=== PATIENT | female | born 1950 | race Caucasian/White ===

== ENCOUNTER 2019-02-09 14:37 | Outpatient (CLI) | payer OTHER, SELFPAY ==
--- NOTE | 2019-02-09 14:35 | DI.RAD_ITS ---
SYMPTOMS/DIAGNOSIS: RIGHT KNEE PAIN, M25.561 RIGHT KNEE: Three views of the right knee were obtained. Moderately severe narrowing of the lateral femorotibial joint space is seen. There is mild narrowing of the patellofemoral joint. Periarticular spurring is seen involving all three joint compartments. The bones are intact and normally mineralized. There is a small suprapatellar joint effusion. No radiopaque foreign bodies are seen in the soft tissues. IMPRESSION: Moderately severe osteoarthritis of the right knee.
== END 2019-02-09 14:57 ==
PROVIDERS: PCP Nurse Practitioner Family; Visit Provider Nurse Practitioner Adult Health
DX: M25.561 Pain in right knee (principal); M17.11 Unilateral primary osteoarthritis, right knee
CPT/HCPCS: 73562

== ENCOUNTER 2019-02-15 00:41 | Outpatient (CLI) | payer OTHER, SELFPAY ==
--- NOTE | 2019-02-15 08:30 | DI.MAMMO_ITS ---
SYMPTOM/DIAGNOSIS: SCREENING, Z12.31 MAMMOGRAMS: Mammograms were interpreted according to the usual protocol including computer analysis with CAD system, tomosynthesis and C view imaging. The breast tissue is of moderate radiodensity. When compared with the previous examination, interval development of a spiculated area of nodularity in the central portion of the right breast is demonstrated. There may be some small calcifications in the central portion of this lesion. The findings are highly suspicious for malignancy and further evaluation with mediolateral and craniocaudad compression spot films and ultrasound is recommended. IMPRESSION: Category 0. Breast density, category B. MQSA ASSESSMENT OF FINDINGS: Incomplete: Needs additional imaging evaluation. Category 0. Patient will receive a letter notifying them of these results. BI-RADS category B. There are scattered areas of fibroglandular density.
== END 2019-02-15 01:01 ==
PROVIDERS: PCP Nurse Practitioner Family; Visit Provider Nurse Practitioner Adult Health
DX: Z12.31 Encounter for screening mammogram for malignant neoplasm of breast (principal); R92.8 Other abnormal and inconclusive findings on diagnostic imaging of breast
CPT/HCPCS: 77063; 77067

== ENCOUNTER 2019-02-15 01:18 | Outpatient (CLI) | payer OTHER, SELFPAY ==
[2019-02-15 09:38] LABS: Anion Gap 11.3 mmol/L (3-11); BUN 23 mg/dL (7-18); CO2 27.7 mmol/L (21.0-32.0); CREATININE 0.78 mg/dL (0.55-1.02); Calcium 9.1 mg/dL (8.5-10.1); Chloride 104 mmol/L (98-107); Cholesterol 229 mg/dL (50-200); Glucose 92 mg/dL (70-100); HDL Cholesterol 59 mg/dL (40-60); LDL CHOLESTEROL 141 mg/dL (<100); Sodium 143 mmol/L (136-145); Triglyceride 115 mg/dL (30-150)
[2019-02-15 09:49] LABS: TSH (W/Ref FT4) 4.48 uIU/mL (0.358-3.74)
[2019-02-15 10:14] LABS: FREE T4 1.08 ng/dL (0.76-1.46)
== END 2019-02-15 01:38 ==
PROVIDERS: PCP Nurse Practitioner Family; Visit Provider Nurse Practitioner Adult Health
DX: I10 Essential (primary) hypertension (principal); R78.5 Finding of other psychotropic drug in blood; E03.9 Hypothyroidism, unspecified; Z13.1 Encounter for screening for diabetes mellitus
CPT/HCPCS: 36415; 80048; 80061; 83721; 84439; 84443

== ENCOUNTER 2019-02-21 00:28 | Outpatient (CLI) | payer OTHER, SELFPAY ==
--- NOTE | 2019-02-21 11:15 | DI.COMBO_ITS ---
SYMPTOM/DIAGNOSIS: F/U MAMMO, SPICULATED AREA OF NODULARITY CENTRAL PORTION RIGHT BREAST ADDITIONAL VIEWS AND RIGHT BREAST ULTRASOUND: Additional images are interpreted according to the usual protocol including tomosynthesis and 2D imaging. Additional views of the right breast again show a spiculated mass in the upper outer quadrant of the right breast posteriorly. There are also three new smaller asymmetric densities in the upper outer quadrant of the right breast in the retroareolar region. No suspicious microcalcifications are seen. A right breast ultrasound was performed. In the upper outer quadrant of the right breast, there is a 2.2 by 1.6 by 1.7 cm. hypoechoic, spiculated mass at the 9 o'clock position 5 cm. from the nipple. This appears to correspond to the larger deeper spiculated mass seen on the mammogram. In addition, there are three hypoechoic spiculated masses in the right breast, the largest is at the 10 o'clock position 5 cm. from the nipple and measures 0.8 by 0.6 by 0.7 cm. The two smaller lesions are at 9 o'clock 4 cm. from the nipple and measure 0.6 by 0.5 cm. IMPRESSION: Findings highly suspicious for malignancy. 2.2 cm. spiculated mass at the 9 o'clock position 5 cm. from the nipple which corresponds to the larger lesion seen on the mammogram. Three smaller new similar lesions in the upper outer quadrant which may reflect malignancy. MQSA ASSESSMENT OF FINDINGS: Highly suspicious of malignancy. Biopsy should be obtained. Category 5. Patient will receive a letter notifying them of these results. BI-RADS category B. There are scattered areas of fibroglandular density. The findings were discussed with the patient and the primary care team on the date of the examination.
== END 2019-02-21 00:48 ==
PROVIDERS: PCP Nurse Practitioner Family; Visit Provider Nurse Practitioner Adult Health
DX: Z12.31 Encounter for screening mammogram for malignant neoplasm of breast (principal); R92.8 Other abnormal and inconclusive findings on diagnostic imaging of breast; N63.11 Unspecified lump in the right breast, upper outer quadrant
CPT/HCPCS: 76642; 77063; 77067

== ENCOUNTER 2019-02-28 00:39 | Outpatient (CLI) | payer OTHER, SELFPAY ==
--- NOTE | 2019-02-28 13:27 | DI.US_ITS ---
SYMPTOMS/DIAGNOSIS: F/U ABNORMAL MAMMO, SPICULATED AREA OF NODULARITY IN CENTRAL PORTION ULTRASOUND-GUIDED NEEDLE BIOPSY OF THE RIGHT BREAST: A right breast mass was successfully biopsied by Dr. Hull under ultrasound guidance. Also, two of the three smaller nodules were biopsied. The tissue sent to pathology for histologic review.
--- NOTE | 2019-02-28 14:00 | BREAST_PTH ---
PATIENT: Nery Rueda LOC: [facility] U#:[id number] AGE/SX: 68/F ROOM: RE02/28/[address]: Dot Hull MD : 1950 BED: DIS: 02/28/2019 SPEC #: [id number] RECD: 03/01/19 12:04 STATUS: ROBBY MENDOZA #: [id number] BRE: 02/28/19 14:[address]: Dot Hull DEPT: Surgical Specimen RECD BY: Neena Donnelly ENTERED: 03/01/19 12:05 SP TYPE: Breast OTHR DR: La Levy APRN Tissues: 1 - BREAST BX NEEDLE 2 - BREAST BX NEEDLE Procedures: GROSS AND MICRO LEVEL 4 HERCEPTEST ESTROGEN/PROGESTERONE RECEPTOR IPEX STAIN Comments: [id number]
--- NOTE | 2019-02-28 14:34 | W.PROCNOTE ---
Date of service: 02/28/19 Time of Service: 14:35 Procedure Note Date of procedure: 02/28/19 Procedure: US guided Core needle biopsy of Right breast lesion Surgeon/Proceduralist/Physician: Dot Hull Procedure Diagnosis: Right Breast mass x2 Procedure Indications: Patient had a routine mammogram which showed lesions in the right breast. A larger one at 10 o\clock and 2 small once at 9 o'clock. Core needle biopsy was recommended and discussed with patient and she wished to proceed. No guarantees were given or implied. Procedure Description: Consent was obtained patient was placed in a supine position on the ultrasound table the lesions were identified an area was marked and the skin. The skin was cleaned with chlorhexidine and infiltrated with half percent Marcaine. A small incision was then made in the skin with an 11 blade. A 14-gauge core needle biopsy needle was placed through this opening and under ultrasound guidance 2 core biopsies were done of the larger lesion. The biopsies were placed on a piece of Telfa and placed in formalin. Through the same incision the smaller lesions at 9:00 were biopsied with a 14-gauge needle. 2 core biopsies were done. These were placed on Telfa and placed in a different bottle in formalin. The skin was cleaned and dried some pressure was applied to stop the bleeding. And a Band-Aid was applied. The patient tolerated the procedure well and there were no complications.
== END 2019-02-28 00:59 ==
PROVIDERS: PCP Nurse Practitioner Family; Visit Provider Surgery
DX: C50.411 Malignant neoplasm of upper-outer quadrant of right female breast (principal); C50.511 Malignant neoplasm of lower-outer quadrant of right female breast; Z17.0 Estrogen receptor positive status [ER+]
CPT/HCPCS: 19083; 19084; 76942; 88305; 88360

== ENCOUNTER 2019-04-04 14:13 | Observation (INO) | payer OTHER, SELFPAY ==
[2019-04-04] VITALS (14 sets, daily range): BP systolic 114–158; BP diastolic 31–97; PULSE 64–85; RESP 11–18; TEMP 35.9–37.3; O2SAT 94–100
--- NOTE | 2019-04-04 07:06 | W.PM.HP.N ---
Date of service: 04/04/19 Time of Service: 07:30 Assessment and Plan (1) Invasive ductal carcinoma of breast: Current visit: No Status: Acute P\\ Right Mastectomy with [place] Lymph node biopsy Risks, benefits and complications were reviewed. Complications include but are not limited to bleeding, seroma, flap necrosis, wound dehiscence, infection, injury to nerves and adverse reaction to the medications. Questions were entertained and answered to her satisfaction and she wished to proceed. No guarantees were given or implied. Qualifiers: Laterality: right Qualified Code(s): C50.911 - Malignant neoplasm of unspecified site of right female breast History of Present Illness Narrative: Nery is back to see me today to discuss her pathology results. She underwent a mammogram on 02/15/19 . They found 2 areas that were suspicious for Cancer. US was done and showed 4 lesions all within the same quadrant of the Breast. RIGHT BREAST ADDITIONAL VIEWS AND RIGHT BREAST ULTRASOUND: Additional images are interpreted according to the usual protocol including tomosynthesis and 2D imaging. Additional views of the right breast again show a spiculated mass in the upper outer quadrant of the right breast posteriorly. There are also three new smaller asymmetric densities in the upper outer quadrant of the right breast in the retroareolar region. No suspicious microcalcifications are seen. A right breast ultrasound was performed. In the upper outer quadrant of the right breast, there is a 2.2 by 1.6 by 1.7 cm. hypoechoic, spiculated mass at the 9 o'clock position 5 cm. from the nipple. This appears to correspond to the larger deeper spiculated mass seen on the mammogram. In addition, there are three hypoechoic spiculated masses in the right breast, the largest is at the 10 o'clock position 5 cm. from the nipple and measures 0.8 by 0.6 by 0.7 cm. The two smaller lesions are at 9 o'clock 4 cm. from the nipple and measure 0.6 by 0.5 cm. IMPRESSION: Findings highly suspicious for malignancy. 2.2 cm. spiculated mass at the 9 o'clock position 5 cm. from the nipple which corresponds to the larger lesion seen on the mammogram. Three smaller new similar lesions in the upper outer quadrant which may reflect malignancy. Nery underwent Core needle biopsy of the lesion at 10 o'clock and the larger one of the 3 lesions at 9 o'clock. 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 They are both ER/AK + and Her-2 negative. Nery has not noted any masses in her axilla and no changes in the skin. There has been no nipple discharge. There is no family history of Breast cancer that she is aware of. She is otherwise healthy. No history of heart disease. No SOB on exertion. MRI was done which showed the involved area to be >8 cm in size I discussed this with Nery and I don't think that I can get a good cosmetic result with such a large area to remove. I recommend a Mastectomy. Nery has agreed [facility] Medical History Osteoarthritis of right knee (Chronic) Breast mass, right (Acute) Glaucoma (Chronic) Essential hypertension (Chronic 02/13/16) Family history of coronary artery disease (Chronic 10/07/14) Hyperlipidemia (Chronic 09/14/12) Subclinical hypothyroidism (Chronic 09/25/13) Surgical History History of tubal ligation (Resolved ~1974) History of appendectomy (Resolved) Family History Mother Ovarian cancer Father Heart disease Alcohol abuse Coronary artery disease Brother Alcohol abuse Coronary artery disease Maternal Grandfather Alcohol abuse Coronary artery disease Son Alcohol abuse Coronary artery disease Myocardial infarction Sister Hypertension Paternal Grandmother Stroke Paternal Grandfather Stroke Social History Smoking/Tobacco Use Status: Never Alcohol Intake: current Alcohol Intake frequency: holidays/special occasions only Drug use: Never Substance use type: does not use Adopted: No Foster care: No Household members: spouse Housing: house Number of Children: 3 Communication Needs: None 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, [employer] What is your relationship status?: Panel score (0-1 are the most socially isolated patients): 1 Seatbelt use: always Drive intox or ride w/intox backhaul driver: No Do you feel safe at home: Yes Do you feel safe in your relationship?: Yes Meds Home Medications Medication Instructions Recorded Confirmed Type bimatoprost 0.01 % eye drops 1 drp OP QPM ml 02/09/19 04/04/19 History brimonidine-timolol 0.2 %-0.5 % 1 drp OP QAM ml 02/09/19 04/04/19 History eye drops hydrochlorothiazide 12.5 mg tablet 12.5 mg PO DAILY #90 tab-cap 02/09/19 04/04/19 Rx Allergies Allergy/AdvReac Type Severity Reaction Status Date / Time No Known Allergies Allergy Verified 04/04/19 07:21 Exam Const General: cooperative, comfortable and no acute distress [facility] Head: normocephalic and atraumatic Eyes Pupils: PERRL Resp Effort & Inspection: normal respiratory effort Auscultation: clear to auscultation bilaterally Cardio Rate: regular rate Rhythm: regular rhythm Heart Sounds: no gallops, no murmurs and no rubs
--- NOTE | 2019-04-04 07:12 | HPE_ITS ---
Date of service: 04/04/19 Time of Service: 07:30 Assessment and Plan (1) Invasive ductal carcinoma of breast: Current visit: No Status: Acute P\\ Right Mastectomy with [place] Lymph node biopsy Risks, benefits and complications were reviewed. Complications include but are not limited to bleeding, seroma, flap necrosis, wound dehiscence, infection, injury to nerves and adverse reaction to the medications. Questions were entertained and answered to her satisfaction and she wished to proceed. No guarantees were given or implied. Qualifiers: Laterality: right Qualified Code(s): C50.911 - Malignant neoplasm of unspecified site of right female breast History of Present Illness Narrative: Nery is back to see me today to discuss her pathology results. She underwent a mammogram on 02/15/19 . They found 2 areas that were suspicious for Cancer. US was done and showed 4 lesions all within the same quadrant of the Breast. RIGHT BREAST ADDITIONAL VIEWS AND RIGHT BREAST ULTRASOUND: Additional images are interpreted according to the usual protocol including tomosynthesis and 2D imaging. Additional views of the right breast again show a spiculated mass in the upper outer quadrant of the right breast posteriorly. There are also three new smaller asymmetric densities in the upper outer quadrant of the right breast in the retroareolar region. No suspicious microcalcifications are seen. A right breast ultrasound was performed. In the upper outer quadrant of the right breast, there is a 2.2 by 1.6 by 1.7 cm. hypoechoic, spiculated mass at the 9 o'clock position 5 cm. from the nipple. This appears to correspond to the larger deeper spiculated mass seen on the mammogram. In addition, there are three hypoechoic spiculated masses in the right breast, the largest is at the 10 o'clock position 5 cm. from the nipple and measures 0.8 by 0.6 by 0.7 cm. The two smaller lesions are at 9 o'clock 4 cm. from the nipple and measure 0.6 by 0.5 cm. IMPRESSION: Findings highly suspicious for malignancy. 2.2 cm. spiculated mass at the 9 o'clock position 5 cm. from the nipple which corresponds to the larger lesion seen on the mammogram. Three smaller new similar lesions in the upper outer quadrant which may reflect malignancy. Nery underwent Core needle biopsy of the lesion at 10 o'clock and the larger one of the 3 lesions at 9 o'clock. 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 They are both ER/[place] + and Her- 2 negative. Nery has not noted any masses in her axilla and no changes in the skin. There has been no nipple discharge. There is no family history of Breast cancer that she is aware of. She is otherwise healthy. No history of heart disease. No SOB on exertion. MRI was done which showed the involved area to be >8 cm in size I discussed this with Nery and I don't think that I can get a good cosmetic result with such a large area to remove. I recommend a Mastectomy. Nery has agreed [facility] Medical History Osteoarthritis of right knee (Chronic) Breast mass, right (Acute) Glaucoma (Chronic) Essential hypertension (Chronic 02/13/16) Family history of coronary artery disease (Chronic 10/07/14) Hyperlipidemia (Chronic 09/14/12) Subclinical hypothyroidism (Chronic 09/25/13) Surgical History History of tubal ligation (Resolved ~1974) History of appendectomy (Resolved) Family History Mother Ovarian cancer Father Heart disease Alcohol abuse Coronary artery disease Brother Alcohol abuse Coronary artery disease Maternal Grandfather Alcohol abuse Coronary artery disease Son Alcohol abuse Coronary artery disease Myocardial infarction Sister Hypertension Paternal Grandmother Stroke Paternal Grandfather Stroke Social History Smoking/Tobacco Use Status: Never Alcohol Intake: current Alcohol Intake frequency: holidays/special occasions only Drug use: Never Substance use type: does not use Adopted: No Foster care: No Household members: spouse Housing: house Number of Children: 3 Communication Needs: None 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, [employer] What is your relationship status?: Panel score (0-1 are the most socially isolated patients): 1 Seatbelt use: always Drive intox or ride w/intox limousine driver: No Do you feel safe at home: Yes Do you feel safe in your relationship?: Yes Meds Home Medications Medication Instructions Recorded Confirmed Type bimatoprost 0.01 % eye drops 1 drp OP QPM ml 02/09/19 04/04/19 History brimonidine-timolol 0.2 %-0.5 % 1 drp OP QAM ml 02/09/19 04/04/19 History eye drops hydrochlorothiazide 12.5 mg tablet 12.5 mg PO DAILY #90 tab-cap 02/09/19 04/04/19 Rx Allergies Allergy/AdvReac Type Severity Reaction Status Date / Time No Known Allergies Allergy Verified 04/04/19 07:21 Exam Const General: cooperative, comfortable and no acute distress [facility] Head: normocephalic and atraumatic Eyes Pupils: PERRL Resp Effort & Inspection: normal respiratory effort Auscultation: clear to auscultation bilaterally Cardio Rate: regular rate Rhythm: regular rhythm Heart Sounds: no gallops, no murmurs and no rubs
--- NOTE | 2019-04-04 07:12 | W.PM.OP ---
Date of service: 04/04/19 Time of Service: Operative Note DATE OF PROCEDURE: 04/04/19 PRE-OP DIAGNOSIS: Right Invasive Breast Cancer POST-OP DIAGNOSIS: same PROCEDURE: Right Breast Mastectomy with sentinel lymph node biopsy SURGEON: Dot Hull PROPERTY CLAIMS MANAGER: Hannah Chavez ANESTHESIA: GETA, regional (Erector block) and local ESTIMATED BLOOD LOSS: 100 PATHOLOGY: other (Right Breast and lymph node biopsy) COMPLICATIONS: None Patient was transported to: PACU Patient's condition: stable Indications: Mrs Rueda is a pleasant 68 year old female diagnosed with Right invasive ductal carcinoma. It is multifocal. Risks, benefits and complications of a mastectomy were reviewed. Patient wished to proceed and no guarantees were given or implied. Findings: One hot and enlarged right axillary lymph node Procedure Description: After informed consent was obtained the patient was taken to the PACU for anesthesia to do a erector spinae block on the right side. Once the block was done the patient was taken into the operating room and placed in a supine position. She was placed under general anesthesia and an LMA was placed. SCDs were applied. Next 2 cc of methylene blue was injected into the dermis around the nipple and the area was massaged. Using the [employer] counter the axilla was scanned and a salome was placed on the skin at the hottest area. The right chest and right axilla were prepped and draped in a sterile surgical fashion. At this point a timeout was done. The patient's name, date of , antibiotic prophylaxis, DVT prophylaxis were reviewed. Fire risk with assessed. An elliptical incision was marked around the nipple. Next .5% Marcaine with epinephrine was injected into the dermis along the previously marked area. Using a 10 blade the skin was incised along the marked area. The medial aspect of the incision was grasped with Jose's and pulled up and then using cautery a flap was created medially towards the sternum. The dissection was taken down to the fascia. The superior skin was then grasped with the Jose's and using cautery another skin flap was created superiorly all the way to the clavicle. Next the flap was created inferiorly in the same fashion. Bleeding was stopped either with cautery or suture ligation as blood vessels were encountered. The subcutaneous tissue was grasped at the medial corner and the tissue was removed including the fascia off of the pectoralis muscle. Laterally the dissection was taken to the edge of the pectoralis muscle. Once the entire breast tissue was removed it was marked with a suture superiorly and placed in formalin. Next the skin was grasped laterally and using hemostat I dissected down into the axilla. The [place] counter was used to identify the sentinel lymph node. Once the lymph node was removed ache 10-second count was done. The count was over 38,000. The sentinel lymph node was placed into a separate container into formalin. The radha counter was then placed back into the axilla and no other hot lymph nodes were identified. Post lymph node 10-second count was less than 10% of the initial count. Some bleeding was noted within the axilla and this was stopped with cautery as well as suture ligation. It was still oozy at this point but I did not want to cauterize close to the chest wall so as to not injure any of the nerves. FloSeal was injected into the axilla. The pectoralis muscle was then inspected and again small bleeders were stopped with either cautery or suture ligation. Next a small stab wound was done on the medial aspect of the wound and a 10 Italian drain was placed. The superior skin flap was then brought down and it overlapped the inferior border of the wound by about a centimeter and a half. A 1/2 cm strip of skin and subcutaneous tissue was then cut away from the lower flap. This was marked with a single suture superiorly which would be abutting the inferior border of the mastectomy specimen. A double suture was placed inferiorly. This piece of tissue was then placed into formalin as well. FloSeal was then placed over the pectoralis muscle. The skin edges were then approximated with 2-0 Vicryl interrupted sutures in the subcutaneous tissue. The dermis was re-approximated with two, 4-0 Vicryl running sutures. The CESAR drain was secured with 2-0 nylon. The skin was cleaned and dried. Mastisol and Steri-Strips were applied. 4 x 4's and ABDs were applied to the incision and secured with tape. At this point the patient was woken up extubated and moved over to the [facility]. Patient was taken back to recovery room in stable condition. Sponge instrument needle counts were correct x2 at the end of the case. There were no immediate complications.
[2019-04-04] MEDS: Lactated Ringers 1,000 ML 80 ML IV ×2 (07:57→15:01)
[2019-04-04] MEDS: ceFAZolin 2 GM/50 ML BAG IVPB (10:11)
--- NOTE | 2019-04-04 10:15 | DI.NM_ITS ---
SYMPTOM/DIAGNOSIS: RT BREAST CA, C50.919 LYMPHOCINTIGRAPHY, INJECTION ONLY: 1.0 millicuries of Sulfur Colloid was administered intradermally by Dr. Hull . Patient was followed in the operating room by shielded Gamma probe.
--- NOTE | 2019-04-04 11:05 | BREAST_PTH ---
PATIENT: Nery Rueda LOC: U#:[id number] AGE/SX: 68/F ROOM: 216 RE04/04/[address]: Dot Hull MD : 1950 BED: A DIS: 04/05/2019 SPEC #: [id number] RECD: 04/05/19 11:17 STATUS: ROBBY REQ #: [id number] BRE: 04/04/19 11:[address]: Dot Hull DEPT: Surgical Specimen RECD BY: Neena Donnelly ENTERED: 04/05/19 11:23 SP TYPE: Breast OTHR DR: La Levy APRN Tissues: 1 - BREAST MASTECTOMY PARTIAL/SIMPLE 2 - LYMPH NODE BIOPSY Procedures: GROSS AND MICRO LEVEL 5 Comments: [id number] (BOTH SAMPLES RADIOACTIVE)
[2019-04-04] MEDS: fentaNYL 100 MCG/2 ML VIAL IVP (12:59)
[2019-04-04] MEDS: DEXTROSE 5%-0.45% SALINE 1,000 ML 30 ML IV (15:10)
[2019-04-04] MEDS: traMADol 50 MG TAB PO (22:18)
[2019-04-04] MEDS: Acetaminophen 325 MG TAB 650 MG PO (22:18)
[2019-04-04] MEDS: Bimatoprost 0.01% 2.5 ML BTL OU (22:19)
[2019-04-05 04:47] VITALS: BP 117/61; PULSE 71; RESP 18; TEMP 36.8; O2SAT 94
[2019-04-05 07:02] LABS: HCT 35.8 % (36.0-46.0); HGB 11.7 g/dL (12.0-15.5)
--- NOTE | 2019-04-05 08:08 | PDOC.CMIN ---
- If Service Date Differs Date of service: 04/05/19 Time of Service: 08:08 Care Management Initial Assess REASON FOR HOSPITALIZATION:: Invasive ductal carcinoma of breast PAST MEDICAL HISTORY/PAST SURGICAL HISTORY:: Medical History: Osteoarthritis of right knee (Chronic). Breast mass, right (Acute). Glaucoma (Chronic). Essential hypertension (Chronic 02/13/16). Family history of coronary artery disease (Chronic 10/07/14). Hyperlipidemia (Chronic 09/14/12). Subclinical hypothyroidism (Chronic 09/25/13). Surgical History: History of tubal ligation (Resolved ~1974). History of appendectomy (Resolved) PREVIOUS FUNCTIONAL STATUS/SOCIAL/FAMILY SUPPORTS:: Nery was dressed and on her way home when CM came to visit. She is returning to her home with her with whom she lives. 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 CURRENT FUNCTIONAL STATUS:: Nery was in the process of being discharged when visited. She is in no pain since she received an analgesic block that she was told would last up to 2 days. She stated that she is just relieved that this is behind her. ADVANCE DIRECTIVES:: None on file at [facility] CODE STATUS:: Full Code INSURANCE COVERAGE / FINANCIAL ISSUES:: [facility] CURRENT HOME/COMMUNITY SERVICES/EQUIPMENT:: none PRIMARY CARE PHYSICIAN:: La Levy POTENTIAL DISCHARGE NEEDS:: none PATIENT/FAMILY EDUCATION NEEDS:: Discharge plan, limitations, follow up plan of care, Ask me Three. TRANSPORTATION:: via automobile with PLAN:: Nery is being discharged home today with no home services. She has a follow up appointment with her surgeon on Tuesday and will follow up with her discharge plan of care. Her will transport her home via private automobile.
[2019-04-05] MEDS: hydroCHLOROthiazide 12.5 MG TAB PO (08:21)
[2019-04-05] MEDS: traMADol 50 MG TAB PO (08:21)
[2019-04-05 08:25] VITALS: BP 116/60; PULSE 80; RESP 16; TEMP 37.1; O2SAT 97
--- NOTE | 2019-04-05 09:23 | W.PM.PROGNOT ---
Date of Service Date of service: 04/05/19 Time of Service: : Assessment and Plan (1) Invasive ductal carcinoma of breast: Current visit: No Status: Acute POD #1 no further bleeding pain controlled. no signs of pneumnia/infection/DVT pt will be d/c'ed to home w/ CESAR- she was giving instructions in care and will bring output #'s to F/u appt. pt given instructions in wound care/acitivty/warning signs's and F/u appt. see d/c summary Qualifiers: Laterality: right Qualified Code(s): C50.911 - Malignant neoplasm of unspecified site of right female breast Subjective Interval history since last seen: Pt is doing well. no headaches. No CP or SOB. no productive cough. no dysuria. no leg pain or swelling. pain is controlled. no fevers. no sore throat. no eye pain or swelling. tolerating po's. no n/v. urinating blue still- but no dysuria. no BM. outpt from is 50cc overnight. sanguinous. Exam Const General: cooperative, healthy appearing, comfortable, no acute distress, well developed and well groomed Nutritional Appearance: average body habitus and well nourished Orientation: alert, awake and oriented x3 HENMT Head: normal to inspection, normocephalic and atraumatic Ears: hearing grossly normal bilaterally and external ears normal General nose exam: external nose normal Face and sinus: normal facial exam and sinuses nontender Mouth: oral mucosae normal, lip normal, tongue normal and moist mucous membranes Teeth and gingiva: dentition normal Eyes General: appearance normal, both eyes and all related structures Conjunctivae: conjunctivae normal Sclera: sclerae normal Pupils: PERRL Neck Neck: normal visual inspection and full ROM Chest Chest: normal inspection of the chest Resp Effort & Inspection: normal respiratory effort, able to speak in complete sentences, no cough, no nasal flaring, not tachypneic and no use of accessory muscles Auscultation: clear to auscultation bilaterally, no rales, no rhonchi and no wheezes Cardio Jugular venous pressure: no JVD Rate: regular rate Rhythm: regular rhythm GI Inspection: normal to inspection, no edema and non-distended Palpation: soft, no masses, nontender and No ascites Auscultation: normal bowel sounds Skin General skin exam: no rashes or lesions noted Trauma: no lacerations or abrasions Other: incision shows no redness/swelling. signs of old bleeding. decreased drainage over night. no hematomas. no bruising. Neuro General: alert, oriented x3, oriented, gait normal, moves all extremities, no focal motor deficits and CN's II-XI intact bilaterally Cognition: normal cognition Speech: speech normal Gait: normal gait Motor: muscle tone normal throughout Extrem General: normal to inspection, full ROM and no clubbing, cyanosis or edema Psych Appearance: grossly normal and well kempt Mental Status: mental status grossly normal Speech and Movement: speech and movement normal Affect: normal affect Objective Objective Clinical Data: Abnormal lab results 04/05/19 Range/Units 06:25 Hgb 11.7 L (12.0-15.5) g/dL Hct 35.8 L (36.0-46.0) % Vital Signs Temperature 37.1 C 04/05/19 08:25 Temperature Source Tympanic 04/05/19 08:25 Pulse 80 04/05/19 08:25 Pulse Rhythm Regular 04/04/19 22:07 Respiratory Rate 16 04/05/19 08:25 Respiratory Effort Non-Labored 04/04/19 22:07 Respiratory Depth Normal 04/04/19 22:07 Respiratory Pattern Normal 04/04/19 22:07 Blood Pressure 116/60 04/05/19 08:25 Pulse Oximetry 97 04/05/19 08:25 Respiratory End-tidal CO2 39 04/04/19 13:15 Oxygen Delivery Method Room Air 04/05/19 08:25 Oxygen Flow Rate 0 04/05/19 08:25 Pain Level 0 04/05/19 08:25 Comment 04/05/19 08:25 Intake & Output 04/04/19 04/04/19 04/05/19 11:59 23:59 11:59 Intake Total 50 / 4938.849 0715.167 / 1685.167 Output Total 100 / 1225 1125 / 1225 325 / 325 Balance -50 / 460.167 510.167 / 460.167 -325 / -325 Weight 87.2 kg Intake: IV 50 / 8713.860 3102.167 / 1445.167 Oral 240 / 240 Output: Drainage 225 / 225 25 / 25 Right Chest 225 / 225 25 / 25 Urine 900 / 900 300 / 300 Estimated Blood Loss 100 / 100 Other: Urine Color Pale Green Green Urine Appearance Clear Clear Urine Odor None None Comment Voids x2 in toilet. Emesis Description None Voiding Methods Toilet Laboratory Results Hgb 11.7 g/dL (12.0-15.5) L 04/05/19 06:25 Hct 35.8 % (36.0-46.0) L 04/05/19 06:25
--- NOTE | 2019-04-05 11:03 | INITIAL_ITS ---
- If Service Date Differs Date of service: 04/05/19 Time of Service: 08:08 Care Management Initial Assess REASON FOR HOSPITALIZATION:: Invasive ductal carcinoma of breast PAST MEDICAL HISTORY/PAST SURGICAL HISTORY:: Medical History: Osteoarthritis of right knee (Chronic). Breast mass, right (Acute). Glaucoma (Chronic). Essential hypertension (Chronic 02/13/16). Family history of coronary artery disease (Chronic 10/07/14). Hyperlipidemia (Chronic 09/14/12). Subclinical hypothyroidism (Chronic 09/25/13). Surgical History: History of tubal ligation (Resolved ~1974). History of appendectomy (Resolved) PREVIOUS FUNCTIONAL STATUS/SOCIAL/FAMILY SUPPORTS:: Nery was dressed and on her way home when CM came to visit. She is returning to her home with her with whom she lives. 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 CURRENT FUNCTIONAL STATUS:: Nery was in the process of being discharged when visited. She is in no pain since she received an analgesic block that she was told would last up to 2 days. She stated that she is just relieved that this is behind her. ADVANCE DIRECTIVES:: None on file at [facility] CODE STATUS:: Full Code INSURANCE COVERAGE / FINANCIAL ISSUES:: [facility] CURRENT HOME/COMMUNITY SERVICES/EQUIPMENT:: none PRIMARY CARE PHYSICIAN:: La Levy POTENTIAL DISCHARGE NEEDS:: none PATIENT/FAMILY EDUCATION NEEDS:: Discharge plan, limitations, follow up plan of care, Ask me Three. TRANSPORTATION:: via automobile with PLAN:: Nery is being discharged home today with no home services. She has a follow up appointment with her surgeon on Tuesday and will follow up with her discharge plan of care. Her will transport her home via private automobile.
--- NOTE | 2019-04-05 11:24 | W.PM.DS.N ---
Date of service: 04/05/19 Time of Service: 11:25 DS: Diagnosis Discharge Diagnosis (1) Invasive ductal carcinoma of breast: Status: Acute Discharge Plan Disposition Patient Disposition: HOME Condition: Improving Discharge Details Reason For Visit: POST MASTECTOMY PAIN Admit Date/Time: 04/04/19 14:13 Admit Provider: Dot Hull Attending Provider: Dot Hull Primary Care Provider: La Levy Home Meds and New Rx's Prescriptions: New tramadol [Ultram] 50 mg tablet 50 mg PO Q4H PRN PRN (Reason: pain) Qty: 14 RF: 0 ibuprofen 600 mg tablet 600 mg PO TID-QID PRN (Reason: pain (s) Qty: 60 RF: 4 Continued hydrochlorothiazide 12.5 mg tablet 12.5 mg PO DAILY Qty: 90 RF: 3 Lumigan 0.01 % drops 1 drp OP QPM RF: 0 Combigan 0.2-0.5 % drops 1 drp OP QAM RF: 0 Discharge Instructions Additional Instructions: Keep an ice bag on the incision. 20 minutes on and 20 minutes off. Ice keeps the swelling down and swelling causes pain. Make sure you wrap the ice pack in a towel and don't apply directly to the skin. -Alternate every 4 hours with Tylenol 650mg and Ibuprofen 600mg. Use the tramadol for breakthrough pain. Always take pain medications with food and not on an empty stomach. -No driving x5days or if you are taking narcotic pain medications. -Do Not remove any steri tapes (white tapes) that cover the incision. If you have steri-tapes on your incision, do not use antibacterial ointment. -Follow-up with Dr. Hull on Tuesday -regular diet -no straining to move bowels -pain meds are very constipating: if you do not move your bowels daily take a dose of OTC milk of magnesia -It is ok to shower. No bathe, soaking, swimming or hot tubs -Keep wound clean and dry. Wash incision with soap and water daily. Pat dry, don't rub. -Empty CESAR drain 3-4x a day. Record outputs and bring the numbers with to clinic follow up appt. You may find that your appetite is smaller. Eat 3-6 small meals throughout the day. It is important to drink lots of water after surgery, 6-10 glasses a day. -If you were given an incentive spirometry (\breathing multiple effect evaporator operator\[id number]), continue to do this 10x/hour while awake. -We do want you up walking, at least 5-6 times per day. This is very important to prevent pneumonia and blood clots. You can climb stairs, take them slowly. -No lifting over 5 pounds. This is very important to avoid developing a hernia in your incision. -You may find that you are very tired after surgery- this is normal. -please do not smoke for a minimum of 72 hours after surgery. Stand Alone Forms: DSU Post op Instructions, Scopolamine Skin Patch, Jose Lama (DSU), Nursing Discharge Form Referrals: Dot Hull MD [ [facility] STAFF PHYSICIAN] - 04/10/19 2:30 pm Activity:: no lifting over 5#'s. henrry w/ right arm. gentle range of motion Equipment/Supplies:: post mstectomy garment Diet:: As Tolerated Discharge Orders Discharge Orders: Discharge Order (Routine); Ordered 04/05/19 Ordered By: Hannah Ny Discharge Data Discharge Date/Time-TO BE ENTERED AT DEPARTURE: 04/05/19 12:14 DS: Summary Status at Discharge Functional status at discharge: independent ambulation Overall status at discharge: patient is back to baseline Time Spent with Patient Less than 30 minutes Quality: AMI Clinical Trial Participant: No Exam Narrative Exam Narrative: see progress notes from this date DS: Data Vitals/I&O Vitals and I&O: Vital Signs Temperature 37.1 C 04/05/19 08:25 Temperature Source Tympanic 04/05/19 08:25 Pulse 80 04/05/19 08:25 Pulse Rhythm Regular 04/05/19 07:30 Respiratory Rate 16 04/05/19 08:25 Respiratory Effort Non-Labored 04/05/19 07:30 Respiratory Depth Normal 04/05/19 07:30 Respiratory Pattern Normal 04/05/19 07:30 Blood Pressure 116/60 04/05/19 08:25 Pulse Oximetry 97 04/05/19 08:25 Respiratory End-tidal CO2 39 04/04/19 13:15 Oxygen Delivery Method Room Air 04/05/19 08:25 Oxygen Flow Rate 0 04/05/19 08:25 Pain Level 0 04/05/19 08:25 Comment 04/05/19 08:25 Intake & Output 04/04/19 04/04/19 04/05/19 11:59 23:59 11:59 Intake Total 50 / 5648.637 8498.167 / 1685.167 Output Total 100 / 1225 1125 / 1225 775 / 775 Balance -50 / 460.167 510.167 / 460.167 -775 / -775 Weight 87.2 kg Intake: IV 50 / 7113.423 8232.167 / 1445.167 Oral 240 / 240 Output: Drainage 225 / 225 75 / 75 Right Chest 225 / 225 75 / 75 Urine 900 / 900 700 / 700 Estimated Blood Loss 100 / 100 Other: Urine Color Pale Green Green Urine Appearance Clear Clear Urine Odor None None Comment Voids x2 in toilet. urine has blueish tingue from dye used for breast surgery Emesis Description None Voiding Methods Toilet Toilet Labs on day of discharge: Labs from last 24 hours 04/05/19 06:25 Hgb 11.7 L Hct 35.8 L PFSH Medical History Invasive ductal carcinoma of breast (Acute ~04/04/19) Osteoarthritis of right knee (Chronic) Breast mass, right (Acute) Glaucoma (Chronic) Essential hypertension (Chronic 02/13/16) Family history of coronary artery disease (Chronic 10/07/14) Hyperlipidemia (Chronic 09/14/12) Subclinical hypothyroidism (Chronic 09/25/13) Surgical History History of tubal ligation (Resolved ~1974) History of appendectomy (Resolved) Family History Mother Ovarian cancer Father Heart disease Alcohol abuse Coronary artery disease Brother Alcohol abuse Coronary artery disease Maternal Grandfather Alcohol abuse Coronary artery disease Son Alcohol abuse Coronary artery disease Myocardial infarction Sister Hypertension Paternal Grandmother Stroke Paternal Grandfather Stroke Social History Smoking/Tobacco Use Status: Never Alcohol Intake: current Alcohol Intake frequency: holidays/special occasions only Drug use: Never Substance use type: does not use Adopted: No Foster care: No Household members: spouse Housing: house Number of Children: 3 Communication Needs: None 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 What is your relationship status?: Panel score (0-1 are the most socially isolated patients): 1 Seatbelt use: always Drive intox or ride w/intox shag truck driver: No Do you feel safe at home: Yes Do you feel safe in your relationship?: Yes
--- NOTE | 2019-04-05 15:05 | CHAPLAIN ---
Nery was dressed and ready to be discharged when I stopped in. Her was with her. 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. She told me about her diagnosis and surgery. She will be meeting with the surgeon next week, and hasn't yet met with an oncologist. Her daughter, who is an ER nurse, has offered to stay with her for a couple of days. Another daughter is staying in touch and offering support as well. 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 She said Jaimee Daniels RN, was very helpful to her yesterday and that the traveling nurse last night was also very kind and supportive as well.
== END 2019-04-05 12:14 | disposition home or self-care (01) ==
LOC: MS 15:07
PROVIDERS: Admitting Provider Surgery; PCP Nurse Practitioner Family; Visit Provider Surgery
PROC: 0HTT0ZZ Resection of Right Breast, Open Approach (ICD-10-PCS; CPT 19307; principal; 2019-04-04 10:15)
PROC: 0HTT0ZZ Resection of Right Breast, Open Approach (ICD-10-PCS; CPT 19307; 2019-04-04 10:15)
DX: C50.411 Malignant neoplasm of upper-outer quadrant of right female breast (principal); C77.3 Secondary and unspecified malignant neoplasm of axilla and upper limb lymph nodes; Z17.0 Estrogen receptor positive status [ER+]; I10 Essential (primary) hypertension; E78.5 Hyperlipidemia, unspecified; G89.18 Other acute postprocedural pain
CPT/HCPCS: 19307; 38792; 36415; 76942; 88305; 99238; A9541; NC; 85014; 85018; 88307; 88309; G0378; J0131; J0690; J1100; J1200; J1885; J2250; J2405; J3010

== ENCOUNTER 2019-05-08 07:17 | Outpatient (CLI) | payer OTHER, SELFPAY ==
[2019-05-08 08:08] LABS: Abs Immature Grans 0.01 k/cumm (0.0-0.09); Absolute Basophil Count 0.02 k/cumm (0.0-0.2); Absolute Eosinophil Count 0.06 k/cumm (0.0-0.7); Absolute Monocyte Count 0.29 k/cumm (0.11-0.7); Absolute Neutrophil Count 1.97 k/cumm (1.2-6.7); Basophils % 0.6; Eosinophils % 1.7; HCT 41.5 % (36.0-46.0); HGB 13.7 g/dL (12.0-15.5); Immature Grans % 0.3; Lymphocytes % 31.9; Mean Corpuscular Hemoglobin 31.1 pg (27.0-33.0); Mean Corpuscular Volume 94.3 fL (80-95); Mean Platelet Volume 11.4 fL (8.0-11.0); Monocytes % 8.4; Neutrophils % 57.1; Platelet Count 220 x1000/uL (130-400); RBC Distribution Width 13.6 % (11.7-14.6); White Blood Cell Count 3.45 k/cumm (4.4-10.8)
[2019-05-08 08:26] LABS: ALT 27 U/L (12-78); AST 14 U/L (15-37); Albumin 3.6 g/dL (3.4-5.0); Alkaline Phosphatase 67 U/L (46-116); Anion Gap 10.8 mmol/L (3-11); BUN 20 mg/dL (7-18); Bilirubin, Total 0.6 mg/dL (0.2-1.0); CO2 26.2 mmol/L (21.0-32.0); CREATININE 0.76 mg/dL (0.55-1.02); Calcium 8.7 mg/dL (8.5-10.1); Chloride 107 mmol/L (98-107); Glucose 95 mg/dL (70-100); Potassium 3.4 mmol/L (3.5-5.1); Sodium 144 mmol/L (136-145); Total Protein 7.3 g/dL (6.4-8.2)
== END 2019-05-08 07:37 ==
PROVIDERS: PCP Nurse Practitioner Adult Health; Visit Provider Internal Medicine
DX: C50.911 Malignant neoplasm of unspecified site of right female breast (principal)
CPT/HCPCS: 36415; 80053; 85025

== ENCOUNTER 2019-05-11 01:32 | Outpatient (CLI) | payer OTHER, SELFPAY ==
--- NOTE | 2019-05-11 08:31 | MERGE_ITS ---
*[facility]* *[facility]* [address] [place] [address] Date of study: 05/11/2019 Transthoracic Echocardiography M-mode, complete 2D, complete spectral Doppler, and color Doppler *STUDY CONCLUSIONS* Summary: 1. Left ventricle: The cavity size was normal. Wall thickness was normal. Systolic function was normal. The estimated ejection fraction was 60-65%. Wall motion was normal; there were no regional wall motion abnormalities. Diastolic parameters were normal. Global longitudinal strain was normal, -17%. 2. Mitral valve: There was mild regurgitation. 3. Right ventricle: The cavity size was normal. Wall thickness was normal. Systolic function was normal. *PATIENT PRESENTATION* Height: 154.9cm (61in ) S/D Pressure: 177 / 90 Weight: 87.1kg (191.6lb ) BSA: 1.98m^2 Test start time: 08:30 AM. Test stop time: 09:45 AM. PERFORMING Unknown ORDERING Minor Gorman REFERRING Minor Gorman PERFORMING Nv CONSULTING [place] BUSINESS ENTERPRISE OFFICER Aleena Murcia *PROCEDURE DATA* Procedure information: This study was interpreted by [facility]. Pertinent images and digital data are archived for permanent storage and are available for subsequent review. No prior study was available for comparison. Study status: Routine. Transthoracic echocardiography. M-mode, complete 2D, complete spectral Doppler, and color Doppler. A Transthoracic Echocardiogram was performed. Scanning was performed from the parasternal, apical, subcostal, and suprasternal notch acoustic windows. Images were obtained using an [employer] SC 2000 cardiac ultrasound machine. Image quality was adequate. Study completion: The patient tolerated the procedure well. History: PMH: Breast Cancer. *CARDIAC ANATOMY* Left ventricle: The cavity size was normal. Wall thickness was normal. Systolic function was normal. The estimated ejection fraction was 60-65%. Wall motion was normal; there were no regional wall motion abnormalities. Global longitudinal strain was normal, -17%. Diastolic parameters were normal. Aortic valve: Probably trileaflet; normal thickness leaflets. Mobility was not restricted. Doppler: Transvalvular velocity was within the normal range. There was no stenosis. There was no significant regurgitation. VTI ratio of LVOT to aortic valve: 0.96. Valve area (VTI): 2.9cm^2. Indexed valve area (VTI): 1.4cm^2/m^2. Peak velocity ratio of LVOT to aortic valve: 0.88. Valve area (Vmax): 2.6cm^2. Indexed valve area (Vmax): 1.3cm^2/m^2. Mean velocity ratio of LVOT to aortic valve: 0.8. Valve area (Vmean): 2.4cm^2. Indexed valve area (Vmean): 1.2cm^2/m^2. Mean gradient (S): 3.2mm Hg. Peak gradient (S): 6mm Hg. Aorta: Aortic root: The aortic root was normal in size. Ascending aorta: The ascending aorta was normal in size. Mitral valve: Structurally normal valve. Mobility was not restricted. Doppler: Transvalvular velocity was within the normal range. There was no evidence for stenosis. There was mild regurgitation. Valve area by pressure half-time: 4.4cm^2. Indexed valve area by pressure half-time: 2.2cm^2/m^2. Left atrium: The atrium was normal in size. Right ventricle: The cavity size was normal. Wall thickness was normal. Systolic function was normal. Pulmonic valve: Doppler: Transvalvular velocity was within the normal range. There was no evidence for stenosis. There was no significant regurgitation. Peak gradient (S): 2.3mm Hg. Tricuspid valve: Structurally normal valve. Doppler: Transvalvular velocity was within the normal range. There was no evidence for stenosis. There was trivial regurgitation. Pulmonary artery: Pulmonary systolic pressure was within the normal range, in the range of 25mm Hg to 30mm Hg. Right atrium: The atrium was normal in size. Pericardium: There was no pericardial effusion. Systemic veins: Inferior vena cava: The vessel was normal in size. Measurements Left ventricle Value Reference LV ID, ED, PLAX 5.0 cm 3.5 - 6.0 LV ID, ES, PLAX 3.1 cm 2.1 - 4.0 LV PW thickness, ED, PLAX 1.0 cm --------- LV end-diastolic volume, 1-p A2C 82 ml --------- LV ejection fraction, 1-p A2C 58 % --------- LV end-diastolic volume, 1-p A4C 59 ml --------- LV ejection fraction, 1-p A4C 50 % --------- LV e', lateral 0.065 m/sec --------- LV E/e', lateral 10 --------- LV e', medial 0.057 m/sec --------- LV E/e', medial 11 --------- LV e', average 0.061 m/sec --------- LV E/e', average 10 --------- Ventricular septum Value Reference IVS thickness, ED, PLAX 1.0 cm --------- LVOT Value Reference LVOT ID, A-P 1.9 cm --------- LVOT area 3 cm^2 --------- LVOT peak velocity, S 1.08 m/sec --------- LVOT mean velocity, S 0.67 m/sec --------- LVOT VTI, S 26.0 cm --------- LVOT peak gradient, S 4.7 mm Hg --------- LVOT mean gradient, S 2.2 mm Hg --------- Stroke volume (SV), LVOT DP 77 ml --------- Stroke index (SV/bsa), LVOT DP 39 ml/m^2 --------- Aortic valve Value Reference Aortic valve peak velocity, S 1.2 m/sec --------- Aortic valve mean velocity, S 0.8 m/sec --------- Aortic valve VTI, S 27.0 cm --------- Aortic mean gradient, S 3.2 mm Hg --------- Aortic peak gradient, S 6 mm Hg --------- VTI ratio, LVOT/AV 0.96 --------- Aortic valve area, VTI 2.9 cm^2 --------- Velocity ratio, peak, LVOT/AV 0.88 --------- Aortic valve area, peak velocity 2.6 cm^2 --------- Velocity ratio, mean, LVOT/AV 0.8 --------- Aortic valve area, mean velocity 2.4 cm^2 --------- Aortic valve area/bsa, mean velocity 1.2 cm^2/m^2 --------- Aorta Value Reference Aortic root ID, ED 2.9 cm --------- Ascending aorta ID, A-P, S 3.3 cm --------- Left atrium Value Reference LA ID, A-P, ES 4.2 cm --------- LA ID/bsa, A-P 2.1 cm/m^2 <=2.2 LA volume, ES, 2-p 54 ml --------- LA volume/bsa, ES, 2-p 27 ml/m^2 --------- LA/aortic root ratio 1.44 --------- Mitral valve Value Reference Mitral E-wave peak velocity 0.62 m/sec --------- Mitral A-wave peak velocity 0.69 m/sec --------- Mitral deceleration time 173 ms 150 - 230 Mitral pressure half-time 50 ms --------- Mitral E/A ratio, peak 0.89 --------- Mitral valve area, PHT, DP 4.4 cm^2 --------- Tricuspid valve Value Reference Tricuspid regurg peak velocity 2.2 m/sec --------- Tricuspid peak RV-RA gradient 19.5 mm Hg --------- Pulmonic valve Value Reference Pulmonic peak gradient, S 2.3 mm Hg --------- Legend: (L) and (H) salome values outside specified reference range. I have personally reviewed the images and have reviewed and edited the reported findings. Electronically signed by Brian Scott 05/11/2019 10:37
== END 2019-05-11 01:52 ==
PROVIDERS: PCP Nurse Practitioner Adult Health; Visit Provider Internal Medicine
DX: C50.411 Malignant neoplasm of upper-outer quadrant of right female breast (principal); Z17.0 Estrogen receptor positive status [ER+]; Z13.6 Encounter for screening for cardiovascular disorders; I34.0 Nonrheumatic mitral (valve) insufficiency
CPT/HCPCS: 93306

== ENCOUNTER 2019-05-15 08:13 | Day surgery (SDC) | payer OTHER, SELFPAY ==
--- NOTE | 2019-05-15 06:54 | W.PM.HP.N ---
Date of service: 05/15/19 Time of Service: 09:18 Assessment and Plan (1) Invasive ductal carcinoma of breast: Current visit: No Status: Acute A\\ Breast Cancer P\\ Left or Right Subclavian vein Mediport placement Risks, benefits, complications were reviewed. Complications include but are not limited to bleeding, pain, infection, wound dehiscence, skin necrosis, port malfunction, pneumothorax, injury to the vessel and adverse reaction to the medications. Questions were entertained and answered to her satisfaction and she wished to proceed. No guarantees were given or implied. Qualifiers: Laterality: right Qualified Code(s): C50.911 - Malignant neoplasm of unspecified site of right female breast History of Present Illness Chief Complaint: Breast Cancer Narrative: Mrs. Rueda is here today to have a port-a-cath placed for chemotherapy. She was diagnosed with multifocal Breast Cancer and has undergone a Mastectomy and SLN Bx. Review of Systems Constitutional Denies fever(s) Cardiovascular Denies chest pain, Denies chest pain at rest, Denies pedal edema, Denies irregular heart rhythm, Denies claudication, Denies palpitations, Denies dyspnea and Denies dyspnea on exertion Respiratory Denies chest congestion, Denies cough, Denies dyspnea and Denies dyspnea on exertion Gastrointestinal Reports system reviewed and no additional complaints, except as docu Endocrine Denies palpitations [facility] Medical History Invasive ductal carcinoma of breast (Acute ~04/04/19) Osteoarthritis of right knee (Chronic) Breast mass, right (Acute) Glaucoma (Chronic) Essential hypertension (Chronic 02/13/16) Hyperlipidemia (Chronic 09/14/12) Subclinical hypothyroidism (Chronic 09/25/13) Surgical History History of colonoscopy (Chronic) History of mastectomy (Chronic) History of appendectomy (Resolved) History of tubal ligation (Resolved ~1974) Family History Mother Ovarian cancer Father Heart disease Alcohol abuse Coronary artery disease Brother Alcohol abuse Coronary artery disease Maternal Grandfather Alcohol abuse Coronary artery disease Son Alcohol abuse Coronary artery disease Myocardial infarction Sister Hypertension Paternal Grandmother Stroke Paternal Grandfather Stroke Other Family history of coronary artery disease Social History Smoking/Tobacco Use Status: Never Alcohol Intake: current Alcohol Intake frequency: holidays/special occasions only Drug use: Never Substance use type: does not use Adopted: No Foster care: No Household members: spouse Housing: house Number of Children: 3 Communication Needs: None 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 What is your relationship status?: Panel score (0-1 are the most socially isolated patients): 1 Seatbelt use: always Drive intox or ride w/intox river driver: No Do you feel safe at home: Yes Do you feel safe in your relationship?: Yes Meds Home Medications Medication Instructions Recorded Confirmed Type bimatoprost 0.01 % eye drops 1 drp OP QPM ml 02/09/19 05/15/19 History brimonidine-timolol 0.2 %-0.5 % 1 drp OP QAM ml 02/09/19 05/15/19 History eye drops hydrochlorothiazide 12.5 mg tablet 12.5 mg PO DAILY #90 tab-cap 02/09/19 05/15/19 Rx ibuprofen 600 mg PO TID-QID PRN #60 tab 04/05/19 05/15/19 Rx tramadol [Ultram] 50 mg PO Q4H PRN PRN #14 tab 04/05/19 05/15/19 Rx multivitamin 1 cap PO DAILY 05/10/19 05/15/19 History bisacodyl 5 mg tablet,delayed 5 mg PO ONCE #4 tab 05/14/19 05/14/19 Rx release polyethylene glycol 3350 17 238 g PO ONCE #238 gm 05/14/19 05/14/19 Rx gram/dose oral powder Allergies Allergy/AdvReac Type Severity Reaction Status Date / Time No Known Allergies Allergy Verified 05/15/19 08:31 Exam Const General: cooperative and comfortable Orientation: alert and oriented x3 HENMT Head: normocephalic and atraumatic Resp Effort & Inspection: normal respiratory effort Auscultation: clear to auscultation bilaterally Cardio Rate: regular rate Rhythm: regular rhythm Heart Sounds: no gallops, no murmurs and no rubs GI Inspection: normal to inspection Palpation: soft, no hepatosplenomegaly and nontender Auscultation: normal bowel sounds
--- NOTE | 2019-05-15 06:59 | HPE_ITS ---
Date of service: 05/15/19 Time of Service: 09:18 Assessment and Plan (1) Invasive ductal carcinoma of breast: Current visit: No Status: Acute A\\ Breast Cancer P\\ Left or Right Subclavian vein Mediport placement Risks, benefits, complications were reviewed. Complications include but are not limited to bleeding, pain, infection, wound dehiscence, skin necrosis, port malfunction, pneumothorax, injury to the vessel and adverse reaction to the medications. Questions were entertained and answered to her satisfaction and she wished to proceed. No guarantees were given or implied. Qualifiers: Laterality: right Qualified Code(s): C50.911 - Malignant neoplasm of unspecified site of right female breast History of Present Illness Chief Complaint: Breast Cancer Narrative: Mrs. Rueda is here today to have a port-a-cath placed for chemotherapy. She was diagnosed with multifocal Breast Cancer and has undergone a Mastectomy and SLN Bx. Review of Systems Constitutional Denies fever(s) Cardiovascular Denies chest pain, Denies chest pain at rest, Denies pedal edema, Denies irregular heart rhythm, Denies claudication, Denies palpitations, Denies dyspnea and Denies dyspnea on exertion Respiratory Denies chest congestion, Denies cough, Denies dyspnea and Denies dyspnea on exertion Gastrointestinal Reports system reviewed and no additional complaints, except as docu Endocrine Denies palpitations [facility] Medical History Invasive ductal carcinoma of breast (Acute ~04/04/19) Osteoarthritis of right knee (Chronic) Breast mass, right (Acute) Glaucoma (Chronic) Essential hypertension (Chronic 02/13/16) Hyperlipidemia (Chronic 09/14/12) Subclinical hypothyroidism (Chronic 09/25/13) Surgical History History of colonoscopy (Chronic) History of mastectomy (Chronic) History of appendectomy (Resolved) History of tubal ligation (Resolved ~1974) Family History Mother Ovarian cancer Father Heart disease Alcohol abuse Coronary artery disease Brother Alcohol abuse Coronary artery disease Maternal Grandfather Alcohol abuse Coronary artery disease Son Alcohol abuse Coronary artery disease Myocardial infarction Sister Hypertension Paternal Grandmother Stroke Paternal Grandfather Stroke Other Family history of coronary artery disease Social History Smoking/Tobacco Use Status: Never Alcohol Intake: current Alcohol Intake frequency: holidays/special occasions only Drug use: Never Substance use type: does not use Adopted: No Foster care: No Household members: spouse Housing: house Number of Children: 3 Communication Needs: None 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, [employer] What is your relationship status?: Panel score (0-1 are the most socially isolated patients): 1 Seatbelt use: always Drive intox or ride w/intox route relief driver: No Do you feel safe at home: Yes Do you feel safe in your relationship?: Yes Meds Home Medications Medication Instructions Recorded Confirmed Type bimatoprost 0.01 % eye drops 1 drp OP QPM ml 02/09/19 05/15/19 History brimonidine-timolol 0.2 %-0.5 % 1 drp OP QAM ml 02/09/19 05/15/19 History eye drops hydrochlorothiazide 12.5 mg tablet 12.5 mg PO DAILY #90 tab-cap 02/09/19 05/15/19 Rx ibuprofen 600 mg PO TID-QID PRN #60 tab 04/05/19 05/15/19 Rx tramadol [Ultram] 50 mg PO Q4H PRN PRN #14 tab 04/05/19 05/15/19 Rx multivitamin 1 cap PO DAILY 05/10/19 05/15/19 History bisacodyl 5 mg tablet,delayed 5 mg PO ONCE #4 tab 05/14/19 05/14/19 Rx release polyethylene glycol 3350 17 238 g PO ONCE #238 gm 05/14/19 05/14/19 Rx gram/dose oral powder Allergies Allergy/AdvReac Type Severity Reaction Status Date / Time No Known Allergies Allergy Verified 05/15/19 08:31 Exam Const General: cooperative and comfortable Orientation: alert and oriented x3 HENMT Head: normocephalic and atraumatic Resp Effort & Inspection: normal respiratory effort Auscultation: clear to auscultation bilaterally Cardio Rate: regular rate Rhythm: regular rhythm Heart Sounds: no gallops, no murmurs and no rubs GI Inspection: normal to inspection Palpation: soft, no hepatosplenomegaly and nontender Auscultation: normal bowel sounds
--- NOTE | 2019-05-15 06:59 | W.PM.OP ---
Date of service: 05/15/19 Time of Service: 10:27 Operative Note DATE OF PROCEDURE: 05/15/19 PRE-OP DIAGNOSIS: Right Invasive Breast Cancer POST-OP DIAGNOSIS: same PROCEDURE: Mediport Placement left subclavian vein SURGEON: Dot Hull TRAILHEAD CONSTRUCTION WORKER: Izabela Cardona ANESTHESIA: MAC and local ESTIMATED BLOOD LOSS: 10 PATHOLOGY: none sent COMPLICATIONS: None Patient was transported to: same day Patient's condition: stable Implants: Power Port REF- [id number] LOT- [id number] Indications: Mrs. Rueda is here today for a Mediport placement so she can start chemotherapy treatments for her invasive breast cancer. Risks, benefits, complications of the procedure were reviewed with her and she wished to proceed. No guarantees were given or implied. Procedure Description: The patient was taken back to the Operating room and placed in a supine position with her left arm tucked. Monitors were applied and she was sedated. Once sedated and comfortable her left chest wall was prepped and draped in a standard fashion. At this point a time out was done. The patients name, , surgery to be done and site, IV antibiotic given, DVT prophilaxis, and allergies were reviewed. Fire risk was assessed. Next 2% lidocaine mixed with half percent Marcaine with epi was injected around the clavicle on the left side as well as into the subcutaneous tissue about 1 inch below the clavicle. A power port kit was opened and using the large 18-gauge needle the subclavian vein was found and venous blood was easily aspirated. The syringe was removed and the guidewire was placed without any difficulty into the subclavian vein. The needle was removed. Fluoroscopy was then done which confirmed the placement of the guidewire. A small incision was made in the skin were the guidewire entered. An incision was made about 1 inch below the clavicle with a 15 blade. Using cautery a pocket was created for the port. Using the tunneler the catheter was tunneled from the newly created pocket to the guidewire. The dilator and sheath were then placed over the guidewire into the subclavian vein. The dilator and guidewire were removed. The catheter was then advanced through the sheath into the subclavian vein. While holding the catheter in place at the skin the sheath was removed. Fluoroscopy was then used again and the catheter was noted to be within the atrium and so it was pulled up until it was just above the atrium. The catheter was then cut to the right length and attached to the port. The port was placed into the pocket and fit snugly. The port was flushed with heparin. The skin was closed using 4-0 Vicryl. The skin was cleaned and dried and skin affix was applied to the port site as well as to the small stab incision underneath the clavicle. The patient was woken up and taken back to same day surgery in stable condition. There were no immediate complications. Sponge, instrument, and needle counts were correct at the end of the case. A stat chest x-ray was ordered and done in same-day surgery. Results are pending at this time.
--- NOTE | 2019-05-15 07:02 | ROE_ITS ---
Date of service: 05/15/19 Time of Service: 10:27 Operative Note DATE OF PROCEDURE: 05/15/19 PRE-OP DIAGNOSIS: Right Invasive Breast Cancer POST-OP DIAGNOSIS: same PROCEDURE: Mediport Placement left subclavian vein SURGEON: Dot Hull HEEL TOP LIFT SPLITTER: Izabela Cardona ANESTHESIA: MAC and local ESTIMATED BLOOD LOSS: 10 PATHOLOGY: none sent COMPLICATIONS: None Patient was transported to: same day Patient's condition: stable Implants: Power Port REF- [id number] LOT- [id number] Indications: Mrs. Rueda is here today for a Mediport placement so she can start chemotherapy treatments for her invasive breast cancer. Risks, benefits, complications of the procedure were reviewed with her and she wished to proceed. No guarantees were given or implied. Procedure Description: The patient was taken back to the Operating room and placed in a supine position with her left arm tucked. Monitors were applied and she was sedated. Once sedated and comfortable her left chest wall was prepped and draped in a standard fashion. At this point a time out was done. The patients name, , surgery to be done and site, IV antibiotic given, DVT prophilaxis, and allergies were reviewed. Fire risk was assessed. Next 2% lidocaine mixed with half percent Marcaine with epi was injected around the clavicle on the left side as well as into the subcutaneous tissue about 1 inch below the clavicle. A power port kit was opened and using the large 18-gauge needle the subclavian vein was found and venous blood was easily aspirated. The syringe was removed and the guidewire was placed without any difficulty into the subclavian vein. The needle was removed. Fluoroscopy was then done which confirmed the placement of the guidewire. A small incision was made in the skin were the guidewire entered. An incision was made about 1 inch below the clavicle with a 15 blade. Using cautery a pocket was created for the port. Using the tunneler the catheter was tunneled from the newly created pocket to the guidewire. The dilator and sheath were then placed over the guidewire into the subclavian vein. The dilator and guidewire were removed. The catheter was then advanced through the sheath into the subclavian vein. While holding the catheter in place at the skin the sheath was removed. Fluor oscopy was then used again and the catheter was noted to be within the atrium and so it was pulled up until it was just above the atrium. The catheter was then cut to the right length and attached to the port. The port was placed into the pocket and fit snugly. The port was flushed with heparin. The skin was closed using 4-0 Vicryl. The skin was cleaned and dried and skin affix was applied to the port site as well as to the small stab incision underneath the clavicle. The patient was woken up and taken back to same day surgery in stable condition. There were no immediate complications. Sponge, instrument, and needle counts were correct at the end of the case. A stat chest x-ray was ordered and done in same-day surgery. Results are pending at this time.
--- NOTE | 2019-05-15 07:02 | W.PM.DSUDISC ---
Discharge Plan Disposition Patient Disposition: HOME Condition: Good Discharge Details Reason For Visit: Mediport Placement Attending Provider: Dot Hull Primary Care Provider: Mary Chinchilla Home Meds and New Rx's Prescriptions: Continued hydrochlorothiazide 12.5 mg tablet 12.5 mg PO DAILY Qty: 90 RF: 3 Lumigan 0.01 % drops 1 drp OP QPM RF: 0 Combigan 0.2-0.5 % drops 1 drp OP QAM RF: 0 polyethylene glycol 3350 17 gram/dose powder 238 g PO ONCE Qty: 238 RF: 0 bisacodyl [Dulcolax (bisacodyl)] 5 mg tablet,delayed release (DR/EC) 5 mg PO ONCE Qty: 4 RF: 0 tramadol [Ultram] 50 mg tablet 50 mg PO Q4H PRN PRN (Reason: pain) Qty: 14 RF: 0 ibuprofen 600 mg tablet 600 mg PO TID-QID PRN (Reason: pain (s) Qty: 60 RF: 4 multivitamin Capsule 1 cap PO DAILY RF: 0 Discharge Instructions Instructions: Tunneled Central Lines in Adult (DC) Additional Instructions: Activity at Home after surgery: 1. Make sure you walk outside at least 4 times per day 2. You should be able to climb a flight of stairs 3. No driving while in pain or taking pain medications 4. No strenuous activity or heavy lifting for 2 weeks. Dont leave your left arm above your head for more then a few minutes at a time. Diet, Nutrition, & wound healin. Avoid alcohol until after you are recovered from your surgery 2. Make sure to eat plenty of lean protein (meat, fish, eggs, cottage cheese, beans) 3. Eat a variety of fruits and vegetables. Eat plenty of high fiber foods to avoid constipation. 4. Drink plenty of liquids to stay hydrated and avoid constipation Pain Medications: 1. Alternate Tylenol 1000 mg and Ibuprofen 600 mg every 3 hours For Constipation: 1. Take Milk of Magnesia or MiraLax as needed for constipation Other: 1. You may shower daily. Do not scrub the incisions 2. Do not soak the incisions for 1 week 3. You may alternate ice and heat as needed for pain and swelling Wound Care: 1. Keep the incisions clean and dry Please call our office if you develop: 1. Fevers >101.5 2. Nausea or Vomiting 3. Worsening pain 4. Redness and thick discharge from the wounds If after hours please call the Hospital at and ask to speak to the on-call surgeon Stand Alone Forms: DSU Post op Instructions, Jose Lama (DSU) Activity:: Activity as Tolerated Diet:: As Tolerated Discharge Orders Discharge Orders: Discharge Order (Routine); Ordered 05/15/19 Ordered By: Dot Hull DS: Diagnosis Discharge Diagnosis (1) Invasive ductal carcinoma of breast: Status: Acute (2) Encounter for central line placement: Status: Acute
[2019-05-15 08:22] VITALS: BP 151/86; PULSE 75; RESP 16; TEMP 36.4; O2SAT 97
[2019-05-15] MEDS: Lactated Ringers 1,000 ML 80 ML IV (08:55)
--- NOTE | 2019-05-15 08:58 | DI.RAD_ITS ---
SYMPTOM/DIAGNOSIS: BREAST CANCER. C-ARM FLUOROSCOPY Fluoroscopy Time: 41.1sec, 5.04mgy Fluoroscopy was provided for Dr. Hull for guidance of placing a port. Please see procedure note for details.
--- NOTE | 2019-05-15 10:00 | DI.RAD_ITS ---
SYMPTOM/DIAGNOSIS: CENTRAL LINE PORTABLE CHEST: The patient is status post placement of a port via the left subclavian. The tip lies at the junction with the SVC. No pneumothorax is seen. The heart size is normal. IMPRESSION: Satisfactory port placement. No evidence of pneumothorax.
[2019-05-15] MEDS: ceFAZolin 2 GM/50 ML BAG IVPB (10:11)
[2019-05-15] MEDS: Lidocaine 2% Pres-Free 5 ML VIAL (10:33)
[2019-05-15] MEDS: Normal Saline 50 ML 15 ML (10:47)
[2019-05-15] MEDS: Heparin 500 UNITS/5 ML SYRINGE (10:47)
[2019-05-15 11:40] VITALS: BP 161/99; PULSE 82; RESP 16; TEMP 36.2; O2SAT 96
== END 2019-05-15 11:51 | disposition home or self-care (01) ==
LOC: SUR 08:14
PROVIDERS: PCP Nurse Practitioner Adult Health; Visit Provider Surgery
PROC: (CPT 36561; principal; 2019-05-15 10:45)
DX: C50.411 Malignant neoplasm of upper-outer quadrant of right female breast (principal); C77.3 Secondary and unspecified malignant neoplasm of axilla and upper limb lymph nodes; Z17.0 Estrogen receptor positive status [ER+]; Z45.2 Encounter for adjustment and management of vascular access device
CPT/HCPCS: 36561; 77001; 71045; NC; C1788; J0690

== ENCOUNTER 2019-05-28 09:59 | Day surgery (SDC) | payer OTHER, SELFPAY ==
--- NOTE | 2019-05-28 06:56 | W.COLOREPORT ---
Date of service: 05/28/19 Time of Service: 10:36 Colonoscopy Report Date of procedure: 05/28/19 Pre-op diagnosis general: Colon Cancer Screening Post-op diagnosis procedure note: same Procedure: Colonoscopy Surgeon: Dot Hull Anesthesia proc note operative: other (General/ ASA 3/ Maryanne Bailon, FREDERICK) Estimated blood loss (mL): 0 Pathology: none sent Complications: None Disposition: same day Indications: Mrs. Rueda was seen in the office for a screening colonoscopy. Risks, benefits and complications have been reviewed. Complications include but are not limited to bleeding, pain, perforation, missed small lesion/polyp, sore throat, aspiration and adverse reaction to the medications. Questions were entertained and answered to their satisfaction and they wished to proceed. No guarantees were given or implied. Prep: Miralax/Dulcolax Procedure Start Time: 10:36 Procedure End Time: 10:59 Retraction Time: 17 minutes Findings: Normal colon Procedure Description: After informed consent was obtained the patient was taken to the procedure room and placed in a left decubitous position. Monitors were applied and a time out was done. The patients name, date of , procedure, allergies to medications and metal in their body was reviewed. The patient was then sedated. Once sedated and comfortable a rectal exam was done. External exam was normal. Internal exam revealed a normal sphincter tone and no palpable masses. The scope was then introduced and retro-flexed. No internal hemorrhoids were identified. There were no polyps or masses identified on retro-flexion The scope was then advanced to the cecum with no difficulty. The TI and appendiceal orifice were identified. The prep was good. The scope was then slowly retracted over 17 minutes back into the rectum. There were no polyps and no diverticula. The scope was removed and the patient was woken up and taken back to Same day surgery in stable condition. The patient tolerated the procedure well and there were no immediate complications. Follow up: The patient should follow up in 10 years unless they develop changes in bowel habits or other new gastrointestinal complaints.
--- NOTE | 2019-05-28 06:58 | W.PM.DSUDISC ---
Discharge Plan Disposition Patient Disposition: HOME Condition: Good Discharge Details Reason For Visit: Colon Cancer Screening Attending Provider: Dot Hull Primary Care Provider: Mary Chinchilla Home Meds and New Rx's Prescriptions: Continued hydrochlorothiazide 12.5 mg tablet 12.5 mg PO DAILY Qty: 90 RF: 3 Lumigan 0.01 % drops 1 drp OP QPM RF: 0 Combigan 0.2-0.5 % drops 1 drp OP QAM RF: 0 tramadol [Ultram] 50 mg tablet 50 mg PO Q4H PRN PRN (Reason: pain) Qty: 14 RF: 0 ibuprofen 600 mg tablet 600 mg PO TID-QID PRN (Reason: pain (s) Qty: 60 RF: 4 multivitamin Capsule 1 cap PO DAILY RF: 0 Discontinued polyethylene glycol 3350 17 gram/dose powder 238 g PO ONCE Qty: 238 RF: 0 bisacodyl [Dulcolax (bisacodyl)] 5 mg tablet,delayed release (DR/EC) 5 mg PO ONCE Qty: 4 RF: 0 Discharge Instructions Instructions: Colonoscopy (GEN) Additional Instructions: Findings: Normal colon Follow up: 10 years Please call if you develop: fevers >101.5 Nausea or Vomiting Abdominal pain that is not transient DAY SURGERY UNIT POST COLONOSCOPY INSTRUCTIONS 1. Because there will be medication in your system for the next 24 hours, you may feel a little sleepy. Your coordination will be affected. Therefore: a. Do not drive or operate dangerous equipment for 24 hours. b. Do not drink alcohol beverages for 24 hours (not even beer). c. Plan to go home and rest for the day. 2. Generally there are no restrictions on your activity after a day or so has gone by, but you may feel a bit fatigued for a few days. 3 After you arrive home you may have a light meal and return to a normal diet as you can tolerate it without feeling sick to your stomach. 4. After surgery, you may feel pain or discomfort. This should be only transient, but if it persists please contact your doctor. 5. If there are any questions regarding the findings of your procedure, please feel free to contact your doctor. 6. If you are unable to contact your doctor with a problem, contact the hospital at [phone]. 7. Continue all your regular medications unless directed otherwise. I understand the above instructions and have no questions. Signature of Patient or Responsible Adult Escort Date/Time Name of Responsible Adult Escort Signature of Nurse Date/Time Activity:: Activity as Tolerated Diet:: As Tolerated Discharge Orders Discharge Orders: Discharge Order (Routine); Ordered 05/28/19 Ordered By: Dot Hull DS: Diagnosis Discharge Diagnosis (1) S/P colonoscopy: Status: Acute
[2019-05-28 10:06] VITALS: BP 143/85; PULSE 77; RESP 16; TEMP 36.5; O2SAT 99
[2019-05-28] MEDS: Normal Saline Flush 10 ML SYR IV (10:39)
[2019-05-28] MEDS: Heparin 500 UNITS/5 ML SYRINGE IVP (11:29)
[2019-05-28] MEDS: Lactated Ringers 1,000 ML 80 ML IV (11:30)
== END 2019-05-28 13:15 | disposition home or self-care (01) ==
LOC: SUR 10:00
PROVIDERS: PCP Nurse Practitioner Adult Health; Visit Provider Surgery
PROC: 0DJD8ZZ Inspection of Lower Intestinal Tract, Via Natural or Artificial Opening Endoscopic (ICD-10-PCS; CPT 45378; principal; 2019-05-28 11:30)
DX: Z12.11 Encounter for screening for malignant neoplasm of colon (principal); C50.911 Malignant neoplasm of unspecified site of right female breast; I10 Essential (primary) hypertension
CPT/HCPCS: 45378

== ENCOUNTER 2019-06-12 01:22 | Outpatient (RCR) | payer OTHER, SELFPAY ==
[2019-05-16 09:01] LABS: Abs Immature Grans 0.01 k/cumm (0.0-0.09); Absolute Basophil Count 0.03 k/cumm (0.0-0.2); Absolute Eosinophil Count 0.06 k/cumm (0.0-0.7); Absolute Lymphocyte Count 1.36 k/cumm (1.2-3.4); Absolute Monocyte Count 0.61 k/cumm (0.11-0.7); Absolute Neutrophil Count 4.38 k/cumm (1.2-6.7); Basophils % 0.5; Eosinophils % 0.9; HCT 42.4 % (36.0-46.0); HGB 13.9 g/dL (12.0-15.5); Immature Grans % 0.2; Lymphocytes % 21.1; Mean Corp. HGB Concentration 32.8 g/dL (32.0-36.0); Mean Corpuscular Hemoglobin 31.2 pg (27.0-33.0); Mean Corpuscular Volume 95.1 fL (80-95); Mean Platelet Volume 11.5 fL (8.0-11.0); Monocytes % 9.5; Neutrophils % 67.8; Platelet Count 215 x1000/uL (130-400); RBC 4.46 m/cumm (4.00-5.20); RBC Distribution Width 13.4 % (11.7-14.6); White Blood Cell Count 6.45 k/cumm (4.4-10.8)
[2019-05-16 09:18] LABS: ALT 19 U/L (12-78); AST 9 U/L (15-37); Albumin 3.5 g/dL (3.4-5.0); Alkaline Phosphatase 70 U/L (46-116); BUN 19 mg/dL (7-18); Bilirubin, Total 0.5 mg/dL (0.2-1.0); CREATININE 0.81 mg/dL (0.55-1.02); Calcium 8.6 mg/dL (8.5-10.1); Chloride 107 mmol/L (98-107); Glucose 94 mg/dL (70-100); Potassium 3.8 mmol/L (3.5-5.1); Sodium 144 mmol/L (136-145); Total Protein 7.1 g/dL (6.4-8.2)
[2019-05-16] MEDS: Normal Saline Flush 10 ML SYR IVP (11:00)
[2019-05-29] MEDS: Normal Saline Flush 10 ML SYR IVP (10:00)
[2019-05-29 10:11] LABS: HCT 38.5 % (36.0-46.0); HGB 12.8 g/dL (12.0-15.5); Mean Corp. HGB Concentration 33.2 g/dL (32.0-36.0); Mean Corpuscular Hemoglobin 31.2 pg (27.0-33.0); Mean Corpuscular Volume 93.9 fL (80-95); Mean Platelet Volume 10.8 fL (8.0-11.0); Platelet Count 191 x1000/uL (130-400); RBC Distribution Width 12.9 % (11.7-14.6); White Blood Cell Count 7.65 k/cumm (4.4-10.8)
[2019-05-29 10:32] LABS: ALT 24 U/L (12-78); AST 11 U/L (15-37); Albumin 3.6 g/dL (3.4-5.0); Alkaline Phosphatase 96 U/L (46-116); Anion Gap 11.8 mmol/L (3-11); BUN 18 mg/dL (7-18); Bilirubin, Total 0.2 mg/dL (0.2-1.0); CO2 26.2 mmol/L (21.0-32.0); CREATININE 0.72 mg/dL (0.55-1.02); Chloride 105 mmol/L (98-107); Glucose 107 mg/dL (70-100); Sodium 143 mmol/L (136-145); Total Protein 7.3 g/dL (6.4-8.2)
[2019-05-29 10:37] LABS: Absolute Basophil Count 0.08 k/cumm (0.0-0.2); Absolute Lymphocyte Count 1.53 k/cumm (1.2-3.4); Absolute Monocyte Count 0.69 k/cumm (0.11-0.7); Absolute Neutrophil Count 5.05 k/cumm (1.2-6.7); Diff Comment Manual Differential; RBC Morphology Normal
[2019-05-29 10:42] LABS: Potassium 2.9 mmol/L (3.5-5.1)
[2019-06-12 10:08] LABS: HCT 33.8 % (36.0-46.0); HGB 11.3 g/dL (12.0-15.5); Mean Corp. HGB Concentration 33.4 g/dL (32.0-36.0); Mean Corpuscular Hemoglobin 31.3 pg (27.0-33.0); Mean Corpuscular Volume 93.6 fL (80-95); Mean Platelet Volume 10.2 fL (8.0-11.0); Platelet Count 242 x1000/uL (130-400); RBC 3.61 m/cumm (4.00-5.20); RBC Distribution Width 13.1 % (11.7-14.6); White Blood Cell Count 10.52 k/cumm (4.4-10.8)
[2019-06-12] MEDS: Normal Saline Flush 10 ML SYR IVP (10:16)
[2019-06-12 10:33] LABS: ALT 18 U/L (12-78); AST 13 U/L (15-37); Absolute Lymphocyte Count 0.84 k/cumm (1.2-3.4); Absolute Monocyte Count 0.84 k/cumm (0.11-0.7); Absolute Neutrophil Count 8.42 k/cumm (1.2-6.7); Albumin 3.1 g/dL (3.4-5.0); Alkaline Phosphatase 86 U/L (46-116); Anion Gap 11.4 mmol/L (3-11); BUN 17 mg/dL (7-18); Bilirubin, Total 0.2 mg/dL (0.2-1.0); CO2 23.6 mmol/L (21.0-32.0); CREATININE 0.69 mg/dL (0.55-1.02); Calcium 8.5 mg/dL (8.5-10.1); Chloride 106 mmol/L (98-107); Diff Comment Manual Differential; Glucose 95 mg/dL (70-100); Polychromasia Present; Potassium 3.4 mmol/L (3.5-5.1); Sodium 141 mmol/L (136-145); Total Protein 6.9 g/dL (6.4-8.2)
== END 2019-06-13 23:59 | disposition home or self-care (01) ==
LOC: INF 01:22
PROVIDERS: PCP Nurse Practitioner Adult Health; Visit Provider Internal Medicine
DX: C50.911 Malignant neoplasm of unspecified site of right female breast (principal); Z45.2 Encounter for adjustment and management of vascular access device
CPT/HCPCS: 36415; 36591; 80053; 96523; 85025

== ENCOUNTER 2019-07-03 01:54 | Outpatient (RCR) | payer OTHER, SELFPAY ==
[2019-06-26] MEDS: Normal Saline Flush 10 ML SYR IVP (10:00)
[2019-06-26 10:11] LABS: HCT 32.6 % (36.0-46.0); HGB 10.8 g/dL (12.0-15.5); Mean Corp. HGB Concentration 33.1 g/dL (32.0-36.0); Mean Corpuscular Hemoglobin 30.8 pg (27.0-33.0); Mean Corpuscular Volume 92.9 fL (80-95); Platelet Count 209 x1000/uL (130-400); RBC 3.51 m/cumm (4.00-5.20); RBC Distribution Width 14.1 % (11.7-14.6)
[2019-06-26 10:33] LABS: ALT 17 U/L (12-78); AST 5 U/L (15-37); Albumin 3.2 g/dL (3.4-5.0); Alkaline Phosphatase 62 U/L (46-116); Anion Gap 11.2 mmol/L (3-11); BUN 21 mg/dL (7-18); Bilirubin, Total 0.2 mg/dL (0.2-1.0); CO2 23.8 mmol/L (21.0-32.0); CREATININE 0.73 mg/dL (0.55-1.02); Calcium 8.5 mg/dL (8.5-10.1); Chloride 108 mmol/L (98-107); Glucose 99 mg/dL (70-100); Potassium 3.7 mmol/L (3.5-5.1); Sodium 143 mmol/L (136-145); Total Protein 6.6 g/dL (6.4-8.2)
[2019-06-26 10:42] LABS: White Blood Cell Count 0.94 k/cumm (4.4-10.8)
[2019-06-26 10:43] LABS: Absolute Basophil Count 0.04 k/cumm (0.0-0.2); Absolute Eosinophil Count 0.02 k/cumm (0.0-0.7); Absolute Lymphocyte Count 0.36 k/cumm (1.2-3.4); Absolute Monocyte Count 0.28 k/cumm (0.11-0.7); Absolute Neutrophil Count 0.24 k/cumm (1.2-6.7)
[2019-06-26 10:45] LABS: Diff Comment Manual Differential; Polychromasia Present
[2019-07-03] MEDS: Normal Saline Flush 10 ML SYR IVP (08:21)
[2019-07-03 08:30] LABS: Abs Immature Grans 0.08 k/cumm (0.0-0.09); Absolute Eosinophil Count 0.04 k/cumm (0.0-0.7); Absolute Lymphocyte Count 1.09 k/cumm (1.2-3.4); Absolute Monocyte Count 1.06 k/cumm (0.11-0.7); Absolute Neutrophil Count 2.76 k/cumm (1.2-6.7); Basophils % 1.9; Eosinophils % 0.8; HCT 36.4 % (36.0-46.0); HGB 11.8 g/dL (12.0-15.5); Immature Grans % 1.6; Lymphocytes % 21.2; Mean Corp. HGB Concentration 32.4 g/dL (32.0-36.0); Mean Corpuscular Hemoglobin 30.6 pg (27.0-33.0); Mean Corpuscular Volume 94.5 fL (80-95); Mean Platelet Volume 9.8 fL (8.0-11.0); Monocytes % 20.7; Neutrophils % 53.8; Platelet Count 393 x1000/uL (130-400); RBC 3.85 m/cumm (4.00-5.20); RBC Distribution Width 15.3 % (11.7-14.6); White Blood Cell Count 5.13 k/cumm (4.4-10.8)
[2019-07-03 08:50] LABS: ALT 27 U/L (12-78); AST 19 U/L (15-37); Albumin 3.3 g/dL (3.4-5.0); Alkaline Phosphatase 59 U/L (46-116); Anion Gap 11.6 mmol/L (3-11); BUN 20 mg/dL (7-18); Bilirubin, Total 0.2 mg/dL (0.2-1.0); CO2 25.4 mmol/L (21.0-32.0); CREATININE 0.87 mg/dL (0.55-1.02); Calcium 8.6 mg/dL (8.5-10.1); Chloride 107 mmol/L (98-107); Glucose 94 mg/dL (70-100); Potassium 3.6 mmol/L (3.5-5.1); Sodium 144 mmol/L (136-145); Total Protein 6.9 g/dL (6.4-8.2)
== END 2019-07-14 23:59 | disposition home or self-care (01) ==
LOC: INF 01:54
PROVIDERS: PCP Nurse Practitioner Adult Health; Visit Provider Internal Medicine
DX: C50.911 Malignant neoplasm of unspecified site of right female breast (principal); Z45.2 Encounter for adjustment and management of vascular access device
CPT/HCPCS: 36415; 36591; 80053; 96523; 85025

== ENCOUNTER 2019-08-07 01:51 | Outpatient (RCR) | payer OTHER, SELFPAY ==
[2019-07-17] MEDS: Normal Saline Flush 10 ML SYR IVP (08:16)
[2019-07-17 08:22] LABS: Absolute Eosinophil Count 0.05 k/cumm (0.0-0.7); Absolute Neutrophil Count 3.28 k/cumm (1.2-6.7); HCT 33.5 % (36.0-46.0); HGB 10.8 g/dL (12.0-15.5); Mean Corp. HGB Concentration 32.2 g/dL (32.0-36.0); Mean Corpuscular Hemoglobin 30.4 pg (27.0-33.0); Mean Corpuscular Volume 94.4 fL (80-95); Mean Platelet Volume 10.3 fL (8.0-11.0); Platelet Count 221 x1000/uL (130-400); RBC 3.55 m/cumm (4.00-5.20); RBC Distribution Width 15.8 % (11.7-14.6); White Blood Cell Count 4.89 k/cumm (4.4-10.8)
[2019-07-17 08:31] LABS: ALT 19 U/L (14-59); AST 13 U/L (15-37); Albumin 3.3 g/dL (3.4-5.0); Alkaline Phosphatase 82 U/L (46-116); Anion Gap 8.9 mmol/L (3-11); BUN 22 mg/dL (7-18); Bilirubin, Total 0.3 mg/dL (0.2-1.0); CO2 25.1 mmol/L (21.0-32.0); CREATININE 0.72 mg/dL (0.55-1.02); Calcium 8.5 mg/dL (8.5-10.1); Chloride 106 mmol/L (98-107); Glucose 98 mg/dL (70-100); Potassium 3.6 mmol/L (3.5-5.1); Sodium 140 mmol/L (136-145); Total Protein 6.7 g/dL (6.4-8.2)
[2019-07-17 08:44] LABS: Absolute Basophil Count 0.05 k/cumm (0.0-0.2); Absolute Lymphocyte Count 0.73 k/cumm (1.2-3.4); Absolute Monocyte Count 0.78 k/cumm (0.11-0.7); Atypical Lymphocytes % 2; Diff Comment Manual Differential; RBC Morphology Normal
[2019-07-24] MEDS: Normal Saline Flush 10 ML SYR IVP (08:40)
[2019-07-24 08:52] LABS: Abs Immature Grans 0.03 k/cumm (0.0-0.09); Absolute Basophil Count 0.05 k/cumm (0.0-0.2); Absolute Eosinophil Count 0.01 k/cumm (0.0-0.7); Absolute Lymphocyte Count 0.49 k/cumm (1.2-3.4); Absolute Monocyte Count 0.28 k/cumm (0.11-0.7); Absolute Neutrophil Count 2.69 k/cumm (1.2-6.7); Basophils % 1.4; Eosinophils % 0.3; HCT 34.1 % (36.0-46.0); HGB 11.1 g/dL (12.0-15.5); Immature Grans % 0.8; Lymphocytes % 13.8; Mean Corp. HGB Concentration 32.6 g/dL (32.0-36.0); Mean Corpuscular Hemoglobin 30.7 pg (27.0-33.0); Mean Corpuscular Volume 94.5 fL (80-95); Mean Platelet Volume 10.1 fL (8.0-11.0); Monocytes % 7.9; Neutrophils % 75.8; Platelet Count 361 x1000/uL (130-400); RBC 3.61 m/cumm (4.00-5.20); RBC Distribution Width 15.8 % (11.7-14.6); White Blood Cell Count 3.55 k/cumm (4.4-10.8)
[2019-07-24 09:13] LABS: ALT 29 U/L (14-59); AST 18 U/L (15-37); Albumin 3.5 g/dL (3.4-5.0); Alkaline Phosphatase 66 U/L (46-116); Anion Gap 9.9 mmol/L (3-11); BUN 23 mg/dL (7-18); Bilirubin, Total 0.4 mg/dL (0.2-1.0); CO2 25.1 mmol/L (21.0-32.0); CREATININE 0.81 mg/dL (0.55-1.02); Calcium 8.2 mg/dL (8.5-10.1); Chloride 107 mmol/L (98-107); Glucose 93 mg/dL (70-100); Potassium 3.5 mmol/L (3.5-5.1); Sodium 142 mmol/L (136-145)
[2019-07-31 09:34] LABS: Abs Immature Grans 0.01 k/cumm (0.0-0.09); Absolute Basophil Count 0.06 k/cumm (0.0-0.2); Absolute Eosinophil Count 0.01 k/cumm (0.0-0.7); Absolute Lymphocyte Count 0.49 k/cumm (1.2-3.4); Absolute Monocyte Count 0.26 k/cumm (0.11-0.7); Absolute Neutrophil Count 1.47 k/cumm (1.2-6.7); Basophils % 2.6; Eosinophils % 0.4; HGB 10.1 g/dL (12.0-15.5); Immature Grans % 0.4; Lymphocytes % 21.3; Mean Corp. HGB Concentration 32.6 g/dL (32.0-36.0); Mean Corpuscular Hemoglobin 31.2 pg (27.0-33.0); Mean Corpuscular Volume 95.7 fL (80-95); Mean Platelet Volume 10.7 fL (8.0-11.0); Monocytes % 11.3; RBC 3.24 m/cumm (4.00-5.20); RBC Distribution Width 16.7 % (11.7-14.6)
[2019-07-31 09:46] LABS: ALT 71 U/L (14-59); AST 34 U/L (15-37); Albumin 3.3 g/dL (3.4-5.0); Alkaline Phosphatase 58 U/L (46-116); Anion Gap 10.2 mmol/L (3-11); BUN 16 mg/dL (7-18); Bilirubin, Total 0.4 mg/dL (0.2-1.0); CO2 23.8 mmol/L (21.0-32.0); Calcium 8.3 mg/dL (8.5-10.1); Chloride 108 mmol/L (98-107); Glucose 93 mg/dL (70-100); Potassium 3.9 mmol/L (3.5-5.1); Sodium 142 mmol/L (136-145); Total Protein 6.5 g/dL (6.4-8.2)
[2019-07-31 09:49] LABS: Anisocytosis 2+; Diff Comment Diff Reviewed; Macrocytosis 1+; Microcytosis 1+; Platelet Count 274 x1000/uL (130-400); Polychromasia Present
[2019-07-31] MEDS: Normal Saline Flush 10 ML SYR IVP (12:40)
[2019-08-07 09:12] LABS: Abs Immature Grans 0.03 k/cumm (0.0-0.09); Absolute Basophil Count 0.05 k/cumm (0.0-0.2); Absolute Eosinophil Count 0.03 k/cumm (0.0-0.7); Absolute Lymphocyte Count 0.73 k/cumm (1.2-3.4); Absolute Monocyte Count 0.32 k/cumm (0.11-0.7); Basophils % 1.6; Lymphocytes % 23.2; Mean Corp. HGB Concentration 33.3 g/dL (32.0-36.0); Mean Corpuscular Hemoglobin 32.2 pg (27.0-33.0); Mean Corpuscular Volume 96.5 fL (80-95); Mean Platelet Volume 10.2 fL (8.0-11.0); Monocytes % 10.2; Platelet Count 276 x1000/uL (130-400); RBC 3.11 m/cumm (4.00-5.20); RBC Distribution Width 17.3 % (11.7-14.6); White Blood Cell Count 3.15 k/cumm (4.4-10.8)
[2019-08-07 09:14] LABS: Absolute Neutrophil Count 1.98 k/cumm (1.2-6.7)
[2019-08-07] MEDS: Normal Saline Flush 10 ML SYR IVP (09:19)
[2019-08-07 09:28] LABS: ALT 72 U/L (14-59); AST 31 U/L (15-37); Albumin 3.3 g/dL (3.4-5.0); Alkaline Phosphatase 60 U/L (46-116); BUN 19 mg/dL (7-18); Bilirubin, Total 0.4 mg/dL (0.2-1.0); CREATININE 0.81 mg/dL (0.55-1.02); Calcium 8.4 mg/dL (8.5-10.1); Glucose 91 mg/dL (70-100); Total Protein 6.6 g/dL (6.4-8.2)
[2019-08-07 09:41] LABS: Chloride 107 mmol/L (98-107); Potassium 3.8 mmol/L (3.5-5.1); Sodium 141 mmol/L (136-145)
== END 2019-08-13 23:59 | disposition home or self-care (01) ==
LOC: INF 01:51
PROVIDERS: PCP Nurse Practitioner Adult Health; Visit Provider Internal Medicine
DX: C50.911 Malignant neoplasm of unspecified site of right female breast (principal); Z45.2 Encounter for adjustment and management of vascular access device
CPT/HCPCS: 36415; 36591; 80053; 96523; 85025

== ENCOUNTER 2019-09-11 02:12 | Outpatient (RCR) | payer OTHER, SELFPAY ==
[2019-08-14] MEDS: Normal Saline Flush 10 ML SYR IVP (09:27)
[2019-08-14 09:32] LABS: Abs Immature Grans 0.03 k/cumm (0.0-0.09); Absolute Basophil Count 0.04 k/cumm (0.0-0.2); Absolute Eosinophil Count 0.03 k/cumm (0.0-0.7); Absolute Lymphocyte Count 0.73 k/cumm (1.2-3.4); Absolute Monocyte Count 0.34 k/cumm (0.11-0.7); Basophils % 1.1; Eosinophils % 0.8; HGB 9.6 g/dL (12.0-15.5); Immature Grans % 0.8; Lymphocytes % 20.6; Mean Corp. HGB Concentration 33.1 g/dL (32.0-36.0); Mean Corpuscular Hemoglobin 32.4 pg (27.0-33.0); Mean Platelet Volume 10.3 fL (8.0-11.0); Monocytes % 9.6; Neutrophils % 67.1; Platelet Count 257 x1000/uL (130-400); RBC 2.96 m/cumm (4.00-5.20); RBC Distribution Width 17.3 % (11.7-14.6); White Blood Cell Count 3.54 k/cumm (4.4-10.8)
[2019-08-14 09:33] LABS: Absolute Neutrophil Count 2.38 k/cumm (1.2-6.7)
[2019-08-14 09:53] LABS: ALT 77 U/L (14-59); AST 31 U/L (15-37); Albumin 3.3 g/dL (3.4-5.0); Alkaline Phosphatase 61 U/L (46-116); BUN 20 mg/dL (7-18); Bilirubin, Total 0.4 mg/dL (0.2-1.0); CREATININE 0.88 mg/dL (0.55-1.02); Calcium 8.5 mg/dL (8.5-10.1); Chloride 108 mmol/L (98-107); Glucose 101 mg/dL (70-100); Sodium 141 mmol/L (136-145); Total Protein 6.6 g/dL (6.4-8.2)
[2019-08-21] MEDS: Normal Saline Flush 10 ML SYR IVP (09:20)
[2019-08-21 09:30] LABS: Abs Immature Grans 0.04 k/cumm (0.0-0.09); Absolute Basophil Count 0.05 k/cumm (0.0-0.2); Absolute Eosinophil Count 0.02 k/cumm (0.0-0.7); Absolute Lymphocyte Count 0.48 k/cumm (1.2-3.4); Absolute Monocyte Count 0.29 k/cumm (0.11-0.7); Absolute Neutrophil Count 2.18 k/cumm (1.2-6.7); Basophils % 1.6; Eosinophils % 0.7; HCT 29.6 % (36.0-46.0); HGB 9.6 g/dL (12.0-15.5); Immature Grans % 1.3; Lymphocytes % 15.7; Mean Corp. HGB Concentration 32.4 g/dL (32.0-36.0); Mean Corpuscular Volume 98.7 fL (80-95); Mean Platelet Volume 10.7 fL (8.0-11.0); Monocytes % 9.5; Neutrophils % 71.2; Platelet Count 276 x1000/uL (130-400); RBC Distribution Width 16.9 % (11.7-14.6); White Blood Cell Count 3.06 k/cumm (4.4-10.8)
[2019-08-21 09:44] LABS: ALT 83 U/L (14-59); AST 40 U/L (15-37); Albumin 3.4 g/dL (3.4-5.0); Alkaline Phosphatase 64 U/L (46-116); Anion Gap 9.8 mmol/L (3-11); BUN 17 mg/dL (7-18); Bilirubin, Total 0.5 mg/dL (0.2-1.0); CO2 24.2 mmol/L (21.0-32.0); CREATININE 0.91 mg/dL (0.55-1.02); Calcium 8.2 mg/dL (8.5-10.1); Chloride 108 mmol/L (98-107); Glucose 90 mg/dL (70-100); Potassium 3.8 mmol/L (3.5-5.1); Sodium 142 mmol/L (136-145); Total Protein 6.7 g/dL (6.4-8.2)
[2019-08-28] MEDS: Normal Saline Flush 10 ML SYR IVP (09:00)
[2019-08-28 09:25] LABS: Abs Immature Grans 0.01 k/cumm (0.0-0.09); Absolute Basophil Count 0.03 k/cumm (0.0-0.2); Absolute Eosinophil Count 0.01 k/cumm (0.0-0.7); Absolute Lymphocyte Count 0.52 k/cumm (1.2-3.4); Absolute Monocyte Count 0.21 k/cumm (0.11-0.7); Absolute Neutrophil Count 1.59 k/cumm (1.2-6.7); Basophils % 1.3; Eosinophils % 0.4; HCT 29.3 % (36.0-46.0); HGB 9.4 g/dL (12.0-15.5); Immature Grans % 0.4; Lymphocytes % 21.9; Mean Corp. HGB Concentration 32.1 g/dL (32.0-36.0); Mean Corpuscular Volume 99.7 fL (80-95); Mean Platelet Volume 10.2 fL (8.0-11.0); Monocytes % 8.9; Neutrophils % 67.1; Platelet Count 270 x1000/uL (130-400); RBC 2.94 m/cumm (4.00-5.20); RBC Distribution Width 16.5 % (11.7-14.6); White Blood Cell Count 2.37 k/cumm (4.4-10.8)
[2019-08-28 09:32] LABS: ALT 84 U/L (14-59); AST 36 U/L (15-37); Albumin 3.4 g/dL (3.4-5.0); Alkaline Phosphatase 61 U/L (46-116); BUN 14 mg/dL (7-18); Bilirubin, Total 0.4 mg/dL (0.2-1.0); CREATININE 0.83 mg/dL (0.55-1.02); Calcium 8.5 mg/dL (8.5-10.1); Chloride 108 mmol/L (98-107); Glucose 89 mg/dL (70-100); Potassium 3.7 mmol/L (3.5-5.1); Sodium 143 mmol/L (136-145); Total Protein 6.8 g/dL (6.4-8.2)
[2019-09-04 09:11] LABS: Abs Immature Grans 0.05 k/cumm (0.0-0.09); Absolute Basophil Count 0.04 k/cumm (0.0-0.2); Absolute Eosinophil Count 0.01 k/cumm (0.0-0.7); Absolute Lymphocyte Count 0.72 k/cumm (1.2-3.4); Absolute Monocyte Count 0.31 k/cumm (0.11-0.7); Absolute Neutrophil Count 1.65 k/cumm (1.2-6.7); Basophils % 1.4; Eosinophils % 0.4; HCT 28.8 % (36.0-46.0); HGB 9.1 g/dL (12.0-15.5); Immature Grans % 1.8; Lymphocytes % 25.9; Mean Corp. HGB Concentration 31.6 g/dL (32.0-36.0); Mean Corpuscular Hemoglobin 32.3 pg (27.0-33.0); Mean Corpuscular Volume 102.1 fL (80-95); Monocytes % 11.2; Neutrophils % 59.3; Platelet Count 259 x1000/uL (130-400); RBC 2.82 m/cumm (4.00-5.20); RBC Distribution Width 16.5 % (11.7-14.6); White Blood Cell Count 2.78 k/cumm (4.4-10.8)
[2019-09-04] MEDS: Normal Saline Flush 10 ML SYR IVP (09:20)
[2019-09-04 09:28] LABS: Anisocytosis 1+; Basophilic Stippling Present; Diff Comment RBC Morph Reviewed; Hypochromasia 1+; Macrocytosis 1+; Ovalocytes 2+
[2019-09-04 09:29] LABS: Polychromasia Present
[2019-09-04 09:34] LABS: ALT 66 U/L (14-59); AST 35 U/L (15-37); Albumin 3.3 g/dL (3.4-5.0); Alkaline Phosphatase 61 U/L (46-116); BUN 11 mg/dL (7-18); Bilirubin, Total 0.4 mg/dL (0.2-1.0); CREATININE 0.86 mg/dL (0.55-1.02); Calcium 8.3 mg/dL (8.5-10.1); Chloride 108 mmol/L (98-107); Glucose 105 mg/dL (70-100); Potassium 3.7 mmol/L (3.5-5.1); Sodium 143 mmol/L (136-145); Total Protein 6.4 g/dL (6.4-8.2)
[2019-09-11] MEDS: Normal Saline Flush 10 ML SYR IVP (09:02)
[2019-09-11 09:09] LABS: Abs Immature Grans 0.01 k/cumm (0.0-0.09); Absolute Basophil Count 0.04 k/cumm (0.0-0.2); Absolute Eosinophil Count 0.02 k/cumm (0.0-0.7); Absolute Lymphocyte Count 0.57 k/cumm (1.2-3.4); Absolute Monocyte Count 0.25 k/cumm (0.11-0.7); Absolute Neutrophil Count 1.94 k/cumm (1.2-6.7); Basophils % 1.4; Eosinophils % 0.7; HCT 29.7 % (36.0-46.0); HGB 9.6 g/dL (12.0-15.5); Immature Grans % 0.4; Lymphocytes % 20.1; Mean Corp. HGB Concentration 32.3 g/dL (32.0-36.0); Mean Corpuscular Hemoglobin 32.8 pg (27.0-33.0); Mean Corpuscular Volume 101.4 fL (80-95); Monocytes % 8.8; Neutrophils % 68.6; Platelet Count 286 x1000/uL (130-400); RBC 2.93 m/cumm (4.00-5.20); RBC Distribution Width 15.6 % (11.7-14.6); White Blood Cell Count 2.83 k/cumm (4.4-10.8)
[2019-09-11 09:25] LABS: ALT 73 U/L (14-59); AST 34 U/L (15-37); Albumin 3.4 g/dL (3.4-5.0); Alkaline Phosphatase 59 U/L (46-116); BUN 13 mg/dL (7-18); Bilirubin, Total 0.4 mg/dL (0.2-1.0); CREATININE 0.89 mg/dL (0.55-1.02); Calcium 8.8 mg/dL (8.5-10.1); Chloride 109 mmol/L (98-107); Glucose 104 mg/dL (70-100); Sodium 144 mmol/L (136-145); Total Protein 6.6 g/dL (6.4-8.2)
== END 2019-09-13 23:59 | disposition home or self-care (01) ==
LOC: INF 02:12
PROVIDERS: PCP Nurse Practitioner Adult Health; Visit Provider Internal Medicine
DX: C50.911 Malignant neoplasm of unspecified site of right female breast (principal); Z45.2 Encounter for adjustment and management of vascular access device
CPT/HCPCS: 36415; 36591; 80053; 96523; 85025

== ENCOUNTER 2019-10-02 01:28 | Outpatient (RCR) | payer OTHER, SELFPAY ==
[2019-09-18] MEDS: Normal Saline Flush 10 ML SYR IVP (09:33)
[2019-09-18 09:43] LABS: Abs Immature Grans 0.01 k/cumm (0.0-0.09); Absolute Basophil Count 0.03 k/cumm (0.0-0.2); Absolute Eosinophil Count 0.02 k/cumm (0.0-0.7); Absolute Lymphocyte Count 0.62 k/cumm (1.2-3.4); Absolute Neutrophil Count 1.57 k/cumm (1.2-6.7); Basophils % 1.2; Eosinophils % 0.8; HCT 29.9 % (36.0-46.0); HGB 9.6 g/dL (12.0-15.5); Immature Grans % 0.4; Lymphocytes % 25.3; Mean Corp. HGB Concentration 32.1 g/dL (32.0-36.0); Mean Corpuscular Hemoglobin 32.7 pg (27.0-33.0); Mean Corpuscular Volume 101.7 fL (80-95); Mean Platelet Volume 10.5 fL (8.0-11.0); Monocytes % 8.2; Neutrophils % 64.1; Platelet Count 281 x1000/uL (130-400); RBC 2.94 m/cumm (4.00-5.20); RBC Distribution Width 15.6 % (11.7-14.6); White Blood Cell Count 2.45 k/cumm (4.4-10.8)
[2019-09-18 10:03] LABS: ALT 65 U/L (14-59); AST 30 U/L (15-37); Albumin 3.4 g/dL (3.4-5.0); Alkaline Phosphatase 61 U/L (46-116); Anion Gap 9.8 mmol/L (3-11); BUN 15 mg/dL (7-18); Bilirubin, Total 0.4 mg/dL (0.2-1.0); CO2 25.2 mmol/L (21.0-32.0); CREATININE 0.81 mg/dL (0.55-1.02); Calcium 8.4 mg/dL (8.5-10.1); Chloride 108 mmol/L (98-107); Glucose 112 mg/dL (70-100); Potassium 3.8 mmol/L (3.5-5.1); Sodium 143 mmol/L (136-145); Total Protein 6.6 g/dL (6.4-8.2)
[2019-09-18 10:07] LABS: Anisocytosis 1+; Diff Comment RBC Morph Reviewed; Poikilocytes 1+; Polychromasia Present
[2019-09-25] MEDS: Normal Saline Flush 10 ML SYR IVP (08:55)
[2019-09-25 09:09] LABS: Abs Immature Grans 0.02 k/cumm (0.0-0.09); Absolute Basophil Count 0.05 k/cumm (0.0-0.2); Absolute Eosinophil Count 0.01 k/cumm (0.0-0.7); Absolute Lymphocyte Count 0.62 k/cumm (1.2-3.4); Absolute Monocyte Count 0.28 k/cumm (0.11-0.7); Absolute Neutrophil Count 1.55 k/cumm (1.2-6.7); Eosinophils % 0.4; HCT 31.5 % (36.0-46.0); HGB 10.1 g/dL (12.0-15.5); Immature Grans % 0.8; Lymphocytes % 24.5; Mean Corp. HGB Concentration 32.1 g/dL (32.0-36.0); Mean Corpuscular Hemoglobin 32.5 pg (27.0-33.0); Mean Corpuscular Volume 101.3 fL (80-95); Mean Platelet Volume 10.3 fL (8.0-11.0); Monocytes % 11.1; Neutrophils % 61.2; Platelet Count 265 x1000/uL (130-400); RBC 3.11 m/cumm (4.00-5.20); RBC Distribution Width 15.5 % (11.7-14.6); White Blood Cell Count 2.53 k/cumm (4.4-10.8)
[2019-09-25 09:27] LABS: ALT 58 U/L (14-59); AST 29 U/L (15-37); Albumin 3.5 g/dL (3.4-5.0); Alkaline Phosphatase 58 U/L (46-116); Anion Gap 9.6 mmol/L (3-11); BUN 10 mg/dL (7-18); Bilirubin, Total 0.4 mg/dL (0.2-1.0); CO2 25.4 mmol/L (21.0-32.0); Calcium 8.7 mg/dL (8.5-10.1); Chloride 108 mmol/L (98-107); Glucose 101 mg/dL (70-100); Potassium 3.9 mmol/L (3.5-5.1); Sodium 143 mmol/L (136-145); Total Protein 6.8 g/dL (6.4-8.2)
[2019-10-02] MEDS: Normal Saline Flush 10 ML SYR IVP (07:41)
[2019-10-02 07:46] LABS: Abs Immature Grans 0.02 k/cumm (0.0-0.09); Absolute Basophil Count 0.03 k/cumm (0.0-0.2); Absolute Eosinophil Count 0.01 k/cumm (0.0-0.7); Absolute Lymphocyte Count 0.75 k/cumm (1.2-3.4); Absolute Monocyte Count 0.33 k/cumm (0.11-0.7); Absolute Neutrophil Count 1.49 k/cumm (1.2-6.7); Basophils % 1.1; Eosinophils % 0.4; HCT 31.1 % (36.0-46.0); HGB 9.9 g/dL (12.0-15.5); Immature Grans % 0.8; Lymphocytes % 28.5; Mean Corp. HGB Concentration 31.8 g/dL (32.0-36.0); Mean Corpuscular Hemoglobin 31.9 pg (27.0-33.0); Mean Corpuscular Volume 100.3 fL (80-95); Mean Platelet Volume 10.6 fL (8.0-11.0); Monocytes % 12.5; Neutrophils % 56.7; Platelet Count 257 x1000/uL (130-400); RBC Distribution Width 15.6 % (11.7-14.6); White Blood Cell Count 2.63 k/cumm (4.4-10.8)
[2019-10-02 07:58] LABS: Anisocytosis 1+; Diff Comment RBC Morph Reviewed; Macrocytosis 1+; Polychromasia Present
[2019-10-02 08:02] LABS: ALT 55 U/L (14-59); AST 27 U/L (15-37); Albumin 3.9 g/dL (3.4-5.0); Alkaline Phosphatase 57 U/L (46-116); Anion Gap 11.9 mmol/L (3-11); BUN 15 mg/dL (7-18); Bilirubin, Total 0.4 mg/dL (0.2-1.0); CO2 23.1 mmol/L (21.0-32.0); CREATININE 0.85 mg/dL (0.55-1.02); Calcium 9.2 mg/dL (8.5-10.1); Chloride 104 mmol/L (98-107); Glucose 98 mg/dL (70-100); Potassium 3.5 mmol/L (3.5-5.1); Sodium 139 mmol/L (136-145); Total Protein 7.1 g/dL (6.4-8.2)
== END 2019-10-13 23:59 | disposition home or self-care (01) ==
LOC: INF 01:28
PROVIDERS: PCP Nurse Practitioner Adult Health; Visit Provider Internal Medicine
DX: C50.911 Malignant neoplasm of unspecified site of right female breast (principal); Z45.2 Encounter for adjustment and management of vascular access device
CPT/HCPCS: 36415; 36591; 80053; 85025

== ENCOUNTER 2019-11-01 12:50 | Outpatient (RCR) | payer OTHER, SELFPAY | END 2019-11-13 23:59 | disposition home or self-care (01) | LOC: INF 12:50 | PROVIDERS: PCP Nurse Practitioner Adult Health; Visit Provider Internal Medicine | DX: C50.911 Malignant neoplasm of unspecified site of right female breast (principal); Z45.2 Encounter for adjustment and management of vascular access device | CPT/HCPCS: 36591; 96523 ==

== ENCOUNTER 2019-11-09 03:15 | Outpatient (CLI) | payer OTHER, SELFPAY ==
--- NOTE | 2019-11-09 11:24 | DI.MRI_ITS ---
EXAM: MR LUMBAR SPINE WO/W CLINICAL HISTORY: MALIGNANT NEOPLASM RT BREAST C50.911, R/O METS. TECHNIQUE: Multiplanar multisequence MRI was performed. COMPARISON: DEXA BONE DENSITY WITH GARY from 07/08/2010 FINDINGS: MR examination of the lumbar spine was performed according to the usual protocol with additional pre and post contrast T1 fat sat imaging. Patient reportedly has a history of breast carcinoma. There are vertebral signal changes which appear to be associated with the endplates in a pattern cons istent with disc degeneration. There is a mild retrolisthesis of L1 on L2. On the T2 weighted and T1 weighted non contrast examinations there is a rounded area of abnormal sign al in the L 2 vertebral body which shows heterogeneous intermediate signal. On T1 fat sat imaging th is shows decreased signal indicating a low fat content. Post contrast images show slight enhancement of this lesion. The lesion measures up to about 17 x 14 millimeters in diameter on sagittal views. Findings as described are indeterminate and the possibility of metastatic disease would have to be r aised in a patient with a history of breast carcinoma. Other etiologies including atypical vertebral hemangioma are diagnostic possibility. Additional evaluation with radionuclide bone scan recommende d to evaluate this lesion and also to evaluate the possibility of additional lesions elsewhere. Demetrius tionally CT could be considered to evaluate the bony architecture of this lesion. The conus medullaris appears intact. No evidence of a bony central canal spinal stenosis or neural f oraminal stenosis. There is a mild right paracentral/right lateral disc herniation at L3-4. No additional disc herniati on identified in the lumbar region. No evidence of neural impingement. IMPRESSION: Indeterminate L2 vertebral body lesion, metastasis should be considered in the differential diagnosis . Additional evaluation with radionuclide bone scan recommended.
[2019-11-09] MEDS: Normal Saline Flush 10 ML SYR IVP (11:40)
[2019-11-09] MEDS: Gadoterate meglumine 20 ML VIAL 16 ML IVP (11:41)
== END 2019-11-09 03:35 ==
PROVIDERS: PCP Nurse Practitioner Adult Health; Visit Provider Radiology Radiation Oncology
DX: C50.911 Malignant neoplasm of unspecified site of right female breast (principal); M89.8X8 Other specified disorders of bone, other site; M51.27 Other intervertebral disc displacement, lumbosacral region
CPT/HCPCS: 72158

== ENCOUNTER 2019-11-23 03:32 | Outpatient (CLI) | payer OTHER, SELFPAY ==
--- NOTE | 2019-11-23 14:14 | DI.NM_ITS ---
EXAM: NM BONE SCAN WHOLE BODY GRP CLINICAL HISTORY: MALIGNANT NEOPLASM UPPER OUTER QUAD RT BREAST C50.411, INDETERMINATE LESION, AT L2 ON MRI, EVALUATE FOR METASTATIC DISEASE TECHNIQUE: Whole body bone scan with SPECT imaging of the lumbar region was obtained following intra venous infusion of 24.7 millicuries of technetium 99 labeled methylene diphosphonate. COMPARISON: MR LUMBAR SPINE WO/W from 11/09/2019 FINDINGS: Whole-body imaging shows areas of increased uptake in shoulders, knees, ankles, and mid feet as well as elbows consistent with degenerative change. There is a focal area of increased uptake in L2 verte bral body corresponding to the abnormality seen on recent MR scan. On SPECT, this area is of somewha t heterogeneously increased signal intensity with predominantly moderately increased uptake. Conside ring that this lesion did not appear to represent a Schmorl's node on MRI, metastasis is a significan t diagnostic possibility. CT may also prove helpful in characterizing this lesion. IMPRESSION: L2 lesion shows increased uptake suspicious for metastatic lesion but the findings are consistent wit h a range of differential possibilities including benign processes. CT may prove helpful in characte rization.
== END 2019-11-23 03:52 ==
PROVIDERS: PCP Nurse Practitioner Adult Health; Visit Provider Radiology Radiation Oncology
DX: C50.411 Malignant neoplasm of upper-outer quadrant of right female breast (principal); R93.7 Abnormal findings on diagnostic imaging of other parts of musculoskeletal system
CPT/HCPCS: 78306

== ENCOUNTER 2019-12-18 02:10 | Outpatient (RCR) | payer OTHER, SELFPAY ==
[2019-12-18] MEDS: Normal Saline Flush 10 ML SYR IVP (12:31)
[2019-12-18] MEDS: Heparin 500 UNITS/5 ML SYRINGE IV (12:32)
[2019-12-18 12:46] LABS: Absolute Basophil Count 0.01 k/cumm (0.0-0.2); Absolute Eosinophil Count 0.07 k/cumm (0.0-0.7); Absolute Lymphocyte Count 0.63 k/cumm (1.2-3.4); Absolute Neutrophil Count 2.38 k/cumm (1.2-6.7); Basophils % 0.3; HCT 39.1 % (36.0-46.0); HGB 12.7 g/dL (12.0-15.5); Lymphocytes % 18.1; Mean Corp. HGB Concentration 32.5 g/dL (32.0-36.0); Mean Corpuscular Hemoglobin 31.1 pg (27.0-33.0); Mean Corpuscular Volume 95.6 fL (80-95); Mean Platelet Volume 10.9 fL (8.0-11.0); Monocytes % 11.5; Neutrophils % 68.1; Platelet Count 216 x1000/uL (130-400); RBC 4.09 m/cumm (4.00-5.20); RBC Distribution Width 13.2 % (11.7-14.6); White Blood Cell Count 3.49 k/cumm (4.4-10.8)
[2019-12-18 13:07] LABS: ALT 28 U/L (14-59); AST 22 U/L (15-37); Albumin 3.5 g/dL (3.4-5.0); Alkaline Phosphatase 49 U/L (46-116); Anion Gap 10.5 mmol/L (3-11); BUN 16 mg/dL (7-18); Bilirubin, Total 0.3 mg/dL (0.2-1.0); CO2 25.5 mmol/L (21.0-32.0); CREATININE 0.76 mg/dL (0.55-1.02); Calcium 8.8 mg/dL (8.5-10.1); Chloride 106 mmol/L (98-107); Glucose 82 mg/dL (74-106); Potassium 3.4 mmol/L (3.5-5.1); Sodium 142 mmol/L (136-145); Total Protein 6.7 g/dL (6.4-8.2)
== END 2020-01-12 23:59 | disposition home or self-care (01) ==
LOC: INF 02:10
PROVIDERS: Internal Medicine; PCP Nurse Practitioner Adult Health; Visit Provider Internal Medicine Hematology & Oncology
DX: C50.919 Malignant neoplasm of unspecified site of unspecified female breast (principal); C77.3 Secondary and unspecified malignant neoplasm of axilla and upper limb lymph nodes; Z45.2 Encounter for adjustment and management of vascular access device
CPT/HCPCS: 36415; 80053; 96523; 85025

== ENCOUNTER 2020-01-21 09:02 | Outpatient (RCR) | payer OTHER, SELFPAY ==
[2020-01-21] MEDS: Heparin 500 UNITS/5 ML SYRINGE IVP (09:12)
[2020-01-21] MEDS: Normal Saline Flush 10 ML SYR IVP (09:12)
== END 2020-02-12 23:59 | disposition home or self-care (01) ==
LOC: INF 09:02
PROVIDERS: PCP Nurse Practitioner Adult Health; Visit Provider Internal Medicine
DX: Z45.2 Encounter for adjustment and management of vascular access device (principal)
CPT/HCPCS: 96523

== ENCOUNTER 2020-03-04 00:55 | Outpatient (RCR) | payer OTHER, SELFPAY ==
[2020-03-04 09:13] LABS: Absolute Basophil Count 0.01 k/cumm (0.0-0.2); Absolute Eosinophil Count 0.05 k/cumm (0.0-0.7); Absolute Lymphocyte Count 0.78 k/cumm (1.2-3.4); Absolute Monocyte Count 0.26 k/cumm (0.11-0.7); Basophils % 0.3; Eosinophils % 1.4; HCT 37.7 % (36.0-46.0); HGB 12.7 g/dL (12.0-15.5); Lymphocytes % 21.1; Mean Corp. HGB Concentration 33.7 g/dL (32.0-36.0); Mean Corpuscular Hemoglobin 31.7 pg (27.0-33.0); Mean Platelet Volume 10.4 fL (8.0-11.0); Neutrophils % 70.2; Platelet Count 214 x1000/uL (130-400); RBC 4.01 m/cumm (4.00-5.20); RBC Distribution Width 13.6 % (11.7-14.6)
[2020-03-04 09:28] LABS: ALT 34 U/L (14-59); AST 23 U/L (15-37); Albumin 3.4 g/dL (3.4-5.0); Alkaline Phosphatase 52 U/L (46-116); Anion Gap 8.4 mmol/L (3-11); BUN 21 mg/dL (7-18); Bilirubin, Total 0.4 mg/dL (0.2-1.0); CO2 27.6 mmol/L (21.0-32.0); CREATININE 0.74 mg/dL (0.55-1.02); Calcium 9.1 mg/dL (8.5-10.1); Chloride 106 mmol/L (98-107); Glucose 93 mg/dL (74-106); Potassium 3.3 mmol/L (3.5-5.1); Sodium 142 mmol/L (136-145); Total Protein 6.9 g/dL (6.4-8.2)
[2020-03-04] MEDS: Normal Saline Flush 10 ML SYR IVP (09:31)
[2020-03-04] MEDS: Heparin 500 UNITS/5 ML SYRINGE IV (09:32)
== END 2020-03-13 23:59 | disposition home or self-care (01) ==
LOC: INF 00:55
PROVIDERS: PCP Nurse Practitioner Adult Health; Visit Provider Internal Medicine
DX: C50.919 Malignant neoplasm of unspecified site of unspecified female breast (principal); C77.3 Secondary and unspecified malignant neoplasm of axilla and upper limb lymph nodes; Z45.2 Encounter for adjustment and management of vascular access device
CPT/HCPCS: 36415; 80053; 96523; 85025

== ENCOUNTER 2020-05-28 00:54 | Outpatient (RCR) | payer OTHER, SELFPAY ==
[2020-04-17] MEDS: Normal Saline Flush 10 ML SYR IVP (08:06)
[2020-04-17] MEDS: Heparin 500 UNITS/5 ML SYRINGE IV (08:07)
[2020-05-28] MEDS: Normal Saline Flush 10 ML SYR IVP (07:40)
[2020-05-28] MEDS: Heparin 500 UNITS/5 ML SYRINGE IV (07:40)
== END 2020-05-28 23:59 | disposition home or self-care (01) ==
LOC: INF 00:54
PROVIDERS: PCP Nurse Practitioner Adult Health; Visit Provider Internal Medicine
DX: Z45.2 Encounter for adjustment and management of vascular access device (principal)
CPT/HCPCS: 96523

== ENCOUNTER 2020-05-29 14:14 | Outpatient (RCR) | payer OTHER, SELFPAY ==
[2020-05-29] MEDS: Heparin 500 UNITS/5 ML SYRINGE IVP (14:12)
[2020-06-13] MEDS: Normal Saline Flush 10 ML SYR 30 ML IVP (09:43)
== END 2020-06-13 23:59 | disposition home or self-care (01) ==
LOC: INF 14:14
PROVIDERS: PCP Nurse Practitioner Adult Health; Visit Provider Nurse Practitioner Adult Health
DX: Z45.2 Encounter for adjustment and management of vascular access device (principal)
CPT/HCPCS: 96523

== ENCOUNTER 2020-06-11 01:40 | Outpatient (CLI) | payer OTHER, SELFPAY ==
--- NOTE | 2020-06-11 06:45 | DI.MAMMO_ITS ---
EXAM: MG MAMMO SCREENING 60 MIN DUR CLINICAL HISTORY: breast cancer screening,S/P RT BREAST CA AND MASTECTOMY TECHNIQUE: Mammograms were interpreted according to the usual protocol including computer analysis w ith CAD system, tomosynthesis and 2D or C-view imaging. COMPARISON: 2010 through 2018. FINDINGS: The patient is status post right mastectomy. The left breast is composed fatty density tissue, breast density category A. A port is seen in the upper inner quadrant the left breast. Compression was somewhat limited due to presence of the port. No suspicious masses or suspicious microcalcifications are seen. IMPRESSION: BI-RADS Category 1 - Negative, negative mammogram. Yearly screening mammography is recommended. Breast Density - Category A - Almost entirely fatty The patient will receive a letter notifying them of these results.
== END 2020-06-11 02:00 ==
PROVIDERS: PCP Nurse Practitioner Adult Health; Visit Provider Nurse Practitioner Adult Health
DX: Z12.31 Encounter for screening mammogram for malignant neoplasm of breast (principal); R92.2 Inconclusive mammogram; Z90.11 Acquired absence of right breast and nipple; Z85.3 Personal history of malignant neoplasm of breast
CPT/HCPCS: 77063; 77067

== ENCOUNTER 2020-07-25 05:21 | Outpatient (RCR) | payer OTHER, SELFPAY ==
[2020-07-25] MEDS: Normal Saline Flush 10 ML SYR IVP (07:40)
[2020-07-25] MEDS: Heparin 500 UNITS/5 ML SYRINGE IV (07:40)
== END 2020-08-13 23:59 | disposition home or self-care (01) ==
LOC: INF 05:21
PROVIDERS: PCP Nurse Practitioner Adult Health; Visit Provider Internal Medicine
DX: Z45.2 Encounter for adjustment and management of vascular access device (principal)
CPT/HCPCS: 96523

== ENCOUNTER 2020-09-23 07:17 | Outpatient (RCR) | payer OTHER, SELFPAY ==
[2020-09-23] MEDS: Normal Saline Flush 10 ML SYR 30 ML IVP (07:30)
[2020-09-23] MEDS: Heparin 500 UNITS/5 ML SYRINGE IVP (07:30)
[2020-09-23 07:46] LABS: Abs Immature Grans 0.01 10^3/uL (0.0-0.06); Absolute Basophil Count 0.04 10^3/uL (0.0-0.2); Absolute Eosinophil Count 0.11 10^3/uL (0.0-0.7); Absolute Lymphocyte Count 0.71 10^3/uL (1.2-3.4); Absolute Monocyte Count 0.31 10^3/uL (0.1-0.8); Absolute Neutrophil Count 1.89 10^3/uL (1.2-6.7); Basophils % 1.3; Eosinophils % 3.6; HGB 13.1 g/dL (11.2-15.7); Immature Grans % 0.3; Lymphocytes % 23.1; MCH 31.8 pg (27.0-33.0); MCHC 32.8 % (32.0-36.0); MCV 97.1 fL (80-95); MPV 10.3 fL (8.0-11.0); Monocytes % 10.1; Neutrophils % 61.6; Nucleated RBC 0 %; Platelet Count 198 10^3/uL (130-400); RBC 4.12 10^6/uL (3.93-5.22); RDW 12.6 % (11.7-14.6); RDW-SD 45.1 fL; WBC 3.07 10^3/uL (4.4-10.8)
[2020-09-23 08:03] LABS: ALT 22 U/L (14-59); AST 17 U/L (15-37); Albumin 3.5 g/dL (3.4-5.0); Alkaline Phosphatase 64 U/L (46-116); Anion Gap 6.7 mmol/L (3-11); BUN 20 mg/dL (7-18); Bilirubin, Total 0.5 mg/dL (0.2-1.0); CO2 30.3 mmol/L (21.0-32.0); CREATININE 0.79 mg/dL (0.55-1.02); Calcium 8.8 mg/dL (8.5-10.1); Chloride 107 mmol/L (98-107); Glucose 71 mg/dL (74-106); Potassium 3.4 mmol/L (3.5-5.1); Sodium 144 mmol/L (136-145); Total Protein 6.9 g/dL (6.4-8.2)
== END 2020-10-13 23:59 | disposition home or self-care (01) ==
LOC: INF 07:17
PROVIDERS: PCP Nurse Practitioner Adult Health; Visit Provider Internal Medicine
DX: C77.3 Secondary and unspecified malignant neoplasm of axilla and upper limb lymph nodes (principal); C50.911 Malignant neoplasm of unspecified site of right female breast; Z90.11 Acquired absence of right breast and nipple; Z45.2 Encounter for adjustment and management of vascular access device
CPT/HCPCS: 36415; 80053; 96523; 85025

== ENCOUNTER 2021-04-07 03:41 | Outpatient (CLI) | payer OTHER, SELFPAY ==
[2021-04-07 17:15] LABS: Abs Immature Grans 0.01 10^3/uL (0.0-0.06); Absolute Basophil Count 0.03 10^3/uL (0.0-0.2); Absolute Eosinophil Count 0.11 10^3/uL (0.0-0.7); Absolute Lymphocyte Count 1.54 10^3/uL (1.2-3.4); Absolute Monocyte Count 0.55 10^3/uL (0.1-0.8); Basophils % 0.6; Eosinophils % 2.2; HGB 13.5 g/dL (11.2-15.7); Immature Grans % 0.2; Lymphocytes % 30.6; MCH 32.1 pg (27.0-33.0); MCHC 33.8 % (32.0-36.0); MPV 10.7 fL (8.0-11.0); Monocytes % 10.9; Neutrophils % 55.5; Nucleated RBC 0 %; Platelet Count 212 10^3/uL (130-400); RBC 4.21 10^6/uL (3.93-5.22); RDW 12.4 % (11.7-14.6); WBC 5.04 10^3/uL (4.4-10.8)
[2021-04-07 17:58] LABS: ALT 24 U/L (14-59); AST 14 U/L (15-37); Albumin 3.8 g/dL (3.4-5.0); Alkaline Phosphatase 72 U/L (46-116); Anion Gap 10.8 mmol/L (3-11); BUN 25 mg/dL (7-18); Bilirubin, Total 0.4 mg/dL (0.2-1.0); CO2 28.2 mmol/L (21.0-32.0); CREATININE 0.9 mg/dL (0.55-1.02); Calcium 9.2 mg/dL (8.5-10.1); Chloride 104 mmol/L (98-107); Glucose 84 mg/dL (74-106); Potassium 3.2 mmol/L (3.5-5.1); Sodium 143 mmol/L (136-145); Total Protein 7.1 g/dL (6.4-8.2)
== END 2021-04-07 03:42 | disposition home or self-care (01) ==
LOC: LBO 03:41
PROVIDERS: PCP Nurse Practitioner Adult Health; Visit Provider Internal Medicine
DX: C50.411 Malignant neoplasm of upper-outer quadrant of right female breast (principal); C77.3 Secondary and unspecified malignant neoplasm of axilla and upper limb lymph nodes
CPT/HCPCS: 36415; 80053; 85025

== ENCOUNTER 2021-06-29 02:03 | Outpatient (CLI) | payer OTHER, SELFPAY ==
--- NOTE | 2021-06-29 06:55 | DI.MAMMO_ITS ---
Exam(s) MG MAMMO SCREENING 60 MIN DUR EXAM: MG MAMMO SCREENING 60 MIN DUR CLINICAL HISTORY: breast cancer screening,PERSONAL H/O BREAST CA,. TECHNIQUE: Full field digital CC and MLO mammographic images were obtained of the left breast (previ ous right mastectomy) with 3D tomosynthesis and utilizing computer aided detection (CAD). COMPARISON: Prior mammograms dating back to 2010, the most recent being May 2020 . This patient underwent right breast lumpectomy in 2019 followed by chemo and radiation therapy. FINDINGS: There has been no significant change in the appearance and distribution of the fibroglandular tissue of the left breast. There are no new spiculated masses nor malignant appearing microcalcification groups. There is no significant architectural distortion nor skin thickening-retraction. IMPRESSION: No radiographic evidence of malignancy in left breast. Previous right mastectomy. BI-RADS Category 1 - Negative Breast Density - Category B - Scattered areas of fibroglandular density Breast density Category C or D implies that the patient has dense breast tissue. Dense breast tissue can make it harder to find cancer on a mammogram. Dense breast tissue is also associated with an incr eased risk of breast cancer. This information about the result of the mammogram report was provided to the patient to raise their awareness. Use this report when you speak with the patient about their risks for breast cancer, which includes their family history. At that time, you may recommend additional screening tests (Ultrasoun d or MRI) as these tests may add significant information. A negative radiographic report should not delay biopsy if a dominant or clinically suspicious mass is present. Up to ten percent of cancers are not identified on mammography. A negative report may reinforce clinical impression. Adenosis and dense breasts may obscure an underlying neoplasm. False positive reports average 6 to 10%. Patient will receive a letter notifying them of these results.
== END 2021-06-29 02:23 ==
PROVIDERS: PCP Nurse Practitioner Adult Health; Visit Provider Nurse Practitioner Adult Health
DX: Z12.31 Encounter for screening mammogram for malignant neoplasm of breast (principal); Z85.3 Personal history of malignant neoplasm of breast; Z90.11 Acquired absence of right breast and nipple
CPT/HCPCS: 77063; 77067

== ENCOUNTER 2021-09-22 04:26 | Outpatient (CLI) | payer OTHER, SELFPAY ==
[2021-09-22 13:38] LABS: Calculated LDL 150 mg/dL (<100); Cholesterol 246 mg/dL (<200); HDL Cholesterol 77 mg/dL (40-60); TSH (W/Ref FT4) 5.24 uIU/mL (0.36-3.74); Triglyceride 99 mg/dL (<150)
[2021-09-22 14:26] LABS: FREE T4 1.05 ng/dL (0.76-1.46)
== END 2021-09-22 04:27 | disposition home or self-care (01) ==
PROVIDERS: PCP Nurse Practitioner Adult Health; Visit Provider Nurse Practitioner Adult Health
DX: E03.9 Hypothyroidism, unspecified (principal); E78.5 Hyperlipidemia, unspecified
CPT/HCPCS: 36415; 80061; 84439; 84443

== ENCOUNTER 2021-09-29 09:35 | Outpatient (CLI) | payer OTHER, SELFPAY ==
[2021-09-29 09:41] LABS: Abs Immature Grans 0.02 10^3/uL (0.0-0.06); Absolute Basophil Count 0.04 10^3/uL (0.0-0.2); Absolute Eosinophil Count 0.08 10^3/uL (0.0-0.7); Absolute Lymphocyte Count 1.48 10^3/uL (1.2-3.4); Absolute Neutrophil Count 2.69 10^3/uL (1.2-6.7); Basophils % 0.8; Eosinophils % 1.7; HCT 39.6 % (36.0-46.0); HGB 13.3 g/dL (11.2-15.7); Immature Grans % 0.4; Lymphocytes % 30.8; MCH 32.2 pg (27.0-33.0); MCHC 33.6 % (32.0-36.0); MCV 95.9 fL (80-95); MPV 10.5 fL (8.0-11.0); Monocytes % 10.4; Neutrophils % 55.9; Nucleated RBC 0 %; Platelet Count 211 10^3/uL (130-400); RBC 4.13 10^6/uL (3.93-5.22); RDW 12.5 % (11.7-14.6); RDW-SD 44.7 fL; WBC 4.81 10^3/uL (4.4-10.8)
[2021-09-29 09:57] LABS: ALT 24 U/L (14-59); AST 15 U/L (15-37); Albumin 3.7 g/dL (3.4-5.0); Alkaline Phosphatase 67 U/L (46-116); BUN 22 mg/dL (7-18); Bilirubin, Total 0.4 mg/dL (0.2-1.0); CREATININE 0.8 mg/dL (0.55-1.02); Calcium 9.2 mg/dL (8.5-10.1); Chloride 106 mmol/L (98-107); Glucose 85 mg/dL (74-106); Sodium 144 mmol/L (136-145); Total Protein 7.5 g/dL (6.4-8.2)
== END 2021-09-29 09:36 | disposition home or self-care (01) ==
LOC: LBO 09:36
PROVIDERS: PCP Nurse Practitioner Adult Health; Visit Provider Internal Medicine
DX: C77.3 Secondary and unspecified malignant neoplasm of axilla and upper limb lymph nodes (principal); C50.919 Malignant neoplasm of unspecified site of unspecified female breast
CPT/HCPCS: 36415; 80053; 85025

== ENCOUNTER 2022-03-29 03:32 | Outpatient (CLI) | payer OTHER, SELFPAY ==
[2022-03-29 12:44] LABS: Abs Immature Grans 0.01 10^3/uL (0.0-0.06); Absolute Basophil Count 0.03 10^3/uL (0.0-0.2); Absolute Eosinophil Count 0.05 10^3/uL (0.0-0.7); Absolute Lymphocyte Count 1.19 10^3/uL (1.2-3.4); Absolute Monocyte Count 0.51 10^3/uL (0.1-0.8); Absolute Neutrophil Count 3.05 10^3/uL (1.2-6.7); Basophils % 0.6; HCT 40.3 % (36.0-46.0); HGB 13.3 g/dL (11.2-15.7); Immature Grans % 0.2; Lymphocytes % 24.6; MCH 31.6 pg (27.0-33.0); MCV 96 fL (80-95); MPV 11.2 fL (8.0-11.0); Monocytes % 10.5; Neutrophils % 63.1; Platelet Count 245 10^3/uL (130-400); RBC 4.21 10^6/uL (3.93-5.22); RDW 12.9 % (11.7-14.6); RDW-SD 45.3 fL; WBC 4.84 10^3/uL (4.4-10.8)
[2022-03-29 13:01] LABS: ALT 26 U/L (14-59); AST 16 U/L (15-37); Albumin 3.7 g/dL (3.4-5.0); Alkaline Phosphatase 70 U/L (46-116); Anion Gap 9.5 mmol/L (3-11); BUN 28 mg/dL (7-18); Bilirubin, Total 0.5 mg/dL (0.2-1.0); CO2 28.5 mmol/L (21.0-32.0); CREATININE 0.9 mg/dL (0.55-1.02); Calcium 9.1 mg/dL (8.5-10.1); Chloride 105 mmol/L (98-107); Glucose 91 mg/dL (74-106); Potassium 4.5 mmol/L (3.5-5.1); Sodium 143 mmol/L (136-145)
== END 2022-03-29 03:33 | disposition home or self-care (01) ==
LOC: LOS 03:32
PROVIDERS: PCP Nurse Practitioner Adult Health; Visit Provider Internal Medicine
DX: C50.411 Malignant neoplasm of upper-outer quadrant of right female breast (principal); Z17.0 Estrogen receptor positive status [ER+]
CPT/HCPCS: 36415; 80053; 85025

== ENCOUNTER → 2022-06-18 00:26 | Outpatient (CLI) | payer OTHER, SELFPAY ==
--- OUTSIDE RECORDS SUMMARY | 2022-06-18 00:28 | XMS_ITS | Encounter Summary ---
:1950 Author Organization [facility] [place] [address] Care Team Providers Name Role Phone Mary Chinchilla NIC Primary Care Provider Reason for Visit Reason Comments Radiation Follow-up Encounter Details Date Type Department Care Team Description 07/14/2020 Office Visit Radiation Oncology at Jo Rae MD Hormone receptor [facility] positive malignant [address] neoplasm of right [place], [place] RADIATION ONCOL OGY breast [address] [place] [address] [phone] Social History Tobacco Use Types Packs/Day Years Used Date Never Smoker Smokeless Tobacco: Never Used Alcohol Use Standard Drinks/Week Comments Not Currently 0 (1 standard drink = 0.6 oz pure alcoho l) Sex Assigned at Date Recorded Not on file documented as of this encounter Last Filed Vital Signs Vital Sign Reading Time Taken Comments Blood Pressure - - Pulse - - Temperature 36.4 ??C (97.5 ??F) 07/14/2020 2:45 PM EDT Respiratory Rate - - Oxygen Saturation - - Inhaled Oxygen Concentration - - Weight 77.3 kg (170 lb 6.4 oz) 07/14/2020 2:45 PM EDT Height - - Body Mass Index 32.21 03/04/2020 10:02 AM EDT documented in this encounter Patient Instructions Patient InstructionsChantelle Rae MD - 07/14/2020 2:30 PM EDT Your exam is without worrisome finding. I would like to see you for followup in 6 months. Someone will contact you to schedule the appointment. documented in this encounter Progress Notes Chantelle Rae MD - 07/14/2020 2:30 PM EDT Images from the original note were not included. CC: Sched'd fu s/p xrt completion. HPI: Nery is a 69 y/o f who completed xrt to R supraclav, R axilla, R IMC & R chest wall 7 mosago (12/04/19) for breast ca, R, IDC, 2 foci, 24 mm & 10 mm, gr 2, both ER+ME+ & Her2 neg, s/p mastectomy & SNB, mpT2 pN1, s/p adjuvant chemo. She is taking letrozole, started after xrt completion. Subjective: No breast problem. No hand/arm swelling. ROM arms around shoulders ok. Energy level ok. She reports L mmg in February. Past Medical History: Diagnosis Date ??? Glaucoma ??? HTN (hypertension) ??? Hyperlipidemia ??? Osteoarthritis ??? Subclinical hypothyroidism No scleroderma/lupus. Past Surgical History: Procedure Laterality Date ??? APPENDECTOMY ??? MASTECTOMY Right ??? TUBAL LIGATION Your Medications Accurate as of July 14, 2020 3:20 PM. If you have any questions, ask your nurse or doctor. Continued medications, unchanged Dose Details bimatoprost 0.01 % Drop Commonly known as: LUMIGAN Apply 1 drop to eye nightly. Both eyes 1 drop Refills: 0 Combigan 0.2-0.5 % Drop Apply 1 drop to eye daily. Generic drug: Brimonidine-Timolol 1 drop Refills: 0 hydroCHLOROthiazide 12.5 mg Tab Commonly known as: Hydrodiuril Take 12.5 mg by mouth daily. 12.5 mg Refills: 0 ibuprofen 600 mg Tab Commonly known as: Advil;Motrin Take 600 mg by mouth daily as needed. 600 mg Refills: 4 letrozole 2.5 mg Tab Commonly known as: Femara Take 1 tablet by mouth daily. 2.5 mg Quantity: 90 tablet Refills: 3 LORazepam 0.5 mg Tab Commonly known as: Ativan Take 1 tablet by mouth every 6 hours as needed for Anxiety (nausea). 0.5 mg Quantity: 15 tablet Refills: 0 prochlorperazine 10 mg Tab Commonly known as: Compazine Take 1 tablet by mouth every 6 hours as needed for Nausea. 10 mg Quantity: 30 tablet Refills: 3 Physical Exam Constitutional: Appearance: Normal appearance. She is not diaphoretic. Comments: Temp 36.4 ??C (97.5 ??F) (Temporal) Wt 77.3 kg (170 lb 6.4 oz) BMI 32.21 kg/m?? HENT: Head: Normocephalic and atraumatic. Eyes: General: No scleral icterus. Right eye: No discharge. Left eye: No discharge. Extraocular Movements: Extraocular movements intact. Conjunctiva/sclera: Conjunctivae normal. Pupils: Pupils are equal, round, and reactive to light. Neck: Musculoskeletal: Normal range of motion and neck supple. Pulmonary: Effort: Pulmonary effort is normal. No respiratory distress. Breath sounds: No stridor. Chest: Breasts: Left: No inverted nipple, mass, nipple discharge, skin change or tenderness. Abdominal: General: There is no distension. Palpations: Abdomen is soft. There is no mass. Tenderness: There is no abdominal tenderness. There is no guarding or rebound. Musculoskeletal: Normal range of motion. General: No swelling or deformity. Lymphadenopathy: Head: Right side of head: No submental, submandibular, preauricular, posterior auricular or occipital adenopathy. Left side of head: No submental, submandibular, preauricular, posterior auricular or occipital adenopathy. Cervical: No cervical adenopathy. Upper Body: Right upper body: No supraclavicular or axillary adenopathy. Left upper body: No supraclavicular or axillary adenopathy. Skin: General: Skin is warm and dry. Neurological: General: No focal deficit present. Mental Status: She is alert and oriented to person, place, and time. Coordination: Coordination normal. Gait: Gait normal. Psychiatric: Mood and Affect: Mood normal. Behavior: Behavior normal. Thought Content: Thought content normal. Judgment: Judgment normal. Imagin10/02/19 Dx'ic Rad Interp CTsim: Indeterminate, ill-defined sclerotic focus w/in inferior L2 vertebral body, concerning for met osseous lesion. Rec correlation & further eval w/nuc med bone scan. ?? 11/09/19 MRI of L[facility]spine at [facility]. This demonstrates indeterminate L2 VB lesion, with metastasis in DDx. Recommended bone scan as follow-up. ?? 11/23/19 bone scan: Increased uptake @ L2 suspicious for met dz but differential diagnosis has a range of possibilities including benign processes. CT may be helpful. ?? A: CHASTITY. P: Rtc 6 mos. 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
--- OUTSIDE RECORDS SUMMARY | 2022-06-18 00:28 | XMS_ITS | Encounter Summary ---
:1950 Author Organization [facility] [place] [address] Care Team Providers Name Role Phone Mary Chinchilla APRN Primary Care Provider Encounter Details Date Type Department Care Team Description 11/09/2019 Ancillary Procedure Radiology Library at Adry Chinchilla [facility] [address] [place] [phone] (Wo rk) Social History Tobacco Use Types Packs/Day Years Used Date Never Smoker Smokeless Tobacco: Never Used Alcohol Use Standard Drinks/Week Comments Not Currently 0 (1 standard drink = 0.6 oz pure alcoho l) Sex Assigned at Date Recorded Not on file documented as of this encounter Plan of Treatment Not on filedocumented as of this encounter Procedures Procedure Name Priority Date/Time Associated Diagnosis Comme nts FILM LIBRARY Routine 11/09/2019 3:49 PM Results f or this STORAGE ONLY MR EST procedure ar e in SPINE the results section. documented in this encounter Results Film Library- Storage Only MR Spine (11/09/2019 3:49 PM EST) Specimen (Source) Anatomical Location Collection Method / Collectio n Time Received Time / Laterality Volume Narrative RAD - 11/09/2019 3:49 PM EST This exam is auto-finalizing. It's purpo se is for storage only. Mary Chinchilla APRN IMG FILM LIBRARY ORDERABLES Performing Organization Address City/State/ZIP Code Phon e Number [facility] [place] documented in this encounter Visit Diagnoses Not on filedocumented in this encounter Care Teams [address] Justice Relationship Specialty Start Date End Date Mary Chinchilla APRN PCP - General Geriatric Medicine 04/24/[address] [place] [address] documented as of this encounter
--- OUTSIDE RECORDS SUMMARY | 2022-06-18 00:28 | XMS_ITS | Encounter Summary ---
:1950 Author Organization [facility] [place] [address] Care Team Providers Name Role Phone GaryMary Palomares NIC Primary Care Provider Reason for Visit Reason Comments On Treatment Visit Encounter Details Date Type Department Care Team Description 12/04/2019 Office Visit Radiation Oncology at Jo Rae MD [place] [facility] [place] [address] of right female [place], [place] RADIATION ONCOL OGY breast, unspecified [id number] [place] [address] estrogen receptor [phone] status (Work) Social History Tobacco Use Types Packs/Day Years Used Date Never Smoker Smokeless Tobacco: Never Used Alcohol Use Standard Drinks/Week Comments Not Currently 0 (1 standard drink = 0.6 oz pure alcoho l) Sex Assigned at Date Recorded Not on file documented as of this encounter Last Filed Vital Signs Vital Sign Reading Time Taken Comments Blood Pressure 115/71 12/04/2019 9:16 AM EST Pulse 69 12/04/2019 9:16 AM EST Temperature 36.6 ??C (97.9 ??F) 12/04/2019 9:16 AM EST Respiratory Rate 18 12/04/2019 9:16 AM EST Oxygen Saturation 100% 12/04/2019 9:16 AM EST Inhaled Oxygen Concentration - - Weight 76.2 kg (167 lb 15.9 oz) 12/04/2019 9:16 AM EST Height - - Body Mass Index 31.76 10/02/2019 9:23 AM EST documented in this encounter Patient Instructions Patient InstructionsChantelle Rae MD - 12/04/2019 9:15 AM EST Congratulations on completing radiotherapy. Please continue the bradley's cream. Please do not use a straight/regular razor on your right underarm. An electric razor is ok. Please do not expose the irradiated area to sun. Please do not expose irradiated area to chlorinated water. Saltwater or freshwater is ok. Please do not expose irradiated area to hot tub water. Hot bath/shower ok. Followup with me [place], 12/18/19 @ 1. Someone will call you to schedule a CT of spine to be done @ [facility]. documented in this encounter Progress Notes Chantelle Rae MD - 12/04/2019 9:15 AM EST Images from the original note were not included. DIAGNOSIS: Breast ca, R, IDC, 2 foci, 24 mm & 10 mm, gr 2, both ER+[place]+ & Her2 neg, s/p mastectomy & SNB, mpT2 pN1, s/p adjuvant chemo. CURRENT TREATMENT DOSE: 50 Gy R supraclav, R axilla, R IMC, R chest wall; 60 Gy mastectomy scar ANTICIPATED TOTAL DOSE: 50 Gy R supraclav, R axilla, R IMC, R chest wall; 60 Gy mastectomy scar Current # of xrt received: 25 R supraclav, R axilla, R IMC, R chest wall; 30 mastectomy scar Anticipated total # of xrt txs: 25 R supraclav, R axilla, R IMC, R chest wall; 30 mastectomy scar Evaluation of port verification films: Approved. For details, see electronic film record in [employer] [facility]. Changes in Medical Condition: Irritation & itchiness of skin w/in irrad'd area adequately relieved by bradley's cream & mepilex-lite. Mild sense of lump in throat which does not give significant dysphagia, no odynophagia. Pain?: No Your Medications Accurate as of December 04, 2019 9:41 AM. If you have any questions, ask your nurse or doctor. Continued medications, unchanged Dose Details bimatoprost 0.01 % Drop Commonly known as: LUMIGAN Apply 1 drop to eye nightly. Both eyes 1 drop Refills: 0 Combigan 0.2-0.5 % Drop Apply 1 drop to eye daily. Generic drug: Brimonidine-Timolol 1 drop Refills: 0 CREAM BASE TOP Apply topically. Jeans Cream. Apply to area of radiation twice a day but no less than 2 hours beforea treatment. Refills: 0 Glucosamine 500 mg Tab Take by mouth. Generic drug: glucosamine sulfate Refills: 0 hydroCHLOROthiazide 12.5 mg Tab Commonly known as: HYDRODIURIL Take 12.5 mg by mouth daily. 12.5 mg Refills: 0 ibuprofen 600 mg Tab Commonly known as: Advil;Motrin Take 600 mg by mouth daily as needed. 600 mg Refills: 4 LORazepam 0.5 mg Tab Commonly known as: Ativan Take 1 tablet by mouth every 6 hours as needed for Anxiety (nausea). 0.5 mg Quantity: 15 tablet Refills: 0 prochlorperazine 10 mg Tab Commonly known as: Compazine Take 1 tablet by mouth every 6 hours as needed for Nausea. 10 mg Quantity: 30 tablet Refills: 3 Physical Exam: BP 115/71 (Patient Position: Sitting) Pulse 69 Temp 36.6 ??C (97.9 ??F) (Oral) Resp 18 Wt 76.2 kg (167 lb 15.9 oz) SpO2 100% BMI 31.76 kg/m?? A&Ox3, NAD. Mild to moderateerythema of irrad'd skin w/moderate folliculitis, mainly in R medial infraclav & supraclav, skinintact. Imagin10/02/19 Dx'ic Rad Interp CTsim: Indeterminate, ill-defined sclerotic focus w/in inferior L2 vertebral body, concerning for met osseous lesion. Rec correlation & further eval w/nuc med bone scan. 11/09/19 MRI of L-spine at [facility]. This demonstrates indeterminate L2 VB lesion, with metastasis in DDx. Recommended bone scan as follow-up. 11/23/19 bone scan: Increased uptake @ L2 suspicious for met dz but differential diagnosis has a range of possibilities including benign processes. CT may be helpful. Performance Status: KPS 100% Response to xrt: As expected. Irradiation Related Symptoms: Skin rxn. Pharyngitis/esophagitis. Treatment for Symptom Control: Mepilex-lite. Bradley's cream. Pain Management: Not needed. Recommendation on Continuing Course of xrt: Completes xrt today. Care of irrad'd skin discussed. CTsim for xrt planning initially showed L2 lesion, leading to MRI & then bone scan for further eval; now CT suggested for further eval indeterminate L2 lesion. Discussion w/Nery about difference btwn dx'ic CT w/IV dye & CTsim which was w/o IV dye; also, about use of followup imaging for comparison. I rec'd reimaging L spine w/dx'ic CT w/IV dye w/in 1-2 mos. Rtc for skin check 12/18/19. Dr. Gorman 12/18/19. The completed course of xrt is summarized as follows: 10/22/19 - 12/04/19, 50 Gy/25 fxs R supraclavicular fossa & R axilla with 10 MV Xray external beam & to R IMC & R chest wall with 6 & 10 MV Xray external beam, followed by volume reduction & 10 Gy/5 fxs to mastectomy scar with 6 & 10 MV Xray external beam, boosting mastectomy scar to 60 Gy/30 fxs. 3D xrt used throughout treatment. 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
--- OUTSIDE RECORDS SUMMARY | 2022-06-18 00:28 | XMS_ITS | Encounter Summary ---
:1950 Author Organization [facility] [place] [address] Care Team Providers Name Role Phone Mary Chinchilla APRN Primary Care Provider Reason for Referral Consultation (Routine) - Specialty Diagnoses / Procedures Referred By Contact Refer red To Contact General Surgery Diagnoses Breast 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, unspecified laterality Minor Gorman MD [facility] Iwona Martins MD HEMATOLOGY/ONCOLOGY [address] [place] [id number] [place] [address] Phone: Fax: Referral ID Status Reason Start Date Expiration Date Visits V isits Requested Authorized [id number] Consult, 09/23/2020 03/22/2021 1 1 Test & Treat Encounter Details Date Type Department Care Team Description 09/23/2020 Office Visit Hematology/Oncology Chidi Gorman MD [facility] DR HEMATOLOGY/[place] [address] Breast cancer metastasized to axillary l ymph node, unspecified laterality; at [facility] Pam Sharma APRN [address] [place] [address] [place] [address] 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; [address] 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, [place] [id number] Social History Tobacco Use Types Packs/Day Years Used Date Never Smoker Smokeless Tobacco: Never Used Alcohol Use Standard Drinks/Week Comments Not Currently 0 (1 standard drink = 0.6 oz pure alcoho l) Sex Assigned at Date Recorded Not on file documented as of this encounter Last Filed Vital Signs Vital Sign Reading Time Taken Comments Blood Pressure 140/65 09/23/2020 12:55 PM EST Pulse 83 09/23/2020 12:55 PM EST Temperature 36.9 ??C (98.4 ??F) 09/23/2020 12:55 PM EST Respiratory Rate 18 09/23/2020 12:55 PM EST Oxygen Saturation 98% 09/23/2020 12:55 PM EST Inhaled Oxygen Concentration - - Weight 78.8 kg (173 lb 12.8 oz) 09/23/2020 12:55 PM EST Height 154.9 cm (5' 0.98) 09/23/2020 12:55 PM EST Body Mass Index 32.86 09/23/2020 12:55 PM EST documented in this encounter Progress Notes Minor Gorman MD - 09/23/2020 1:00 PM EST Diagnosis: R IDC 2 foci 24 mm and 10 mm, ER+/RI+ HER2 neg, Gr2, mrg neg, [id number] Subjective: I've been feeling well HPI: Oncology history -02/15/19 screening mammogram highly suspicious for malignancy - 02/21/19 right mammo and US hypoechoic 2.2 cm spiculated mass 9:00 5 cm from the nipple +3 hypoechoic spiculated masses in the right breast - 02/28/19 Dr. Dot Hull performed biopsy Pathology IDC, ER+ 90% RI 25-50%, HER2 IHC 0 -04/04/19 right breast mastectomy with sentinel lymph node biopsy Dr. Hull -05/16/19 satrted [facility]. Interval history: Ms. Rueda is in clinic for follow-up of hormone positive breast cancer diagnose She is s/p surgery/chemotherapy and RT and is now on daily letrozole. Overall she has been feeling well. Complains of intermittent achiness in her body but with does not bother her too much. No new illnesses or hospitalizations. PMH: No interval changes since last visit Osteoarthritis of right knee, glaucoma, hypertension, hyperlipidemia, subclinical hypothyroidism Appendectomy, tubal ligation Social History: Continues to work full-time. Non-smoker, drinks socially. 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 Lives at home with her . Has 3 children. Social History Socioeconomic History ??? Marital status: Unknown Spouse name: Not on file ??? Number of children: Not on file ??? Years of education: Not on file ??? Highest education level: Not on file Occupational History ??? Occupation: nurse Social Needs ??? Financial resource strain: Not on file ??? Food insecurity Worry: Not on file Inability: Not on file ??? Transportation needs Medical: Not on file Non-medical: Not on file Tobacco Use ??? Smoking status: Never Smoker ??? Smokeless tobacco: Never Used Substance and Sexual Activity ??? Alcohol use: Not Currently ??? Drug use: Not on file ??? Sexual activity: Not on file Lifestyle ??? Physical activity Days per week: Not on file Minutes per session: Not on file ??? Stress: Not on file Relationships ??? Social connections Talks on phone: Not on file Gets together: Not on file Attends episcopalian service: Not on file Active member of club or organization: Not on file Attends meetings of clubs or organizations: Not on file Relationship status: Not on file ??? Intimate partner violence Fear of current or ex partner: Not on file Emotionally abused: Not on file Physically abused: Not on file Forced sexual activity: Not on file Other Topics Concern ??? Not on file Social History Narrative ??? Not on file Family History: No interval changes since last visit Mother had cervical cancer (? Ovarian cancer) OBGYN History: No interval changes since last visit Allergies: No Known Allergies NKDA Medications: Review of Systems: Constitutional: Negative for fever, chills, activity change, fatigue and unexpected weight change. HEENT: Negative for sore throat, mouth sores and trouble swallowing. Eyes: Negative. Respiratory: Negative for cough, shortness of breath and wheezing. Cardiovascular: Negative for chest pain, palpitations and leg swelling. Gastrointestinal: Negative for nausea, vomiting, abdominal pain, diarrhea, constipation and abdominal distention. Genitourinary: Negative for dysuria and difficulty urinating. Musculoskeletal: Negative. Skin: Negative. Neurological: Numbness in fingertips and toes. Hematological: Negative for adenopathy. PE: General: AAAx3, in NAD Head: Normocephalic, without obvious abnormality, atraumatic Eyes: PERRL, conjunctiva/corneas clear both eyes Ears: Normal TM's and external ear canals, both ears Nose: Nares normal, septum midline, mucosa normal, no drainage or sinus tenderness Throat: Lips, mucosa, and tongue normal; teeth and gums normal Neck: Supple, symmetrical, trachea midline, no adenopathy, thyroid: not enlarged, symmetric, no tenderness/mass/nodules Back: Symmetric, no curvature, ROM normal, no CVA tenderness Lungs: Clear to auscultation bilaterally, respirations unlabored Chest Wall: Breast exam: Right breast is absent. Well healed scar. Hyperpigmentation changes to skin. No masses or tenderness of palpation. No right axillary adenopathy. Left breast normal in appearance. No masses on palpation. No left axillary adenopathy. No nipple inversion, skin dimpling or nipple drainage. No masses or lumps in the left breast. Examination in presence of EDE Donis Heart: Regular rate and rhythm, S1, S2 normal, no murmur, rub or gallop Abdomen: Soft, non-tender, bowel sounds active all four quadrants, no masses, no organomegaly. Thereis no appreciable ascites Extremities: Extremities normal, atraumatic, no cyanosis or edema Pulses: 2+ and symmetric Skin: Skin discoloration on face and hands, dry skin Lymph nodes: Cervical, supraclavicular, and axillary nodes normal Neurologic: Normal Vitals BP 140/65 (Patient Position: Sitting) Pulse 83 Temp 36.9 ??C (98.4 ??F) (Temporal) Resp 18 Ht 154.9 cm (5' 0.98) Wt 78.8 kg (173 lb 12.8 oz) SpO2 98% BMI 32.86 kg/m?? Pathology: 02/28/19 I - Outside slide(s) labeled [id number], collection date 02/28/2019. A - Needle biopsies: ??Right breast, 10 o'clock Diagnosis: ?Invasive ductal carcinoma Microcalcifications: ??N/A ER, RI, and HER2 studies (by report): ER: Positive (>90%, strong) RI: Positive (25%, moderate to strong) HER2 IHC: Negative (score 0) B - Needle biopsies: ??Right breast, 9 o'clock Diagnosis: ?Invasive ductal carcinoma Microcalcifications: ??N/A ER, RI, and HER2 studies (by report): ER: Positive (>90%, strong) RI: Positive (50%, moderate to strong) HER2 IHC: Negative (score 0) 04/04/19 A - Right breast, total mastectomy: - Invasive ductal carcinoma, two foci (see Synoptic Report and Discussion) - Ductal carcinoma in-situ - Fibrocystic changes B - Adel lymph node #1, excision: Two lymph nodes positive for metastatic carcinoma (12/16) Synoptic Report Specimen ?Procedure: ??Total mastectomy ?Specimen Laterality: ?? Right Tumor ?Histologic Type: ?? Invasive carcinoma of no special type (ductal, not ? otherwise specified) ?Histologic Grade (Faucett Histologic Score) ? Glandular (Acinar) / Tubular Differentiation: ?Score 3 ? Nuclear Pleomorphism: ?? Score 2 ? Number of Mitoses per 10 High-Power Hart: ?10 mitotic figures ? Diameter of Microscope Field in Millimeters (mm): ?0.55 mm ? Mitotic Rate: ?? Score 2 (4-7 mitoses per mm2) ? Overall Grade: ?? Grade 2 (scores of 6 or 7) ?Tumor Size: ?? 24 Millimeters (mm) ?Tumor Focality: ?? Multiple foci of invasive carcinoma ? Number of Foci: ?? 2 ? Sizes of Individual Foci: ?? 24 mm, 10 mm ?Ductal Carcinoma In Situ (DCIS): ?Present ? Ductal Carcinoma In Situ (DCIS): ?? Negative for extensive intraductal ?component (EIC) [id number] ? Location: [facility] The signing pathologist has (i) examined the relevant preparation(s) for the specimen(s) and (ii) rendered or confirmed the diagnosis(es). . ? Surgical Pathology DIAGNOSIS CONSULTATION CASE I - Outside slide(s) labeled [id number], collection date 02/28/2019. A - Needle biopsies: ??Right breast, 10 o'clock Diagnosis: ?Invasive ductal carcinoma Microcalcifications: ??N/A ER, RI, and HER2 studies (by report): ER: Positive (>90%, strong) RI: Positive (25%, moderate to strong) HER2 IHC: Negative (score 0) B - Needle biopsies: ??Right breast, 9 o'clock Diagnosis: ?Invasive ductal carcinoma Microcalcifications: ??N/A ER, RI, and HER2 studies (by report): ER: Positive (>90%, strong) RI: Positive (50%, moderate to strong) HER2 IHC: Negative (score 0) II - Outside slide(s) labeled [id number], collection date 04/04/2019. A - Right breast, total mastectomy: - Invasive ductal carcinoma, two foci (see Synoptic Report and Discussion) - Ductal carcinoma in-situ - Fibrocystic changes B - Adel lymph node #1, excision: Two lymph nodes positive for metastatic carcinoma (2/2) Synoptic Report Specimen ?Procedure: ??Total mastectomy ?Specimen Laterality: ?? Right Tumor ?Histologic Type: ?? Invasive carcinoma of no special type (ductal, not ? otherwise specified) ?Histologic Grade (Cally Histologic Score) ? Glandular (Acinar) / Tubular Differentiation: ?Score 3 ? Nuclear Pleomorphism: ?? Score 2 ? Number of Mitoses per 10 High-Power Hart: ?10 mitotic figures ? Diameter of Microscope Field in Millimeters (mm): ?0.55 mm ? Mitotic Rate: ?? Score 2 (4-7 mitoses per mm2) ? Overall Grade: ?? Grade 2 (scores of 6 or 7) ?Tumor Size: ?? 24 Millimeters (mm) ?Tumor Focality: ?? Multiple foci of invasive carcinoma ? Number of Foci: ?? 2 ? Sizes of Individual Foci: ?? 24 mm, 10 mm ?Ductal Carcinoma In Situ (DCIS): ?Present ? Ductal Carcinoma In Situ (DCIS): ?? Negative for extensive intraductal ?component (EIC) . DIAGNOSIS ? Architectural Patterns: ?? Solid ? Nuclear Grade: ?? Grade II (intermediate) ? Necrosis: ??Present, central (expansive comedo necrosis) ?Tumor Extent ? Skin: ??Invasive carcinoma does not invade into the dermis or epidermis ? Skeletal Muscle: ?? No skeletal muscle is present ?Accessory Findings ? Lymphovascular Invasion: ?? Cannot be determined - Extensive fixation/ ? retraction artifact present ? Treatment Effect: ?? No known presurgical therapy Margins ?Invasive Carcinoma Margins: ?? Uninvolved by invasive carcinoma ? Distance from Other Specified Margin: ?All margins >2??Millimeters (mm) ?DCIS Margins: ?? Uninvolved by DCIS ? Distance of DCIS to Anterior Margin: ?2 Millimeters (mm) Lymph Nodes ?Regional Lymph Nodes: ?? Involved by tumor cells ? Number of Lymph Nodes with Macrometastases: ?2 ? Number of Lymph Nodes with Micrometastases: ?0 ? Number of Lymph Nodes with Isolated Tumor Cells: ?0 ? Size of Largest Metastatic Deposit: ?17 Millimeters (mm) ? Extranodal Extension: ?? Cannot be determined ? Number of Adel Nodes Examined: ?2 Pathologic Stage Classification (pTNM, AJCC 8th Edition) ?TNM Descriptors: ?? m (multiple foci of invasive carcinoma) ?Primary Tumor (Invasive Carcinoma) (pT): ?pT2 ?Regional Lymph Nodes (pN) ? Modifier: ??(sn): Only sentinel node(s) evaluated. Category (pN): ?? pN1a Tumor Block(s): ?? A7 9 o'clock tumor; ??A10 10 o'clock tumor DISCUSSION The two foci of invasive carcinoma have similar morphology. Labs: 09/23/2020 WBC 3.07, hemoglobin 13.1, platelet count 188, ANC 1.89, sodium 144, potassium 3.4,BUN 20, creatinine 0.79, glucose 71, calcium 8.8, TB 0.5, AST 17, ALT 22, alkaline phosphatase 64, total protein 6.9, albumin 3.5, Imagin06/11/2020 mammogram: Negative mammogram. 02/25/2020 DEXA scan: Total hip T score 1.1, normal Assessment and Plan: Diagnosis: R IDC 2 foci 24 mm and 10 mm, ER+/RI+ HER2 neg, Gr2, mrg neg, SN 2/2, [id number] Treatment: - 04/04/19 right breast mastectomy with sentinel lymph node biopsy Dr. Hull -05/16/19 - 07/03/19 4 cycles of AC -07/16/19 - 10/02/2019 weekly Taxol. -10/22/19 - 12/04/19 adjuvant XRT -01/01/20 8 letrozole 2.5 mg a day Mammogram is negative. CHASTITY Gabriel is currently on aromatase inhibitor letrozole 2.5mg daily. Mild body achiness intermittently.Over lucero, she tolerates treatment well. She will stay on therapy for 5-10 years. #Peripheral neuropathy: Grade 1. No affecting her day to day activities. #Bone Health: Baseline DEXA scan done on 02/25/20- normal. No fracture risk. Discussed calcium and vitamin D supplements. Encouraged weight bearing exercise to maintain bone health. #Hypokalemia- K+-3.4 Secondary to HCTZ #Leukopenia: Mild, will monitor #Mediport removal: We will refer to surgeon Plan: 1. Continue letrozole 2.5 mg a day. 2. Referral to surgeon Dr. Hull for Mediport removal 3. Next visit with CBC and CMP in 6 months The plan was discussed with the patient in details. All questions were answered to patient's satisfaction. I would like to thank Dr. 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
--- OUTSIDE RECORDS SUMMARY | 2022-06-18 00:28 | XMS_ITS | Encounter Summary ---
:1950 Author Organization [facility] [place] [address] Care Team Providers Name Role Phone Mary Chinchilla APRN Primary Care Provider Reason for Visit Reason Comments Follow-up Encounter Details Date Type Department Care Team Description 09/29/2021 Office Visit Hematology/Oncology Chidi Gorman MD [facility] DR HEMATOLOGY/[place] [address] Hormone receptor positive malignant neop lasm of breast, unspecified laterality (Primary Dx); [facility] [address] [place] [address] [place] [address] Breast cancer metastasized to axillary l ymph node, unspecified laterality; [facility] [address]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; [place], [place] Peripheral polyneuropathy [id number] Social History Tobacco Use Types Packs/Day Years Used Date Never Smoker Smokeless Tobacco: Never Used Alcohol Use Standard Drinks/Week Comments Not Currently 0 (1 standard drink = 0.6 oz pure alcoho l) Sex Assigned at Date Recorded Not on file documented as of this encounter Last Filed Vital Signs Vital Sign Reading Time Taken Comments Blood Pressure 143/69 09/29/2021 8:57 AM EST Pulse 78 09/29/2021 8:57 AM EST Temperature 36 ??C (96.8 ??F) 09/29/2021 8:57 AM EST Respiratory Rate 16 09/29/2021 8:57 AM EST Oxygen Saturation 100% 09/29/2021 8:57 AM EST Inhaled Oxygen Concentration - - Weight 84.4 kg (186 lb) 09/29/2021 8:57 AM EST Height 152.4 cm (5') 09/29/2021 8:57 AM EST Body Mass Index 36.33 09/29/2021 8:57 AM EST documented in this encounter Progress Notes Minor Gorman MD - 09/29/2021 9:00 AM EST Diagnosis: R IDC 2 foci 24 mm and 10 mm, ER+/AR+ HER2 neg, Gr2, mrg neg, [id number] Subjective: I feel fine HPI: Oncology history -02/15/19 screening mammogram highly suspicious for malignancy - 02/21/19 right mammo and US hypoechoic 2.2 cm spiculated mass 9:00 5 cm from the nipple +3 hypoechoic spiculated masses in the right breast - 02/28/19 Dr. Dot Hull performed biopsy Pathology IDC, ER+ 90% AR 25-50%, HER2 IHC 0 -04/04/19 right breast mastectomy with sentinel lymph node biopsy Dr. Hull -05/16/19 satrted dd AC. Interval history(09/29/21): Ms. Rueda is in clinic for follow-up of breast cancer. Currently she frankie daily letrozole. Tolerates it well. She is tolerating the therapy well. Overall she has been feeling well. . No pain. She gets some twinges of pain/discomfort at her surgical site and in the right axilla but they are infrequent. No changes in pattern of discomfort. 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 No new illnesses or hospitalizations since we saw her last. No other focal complaints. 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 Has 3 children. Family History: No interval changes since last [...] Musculoskeletal: Negative. Skin: Negative. Neurological: Numbness in fingertips. Feet get cold. Hematological: Negative for adenopathy. PE: General: AAAx3, [...] Chest Wall: Breast exam: Right breast is surgically absent. Well healed scar. Hyperpigmentation changes to skin. No masses or tenderness of palpation. No right axillary adenopathy. Left breast normal in appearance. No masses on palpation. No left axillary adenopathy. No nipple inversion, skin dimplingor nipple drainage. No masses or lumps in the left breast. Examination in the presence of EDE Donis. Heart: Regular rate and rhythm, S1, S2 normal, no murmur, rub or gallop Abdomen: Soft, non-tender, bowel sounds active all four quadrants, no masses, no organomegaly. Thereis no appreciable ascites Extremities: Extremities normal, atraumatic, no cyanosis or edema Pulses: 2+ and symmetric Skin: Skin discoloration on face and hands, dry skin Lymph nodes: Cervical, supraclavicular, and axillary nodes normal Neurologic: Normal Vitals BP 143/69 (Patient Position: Sitting) Pulse 78 Temp 36 ??C (96.8 ??F) (Temporal) Resp 16 Ht 152.4 cm (5') Wt 84.4 kg (186 lb) SpO2 100% BMI 36.33 kg/m?? Pathology: 02/28/19 I - Outside slide(s) labeled [id number], collection date 02/28/2019. A - Needle biopsies: ??Right breast, 10 o'clock Diagnosis: ?Invasive ductal carcinoma Microcalcifications: ??N/A ER, AR, and HER2 studies (by report): ER: Positive (>90%, strong) AR: Positive (25%, moderate to strong) HER2 IHC: Negative (score 0) B - Needle biopsies: ??Right breast, 9 o'clock Diagnosis: ?Invasive ductal carcinoma Microcalcifications: ??N/A ER, AR, and HER2 studies (by report): ER: Positive (>90%, strong) AR: Positive (50%, moderate to strong) HER2 IHC: Negative (score 0) 04/04/19 A - Right breast, total mastectomy: - Invasive ductal carcinoma, two foci (see Synoptic Report and Discussion) - Ductal carcinoma in-situ - Fibrocystic changes B - [place] lymph node #1, excision: Two lymph nodes positive for metastatic carcinoma (2/) Synoptic Report Specimen ?Procedure: ??Total mastectomy ?Specimen [...] ?? Negative for extensive intraductal ?component (EIC) [id number] ? Location: [facility] ? Surgical Pathology DIAGNOSIS CONSULTATION CASE I - Outside slide(s) labeled [id number], collection date 02/28/2019. A - Needle biopsies: ??Right breast, 10 o'clock Diagnosis: ?Invasive ductal carcinoma Microcalcifications: ??N/A ER, AR, and HER2 studies (by report): ER: Positive (>90%, strong) AR: Positive (25%, moderate to strong) HER2 IHC: Negative (score 0) B - Needle biopsies: ??Right breast, 9 o'clock Diagnosis: ?Invasive ductal carcinoma Microcalcifications: ??N/A ER, AR, and HER2 studies (by report): ER: Positive (>90%, strong) AR: Positive (50%, moderate to strong) HER2 IHC: Negative (score 0) II - Outside slide(s) labeled [id number], collection date 04/04/2019. A - Right breast, total mastectomy: - Invasive ductal carcinoma, two foci (see Synoptic Report and Discussion) - Ductal carcinoma in-situ - Fibrocystic changes B - [place] lymph node #1, excision: Two lymph nodes [...] ?? Cannot be determined ? Number of [place] Nodes Examined: ?2 Pathologic Stage Classification (pTNM, AJCC 8th Edition) ?TNM Descriptors: ?? m (multiple foci of invasive carcinoma) ?Primary Tumor (Invasive Carcinoma) (pT): ?pT2 ?Regional Lymph Nodes (pN) ? Modifier: ??(sn): Only sentinel node(s) evaluated. Category (pN): ?? pN1a Tumor Block(s): ?? A7 9 o'clock tumor; ??A10 10 o'clock tumor DISCUSSION The two foci of invasive carcinoma have similar morphology. Labs: CBC and CMP are pending 04/07/21- WBC-5.04 Hgb/Hct-13.5/40.0 Plt-212 ANC-2.80 Na-143 K+-3.2 BUN/cr-25/0.9 Glucose-84 Ca-9.2 T. Bili-0.4 Ast-14 ALT-24 Alk phos-72 Albumin-3.8 09/23/2020 WBC 3.07, hemoglobin 13.1, platelet count 188, ANC 1.89, sodium 144, potassium 3.4, BUN 20, creatinine 0.79, glucose 71, calcium 8.8, TB 0.5, AST 17, ALT 22, alkaline phosphatase 64, total protein 6.9, albumin 3.5, Imagin06/29/2021 screening mammogram of left breast: Impression: No radiographic evidence of malignancy in the left breast. 06/11/2020 mammogram: Negative mammogram. 02/25/2020 DEXA scan: Total hip T score 1.1, normal Assessment and Plan: Diagnosis: R IDC 2 foci 24 mm and 10 mm, ER+/AR+ HER2 neg, Gr2, mrg neg, SN 2/2, [id number] Treatment: - 04/04/19 right breast mastectomy with sentinel lymph node biopsy Dr. Hull -05/16/19 - 07/03/19 4 cycles of AC -07/16/19 - 10/02/2019 weekly Taxol. -10/22/19 - 12/04/19 adjuvant XRT -01/01/20 letrozole 2.5 mg a day Nery is currently on aromatase inhibitor letrozole 2.5mg daily. She tolerates treatment well. . She will stay on therapy for 5-10 years. No clinical evidence of disease on exam today. Last mammogram in June 2021 was negative. #Peripheral neuropathy: Grade 1. No affecting her day to day activities. #Bone Health: Baseline DEXA scan done on 4/13/20- normal. No fracture risk. Discussed calcium and vitamin D supplements. Encouraged weight bearing exercise to maintain bone health. #Hypokalemia- K+-3.2 Secondary to HCTZ. Start Kdur 10meq daily. Follow up with PCP. #Leukopenia: Resolved. Plan: 1. Continue letrozole 2.5 mg a day. 2. Next visit with CBC and CMP in 6 months. Nery voiced understanding of the plan and was given an opportunity to ask questions which I answered to the best of my ability. Nery understands he can call the clinic between visits with any questions/concerns or new symptoms. \ documented in this encounter Plan of Treatment Scheduled Orders Name Type Priority Associated Diagnoses Order S chedule CBC (with Diff) Lab Routine Hormone receptor Expected : 03/29/2022 positive malignant (Approxim ate), neoplasm of breast, Expires: 09/28/2022 unspecified laterality Comprehensive metabolic Lab Routine Hormone receptor Expected: 03/29/2022 panel (non-fasting) positive malignant (A pproximate), neoplasm of breast, Expires: 09/28/2022 unspecified laterality documented as of this encounter Visit Diagnoses Diagnosis Hormone receptor positive malignant neop lasm of breast, unspecified laterality - Primary Breast cancer metastasized to axillary l ymph node, unspecified laterality 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
--- OUTSIDE RECORDS SUMMARY | 2022-06-18 00:28 | XMS_ITS | Encounter Summary ---
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, unspecified laterality; [facility] [address] [place] [address] [place] [address] Breast cancer metastasized to axillary l ymph node, unspecified laterality; [address] [place] [address] Asymptomatic menopausal stat e; [place], [place] halfway c urrent use of aromatase inhibitor [id number] Social History Tobacco Use Types Packs/Day Years Used Date Never Smoker Smokeless Tobacco: Never Used Alcohol Use Standard Drinks/Week Comments Not Currently 0 (1 standard drink = 0.6 oz pure alcoho l) Sex Assigned at Date Recorded Not on file documented as of this encounter Progress Notes Minor Gorman MD - 12/18/2019 2:00 PM EST Diagnosis: 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 Dot Hull performed biopsy Pathology IDC, ER+ 90% WA 25-50%, HER2 IHC 0 -04/04/19 right breast mastectomy with sentinel lymph node biopsy Dr. Hull -05/16/19 satrted [facility]. Interval history: Ms. Rueda is in clinic for follow-up appointment on breast cancer. Nery completed adjuvant radiation therapy on December 04. Her skin is still healing. She still does have mild numbness and tingling can his fingertips and feet, which do not interfere with her daily activities.. Denies any nausea, vomiting, fever, chills or pain. Denies shortness of breath. PMH: No interval changes since last visit [...] file Gets together: Not on file Attends tenriism service: Not on file Active member of [...] Negative. Skin: Negative. Neurological: Numbness in fingertips Hematological: Negative for adenopathy. PE: General: AAAx3, in NAD Head: Normocephalic, without obvious abnormality, atraumatic Eyes: PERRL, conjunctiva/corneas clear, EOM's intact, fundi benign, both eyes Ears: Normal TM's and external ear canals, both ears Nose: Nares normal, septum midline, mucosa normal, no drainage or sinus tenderness Throat: Lips, mucosa, and tongue normal; teeth and gums normal Neck: Supple, symmetrical, trachea midline, no adenopathy, thyroid: not enlarged, symmetric, no tenderness/mass/nodules, no carotid bruit or JVD Back: Symmetric, no curvature, ROM normal, no CVA tenderness Lungs: Clear to auscultation bilaterally, respirations unlabored Chest Wall: Healing surgical incision on the right. Tender to palpation. No masses or lumps in the left breast. Examination was done in presence of EDE Donis. no tenderness or deformity Heart: Regular rate and rhythm, S1, S2 normal, no murmur, rub or gallop Abdomen: Soft, non-tender, bowel sounds active all four quadrants, no masses, no organomegaly. Thereis no appreciable ascites Extremities: Extremities normal, atraumatic, no cyanosis or edema Pulses: 2+ and symmetric Skin: Skin discoloration on face and hands, dry skin Lymph nodes: Cervical, supraclavicular, and axillary nodes normal Neurologic: Normal Vitals Oncology Vitals 12/18/2019 Weight (kg) 74.662 kg Weight (lb) 164 lb 9.6 oz Height BSA (Calculated - sq m) BMI (Calculated) Temp 97.9 Temp src 1 Pulse 78 Heart Rate Source Resp 18 BP 149/68 BP Location Left arm Patient Position Sitting SpO2 100 Pain Level 0 Pathology: 02/28/19 I - Outside slide(s) labeled [id number], collection date 02/28/2019. A - Needle biopsies: ??Right breast, 10 o'clock Diagnosis: ?Invasive ductal carcinoma Microcalcifications: ??N/A ER, WA, and HER2 studies (by report): ER: Positive (>90%, strong) WA: Positive (25%, moderate to strong) HER2 IHC: Negative (score 0) B - Needle biopsies: ??Right breast, 9 o'clock Diagnosis: ?Invasive ductal carcinoma Microcalcifications: ??N/A ER, WA, and HER2 studies (by report): ER: Positive (>90%, strong) WA: Positive (50%, moderate to strong) HER2 IHC: Negative (score 0) 04/04/19 A - Right breast, total mastectomy: - Invasive ductal carcinoma, two foci (see Synoptic Report and Discussion) - Ductal carcinoma in-situ - Fibrocystic changes B - [place] lymph node #1, excision: Two lymph nodes [...] ?? Negative for extensive intraductal ?component (EIC) [id number] ? Location: [facility] The signing pathologist has (i) examined the relevant preparation(s) for the specimen(s) and (ii) rendered or confirmed the diagnosis(es). . ? Surgical Pathology DIAGNOSIS CONSULTATION CASE I - Outside slide(s) labeled [id number], collection date 02/28/2019. A - Needle biopsies: ??Right breast, 10 o'clock Diagnosis: ?Invasive ductal carcinoma Microcalcifications: ??N/A ER, WA, and HER2 studies (by report): ER: Positive (>90%, strong) WA: Positive (25%, moderate to strong) HER2 IHC: Negative (score 0) B - Needle biopsies: ??Right breast, 9 o'clock Diagnosis: ?Invasive ductal carcinoma Microcalcifications: ??N/A ER, WA, and HER2 studies (by report): ER: Positive (>90%, strong) WA: Positive (50%, moderate to strong) HER2 IHC: Negative (score 0) II - Outside slide(s) labeled [id number], collection date 04/04/2019. A - Right breast, total mastectomy: - Invasive ductal carcinoma, two foci (see Synoptic Report and Discussion) - Ductal carcinoma in-situ - Fibrocystic changes B - [place] lymph node #1, excision: Two lymph nodes [...] ?? Cannot be determined ? Number of [place] Nodes Examined: ?2 Pathologic Stage Classification (pTNM, AJCC 8th Edition) ?TNM Descriptors: ?? m (multiple foci of invasive carcinoma) ?Primary Tumor (Invasive Carcinoma) (pT): ?pT2 ?Regional Lymph Nodes (pN) ? Modifier: ??(sn): Only sentinel node(s) evaluated. Category (pN): ?? pN1a Tumor Block(s): ?? A7 9 o'clock tumor; ??A10 10 o'clock tumor DISCUSSION The two foci of invasive carcinoma have similar morphology. Labs: 12/18/2019 WBC 3.49, hemoglobin 12.7, platelet count 216, ANC 2.38 sodium 142, potassium 3.4, BUN 16, creatinine 1.76, calcium 8.58, total bilirubin 0.3, AST 22, ALT 28, alkaline phosphatase 49, total protein 6.7, albumin 3.5, 10/02/2019 sodium 139, potassium 3.5, BUN 15, creatinine 0.85, calcium 9.2, TB 0.4, AST 27, ALT 55, alkaline phosphatase 57, total protein 7.1, albumin 3.9 WBC 2.63, hemoglobin 9.9, platelet count 257,ANC 1.49 09/25/2019 sodium 143, potassium 3.9, ALT 70.7, TB 0.4, 58, 0.5, WBC 2.53, hemoglobin 10.1, plateletcount 265, ANC 1.55. 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 Hull -05/16/19 - 07/03/19 4 cycles of AC -07/16/19 - 10/02/2019 weekly Taxol. -10/22/19 - 12/04/19 adjuvant XRT We discussed prognosis of breast cancer. According to [employer] tool chemotherapy with dose dense AC-T and hormonal therapy with aromatase inhibitor will decrease chances today from breast cancer within the next 15 years from 27 down to 13.4%. Cancer Mortality: 13.4% expected 15-year Cancer Rate. 15.3% 15-year Correia-Melody cancer rate Life Expectancy: Without therapy, this cancer shortens the life expectancy of a 67-year-old woman by 4.5 years. (from18.4 years to 13.9 years Therapy benefit: The therapy selected would improve average life expectancy by 2.6 years, or 962 days over expectancy without therapy. 59.2% fewer cancer deaths after 15 years Nery completed adjuvant radiation therapy 2 weeks ago. Her skin is still healing. We discussed benefits and risks of aromatase inhibitor letrozole 2.5 mg a day for total of 5-10 years. Aromatase inhibitor will decrease chances of cancer recurrence by about a third. We discussed side effects which include but not limited to hot flashes, vaginal dryness, musculoskeletal pain, osteoporosis, all questions were answered to patient satisfaction. She is interested to proceed with letrozole. Informed verbal consent was obtained. #Peripheral neuropathy: Grade 1 #DEXA scan: We will obtain new baseline DEXA scan Plan: 1. Start letrozole 2.5 mg a day in 2 weeks 2. 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
--- OUTSIDE RECORDS SUMMARY | 2022-06-18 00:28 | XMS_ITS | Encounter Summary ---
:1950 Author Organization [facility] [place] [address] Care Team Providers Name Role Phone Mary Chinchilla APRN Primary Care Provider Encounter Details Date Type Department Care Team Description 06/11/2020 Ancillary Procedure Radiology Library at Adry Chinchilla [facility] [address] [place] [id number] [phone] (Wo rk) Social History Tobacco Use Types [...] Associated Diagnosis Comme nts FILM LIBRARY Routine 06/11/2020 12:00 AM Results for this STORAGE ONLY MAMMO EDT procedure are in the results section. documented in this encounter Results Film Library- Storage Only Mammo (06/11/2020 12:00 AM EDT) Specimen (Source) Anatomical Location Collection Method / Collectio n Time Received Time / Laterality Volume Narrative RAD - 09/24/2021 12:48 PM EST This exam is auto-finalizing. It's purpo se is for storage only. Mary Chinchilla APRN G FILM LIBRARY ORDERABLES Performing Organization Address City/State/ZIP Code Phon e Number RAD [place], [place] documented in this encounter Visit Diagnoses Not on filedocumented in this encounter Care Teams Devulcanizer Charger Relationship Specialty Start Date End Date Mary Chinchilla APRN PCP - General Geriatric Medicine 04/24/[address] [place] [address] documented as of this encounter
--- OUTSIDE RECORDS SUMMARY | 2022-06-18 00:28 | XMS_ITS | Encounter Summary ---
:1950 [place] [address] Care Team Providers Name Role Phone Mary Chinchilla APRN Primary Care Provider Encounter Details Date Type Department Care Team Description 03/30/2022 Office Visit Hematology/Oncology [facility] east 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, unspecified laterality; at 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 [address] [place] [phone] HEMATOLOGY/ONCOLOG [phone] [place], [place] [address] Social History Tobacco Use Types Packs/Day Years Used Date Never Smoker Smokeless Tobacco: Never Used Alcohol Use Standard Drinks/Week Comments Not Currently 0 (1 standard drink = 0.6 oz pure alcoho l) Sex Assigned at Date Recorded Not on file documented as of this encounter Last Filed Vital Signs Vital Sign Reading Time Taken Comments Blood Pressure 144/76 03/30/2022 12:52 PM EDT Pulse 86 03/30/2022 12:52 PM EDT Temperature 36.2 ??C (97.2 ??F) 03/30/2022 12:52 PM EDT Respiratory Rate 18 03/30/2022 12:52 PM EDT Oxygen Saturation 100% 03/30/2022 12:52 PM EDT Inhaled Oxygen Concentration - - Weight 83.4 kg (183 lb 12.8 oz) 03/30/2022 12:52 PM EDT Height 152.4 cm (5') 03/30/2022 12:52 PM EDT Body Mass Index 35.9 03/30/2022 12:52 PM EDT documented in this encounter Patient Instructions Patient InstructionsAmita Hinds APRN - 03/30/2022 1:43 PM EDT She will return for followup in 6 months with labs and bone density prior. documented in this encounter Progress Notes Amita Hinds APRN - 03/30/2022 1:00 PM EDT Diagnosis: R IDC 2 foci 24 mm and 10 mm, ER+/OH+ HER2 neg, Gr2, mrg neg, [id number] Subjective: I feel fine HPI: Oncology history -02/15/19 screening mammogram highly suspicious for malignancy - 02/21/19 right mammo and US hypoechoic 2.2 cm spiculated mass 9:00 5 cm from the nipple +3 hypoechoic spiculated masses in the right breast - 02/28/19 Dr. Dot Hull performed biopsy Pathology IDC, ER+ 90% OH 25-50%, HER2 IHC 0 -04/04/19 right breast mastectomy with sentinel lymph node biopsy Dr. Hull -05/16/19 satrted [facility]. Interval history//): Nery is here today for a routine 6 month followup. She continues to take her letrozole on a daily basis. She is not having any side effects from it. She states that she had a cold this winter but otherwise was well. 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 She has occasional pain in her right thigh on the front. It comes and goes and walking seems to make it better. Her neuropathy is unchanged. No new illnesses or hospitalizations since her last visit. She denies any pain other than the above mentioned. ROS is otherwise negative. Interval history(09/29/21): Ms. Rueda is in clinic [...] for dysuria and difficulty urinating. Musculoskeletal: Negative. Except for pain in right thigh ( see above) Skin: Negative. Neurological: Numbness in fingertips. Feet get cold. Unchanged. Hematological: Negative for adenopathy. PE: General: AAAx3, [...] breast is surgically absent. Well healed scar. Changes to skin consistent with radiation treatment. No masses or tenderness of palpation. No [...] axillary nodes normal Neurologic: Normal Vitals BP 144/76 (Patient Position: Sitting) Pulse 86 Temp 36.2 ??C (97.2 ??F) (Temporal) Resp18 Ht 152.4 cm (5') Wt 83.4 kg (183 lb 12.8 oz) SpO2 100% BMI 35.90 kg/m?? Clinically she is quite stable Pathology: 02/28/19 I - Outside slide(s) labeled [id number], collection date 02/28/2019. A - Needle biopsies: ??Right breast, 10 o'clock Diagnosis: ?Invasive ductal carcinoma Microcalcifications: ??N/A ER, OH, and HER2 studies (by report): ER: Positive (>90%, strong) OH: Positive (25%, moderate to strong) HER2 IHC: Negative (score 0) B - Needle biopsies: ??Right breast, 9 o'clock Diagnosis: ?Invasive ductal carcinoma Microcalcifications: ??N/A ER, OH, and HER2 studies (by report): ER: Positive (>90%, strong) OH: Positive (50%, moderate to strong) HER2 IHC: Negative (score 0) 04/04/19 A - Right breast, total mastectomy: - Invasive ductal carcinoma, two foci (see Synoptic Report and Discussion) - Ductal carcinoma in-situ - Fibrocystic changes B - [place] lymph node #1, excision: Two lymph nodes positive for metastatic carcinoma (/) Synoptic Report Specimen ?Procedure: ??Total mastectomy ?Specimen [...] ?? Negative for extensive intraductal ?component (EIC) [id number] ? Location: [facility] ? Surgical Pathology DIAGNOSIS CONSULTATION CASE I - Outside slide(s) labeled [id number], collection date 02/28/2019. A - Needle biopsies: ??Right breast, 10 o'clock Diagnosis: ?Invasive ductal carcinoma Microcalcifications: ??N/A ER, OH, and HER2 studies (by report): ER: Positive (>90%, strong) OH: Positive (25%, moderate to strong) HER2 IHC: Negative (score 0) B - Needle biopsies: ??Right breast, 9 o'clock Diagnosis: ?Invasive ductal carcinoma Microcalcifications: ??N/A ER, OH, and HER2 studies (by report): ER: Positive (>90%, strong) OH: Positive (50%, moderate to strong) HER2 IHC: Negative (score 0) II - Outside slide(s) labeled [id number], collection date 04/04/2019. A - Right breast, total mastectomy: - Invasive ductal carcinoma, two foci (see Synoptic Report and Discussion) - Ductal carcinoma in-situ - Fibrocystic changes B - [place]es lymph node #1, excision: Two lymph nodes positive for metastatic carcinoma (2/2) Synoptic Report Specimen ?Procedure: ??Total mastectomy ?Specimen Laterality: ?? Right Tumor ?Histologic Type: ?? Invasive carcinoma of no special type (ductal, not ? otherwise specified) ?Histologic Grade ([place] Histologic Score) ? Glandular (Acinar) / Tubular [...] ?? Cannot be determined ? Number of [place]es Nodes Examined: ?2 Pathologic Stage Classification (pTNM, [...] have similar morphology. Labs: CBC and CMP 03/29/22 WBC 4.84 H/H 13.3/40.3 Plts 245 ANC 3.05 BUN/Cr 28/0.9 lfts normal as well as Na and K+ 04/07/21- WBC-5.04 Hgb/Hct-13.5/40.0 Plt-212 ANC-2.80 Na-143 K+-3.2 [...] the left breast. 06/11/2020 mammogram: Negative mammogram. 06/29/21 Mammogram No radiographic evidence of malignancy in left breast. Right mastectomy Due again in June 2022 02/25/2020 DEXA scan: Total hip T score 1.1, normal Due for DEXA scan again this year. Assessment and Plan: Diagnosis: R IDC 2 foci 24 mm and 10 mm, ER+/OH+ HER2 neg, Gr2, mrg neg, SN 2/2, [id number] Treatment: - 04/04/19 right breast mastectomy with sentinel lymph node biopsy Dr. Hull -05/16/19 - 07/03/19 4 cycles of AC -07/16/19 - 10/02/2019 weekly Taxol. -10/22/19 - 12/04/19 adjuvant XRT -01/01/20 letrozole 2.5 mg a day Nery is currently on aromatase inhibitor letrozole 2.5mg daily. She tolerates treatment well. She will stay on therapy for 5-10 years. This will be discussed again at the 5 yr time point as to whether or not to continue with this treatment. No clinical evidence of disease on exam today. Last mammogram in June 2021 was negative. Will haveanother mammogram in June. #Peripheral neuropathy: Grade 1. No affecting her day to day activities. #Bone Health: Baseline DEXA scan done on 02/25/20- normal. No fracture risk. Discussed calcium and vitamin D supplements. Encouraged weight bearing exercise to maintain bone health. She will repeat DEXAagain this year. #Hypokalemia- resolved on new diuretic. #Leukopenia: Resolved. Plan: 1. Continue letrozole 2.5 mg a day. 2. Next visit with CBC and CMP in 6 months. 3. She will also have a mammogram again in June and DEXA scan prior to her next visit. All questions were asked and answered. She is comfortable with this plan. She knows to call should she have any issues or concerns prior to her next appointment. 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 Comprehensive metabolic Lab Routine Breast cancer Exp ected: panel (non-fasting) metastasized to axill renetta 09/30/2022 lymph node, unspecified (Jose Luis roximate), laterality Expires: 03/30/2023 Hormone receptor positive malignant neoplasm of right breast DXA Central Spine, Hip, Imaging Routine Breast cancer Exp ected: and/or Whole Body metastasized to axillar y 09/30/2022, (Generic) lymph node, unspecified Expi res: 03/30/2023 laterality Hormone receptor positive malignant neoplasm of right breast documented as of this encounter Visit Diagnoses Diagnosis Breast cancer metastasized to axillary l ymph node, unspecified laterality 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
--- OUTSIDE RECORDS SUMMARY | 2022-06-18 00:28 | XMS_ITS | Encounter Summary ---
:1950 [place] [address] Care Team Providers Name Role Phone Mary Chinchilla APRN Primary Care Provider Encounter Details Date Type Department Care Team Description 06/14/2022 Refill [facility] at [facility]tna receptor positive malignant neoplasm of breast, unspecified laterality; [facility] NIC Breast cancer metastasized to axillary l ymph node, unspecified laterality; [address] [place] [address] [place] [phone] RADIATION ONCOLOGY [phone] [place], [place] [address] (Wo rk) Social History Tobacco Use Types [...] to axillary l ymph node, unspecified laterality Hypokalemia Hypopotassemia documented in this encounter Care Teams Ui Lead Developer Relationship Specialty Start Date End Date Mary Chinchilla APRN PCP - General Geriatric Medicine 04/24/[address] [place], [place] [address] documented as of this encounter
--- OUTSIDE RECORDS SUMMARY | 2022-06-18 00:28 | XMS_ITS | Encounter Summary ---
:1950 [place] [address] Care Team Providers Name Role Phone Mary Chinchilla APRN Primary Care Provider Encounter Details Date Type Department Care Team Description 02/01/2020 Orders Only Hematology and Oncol ogy at [facility] [place] [phone] Social History Tobacco Use Types Packs/Day Years Used Date Never Smoker Smokeless Tobacco: Never Used Alcohol Use Standard Drinks/Week Comments Not Currently 0 (1 standard drink = 0.6 oz pure alcoho l) Sex Assigned at Date Recorded Not on file documented as of this encounter Plan of Treatment Not on filedocumented as of this encounter Visit Diagnoses Not on filedocumented in this encounter Care Teams Dining Room Maid Relationship Specialty Start Date End Date Mary Chinchilla APRN PCP - General Geriatric Medicine 04/24/[address] [place] [place] [address] documented as of this encounter
--- OUTSIDE RECORDS SUMMARY | 2022-06-18 00:28 | XMS_ITS | Encounter Summary ---
:1950 [place] [address] Care Team Providers Name Role Phone Mary Chinchilla APRN Primary Care Provider Encounter Details Date Type Department Care Team Description 12/04/2019 Orders Only Radiation Oncology at [facility], honorio Valente MD Malignant neoplasm of [facility] upper-outer quadrant [facility] [address] of right female Drive RADIATION ONCOLOGY [place], [place] [address] [place] [address] estrogen receptor [phone] status (Work) Social History Tobacco Use Types [...] status documented in this encounter Care Teams Electronic Component Processor Relationship Specialty Start Date End Date Mary Chinchilla APRN PCP - General Geriatric Medicine 04/24/[address] [place] [address] documented as of this encounter
--- OUTSIDE RECORDS SUMMARY | 2022-06-18 00:28 | XMS_ITS | Encounter Summary ---
:1950 Author Organization [facility] [place] [address] Care Team Providers Name Role Phone Mary Chinchilla APRN Primary Care Provider Reason for Visit Reason Onset Date Comments Follow-up 09/29/2021 Encounter Details Date Type Department Care Team Description 09/29/2021 Telephone Hematology/Oncology at Jewels Jones RN Follow-up [address] [phone] Social History Tobacco Use Types Packs/Day Years Used Date Never Smoker Smokeless Tobacco: Never Used Alcohol Use Standard Drinks/Week Comments Not Currently 0 (1 standard drink = 0.6 oz pure alcoho l) Sex Assigned at Date Recorded Not on file documented as of this encounter Miscellaneous Notes Telephone Encounter - Jewels Izaguirre RN - 09/29/2021 12:44 PM EST Called and left message for pt per Dr. Gorman that patients' labs were normal today. She will call with questions or concerns. documented in this encounter Plan of Treatment Not on filedocumented as of this encounter Visit Diagnoses Not on filedocumented in this encounter Care Teams Panel Machine Operator Relationship Specialty Start Date End Date Mary Chinchilla APRN PCP - General Geriatric Medicine 04/24/19 [address] [place], [place] [address] documented as of this encounter
--- OUTSIDE RECORDS SUMMARY | 2022-06-18 00:28 | XMS_ITS | Encounter Summary ---
:1950 Author Organization [place] [address] Care Team Providers Name Role Phone Mary Chinchilla APRN Primary Care Provider Encounter Details Date Type Department Care Team Description 11/20/2019 Office Visit Radiation Oncology at Nirav Valdes, Malignant neoplasm of [facility] upper-outer quadrant [address] [place] [address] Drive [facility] of right female [place], [place] breast, unspecified [phone] RADIATION ONCOLOGY estrogen receptor [phone] [place] [phone] status Social History Tobacco Use Types Packs/Day Years Used Date Never Smoker Smokeless Tobacco: Never Used Alcohol Use Standard Drinks/Week Comments Not Currently 0 (1 standard drink = 0.6 oz pure alcoho l) Sex Assigned at Date Recorded Not on file documented as of this encounter Last Filed Vital Signs Vital Sign Reading Time Taken Comments Blood Pressure 137/71 11/20/2019 9:39 AM EST Pulse 74 11/20/2019 9:39 AM EST Temperature 36.7 ??C (98.1 ??F) 11/20/2019 9:39 AM EST Respiratory Rate 16 11/20/2019 9:39 AM EST Oxygen Saturation 99% 11/20/2019 9:39 AM EST Inhaled Oxygen Concentration - - Weight 77.3 kg (170 lb 6.4 oz) 11/20/2019 9:39 AM EST Height - - Body Mass Index 32.21 10/02/2019 9:23 AM EST documented in this encounter Progress Notes Nirav Valdes MD - 11/20/2019 9:30 AM EST Images from the original note were not included. DIAGNOSIS: Breast ca, R, IDC, 2 foci, 24 mm & 10 mm, gr 2, both ER+PA+ & Her2 neg, s/p mastectomy & SNB, mpT2 pN1, s/p adjuvant chemo. CURRENT TREATMENT DOSE: 40 Gy R supraclav, R axilla, R IMC, R chest wall ANTICIPATED TOTAL DOSE: 50 Gy R supraclav, R axilla, R IMC, R chest wall; 60 Gy mastectomy scar Current # of xrt received: 20 Anticipated total # of xrt txs: 25 R supraclav, R axilla, R IMC, R chest wall; 30 mastectomy scar Evaluation of port verification films: Approved. For details, see electronic film record in [employer]. Changes in Medical Condition: Mild itching of skin. Mild tenderness of right upper arm, associated with raising arm over her head. Underwent MRI of L-spine on 11/09/19 at [facility]. This demonstrates indeterminate L2 VB lesion, with metastasis in DDx. Recommended bone scan as follow-up. Pain?: No Your Medications Accurate as of November 20, 2019 9:52 AM. If you have any questions, ask [...] than 2 hours beforea treatment. Refills: 0 hydroCHLOROthiazide 12.5 mg Tab Commonly [...] Quantity: 30 tablet Refills: 3 Physical Exam: There were no vitals taken for this visit. A&Ox3, NAD. Skin: Slight pinkening of skin of right back in field. Slightly more erythema in mid-sternal anterior right chest wall area, in field. Lungs CTA CV RRR No tenderness or masses. No adenopathy in right axilla or SC region. Well-healed incision site. Imagin10/02/19 Dx'ic Rad Interp CTsim: Indeterminate, ill-defined sclerotic focus w/in inferior L2 vertebral body, concerning for met osseous lesion. Rec correlation & further eval w/nuc med bone scan. Performance Status: KPS 100% Response to xrt: As expected. Irradiation Related Symptoms: Skin rxn. Treatment for Symptom Control: Continue with Bradley's cream. Pain Management: Not needed. Recommendation on Continuing Course of xrt: Cont. documented in this encounter Plan of Treatment Not on filedocumented as of this encounter Visit Diagnoses Diagnosis Malignant neoplasm of upper-outer quadra nt of right female breast, unspecified estrogen receptor status documented in this encounter Care Teams [place] Redevelopment Site Manager Relationship Specialty Start Date End Date Mary Chinchilla APRN PCP - General Geriatric Medicine 04/24/[address] [place] [place] [address] documented as of this encounter
--- OUTSIDE RECORDS SUMMARY | 2022-06-18 00:28 | XMS_ITS | Encounter Summary ---
:1950 Author Organization [facility] [address] Care Team Providers Name Role Phone Mary Chinchilla NIC Primary Care Provider Reason for Visit Reason Comments On Treatment Visit Encounter Details Date Type Department Care Team Description 11/27/2019 Office Visit Radiation Oncology at Jo Rae MD Malignant neoplasm of [facility] upper-outer quadrant [address] of right female [place], [place] RADIATION ONCOL OGY breast, unspecified [phone] [place] [address] estrogen receptor [phone] status (Work) Social History Tobacco Use Types Packs/Day Years Used Date Never Smoker Smokeless Tobacco: Never Used Alcohol Use Standard Drinks/Week Comments Not Currently 0 (1 standard drink = 0.6 oz pure alcoho l) Sex Assigned at Date Recorded Not on file documented as of this encounter Last Filed Vital Signs Vital Sign Reading Time Taken Comments Blood Pressure 131/71 11/27/2019 9:00 AM EST Pulse - - Temperature 36.4 ??C (97.5 ??F) 11/27/2019 9:00 AM EST Respiratory Rate 16 11/27/2019 9:00 AM EST Oxygen Saturation 98% 11/27/2019 9:00 AM EST Inhaled Oxygen Concentration - - Weight 76.6 kg (168 lb 12.8 oz) 11/27/2019 9:00 AM with shoes EST Height - - Body Mass Index 31.91 10/02/2019 9:23 AM EST documented in this encounter Progress Notes Chantelle Rae MD - 11/27/2019 9:30 AM EST Images from the original [...] R axilla, R IMC, R chest wall Anticipated total # of xrt txs: 25 R supraclav, R axilla, R IMC, R chest wall; 30 mastectomy scar Evaluation of port verification films: Approved. For details, see electronic film record in [employer]. Changes in Medical Condition: Mild itchiness of skin w/in irrad'd area, relieved by bradley's cream. Pain?: No Your Medications Accurate as of November 27, 2019 10:10 AM. If you have any questions, ask [...] 30 tablet Refills: 3 Physical Exam: BP 131/71 (Patient Position: Sitting) Temp 36.4 ??C (97.5 ??F) (Oral) Resp 16 Wt 76.6 kg (168 lb 12.8 oz) Comment: with shoes SpO2 98% BMI 31.91 kg/m?? A&Ox3, NAD. Mild to moderate erythema of irrad'd skin w/moderate folliculitis, mainly in R medial infraclav & supraclav, skin intact. Imagin10/02/19 Dx'ic Rad Interp CTsim: Indeterminate, ill-defined sclerotic focus w/in inferior L2 vertebral body, concerning for met osseous lesion. Rec correlation & further eval w/nuc med bone scan. Imagin11/09/19 MRI [facility] L[facility]spine at [facility]. This demonstrates indeterminate L2 VB lesion, with metastasis in DDx. Recommended bone scan as follow-up. 11/23/19 bone scan: Report unavailable. Performance Status: KPS 100% Response to xrt: As expected. Irradiation Related Symptoms: Skin rxn. Treatment for Symptom Control: Given mepilex-lite. Bradley's cream. Pain Management: Not needed. Recommendation on Continuing Course of xrt: Cont. Request bone scan report. documented in this encounter Plan of Treatment Not on filedocumented as of this encounter Visit Diagnoses Diagnosis Malignant neoplasm of upper-outer quadra nt of right female breast, unspecified estrogen receptor status documented in this encounter Care Teams Judo Teacher Relationship Specialty Start Date End Date Mary Chinchilla APRN PCP - General Geriatric Medicine 04/24/[address] [place] [address] documented as of this encounter
--- OUTSIDE RECORDS SUMMARY | 2022-06-18 00:28 | XMS_ITS | Encounter Summary ---
:1950 Author Organization [facility] [place] [address] Care Team Providers Name Role Phone Mary Chinchilla APRN Primary Care Provider Encounter Details Date Type Department Care Team Description 06/22/2021 [place] [address] Social History Tobacco Use Types Packs/Day Years Used Date Never Smoker Smokeless Tobacco: Never Used Alcohol Use Standard Drinks/Week Comments Not Currently 0 (1 standard drink = 0.6 oz pure alcoho l) Sex Assigned at Date Recorded Not on file documented as of this encounter Medications at Time of Discharge Medication Sig Dispensed Refills Start Date End Date irbesartan-hydrochlorothi Take 1 tablet by 0 /2 11/2020 azide (AVALIDE) 150-12.5 mouth daily. mg Tablet potassium chloride ER Take 1 tablet by 90 tablet 3 04/08/20 21 (K-DUR;KLOR-CON) 10 mEq mouth daily. Tab Sust.Rel. Particle/CrystalIndicatio ns: Hormone receptor positive malignant neoplasm of breast, unspecified laterality, Breast 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, unspecified laterality, Hypokalemia b complex vitamins Take 1 capsule by 0 Capsule mouth daily. ibuprofen (ADVIL;MOTRIN) Take 600 mg by mouth 4 0 04/05/2019 600 mg Tablet daily as needed. LORazepam (ATIVAN) 0.5 mg Take 1 tablet by 15 tablet 0 07/0 01/2019 TabletIndications: mouth every 6 hours Malignant neoplasm of as needed for upper-outer quadrant of Anxiety (nausea). right breast in female, estrogen receptor positive letrozole (Femara) 2.5 mg Take 1 tablet by 90 tablet 03/1506/14/2022 TabletIndications: mouth daily. 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 Both eyes Brimonidine-Timolol Apply 1 drop to eye 0 09/29/2021 (COMBIGAN) 0.2-0.5 % daily. Drops documented as of this encounter Plan of Treatment Not on filedocumented as of this encounter Procedures Procedure Name Priority Date/Time Associated Diagnosis Comme nts SURGICAL PATHOLOGY Routine 06/22/2021 4:20 PM Res ults for this REPORT EDT procedure are i n the results section. documented in this encounter Results Surgical Pathology Report (06/22/2021 4:20 PM EDT) Component Value Ref Test Analysis Performed At [facility] Range Method Time Signature Surgical [id number] ? Location: [facility] Pathology [place] Report The signing pathologist has (i) examined the relevant preparation(s) for the [facility] specimen(s) and (ii) rendered or confirmed the diagnosis(es) . HOSPITAL LABORATORY . ?Surgic al Pathology DIAGNOSIS Right great toe, nail other: - PAS/F is negative for fungal hyphae Electronically signed by: ?Bala Powell MD Verified: ??06/25/2021 10:31 ??Dermatopathologist, Bone & Soft Tissue Pathologist Performed at: ??-[facility] Dept. of Pathology, [place], [place] SPECIMEN(S) SUBMITTED A - Right great toe nail, excision (1) Referring Identifier: ??[id number] Report to: (not provided) CLINICAL INFORMATION Onychodystrophy SPECIMEN PROCESSING A - Labeled/Fixative: Right great toenail, fresh. Quantity/Size: Multiple, 1.8 x 1.0 x 0.5 cm aggregate. Tissue Description: Nonorien chris, irregular mcmahon to yellow brown thickened unguis fragments. Sections/Processing: Submitted en toto ??in 1 cassette labeled A1. ??shb Specimen (Source) Anatomical Collection Method Collection Time Re ceived Time Location / / Volume Laterality 06/22/2021 4:20 PM EDT Resulting Agency Comment Spec In Lab / WKS Floridalma Nagy FIRER BOILER PATHOLOGY/CYTOLOGY ORDERABLE S Performing Organization Address City/State/[facility] [place] [address] documented in this encounter Visit Diagnoses Not on filedocumented in this encounter Care Teams Recreational Resort Manager Relationship Specialty Start Date End Date Mary Chinchilla APRN PCP - General Geriatric Medicine 04/24/19 [address] [place] [address] documented as of this encounter
--- OUTSIDE RECORDS SUMMARY | 2022-06-18 00:28 | XMS_ITS | Encounter Summary ---
:1950 Author Organization [facility] [address] Care Team Providers Name Role Phone Mary Chinchilla APRN Primary Care Provider Reason for Visit Reason Comments On Treatment Visit Encounter Details Date Type Department Care Team Description 11/06/2019 Office Visit Radiation Oncology at Jo Rae MD Malignant neoplasm of [facility] upper-outer quadrant [address] of right female [place], [place] RADIATION ONCOL OGY breast, unspecified [id number] [place] [address] estrogen receptor [phone] status (Work) Social History Tobacco Use Types Packs/Day Years Used Date Never Smoker Smokeless Tobacco: Never Used Alcohol Use Standard Drinks/Week Comments Not Currently 0 (1 standard drink = 0.6 oz pure alcoho l) Sex Assigned at Date Recorded Not on file documented as of this encounter Last Filed Vital Signs Vital Sign Reading Time Taken Comments Blood Pressure 136/65 11/06/2019 9:00 AM EST Pulse 83 11/06/2019 9:00 AM EST Temperature 36.7 ??C (98.1 ??F) 11/06/2019 9:00 AM EST Respiratory Rate 16 11/06/2019 9:00 AM EST Oxygen Saturation 99% 11/06/2019 9:00 AM EST Inhaled Oxygen Concentration - - Weight 78.3 kg (172 lb 9.6 oz) 11/06/2019 9:00 AM with shoes EST Height - - Body Mass Index 32.63 10/02/2019 9:23 AM EST documented in this encounter Patient Instructions Patient InstructionsKenyetta Rosales RN - 11/06/2019 9:30 AM EST documented in this encounter Progress Notes Chantelle Rae MD - 11/06/2019 9:30 AM EST Images from the original note were not included. DIAGNOSIS: Breast ca, R, IDC, 2 foci, 24 mm & 10 mm, gr 2, both ER+TX+ & Her2 neg, s/p mastectomy & SNB, mpT2 pN1, s/p adjuvant chemo. CURRENT TREATMENT DOSE: 24 Gy R supraclav, R axilla, R IMC, R chest wall ANTICIPATED TOTAL DOSE: 50 Gy R supraclav, R axilla, R IMC, R chest wall; 60 Gy mastectomy scar Current # of xrt received: 12 Anticipated total # of xrt txs: 25 R supraclav, R axilla, R IMC, R chest wall; 30 mastectomy scar Evaluation of port verification films: Approved. For details, see electronic film record in [employer]. Changes in Medical Condition: None. Pain?: No Your Medications Accurate as of November 06, 2019 9:49 AM. If you have any questions, ask [...] 30 tablet Refills: 3 Physical Exam: BP 136/65 (Patient Position: Sitting) Pulse 83 Temp 36.7 ??C (98.1 ??F) (Oral) Resp 16 Wt 78.3 kg (172 lb 9.6 oz) Comment: with shoes SpO2 99% BMI 32.63 kg/m?? A&Ox3, NAD. Minimal to mild erythema tx'd area. Amb stable. Imagin10/02/19 Dx'ic Rad Interp CTsim: Indeterminate, ill-defined sclerotic focus w/in inferior L2 vertebral body, concerning for met osseous lesion. Rec correlation & further eval w/nuc med bone scan. Performance Status: KPS 100% Response to xrt: As expected. Irradiation Related Symptoms: Skin rxn. Treatment for Symptom Control: Bradley's cream. Pain Management: Not needed. Recommendation on Continuing Course of xrt: Cont. Discussed CTsim finding, rec'd bone scan & sheagrees, however, after visit when ordering bone scan, appropriateness banner rec'd MRI L spine instead. We have since discussed MRI L spine rather than bone scan & she will be undergoing MRI L spine 11/09/19. documented in this encounter Plan of Treatment Not on filedocumented as of this encounter Visit Diagnoses Diagnosis Malignant neoplasm of upper-outer quadra nt of right female breast, unspecified estrogen receptor status documented in this encounter Care Teams Youth Counselor Relationship Specialty Start Date End Date Mary Chinchilla APRN PCP - General Geriatric Medicine 04/24/[address] [place] [address] documented as of this encounter
--- OUTSIDE RECORDS SUMMARY | 2022-06-18 00:28 | XMS_ITS | Encounter Summary ---
:1950 Author Organization [facility] [place] [address] Care Team Providers Name Role Phone Mary Chinchilla APRN Primary Care Provider Encounter Details Date Type Department Care Team Description 10/04/2019 Telephone Hematology/Oncology at [facility] Magaly Grant [address] [phone] Social History Tobacco Use [...] on filedocumented in this encounter Care Teams Vehicle Body Maker Relationship Specialty Start Date End Date Mary Chinchilla APRN PCP - General Geriatric Medicine 04/24/[address] [place] [address] documented as of this encounter
--- OUTSIDE RECORDS SUMMARY | 2022-06-18 00:28 | XMS_ITS | Encounter Summary ---
:1950 Author Organization [facility] [place] [address] Care Team Providers Name Role Phone Mary Chinchilla APRN Primary Care Provider Encounter Details Date Type Department Care Team Description 04/08/2021 Office Visit Hematology/Oncology Pam Sharma, Horm one receptor positive malignant neoplasm of breast, unspecified laterality; at [facility] SCRAPER MEAT Breast cancer metastasized to axillary l ymph node, unspecified laterality; [address] [place], [place] MEDICAL ONCOLOG [place] [address] [place], [place] [phone] [id number] Social History Tobacco Use Types Packs/Day Years Used Date Never Smoker Smokeless Tobacco: Never Used Alcohol Use Standard Drinks/Week Comments Not Currently 0 (1 standard drink = 0.6 oz pure alcoho l) Sex Assigned at Date Recorded Not on file documented as of this encounter Last Filed Vital Signs Vital Sign Reading Time Taken Comments Blood Pressure 151/78 04/08/2021 10:51 AM EDT Pulse 79 04/08/2021 10:51 AM EDT Temperature 36.2 ??C (97.1 ??F) 04/08/2021 10:51 AM EDT Respiratory Rate 18 04/08/2021 10:51 AM EDT Oxygen Saturation 97% 04/08/2021 10:51 AM EDT Inhaled Oxygen Concentration - - Weight 82.8 kg (182 lb 9.6 oz) 04/08/2021 10:51 AM EDT Height 152.4 cm (5') 04/08/2021 10:51 AM EDT Body Mass Index 35.66 04/08/2021 10:51 AM EDT documented in this encounter Progress Notes Zachary Pam NIC Conteh - 04/08/2021 11:00 AM EDT Diagnosis: R IDC 2 foci 24 mm and 10 mm, ER+/ID+ HER2 neg, Gr2, mrg neg, [id number] Subjective: I've been feeling well HPI: Oncology history -02/15/19 screening mammogram highly suspicious for malignancy - 02/21/19 right mammo and US hypoechoic 2.2 cm spiculated mass 9:00 5 cm from the nipple +3 hypoechoic spiculated masses in the right breast - 02/28/19 Dr. Dot Hull performed biopsy Pathology IDC, ER+ 90% ID 25-50%, HER2 IHC 0 -04/04/19 right breast mastectomy with sentinel lymph node biopsy Dr. Hull -05/16/19 satrted [facility] [employer]. Interval history(04/08/21): Ms. Rueda is in clinic for follow-up of hormone positive breast cancer. She is s/p surgery/chemotherapy and RT and is now on daily letrozole. She has been on letrozole for over a year now. She is tolerating the therapy well. Overall she has been feeling well. Energy level is good. She has occasional mild arthralgias. No pain. She gets some twinges of pain at her surgical site and in the right axilla but they are infrequent. 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 No new illnesses or hospitalizations since we saw her last. PMH: No interval changes since last visit [...] masses or lumps in the left breast. Heart: Regular rate and rhythm, S1, S2 normal, no murmur, rub or gallop Abdomen: Soft, non-tender, bowel sounds active all four quadrants, no masses, no organomegaly. Thereis no appreciable ascites Extremities: Extremities normal, atraumatic, no cyanosis or edema Pulses: 2+ and symmetric Skin: Skin discoloration on face and hands, dry skin Lymph nodes: Cervical, supraclavicular, and axillary nodes normal Neurologic: Normal Vitals BP 151/78 (Patient Position: Sitting) Pulse 79 Temp 36.2 ??C (97.1 ??F) (Temporal) Resp 18 Ht 152.4 cm (5') Wt 82.8 kg (182 lb 9.6 oz) SpO2 97% BMI 35.66 kg/m?? Pathology: 02/28/19 I - Outside slide(s) labeled [id number], collection date 02/28/2019. A - Needle biopsies: ??Right breast, 10 o'clock Diagnosis: ?Invasive ductal carcinoma Microcalcifications: ??N/A ER, ID, and HER2 studies (by report): ER: Positive (>90%, strong) ID: Positive (25%, moderate to strong) HER2 IHC: Negative (score 0) B - Needle biopsies: ??Right breast, 9 o'clock Diagnosis: ?Invasive ductal carcinoma Microcalcifications: ??N/A ER, ID, and HER2 studies (by report): ER: Positive (>90%, strong) ID: Positive (50%, moderate to strong) HER2 IHC: Negative (score 0) 04/04/19 A - Right breast, total mastectomy: - Invasive ductal carcinoma, two foci (see Synoptic Report and Discussion) - Ductal carcinoma in-situ - Fibrocystic changes B - [place] lymph node #1, excision: Two lymph nodes positive for metastatic carcinoma (2/2) Synoptic Report Specimen ?Procedure: ??Total mastectomy ?Specimen Laterality: ?? Right Tumor ?Histologic Type: ?? Invasive carcinoma of no special type (ductal, not ? otherwise specified) ?Histologic Grade ([place] Histologic Score) ? Glandular (Acinar) / Tubular [...] ?? Negative for extensive intraductal ?component (EIC) [id number] ? Location: [facility] The signing pathologist has (i) examined the relevant preparation(s) for the specimen(s) and (ii) rendered or confirmed the diagnosis(es). . ? Surgical Pathology DIAGNOSIS CONSULTATION CASE I - Outside slide(s) labeled [id number], collection date 02/28/2019. A - Needle biopsies: ??Right breast, 10 o'clock Diagnosis: ?Invasive ductal carcinoma Microcalcifications: ??N/A ER, ID, and HER2 studies (by report): ER: Positive (>90%, strong) ID: Positive (25%, moderate to strong) HER2 IHC: Negative (score 0) B - Needle biopsies: ??Right breast, 9 o'clock Diagnosis: ?Invasive ductal carcinoma Microcalcifications: ??N/A ER, ID, and HER2 studies (by report): ER: Positive (>90%, strong) ID: Positive (50%, moderate to strong) HER2 IHC: Negative (score 0) II - Outside slide(s) labeled [id number], collection date 04/04/2019. A - Right breast, total mastectomy: - Invasive ductal carcinoma, two foci (see Synoptic Report and Discussion) - Ductal carcinoma in-situ - Fibrocystic changes B - [place] lymph node #1, excision: Two lymph nodes [...] ?? Cannot be determined ? Number of [place] Nodes Examined: ?2 Pathologic Stage Classification (pTNM, AJCC 8th Edition) ?TNM Descriptors: ?? m (multiple foci of invasive carcinoma) ?Primary Tumor (Invasive Carcinoma) (pT): ?pT2 ?Regional Lymph Nodes (pN) ? Modifier: ??(sn): Only sentinel node(s) evaluated. Category (pN): ?? pN1a Tumor Block(s): ?? A7 9 o'clock tumor; ??A10 10 o'clock tumor DISCUSSION The two foci of invasive carcinoma have similar morphology. Labs: 04/07/21- WBC-5.04 Hgb/Hct-13.5/40.0 Plt-212 ANC-2.80 Na-143 K+-3.2 [...] 2 foci 24 mm and 10 mm, ER+/ID+ HER2 neg, Gr2, mrg neg, SN 2/2, G2R3sBw Treatment: - 04/04/19 right breast mastectomy with sentinel lymph node biopsy Dr. Hull -05/16/19 - 07/03/19 4 cycles of AC -07/16/19 - 10/02/2019 weekly Taxol. -10/22/19 - 12/04/19 adjuvant XRT -01/01/20 8 letrozole 2.5 mg a day Nery is currently on aromatase inhibitor letrozole 2.5mg daily. Mild body achiness intermittently.Over lucero, she tolerates treatment well. She will stay on therapy for 5-10 years. No clinical evidence of disease on exam today. Last mammogram in 2019 was negative. Letrozole prescription refilled today. #Peripheral neuropathy: Grade 1. No affecting her day to day activities. #Bone Health: Baseline DEXA scan done on 02/25/20- normal. No fracture risk. Discussed calcium and vitamin D supplements. Encouraged weight bearing exercise to maintain bone health. #Hypokalemia- K+-3.2 Secondary to HCTZ. Start Kdur 10meq daily. Follow up with PCP. #Leukopenia: Resolved. #Mediport removal: Completed. Plan: 1. Continue letrozole 2.5 mg a day. Continue breast cancer surveillance visits with [facility] and yearly mammograms as scheduled. 2. Prescription for Kdur 10meq daily. Follow up with PCP. 3. Next visit with CBC and CMP in 6 months. Mammogram will be ordered by PCP. Nery voiced understanding of the plan and was given an opportunity to ask questions which I answered to the best of my ability. Nery understands he can call the clinic between visits with any questions/concerns or new symptoms. Pam Sharma MSN, S[employer]ER [employer], AOCNP Medical Oncology documented in this encounter Plan of Treatment Not on filedocumented as of this encounter Visit Diagnoses Diagnosis Hormone receptor positive malignant neop lasm of breast, unspecified laterality Breast cancer metastasized to axillary l ymph node, unspecified laterality Hypokalemia Hypopotassemia documented in this encounter Care Teams Consultant Teacher Relationship Specialty Start Date End Date Mary Chinchilla APRN PCP - General Geriatric Medicine 04/24/[address] [place] [address] documented as of this encounter
--- OUTSIDE RECORDS SUMMARY | 2022-06-18 00:28 | XMS_ITS | Encounter Summary ---
:1950 Author Organization [facility] [place] [address] Care Team Providers Name Role Phone Mary Chinchilla APRN Primary Care Provider Encounter Details Date Type Department Care Team Description 03/03/2020 Telephone Hematology/Oncology at [facility] Deb Quinteros [address] [place] [phone] Social History Tobacco Use Types Packs/Day Years Used Date Never Smoker Smokeless Tobacco: Never Used Alcohol Use Standard Drinks/Week Comments Not Currently 0 (1 standard drink = 0.6 oz pure alcoho l) Sex Assigned at Date Recorded Not on file documented as of this encounter Miscellaneous Notes Telephone Encounter - Deb Quinteros - 03/03/2020 1:29 PM EDT Called Nery to inform her of the following: As a new precaution with COVID-19 we are calling all patients before they come in for their appointment to screen for any potential symptoms. 1. EXPOSURE: ???Have you been in contact with anyone suspected or confirmed to have COVID-19 in the past 14 days??? No 2. Do you have a fever, cough, or shortness of breath? No [if they say yes to symptoms but no to exposure OR yes to symptoms and yes to exposure include the following and route to triage] I am going to forward this information on to our triage nurse. Someone should be calling you about next steps in regards to your appointment. Another precaution we are taking is that we are not allowing visitors at this time. If needed, someone may bring you to your appointment but they will be asked to wait outside. If you develop symptoms of shortness of breath, cough, or fever prior to your appointment do not come in for your appointment. Please call the Cancer Center before coming in. documented in this encounter Plan of Treatment Not on filedocumented as of this encounter Visit Diagnoses Not on filedocumented in this encounter Care Teams Ceramic Engineering Professor Relationship Specialty Start Date End Date Mary Chinchilla APRN PCP - General Geriatric Medicine 04/24/[address] [place] [address] documented as of this encounter
--- OUTSIDE RECORDS SUMMARY | 2022-06-18 00:28 | XMS_ITS | Encounter Summary ---
:1950 [place] [address] Care Team Providers Name Role Phone Mary Chinchilla NIC Primary Care Provider Reason for Visit Reason Comments On Treatment Visit Encounter Details Date Type Department Care Team Description 10/30/2019 Office Visit Radiation Oncology at Jo Rae MD Hormone receptor [facility] positive malignant [address] neoplasm of right [place], [place] RADIATION ONCOL OGY breast [id number] [place] [address] [phone] Social History Tobacco Use Types Packs/Day Years Used Date Never Smoker Smokeless Tobacco: Never Used Alcohol Use Standard Drinks/Week Comments Not Currently 0 (1 standard drink = 0.6 oz pure alcoho l) Sex Assigned at Date Recorded Not on file documented as of this encounter Last Filed Vital Signs Vital Sign Reading Time Taken Comments Blood Pressure 146/68 10/30/2019 1:00 PM EST Pulse 83 10/30/2019 1:00 PM EST Temperature 36.6 ??C (97.9 ??F) 10/30/2019 1:00 PM EST Respiratory Rate 16 10/30/2019 1:00 PM EST Oxygen Saturation 99% 10/30/2019 1:00 PM EST Inhaled Oxygen Concentration - - Weight 80.2 kg (176 lb 12.8 oz) 10/30/2019 1:00 PM with shoes EST Height - - Body Mass Index 33.42 10/02/2019 9:23 AM EST documented in this encounter Progress Notes Chantelle Rae MD - 10/30/2019 12:45 PM EST Images from the original note were not included. DIAGNOSIS: Breast ca, R, IDC, 2 foci, 24 mm & 10 mm, gr 2, both ER+AZ+ & Her2 neg, s/p mastectomy & SNB, mpT2 pN1, s/p adjuvant chemo. CURRENT TREATMENT DOSE: 14 Gy R supraclav, R axilla, R IMC, R chest wall ANTICIPATED TOTAL DOSE: 50 Gy R supraclav, R axilla, R IMC, R chest wall; 60 Gy mastectomy scar Current # of xrt received: 7 Anticipated total # of xrt txs: 25 R supraclav, R axilla, R IMC, R chest wall; 30 mastectomy scar Evaluation of port verification films: Approved. For details, see electronic film record in [employer] System. Changes in Medical Condition: None. Pain?: No Your Medications Accurate as of October 30, 2019 1:10 PM. If you have any questions, ask [...] 30 tablet Refills: 3 Physical Exam: BP 146/68 (Patient Position: Sitting) Pulse 83 Temp 36.6 ??C (97.9 ??F) (Oral) Resp 16 Wt 80.2 kg (176 lb 12.8 oz) Comment: with shoes SpO2 99% BMI 33.42 kg/m?? A&Ox3, NAD. Minimal erythema tx'd area. Amb stable. Imagin10/02/19 Dx'ic [...] appropriateness banner rec'd MRI L spine instead. Today discussed MRI L spine rather than bone scan & she is amenable to proceeding w/MRI L spine rather than bone scan. 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
--- OUTSIDE RECORDS SUMMARY | 2022-06-18 00:28 | XMS_ITS | Encounter Summary ---
:1950 Author Organization [facility] [place] [address] Care Team Providers Name Role Phone Mary Chinchilla APRN Primary Care Provider Encounter Details Date Type Department Care Team Description 06/29/2021 Ancillary Procedure Radiology Library at Adry Chinchilla [facility] [address] [place] [id number] [phone] (Wo rk) Social History Tobacco Use Types [...] Associated Diagnosis Comme nts FILM LIBRARY Routine 06/29/2021 12:00 AM Results for this STORAGE ONLY MAMMO EDT procedure are in the results section. documented in this encounter Results Film Library- Storage Only Mammo (06/29/2021 12:00 AM EDT) Specimen (Source) Anatomical Location Collection Method / Collectio n Time Received Time / Laterality Volume Narrative [facility] - 09/24/2021 12:46 PM EST This exam is auto-finalizing. It's purpo se is for storage only. Mary Chinchilla APRN G FILM LIBRARY ORDERABLES Performing Organization Address City/State/ZIP Code Phon e Number [place], [place] documented in this encounter Visit Diagnoses Not on filedocumented in this encounter Care Teams Equal Opportunity Counselor Relationship Specialty Start Date End Date Mary Chinchilla APRN PCP - General Geriatric Medicine 04/24/[address] [place] [place] [address] documented as of this encounter
--- OUTSIDE RECORDS SUMMARY | 2022-06-18 00:28 | XMS_ITS | Encounter Summary ---
:1950 Author Organization [facility] [address] Care Team Providers Name Role Phone Mary Chinchilla APRN Primary Care Provider Encounter Details Date Type Department Care Team Description 10/02/2019 Notes Only Hematology/Oncology at Martine Negron MSW [facility] OFFICE OF CARE [address] [place] [address] [phone] Social History Tobacco Use Types Packs/Day Years Used Date Never Smoker Smokeless Tobacco: Never Used Alcohol Use Standard Drinks/Week Comments Not Currently 0 (1 standard drink = 0.6 oz pure alcoho l) Sex Assigned at Date Recorded Not on file documented as of this encounter Progress Notes Martine Negron MSW - 10/02/2019 10:04 AM EST Follow up with pt after sim and prior to infusion. Pt weepy, feeling exhausted as she worked last night and is her for her appointments. Hopeful she will sleep through her infusion. Pt indicated it is her last chemo today and she is glad it is over. Pt expecting to start RT treatments in a couple of weeks. Encouraged her to take some time for herself before that starts. Otherwise pt reports she is doing fairly well over all. Offered support. Reminded pt of [employer] availability and will continue to follow for support and resources. documented in this encounter Plan of Treatment Not on filedocumented as of this encounter Visit Diagnoses Not on filedocumented in this encounter Care Teams Sand Filler Relationship Specialty Start Date End Date Mary Chinchilla APRN PCP - General Geriatric Medicine 04/24/[address] [place] [address] documented as of this encounter
--- OUTSIDE RECORDS SUMMARY | 2022-06-18 00:28 | XMS_ITS | Encounter Summary ---
:1950 Author Organization [facility] [place] [address] Care Team Providers Name Role Phone Mary Chinchilla APRN Primary Care Provider Encounter Details Date Type Department Care Team Description 03/04/2020 Office Visit Hematology/Oncology Chidi Gorman MD [facility] DR HEMATOLOGY/[place] [address] H[facility] [address] MEDICAL ONCOLOGY [place], [place] [id number] positive malignant [address] [place] [address] neoplasm of breast, [place] unspecified [address] laterality [phone] Social History Tobacco Use Types Packs/Day Years Used Date Never Smoker Smokeless Tobacco: Never Used Alcohol Use Standard Drinks/Week Comments Not Currently 0 (1 standard drink = 0.6 oz pure alcoho l) Sex Assigned at Date Recorded Not on file documented as of this encounter Last Filed Vital Signs Vital Sign Reading Time Taken Comments Blood Pressure 150/74 03/04/2020 10:02 AM EDT Pulse 73 03/04/2020 10:02 AM EDT Temperature 36.6 ??C (97.9 ??F) 03/04/2020 10:02 AM EDT Respiratory Rate 18 03/04/2020 10:02 AM EDT Oxygen Saturation 99% 03/04/2020 10:02 AM EDT Inhaled Oxygen Concentration - - Weight 73.8 kg (162 lb 9.6 oz) 03/04/2020 10:02 AM EDT Height 154.9 cm (5' 0.98) 03/04/2020 10:02 AM EDT Body Mass Index 30.74 03/04/2020 10:02 AM EDT documented in this encounter Progress Notes Zachary Pamjorge Conteh APRN - 03/04/2020 10:00 AM EDT Diagnosis: R IDC 2 foci 24 mm and 10 mm, ER+/SD+ HER2 neg, Gr2, mrg neg, [id number] Subjective: I've been feeling well HPI: Oncology history -02/15/19 screening mammogram highly suspicious for malignancy - 02/21/19 right mammo and US hypoechoic 2.2 cm spiculated mass 9:00 5 cm from the nipple +3 hypoechoic spiculated masses in the right breast - 02/28/19 Dr. Dot [place] performed biopsy Pathology IDC, ER+ 90% SD 25-50%, HER2 IHC 0 -04/04/19 right breast mastectomy with sentinel lymph node biopsy Dr. [place] -05/16/19 sat[facility]ed [facility]. Interval history: Ms. Rueda is in clinic for follow-up of hormone positive breast cancer diagnosed in 02/2019. She is s/p surgery/chemotherapy and RT and is now on daily letrozole. Overall she has beenfeeling well. No new illnesses or hospitalizations. Last mammogram was a year ago. She is not going to have anything done until April because of COVID. Her PCP orders her mammogram. She still has her port in her left chest and it isnt flushing well but she does not want it taken out until April. Denies any hot flashes, SOB, chest pain or edema. She still does have mild numbness and tingling can his fingertips and feet, which do not interfere with her daily activities. Denies any nausea, vomiting, fever, chills or pain. No swelling in right arm. She does have some tightness in the right arm when doing activities. No new lumps or bumps. Appetite is good- maintaining weight. She has lost about 10# since last October. PMH: No interval changes since last visit [...] file Gets together: Not on file Attends rastafari service: Not on file Active member of [...] nipple inversion, skin dimpling or nipple drainage. Tender to palpation. No masses or lumps [...] axillary nodes normal Neurologic: Normal Vitals BP 150/74 (Patient Position: Sitting) Pulse 73 Temp 36.6 ??C (97.9 ??F) (Temporal) Resp 18 Ht 154.9 cm (5' 0.98) Wt 73.8 kg (162 lb 9.6 oz) SpO2 99% BMI 30.74 kg/m?? Pathology: 02/28/19 I - Outside slide(s) labeled [id number], collection date 02/28/2019. A - Needle biopsies: ??Right breast, 10 o'clock Diagnosis: ?Invasive ductal carcinoma Microcalcifications: ??N/A ER, SD, and HER2 studies (by report): ER: Positive (>90%, strong) SD: Positive (25%, moderate to strong) HER2 IHC: Negative (score 0) B - Needle biopsies: ??Right breast, 9 o'clock Diagnosis: ?Invasive ductal carcinoma Microcalcifications: ??N/A ER, SD, and HER2 studies (by report): ER: Positive (>90%, strong) SD: Positive (50%, moderate to strong) HER2 IHC: Negative (score 0) 04/04/19 A - Right breast, total mastectomy: - Invasive ductal carcinoma, two foci (see Synoptic Report and Discussion) - Ductal carcinoma in-situ - Fibrocystic changes B - Fayette lymph node #1, excision: Two lymph nodes positive for metastatic carcinoma (2/2) Synoptic Report Specimen ?Procedure: ??Total mastectomy ?Specimen Laterality: ?? Right Tumor ?Histologic Type: ?? Invasive carcinoma of no special type (ductal, not ? otherwise specified) ?Histologic Grade ([place] Histologic Score) ? Glandular (Acinar) / Tubular [...] ?? Negative for extensive intraductal ?component (EIC) [id number] ? Location: W The signing pathologist has (i) examined the relevant preparation(s) for the specimen(s) and (ii) rendered or confirmed the diagnosis(es). . ? Surgical Pathology DIAGNOSIS CONSULTATION CASE I - Outside slide(s) labeled [id number], collection date 02/28/2019. A - Needle biopsies: ??Right breast, 10 o'clock Diagnosis: ?Invasive ductal carcinoma Microcalcifications: ??N/A ER, SD, and HER2 studies (by report): ER: Positive (>90%, strong) SD: Positive (25%, moderate to strong) HER2 IHC: Negative (score 0) B - Needle biopsies: ??Right breast, 9 o'clock Diagnosis: ?Invasive ductal carcinoma Microcalcifications: ??N/A ER, SD, and HER2 studies (by report): ER: Positive (>90%, strong) SD: Positive (50%, moderate to strong) HER2 IHC: Negative (score 0) II - Outside slide(s) labeled [id number], collection date 04/04/2019. A - Right breast, total mastectomy: - Invasive ductal carcinoma, two foci (see Synoptic Report and Discussion) - Ductal carcinoma in-situ - Fibrocystic changes B - Fayette lymph node #1, excision: Two lymph nodes positive for metastatic carcinoma (2/2) Synoptic Report Specimen ?Procedure: ??Total mastectomy ?Specimen Laterality: ?? Right Tumor ?Histologic Type: ?? Invasive carcinoma of no special type (ductal, not ? otherwise specified) ?Histologic Grade ([place] Histologic Score) ? Glandular (Acinar) / Tubular [...] ?? Cannot be determined ? Number of Fayette Nodes Examined: ?2 Pathologic Stage Classification (pTNM, AJCC 8th Edition) ?TNM Descriptors: ?? m (multiple foci of invasive carcinoma) ?Primary Tumor (Invasive Carcinoma) (pT): ?pT2 ?Regional Lymph Nodes (pN) ? Modifier: ??(sn): Only sentinel node(s) evaluated. Category (pN): ?? pN1a Tumor Block(s): ?? A7 9 o'clock tumor; ??A10 10 o'clock tumor DISCUSSION The two foci of invasive carcinoma have similar morphology. Labs: 03/04/20- WBC-3.70 Hgb/Hct-12.7/37.7 Plt-214 ANC-2.60 K+-3.3 BUN/Cr-21/0.74 Lytes and LFTS unremarkable 12/18/2019 WBC 3.49, hemoglobin 12.7, platelet count 216, ANC 2.38 sodium 142, potassium 3.4, BUN 16, creatinine 1.76, calcium 8.58, total bilirubin 0.3, AST 22, ALT 28, alkaline phosphatase 49, totalprotein 6.7, albumin 3.5, 10/02/2019 sodium 139, potassium [...] 2 foci 24 mm and 10 mm, ER+/SD+ HER2 neg, Gr2, mrg neg, SN 2/2, [id number] Treatment: - 04/04/19 right breast mastectomy with sentinel lymph node biopsy Dr. [place] -05/16/19 - 07/03/19 4 cycles of AC -07/16/19 - 10/02/2019 weekly Taxol. -10/22/19 - 12/04/19 adjuvant XRT We discussed prognosis of breast cancer. According to CancerMath.com tool chemotherapy with dose dense AC-T and [...] fewer cancer deaths after 15 years Nery is currently on aromatase inhibitor letrozole 2.5mg daily. She will stay on therapy for 5-10 years. Aromatase inhibitor will decrease chances of cancer recurrence by about a third. We reviewed side effects which include but not limited to hot flashes, vaginal dryness, musculoskeletal pain, osteoporosis, all questions were answered to patient satisfaction. No clinical evidence of cancer recurrence. #Peripheral neuropathy: Grade 1. No affecting her day to day activities. #Bone Health: Baseline DEXA scan done on 02/25/20- normal. No fracture risk. Discussed calcium and vitamin D supplements. Encouraged weight bearing exercise to maintain bone health. #Hypokalemia- K+-3.3. She has potassium that she is supposed to take with her HCTZ- she has not beentaking them. Plan: 1. Continue breast cancer surveillance visits with [facility] every 3 months for 2 years- alternate visits with Dr. Rae. Yearly mammograms(she will have in April). 1. Continue letrozole 2.5 mg a day. 3. Patient has port in left chest- does not want any procedures until April then will have it removed. The plan was discussed with the patient [...] laterality documented in this encounter Care Teams Engineering Design Manager Relationship Specialty Start Date End Date Mary Chinchilla APRN PCP - General Geriatric Medicine 04/24/[address] [place] [address] documented as of this encounter
--- OUTSIDE RECORDS SUMMARY | 2022-06-18 00:28 | XMS_ITS | Encounter Summary ---
:1950 [place] [address] Care Team Providers Name Role Phone Mary Chinchilla NIC Primary Care Provider Reason for Visit Reason Comments Radiation Follow-up Encounter Details Date Type Department Care Team Description 12/18/2019 Office Visit Radiation Oncology at Jo Rae MD Hormone receptor [facility] positive malignant [address] neoplasm of right [place], [place] RADIATION ONCOL OGY breast [address] [place] [address] [phone] Social History Tobacco Use Types Packs/Day Years Used Date Never Smoker Smokeless Tobacco: Never Used Alcohol Use Standard Drinks/Week Comments Not Currently 0 (1 standard drink = 0.6 oz pure alcoho l) Sex Assigned at Date Recorded Not on file documented as of this encounter Last Filed Vital Signs Vital Sign Reading Time Taken Comments Blood Pressure 149/68 12/18/2019 1:16 PM EST Pulse 78 12/18/2019 1:16 PM EST Temperature 36.6 ??C (97.9 ??F) 12/18/2019 1:16 PM EST Respiratory Rate 18 12/18/2019 1:16 PM EST Oxygen Saturation 100% 12/18/2019 1:16 PM EST Inhaled Oxygen Concentration - - Weight 74.7 kg (164 lb 9.6 oz) 12/18/2019 1:16 PM EST Height - - Body Mass Index 31.12 10/02/2019 9:23 AM EST documented in this encounter Patient Instructions Patient InstructionsChantelle Rae MD - 12/18/2019 1:00 PM EST Your exam shows that you are healing nicely from radiotherapy & there is no evidence of cancer. Please continue the abbey's cream until skin no longer peeling (will likely be in 1-2 months). You may use a straight/regular razor on your right underarm. You may expose the irradiated area to sun, but it is recommended that you apply sunscreen with an SPF of @ least #45 on the irradiated area prior to exposing it to sun. You may swim in chlorinated water. You may expose irradiated area to hot tub water. We will mail you a letter with an appointment for followup with me in 6 months. Please stop by front office clerk to ask about appointment for CT of spine. documented in this encounter Progress Notes Chantelle Rae MD - 12/18/2019 1:00 PM EST Images from the original note were not included. CC: Sched'd fu s/p xrt completion. HPI: 69 y/o f who completed xrt to R supraclav, R axilla, R IMC & R chest wall 2 wks ago (12/04/19) for breast ca, R, IDC, 2 foci, 24 mm & 10 mm, gr 2, both ER+DE+ & Her2 neg, s/p mastectomy& SNB, mpT2 pN1, s/p adjuvant chemo. Dr. Caceres today for eval for hormonal tx. ROS: Decreased burning sensation w/in irrad'd area. Irrad'd skin healing. Energy level ok. Past Medical History: Diagnosis Date ??? Glaucoma ??? HTN (hypertension) ??? Hyperlipidemia ??? Osteoarthritis ??? Subclinical hypothyroidism No scleroderma/lupus. Past Surgical History: Procedure Laterality Date ??? APPENDECTOMY ??? MASTECTOMY Right ??? TUBAL LIGATION Your Medications Accurate as of December 18, 2019 3:36 PM. If you have any questions, ask your nurse or doctor. New Medications Dose Details letrozole 2.5 mg Tab Commonly known as: Femara Take 1 tablet by mouth daily. Started by: SETH CACERES MD 2.5 mg Quantity: 90 tablet Refills: 3 Continued medications, unchanged Dose Details bimatoprost 0.01 [...] Normal appearance. She is not diaphoretic. Comments: BP 149/68 (Patient Position: Sitting) Pulse 78 Temp 36.6 ??C (97.9 ??F) (Oral) Resp18 Wt 74.7 kg (164 lb 9.6 oz) SpO2 100% BMI 31.12 kg/m?? HENT: Head: Normocephalic and atraumatic. Eyes: General: No scleral icterus. Right eye: No discharge. Left eye: No discharge. Extraocular Movements: Extraocular movements intact. Conjunctiva/sclera: Conjunctivae normal. Pupils: Pupils are equal, round, and reactive to light. Neck: Musculoskeletal: Normal range of motion and neck supple. Pulmonary: Effort: Pulmonary effort is normal. No respiratory distress. Breath sounds: Normal breath sounds. No stridor. No wheezing, rhonchi or rales. Chest: Chest wall: No tenderness. Breasts: Left: No inverted nipple, mass, nipple [...] scan. ?? 11/09/19 MRI [facility] L[facility]sp[facility] at [facility]. This demonstrates indeterminate L2 VB lesion, with metastasis in DDx. Recommended bone scan as follow-up. ?? 11/23/19 bone scan: Increased uptake @ L2 suspicious for met dz but differential diagnosis has a range of possibilities including benign processes. CT may be helpful. ?? A: Healing well s/p xrt. P: Care of irradiated skin discussed. CT L spine for eval indeterminate L2 lesion. Rtc 6 mos. Due for yearly L mmg in February & she reports PCP sees her in January & will order L mmg. 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
--- OUTSIDE RECORDS SUMMARY | 2022-06-18 00:28 | XMS_ITS | Encounter Summary ---
:1950 [place] [address] Care Team Providers Name Role Phone JaredMary greenfield NIC Primary Care Provider Reason for Visit Reason Comments Radiation Follow-up Encounter Details Date Type Department Care Team Description 08/10/2021 [facility] S[facility] radiotherapy [address] RADIATION ONCOL OGY [address] [place] [address] [phone] (Wo rk) Social History Tobacco Use Types [...] Pressure - - Pulse - - Temperature - - Respiratory Rate - - Oxygen Saturation - - Inhaled Oxygen Concentration - - Weight 84.4 kg (186 lb) 08/10/2021 1:37 PM EDT with manuela es Height - - Body Mass Index 36.33 04/08/2021 10:51 AM EDT documented in this encounter Patient Instructions Patient InstructionsChantelle Rae MD - 08/10/2021 1:30 PM EDT Your exam is without worrisome finding. Someone will contact you to schedule followup with me in 6 months. documented in this encounter Progress Notes Chantelle Rae MD - 08/10/2021 1:30 PM EDT Images from the original note were not included. CC: Sched'd fu s/p xrt completion. HPI: Nery is a 71 y/o f who completed xrt to R supraclav, R axilla, R IMC & R chest wall 1 yr., 8 mos ago (12/04/19) for breast ca, R, IDC, 2 foci, 24 mm & 10 mm, gr 2, both ER+AK+ & Her2 neg, s/p mastectomy & SNB, mpT2 pN1, s/p adjuvant chemo. She is taking letrozole, started after xrt completion. L mmg in May 2021 neg. Subjective: Mild tightness in R infraclav area, says Pam Sharma APRN, rec'd MLD. ROM arms around shoulders ok. No hand/arm swelling. Energy level ok. Past Medical History: Diagnosis Date ??? Glaucoma ??? HTN (hypertension) ??? Hyperlipidemia ??? Osteoarthritis ??? Subclinical hypothyroidism No scleroderma/lupus. Past Surgical History: Procedure Laterality Date ??? APPENDECTOMY ??? MASTECTOMY Right ??? TUBAL LIGATION Your Medications Accurate as of August 10, 2021 11:59 PM. If you have any questions, ask your nurse or doctor. Continued medications, unchanged Dose Details b complex vitamins Cap Take 1 capsule by mouth daily. 1 capsule Refills: 0 bimatoprost 0.01 % Drop Commonly known as: LUMIGAN Apply 1 drop to eye nightly. Both eyes 1 drop Refills: 0 Combigan 0.2-0.5 % Drop Apply 1 drop to eye daily. Generic drug: Brimonidine-Timolol 1 drop Refills: 0 ibuprofen 600 mg Tab Commonly known as: Advil Take 600 mg by mouth daily as needed. 600 mg Refills: 4 irbesartan-hydrochlorothiazide 150-12.5 mg Tab Commonly known as: AVALIDE Refills: 0 letrozole 2.5 mg Tab Commonly known as: Femara Take 1 tablet by mouth daily. 2.5 mg Quantity: 90 tablet Refills: 11 LORazepam 0.5 mg Tab Commonly known as: Ativan Take 1 tablet by mouth every 6 hours as needed for Anxiety (nausea). 0.5 mg Quantity: 15 tablet Refills: 0 potassium chloride SA 10 mEq Tbtq Commonly known as: Susanne-pb Take 1 tablet by mouth daily. 10 mEq Quantity: 90 tablet Refills: 3 Physical Exam Constitutional: Appearance: Normal appearance. She is not diaphoretic. Comments: Wt 84.4 kg (186 lb) Comment: with shoes BMI 36.33 kg/m?? HENT: Head: Normocephalic and atraumatic. Eyes: General: No scleral icterus. Right eye: No discharge. Left eye: No discharge. Extraocular Movements: Extraocular movements intact. Conjunctiva/sclera: Conjunctivae normal. Pupils: Pupils are equal, round, and reactive to light. Pulmonary: Effort: Pulmonary effort is normal. No respiratory distress. Breath sounds: No stridor. Chest: Breasts: Left: No inverted nipple, mass, nipple discharge, skin change or tenderness. Abdominal: General: There is no distension. Palpations: Abdomen is soft. There is no mass. Tenderness: There is no abdominal tenderness. There is no guarding or rebound. Musculoskeletal: General: No swelling or deformity. Normal range of motion. Cervical back: Normal range of motion and neck supple. Lymphadenopathy: Head: Right side of head: No [...] Content: Thought content normal. Judgment: Judgment normal. A: CHASTITY. P: Advised stretching for R infraclav tightness. Request May 2021 L mmg report. Rtc 6 mos. 20 mins in encounter. documented in this encounter Plan of Treatment Not on filedocumented as of this encounter Visit Diagnoses Diagnosis S/P radiotherapy Convalescence following radiotherapy documented in this encounter Care Teams Net Developer Relationship Specialty Start Date End Date Mary Chinchilla APRN PCP - General Geriatric Medicine 04/24/[address] [place] [address] documented as of this encounter
--- OUTSIDE RECORDS SUMMARY | 2022-06-18 00:28 | XMS_ITS | Encounter Summary ---
:1950 Author Organization [facility] [place] [address] Care Team Providers Name Role Phone Mary Chinchilla APRN Primary Care Provider Encounter Details Date Type Department Care Team Description 11/29/2019 Notes Only Radiation Oncology at Martine Negron MSW [facility] OFFICE OF CARE [address] [place] [address] [phone] Social History Tobacco Use Types Packs/Day Years Used Date Never Smoker Smokeless Tobacco: Never Used Alcohol Use Standard Drinks/Week Comments Not Currently 0 (1 standard drink = 0.6 oz pure alcoho l) Sex Assigned at Date Recorded Not on file documented as of this encounter Progress Notes Martine Negron MSW - 11/29/2019 9:17 AM EST Follow up with pt prior to Rt this morning. Pt reports she only has 4 more treatments to go. She indicated she is feeling better overall as compared to when she was going through chemo. She continues to work and expects to retire early summer. She is looking [facility].Offered support. Reminded pt of AUTOMATION CONTROLS ENGINEER availability and will follow for support and resources. documented in this encounter Plan of Treatment Not on filedocumented as of this encounter Visit Diagnoses Not on filedocumented in this encounter Care Teams Performance Architect Relationship Specialty Start Date End Date Mary Chinchilla APRN PCP - General Geriatric Medicine 04/24/[address] [place] [place] [address] documented as of this encounter
--- OUTSIDE RECORDS SUMMARY | 2022-06-18 00:28 | XMS_ITS | Encounter Summary ---
:1950 [place] [address] Care Team Providers Name Role Phone Mary Chinchilla NIC Primary Care Provider Reason for Visit Reason Comments Radiation Follow-up Encounter Details Date Type Department Care Team Description 01/12/2021 Office Visit Radiation Oncology at Jo Rae MD Hormone receptor [facility] [place] [address] neoplasm of right [place], [place] RADIATION ONCOL OGY breast [id number] [place] [address] [phone] Social History Tobacco Use Types Packs/Day Years Used Date Never Smoker Smokeless Tobacco: Never Used Alcohol Use Standard Drinks/Week Comments Not Currently 0 (1 standard drink = 0.6 oz pure alcoho l) Sex Assigned at Date Recorded Not on file documented as of this encounter Last Filed Vital Signs Vital Sign Reading Time Taken Comments Blood Pressure 140/81 01/12/2021 1:40 PM EST Pulse 76 01/12/2021 1:40 PM EST Temperature 36.5 ??C (97.7 ??F) 01/12/2021 1:40 PM EST Respiratory Rate 16 01/12/2021 1:40 PM EST Oxygen Saturation 100% 01/12/2021 1:40 PM EST Inhaled Oxygen Concentration - - Weight 81.7 kg (180 lb 3.2 oz) 01/12/2021 1:40 PM with shoes EST Height - - Body Mass Index 34.07 09/23/2020 12:55 PM EST documented in this encounter Patient Instructions Patient InstructionsChantelle Rae MD - 01/12/2021 1:30 PM EST Your exam is without worrisome finding. I would like to see you for followup in 6 months. Someone will contact you to schedule appointment. documented in this encounter Progress Notes Chantelle Rae MD - 01/12/2021 1:30 PM EST Images from the original note were not included. CC: Sched'd fu s/p xrt completion. HPI: Nery is a 70 y/o f who completed xrt to R supraclav, R axilla, R IMC & R chest wall 1 yr., 1.5 mos ago (12/04/19) for breast ca, R, IDC, 2 foci, 24 mm & 10 mm, gr 2, both ER+SC+ & Her2 neg, s/p mastectomy & SNB, mpT2 pN1, s/p adjuvant chemo. She is taking letrozole, started afterxrt completion. L mmg in February 2020 neg. Subjective: No breast problem. No hand/arm swelling. ROM arms around shoulders ok. Energy level ok. Past Medical History: Diagnosis Date ??? Glaucoma ??? HTN (hypertension) ??? Hyperlipidemia ??? Osteoarthritis ??? Subclinical hypothyroidism No scleroderma/lupus. Past Surgical History: Procedure Laterality Date ??? APPENDECTOMY ??? MASTECTOMY Right ??? TUBAL LIGATION Your Medications Accurate as of January 12, 2021 1:53 PM. If you have any questions, ask [...] 0.5 mg Quantity: 15 tablet Refills: 0 Physical Exam Constitutional: Appearance: Normal appearance. She is not diaphoretic. Comments: BP 140/81 (Patient Position: Sitting) Pulse 76 Temp 36.5 ??C (97.7 ??F) (Temporal) Resp 16 Wt 81.7 kg (180 lb 3.2 oz) Comment: with shoes SpO2 100% BMI 34.07 kg/m?? HENT: Head: Normocephalic and atraumatic. Eyes: [...] Content: Thought content normal. Judgment: Judgment normal. ?? A: CHASTITY. P: Rtc 6 mos. She reports that Tavo Chinchilla APRN, her PCP, will be ordering L mmg to be done in February. 20 mins in encounter. 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
--- OUTSIDE RECORDS SUMMARY | 2022-06-18 00:28 | XMS_ITS | Encounter Summary ---
:1950 Author Organization [facility] [place] [address] Care Team Providers Name Role Phone GaryMary Palomares NIC Primary Care Provider Encounter Details Date Type Department Care Team Description 11/13/2019 Office Visit Radiation Oncology at Danish Reynolds M alignant neoplasm of [facility] upper-outer quadrant [address] [place] [address] Drive [facility] of right female [place], [place] breast, unspecified [phone] RADIATION ONCOLOGY estrogen receptor [phone] [place] [id number] status Social History Tobacco Use Types Packs/Day Years Used Date Never Smoker Smokeless Tobacco: Never Used Alcohol Use Standard Drinks/Week Comments Not Currently 0 (1 standard drink = 0.6 oz pure alcoho l) Sex Assigned at Date Recorded Not on file documented as of this encounter Last Filed Vital Signs Vital Sign Reading Time Taken Comments Blood Pressure 146/71 11/13/2019 9:00 AM EST Pulse 75 11/13/2019 9:00 AM EST Temperature 36.5 ??C (97.7 ??F) 11/13/2019 9:00 AM EST Respiratory Rate 16 11/13/2019 9:00 AM EST Oxygen Saturation 99% 11/13/2019 9:00 AM EST Inhaled Oxygen Concentration - - Weight 79.3 kg (174 lb 12.8 oz) 11/13/2019 9:00 AM with shoes EST Height - - Body Mass Index 33.05 10/02/2019 9:23 AM EST documented in this encounter Progress Notes Danish Reynolds MD - 11/13/2019 10:00 AM EST DIAGNOSIS: Breast ca, R, IDC, 2 foci, 24 mm & 10 mm, gr 2, both ER+UT+ & Her2 neg, s/p mastectomy & SNB, mpT2 pN1, s/p adjuvant chemo. CURRENT TREATMENT DOSE: 32 Gy R supraclav, R axilla, R IMC, R chest wall ANTICIPATED TOTAL DOSE: 50 Gy R supraclav, R axilla, R IMC, R chest wall; 60 Gy mastectomy scar Current # of xrt received: 16 Anticipated total # of xrt txs: 25 R supraclav, R axilla, R IMC, R chest wall; 30 mastectomy scar Evaluation of port verification films: Approved. For details, see electronic film record in [employer]. Changes in Medical Condition: None. Doing well. No complaints. Underwent MRI of L-spine on 11/09/19 at [facility]. This demonstrates indeterminate L2 VB lesion, with metastasis in DDx. Recommended bone scan as follow-up. Pain?: No Your Medications Accurate as of November 13, 2019 9:52 AM. If you have any [...] 30 tablet Refills: 3 Physical Exam: BP 146/71 (Patient Position: Sitting) Pulse 75 Temp 36.5 ??C (97.7 ??F) (Oral) Resp 16 Wt 79.3 kg (174 lb 12.8 oz) Comment: with shoes SpO2 99% BMI 33.05 kg/m?? A&Ox3, NAD. Skin: Slight pinkening of skin [...] Recommendation on Continuing Course of xrt: Cont. I reviewed the MRI result after the patient had already left the clinic. I called and left for her to call back. I will schedule follow-up bone scan as per the MRI interpretation from [facility]. documented in this encounter Plan of Treatment Not on filedocumented as of this encounter Visit Diagnoses Diagnosis Malignant neoplasm of upper-outer quadra nt of right female breast, unspecified estrogen receptor status documented in this encounter Care Teams Assistant Professor Of Chemistry Relationship Specialty Start Date End Date Mary Chinchilla APRN PCP - General Geriatric Medicine 04/24/19 [address] [place] [address] documented as of this encounter
--- OUTSIDE RECORDS SUMMARY | 2022-06-18 00:28 | XMS_ITS | Clinical Summary ---
:1950 Author Organization [facility] [place] [address] Care Team Providers Name Role Phone Mary Chinchilla APRN Primary Care Provider Allergies No known active allergies Medications Medication Sig Dispensed Refills Start Date End Date Status ibuprofen Take 600 mg by 4 04/05/2019 Acti ve (ADVIL;MOTRIN) 600 mg mouth daily as Tablet needed. LORazepam (ATIVAN) 0.5 Take 1 tablet by 15 tablet 0 05/16/2019 Active mg TabletIndications: mouth every 6 Malignant neoplasm of hours as needed upper-outer quadrant of for Anxiety right breast in female, (nausea). estrogen receptor positive b complex vitamins Take 1 capsule by 0 Active Capsule mouth daily. potassium chloride ER Take 1 tablet by 90 tablet 3 04/08/2021 Active (K-DUR;KLOR-CON) 10 mEq mouth daily. Tab Sust.Rel. Particle/CrystalIndicat ions: Hormone receptor positive malignant neoplasm of breast, unspecified laterality, Breast 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, unspecified laterality, Hypokalemia irbesartan-hydrochlorot Take 1 tablet by 0 1 Active hiazide (AVALIDE) mouth daily. 150-12.5 mg Tablet letrozole (Femara) 2.5 Take 1 tablet by 90 tablet 11 06/14/2022 Active mg TabletIndications: mouth daily. Hormone receptor positive malignant neoplasm of breast, unspecified laterality, Breast 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, unspecified laterality, Hypokalemia Active Problems Problem Noted Date Breast 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, uns pecified laterality 05/10/2019 Hormone receptor positive malignant neoplasm of breast 05/10/2019 Encounters Date Type Specialty Care Team Description 06/14/2022 Refill Hematology and Hinds, Amita P, Hormone r eceptor positive malignant neoplasm of breast, unspecified laterality; Oncology SCIENCE PROFESSOR Breast cancer m etastasized to axillary lymph node, unspecified laterality; Hypokalemia 03/30/2022 Office Visit Hematology and Sherif, Breast 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, unspecified laterality; Oncology MD Minor Hormone recepto r positive malignant neoplasm of right breast from Last 3 Months Social History Tobacco Use Types Packs/Day Years Used Date Never Smoker Smokeless Tobacco: Never Used Alcohol Use Standard Drinks/Week Comments Not Currently 0 (1 standard drink = 0.6 oz pure alcoho l) Sex Assigned at Date Recorded Not on file Last Filed Vital Signs Vital Sign Reading [...] Mass Index 35.9 03/30/2022 12:52 PM EDT Plan of Treatment Health Maintenance Due Date Last Done Comments Covid-19 Vaccine (#1) 1954 Hepatitis C Screening 1967 Lipid Screening 1967 Tdap adult 1968 Tetanus vaccine 1968 Breast Cancer Share Decision Needed 1989 Colonoscopy 1994 Breast Cancer screening 1999 Zoster vaccine (1 of 2) 1999 Advance Directive 2004 Bone Density Scan 2014 Pneumoccocal Vaccine: 65+ (1 - PCV) 2014 Influenza (Flu) vaccine (1 of 1 - Influenza standard 07/15/2022 series) Procedures Procedure Name Priority Date/Time Associated Diagnosis Comme nts LAB SCAN 03/29/2022 12:00 AM Results for this EDT procedure are i n the results section . from Last 3 Months Results SCAN DOC: LAB (03/29/2022 12:00 AM EDT) Narrative This result has an attachment that is no t available. Unknown MEDIA MGR SCAN EXT ORDR/RSLT from Last 3 Months Insurance Payer Benefit Plan / Subscriber ID Effective Phone Address T ype Group Dates ILYA MARTINEZ [id number] 2018-Pres [phone] [employer] ent [phone] [place] [address] Care Teams Snagger Relationship Specialty Start Date End Date Mary Chinchilla APRN PCP - General Geriatric Medicine 04/24/[address] [place], [place] [id number]
--- OUTSIDE RECORDS SUMMARY | 2022-06-18 00:29 | XMS_ITS | Encounter Summary ---
:1950 Author Organization [facility] [place] [address] Care Team Providers Name Role Phone Mary Chinchilla APRN Primary Care Provider Reason for Visit Reason Comments Chemotherapy Cycle 3 Day 8 Taxol High Dollar Medication (Routine) - Specialty Diagnoses / Procedures Referred By Contact Refer red To Contact Hematology and Diagnoses Malignant neoplasm of unspecified site of unspecified female breast Secondary and unspecified malignant neoplasm of axilla and upper limb lymph nodes SD @ 930 Taxol (Paclitaxel) - Weekly Minor [facility] Hem Onc Infus ion Oncology Procedures TC PACLITAXEL, 1MG, INJ INFUSION ROOM [address] [place] [phone] HEMATOLOGY/[place] [address] Referral ID Status Reason Start Date Expiration Date Visits V isits Requested Authorized [id number] 07/17/2019 07/16/2020 99 99 Encounter Details Date Type Department Care Team Description 09/04/2019 Infusion Hematology Oncology at [facility] 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, unspecified laterality; [facility] 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, unspecified laterality [address] [place] [phone] Social History Tobacco Use Types Packs/Day Years Used Date Never Smoker Smokeless Tobacco: Never Used Alcohol Use Standard Drinks/Week Comments Not Currently 0 (1 standard drink = 0.6 oz pure alcoho l) Sex Assigned at Date Recorded Not on file documented as of this encounter Progress Notes Michelle Valverde RN - 09/04/2019 11:00 AM EDT INFUSION THERAPY ADMINISTRATION NOTES DIAGNOSIS: Breast cancer CYCLE #3: Day 8 REASON FOR VISIT: Paclitaxel SUBJECTIVE: Nery offers no complaints. OBJECTIVE: Seen by Chris Amaro APRN. Ready to treat. LAB DATA: Done today at [facility]. Reviewed with Elin Amaro APRN in clinic and WNL for treatment. IV ACCESS: Port already accessed by OSH for lab draw; dressing CDI. Port flushed with 20cc NS and 500 units Heparin then de-accessed after completion of treatment. Pre administration: Chemotherapy orders independently verified for drug name, route, and dosage per patient's height, weight and BSA by Michelle Valverde, EDE and Luis Grullon [facility]. REACTIONS (DESCRIPTION, TIME, INTERVENTION AND EFFECTIVENESS) none ASSESSMENT: Nery was awake, alert and tolerated treatment well. PLAN: Return to clinic per routine. documented in this encounter Plan of Treatment Not on filedocumented as of this encounter Visit Diagnoses Diagnosis Breast cancer metastasized to axillary l ymph node, unspecified laterality Hormone receptor positive malignant neop lasm of breast, unspecified laterality documented in this encounter Administered Medications Inactive Administered Medications - up to 3 most recent administrations Medication Order MAR Action Action Date Dose Rate Site dexamethasone (DECADRON) injection Given 09/04/2019 10:39 AM EDT 10 mg 10 mg 10 mg, Intravenous, ONCE, 1 dose, On Tue09/04/19 at 1045, Administer 30 minutes prior to PACLitaxel diphenhydrAMINE (BENADRYL) capsule 50 mg Given 09/04/2019 10:38 AM EDT 25 mg 50 mg, Oral, ONCE, 1 dose, On Tue09/04/19 at 1045, Administer 30 minutes prior to PACLitaxel, Routine famotidine (PEPCID) injection 20 mg Given 09/04/2019 10:45 AM EDT 20 mg 20 mg, Intravenous, ONCE, 1 dose, On Tue09/04/19 at 1045, Administer 30 minutes prior to PACLitaxel heparin, porcine 100 unit/mL flush 500 Given 09/04/2019 12:29 PM EDT 500 Units Units 500 Units, Intravenous, ONCE PRN, Starting on Tue09/04/19 at 1021, Until Tue09/04/19 at 1546, Line Care, Refer to Intravenous (IV) Procedure: Accessing Implanted Vascular Access Devices (654) procedure and/or Intravenous (IV) Job Aid: Adult Flushing & Catheter Care (0006) job aid for additional information regarding guidelines and administration., Routine ondansetron (ZOFRAN) tablet 8 mg Given 09/04/2019 10:38 AM EDT 8 mg 8 mg, Oral, ONCE, 1 dose, On Tue09/04/19 at 1045, Administer prior to chemotherapy, Routine PACLitaxel (TAXOL) 155 mg in New Bag 09/04/2019 11:26 AM EDT 155 m g 276 mL/hr sodium chloride 0.9% Non-PVC 275.8333 mL chemo infusion 155 mg (rounded from 155.2 mg = 80 mg/m2/dose ? 1.94 m2 Treatment Plan BSA from Recorded weight), Intravenous, ONCE, 1 dose, On Tue09/04/19 at 1145, Administer over 60 Minutes, Warning Vesicant/Irritant Medication sodium chloride 0.9 % (flush) flush 5-20 mL Given 09/04/2019 12:29 PM EDT 20 mLs 5-20 mL, Intravenous, EVERY 1 MIN PRN, Starting on Tue09/04/19 at 1021, Until Tue09/04/19 at 1546, Line Care, Flush pertains to all indwelling lines. Flush per protocol found in the job aid using the link provided on this medication record. Refer to Intravenous (IV) Job Aid: Adult Flushing & Catheter Care (6265) job aid for additional information regarding guidelines and administration., Routine documented in this encounter Care Teams Screen Operator Relationship Specialty Start Date End Date Mary Chinchilla APRN PCP - General Geriatric Medicine 04/24/[address] [place] [address] documented as of this encounter
--- OUTSIDE RECORDS SUMMARY | 2022-06-18 00:29 | XMS_ITS | Encounter Summary ---
:1950 Author Organization [facility] [place] [address] Care Team Providers Name Role Phone Mary Chinchilla APRN Primary Care Provider Encounter Details Date Type Department Care Team Description 08/28/2019 Office Visit Hematology/Oncology Soni Amaro east cancer at [facility] NIC Cooper metastasized to [facility] [address] [place] [address] axillary lymph node, [place], [place] unspeci fied laterality [phone] Social History Tobacco Use Types Packs/Day Years Used Date Never Smoker Smokeless Tobacco: Never Used Alcohol Use Standard Drinks/Week Comments Not Currently 0 (1 standard drink = 0.6 oz pure alcoho l) Sex Assigned at Date Recorded Not on file documented as of this encounter Last Filed Vital Signs Vital Sign Reading Time Taken Comments Blood Pressure 144/64 08/28/2019 9:50 AM EDT Pulse 78 08/28/2019 9:50 AM EDT Temperature 36.6 ??C (97.9 ??F) 08/28/2019 9:50 AM EDT Respiratory Rate 18 08/28/2019 9:50 AM EDT Oxygen Saturation 100% 08/28/2019 9:50 AM EDT Inhaled Oxygen Concentration - - Weight 85.6 kg (188 lb 12.8 oz) 08/28/2019 9:50 AM EDT Height 154.9 cm (5' 0.98) 08/28/2019 9:50 AM EDT Body Mass Index 35.69 08/28/2019 9:50 AM EDT documented in this encounter Progress Notes Soni Amaro, PASTE WORKER - 08/28/2019 10:00 AM EDT Subjective: Patient ID: Nery Rueda is a 69 y.o. female. 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 Dot Hull performed biopsy Pathology IDC, ER+ 90% NH 25-50%, HER2 IHC 0 04/04/19 right breast mastectomy with sentinel lymph node biopsy Dr. Hull 05/16/19 satrted dd AC. Interval History: Ms. Rueda is in clinic for follow-up appointment on breast cancer. She received 4 cycles of AC. Sheis now being treated with weekly Taxol x 12 weeks. Overall, she is tolerating treatment well, exceptfor some taste changes. She reports mild numbness and tingling in her fingertips and her feet. She can still button and hold a coffee cup. She denies fever, chills, night sweats, chills or unusual bleeding. PMH, PSH, FH, and SH: Except as mentioned in the interim history, unchanged since last office visit. Review of Systems Constitutional: Negative. HENT: Negative. Eyes: Negative. Respiratory: Negative. Cardiovascular: Negative. Gastrointestinal: Negative. Endocrine: Negative. Genitourinary: Negative. Musculoskeletal: Negative. Skin: Negative. Allergic/Immunologic: Negative. Neurological: Negative. Hematological: Negative. Psychiatric/Behavioral: Negative. Objective: Physical Exam Constitutional: She is oriented to person, place, and time. She appears well- developed and well-nourished. HENT: Head: Normocephalic and atraumatic. Nose: Nose normal. Mouth/Throat: Oropharynx is clear and moist. Eyes: Conjunctivae and EOM are normal. Neck: Normal range of motion. Neck supple. Cardiovascular: Normal rate and regular rhythm. Pulmonary/Chest: Effort normal and breath sounds normal. Abdominal: Soft. Bowel sounds are normal. Musculoskeletal: Normal range of motion. Neurological: She is alert and oriented to person, place, and time. Skin: Skin is warm and dry. Psychiatric: She has a normal mood and affect. Her behavior is normal. Vitals reviewed. Vitals: BP 144/64 (Patient Position: Sitting) Pulse 78 Temp 36.6 ??C (97.9 ??F) (Oral) Resp 18 Ht 154.9 cm (5' 0.98) Wt 85.6 kg (188 lb 12.8 oz) SpO2 100% BMI 35.69 kg/m?? 08/28/19 LABs: CBC: WBC 2.37, Hgb./Hct. 9.4/29.3, Plts. 270, ANC 1.59. Chem: Na+/K+ 143/3.7, BUN/Creat. 14/0.8, AST 36, ALT 84, Alk. Phos. 61. Assessment and Plan: 1. Breast cancer. Currently being treated with weekly Taxol. 2. Reviewed lab results with patient. Proceed with weekly Taxol infusion today. 3. RTC in 1 week for labs and toxicity assessment prior to infusion. Soni Amaro, MSN, PASTE WORKER, AOCNP documented in this encounter Plan of Treatment Not on filedocumented as of this encounter Visit Diagnoses Diagnosis Breast cancer metastasized to axillary l ymph node, unspecified laterality documented in this encounter Care Teams Director Of Patient Financial Services Relationship Specialty Start Date End Date Mary Chinchilla APRN PCP - General Geriatric Medicine 04/24/[address] [place] [address] documented as of this encounter
--- OUTSIDE RECORDS SUMMARY | 2022-06-18 00:29 | XMS_ITS | Encounter Summary ---
:1950 Author Organization [facility] [place] [address] Care Team Providers Name Role Phone Mary Chinchilla APRN Primary Care Provider Encounter Details Date Type Department Care Team Description 08/14/2019 Office Visit Hematology/Oncology Soni Amaro east cancer at [facility] metastasized to [facility] [address] [place] [address] axillary lymph node, [place], [place] unspeci fied laterality [phone] Social History Tobacco Use Types Packs/Day Years Used Date Never Smoker Smokeless Tobacco: Never Used Alcohol Use Standard Drinks/Week Comments Not Currently 0 (1 standard drink = 0.6 oz pure alcoho l) Sex Assigned at Date Recorded Not on file documented as of this encounter Last Filed Vital Signs Vital Sign Reading Time Taken Comments Blood Pressure 159/77 08/14/2019 10:13 AM EDT Pulse 83 08/14/2019 10:13 AM EDT Temperature 36.9 ??C (98.4 ??F) 08/14/2019 10:13 AM EDT Respiratory Rate 18 08/14/2019 10:13 AM EDT Oxygen Saturation 100% 08/14/2019 10:13 AM EDT Inhaled Oxygen Concentration - - Weight 86.4 kg (190 lb 6.4 oz) 08/14/2019 10:13 AM EDT Height 154.9 cm (5' 0.98) 08/14/2019 10:13 AM EDT Body Mass Index 35.99 08/14/2019 10:13 AM EDT documented in this encounter Progress Notes Soni Amaro, TUBE SIZER OPERATOR - 08/14/2019 10:30 AM EDT Subjective: Patient ID: Nery Rueda is a 69 y.o. female. 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 Dot Hull performed biopsy Pathology IDC, ER+ 90% NH 25-50%, HER2 IHC 0 -04/04/19 right breast mastectomy with sentinel lymph node biopsy Dr. Hull -05/16/19 satrted dd AC. Interval History: Ms. Rueda is in clinic for follow-up appointment on breast cancer. She received 4 cycles of AC. Sheis now being treated with weekly Taxol x 12 weeks. Overall, she tolerated the 1st treatment well, except for some taste changes. She reports mild numbness and tingling in her feet. She denies pain, fever, chills, night sweats, chills or unusual bleeding. PMH, PSH, FH, and SH: Except as mentioned in the interim history, unchanged since last office visit. Review of Systems Constitutional: Negative. HENT: Negative. Eyes: Negative. Respiratory: Negative. Cardiovascular: Negative. Gastrointestinal: Negative. Endocrine: Negative. Genitourinary: Negative. Musculoskeletal: Negative. Skin: Negative. Allergic/Immunologic: Negative. Neurological: Positive for numbness. Hematological: Negative. Psychiatric/Behavioral: Negative. Objective: Physical Exam [...] behavior is normal. Vitals reviewed. Vitals: BP 159/77 (Patient Position: Sitting) Pulse 83 Temp 36.9 ??C (98.4 ??F) (Oral) Resp 18 Ht 154.9 cm (5' 0.98) Wt 86.4 kg (190 lb 6.4 oz) SpO2 100% BMI 35.99 kg/m?? 08/14/19 LABs: WBC 3.54, Hgb./Hct. 9.6/29.0, Plts. 257, ANC 2.3 Chem: Na+/K+141/4.0, BUN/Creat. 20H/0.8, AST 31, ALT 77, Alk. Phos. 61, Alb 3.3L. Assessment and Plan: 1. Breast cancer. Currently being treated with weekly Paclitaxel. 2. Reviewed lab results with patient. Proceed with day 8, cycle#2 infusion today. 3. RTC in 1 week for labs and toxicity assessment prior to infusion. Soni Amaro, MSN, TUBE SIZER OPERATOR, AOCNP documented in this encounter Plan of Treatment Not on filedocumented as of this encounter Visit Diagnoses Diagnosis Breast cancer metastasized to axillary l ymph node, unspecified laterality documented in this encounter Care Teams Manager Student Services Relationship Specialty Start Date End Date Mary Chinchilla APRN PCP - General Geriatric Medicine 04/24/[address] [place] [address] [place] [address] documented as of this encounter
--- OUTSIDE RECORDS SUMMARY | 2022-06-18 00:29 | XMS_ITS | Encounter Summary ---
:1950 [place] [address] Care Team Providers Name Role Phone Mary Chinchilla APRN Primary Care Provider Reason for Visit Reason Comments Chemotherapy Cycle 3, Day 1; paclitaxel High Dollar Medication (Routine) - Specialty Diagnoses / Procedures Referred By Contact Refer red To Contact Hematology and Diagnoses Malignant neoplasm of unspecified site of unspecified female breast Secondary and unspecified malignant neoplasm of axilla and upper limb lymph nodes SD @ 930 Taxol (Paclitaxel) - Weekly Minor Gorman Stj Hem Onc Infus ion Oncology Procedures TC PACLITAXEL, 1MG, INJ INFUSION ROOM [address] [place] [phone] HEMATOLOGY/[place] [address] Referral ID Status Reason Start Date Expiration Date Visits V isits Requested Authorized [id number] 07/17/2019 07/16/2020 99 99 Encounter Details Date Type Department Care Team Description 08/28/2019 Infusion Hematology Oncology at [facility] 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, unspecified laterality; 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 OBJECTIVE: Seen by Chris Amaro APRN. Ready to treat. LAB DATA: Done today at [facility]. Reviewed with Elin Amaro APRN in clinic and WNL for treatment. IV ACCESS: Port already accessed by OSH for lab draw; dressing CDI, No blood return; cathflo instilled; blood erturn after ~40 min, removed cathflo. Port flushed with 20cc NS and 500 units Heparin thende-accessed after completion of treatment. Pre administration: Chemotherapy orders independently verified for drug name, route, and dosage per patient's height, weight and BSA by GERONIMO SPRAGUE, EDE and Luis Grullon [facility]. REACTIONS (DESCRIPTION, TIME, INTERVENTION AND EFFECTIVENESS) none [...] MAR Action Action Date Dose Rate Site alteplase (CATHFLO) injection 2 mg Given 08/28/2019 10:16 AM EDT 2 mg 2 mg, Intravenous, ONCE PRN, Starting on Tue08/28/19 at 0942, Until Tue08/28/19 at 1748, Line Occlusion, Refer to Cathflo Activase (Alteplase) Administration policy for additional information regarding guidelines and administration., Routine dexamethasone (DECADRON) injection 10 mg Given 08/28/2019 11:13 AM EDT 10 mg 10 mg, Intravenous, ONCE, 1 dose, On Tue08/28/19 at 1115, Administer 30 minutes prior to PACLitaxel diphenhydrAMINE (BENADRYL) capsule 50 mg Given 08/28/2019 11:11 AM EDT 25 mg 50 mg, Oral, ONCE, 1 dose, On Tue08/28/19 at 1115, Administer 30 minutes prior to PACLitaxel, Routine famotidine (PEPCID) injection 20 mg Given 08/28/2019 11:13 AM EDT 20 mg 20 mg, Intravenous, ONCE, 1 dose, On Tue08/28/19 at 1115, Administer 30 minutes prior to PACLitaxel heparin, porcine 100 unit/mL flush 500 Given 08/28/2019 1:10 PM EDT 500 Units Units 500 Units, Intravenous, ONCE PRN, Starting on Tue08/28/19 at 1045, Until Tue08/28/19 at 1748, Line Care, Refer to Intravenous (IV) Procedure: Accessing Implanted Vascular Access Devices (654) procedure and/or Intravenous (IV) Job Aid: Adult Flushing & Catheter Care (8897) job aid for additional information regarding guidelines and administration., Routine ondansetron (ZOFRAN) tablet 8 mg Given 08/28/2019 11:11 AM EDT 8 mg 8 mg, Oral, ONCE, 1 dose, On Tue08/28/19 at 1115, Administer prior to chemotherapy, Routine PACLitaxel (TAXOL) 155 mg in New Bag 08/28/2019 12:02 PM EDT 155 m g 276 mL/hr sodium chloride 0.9% Non-PVC 275.8333 mL chemo infusion 155 mg (rounded from 155.2 mg = 80 mg/m2/dose ? 1.94 m2 Treatment Plan BSA from Recorded weight), Intravenous, ONCE, 1 dose, On Tue08/28/19 at 1200, Administer over 60 Minutes, Warning Vesicant/Irritant Medication sodium chloride 0.9 % (flush) flush 5-20 mL Given 08/28/2019 1:09 PM EDT 20 mLs 5-20 mL, Intravenous, EVERY 1 MIN PRN, Starting on Tue08/28/19 at 1045, Until Tue08/28/19 at 1748, Line Care, Flush pertains to all indwelling lines. Flush per protocol found in the job aid using the link provided on this medication record. Refer to Intravenous (IV) Job Aid: Adult Flushing & Catheter Care (4745) job aid for additional information regarding guidelines and administration., Routine documented in this encounter Care Teams Beam Machine Operator Relationship Specialty Start Date End Date Mary Chinchilla APRN PCP - General Geriatric Medicine 04/24/[address] [place] [address] documented as of this encounter
--- OUTSIDE RECORDS SUMMARY | 2022-06-18 00:29 | XMS_ITS | Encounter Summary ---
:1950 Author Organization [facility] [place] [address] Care Team Providers Name Role Phone Mary Chinchilla APRN Primary Care Provider Reason for Visit Reason Comments Chemotherapy Cycle 4 Day 1 Paclitaxel High Dollar Medication (Routine) - Specialty Diagnoses / Procedures Referred By Contact Refer red To Contact Hematology and Diagnoses Malignant neoplasm of unspecified site of unspecified female breast Secondary and unspecified malignant neoplasm of axilla and upper limb lymph nodes SD @ 930 Taxol (Paclitaxel) - Weekly Minor Gorman Stj Hem Onc Infus ion Oncology Procedures TC PACLITAXEL, 1MG, INJ INFUSION ROOM [address] [place] [phone] HEMATOLOGY/[place] [address] Referral ID Status Reason Start Date Expiration Date Visits V isits Requested Authorized [id number] 07/17/2019 07/16/2020 99 99 Encounter Details Date Type Department Care Team Description 09/18/2019 Infusion Hematology Oncology at [facility] 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, unspecified laterality; [facility] 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, unspecified laterality [address] [place] [address] [phone] Social History Tobacco Use Types Packs/Day Years Used Date Never Smoker Smokeless Tobacco: Never Used Alcohol Use Standard Drinks/Week Comments Not Currently 0 (1 standard drink = 0.6 oz pure alcoho l) Sex Assigned at Date Recorded Not on file documented as of this encounter Last Filed Vital Signs Vital Sign Reading Time Taken Comments Blood Pressure 142/64 09/18/2019 10:22 AM EST Pulse 85 09/18/2019 10:22 AM EST Temperature 36.5 ??C (97.7 ??F) 09/18/2019 10:22 AM EST Respiratory Rate 18 09/18/2019 10:22 AM EST Oxygen Saturation 98% 09/18/2019 10:22 AM EST Inhaled Oxygen Concentration - - Weight 85.6 kg (188 lb 12.8 oz) 09/18/2019 10:22 AM EST Height 154.9 cm (5' 0.98) 09/18/2019 10:22 AM EST Body Mass Index 35.69 09/18/2019 10:22 AM EST documented in this encounter Progress Notes Michelle Valverde RN - 09/18/2019 10:00 AM EST INFUSION THERAPY ADMINISTRATION NOTES DIAGNOSIS: Breast cancer CYCLE #4: Day 1 REASON FOR VISIT: Paclitaxel SUBJECTIVE: Nery offers no complaints. OBJECTIVE: VSS, weight stable LAB DATA: WBC 2.45, HGB/HCT 9.6/29.9, PLT 281, ANC 1.57, BUN/Cr 15/0.81 IV ACCESS: Port already accessed by OSH for lab draw; dressing CDI. [facility] able to get blood return for lab draw but none when she got here. Her port is very positional. Port flushed with 20cc NS and 500units Heparin then de-accessed after completion of treatment. Pre administration: Chemotherapy orders independently verified for drug name, route, and dosage per patient's height, weight and BSA by Michelle Valverde, EDE and Luis Grullon [facility]. REACTIONS (DESCRIPTION, TIME, INTERVENTION AND EFFECTIVENESS) none ASSESSMENT: Nery was awake, alert and tolerated treatment well. PLAN: Return to clinic per routine. documented in this encounter Plan of Treatment Not on filedocumented as of this encounter Procedures Procedure Name Priority Date/Time Associated Comments Diagnosis ULTRASOUND SCAN 09/18/2019 12:00 AM Resul ts for this (SCAN) EST procedure are i n the results section. documented in this encounter Results SCAN DOC: ULTRASOUND (09/18/2019 12:00 AM EST) Narrative 09/18/2019 12:00 AM EST This result has an attachment that is no t available. Ordered by an unspecified provider. 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, unspecified laterality documented in this encounter Administered Medications Inactive Administered Medications - up to 3 most recent administrations Medication Order MAR Action Action Date Dose Rate Site dexamethasone (DECADRON) injection Given 09/18/2019 11:05 AM EST 10 mg 10 mg 10 mg, Intravenous, ONCE, 1 dose, On Tue09/18/19 at 1045, Administer 30 minutes prior to PACLitaxel diphenhydrAMINE (BENADRYL) capsule 50 mg Given 09/18/2019 10:55 AM EST 25 mg 50 mg, Oral, ONCE, 1 dose, On Tue09/18/19 at 1045, Administer 30 minutes prior to PACLitaxel, Routine famotidine (PEPCID) injection 20 mg Given 09/18/2019 11:01 AM EST 20 mg 20 mg, Intravenous, ONCE, 1 dose, On Tue09/18/19 at 1045, Administer 30 minutes prior to PACLitaxel heparin, porcine 100 unit/mL flush 500 Given 09/18/2019 1:13 PM EST 500 Units Units 500 Units, Intravenous, ONCE PRN, Starting on Tue09/18/19 at 1024, Until Tue09/18/19 at 1531, Line Care, Refer to Intravenous (IV) Procedure: Accessing Implanted Vascular Access Devices (904) procedure and/or Intravenous (IV) Job Aid: Adult Flushing & Catheter Care (6274) job aid for additional information regarding guidelines and administration., Routine ondansetron (ZOFRAN) tablet 8 mg Given 09/18/2019 10:55 AM EST 8 mg 8 mg, Oral, ONCE, 1 dose, On Tue09/18/19 at 1045, Administer prior to chemotherapy, Routine PACLitaxel (TAXOL) 155 mg in New Bag 09/18/2019 12:00 PM EST 155 m g 276 mL/hr sodium chloride 0.9% Non-PVC 275.8333 mL chemo infusion 155 mg (rounded from 155.2 mg = 80 mg/m2/dose ? 1.94 m2 Treatment Plan BSA from Recorded weight), Intravenous, ONCE, 1 dose, On Tue09/18/19 at 1145, Administer over 60 Minutes, Warning Vesicant/Irritant Medication sodium chloride 0.9 % (flush) flush 5-20 mL Given 09/18/2019 1:13 PM EST 20 mLs 5-20 mL, Intravenous, EVERY 1 MIN PRN, Starting on Tue09/18/19 at 1024, Until Tue09/18/19 at 1531, Line Care, Flush pertains to all indwelling lines. Flush per protocol found in the job aid using the link provided on this medication record. Refer to Intravenous (IV) Job Aid: Adult Flushing & Catheter Care (5170) job aid for additional information regarding guidelines and administration., Routine documented in this encounter Care Teams Parlor Chaperone Relationship Specialty Start Date End Date Mary Chinchilla APRN PCP - General Geriatric Medicine 04/24/[address] [place] [address] documented as of this encounter
--- OUTSIDE RECORDS SUMMARY | 2022-06-18 00:29 | XMS_ITS | Encounter Summary ---
:1950 Author Organization [facility] [place] [address] Care Team Providers Name Role Phone Mary Chinchilla APRN Primary Care Provider Encounter Details Date Type Department Care Team Description 09/04/2019 Notes Only Hematology/Oncology at Martine Negron MSW [facility] OFFICE OF CARE [address] [place] [address] [phone] Social History Tobacco Use Types Packs/Day Years Used Date Never Smoker Smokeless Tobacco: Never Used Alcohol Use Standard Drinks/Week Comments Not Currently 0 (1 standard drink = 0.6 oz pure alcoho l) Sex Assigned at Date Recorded Not on file documented as of this encounter Progress Notes Martine Negron MSW - 09/04/2019 11:18 AM EDT Follow up with pt during infusion today. She reports she is doing fairly well day today. Not much ofan appetite and she stated she needs to try to get in more protein. Still working about 2 shifts a week. Offered support. Reminded pt of [employer] availability and will continue to follow for support and resources. documented in this encounter Plan of Treatment Not on filedocumented as of this encounter Visit Diagnoses Not on filedocumented in this encounter Care Teams Rn Private Duty Relationship Specialty Start Date End Date Mary Chinchilla APRN PCP - General Geriatric Medicine 04/24/19 [address] [place] [address] documented as of this encounter
--- OUTSIDE RECORDS SUMMARY | 2022-06-18 00:29 | XMS_ITS | Encounter Summary ---
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, unspecified laterality; [address] [facility] Encounter for antineoplastic chemotherapy; [place], [place] CENTER High risk medication use; [phone] HEMATOLOGY/ONCOLO Peripheral polyneuropathy [phone] [place], [place] [address] Social History Tobacco Use Types Packs/Day Years Used Date Never Smoker Smokeless Tobacco: Never Used Alcohol Use Standard Drinks/Week Comments Not Currently 0 (1 standard drink = 0.6 oz pure alcoho l) Sex Assigned at Date Recorded Not on file documented as of this encounter Last Filed Vital Signs Vital Sign Reading Time Taken Comments Blood Pressure 143/68 09/25/2019 10:35 AM EST Pulse 84 09/25/2019 10:35 AM EST Temperature 36.7 ??C (98.1 ??F) 09/25/2019 10:35 AM EST Respiratory Rate 16 09/25/2019 10:35 AM EST Oxygen Saturation 99% 09/25/2019 10:35 AM EST Inhaled Oxygen Concentration - - Weight 83 kg (183 lb) 09/25/2019 10:35 AM EST Height 154.9 cm (5' 0.98) 09/25/2019 10:35 AM EST Body Mass Index 34.6 09/25/2019 10:35 AM EST documented in this encounter Progress Notes Minor Gorman MD - 09/25/2019 10:00 AM EST Diagnosis: R 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 Dot Hull performed biopsy Pathology IDC, ER+ 90% MS 25-50%, HER2 IHC 0 -04/04/19 right breast mastectomy with sentinel lymph node biopsy Dr. Hull -05/16/19 satrted dd AC. Interval history: Ms. Rueda is in clinic for follow-up appointment on breast cancer. She received 10 doses of weekly Taxol. Tolerates treatment reasonably well with mild numbness and tingling can his fingertips and feet and some skin discoloration. Denies any nausea, vomiting, fever, chills or pain. PMH: No interval changes since last visit [...] resource strain: Not on file ??? Food insecurity: Worry: Not on file Inability: Not on file ??? Transportation needs: Medical: Not on file Non-medical: Not on file Tobacco Use ??? Smoking status: Never Smoker ??? Smokeless tobacco: Never Used Substance and Sexual Activity ??? Alcohol use: Not Currently ??? Drug use: Not on file ??? Sexual activity: Not on file Lifestyle ??? Physical activity: Days per week: Not on file Minutes per session: Not on file ??? Stress: Not on file Relationships ??? Social connections: Talks on phone: Not on file Gets together: Not on file Attends evangelical service: Not on file Active member of club or organization: Not on file Attends meetings of clubs or organizations: Not on file Relationship status: Not on file ??? Intimate partner violence: Fear of current or ex partner: Not [...] breast. Examination was done in presence of RN Jewels. no tenderness or deformity Heart: Regular rate [...] axillary nodes normal Neurologic: Normal Vitals BP 143/68 (Patient Position: Sitting) Pulse 84 Temp 36.7 ??C (98.1 ??F) (Oral) Resp 16 Ht 154.9 cm (5' 0.98) Wt 83 kg (183 lb) SpO2 99% BMI 34.60 kg/m?? Pathology: 02/28/19 I - Outside slide(s) labeled [id number], collection date 02/28/2019. A - Needle biopsies: ??Right breast, 10 o'clock Diagnosis: ?Invasive ductal carcinoma Microcalcifications: ??N/A ER, MS, and HER2 studies (by report): ER: Positive (>90%, strong) MS: Positive (25%, moderate to strong) HER2 IHC: Negative (score 0) B - Needle biopsies: ??Right breast, 9 o'clock Diagnosis: ?Invasive ductal carcinoma Microcalcifications: ??N/A ER, MS, and HER2 studies (by report): ER: Positive (>90%, strong) MS: Positive (50%, moderate to strong) HER2 IHC: Negative (score 0) 04/04/19 A - Right breast, total mastectomy: - Invasive ductal carcinoma, two foci (see Synoptic Report and Discussion) - Ductal carcinoma in-situ - Fibrocystic changes B - Rosie lymph node #1, excision: Two lymph nodes [...] ?? Negative for extensive intraductal ?component (EIC) [id number] ? Location: [facility] The signing pathologist has (i) examined the relevant preparation(s) for the specimen(s) and (ii) rendered or confirmed the diagnosis(es). . ? Surgical Pathology DIAGNOSIS CONSULTATION CASE I - Outside slide(s) labeled [id number], collection date 02/28/2019. A - Needle biopsies: ??Right breast, 10 o'clock Diagnosis: ?Invasive ductal carcinoma Microcalcifications: ??N/A ER, MS, and HER2 studies (by report): ER: Positive (>90%, strong) MS: Positive (25%, moderate to strong) HER2 IHC: Negative (score 0) B - Needle biopsies: ??Right breast, 9 o'clock Diagnosis: ?Invasive ductal carcinoma Microcalcifications: ??N/A ER, MS, and HER2 studies (by report): ER: Positive (>90%, strong) MS: Positive (50%, moderate to strong) HER2 IHC: Negative (score 0) II - Outside slide(s) labeled [id number], collection date 04/04/2019. A - Right breast, total mastectomy: - Invasive ductal carcinoma, two foci (see Synoptic Report and Discussion) - Ductal carcinoma in-situ - Fibrocystic changes B - Rosie lymph node #1, excision: Two lymph nodes positive for metastatic carcinoma (2/2) Synoptic Report Specimen ?Procedure: ??Total mastectomy ?Specimen Laterality: ?? Right Tumor ?Histologic Type: ?? Invasive carcinoma of no special type (ductal, not ? otherwise specified) ?Histologic Grade (Poca Histologic Score) ? Glandular (Acinar) / Tubular [...] ?? Cannot be determined ? Number of Rosie Nodes Examined: ?2 Pathologic Stage Classification (pTNM, AJCC 8th Edition) ?TNM Descriptors: ?? m (multiple foci of invasive carcinoma) ?Primary Tumor (Invasive Carcinoma) (pT): ?pT2 ?Regional Lymph Nodes (pN) ? Modifier: ??(sn): Only sentinel node(s) evaluated. Category (pN): ?? pN1a Tumor Block(s): ?? A7 9 o'clock tumor; ??A10 10 o'clock tumor DISCUSSION The two foci of invasive carcinoma have similar morphology. Labs: 09/25/2019 sodium 143, potassium 3.9, ALT 70.7, TB 0.4, 58, 0.5, WBC 2.53, hemoglobin 10.1, platelet count 265, ANC 1.55. 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 Hull -05/16/19 - 07/03/19 4 cycles of AC -07/16/19 started weekly Taxol. We discussed prognosis of breast cancer. According [...] cancer deaths after 15 years Nery completed fourth cycle of AC. She is currently on weekly paclitaxel. Tolerates treatment wellwith grade 1 peripheral neuropathy, skin discoloration. Proceed with 11th dose of weekly Taxol. She will follow with radiation oncologist Dr. Rae next week We will start paclitaxel weekly today #Peripheral neuropathy: Grade 1 Plan: 1. Weekly Taxol today 2. Next visit in 1 weeks with blood work and weekly Taxol The plan was discussed with the patient in details. All questions were answered to patient's satisfaction. I would like to thank Dr. Hull and Mary Chinchilla for allowing me to participate in the care of this wonderful lady documented in this encounter Plan of Treatment Not on filedocumented as of this encounter Procedures Procedure Name Priority Date/Time Associated Diagnosis Comme nts LAB SCAN 09/25/2019 12:00 AM Results for this EST procedure are i n the results section . documented in this encounter Results SCAN DOC: LAB (09/25/2019 12:00 AM EST) Narrative 09/25/2019 12:00 AM EST This result has an attachment that is no t available. Ordered by an unspecified provider. 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
--- OUTSIDE RECORDS SUMMARY | 2022-06-18 00:29 | XMS_ITS | Encounter Summary ---
:1950 Author Organization [facility] [place] [address] Care Team Providers Name Role Phone Mary Chinchilla APRN Primary Care Provider Reason for Visit Reason Comments Chemotherapy Cycle 2, Day 1 - Paclitaxel High Dollar Medication (Routine) - Specialty Diagnoses / Procedures Referred By Contact Refer red To Contact Hematology and Diagnoses Malignant neoplasm of unspecified site of unspecified female breast Secondary and unspecified malignant neoplasm of axilla and upper limb lymph nodes SD @ 930 Taxol (Paclitaxel) - Weekly Minor Gorman Stj Hem Onc Infus ion Oncology Procedures TC PACLITAXEL, 1MG, INJ INFUSION ROOM [address] [place] [phone] HEMATOLOGY/[place] [address] Referral ID Status Reason Start Date Expiration Date Visits V isits Requested Authorized [id number] 07/17/2019 07/16/2020 99 99 Encounter Details Date Type Department Care Team Description 08/07/2019 Infusion Hematology Oncology at [facility] 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, unspecified laterality; [facility] 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, unspecified laterality [address] [place] [phone] Social History Tobacco Use Types Packs/Day Years Used Date Never Smoker Smokeless Tobacco: Never Used Alcohol Use Standard Drinks/Week Comments Not Currently 0 (1 standard drink = 0.6 oz pure alcoho l) Sex Assigned at Date Recorded Not on file documented as of this encounter Progress Notes Nery Abrams RN - 08/07/2019 10:30 AM EDT INFUSION THERAPY ADMINISTRATION NOTES DIAGNOSIS: Breast cancer CYCLE #: Cycle 2, Day 1 - Paclitaxel REASON FOR VISIT: To receive chemotherapy SUBJECTIVE: Nery offers no complaints. OBJECTIVE: Seen by provider. Ready to treat. LAB DATA: WBC - 3.15, H/H - 10.0/30.0, Plt Ct - 276, ANC - 1.98, Lytes wnl, BUN/CR - 19/0.81 IV ACCESS: Port accessed off site. Flushes readily with brisk blood return. Pre administration: Chemotherapy orders independently verified for drug name, route, and dosage per patient's height, weight and BSA by Leny Abrams RN and Luis Grullon [facility]. REACTIONS (DESCRIPTION, TIME, INTERVENTION AND EFFECTIVENESS) none ASSESSMENT: Nery was awake, alert and tolerated treatment well. Port flushed with 20 cc's of NS and 500 units of heparin and de-accessed. PLAN: Return to clinic per routine. documented [...] Dose Rate Site dexamethasone (DECADRON) injection Given 08/07/2019 10:43 AM EDT 20 mg 10 mg 10 mg, Intravenous, ONCE, 1 dose, On Tue08/07/19 at 1045, Administer 30 minutes prior to PACLitaxel diphenhydrAMINE (BENADRYL) injection 25 mg Given 08/07/2019 10:43 AM EDT 50 mg 25 mg, Intravenous, ONCE, 1 dose, On Tue08/07/19 at 1045, Administer 30 minutes prior to PACLitaxel, Routine famotidine (PEPCID) injection 20 mg Given 08/07/2019 10:44 AM EDT 20 mg 20 mg, Intravenous, ONCE, 1 dose, On Tue08/07/19 at 1045, Administer 30 minutes prior to PACLitaxel heparin, porcine 100 unit/mL flush 500 Given 08/07/2019 1:00 PM EDT 500 Units Units 500 Units, Intravenous, ONCE PRN, Starting on Tue08/07/19 at 1026, Until Tue08/07/19 at 1739, Line Care, Refer to Intravenous (IV) Procedure: Accessing Implanted Vascular Access Devices (654) procedure and/or Intravenous (IV) Job Aid: Adult Flushing & Catheter Care (1274) job aid for additional information regarding guidelines and administration., Routine ondansetron (ZOFRAN) tablet 8 mg Given 08/07/2019 10:44 AM EDT 8 mg 8 mg, Oral, ONCE, 1 dose, On Tue08/07/19 at 1045, Administer prior to chemotherapy, Routine PACLitaxel (TAXOL) 155 mg in New Bag 08/07/2019 11:55 AM EDT 155 m g 276 mL/hr sodium chloride 0.9% Non-PVC 275.8333 mL chemo infusion 155 mg (rounded from 155.2 mg = 80 mg/m2/dose ? 1.94 m2 Treatment Plan BSA from Recorded weight), Intravenous, ONCE, 1 dose, On Tue08/07/19 at 1130, Administer over 60 Minutes, Warning Vesicant/Irritant Medication sodium chloride 0.9 % (flush) flush 5-20 mL Given 08/07/2019 1:00 PM EDT 20 mLs 5-20 mL, Intravenous, EVERY 1 MIN PRN, Starting on Tue08/07/19 at 1026, Until Tue08/07/19 at 1739, Line Care, Flush pertains to all indwelling lines. Flush per protocol found in the job aid using the link provided on this medication record. Refer to Intravenous (IV) Job Aid: Adult Flushing & Catheter Care (9685) job aid for additional information regarding guidelines and administration., Routine documented in this encounter Care Teams Capacitor Pack Press Operator Relationship Specialty Start Date End Date Mary Chinchilla APRN PCP - General Geriatric Medicine 04/24/19 [address] [place] [address] documented as of this encounter
--- OUTSIDE RECORDS SUMMARY | 2022-06-18 00:29 | XMS_ITS | Encounter Summary ---
:1950 [place] [address] Care Team Providers Name Role Phone Mary Chinchilla APRN Primary Care Provider Encounter Details Date Type Department Care Team Description 09/17/2019 Orders Only Hematology and Oncology at Minor Blanco MD [facility] Iwona holland HEMATOLOGY/[place] [address] [place] [address] [phone] (Wo rk) Social History Tobacco Use Types [...] on filedocumented in this encounter Care Teams Skip Hoist Engineer Relationship Specialty Start Date End Date Mary Chinchilla APRN PCP - General Geriatric Medicine 04/24/[address] [place] [address] documented as of this encounter
--- OUTSIDE RECORDS SUMMARY | 2022-06-18 00:29 | XMS_ITS | Encounter Summary ---
:1950 Author Organization [place] [address] Care Team Providers Name Role Phone Mary Chinchilla APRN Primary Care Provider Encounter Details Date Type Department Care Team Description 08/14/2019 Notes Only Radiation Oncology at Martine Negron MSW [facility] OFFICE OF CARE [address] [place] [phone] Social History Tobacco Use Types Packs/Day Years Used Date Never Smoker Smokeless Tobacco: Never Used Alcohol Use Standard Drinks/Week Comments Not Currently 0 (1 standard drink = 0.6 oz pure alcoho l) Sex Assigned at Date Recorded Not on file documented as of this encounter Progress Notes Martine Negron MSW - 08/14/2019 1:06 PM EDT Follow up with pt during infusion today. Pt reports she is managing fairly well day to day with the support and assistance of her . She did not identify any new needs at this time. Offered support. Reminded pt of APPLICATION INTEGRATOR availability and will continue to follow for support and resources. documented in this encounter Plan of Treatment Not on filedocumented as of this encounter Visit Diagnoses Not on filedocumented in this encounter Care Teams Stone Repairer Relationship Specialty Start Date End Date Mary Chinchilla APRN PCP - General Geriatric Medicine 04/24/19 [address] [place] [address] documented as of this encounter
--- OUTSIDE RECORDS SUMMARY | 2022-06-18 00:29 | XMS_ITS | Encounter Summary ---
:1950 Author Organization [facility] [place] [address] Care Team Providers Name Role Phone Mary Chinchilla APRN Primary Care Provider Encounter Details Date Type Department Care Team Description 09/11/2019 Office Visit Hematology/Oncology Soni Amaro east cancer at [facility] NIC Cooper metastasized to [facility] [address] [place] [address] axillary lymph node, [place], [place] unspeci fied laterality [phone] Social History Tobacco Use Types Packs/Day Years Used Date Never Smoker Smokeless Tobacco: Never Used Alcohol Use Standard Drinks/Week Comments Not Currently 0 (1 standard drink = 0.6 oz pure alcoho l) Sex Assigned at Date Recorded Not on file documented as of this encounter Last Filed Vital Signs Vital Sign Reading Time Taken Comments Blood Pressure 151/63 09/11/2019 9:46 AM EDT Pulse 96 09/11/2019 9:46 AM EDT Temperature 36.7 ??C (98.1 ??F) 09/11/2019 9:46 AM EDT Respiratory Rate 18 09/11/2019 9:46 AM EDT Oxygen Saturation 100% 09/11/2019 9:46 AM EDT Inhaled Oxygen Concentration - - Weight 84.4 kg (186 lb) 09/11/2019 9:46 AM EDT Height 154.9 cm (5' 0.98) 09/11/2019 9:46 AM EDT uday dykes Body Mass Index 35.16 09/11/2019 9:46 AM EDT documented in this encounter Progress Notes Soni Amaro, STRATEGY DIRECTOR - 09/11/2019 10:00 AM EDT Subjective: Patient ID: Nery Rueda is a 69 y.o. female. 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 Dot Hull performed biopsy Pathology IDC, ER+ 90% WY 25-50%, HER2 IHC 0 04/04/19 right breast mastectomy with sentinel lymph node biopsy Dr. Hull 05/16/19 satrted dd AC. Interval History: Ms. Rueda is in clinic for follow-up appointment on breast cancer. She received 4 cycles of AC. Sheis now being treated with weekly Taxol x 12 weeks. Overall, she is tolerating treatment well, exceptfor some taste changes. She also reports mild numbness and tingling in her fingertips and her feet. She can still button and hold a coffee cup. She denies fever, chills, night sweats, chills or unusual bleeding. PMH, PSH, FH, and SH: Except as mentioned in the interim history, unchanged since last office visit. Review of Systems Constitutional: Positive for appetite change. HENT: Negative. Eyes: Negative. Respiratory: Negative. Cardiovascular: Negative. Gastrointestinal: Negative. Endocrine: Negative. Genitourinary: Negative. Musculoskeletal: Negative. Skin: Negative. Allergic/Immunologic: Negative. Neurological: Positive for numbness. Psychiatric/Behavioral: Negative. Objective: Physical Exam Constitutional: She is oriented to person, place, and time. She appears well- developed and well-nourished. HENT: Head: Normocephalic and atraumatic. Nose: Nose normal. Eyes: Conjunctivae and EOM are normal. Neck: [...] behavior is normal. Vitals reviewed. Vitals: BP 151/63 (Patient Position: Sitting) Pulse 96 Temp 36.7 ??C (98.1 ??F) (Oral) Resp 18 Ht 154.9 cm (5' 0.98) Comment: copied Wt 84.4 kg (186 lb) SpO2 100% BMI 35.16 kg/m?? 09/11/19 LABs: CBC: WBC 2.8, Hgb./Hct. 9.6/29.7, Plts. 286, ANC 1.94. Chem: Na+/K+ 144/4.0, BUN/Creat. 13/0.8, AST 34, ALT 73, Alk. Phos. 59. Assessment and Plan: 1. Breast cancer. Currently being treated with weekly Paclitaxel. 2. Reviewed lab results with patient. Proceed with weekly Paclitaxel infusion today. 3. RTC in 1 week for OV with MD and labs prior to infusion. Soni Amaro, MSN, STRATEGY DIRECTOR, AOCNP documented in this encounter Plan of Treatment Not on filedocumented as of this encounter Procedures Procedure Name Priority Date/Time Associated Diagnosis Comme nts LAB SCAN 09/11/2019 12:00 AM Results for this EDT procedure are i n the results section . documented in this encounter Results SCAN DOC: LAB (09/11/2019 12:00 AM EDT) Narrative 09/11/2019 12:00 AM EDT This result has an attachment that is no t available. Ordered by an unspecified provider. Scanning Provider MEDIA MGR SCAN EXT ORDR/RSLT documented in this encounter Visit Diagnoses Diagnosis Breast cancer metastasized to axillary l ymph node, unspecified laterality documented in this encounter Care Teams Stoneworking Belt Sander Relationship Specialty Start Date End Date Mary Chinchilla APRN PCP - General Geriatric Medicine 04/24/[address] [place] [address] documented as of this encounter
--- OUTSIDE RECORDS SUMMARY | 2022-06-18 00:29 | XMS_ITS | Encounter Summary ---
:1950 Author Organization [facility] [place] [address] Care Team Providers Name Role Phone Mary Chinchilla APRN Primary Care Provider Encounter Details Date Type Department Care Team Description 09/04/2019 Office Visit Hematology/Oncology Soni Amaro east cancer at [facility] NIC Cooper metastasized to [facility] [address] [place] [address] axillary lymph node, [place], [place] unspeci fied laterality [phone] Social History Tobacco Use Types Packs/Day Years Used Date Never Smoker Smokeless Tobacco: Never Used Alcohol Use Standard Drinks/Week Comments Not Currently 0 (1 standard drink = 0.6 oz pure alcoho l) Sex Assigned at Date Recorded Not on file documented as of this encounter Last Filed Vital Signs Vital Sign Reading Time Taken Comments Blood Pressure 145/75 09/04/2019 9:47 AM EDT Pulse 85 09/04/2019 9:47 AM EDT Temperature 36.8 ??C (98.2 ??F) 09/04/2019 9:47 AM EDT Respiratory Rate 18 09/04/2019 9:47 AM EDT Oxygen Saturation 100% 09/04/2019 9:47 AM EDT Inhaled Oxygen Concentration - - Weight 87 kg (191 lb 12.8 oz) 09/04/2019 9:47 AM EDT Height 154.9 cm (5' 0.98) 09/04/2019 9:47 AM EDT Body Mass Index 36.26 09/04/2019 9:47 AM EDT documented in this encounter Progress Notes Soni Amaro, MATERIAL PROCESSOR - 09/04/2019 10:30 AM EDT Subjective: Patient ID: Nery Rueda is a 69 y.o. female. Diagnosis: R IDC 2 foci 24 mm and 10 mm, ER+/NV+ HER2 neg, Gr2, mrg neg, T2N1aM HPI: Oncology history 02/15/19 screening mammogram highly suspicious for malignancy 02/21/19 right mammo and US hypoechoic 2.2 cm spiculated mass 9:00 5 cm from the nipple +3 hypoechoicspiculated masses in the right breast 02/28/19 Dr. Dot Hull performed biopsy Pathology IDC, ER+ 90% NV 25-50%, HER2 IHC 0 04/04/19 right breast [...] visit. Review of Systems Constitutional: Positive for fatigue. HENT: Negative. Eyes: Negative. Respiratory: Negative. Cardiovascular: [...] behavior is normal. Vitals reviewed. Vitals: BP 145/75 (Patient Position: Sitting) Pulse 85 Temp 36.8 ??C (98.2 ??F) (Oral) Resp 18 Ht 154.9 cm (5' 0.98) Wt 87 kg (191 lb 12.8 oz) SpO2 100% BMI 36.26 kg/m?? 09/04/19 LABs: CBC: WBC 2,78, Hgb/Hct. 9.1/28.8, Plts. 259, ANC 1.65. Chem: Na+/K+ 143/3.7, BUN/Creat. 11/0.8, AST 35, ALT 66, Alk. Phos. 61, Alb. 3.3 Assessment and Plan: 1. Breast cancer. Currently being treated with weekly Paclitaxel. 2. Reviewed lab results with patient. Proceed with weekly Paclitaxel infusion today. 3. RTC in 1 week for labs and toxicity assessment prior to infusion. Soni Amaro, MSN, MATERIAL PROCESSOR, AOCNP documented in this encounter Plan of Treatment Not on filedocumented as of this encounter Procedures Procedure Name Priority Date/Time Associated Diagnosis Comme nts LAB SCAN 09/04/2019 12:00 AM Results for this EDT procedure are i n the results section . documented in this encounter Results SCAN DOC: LAB (09/04/2019 12:00 AM EDT) Narrative 09/04/2019 12:00 AM EDT This result has an attachment that is no t available. Ordered by an unspecified provider. Scanning Provider MEDIA MGR SCAN EXT ORDR/RSLT documented in this encounter Visit Diagnoses Diagnosis Breast cancer metastasized to axillary l ymph node, unspecified laterality documented in this encounter Care Teams Computer Programming Professor Relationship Specialty Start Date End Date Mary Chinchilla APRN PCP - General Geriatric Medicine 04/24/[address] [place] [address] [place] [address] documented as of this encounter
--- OUTSIDE RECORDS SUMMARY | 2022-06-18 00:29 | XMS_ITS | Encounter Summary ---
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, unspecified laterality [address] [place] [address] [phone] Social History Tobacco Use Types Packs/Day Years Used Date Never Smoker Smokeless Tobacco: Never Used Alcohol Use Standard Drinks/Week Comments Not Currently 0 (1 standard drink = 0.6 oz pure alcoho l) Sex Assigned at Date Recorded Not on file documented as of this encounter Progress Notes Geronimo Sprague RN - 07/31/2019 10:30 AM EDT INFUSION THERAPY ADMINISTRATION NOTES DIAGNOSIS: Breast cancer CYCLE #: Cycle 1, Day 15 - First of 12 planned Paclitaxels REASON FOR VISIT: To receive chemotherapy SUBJECTIVE: Nery offers no complaints. Only wanted to take 25mg oral benadryl- Dr. Gomran said this was OK. OBJECTIVE: Seen by provider. Ready to treat. LAB DATA: [facility]DL for today's infusion, reviewed by Chris Amaro APRN IV ACCESS: Port accessed off site. Only brief blood return, very positional,. Brisk blood return prior to de access. Pre administration: Chemotherapy orders independently verified for drug name, route, and dosage per patient's height, weight and BSA by GERONIMO SPRAGUE, RN and Luis Grullon [facility]. REACTIONS (DESCRIPTION, TIME, INTERVENTION AND EFFECTIVENESS) none [...] Dose Rate Site dexamethasone (DECADRON) injection Given 07/31/2019 10:46 AM EDT 10 mg 10 mg 10 mg, Intravenous, ONCE, 1 dose, On Tue07/31/19 at 1045, Administer 30 minutes prior to PACLitaxel diphenhydrAMINE (BENADRYL) capsule 50 mg Given 07/31/2019 10:45 AM EDT 25 mg 50 mg, Oral, ONCE, 1 dose, On Tue07/31/19 at 1045, Administer 30 minutes prior to PACLitaxel, Routine famotidine (PEPCID) injection 20 mg Given 07/31/2019 10:46 AM EDT 20 mg 20 mg, Intravenous, ONCE, 1 dose, On Tue07/31/19 at 1045, Administer 30 minutes prior to PACLitaxel heparin, porcine 100 unit/mL flush 500 Given 07/31/2019 12:39 PM EDT 500 Units Units 500 Units, Intravenous, ONCE PRN, Starting on Tue07/31/19 at 1019, Until Tue07/31/19 at 1537, Line Care, Refer to Intravenous (IV) Procedure: Accessing Implanted Vascular Access Devices (654) procedure and/or Intravenous (IV) Job Aid: Adult Flushing & Catheter Care (9827) job aid for additional information regarding guidelines and administration., Routine ondansetron (ZOFRAN) tablet 8 mg Given 07/31/2019 10:45 AM EDT 8 mg 8 mg, Oral, ONCE, 1 dose, On Tue07/31/19 at 1045, Administer prior to chemotherapy, Routine PACLitaxel (TAXOL) 155 mg in New Bag 07/31/2019 11:32 AM EDT 155 m g 275.8 mL/hr sodium chloride 0.9% Non-PVC 275.8333 mL chemo infusion 155 mg (rounded from 155.2 mg = 80 mg/m2/dose ? 1.94 m2 Treatment Plan BSA from Recorded weight), Intravenous, ONCE, 1 dose, On Tue07/31/19 at 1145, Administer over 60 Minutes, Warning Vesicant/Irritant Medication sodium chloride 0.9 % (flush) flush 5-20 mL Given 07/31/2019 12:39 PM EDT 20 mLs 5-20 mL, Intravenous, EVERY 1 MIN PRN, Starting on Tue07/31/19 at 1019, Until Tue07/31/19 at 1537, Line Care, Flush pertains to all indwelling lines. Flush per protocol found in the job aid using the link provided on this medication record. Refer to Intravenous (IV) Job Aid: Adult Flushing & Catheter Care (2171) job aid for additional information regarding guidelines and administration., Routine documented in this encounter Care Teams Milk Wagon Driver Relationship Specialty Start Date End Date Mary Chinchilla APRN PCP - General Geriatric Medicine 04/24/[address] [place] [place] [address] documented as of this encounter
--- OUTSIDE RECORDS SUMMARY | 2022-06-18 00:29 | XMS_ITS | Encounter Summary ---
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 Taxol (Paclitaxel) - Weekly Minor Gorman Stj Hem Onc Infus ion Oncology Procedures TC PACLITAXEL, 1MG, INJ INFUSION ROOM [address] [place] [phone] HEMATOLOGY/[place] [address] Referral ID Status Reason Start Date Expiration Date Visits V isits Requested Authorized [id number] 07/17/2019 07/16/2020 99 99 Encounter Details Date Type Department Care Team Description 09/11/2019 Infusion Hematology Oncology at [facility] 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, unspecified laterality; [facility] 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 OBJECTIVE: Seen by Chris Amaro APRN. Ready to treat. LAB DATA: Done today at [facility]. Reviewed with Elin Amaro APRN in clinic and WNL for treatment. IV ACCESS: Port already accessed by OSH for lab draw; dressing CDI. [facility] able to get blood return for lab draw but none when she got here. Her port is very positional. Port flushed with 20cc NS and 500units Heparin then de-accessed after completion of treatment and blood return noted. Pre administration: Chemotherapy orders independently verified for drug name, route, and dosage per patient's height, weight and BSA by Michelle Valverde, RN and Luis Grullon [facility]. [...] Dose Rate Site dexamethasone (DECADRON) injection Given 09/11/2019 11:27 AM EDT 10 mg 10 mg 10 mg, Intravenous, ONCE, 1 dose, On Tue09/11/19 at 1100, Administer 30 minutes prior to PACLitaxel diphenhydrAMINE (BENADRYL) capsule 50 mg Given 09/11/2019 11:21 AM EDT 25 mg 50 mg, Oral, ONCE, 1 dose, On Tue09/11/19 at 1100, Administer 30 minutes prior to PACLitaxel, Routine famotidine (PEPCID) injection 20 mg Given 09/11/2019 11:27 AM EDT 20 mg 20 mg, Intravenous, ONCE, 1 dose, On Tue09/11/19 at 1100, Administer 30 minutes prior to PACLitaxel heparin, porcine 100 unit/mL flush 500 Given 09/11/2019 1:15 PM EDT 500 Units Units 500 Units, Intravenous, ONCE PRN, Starting on Tue09/11/19 at 1034, Until Tue09/11/19 at 1533, Line Care, Refer to Intravenous (IV) Procedure: Accessing Implanted Vascular Access Devices (654) procedure and/or Intravenous (IV) Job Aid: Adult Flushing & Catheter Care (4441) job aid for additional information regarding guidelines and administration., Routine ondansetron (ZOFRAN) tablet 8 mg Given 09/11/2019 11:21 AM EDT 8 mg 8 mg, Oral, ONCE, 1 dose, On Tue09/11/19 at 1100, Administer prior to chemotherapy, Routine PACLitaxel (TAXOL) 155 mg in New Bag 09/11/2019 12:09 PM EDT 155 m g 276 mL/hr sodium chloride 0.9% Non-PVC 275.8333 mL chemo infusion 155 mg (rounded from 155.2 mg = 80 mg/m2/dose ? 1.94 m2 Treatment Plan BSA from Recorded weight), Intravenous, ONCE, 1 dose, On Tue09/11/19 at 1200, Administer over 60 Minutes, Warning Vesicant/Irritant Medication sodium chloride 0.9 % (flush) flush 5-20 mL Given 09/11/2019 1:15 PM EDT 20 mLs 5-20 mL, Intravenous, EVERY 1 MIN PRN, Starting on Tue09/11/19 at 1034, Until Tue09/11/19 at 1533, Line Care, Flush pertains to all indwelling lines. Flush per protocol found in the job aid using the link provided on this medication record. Refer to Intravenous (IV) Job Aid: Adult Flushing & Catheter Care (5294) job aid for additional information regarding guidelines and administration., Routine documented in this encounter Care Teams Corporate Webmaster Relationship Specialty Start Date End Date Mary Chinchilla APRN PCP - General Geriatric Medicine 04/24/[address] [place] [address] documented as of this encounter
--- OUTSIDE RECORDS SUMMARY | 2022-06-18 00:29 | XMS_ITS | Encounter Summary ---
:1950 Author Organization [facility] [place] [address] Care Team Providers Name Role Phone Mary Chinchilla APRN Primary Care Provider Reason for Visit Reason Comments Chemotherapy Cycle 2, Day 8 Taxol High Dollar Medication (Routine) [...] Procedures TC PACLITAXEL, 1MG, INJ INFUSION ROOM [address] [place] [phone] HEMATOLOGY/[place] [address] Referral ID Status Reason Start Date Expiration Date Visits V isits Requested Authorized [id number] 07/17/2019 07/16/2020 99 99 Encounter Details Date Type Department Care Team Description 08/14/2019 Infusion Hematology Oncology at [facility] 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, unspecified laterality; [facility] 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 Her port has brisk blood return today. OBJECTIVE: Seen by provider. Ready to treat. LAB DATA: Done today at [facility]. Reviewed with Elin Amaro APRN in clinic and WNL for treatment. IV ACCESS: Port already accessed by OSH for lab draw; dressing CDI, flushes easily with excellent blood return noted. Port flushed with 20cc NS and 500 units Heparin then de-accessed after completion of treatment. Pre administration: Chemotherapy orders independently verified for drug name, route, and dosage per patient's height, weight and BSA by Arti Barnes, EDE and Luis Grullon [facility]. REACTIONS (DESCRIPTION, TIME, INTERVENTION AND EFFECTIVENESS) [...] Dose Rate Site dexamethasone (DECADRON) injection Given 08/14/2019 11:18 AM EDT 10 mg 10 mg 10 mg, Intravenous, ONCE, 1 dose, On Tue08/14/19 at 1100, Administer 30 minutes prior to PACLitaxel diphenhydrAMINE (BENADRYL) injection 25 mg Given 08/14/2019 11:16 AM EDT 25 mg 25 mg, Intravenous, ONCE, 1 dose, On Tue08/14/19 at 1100, Administer 30 minutes prior to PACLitaxel, Routine famotidine (PEPCID) injection 20 mg Given 08/14/2019 11:15 AM EDT 20 mg 20 mg, Intravenous, ONCE, 1 dose, On Tue08/14/19 at 1100, Administer 30 minutes prior to PACLitaxel heparin, porcine 100 unit/mL flush 500 Given 08/14/2019 1:45 PM EDT 500 Units Units 500 Units, Intravenous, ONCE PRN, Starting on Tue08/14/19 at 1039, Until Tue08/14/19 at 1718, Line Care, Refer to Intravenous (IV) Procedure: Accessing Implanted Vascular Access Devices (654) procedure and/or Intravenous (IV) Job Aid: Adult Flushing & Catheter Care (1475) job aid for additional information regarding guidelines and administration., Routine ondansetron (ZOFRAN) tablet 8 mg Given 08/14/2019 11:13 AM EDT 8 mg 8 mg, Oral, ONCE, 1 dose, On Tue08/14/19 at 1100, Administer prior to chemotherapy, Routine PACLitaxel (TAXOL) 155 mg in New Bag 08/14/2019 12:34 PM EDT 155 m g 276 mL/hr sodium chloride 0.9% Non-PVC 275.8333 mL chemo infusion 155 mg (rounded from 155.2 mg = 80 mg/m2/dose ? 1.94 m2 Treatment Plan BSA from Recorded weight), Intravenous, ONCE, 1 dose, On Tue08/14/19 at 1200, Administer over 60 Minutes, Warning Vesicant/Irritant Medication sodium chloride 0.9 % (flush) flush 5-20 mL Given 08/14/2019 1:44 PM EDT 20 mLs 5-20 mL, Intravenous, EVERY 1 MIN PRN, Starting on Tue08/14/19 at 1039, Until Tue08/14/19 at 1718, Line Care, Flush pertains to all indwelling lines. Flush per protocol found in the job aid using the link provided on this medication record. Refer to Intravenous (IV) Job Aid: Adult Flushing & Catheter Care (5973) job aid for additional information regarding guidelines and administration., Routine documented in this encounter Care Teams Senior Education Specialist Relationship Specialty Start Date End Date Mary Chinchilla APRN PCP - General Geriatric Medicine 04/24/[address] [place] [address] documented as of this encounter
--- OUTSIDE RECORDS SUMMARY | 2022-06-18 00:29 | XMS_ITS | Encounter Summary ---
:1950 Author Organization [facility] [place] [address] Care Team Providers Name Role Phone Mary Chinchilla APRN Primary Care Provider Reason for Referral Consultation (Routine) - Closed Specialty Diagnoses / Procedures Referred By Contact Refer red To Contact Radiation Oncology Diagnoses Malignant neoplasm of upper-outer quadrant of right female breast, unspecified estrogen receptor status Chantelle Rae MD [facility] Procedures Simulation for Radiation Therapy Planning PRG RADIATION THERAPY PLAN COMPLEX PRG SET RADIATION THERAPY FIELD COMPLEX PRG RADIATION TREATMENT AID(S) INTERM PRG SET RADIATION THERAPY FIELD 3D RECON [facility] [address] [facility] [address] PRG RESPIRATORY MOTION MANAG EMENT PLANNING PRG BASIC RADIATION DOSIMETRY CALCULATION PRG RADIATION TREATMENT AID(S) COMPLX PRG SET RADIATION THERAPY FIELD SIMPLE PRG RADIATION TREATMENT AID(S) COMPLX PRG SET RADIATION THERAPY FIELD SIMPLE RADIATION ONCOLOGY [place], [place] CHG RADN RX DELIVERY COMPLX =<5 MEV RADIOLOGY PORT FILM(S) CHG RADN PHYSICS CONSULT CONTINUING PRG RADIATION MANAGEMENT, [address] [address] [place] [phone] Fax: Referral ID Status Reason Start Date Expiration Date Visits V isits Requested Authorized [id number] Closed Consult, 09/18/2019 09/17/2020 1 1 Test & Treat Encounter Details Date Type Department Care Team Description 09/18/2019 Orders Only Radiation Oncology at Jo Rae MD Malignant neoplasm of [facility] upper-outer quadrant [facility] DR of right female Drive RADIATION ONCOLOGY breast, [place] [phone] [place] [address] estrogen receptor [phone] status (Work) Social History Tobacco Use Types Packs/Day Years Used Date Never Smoker Smokeless Tobacco: Never Used Alcohol Use Standard Drinks/Week Comments Not Currently 0 (1 standard drink = 0.6 oz pure alcoho l) Sex Assigned at Date Recorded Not on file documented as of this encounter Plan of Treatment Scheduled Orders Name Type Priority Associated Diagnoses Order S chedule Simulation for Procedures Routine Malignant neoplasm of Orde red: 09/18/2019 Radiation Therapy upper-outer quadrant of Planning right female breast, unspecified estrogen receptor status documented as of this encounter Visit Diagnoses Diagnosis Malignant neoplasm of upper-outer quadra nt of right female breast, unspecified estrogen receptor status documented in this encounter Care Teams Talent Associate Relationship Specialty Start Date End Date Mary Chinchilla APRN PCP - General Geriatric Medicine 04/24/[address] [place] [address] documented as of this encounter
--- OUTSIDE RECORDS SUMMARY | 2022-06-18 00:29 | XMS_ITS | Encounter Summary ---
:1950 Author Organization [place] [address] Care Team Providers Name Role Phone Mary Chinchilla APRN Primary Care Provider Encounter Details Date Type Department Care Team Description 08/07/2019 Office Visit Hematology/Oncology Soni Amaro east cancer at [facility] NIC [facility] metastasized to [facility] [address] [place] [address] axillary lymph node, [place], [place] unspeci fied laterality [phone] Social History Tobacco Use Types Packs/Day Years Used Date Never Smoker Smokeless Tobacco: Never Used Alcohol Use Standard Drinks/Week Comments Not Currently 0 (1 standard drink = 0.6 oz pure alcoho l) Sex Assigned at Date Recorded Not on file documented as of this encounter Last Filed Vital Signs Vital Sign Reading Time Taken Comments Blood Pressure 137/65 08/07/2019 10:06 AM EDT Pulse 84 08/07/2019 10:06 AM EDT Temperature 36.4 ??C (97.5 ??F) 08/07/2019 10:06 AM EDT Respiratory Rate 16 08/07/2019 10:06 AM EDT Oxygen Saturation 99% 08/07/2019 10:06 AM EDT Inhaled Oxygen Concentration - - Weight 86.6 kg (191 lb) 08/07/2019 10:06 AM EDT Height 154.9 cm (5' 0.98) 08/07/2019 10:06 AM EDT Body Mass Index 36.11 08/07/2019 10:06 AM EDT documented in this encounter Progress Notes Soni Amaro APRN - 08/07/2019 10:00 AM EDT Subjective: Patient ID: Nery Rueda is a 69 y.o. female. 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 She reports occasional dry eye for which she uses drops. She denies pain, neuropathy fever, chills, night sweats, chills or unusual [...] range of motion. Neck supple. Cardiovascular: Normal rate. Pulmonary/Chest: Effort normal and breath sounds normal. Abdominal: Soft. Bowel sounds are normal. Musculoskeletal: Normal range of motion. Neurological: She is alert and oriented to person, place, and time. Skin: Skin is warm and dry. Psychiatric: She has a normal mood and affect. Her behavior is normal. Vitals reviewed. Vitals: BP 137/65 (Patient Position: Sitting) Pulse 84 Temp 36.4 ??C (97.5 ??F) (Oral) Resp 16 Ht 154.9 cm (5' 0.98) Wt 86.6 kg (191 lb) SpO2 99% BMI 36.11 kg/m?? 08/07/19 LABs: WBC 3.15 Hgb./Hct. 10.0/30.0, Plts. 276, ANC 1.98 Chem: Na+/K+ 141/3.8, BUN/Creat. 19/0.8, AST 31, ALT 72, Alk. Phos. 60, Alb. 3.3L Assessment and Plan: 1. Breast cancer. Currently being treated with weekly Paclitaxel x 12 weeks. 2. Reviewed lab results with patient. Proceed with week 4 of Paclitaxel infusion today. 3. Instructed to rinse 4x/day with a mixture of salt and baking soda. 4. RTC in 1 week for labs and repeat evaluation prior to infusion. Soni Amaro, MSN, GAS ROLLER OPERATOR, AOCNP documented in this encounter Plan of Treatment Not on filedocumented as of this encounter Procedures Procedure Name Priority Date/Time Associated Diagnosis Comme nts LAB SCAN 08/07/2019 12:00 AM Results for this EDT procedure are i n the results section . documented in this encounter Results SCAN DOC: LAB (08/07/2019 12:00 AM EDT) Narrative 08/07/2019 12:00 AM EDT This result has an attachment that is no t available. Ordered by an unspecified provider. Scanning Provider MEDIA MGR SCAN EXT ORDR/RSLT documented in this encounter Visit Diagnoses Diagnosis Breast cancer metastasized to axillary l ymph node, unspecified laterality documented in this encounter Care Teams Oil Well Engineer Relationship Specialty Start Date End Date Mary Chinchilla APRN PCP - General Geriatric Medicine 04/24/[address] [place] [address] documented as of this encounter
--- OUTSIDE RECORDS SUMMARY | 2022-06-18 00:29 | XMS_ITS | Encounter Summary ---
:1950 Author Organization [place] [address] Care Team Providers Name Role Phone Mary Chinchilla APRN Primary Care Provider Reason for Visit Reason Comments Chemotherapy Cycle 4 Day 15 Paclitaxel High Dollar Medication (Routine) - Specialty Diagnoses / Procedures Referred By Contact Refer red To Contact Hematology and Diagnoses Malignant neoplasm of unspecified site of unspecified female breast Secondary and unspecified malignant neoplasm of axilla and upper limb lymph nodes SD @ 930 Taxol (Paclitaxel) - Weekly [facility] Hem Onc Infus ion Oncology Procedures TC PACLITAXEL, 1MG, INJ INFUSION ROOM [address] [place] [phone] HEMATOLOGY/[place] [address] Referral ID Status Reason Start Date Expiration Date Visits V isits Requested Authorized [id number] 07/17/2019 07/16/2020 99 99 Encounter Details Date Type Department Care Team Description 10/02/2019 Infusion Hematology Oncology at [facility] 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, unspecified laterality; [facility] 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 OBJECTIVE: VSS, weight stable LAB DATA: WBC 2.63, HGB/HCT 9.9/31.1, PLT 257, ANC 1.49, BUN/Cr 15/0.85 IV ACCESS: Port already accessed by OSH for lab draw; dressing CDI. Blood return present and flusheseasily. Pre administration: Chemotherapy orders independently verified for drug name, route, and dosage per patient's height, weight and BSA by Michelle Valverde, EDE and Luis Grullon [facility]. REACTIONS (DESCRIPTION, TIME, INTERVENTION AND [...] Dose Rate Site dexamethasone (DECADRON) injection Given 10/02/2019 10:24 AM EST 10 mg 10 mg 10 mg, Intravenous, ONCE, 1 dose, On Tue10/02/19 at 1015, Administer 30 minutes prior to PACLitaxel diphenhydrAMINE (BENADRYL) capsule 50 mg Given 10/02/2019 10:16 AM EST 25 mg 50 mg, Oral, ONCE, 1 dose, On Tue10/02/19 at 1015, Administer 30 minutes prior to PACLitaxel, Routine famotidine (PEPCID) injection 20 mg Given 10/02/2019 10:22 AM EST 20 mg 20 mg, Intravenous, ONCE, 1 dose, On Tue10/02/19 at 1015, Administer 30 minutes prior to PACLitaxel heparin, porcine 100 unit/mL flush 500 Given 10/02/2019 12:11 PM EST 500 Units Units 500 Units, Intravenous, ONCE PRN, Starting on Tue10/02/19 at 0948, Until Tue10/02/19 at 1416, Line Care, Refer to Intravenous (IV) Procedure: Accessing Implanted Vascular Access Devices (654) procedure and/or Intravenous (IV) Job Aid: Adult Flushing & Catheter Care (8950) job aid for additional information regarding guidelines and administration., Routine ondansetron (ZOFRAN) tablet 8 mg Given 10/02/2019 10:16 AM EST 8 mg 8 mg, Oral, ONCE, 1 dose, On Tue10/02/19 at 1015, Administer prior to chemotherapy, Routine PACLitaxel (TAXOL) 155 mg in New Bag 10/02/2019 11:07 AM EST 155 m g 276 mL/hr sodium chloride 0.9% Non-PVC 275.8333 mL chemo infusion 155 mg (rounded from 155.2 mg = 80 mg/m2/dose ? 1.94 m2 Treatment Plan BSA from Recorded weight), Intravenous, ONCE, 1 dose, On Tue10/02/19 at 1115, Administer over 60 Minutes, Warning Vesicant/Irritant Medication sodium chloride 0.9 % (flush) flush 5-20 mL Given 10/02/2019 12:11 PM EST 20 mLs 5-20 mL, Intravenous, EVERY 1 MIN PRN, Starting on Tue10/02/19 at 0948, Until Tue10/02/19 at 1416, Line Care, Flush pertains to all indwelling lines. Flush per protocol found in the job aid using the link provided on this medication record. Refer to Intravenous (IV) Job Aid: Adult Flushing & Catheter Care (8638) job aid for additional information regarding guidelines and administration., Routine documented in this encounter Care Teams Audio/Video Engineer Relationship Specialty Start Date End Date Mary Chinchilla APRN PCP - General Geriatric Medicine 04/24/[address] [place] [address] documented as of this encounter
--- OUTSIDE RECORDS SUMMARY | 2022-06-18 00:29 | XMS_ITS | Encounter Summary ---
:1950 Author Organization [facility] [place] [address] Care Team Providers Name Role Phone Mary Chinchilla APRN Primary Care Provider Reason for Visit Reason Comments Chemotherapy Cycle 2 Day 15 Taxol High Dollar Medication (Routine) [...] Procedures TC PACLITAXEL, 1MG, INJ INFUSION ROOM [address] [place] [phone] HEMATOLOGY/[place] [address] Referral ID Status Reason Start Date Expiration Date Visits V isits Requested Authorized [id number] 07/17/2019 07/16/2020 99 99 Encounter Details Date Type Department Care Team Description 08/21/2019 Infusion Hematology Oncology at [facility] 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, unspecified laterality; [facility] 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 Her port did not have blood return upon arrival. After 30mins of cathflo there was brisk blood return. OBJECTIVE: Seen by Chris Amaro APRN. Ready to treat. LAB DATA: Done today at [facility]. Reviewed with Elin Amaro APRN in clinic and WNL for treatment. IV ACCESS: Port already accessed by OSH for lab draw; dressing CDI, flushes easily with excellent blood return noted (see above). Port flushed with 20cc NS and 500 units Heparin then de-accessed after completion of treatment. Pre administration: Chemotherapy orders independently verified for drug name, route, and dosage per patient's height, weight and BSA by Michelle Valverde RN and Luis Grullon [facility]. REACTIONS (DESCRIPTION, TIME, INTERVENTION AND EFFECTIVENESS) [...] Site alteplase (CATHFLO) injection 2 mg Given 08/21/2019 10:46 AM EDT 2 mg 2 mg, Intravenous, ONCE PRN, Starting on Tue08/21/19 at 1040, Until Tue08/21/19 at 1626, Line Occlusion, Refer to Cathflo Activase (Alteplase) Administration policy for additional information regarding guidelines and administration., Routine dexamethasone (DECADRON) injection 10 mg Given 08/21/2019 12:05 PM EDT 10 mg 10 mg, Intravenous, ONCE, 1 dose, On Tue08/21/19 at 1145, Administer 30 minutes prior to PACLitaxel diphenhydrAMINE (BENADRYL) capsule 50 mg Given 08/21/2019 11:58 AM EDT 25 mg 50 mg, Oral, ONCE, 1 dose, On Tue08/21/19 at 1145, Administer 30 minutes prior to PACLitaxel, Routine famotidine (PEPCID) injection 20 mg Given 08/21/2019 12:00 PM EDT 20 mg 20 mg, Intravenous, ONCE, 1 dose, On Tue08/21/19 at 1145, Administer 30 minutes prior to PACLitaxel heparin, porcine 100 unit/mL flush 500 Given 08/21/2019 2:03 PM EDT 500 Units Units 500 Units, Intravenous, ONCE PRN, Starting on Tue08/21/19 at 1122, Until Tue08/21/19 at 1626, Line Care, Refer to Intravenous (IV) Procedure: Accessing Implanted Vascular Access Devices (654) procedure and/or Intravenous (IV) Job Aid: Adult Flushing & Catheter Care (8546) job aid for additional information regarding guidelines and administration., Routine ondansetron (ZOFRAN) tablet 8 mg Given 08/21/2019 11:58 AM EDT 8 mg 8 mg, Oral, ONCE, 1 dose, On Tue08/21/19 at 1145, Administer prior to chemotherapy, Routine PACLitaxel (TAXOL) 155 mg in New Bag 08/21/2019 12:55 PM EDT 155 m g 275.8 mL/hr sodium chloride 0.9% Non-PVC 275.8333 mL chemo infusion 155 mg (rounded from 155.2 mg = 80 mg/m2/dose ? 1.94 m2 Treatment Plan BSA from Recorded weight), Intravenous, ONCE, 1 dose, On Tue08/21/19 at 1245, Administer over 60 Minutes, Warning Vesicant/Irritant Medication sodium chloride 0.9 % (flush) flush 5-20 mL Given 08/21/2019 2:03 PM EDT 20 mLs 5-20 mL, Intravenous, EVERY 1 MIN PRN, Starting on Tue08/21/19 at 1122, Until Tue08/21/19 at 1626, Line Care, Flush pertains to all indwelling lines. Flush per protocol found in the job aid using the link provided on this medication record. Refer to Intravenous (IV) Job Aid: Adult Flushing & Catheter Care (8340) job aid for additional information regarding guidelines and administration., Routine documented in this encounter Care Teams Podiatric Medicine Professor Relationship Specialty Start Date End Date Mary Chinchilla APRN PCP - General Geriatric Medicine 04/24/[address] [place] [address] documented as of this encounter
--- OUTSIDE RECORDS SUMMARY | 2022-06-18 00:29 | XMS_ITS | Encounter Summary ---
:1950 Author Organization [facility] [place] [address] Care Team Providers Name Role Phone Mary Chinchilla APRN Primary Care Provider Encounter Details Date Type Department Care Team Description 08/21/2019 Notes Only Hematology/Oncology at Martine Negron MSW [facility] OFFICE OF CARE [address] [place] [address] [phone] Social History Tobacco Use Types Packs/Day Years Used Date Never Smoker Smokeless Tobacco: Never Used Alcohol Use Standard Drinks/Week Comments Not Currently 0 (1 standard drink = 0.6 oz pure alcoho l) Sex Assigned at Date Recorded Not on file documented as of this encounter Progress Notes Martine Negron MSW - 08/21/2019 2:05 PM EDT Follow up with pt and her daughter during infusion today. Talked about her family - children and grandchildren. Her family are very supportive and involved. 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 She reports she is doing fairly well with her chemo therapy and sees a pattern on which days she may not feel as well on. Offered support and encouragement. 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 documented in this encounter Plan of Treatment Not on filedocumented as of this encounter Visit Diagnoses Not on filedocumented in this encounter Care Teams Appliance Tester Relationship Specialty Start Date End Date Mary Chinchilla APRN PCP - General Geriatric Medicine 04/24/[address] [place] [address] documented as of this encounter
--- OUTSIDE RECORDS SUMMARY | 2022-06-18 00:29 | XMS_ITS | Encounter Summary ---
:1950 Author Organization [facility] [address] Care Team Providers Name Role Phone AmorMary NIC Primary Care Provider Reason for Visit Consultation (Routine) - Closed Specialty Diagnoses / Procedures Referred By Contact Refer red To Contact Radiation Oncology Diagnoses Malignant neoplasm of upper-outer quadrant of right female breast, unspecified estrogen receptor status Chantelle Rae MD [facility] Rad Onc Office Procedures Simulation for Radiation Therapy Planning PRG RADIATION THERAPY PLAN COMPLEX PRG SET RADIATION THERAPY FIELD COMPLEX PRG RADIATION TREATMENT AID(S) INTERM PRG SET RADIATION THERAPY FIELD 3D RECON [facility] [address] PRG RESPIRATORY MOTION MANAG EMENT PLANNING PRG BASIC RADIATION DOSIMETRY CALCULATION PRG RADIATION TREATMENT AID(S) COMPLX PRG SET RADIATION THERAPY FIELD SIMPLE PRG RADIATION TREATMENT AID(S) COMPLX PRG SET RADIATION THERAPY FIELD SIMPLE RADIATION ONCOLOGY [place], [place] CHG RADN RX DELIVERY COMPLX =<5 MEV RADIOLOGY PORT FILM(S) CHG RADN PHYSICS CONSULT CONTINUING PRG RADIATION MANAGEMENT, [address] [address] [place] [phone] Fax: Referral ID Status Reason Start Date Expiration Date Visits V isits Requested Authorized [id number] Closed Consult, 09/18/2019 09/17/2020 1 1 Test & Treat Encounter Details Date Type Department Care Team Description 10/02/2019 Ancillary Radiation Oncology Chantelle Rae, Malign ant neoplasm Appointment at [facility] of upper-outer [address] [facility] right [place], [place] CENTER female breast, [phone] RADIATION unspecified [phone] ONCOLOGY estrogen receptor [place], [place] status [id number] Social History Tobacco Use Types Packs/Day Years Used Date Never Smoker Smokeless Tobacco: Never Used Alcohol Use Standard Drinks/Week Comments Not Currently 0 (1 standard drink = 0.6 oz pure alcoho l) Sex Assigned at Date Recorded Not on file documented as of this encounter Patient Instructions Patient InstructionsKenyetta Rosales RN - 10/02/2019 8:30 AM EST Information for Patients receiving radiation therapy to the Breast Approximately two weeks after your first treatment, you may begin to experience side effects caused by the radiation. These effects may continue throughout the treatment period and not start improving until 1-2 weeks after treatment is completed. Your doctor will tell you which side effects you are most likely to experience, when you will notice them and how long they might last. It is important to follow the appropriate instructions to minimize your discomfort. Skin Care ??? Wash skin in the treatment field with lukewarm water and mild or moisturizing, unscented soap daily. Blot skin dry with a soft towel. ??? Do not apply any ointment, salve, deodorant, perfume, cologne, cosmetic or self-remedy to the treatment area while you are undergoing radiation and for 1-2 weeks following treatment. An all naturaldeodorant with no aluminum can be used if necessary. ??? Moisturizing cream will be provided for you. This may be used in the treatment area once daily beginning on your first treatment day. Do not apply 2 hours before your radiation treatments. As dryness/redness develop you can use this more often. ??? Do not rub or scratch the skin in the treatment field. This includes shaving unless you use an electric razor. If your skin becomes dry or itchy, tell your nurse or doctor. If necessary, your doctor may order a medication specifically for this problem. ??? Do not use hot water bottles, heating lights, electric heating pads, or hot packs to the treatment area. ??? Keep treated areas out of the sun throughout the treatment period. Be careful of sun exposure tothe treatment field for one year following treatment. Please use SPF> 30 to all exposed areas of skin and limit sun exposure. ??? Avoid tight fitting clothes. We would prefer that you wear a cotton t-shirt instead of a bra. Ifyou are unable to go without a bra please wear a soft cotton bra without underwire. ??? Examine your skin in the treatment area daily and watch for changes. If you cannot reach the whole treatment field ask a family member to look at it and apply cream as needed. Be careful to keep the area under your breast clean and dry as this area can get irritated first. ??? You will meet with your nurse and doctor weekly. They will check your skin and help you with anyside effects you are having. Please ask to see the nurse if you have concerns in between these days. ??? During the last weeks of treatment you may notice some peeling of skin and/or a moist reaction. Be sure to let us know if this happens so we can provide you with further skin care instructions.. ??? Continue to stay active, walk daily, eat healthy foods and drink several glasses of water each day. Fatigue You may notice that you feel unusually tired towards the end of treatment. This is not unusual. We recommend that you pace your activities and plan for rest periods to avoid becoming over-tired. Feel free to direct any questions or concerns you may have related to your treatment to your nurse or doctor. [facility] Radiation Oncology Our normal business hours are: Tuesday - Tuesday 8 AM to 5 PM [place], [place], [place] For emergent situations after hours please call for either location and ask for the Radiation Oncologist construction supervisor. documented in this encounter Progress Notes Kenyetta Rosales RN - 10/02/2019 8:30 AM EST Radiation Oncology Simulation Note Nery Rueda is here for radiation planning , undergoing a simulation to the right breast, supraclavicular fossa and right axilla for breast cancer treatment . Usual radiation oncology routines and purpose of on treatment visits were explained. Jeans cream provided and instructions for use reviewed Anticipatory Guidance: Please see AVS. Barriers to Treatment/ Compliance issues identified: None identified. Patient confirms they can have no difficulties lying flat. pre- medication plan made: None needed. Patient denies pain. Referrals: [employer] per routine. Chantelle Rae MD - 10/02/2019 8:30 AM EST Here for sim. Completes chemo today. S: Neck pain resolved. Sim: Custom vac bag w/breast bd immobilization; flat bbs on mastectomy & drain site scar; CT through neck & chest; 3D xrt planned. She tolerated sim well, w/o problem. Tx Plan: 3D xrt. Start xrt 10/22/19. documented in this encounter Plan of Treatment Not on filedocumented as of this encounter Visit Diagnoses Diagnosis Malignant neoplasm of upper-outer quadra nt of right female breast, unspecified estrogen receptor status documented in this encounter Care Teams Outside Sales Executive Relationship Specialty Start Date End Date Mary Chinchilla APRN PCP - General Geriatric Medicine 04/24/[address] [place] [address] documented as of this encounter
--- OUTSIDE RECORDS SUMMARY | 2022-06-18 00:29 | XMS_ITS | Encounter Summary ---
:1950 Author Organization [place] [address] Care Team Providers Name Role Phone Mary Chinchilla APRN Primary Care Provider Reason for Visit Reason Comments Chemotherapy Cycle 4 Day 8 Taxol High Dollar Medication (Routine) [...] Procedures TC PACLITAXEL, 1MG, INJ INFUSION ROOM [address] [place] [phone] HEMATOLOGY/[place] [address] Referral ID Status Reason Start Date Expiration Date Visits V isits Requested Authorized [id number] 07/17/2019 07/16/2020 99 99 Encounter Details Date Type Department Care Team Description 09/25/2019 Infusion Hematology Oncology at [facility] 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, unspecified laterality; [facility] 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 OBJECTIVE: VSS, weight stable LAB DATA: WBC 2.53, HGB/HCT 10.1/31.5, PLT 265, ANC 1.55, BUN/Cr 10/0.90 IV ACCESS: Port already accessed by OSH for lab draw; dressing CDI. Blood return present and flusheseasily. Pre administration: Chemotherapy orders independently verified for drug name, route, and dosage per patient's height, weight and BSA by Michelle Valverde, EDE and Luis Grullon [facility] [...] Dose Rate Site dexamethasone (DECADRON) injection Given 09/25/2019 11:12 AM EST 10 mg 10 mg 10 mg, Intravenous, ONCE, 1 dose, On Tue09/25/19 at 1115, Administer 30 minutes prior to PACLitaxel diphenhydrAMINE (BENADRYL) capsule 50 mg Given 09/25/2019 11:08 AM EST 25 mg 50 mg, Oral, ONCE, 1 dose, On Tue09/25/19 at 1115, Administer 30 minutes prior to PACLitaxel, Routine famotidine (PEPCID) injection 20 mg Given 09/25/2019 11:15 AM EST 20 mg 20 mg, Intravenous, ONCE, 1 dose, On Tue09/25/19 at 1115, Administer 30 minutes prior to PACLitaxel heparin, porcine 100 unit/mL flush 500 Given 09/25/2019 1:02 PM EST 500 Units Units 500 Units, Intravenous, ONCE PRN, Starting on Tue09/25/19 at 1056, Until Tue09/25/19 at 1741, Line Care, Refer to Intravenous (IV) Procedure: Accessing Implanted Vascular Access Devices (654) procedure and/or Intravenous (IV) Job Aid: Adult Flushing & Catheter Care (4836) job aid for additional information regarding guidelines and administration., Routine ondansetron (ZOFRAN) tablet 8 mg Given 09/25/2019 11:08 AM EST 8 mg 8 mg, Oral, ONCE, 1 dose, On Tue09/25/19 at 1115, Administer prior to chemotherapy, Routine PACLitaxel (TAXOL) 155 mg in New Bag 09/25/2019 11:53 AM EST 155 m g 276 mL/hr sodium chloride 0.9% Non-PVC 275.8333 mL chemo infusion 155 mg (rounded from 155.2 mg = 80 mg/m2/dose ? 1.94 m2 Treatment Plan BSA from Recorded weight), Intravenous, ONCE, 1 dose, On Tue09/25/19 at 1215, Administer over 60 Minutes, Warning Vesicant/Irritant Medication sodium chloride 0.9 % (flush) flush 5-20 mL Given 09/25/2019 1:02 PM EST 20 mLs 5-20 mL, Intravenous, EVERY 1 MIN PRN, Starting on Tue09/25/19 at 1056, Until Tue09/25/19 at 1741, Line Care, Flush pertains to all indwelling lines. Flush per protocol found in the job aid using the link provided on this medication record. Refer to Intravenous (IV) Job Aid: Adult Flushing & Catheter Care (8008) job aid for additional information regarding guidelines and administration., Routine documented in this encounter Care Teams Seismic Engineer Relationship Specialty Start Date End Date Mary Chinchilla APRN PCP - General Geriatric Medicine 04/24/[address] [place] [address] documented as of this encounter
--- OUTSIDE RECORDS SUMMARY | 2022-06-18 00:29 | XMS_ITS | Encounter Summary ---
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, unspecified laterality; [address] [facility] Encounter for antineoplastic chemotherapy; [place], [place] [facility] High risk medication use; [phone] HEMATOLOGY/ONCOLO Peripheral polyneuropathy [phone] [place], [place] [address] Social History Tobacco Use Types Packs/Day Years Used Date Never Smoker Smokeless Tobacco: Never Used Alcohol Use Standard Drinks/Week Comments Not Currently 0 (1 standard drink = 0.6 oz pure alcoho l) Sex Assigned at Date Recorded Not on file documented as of this encounter Last Filed Vital Signs Vital Sign Reading Time Taken Comments Blood Pressure 134/72 10/02/2019 9:23 AM EST Pulse 94 10/02/2019 9:23 AM EST Temperature 36.6 ??C (97.9 ??F) 10/02/2019 9:23 AM EST Respiratory Rate 16 10/02/2019 9:23 AM EST Oxygen Saturation 100% 10/02/2019 9:23 AM EST Inhaled Oxygen Concentration - - Weight 82.6 kg (182 lb) 10/02/2019 9:23 AM EST Height 154.9 cm (5' 0.98) 10/02/2019 9:23 AM EST Body Mass Index 34.41 10/02/2019 9:23 AM EST documented in this encounter Progress Notes Minor Gorman MD - 10/02/2019 10:00 AM EST Diagnosis: R IDC 2 foci 24 mm and 10 mm, ER+/MA+ HER2 neg, Gr2, mrg neg, [id number] Subjective: My fingertips are tingly HPI: Oncology history -02/15/19 screening mammogram highly suspicious for malignancy - 02/21/19 right mammo and US hypoechoic 2.2 cm spiculated mass 9:00 5 cm from the nipple +3 hypoechoic spiculated masses in the right breast - 02/28/19 Dr. Dot Hull performed biopsy Pathology IDC, ER+ 90% MA 25-50%, HER2 IHC 0 -04/04/19 right breast mastectomy with sentinel lymph node biopsy Dr. Hull -05/16/19 satrted AC. Interval history: Ms. Rueda is in clinic for follow-up appointment on breast cancer. She received 11 doses of weekly Taxol.Tolerates treatment reasonably well with mild numbness and tingling can his fingertips and feet and some skin discoloration. Denies any nausea, vomiting, fever, chills or pain. Denies shortness of breath 2 PMH: No interval changes since last visit [...] file Gets together: Not on file Attends mandaeism service: Not on file Active member of [...] axillary nodes normal Neurologic: Normal Vitals BP 134/72 (Patient Position: Sitting) Pulse 94 Temp 36.6 ??C (97.9 ??F) (Oral) Resp 16 Ht 154.9 cm (5' 0.98) Wt 82.6 kg (182 lb) SpO2 100% BMI 34.41 kg/m?? Pathology: 02/28/19 I - Outside slide(s) labeled [id number], collection date 02/28/2019. A - Needle biopsies: ??Right breast, 10 o'clock Diagnosis: ?Invasive ductal carcinoma Microcalcifications: ??N/A ER, MA, and HER2 studies (by report): ER: Positive (>90%, strong) MA: Positive (25%, moderate to strong) HER2 IHC: Negative (score 0) B - Needle biopsies: ??Right breast, 9 o'clock Diagnosis: ?Invasive ductal carcinoma Microcalcifications: ??N/A ER, MA, and HER2 studies (by report): ER: Positive (>90%, strong) MA: Positive (50%, moderate to strong) HER2 IHC: Negative (score 0) 04/04/19 A - Right breast, total mastectomy: - Invasive ductal carcinoma, two foci (see Synoptic Report and Discussion) - Ductal carcinoma in-situ - Fibrocystic changes B - [place] lymph node #1, excision: Two lymph nodes positive for metastatic carcinoma (/) Synoptic Report Specimen ?Procedure: ??Total mastectomy ?Specimen Laterality: ?? Right Tumor ?Histologic Type: ?? Invasive carcinoma of no special type (ductal, not ? otherwise specified) ?Histologic Grade ([place] Histologic Score) ? Glandular (Acinar) / Tubular [...] ?? Negative for extensive intraductal ?component (EIC) [id number] ? Location: OPW The signing pathologist has (i) examined the relevant preparation(s) for the specimen(s) and (ii) rendered or confirmed the diagnosis(es). . ? Surgical Pathology DIAGNOSIS CONSULTATION CASE I - Outside slide(s) labeled [id number], collection date 02/28/2019. A - Needle biopsies: ??Right breast, 10 o'clock Diagnosis: ?Invasive ductal carcinoma Microcalcifications: ??N/A ER, MA, and HER2 studies (by report): ER: Positive (>90%, strong) MA: Positive (25%, moderate to strong) HER2 IHC: Negative (score 0) B - Needle biopsies: ??Right breast, 9 o'clock Diagnosis: ?Invasive ductal carcinoma Microcalcifications: ??N/A ER, MA, and HER2 studies (by report): ER: Positive (>90%, strong) MA: Positive (50%, moderate to strong) HER2 IHC: Negative (score 0) II - Outside slide(s) labeled [id number], collection date 04/04/2019. A - Right breast, total mastectomy: - Invasive ductal carcinoma, two foci (see Synoptic Report and Discussion) - Ductal carcinoma in-situ - Fibrocystic changes B - [place] lymph node #1, excision: Two lymph nodes positive for metastatic carcinoma (2/2) Synoptic Report Specimen ?Procedure: ??Total mastectomy ?Specimen Laterality: ?? Right Tumor ?Histologic Type: ?? Invasive carcinoma of no special type (ductal, not ? otherwise specified) ?Histologic Grade ([place] Histologic Score) ? Glandular (Acinar) / Tubular [...] ?? Cannot be determined ? Number of [place] Nodes Examined: ?2 Pathologic Stage Classification (pTNM, AJCC 8th Edition) ?TNM Descriptors: ?? m (multiple foci of invasive carcinoma) ?Primary Tumor (Invasive Carcinoma) (pT): ?pT2 ?Regional Lymph Nodes (pN) ? Modifier: ??(sn): Only sentinel node(s) evaluated. Category (pN): ?? pN1a Tumor Block(s): ?? A7 9 o'clock tumor; ??A10 10 o'clock tumor DISCUSSION The two foci of invasive carcinoma have similar morphology. Labs: 10/02/2019 sodium 139, potassium 3.5, BUN 15, creatinine 0.85, calcium 9.2, TB 0.4, AST 27, ALT 55, alkaline phosphatase 57, total protein 7.1, albumin 3.9 WBC 2.63, hemoglobin 9.9, platelet count 257, ANC 1.49 09/25/2019 sodium 143, potassium 3.9, ALT 70.7, TB 0.4, 58, 0.5, WBC 2.53, hemoglobin 10.1, plateletcount 265, ANC 1.55. Imagin02/21/19 right mammo and US hypoechoic 2.2 cm spiculated mass 9:00 5 cm from the nipple +3 hypoechoicspiculated masses in the right breast Assessment and Plan: Diagnosis: R IDC 2 foci 24 mm and 10 mm, ER+/MA+ HER2 neg, Gr2, mrg neg, SN 2/2, [id number] Treatment: - 04/04/19 right breast mastectomy with sentinel lymph node biopsy Dr. Hull -05/16/19 - 07/03/19 4 cycles of AC -07/16/19 started weekly Taxol. We discussed prognosis of breast cancer. According to [employer] tool chemotherapy with dose dense AC-T and [...] after 15 years Nery is currently on weekly paclitaxel. Tolerates treatment well with grade 1 peripheral neuropathy, skin discoloration. Proceed with 12th dose of weekly Taxol. She will follow with radiation oncologist Dr. Rae for adjuvant radiation therapy. I will see him back in 2-3 weeks after completion of ra diation for discussion of hormonal treatment. #Peripheral neuropathy: Grade 1 Plan: 1. Final weekly Taxol today 2. F/u with Dr. Rae. 3. Next visit in 2 weeks with blood work after completion of radiation The plan was discussed with the patient [...] neuropathy documented in this encounter Care Teams Freight Caller Relationship Specialty Start Date End Date Mary Chinchilla APRN PCP - General Geriatric Medicine 04/24/[address] [place] [address] documented as of this encounter
--- OUTSIDE RECORDS SUMMARY | 2022-06-18 00:30 | XMS_ITS | Encounter Summary ---
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, unspecified laterality Minor Gorman MD [facility] Hem Onc Office Procedures TC PALONOSETRON HCL, 25MCG, INJECTION (ALOXI) TC APREPITANT, 1 MG, INJECTION TC DOXORUBICIN HCL, 10MG, INJECTION (ADRIAMYCIN) TC CYCLOPHOSPHAMIDE, 100MG (CYTOXAN) TC PEGFILGRASTIM, 6MG, INJECTION [address] HEMATOLOGY/[place] [phone] Fax: Referral ID Status Reason Start Date Expiration Date Visits Requ ested Visits Authorized [id number] Closed 05/10/2019 12/13/2019 99 99 Encounter Details Date Type Department Care Team Description 05/29/2019 Infusion Hematology Oncology at [facility] 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, unspecified laterality; [facility] 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, unspecified laterality [address] [place] [phone] Social History Tobacco Use Types Packs/Day Years Used Date Never Smoker Smokeless Tobacco: Never Used Sex Assigned at Date Recorded Not on file documented as of this encounter Progress Notes Michelle Valverde RN - 05/29/2019 11:30 AM EDT INFUSION THERAPY ADMINISTRATION NOTES DIAGNOSIS: Breast Cancer CYCLE #:1 Day 1 REASON FOR VISIT: AC + IV Potassium + Onpro SUBJECTIVE Nery offers no complaints. She is weepy today. OBJECTIVE LAB DATA: WBC 7.65, Hgb/HCT 12.8/38.5, PLT 191, ANC 45.05, BUN/Cr 18/0.72, K 2.9 IV ACCESS: Mediport accessed at [facility] for lab draw, blood return not present, cathflo successful and flushes easily. Pre administration: Chemotherapy orders independently verified for drug name, route, and dosage per patient's height, weight and BSA by Tavo Valverde RN & [facility] onsite. REACTIONS (DESCRIPTION, TIME, INTERVENTION AND EFFECTIVENESS) none ASSESSMENT Nery was awake, alert and tolerated treatment well. Onpro in place. PLAN Return to clinic per routine. documented in [...] Site alteplase (CATHFLO) injection 2 mg Given 05/29/2019 11:15 AM EDT 2 mg 2 mg, Intravenous, ONCE PRN, Starting on Tue05/29/19 at 1107, Until Tue05/29/19 at 1829, Line Occlusion, Refer to Cathflo Activase (Alteplase) Administration policy for additional information regarding guidelines and administration., Routine aprepitant (CINVANTI) injection Emul 130 mg Given 05/29/2019 1:11 PM EDT 130 mg 130 mg, Intravenous, ONCE, 1 dose, On Tue05/29/19 at 1330, Alternative administration of IV push over 2 minutes is a recommendation from the conche operator. Administer prior to chemotherapy., Routine cyclophosphamide (CYTOXAN) 1,146 New Bag 05/29/2019 1:57 PM ED T 1,146 mg 615 mL/hr mg in sodium chloride 0.9% 307.3 mL chemo infusion 1,146 mg (600 mg/m2/dose ? 1.91 m2 Treatment Plan BSA from Recorded weight), Intravenous, ONCE, 1 dose, On Tue05/29/19 at 1415, Administer over 30 Minutes, Warning Vesicant/Irritant Medication dexamethasone (DECADRON) tablet 10 mg Given 05/29/2019 1:11 PM EDT 10 mg 10 mg, Oral, ONCE, 1 dose, On Tue05/29/19 at 1330, Administer prior to chemotherapy, Routine DOXOrubicin (ADRIAMYCIN) chemo injection Given 05/29/2019 1:50 P M EDT 114.6 mg 114.6 mg 114.6 mg (60 mg/m2/dose ? 1.91 m2 Treatment Plan BSA from Recorded weight), Intravenous, ONCE, 1 dose, On Tue05/29/19 at 1415, Administer each syringe over a minimum of 3 minutes per syringe. heparin, porcine 100 unit/mL flush 500 Given 05/29/2019 4:02 PM EDT 500 Units Units 500 Units, Intravenous, ONCE PRN, Starting on Tue05/29/19 at 1301, Until Tue05/29/19 at 1829, Line Care, Refer to Intravenous (IV) Procedure: Accessing Implanted Vascular Access Devices (334) procedure and/or Intravenous (IV) Job Aid: Adult Flushing & Catheter Care (8728) job aid for additional information regarding guidelines and administration., Routine LORazepam (ATIVAN) tablet 0.5 mg Given 05/29/2019 1:11 PM EDT 0.5 mg 0.5 mg, Oral, ONCE, 1 dose, On Tue05/29/19 at 1330, Administer prior to chemotherapy, Routine palonosetron (ALOXI) injection 0.25 mg Given 05/29/2019 1:11 PM EDT 0.25 mg 0.25 mg, Intravenous, ONCE, 1 dose, On Tue05/29/19 at 1330, Administer over 30 seconds. Administer prior to chemotherapy, Routine pegfilgrastim (NEULASTA ONPRO) Given 05/29/2019 1:58 PM EDT 6 mg Right Arm injection kit 6 mg, Subcutaneous, ONCE, 1 dose, On Tue05/29/19 at 1330, Allow the prefilled syringe co-packaged with the on-body injector to reach room temperature at least 30 minutes prior to administration., Routine potassium chloride 20 mEq in 100 mL New Bag 05/29/2019 2:53 PM EDT 20 mEq 100 mL/hr 20 mEq, Intravenous, EVERY HOUR, 2 doses, First dose on Tue05/29/19 at 1400, Last dose on Tue05/29/19 at 1500, Administer over 60 Minutes, Central line use only. New Bag 05/29/2019 1:57 PM EDT 20 mEq 100 mL/hr sodium chloride 0.9 % (flush) flush 5-20 mL Given 05/29/2019 4:02 PM EDT 20 mLs 5-20 mL, Intravenous, EVERY 1 MIN PRN, Starting on Tue05/29/19 at 1301, Until Tue05/29/19 at 1829, Line Care, Flush pertains to all indwelling lines. Flush per protocol found in the job aid using the link provided on this medication record. Refer to Intravenous (IV) Job Aid: Adult Flushing & Catheter Care (8235) job aid for additional information regarding guidelines and administration., Routine documented in this encounter Care Teams Orange Picker Relationship Specialty Start Date End Date Mary Chinchilla APRN PCP - General Geriatric Medicine 04/24/[address] [place] [place] [address] documented as of this encounter
--- OUTSIDE RECORDS SUMMARY | 2022-06-18 00:30 | XMS_ITS | Encounter Summary ---
:1950 [place] [address] Care Team Providers Name Role Phone Nery Macedo APRN Primary Care Provider [phone] Encounter Details Date Type Department Care Team Description 02/15/2019 Ancillary Procedure Radiology Library at Se lio Gorman [facility] [place] [address] HEMATOLOGY/ONCOLOGY [phone] [place], [place] [address] (Wo rk) Social History Tobacco Use Types Packs/Day Years Used Date Never Assessed Sex Assigned at Date Recorded Not on file documented as of this encounter Plan of Treatment Not on filedocumented as of this encounter Procedures Procedure Name Priority Date/Time Associated Diagnosis Comme nts FILM LIBRARY Routine 02/15/2019 12:00 AM Results for this STORAGE ONLY MAMMO EDT procedure are in the results section. documented in this encounter Results Film Library- Storage Only Mammo (02/15/2019 12:00 AM EDT) Specimen (Source) Anatomical Location Collection Method / Collectio n Time Received Time / Laterality Volume Narrative RAD - 04/19/2019 1:42 PM EDT This exam is auto-finalizing. It's purpo se is for storage only. Minor Gorman MD Noé FILM LIBRARY ORDERABLES Performing Organization Address City/State/ZIP Code Phon e Number RAD [place], [place] documented in this encounter Visit Diagnoses Not on filedocumented in this encounter Care Teams Cpc Coder Relationship Specialty Start Date End Date Nery Macedo APRN PCP - General 10/06/10 04/23/[address] [place] [address] documented as of this encounter
--- OUTSIDE RECORDS SUMMARY | 2022-06-18 00:30 | XMS_ITS | Encounter Summary ---
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, unspecified laterality; [address] [place] [address] Drive [facility] Encounter for antineoplastic chemotherapy; [place], [place] [facility] High risk medication use [phone] HEMATOLOGY/ONCOLO [phone] [place], [place] [address] Social History Tobacco Use Types Packs/Day Years Used Date Never Smoker Smokeless Tobacco: Never Used Alcohol Use Standard Drinks/Week Comments Not Currently 0 (1 standard drink = 0.6 oz pure alcoho l) Sex Assigned at Date Recorded Not on file documented as of this encounter Last Filed Vital Signs Vital Sign Reading Time Taken Comments Blood Pressure 170/73 07/17/2019 9:37 AM EDT Pulse 78 07/17/2019 9:37 AM EDT Temperature 36.8 ??C (98.2 ??F) 07/17/2019 9:37 AM EDT Respiratory Rate 16 07/17/2019 9:37 AM EDT Oxygen Saturation 97% 07/17/2019 9:37 AM EDT Inhaled Oxygen Concentration - - Weight 86.2 kg (190 lb) 07/17/2019 9:37 AM EDT Height 154.9 cm (5' 0.98) 07/17/2019 9:37 AM EDT Body Mass Index 35.92 07/17/2019 9:37 AM EDT documented in this encounter Progress Notes Minor Gorman MD - 07/17/2019 9:30 AM EDT Diagnosis: R IDC 2 foci 24 mm and 10 mm, ER+/VA+ HER2 neg, Gr2, mrg neg, [id number] Subjective:I feel fine HPI: Oncology history -02/15/19 screening mammogram highly suspicious for malignancy - 02/21/19 right mammo and US hypoechoic 2.2 cm spiculated mass 9:00 5 cm from the nipple +3 hypoechoic spiculated masses in the right breast - 02/28/19 Dr. Dot Hull performed biopsy Pathology IDC, ER+ 90% VA 25-50%, HER2 IHC 0 -04/04/19 right breast mastectomy with sentinel lymph node biopsy Dr. Hull -05/16/19 satrted dd AC. Interval history: Ms. Rueda is in clinic for follow-up appointment on breast cancer. She received 3cycles of AC. Last week chemotherapy with held due to neutropenia. Onpro applicator fell off. Overall, she tolerates treatment well. Denies any nausea, vomiting, pain, fatigue, fever or chills. PMH: No interval changes since last visit Osteoarthritis of right knee, glaucoma, hypertension, hyperlipidemia, subclinical hypothyroidism Appendectomy, tubal ligation Social History: Non-smoker, drinks socially. 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 [...] file Gets together: Not on file Attends confucianism service: Not on file Active member of [...] Narrative ??? Not on file Family History: Mother had cervical cancer (? Ovarian cancer) OBGYN History: Allergies: No Known Allergies NKDA Medications: Review [...] difficulty urinating. Musculoskeletal: Negative. Skin: Negative. Neurological: Negative. Hematological: Negative for adenopathy. PE: General: AAAx3, [...] edema Pulses: 2+ and symmetric Skin: Skin color, texture, turgor normal, no rashes or lesions Lymph nodes: Cervical, supraclavicular, and axillary nodes normal Neurologic: Normal Vitals BP 170/73 (Patient Position: Sitting) Pulse 78 Temp 36.8 ??C (98.2 ??F) (Oral) Resp 16 Ht 154.9 cm (5' 0.98) Wt 86.2 kg (190 lb) SpO2 97% BMI 35.92 kg/m?? Pathology: 02/28/19 I - Outside slide(s) labeled [id number], collection date 02/28/2019. A - Needle biopsies: ??Right breast, 10 o'clock Diagnosis: ?Invasive ductal carcinoma Microcalcifications: ??N/A ER, VA, and HER2 studies (by report): ER: Positive (>90%, strong) VA: Positive (25%, moderate to strong) HER2 IHC: Negative (score 0) B - Needle biopsies: ??Right breast, 9 o'clock Diagnosis: ?Invasive ductal carcinoma Microcalcifications: ??N/A ER, VA, and HER2 studies (by report): ER: Positive (>90%, strong) VA: Positive (50%, moderate to strong) HER2 IHC: Negative (score 0) 04/04/19 A - Right breast, total mastectomy: - Invasive ductal carcinoma, two foci (see Synoptic Report and Discussion) - Ductal carcinoma in-situ - Fibrocystic changes B - [place] lymph node #1, excision: Two lymph nodes [...] ?? Negative for extensive intraductal ?component (EIC) [id number] ? Location: OPW The signing pathologist has (i) examined the relevant preparation(s) for the specimen(s) and (ii) rendered or confirmed the diagnosis(es). . ? Surgical Pathology DIAGNOSIS CONSULTATION CASE I - Outside slide(s) labeled [id number], collection date 02/28/2019. A - Needle biopsies: ??Right breast, 10 o'clock Diagnosis: ?Invasive ductal carcinoma Microcalcifications: ??N/A ER, VA, and HER2 studies (by report): ER: Positive (>90%, strong) VA: Positive (25%, moderate to strong) HER2 IHC: Negative (score 0) B - Needle biopsies: ??Right breast, 9 o'clock Diagnosis: ?Invasive ductal carcinoma Microcalcifications: ??N/A ER, VA, and HER2 studies (by report): ER: Positive (>90%, strong) VA: Positive (50%, moderate to strong) HER2 IHC: Negative (score 0) II - Outside slide(s) labeled [id number], collection date 04/04/2019. A - Right breast, total mastectomy: - Invasive ductal carcinoma, two foci (see Synoptic Report and Discussion) - Ductal carcinoma in-situ - Fibrocystic changes B - [place] lymph node #1, excision: Two lymph nodes positive for metastatic carcinoma (2/) Synoptic Report Specimen ?Procedure: ??Total mastectomy ?Specimen Laterality: ?? Right Tumor ?Histologic Type: ?? Invasive carcinoma of no special type (ductal, not ? otherwise specified) ?Histologic Grade ([place] Histologic Score) ? Glandular (Acinar) / Tubular [...] ?? Cannot be determined ? Number of [place] Nodes Examined: ?2 Pathologic Stage Classification (pTNM, AJCC 8th Edition) ?TNM Descriptors: ?? m (multiple foci of invasive carcinoma) ?Primary Tumor (Invasive Carcinoma) (pT): ?pT2 ?Regional Lymph Nodes (pN) ? Modifier: ??(sn): Only sentinel node(s) evaluated. Category (pN): ?? pN1a Tumor Block(s): ?? A7 9 o'clock tumor; ??A10 10 o'clock tumor DISCUSSION The two foci of invasive carcinoma have similar morphology. Labs: 07/17/2019 WBC 4.89, hemoglobin 10.8, platelet count 221, ANC 3.28, BUN 22, creatinine 0.72, calcium 8.5, TB 0.3, AST 13, ALT 19, alkaline phosphatase 82, total protein 6.7, albumin 3.3 07/03/2019 WBC 5.13, hemoglobin 11.8, platelet count 393, ANC 2.76, sodium 144, potassium 3.6, BUN 20, creatinine 0.87, TB 0.2, AST 19, ALT 27, alkaline phosphatase 59, total protein 6.9, albumin 3.3. Imagin02/21/19 right mammo and US hypoechoic 2.2 cm spiculated mass 9:00 5 cm from the nipple +3 hypoechoicspiculated masses in the right breast Assessment and Plan: Diagnosis: R IDC 2 foci 24 mm and 10 mm, ER+/VA+ HER2 neg, Gr2, mrg neg, [id number] Treatment: - 04/04/19 right breast mastectomy with sentinel lymph node biopsy Dr. Hull We discussed prognosis of breast cancer. According [...] fewer cancer deaths after 15 years Nery will complete first cycle of adjuvant dose dense doxorubicin 60 mg/m?? and cyclophosphamide 600 mg/m?? with Neulasta support today We talked about adjuvant paclitaxel either dose dense every 2 weeks or weekly fashion. We discussed benefits and risks of paclitaxel 80 mg/m?? weekly for total of 12 weeks. Adjuvant paclitaxel in addition to AC improves overall survival in patients with breast cancer. We discussed side effects of paclitaxel which include but not limited to nausea, vomiting, fatigue, numbness/tingling/pain in extremities, allergic reaction, low blood counts, infection including life- threatening infections. All questions were answered to patient's satisfaction. She is interested to proceed with weekly paclitaxel. Informed verbal consent was obtained. We will start paclitaxel weekly today Plan: 1. Weekly Taxol today 2. Next [...] Date/Time Associated Diagnosis Comme nts LAB SCAN 07/17/2019 12:00 AM Results for this EDT procedure are i n the results section . documented in this encounter Results SCAN DOC: LAB (07/17/2019 12:00 AM EDT) Narrative 07/17/2019 12:00 AM EDT This result has an [...] for long-term (current) use of other medications documented in this encounter Care Teams Bench Worker Hollow Handle Relationship Specialty Start Date End Date Mary Chinchilla APRN PCP - General Geriatric Medicine 04/24/[address] [place] [address] documented as of this encounter
--- OUTSIDE RECORDS SUMMARY | 2022-06-18 00:30 | XMS_ITS | Encounter Summary ---
:1950 [place] [address] Care Team Providers Name Role Phone Mary Chinchilla APRN Primary Care Provider Reason for Visit Reason Comments Chemotherapy Cycle 1, Day 8; Paclitaxel High Dollar Medication (Routine) - Specialty Diagnoses / Procedures Referred By Contact Refer red To Contact Hematology and Diagnoses Malignant neoplasm of unspecified site of unspecified female breast Secondary and unspecified malignant neoplasm of axilla and upper limb lymph nodes SD @ 930 Taxol (Paclitaxel) - Weekly Minor Gorman Stj Hem Onc Infus ion Oncology Procedures TC PACLITAXEL, 1MG, INJ INFUSION ROOM [address] [place] [phone] HEMATOLOGY/[place] [address] Referral ID Status Reason Start Date Expiration Date Visits V isits Requested Authorized [id number] 07/17/2019 07/16/2020 99 99 Encounter Details Date Type Department Care Team Description 07/24/2019 Infusion Hematology Oncology at [facility] 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, unspecified laterality; [facility] 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, unspecified laterality [address] [place] [phone] Social History Tobacco Use Types Packs/Day Years Used Date Never Smoker Smokeless Tobacco: Never Used Alcohol Use Standard Drinks/Week Comments Not Currently 0 (1 standard drink = 0.6 oz pure alcoho l) Sex Assigned at Date Recorded Not on file documented as of this encounter Progress Notes Geronimo Sprague RN - 07/24/2019 10:30 AM EDT INFUSION THERAPY ADMINISTRATION NOTES DIAGNOSIS: Breast cancer CYCLE #: Cycle 1, Day 1 - First of 12 planned Paclitaxels REASON FOR VISIT: To receive chemotherapy SUBJECTIVE: Nery offers no complaints. OBJECTIVE: Seen by provider. Ready to treat. LAB DATA: WDL for today's infusion, reviewed by Chris Amaro APRN IV ACCESS: Port accessed off site. No blood return; cathflo instilled. Removed after 30 min with blood return noted. Pre administration: Chemotherapy orders independently verified for drug name, route, and dosage per patient's height, weight and BSA by GERONIMO SPRAGUE, EDE and Luis Grullon [facility]. [...] Site alteplase (CATHFLO) injection 2 mg Given 07/24/2019 11:08 AM EDT 2 mg 2 mg, Intravenous, ONCE PRN, Starting on Tue07/24/19 at 1058, Until Tue07/24/19 at 1847, Line Occlusion, Refer to Cathflo Activase (Alteplase) Administration policy for additional information regarding guidelines and administration., Routine dexamethasone (DECADRON) injection 10 mg Given 07/24/2019 11:45 AM EDT 10 mg 10 mg, Intravenous, ONCE, 1 dose, On Tue07/24/19 at 1100, Administer 30 minutes prior to PACLitaxel diphenhydrAMINE (BENADRYL) capsule 50 mg Given 07/24/2019 11:44 AM EDT 50 mg 50 mg, Oral, ONCE, 1 dose, On Tue07/24/19 at 1100, Administer 30 minutes prior to PACLitaxel, Routine famotidine (PEPCID) injection 20 mg Given 07/24/2019 11:45 AM EDT 20 mg 20 mg, Intravenous, ONCE, 1 dose, On Tue07/24/19 at 1100, Administer 30 minutes prior to PACLitaxel heparin, porcine 100 unit/mL flush 500 Given 07/24/2019 1:41 PM EDT 500 Units Units 500 Units, Intravenous, ONCE PRN, Starting on Tue07/24/19 at 1030, Until Tue07/24/19 at 1847, Line Care, Refer to Intravenous (IV) Procedure: Accessing Implanted Vascular Access Devices (654) procedure and/or Intravenous (IV) Job Aid: Adult Flushing & Catheter Care (6991) job aid for additional information regarding guidelines and administration., Routine ondansetron (ZOFRAN) tablet 8 mg Given 07/24/2019 11:44 AM EDT 8 mg 8 mg, Oral, ONCE, 1 dose, On Tue07/24/19 at 1100, Administer prior to chemotherapy, Routine PACLitaxel (TAXOL) 155 mg in New Bag 07/24/2019 12:31 PM EDT 155 m g 276 mL/hr sodium chloride 0.9% Non-PVC 275.8333 mL chemo infusion 155 mg (rounded from 155.2 mg = 80 mg/m2/dose ? 1.94 m2 Treatment Plan BSA from Recorded weight), Intravenous, ONCE, 1 dose, On Tue07/24/19 at 1145, Administer over 60 Minutes, Warning Vesicant/Irritant Medication sodium chloride 0.9 % (flush) flush 5-20 mL Given 07/24/2019 1:41 PM EDT 20 mLs 5-20 mL, Intravenous, EVERY 1 MIN PRN, Starting on Tue07/24/19 at 1030, Until Tue07/24/19 at 1847, Line Care, Flush pertains to all indwelling lines. Flush per protocol found in the job aid using the link provided on this medication record. Refer to Intravenous (IV) Job Aid: Adult Flushing & Catheter Care (9162) job aid for additional information regarding guidelines and administration., Routine documented in this encounter Care Teams Dehydrogenation Converter Helper Relationship Specialty Start Date End Date Mary Chinchilla APRN PCP - General Geriatric Medicine 04/24/[address] [place] [address] [place] [address] documented as of this encounter
--- OUTSIDE RECORDS SUMMARY | 2022-06-18 00:30 | XMS_ITS | Encounter Summary ---
:1950 [place] [address] Care Team Providers Name Role Phone Mary Chinchilla APRN Primary Care Provider Encounter Details Date Type Department Care Team Description 07/13/2019 Orders Only Hematology and Oncology at Minor Blanco MD [facility] Iwona holland HEMATOLOGY/[place] [address] [place] [address] [phone] (Wo rk) Social History Tobacco Use Types [...] on filedocumented in this encounter Care Teams Diet Consultant Relationship Specialty Start Date End Date Mary Chinchilla APRN PCP - General Geriatric Medicine 04/24/[address] [place] [address] documented as of this encounter
--- OUTSIDE RECORDS SUMMARY | 2022-06-18 00:30 | XMS_ITS | Encounter Summary ---
:1950 Author Organization [facility] [place] [address] Care Team Providers Name Role Phone Nery Macedo NIC Primary Care Provider [phone] Encounter Details Date Type Department Care Team Description 04/19/2019 Hospital Encounter Laboratory [facility] [place] [address] Social History Tobacco Use Types Packs/Day Years Used Date Never Assessed Sex Assigned at Date Recorded Not on file documented as of this encounter Medications at Time of Discharge Medication Sig Dispensed Refills Start Date End Date ibuprofen (ADVIL;MOTRIN) Take 600 mg by mouth 4 0 04/05/2019 600 mg Tablet daily as needed. documented as of this encounter Plan of Treatment Not on filedocumented as of this encounter Procedures Procedure Name Priority Date/Time Associated Diagnosis Comme [facility] SURGICAL PATHOLOGY Routine 04/19/2019 12:05 PM Re sults for this REPORT EDT procedure are i n the results section. documented in this encounter Results Surgical Pathology Report (04/19/2019 12:05 PM EDT) Component Value Ref Test Analysis Performed At [facility] Method Time Signature Surgical [id number] ? Location: [facility] Report The signing pathologist has (i) examined the relevant preparation(s) for the [facility]ORIAL specimen(s) and (ii) rendered or confirmed the diagnosis(es) . HOSPITAL LABORATORY . ?Surgic al Pathology DIAGNOSIS CONSULTATION CASE I - Outside slide(s) labeled [id number], collection date 02/28. A - Needle biopsies: ??Right breast, 10 o'clock Diagnosis: ?Invasive ductal carcinoma Microcalcifications: ??N/A ER, TN, and HER2 studies (by report): ER: Positive (>90%, strong) TN: Positive (25%, moderate to strong) HER2 IHC: Negative (score 0) B - Needle biopsies: ??Right breast, 9 o'clock Diagnosis: ?Invasive ductal carcinoma Microcalcifications: ??N/A ER, TN, and HER2 studies (by report): ER: Positive (>90%, strong) TN: Positive (50%, moderate to strong) HER2 IHC: Negative (score 0) II - Outside slide(s) labeled [id number], collection date 03/15. A - Right breast, total mastectomy: - Invasive ductal carcinoma, two foci (see Synoptic Report a nd Discussion) - Ductal carcinoma in-situ - Fibrocystic changes B - Rutherford lymph node #1, excision: Two lymph nodes positive for metastatic carcinoma (12/16) Synoptic Report Specimen ? Procedure: ??Total mastectomy ? Specimen Laterality: ?? Right Tumor ? Histologic Type : ?? Invasive carcinoma of no special type (ductal, not ?otherwise specified) ? Histologic Grade (Cally Histologic Score) ?Glandular (Acinar) / Tubular Differe ntiation: ?Score 3 ?Nuclear Pleomorphism: ?? Score 2 ?Number of Mitoses per 10 High-Power Hart: ?10 mitotic figures ?Diameter o f Microscope Field in Millimeters (mm): ?0.55 mm ?Mitotic Rate: ?? Score 2 (4-7 mitoses per mm2) ?Overall Grade: ?? Grade 2 (scores of 6 or 7) ? Tumor Size: ?? 24 Millimeters (mm) ? Tumor Focality: ?? Multiple foci of invasive ca rcinoma ?Number of Foci: ?? 2 ?Sizes of Individual Foci: ?? 24 mm, 10 mm ? Ductal Carcinoma In Situ (DCIS): ?Present ?Ductal Car cinoma In Situ (DCIS): ?? Negative for extensive intraductal ? component (EIC) . DIAGNOSIS ?Architectural Patterns: ?? Solid ?Nuclear Grade: ?? Grade II (intermediate) ?Necrosis: ??Present, central (expans sri comedo necrosis) ? Tumor Extent ?Skin: ??In vasive carcinoma does not invade into the dermis or epidermis ?Skeletal Muscle: ?? No skeletal muscle is present ? Accessory Findings ?Lymphovasc ular Invasion: ?? Cannot be determined - Extensive fixation/ ?retraction artifact present ?Treatment Effect: ?? No known presurgical therapy Margins ? Invasive Carcinoma Margins: ?? Uninvolved by invasive carcinoma ?Distance f rom Other Specified Margin: ?All margins >2 Millimeters (mm) ? DCIS Margins: ?? Uninvolved by DCIS ?Distance of DCIS to An terior Margin: ?2 Millimeters (mm) Lymph Nodes ? Regional Lymph Nodes: ?? Involved by tumor cell s ?Number of Lymph Nodes with Macrometastases : ?2 ?Number of Lymph Nodes with Micrometastases : ?0 ?Number of Lymph Nodes with Isolated Tumor Cells: ?0 ?Size of Largest Metast atic Deposit: ?17 Millimeters (mm) ?Extranodal Extension: ?? Cannot be determi ashish ?Number of Rutherford Nodes Examined: ?2 Pathologic Stage Classification (pTNM, AJCC 8th Edition) ? TNM Descriptors: ?? m (multiple foci of invasiv e carcinoma) ? Primary Tumor (Invasive Carcinoma) (pT): ?p T2 ? Regional Lymph Nodes (pN) ?Modifier: ??(sn): Only sentinel node(s) ev aluated. ?Category (pN): ?? pN1a Tumor Block(s): ?? A7 9 o'clock tumor; ??A10 10 o'clock tumo r CAP eCC December 2017 Agile Release Electronically signed by: ??Garett MORTENSEN, Rene Bustillo Verified: ??04/21/2019 ?Pathologist Performed at: ??-[facility] Dept. of Pathology, [place], [place] DISCUSSION The two foci of invasive carcinoma have similar morphology. CLINICAL INFORMATION Specimen Submitted: CONSULTATION CASE A - 9 slide(s) labeled [id number], collection date 02/28/2019. B - 21 slide(s) labeled [id number], collection date 04/04/2019 . [id number] Report to: [facility] Surgical Pathology Department [facility], [facility], 2nd Floor [address] [place], [place] ??[address] SPECIMEN PROCESSING [facility] ([facility]) pathology slide(s) are reviewed. ??Refer to Diagnosis and Specimen Submitted for specific case infor flip. For the full text of the [facility] ([facility]) report(s) please refer to Non-DH Documentati on Pathology in the electronic health record (eDH). Specimen (Source) Anatomical Collection Method Collection Time Re ceived Time Location / / Volume Laterality 04/19/2019 12:05 PM EDT Minor Gorman MD PATHOLOGY/CYTOLOGY ORDERABLE S Performing Organization Address City/State/ZIP [place] [address] documented in this encounter Visit Diagnoses Not on filedocumented in this encounter Care Teams Television Tube Inspector Relationship Specialty Start Date End Date Nery Macedo APRN PCP - General 10/06/10 04/23/[address] [place] [address] documented as of this encounter
--- OUTSIDE RECORDS SUMMARY | 2022-06-18 00:30 | XMS_ITS | Encounter Summary ---
:1950 Author Organization [facility] [place] [address] Care Team Providers Name Role Phone Mary Chinchilla APRN Primary Care Provider Encounter Details Date Type Department Care Team Description 06/04/2019 Notes [facility] OFFICE OF CARE [address] [place] [phone] Social History Tobacco Use Types Packs/Day Years Used Date Never Smoker Smokeless Tobacco: Never Used Alcohol Use Standard Drinks/Week Comments Not Currently 0 (1 standard drink = 0.6 oz pure alcoho l) Sex Assigned at Date Recorded Not on file documented as of this encounter Progress Notes Martine Negron MSW - 06/04/2019 11:14 AM EDT Reason for Referral: Brief assessment of social and emotional needs. Met with pt after new patient visit with Dr. Rae. Kenyetta Rosales RN indicated pt scored a 6 on her distress screen and was a bit weepy today. Social Supports: Pt reports her primary support is her Ed of 49 years. They have 2 daughtersand one son. They live local. They have 8 grandchildren. Living Situation/Daily Activities/Transportation: Pt reports she manages her daily chores and activities. She is very tired so she does not get done all that she wants. She does not expect any issues with transportation. 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 She is very tired and may seak to her HR people re her options to take some time. She has [facility] for insurance. Advance Directives: Pt is working on her advance directive. Offered to assist her if she is in need of some continued conversation or help completing her directive. Utilization of Community Resources: None at this time. Adjustment to Illness/Mental Health Issues: Pt indicated she did really well after her first chemo. The second on however was difficult for her and she is very tired. She is going to be taking to [facility] RN re getting a wig as her hair has started to fall out. She does have support from her familyand friends. Offered support. Identified Needs: Pt did not identify any needs at this time other than getting a wig. Referrals: D[facility] RN, [facility] [facility] Plan: Informed pt of DAIR[employer] SALES CONSULTANT availability and will follow for support and resources. documented in this encounter Plan of Treatment Not on filedocumented as of this encounter Visit Diagnoses Not on filedocumented in this encounter Care Teams Siebel Crm Developer Relationship Specialty Start Date End Date Mary Chinchilla APRN PCP - General Geriatric Medicine 04/24/[address] [place] [address] documented as of this encounter
--- OUTSIDE RECORDS SUMMARY | 2022-06-18 00:30 | XMS_ITS | Encounter Summary ---
:1950 Author Organization [facility] [address] Care Team Providers Name Role Phone Mary Chinchilla APRN Primary Care Provider Reason for Visit Reason Onset Date Comments Medication Problem 05/04/2019 Compazine backorder Encounter Details Date Type Department Care Team Description 05/04/2019 Telephone Hematology Oncology at Michelle Valverde, Medication Problem [facility] RN (Compazine backorder) [address] [place] [phone] Social History Tobacco Use Types Packs/Day Years Used Date Never Smoker Smokeless Tobacco: Never Used Sex Assigned at Date Recorded Not on file documented as of this encounter Miscellaneous Notes Telephone Encounter - Michelle Valverde RN - 05/04/2019 2:09 PM EDT [facility] called and stated the compazine is on backorder through them and is wondering if the pt would like it sent to their local pharmacy or substitute med script sent to [facility]. Pt is on vacation and did not answer the phone. Note has been made for 05/08 when pt comes in to see Dr. Gorman to ask about preference. documented in this encounter Plan of Treatment Not on filedocumented as of this encounter Visit Diagnoses Not on filedocumented in this encounter Care Teams Shoes Hand Sewer Relationship Specialty Start Date End Date Mary Chinchilla APRN PCP - General Geriatric Medicine 04/24/19 [facility] [address] [place], [place] [id number] documented as of this encounter
--- OUTSIDE RECORDS SUMMARY | 2022-06-18 00:30 | XMS_ITS | Encounter Summary ---
:1950 Author Organization [place] [address] Care Team Providers Name Role Phone Mary Chinchilla APRN Primary Care Provider Encounter Details Date Type Department Care Team Description 05/16/2019 Clinical Support Hematology/Oncology Marcella Amaro neoplasm at [facility] Soni Cooper APRN [place] [address] [facility] of right [place], [place] breast in female, [id number] estrogen receptor [phone] positive (Work) Social History Tobacco Use Types Packs/Day Years Used Date Never Smoker Smokeless Tobacco: Never Used Sex Assigned at Date Recorded Not on file documented as of this encounter Last Filed Vital Signs Vital Sign Reading Time Taken Comments Blood Pressure 147/82 05/16/2019 9:28 AM EDT Pulse 77 05/16/2019 9:28 AM EDT Temperature 36.6 ??C (97.9 ??F) 05/16/2019 9:28 AM EDT Respiratory Rate 18 05/16/2019 9:28 AM EDT Oxygen Saturation 98% 05/16/2019 9:28 AM EDT Inhaled Oxygen Concentration - - Weight 87.3 kg (192 lb 6.4 oz) 05/16/2019 9:28 AM EDT Height 154.9 cm (5' 1) 05/16/2019 9:28 AM EDT Body Mass Index 36.35 05/16/2019 9:28 AM EDT documented in this encounter Progress Notes Soni Amaro APRN - 05/16/2019 9:30 AM EDT Subjective: Patient ID: Nery Rueda is a 68 y.o. female. Diagnosis: R IDC 2 foci 24 mm and 10 mm, ER+/OR+ HER2 neg, Gr2, mrg neg, [id number] HPI: Oncology history -02/15/19 screening mammogram highly suspicious for malignancy - 02/21/19 right mammo and US hypoechoic 2.2 cm spiculated mass 9:00 5 cm from the nipple +3 hypoechoic spiculated masses in the right breast - 02/28/19 Dr. Dot Hull performed biopsy Pathology IDC, ER+ 90% OR 25-50%, HER2 IHC 0 -04/04/19 right breast mastectomy with sentinel lymph node biopsy Dr. Hull Interval History: Ms. Rueda is in clinic for follow-up appointment on breast cancer. She is scheduled for chemotherapy education prior to starting therapy with Adriamycin and Cytoxan. She reports anxiety, but denies pain, fever, chills, night sweats or unusual bleeding. PMH, PSH, FH, and SH: Unchanged from last office visit. Review of Systems Constitutional: Negative. HENT: Negative. Eyes: Negative. Respiratory: Negative. Cardiovascular: Negative. Gastrointestinal: Negative. Endocrine: Negative. Genitourinary: Negative. Musculoskeletal: Negative. Skin: Negative. Allergic/Immunologic: Negative. Neurological: Negative. Hematological: Negative. Psychiatric/Behavioral: Negative. Objective: Physical Exam Constitutional: She is oriented to person, place, and time. She appears well- developed and well-nourished. HENT: Head: Normocephalic and atraumatic. Mouth/Throat: Oropharynx is clear and moist. Eyes: EOM are normal. Neck: Normal range of motion. Neck supple. Cardiovascular: Normal rate and regular rhythm. Pulmonary/Chest: Effort normal and breath sounds normal. Abdominal: Soft. Bowel sounds are normal. Musculoskeletal: Normal range of motion. Neurological: She is alert and oriented to person, place, and time. Skin: Skin is warm and dry. Psychiatric: She has a normal mood and affect. Her behavior is normal. Vitals: BP 147/82 (Patient Position: Sitting) Pulse 77 Temp 36.6 ??C (97.9 ??F) (Oral) Resp 18 Ht 154.9 cm (5' 1) Wt 87.3 kg (192 lb 6.4 oz) SpO2 98% BMI 36.35 kg/m?? 05/16/19 LABs: WBC 6.45, Hgb./Hct. 13.9/42.4, Plts 215, ANC 4.38. Chem: Na+/K+ 144/3.8, BUN/Creat. 19/0.8, AST 9, ALT 19, Alk. Phos. 70. Assessment and Plan: Nery Rueda is a 68 year old female with Breast cancer who presents today for chemotherapy teaching. The plan is for dose dense Adriamycin and Cytoxan given every 2 weeks for 4 cycles. The following information was reviewed with the patient and family. Antitumor Therapy Schedule: Doxorubicin (adriamycin) and Cyclophosphamide (cytoxan) every 2 weeks for 4 cycles Followed by Paclitaxel (taxol) every 2 weeks for 4 cycles Laboratory Tests: Prior to every cycle, we will have a complete metabolic panel (CMP) and complete blood count (CBC) with differential drawn Provider Visits: Nery will see either her physician or nurse practitioner prior to every cycle. Possible Side Effects include, but are not limited to: ??? Doxorubicin (Adriamycin): The most common potential side effects include: Decrease in blood counts (decrease in white blood cells, red blood cells and platelets, resulting in increased risk of infection, anemia and bleeding), nausea/vomiting, hair loss, temporary red discoloration of urine. Less common side effects include mouth sores, damage to the heart, secondary malignancies ??? Cyclophosphamide (Cytoxan): The most common potential side effects include: Hair loss, nausea/vomiting, diarrhea, decrease in blood counts, infertility, changes in skin or nails, and fatigue. Less common side effects include a risk of developing a blood cancer such as leukemia, bladder irritation with high doses and mucositis. ??? Paclitaxel (Taxol): The most common potential side effects include: Decrease in blood counts (decrease in white blood cells, red blood cells and platelets, resulting in increased risk of infection,anemia and bleeding), numbness and tingling in the hands and feet, infusion reactions, nausea/vomiting, hair loss, diarrhea. Less common side effects include rash, muscle aches. Medications: the following prescriptions should be picked up before starting treatment Use compazine and ativan for Josse Hull Arrick. Use compazine and dex for Noe. ??? Prochlorperazine (compazine) 1 tablet (10 mg) every 6-8 hours as needed ??? Lorazepam (ativan) 1 tablet (0.5 mg) every 4-6 hours as needed ??? Dexamethasone (decadron) 4 mg o Starting the day after chemotherapy: Take 2 mg (1/2 tablet) twice a day for 2 days, then take 2 mg(1/2 tablet) once a day for 2 days Plan: .ernesto was given written information regarding chemotherapy regimen, side effects and management strategies. Nery was given an opportunity to ask questions and verbalized understanding of the information and treatment plan. No barriers to learning were identified. Nery was counseled on how tocall for any further questions or concerns. ??? Chemotherapy is scheduled to begin on 05/16/19. ??? Testing/Diagnostics o Baseline blood work will be done on day 1 of cycle 1 o An echocardiogram was scheduled for 05/11/19 and revealed a LVEF of 60-65%. ??? Supportive Care: Antiemetics were reviewed with Nery and she understands how and when to take the medications prescribed ??? Advance Directives: A copy of the Advanced Directive was given to the patient. Will refer to social work to assist with completion ??? Psychosocial: ??? Distress Screening: Baseline assessment performed today. .distress ??? Follow up: Return to clinic on 05/30/19. More than 50% of this 50 minute face to face encounter was spent in counseling, education and coordination of care. 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
--- OUTSIDE RECORDS SUMMARY | 2022-06-18 00:30 | XMS_ITS | Encounter Summary ---
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, unspecified laterality Minor Gorman MD [facility] Hem Onc Office Procedures TC PALONOSETRON HCL, 25MCG, INJECTION (ALOXI) TC APREPITANT, 1 MG, INJECTION TC DOXORUBICIN HCL, 10MG, INJECTION (ADRIAMYCIN) TC CYCLOPHOSPHAMIDE, 100MG (CYTOXAN) TC PEGFILGRASTIM, 6MG, INJECTION [address] HEMATOLOGY/[place] [phone] Fax: Referral ID Status Reason Start Date Expiration Date Visits Requ ested Visits Authorized [id number] Closed 05/10/2019 12/13/2019 99 99 Encounter Details Date Type Department Care Team Description 05/16/2019 Infusion Hematology Oncology at [facility] 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, unspecified laterality; [facility] 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, unspecified laterality [address] [place] [phone] Social History Tobacco Use Types Packs/Day Years Used Date Never Smoker Smokeless Tobacco: Never Used Sex Assigned at Date Recorded Not on file documented as of this encounter Progress Notes Michelle Valverde RN - 05/16/2019 10:30 AM EDT INFUSION THERAPY ADMINISTRATION NOTES DIAGNOSIS: Breast Cancer CYCLE #:1 Day 1 REASON FOR VISIT: AC SUBJECTIVE Nery offers no complaints. OBJECTIVE LAB DATA: WBC 6.45, Hgb/HCT 13.9/42.4, PLT 215, ANC 4.38, BUN/Cr 19/0.81 IV ACCESS: Mediport accessed at [facility] for lab draw, blood return present and flushes easily. Pre administration: Chemotherapy orders independently verified for drug name, route, and dosage per patient's height, weight and BSA by Tavo Valverde RN & [facility] onsite. REACTIONS (DESCRIPTION, TIME, INTERVENTION AND EFFECTIVENESS) none ASSESSMENT Nery was awake, alert and tolerated treatment well. Pt. chemo teaching instructions included: During clinic hours (8am-5pm Tuesday-Tuesday): pt. can call [phone] with questions or concerns. After clinic hours (5pm-8am Tuesday-Tuesday and weekends) pt can call [phone] and ask for the flow manager/oncologist irrigation worker. Nery Rueda verbalized understanding of potential chemotherapy side effects and home care including but not limited to- handwashing to prevent infection, signs and symptoms of low blood counts (fever, fatigue, bleeding), to call with a fever of 100.4 or greater, any significant constipation/diarrhea, importance of nutrition and fluid intake (drinking at least 32-64 ounces of non-caffeinated beverages/day), mouth care. Nery Rueda verbalized understanding of how to take prescription medications given for home use after chemotherapy. PLAN Return to clinic per routine. documented [...] MAR Action Action Date Dose Rate Site aprepitant (CINVANTI) injection Given 05/16/2019 10:29 AM EDT 13 0 mg Emul 130 mg 130 mg, Intravenous, ONCE, 1 dose, On Tue05/16/19 at 1045, Alternative administration of IV push over 2 minutes is a recommendation from the lineman a class. Administer prior to chemotherapy., Routine cyclophosphamide (CYTOXAN) New Bag 05/16/2019 11:21 AM EDT 1,146 m g 614.6 mL/hr 1,146 mg in sodium chloride 0.9% 307.3 mL chemo infusion 1,146 mg (600 mg/m2/dose ? 1.91 m2 Treatment Plan BSA from Recorded weight), Intravenous, ONCE, 1 dose, On Tue05/16/19 at 1130, Administer over 30 Minutes, Warning Vesicant/Irritant Medication dexamethasone (DECADRON) tablet 10 mg Given 05/16/2019 10:28 AM EDT 10 mg 10 mg, Oral, ONCE, 1 dose, On Tue05/16/19 at 1045, Administer prior to chemotherapy, Routine DOXOrubicin (ADRIAMYCIN) chemo injection Given 05/16/2019 11 :11 AM EDT 114.6 mg 114.6 mg 114.6 mg (60 mg/m2/dose ? 1.91 m2 Treatment Plan BSA from Recorded weight), Intravenous, ONCE, 1 dose, On Tue05/16/19 at 1130, Administer each syringe over a minimum of 3 minutes per syringe. heparin, porcine 100 unit/mL flush 500 Given 05/16/2019 11:55 AM EDT 500 Units Units 500 Units, Intravenous, ONCE PRN, Starting on Tue05/16/19 at 1015, Until Tue05/16/19 at 1519, Line Care, Refer to Intravenous (IV) Procedure: Accessing Implanted Vascular Access Devices (424) procedure and/or Intravenous (IV) Job Aid: Adult Flushing & Catheter Care (5297) job aid for additional information regarding guidelines and administration., Routine LORazepam (ATIVAN) tablet 0.5 mg Given 05/16/2019 10:28 AM EDT 0.5 mg 0.5 mg, Oral, ONCE, 1 dose, On Tue05/16/19 at 1045, Administer prior to chemotherapy, Routine palonosetron (ALOXI) injection 0.25 mg Given 05/16/2019 10:29 AM EDT 0.25 mg 0.25 mg, Intravenous, ONCE, 1 dose, On Tue05/16/19 at 1045, Administer over 30 seconds. Administer prior to chemotherapy, Routine pegfilgrastim (NEULASTA ONPRO) Given 05/16/2019 11:22 AM EDT 6 m g Left Arm injection kit 6 mg, Subcutaneous, ONCE, 1 dose, On Tue05/16/19 at 1045, Allow the prefilled syringe co-packaged with the on-body injector to reach room temperature at least 30 minutes prior to administration., Routine sodium chloride 0.9 % (flush) flush 5-20 mL Given 05/16/2019 11:55 AM EDT 20 mLs 5-20 mL, Intravenous, EVERY 1 MIN PRN, Starting on Tue05/16/19 at 1015, Until Tue05/16/19 at 1519, Line Care, Flush pertains to all indwelling lines. Flush per protocol found in the job aid using the link provided on this medication record. Refer to Intravenous (IV) Job Aid: Adult Flushing & Catheter Care (0682) job aid for additional information regarding guidelines and administration., Routine documented in this encounter Care Teams Pipefitter Relationship Specialty Start Date End Date Mary Chinchilla APRN PCP - General Geriatric Medicine 04/24/[address] [place] [address] documented as of this encounter
--- OUTSIDE RECORDS SUMMARY | 2022-06-18 00:30 | XMS_ITS | Encounter Summary ---
:1950 Author Organization [facility] [place] [address] Care Team Providers Name Role Phone Mary Chinchilla APRN Primary Care Provider Encounter Details Date Type Department Care Team Description 05/16/2019 Orders Only [facility] [address] [place] [phone] Social History Tobacco Use Types Packs/Day Years Used Date Never Smoker Smokeless Tobacco: Never Used Sex Assigned at Date Recorded Not on file documented as of this encounter Plan of Treatment Not on filedocumented as of this encounter Visit Diagnoses Not on filedocumented in this encounter Care Teams Wraparound Facilitator Relationship Specialty Start Date End Date Mary Chinchilla APRN PCP - General Geriatric Medicine 04/24/19 [address] [place], [place] [id number] documented as of this encounter
--- OUTSIDE RECORDS SUMMARY | 2022-06-18 00:30 | XMS_ITS | Encounter Summary ---
:1950 [place] [address] Care Team Providers Name Role Phone Mary Chinchilla APRN Primary Care Provider Encounter Details Date Type Department Care Team Description 05/10/2019 Orders Only Hematology and Oncology at Minor Blanco MD [facility] [place] HEMATOLOGY/[place] [address] [place] [id number] [phone] (Wo rk) Social History Tobacco Use Types Packs/Day Years Used Date Never Smoker Smokeless Tobacco: Never Used Sex Assigned at Date Recorded Not on file documented as of this encounter Plan of Treatment Not on filedocumented as of this encounter Visit Diagnoses Not on filedocumented in this encounter Care Teams Trimming Department Blocker Relationship Specialty Start Date End Date Mary Chinchilla APRN PCP - General Geriatric Medicine 04/24/19 [address] [place] [address] documented as of this encounter
--- OUTSIDE RECORDS SUMMARY | 2022-06-18 00:30 | XMS_ITS | Encounter Summary ---
:1950 [place] [address] Care Team Providers Name Role Phone GaryMary Palomares NIC Primary Care Provider Encounter Details Date Type Department Care Team Description 05/08/2019 Office Visit Hematology/Oncology Minor Gorman Ho rmone receptor at [facility] positive malignant [address] [place] [address] neoplasm of right [place], [place] [address] [place] [phone] HEMATOLOGY/ONCOLOG [phone] [place] [id number] Social History Tobacco Use Types Packs/Day Years Used Date Never Smoker Smokeless Tobacco: Never Used Sex Assigned at Date Recorded Not on file documented as of this encounter Last Filed Vital Signs Vital Sign Reading Time Taken Comments Blood Pressure 160/73 05/08/2019 9:35 AM EDT Pulse 75 05/08/2019 9:35 AM EDT Temperature 36.4 ??C (97.5 ??F) 05/08/2019 9:35 AM EDT Respiratory Rate 18 05/08/2019 9:35 AM EDT Oxygen Saturation 99% 05/08/2019 9:35 AM EDT Inhaled Oxygen Concentration - - Weight 87.5 kg (192 lb 14.4 oz) 05/08/2019 9:35 AM EDT Height 149.9 cm (4' 11.02) 05/08/2019 9:35 AM EDT copi ed Body Mass Index 38.94 05/08/2019 9:35 AM EDT documented in this encounter Progress Notes Minor Gorman MD - 05/08/2019 9:30 AM EDT Diagnosis: R IDC 2 foci 24 mm and 10 mm, ER+/ND+ HER2 neg, Gr2, mrg neg, [id number] Subjective:I feel fine HPI: Oncology history -02/15/19 screening mammogram highly suspicious for malignancy - 02/21/19 right mammo and US hypoechoic 2.2 cm spiculated mass 9:00 5 cm from the nipple +3 hypoechoic spiculated masses in the right breast - 02/28/19 Dr. Dot Hull performed biopsy Pathology IDC, ER+ 90% ND 25-50%, HER2 IHC 0 -04/04/19 right breast mastectomy with sentinel lymph node biopsy Dr. Hull Interval history: Ms. Rueda is in clinic for follow-up appointment on breast cancer. Overall, she feels well. PMH: Osteoarthritis of right knee, glaucoma, hypertension, hyperlipidemia, [...] level: Not on file Occupational History ??? Not on file Social Needs ??? Financial resource strain: Not on file ??? Food insecurity: Worry: Not on file Inability: Not on file ??? Transportation needs: Medical: Not on file Non-medical: Not on file Tobacco Use ??? Smoking status: Never Smoker ??? Smokeless tobacco: Never Used Substance and Sexual Activity ??? Alcohol use: Not on file ??? Drug use: Not on file ??? Sexual activity: Not on file Lifestyle ??? Physical activity: Days per week: Not on file Minutes per session: Not on file ??? Stress: Not on file Relationships ??? Social connections: Talks on phone: Not on file Gets together: Not on file Attends religion service: Not on file Active member of [...] axillary nodes normal Neurologic: Normal Vitals BP 160/73 (Patient Position: Sitting) Pulse 75 Temp 36.4 ??C (97.5 ??F) (Oral) Resp 18 Ht 149.9 cm (4' 11.02) Comment: copied Wt 87.5 kg (192 lb 14.4 oz) SpO2 99% BMI 38.94 kg/m?? Pathology: 02/28/19 I - Outside slide(s) labeled [id number], collection date 02/28/2019. A - Needle biopsies: ??Right breast, 10 o'clock Diagnosis: ?Invasive ductal carcinoma Microcalcifications: ??N/A ER, ND, and HER2 studies (by report): ER: Positive (>90%, strong) ND: Positive (25%, moderate to strong) HER2 IHC: Negative (score 0) B - Needle biopsies: ??Right breast, 9 o'clock Diagnosis: ?Invasive ductal carcinoma Microcalcifications: ??N/A ER, ND, and HER2 studies (by report): ER: Positive (>90%, strong) ND: Positive (50%, moderate to strong) HER2 IHC: Negative (score 0) 04/04/19 A - Right breast, total mastectomy: - Invasive ductal carcinoma, two foci (see Synoptic Report and Discussion) - Ductal carcinoma in-situ - Fibrocystic changes B - [place] lymph node #1, excision: Two lymph nodes positive for metastatic carcinoma (2/2) Synoptic Report Specimen ?Procedure: ??Total mastectomy ?Specimen Laterality: ?? Right Tumor ?Histologic Type: ?? Invasive carcinoma of no special type (ductal, not ? otherwise specified) ?Histologic Grade (Taylor Histologic Score) ? Glandular (Acinar) / Tubular [...] ?? Negative for extensive intraductal ?component (EIC) [id number] ? Location: [facility] The signing pathologist has (i) examined the relevant preparation(s) for the specimen(s) and (ii) rendered or confirmed the diagnosis(es). . ? Surgical Pathology DIAGNOSIS CONSULTATION CASE I - Outside slide(s) labeled [id number], collection date 02/28/2019. A - Needle biopsies: ??Right breast, 10 o'clock Diagnosis: ?Invasive ductal carcinoma Microcalcifications: ??N/A ER, ND, and HER2 studies (by report): ER: Positive (>90%, strong) ND: Positive (25%, moderate to strong) HER2 IHC: Negative (score 0) B - Needle biopsies: ??Right breast, 9 o'clock Diagnosis: ?Invasive ductal carcinoma Microcalcifications: ??N/A ER, ND, and HER2 studies (by report): ER: Positive (>90%, strong) ND: Positive (50%, moderate to strong) HER2 IHC: Negative (score 0) II - Outside slide(s) labeled [id number], collection date 04/04/2019. A - Right breast, total mastectomy: - Invasive ductal carcinoma, two foci (see Synoptic Report and Discussion) - Ductal carcinoma in-situ - Fibrocystic changes B - [place] lymph node #1, excision: Two lymph nodes [...] ?? Cannot be determined ? Number of [place] Nodes Examined: ?2 Pathologic Stage Classification (pTNM, AJCC 8th Edition) ?TNM Descriptors: ?? m (multiple foci of invasive carcinoma) ?Primary Tumor (Invasive Carcinoma) (pT): ?pT2 ?Regional Lymph Nodes (pN) ? Modifier: ??(sn): Only sentinel node(s) evaluated. Category (pN): ?? pN1a Tumor Block(s): ?? A7 9 o'clock tumor; ??A10 10 o'clock tumor DISCUSSION The two foci of invasive carcinoma have similar morphology. Labs: 02/15/2019 BUN 23, creatinine 0.78, calcium 9.1 TSH 4.48, free T4 1.08 Imagin02/21/19 right mammo and US hypoechoic 2.2 cm spiculated mass 9:00 5 cm from the nipple +3 hypoechoicspiculated masses in the right breast Assessment and Plan: Diagnosis: R IDC 2 foci 24 mm and 10 mm, ER+/ND+ HER2 neg, Gr2, mrg neg, [id number] Treatment: - 04/04/19 right breast mastectomy with sentinel lymph node biopsy Dr. Hull We discussed prognosis of breast cancer. According to [employer] tool chemotherapy with dose dense AC-T and [...] 59.2% fewer cancer deaths after 15 years We discussed benefits and risk of chemotherapy with doxorubicin 60 mg/m?? and cyclophosphamide 600 mg/m?? every 2 weeks for total of 4 cycles in dose dense fashion. Risks include but not limited to nausea, vomiting, fatigue, hair loss, cardiac failure, low blood counts, allergic reaction, secondary malignancy including leukemia and . All questions were answered to patient's satisfaction. She is interested to proceed with chemotherapy. Informed verbal consent was obtained. Plan: 1. Echocardiogram 2. MediPort placement 3. Start chemotherapy dd AC on May 15 4. Radiation oncology consult The plan was discussed with the patient in details. All questions were answered to patient's satisfaction. I would like to thank Dr. Hull and Mary Chinchilla for allowing me to participate in the care of this wonderful lady documented in this encounter Plan of Treatment Not on filedocumented as of this encounter Procedures Procedure Name Priority Date/Time Associated Comments Diagnosis IMPLANTABLE DEVICES 05/15/2019 12:00 Resu lts for this SCAN AM EDT procedure are i n the results section. ECHO SCAN (SCAN) 05/11/2019 12:00 Results for this AM EDT procedure are i n the results section. documented in this encounter Results SCAN DOC: IMPLANTABLE DEVICES (05/15/2019 12:00 AM EDT) Narrative 05/15/2019 12:00 AM EDT This result has an attachment that is no t available. Ordered by an unspecified provider. Scanning Provider MEDIA MGR SCAN EXT ORDR/RSLT SCAN DOC: ECHO (05/11/2019 12:00 AM EDT) Narrative 05/11/2019 12:00 AM EDT This result has an attachment that is no t available. Ordered by an unspecified provider. Scanning Provider MEDIA MGR SCAN EXT ORDR/RSLT documented in this encounter Visit Diagnoses Diagnosis Hormone receptor positive malignant neop lasm of right breast documented in this encounter Care Teams Reception Manager Relationship Specialty Start Date End Date Mary Chinchilla APRN PCP - General Geriatric Medicine 04/24/[address] [place] [address] documented as of this encounter
--- OUTSIDE RECORDS SUMMARY | 2022-06-18 00:30 | XMS_ITS | Encounter Summary ---
:1950 Author Organization [place] [address] Care Team Providers Name Role Phone Mary Chinchilla APRN Primary Care Provider Encounter Details Date Type Department Care Team Description 06/12/2019 Office Visit Hematology/Oncology Soni Amaro east cancer at [facility] NIC Cooper metastasized to [facility] [address] [place] [address] axillary lymph node, [place], [place] unspeci fied laterality [phone] Social History Tobacco Use Types Packs/Day Years Used Date Never Smoker Smokeless Tobacco: Never Used Alcohol Use Standard Drinks/Week Comments Not Currently 0 (1 standard drink = 0.6 oz pure alcoho l) Sex Assigned at Date Recorded Not on file documented as of this encounter Last Filed Vital Signs Vital Sign Reading Time Taken Comments Blood Pressure 155/73 06/12/2019 10:51 AM EDT Pulse 86 06/12/2019 10:51 AM EDT Temperature 36.5 ??C (97.7 ??F) 06/12/2019 10:51 AM EDT Respiratory Rate 18 06/12/2019 10:51 AM EDT Oxygen Saturation 99% 06/12/2019 10:51 AM EDT Inhaled Oxygen Concentration - - Weight 87.1 kg (192 lb) 06/12/2019 10:51 AM EDT Height 154.9 cm (5' 0.98) 06/12/2019 10:51 AM EDT Body Mass Index 36.3 06/12/2019 10:51 AM EDT documented in this encounter Progress Notes Soni Amaro APRN - 06/12/2019 11:00 AM EDT Subjective: Patient ID: Nery Rueda is a 69 y.o. female. Diagnosis: R IDC 2 foci 24 mm and 10 mm, ER+/MI+ HER2 neg, Gr2, mrg neg, [id number] HPI: Oncology history -02/15/19 screening mammogram highly suspicious for malignancy - 02/21/19 right mammo and US hypoechoic 2.2 cm spiculated mass 9:00 5 cm from the nipple +3 hypoechoic spiculated masses in the right breast - 02/28/19 Dr. Dot Hull performed biopsy Pathology IDC, ER+ 90% MI 25-50%, HER2 IHC 0 -04/04/19 right breast mastectomy with sentinel lymph node biopsy Dr. Hull Interval History: Ms. Rueda is in clinic for follow-up appointment on breast cancer. She is currently being treated with dose-dense Adriamycin and Cytoxan. Today she is due for day 1, cycle #3. She reports feeling fatigued but continues to work. She brought in some [facility] paperwork she needs us to complete. She may haveto take time off. Her appetite has decreased and she is losing some hair. She would like to look at some of our wigs today. Her port site is a little red, but not angry looking. I advise her to keep itopen to air for now and to let us know it if get worse. She denies pain, fever, chills, night sweatsor unusual bleeding. PMH, PSH, FH, and SH: Except as mentioned in the interim history, unchanged from last office visit. Review of Systems Constitutional: Positive for appetite change and fatigue. HENT: Negative. Eyes: Negative. Respiratory: Negative. Cardiovascular: Negative. Gastrointestinal: Negative. Endocrine: Negative. Genitourinary: Negative. Musculoskeletal: Negative. Skin: Negative. Allergic/Immunologic: Negative. Neurological: Negative. Hematological: Negative. Psychiatric/Behavioral: Negative. Objective: Physical Exam Constitutional: She appears well-developed and well-nourished. HENT: Head: Normocephalic and atraumatic. Nose: Nose normal. Mouth/Throat: Oropharynx is clear and moist. Eyes: Conjunctivae and EOM are normal. Neck: Normal range of motion. Neck supple. Cardiovascular: Normal rate. Pulmonary/Chest: Effort normal and breath sounds normal. Abdominal: Soft. Bowel sounds are normal. Musculoskeletal: Normal range of motion. Skin: Skin is warm and dry. Psychiatric: She has a normal mood and affect. Her behavior is normal. Thought content normal. Vitals reviewed. Vitals: BP 155/73 (Patient Position: Sitting) Pulse 86 Temp 36.5 ??C (97.7 ??F) (Oral) Resp 18 Ht 154.9 cm (5' 0.98) Wt 87.1 kg (192 lb) SpO2 99% BMI 36.30 kg/m?? 06/12/19 LABs: WBC 10.52, Hgb./Hct. 11.3/33.8, Plts. 242, ANC 8.42H. Chem: Na+/K+ 141/3.4, BUN 17/0.69, AST 13, ALT 18, Alk. Phos. 86, Alb 3.1. Assessment and Plan: 1. Breast cancer. Currently being treated with dose-dense Adriamycin and Cytoxan. 2. Reviewed lab results with patient. Proceed with day 1, cycle #3 today. 3. RTC in 2 weeks for labs and toxicity assessment prior to day 1, cycle#4. Soni Amaro, MSN, NDT INSPECTOR, AOCNP documented in this encounter Plan of Treatment Not on filedocumented as of this encounter Visit Diagnoses Diagnosis Breast cancer metastasized to axillary l ymph node, unspecified laterality documented in this encounter Care Teams Customer Care Specialist Relationship Specialty Start Date End Date Mary Chinchilla APRN PCP - General Geriatric Medicine 04/24/[address] [place] [address] documented as of this encounter
--- OUTSIDE RECORDS SUMMARY | 2022-06-18 00:30 | XMS_ITS | Encounter Summary ---
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 Iwona Martins MD HEMATOLOGY/ONCOLOGY [address] [place], [place] [id number] [place] [address] Phone: Fax: Referral ID Status Reason Start Date Expiration Date Visits V isits Requested Authorized [id number] Consult, 04/24/2019 10/21/2019 1 1 Test & Treat Non PCP Reason for Visit Consultation (Urgent) - Specialty Diagnoses / Procedures Referred By Contact Refer red To Contact Hematology and Oncology Diagnoses Metastatic breast cancer METASTATIC BREAST CANCER Della [facility] Hem Onc Office Procedures METASTATIC BREAST CANCER Nikos Martins MD [address] [place] [address] [address] [place] [id number] Referral ID Status Reason Start Date Expiration Date Visits V isits Requested Authorized [id number] Consult, Test 04/13/2019 10/13/2019 6 6 & Treat PCP Updated and/or Approved Encounter Details Date Type Department Care Team Description 04/24/2019 Office Visit Hematology/Oncology Minor Caceres Ho rmone receptor positive malignant neoplasm of right breast (Primary Dx); at [facility] High risk medication use [address] [place] [phone] HEMATOLOGY/ONCOLOG [phone] [place], [place] [address] Social History Tobacco Use Types Packs/Day Years Used Date Never Smoker Smokeless Tobacco: Never Used Sex Assigned at Date Recorded Not on file documented as of this encounter Last Filed Vital Signs Vital Sign Reading Time Taken Comments Blood Pressure 153/66 04/24/2019 4:20 PM EDT Pulse 74 04/24/2019 4:20 PM EDT Temperature 37 ??C (98.6 ??F) 04/24/2019 4:20 PM EDT Respiratory Rate 16 04/24/2019 4:20 PM EDT Oxygen Saturation 96% 04/24/2019 4:20 PM EDT Inhaled Oxygen Concentration - - Weight 87.1 kg (192 lb) 04/24/2019 4:20 PM EDT Height 149.9 cm (4' 11) 04/24/2019 4:20 PM EDT Body Mass Index 38.78 04/24/2019 4:20 PM EDT documented in this encounter Progress Notes Jewels Izaguirre RN - 04/24/2019 4:00 PM EDT MEDICAL ONCOLOGY INITIAL NURSING ASSESSMENT ADVANCE DIRECTIVES: In [facility] [ ] Has documents [x ] Will bring in [ x ] IF NO: Advance Directive pamphlet provided : Referral to Care Management : PRESENTING SYSTEMS and PATHOLOGY: had mammogram REVIEW OF SYSTEMS: see Sherif's note Prior Radiotherapy: no[ x ] Yes[ ]Site Date Facility Prior Chemotherapy: no[ x ] Yes[ ] Drug: Oncologist- LastTreatment: Balance difficulty: [ x ]no [ ]yes At risk for fall: [x ] no [ ] yes If yes, actions implemented to prevent fall. Patient/family instructed to avoid independent ambulation. Use wheelchair and ask for assistance of staff while in the clinic. ADL [x ] no limits [ ] needs dressing assistance [ ] needs meal assistance Assistive device:[ x ]none [ ]cane [ ]walker [ ]wheelchair [ ]other: explain PAIN ASSESSMENT: [0 ] out of 10 Location: Description: [ ] Dull [ ] Sharp [ ] Burning [ ] Throbbing [ ] Radiating [ ] Continuous [ ]Intermittent Aggravating Factors: [ ] Movement [ ] Position [ ]Immobility [ ]Other Alleviating Factors: [ ]Medication [ ] Positioning [ ] Other Current Pain Management Plan: [ ]Satisfied [ ] Not satisfied SOCIAL ASSESSMENT: See ED[facility] social assessment information entered. Support Systems: [place], two daughters and son in area transportation plan: [x ]private vehicle [ ] RCT needs Social Work referral [ ] Unknown at this time needs Social Work referral Barriers to treatment: none at this time Referrals/Interventions: LEARNING STYLE: Visual and verbal, wants written material and verbal discussion. TEACHING: __ [facility] ???Chemotherapy and You?? and folder given __ Specific chemotherapy literature provided and reviewed with patient Minor Caceres MD - 04/24/2019 4:00 PM EDT Diagnosis: Breast cancer Subjective:I feel fine HPI: Oncology history -02/15/19 screening mammogram highly suspicious for malignancy - 02/21/19 right mammo and US hypoechoic 2.2 cm spiculated mass 9:00 5 cm from the nipple +3 hypoechoic spiculated masses in the right breast - 02/28/19 Dr. Dot Hull performed biopsy Pathology IDC, ER+ 90% FL 25-50%, HER2 IHC 0 -04/04/19 right breast mastectomy with sentinel lymph node biopsy Dr. Hull PMH: Osteoarthritis of right knee, glaucoma, hypertension, [...] file Gets together: Not on file Attends buddhism service: Not on file Active member of [...] axillary nodes normal Neurologic: Normal Vitals BP 153/66 (Patient Position: Sitting) Pulse 74 Temp 37 ??C (98.6 ??F) (Oral) Resp 16 Ht 149.9 cm (4' 11) Wt 87.1 kg (192 lb) SpO2 96% BMI 38.78 kg/m?? Pathology: 02/28/19 I - Outside slide(s) labeled [id number], collection date 02/28/2019. A - Needle biopsies: ??Right breast, 10 o'clock Diagnosis: ?Invasive ductal carcinoma Microcalcifications: ??N/A ER, FL, and HER2 studies (by report): ER: Positive (>90%, strong) FL: Positive (25%, moderate to strong) HER2 IHC: Negative (score 0) B - Needle biopsies: ??Right breast, 9 o'clock Diagnosis: ?Invasive ductal carcinoma Microcalcifications: ??N/A ER, FL, and HER2 studies (by report): ER: Positive (>90%, strong) FL: Positive (50%, moderate to strong) HER2 IHC: Negative (score 0) 04/04/19 A - Right breast, total mastectomy: - Invasive ductal carcinoma, two foci (see Synoptic Report and Discussion) - Ductal carcinoma in-situ - Fibrocystic changes B - [place] lymph node #1, excision: Two lymph nodes positive for metastatic carcinoma (2/2) Synoptic Report Specimen ?Procedure: ??Total mastectomy ?Specimen Laterality: ?? Right Tumor ?Histologic Type: ?? Invasive carcinoma of no special type (ductal, not ? otherwise specified) ?Histologic Grade (Beaver Histologic Score) ? Glandular (Acinar) / Tubular [...] ?? Negative for extensive intraductal ?component (EIC) [id number] ? Location: [facility] The signing pathologist has (i) examined the relevant preparation(s) for the specimen(s) and (ii) rendered or confirmed the diagnosis(es). . ? Surgical Pathology DIAGNOSIS CONSULTATION CASE I - Outside slide(s) labeled [id number], collection date 02/28/2019. A - Needle biopsies: ??Right breast, 10 o'clock Diagnosis: ?Invasive ductal carcinoma Microcalcifications: ??N/A ER, FL, and HER2 studies (by report): ER: Positive (>90%, strong) FL: Positive (25%, moderate to strong) HER2 IHC: Negative (score 0) B - Needle biopsies: ??Right breast, 9 o'clock Diagnosis: ?Invasive ductal carcinoma Microcalcifications: ??N/A ER, FL, and HER2 studies (by report): ER: Positive (>90%, strong) FL: Positive (50%, moderate to strong) HER2 IHC: Negative (score 0) II - Outside slide(s) labeled [id number], collection date 04/04/2019. A - Right breast, total mastectomy: - Invasive ductal carcinoma, two foci (see Synoptic Report and Discussion) - Ductal carcinoma in-situ - Fibrocystic changes B - [place] lymph node #1, excision: Two lymph nodes [...] ?? Cannot be determined ? Number of [place] Nodes Examined: ?2 Pathologic Stage Classification (pTNM, [...] 2 foci 24 mm and 10 mm, ER+/FL+ HER2 neg, Gr2, mrg neg, [id number] Treatment: - 04/04/19 right breast mastectomy with sentinel lymph node biopsy Dr. Hull We discussed prognosis of breast cancer. According to [employer] tool chemotherapy with dose dense AC-T and [...] Informed verbal consent was obtained. Plan: 1. Echocardiom 2. MediPort placement 3. Start chemotherapy ddAC 4. Radiation oncology consult The plan was discussed with the patient in details. All questions were answered to patient's satisfaction. I would like to thank Dr. Hull and Mary Chinchilla for allowing me to participate in the care of this wonderful lady documented in this encounter Miscellaneous Notes Addendum Note - Minor Caceres MD - 04/24/2019 4:00 PM EDT Addended by: MINOR CACERES on: 05/08/2019 10:27 AM Modules accepted: Orders documented in this encounter Plan of Treatment Scheduled Referrals Name Type Priority Associated Diagnoses Order S chedule Referral to General Outpatient Referral Routine Hormone recept or Ordered: Surgery positive malignant 9 neoplasm of right breast Referral to Outpatient Referral Routine Hormone receptor Orde red: Radiation Oncology positive malignant neoplasm of right breast documented as of this encounter Visit Diagnoses Diagnosis Hormone receptor positive malignant neop lasm of right breast - Primary High risk medication use Encounter for long-term (current) use of other medications documented in this encounter Care Teams Java Xml Developer Relationship Specialty Start Date End Date Mary Chinchilla APRN PCP - General Geriatric Medicine 04/24/[address] [place] [address] documented as of this encounter
--- OUTSIDE RECORDS SUMMARY | 2022-06-18 00:30 | XMS_ITS | Encounter Summary ---
:1950 [place] [address] Care Team Providers Name Role Phone Nery Macedo APRN Primary Care Provider [phone] Encounter Details Date Type Department Care Team Description 03/04/2016 Ancillary Procedure Radiology Library at [facility] [place] [address] HEMATOLOGY/ONCOLOGY [phone] [place], [place] [address] (Wo rk) Social History Tobacco Use Types Packs/Day Years Used Date Never Assessed Sex Assigned at Date Recorded Not on file documented as of this encounter Plan of Treatment Not on filedocumented as of this encounter Procedures Procedure Name Priority Date/Time Associated Diagnosis Comme nts FILM Routine 03/04/2016 12:00 AM Results for this LIBRARY-STORAGE EDT procedure ar e in ONLY US BREAST the results section. documented in this encounter Results Film Library Storage Only US Breast (03/04/2016 12:00 AM EDT) Specimen (Source) Anatomical Location Collection Method / Collectio n Time Received Time / Laterality Volume Narrative RAD - 04/19/2019 1:51 PM EDT This exam is auto-finalizing. It's purpo se is for storage only. Minor Gorman MD G FILM LIBRARY ORDERABLES Performing Organization Address City/State/ZIP Code Phon e Number [place], [place] documented in this encounter Visit Diagnoses Not on filedocumented in this encounter Care Teams S Iron Worker Relationship Specialty Start Date End Date Nery Macedo APRN PCP - General 10/06/10 04/23/[address] [place] [address] documented as of this encounter
--- OUTSIDE RECORDS SUMMARY | 2022-06-18 00:30 | XMS_ITS | Encounter Summary ---
:1950 [place] [address] Care Team Providers Name Role Phone Nery Macedo APRN Primary Care Provider [phone] Encounter Details Date Type Department Care Team Description 02/21/2019 Ancillary Procedure Radiology Library at [facility] [place] [address] HEMATOLOGY/ONCOLOGY [phone] [place], [place] [address] (Wo rk) Social History Tobacco Use Types Packs/Day Years Used Date Never Assessed Sex Assigned at Date Recorded Not on file documented as of this encounter Plan of Treatment Not on filedocumented as of this encounter Procedures Procedure Name Priority Date/Time Associated Diagnosis Comme nts FILM Routine 02/21/2019 12:00 AM Results for this LIBRARY-STORAGE EDT procedure ar e in ONLY US BREAST the results section. documented in this encounter Results Film Library Storage Only US Breast (02/21/2019 12:00 AM EDT) Specimen (Source) Anatomical Location Collection Method / Collectio n Time Received Time / Laterality Volume Narrative RAD - 04/19/2019 1:40 PM EDT This exam is auto-finalizing. It's purpo se is for storage only. Minor Gorman MD G FILM LIBRARY ORDERABLES Performing Organization Address City/State/ZIP Code Phon e Number [place], [place] documented in this encounter Visit Diagnoses Not on filedocumented in this encounter Care Teams Emergency Room Physician Assistant Relationship Specialty Start Date End Date Nery Macedo APRN PCP - General 10/06/10 04/23/[address] [place] [address] documented as of this encounter
--- OUTSIDE RECORDS SUMMARY | 2022-06-18 00:30 | XMS_ITS | Encounter Summary ---
:1950 [place] [address] Care Team Providers Name Role Phone Nery Macedo APRN Primary Care Provider [phone] Encounter Details Date Type Department Care Team Description 02/11/2015 Ancillary Procedure Radiology Library at [facility] [place] [place] [address] HEMATOLOGY/ONCOLOGY [phone] [place], [place] [address] (Wo rk) Social History Tobacco Use Types Packs/Day Years Used Date Never Assessed Sex Assigned at Date Recorded Not on file documented as of this encounter Plan of Treatment Not on filedocumented as of this encounter Procedures Procedure Name Priority Date/Time Associated Diagnosis Comme nts FILM LIBRARY Routine 02/11/2015 12:00 AM Results for this STORAGE ONLY MAMMO EDT procedure are in the results section. documented in this encounter Results Film Library- Storage Only Mammo (02/11/2015 12:00 AM EDT) Specimen (Source) Anatomical Location Collection Method / Collectio n Time Received Time / Laterality Volume Narrative RAD - 04/19/2019 1:48 PM EDT This exam is auto-finalizing. It's purpo se is for storage only. Minor Gorman MD Noé FILM LIBRARY ORDERABLES Performing Organization Address City/State/ZIP Code Phon e Number RAD [place], [place] documented in this encounter Visit Diagnoses Not on filedocumented in this encounter Care Teams Flat Machine Cutter Relationship Specialty Start Date End Date Nery Macedo APRN PCP - General 10/06/10 04/23/[address] [place] [address] documented as of this encounter
--- OUTSIDE RECORDS SUMMARY | 2022-06-18 00:30 | XMS_ITS | Encounter Summary ---
:1950 [place] [address] Care Team Providers Name Role Phone Nery Macedo APRN Primary Care Provider [phone] Encounter Details Date Type Department Care Team Description 03/04/2016 Ancillary Procedure Radiology Library at [facility] [place] [address] HEMATOLOGY/ONCOLOGY [phone] [place], [place] [address] (Wo rk) Social History Tobacco Use Types Packs/Day Years Used Date Never Assessed Sex Assigned at Date Recorded Not on file documented as of this encounter Plan of Treatment Not on filedocumented as of this encounter Procedures Procedure Name Priority Date/Time Associated Diagnosis Comme nts FILM LIBRARY Routine 03/04/2016 12:05 AM Results for this STORAGE ONLY MAMMO EDT procedure are in the results section. documented in this encounter Results Film Library- Storage Only Mammo (03/04/2016 12:05 AM EDT) Specimen (Source) Anatomical Location Collection Method / Collectio n Time Received Time / Laterality Volume Narrative RAD - 04/19/2019 1:53 PM EDT This exam is auto-finalizing. It's purpo se is for storage only. Minor Gorman MD Noé FILM LIBRARY ORDERABLES Performing Organization Address City/State/ZIP Code Phon e Number RAD [place], [place] documented in this encounter Visit Diagnoses Not on filedocumented in this encounter Care Teams Road Monkey Relationship Specialty Start Date End Date Nery Macedo APRN PCP - General 10/06/10 04/23/[address] [place] [address] documented as of this encounter
--- OUTSIDE RECORDS SUMMARY | 2022-06-18 00:30 | XMS_ITS | Encounter Summary ---
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 Minor Gorman MD [facility] Rad Onc Treatment [facility] D R [address] [place] [address] HEMATOLOGY/[place] [phone] Fax: Referral ID Status Reason Start Date Expiration Date Visits V isits Requested Authorized [id number] Closed Consult, 05/08/2019 05/07/2020 1 1 Test & Treat Encounter Details Date Type Department Care Team Description 06/04/2019 [facility] upper-outer quadrant [address] [place] [address] DR of right female [place], [place] RADIATION ONCOL OGY breast, unspecified [phone] [place] [address] estrogen receptor [phone] status (Work) Social History Tobacco Use Types Packs/Day Years Used Date Never Smoker Smokeless Tobacco: Never Used Alcohol Use Standard Drinks/Week Comments Not Currently 0 (1 standard drink = 0.6 oz pure alcoho l) Sex Assigned at Date Recorded Not on file documented as of this encounter Last Filed Vital Signs Vital Sign Reading Time Taken Comments Blood Pressure 141/70 06/04/2019 10:05 AM EDT Pulse 80 06/04/2019 10:05 AM EDT Temperature 36.9 ??C (98.4 ??F) 06/04/2019 10:05 AM EDT Respiratory Rate 16 06/04/2019 10:05 AM EDT Oxygen Saturation 98% 06/04/2019 10:05 AM EDT Inhaled Oxygen Concentration - - Weight 87.2 kg (192 lb 3.2 oz) 06/04/2019 10:05 AM with shoes EDT Height - - Body Mass Index 36.32 05/29/2019 10:45 AM EDT documented in this encounter Progress Notes Kenyetta Rosales RN - 06/04/2019 10:00 AM EDT RADIATION ONCOLOGY NURSING INITIAL NURSING ASSESSMENT IDENTIFICATION: Nery Rueda is a 68 y.o. year-old female with newly diagnosed right breast cancer. PRESENTING SYMPTOMS/CHIEF COMPLAINT: Abnormal screening mammogram. REVIEW OF SYSTEMS: Review of Systems Skin: Positive for wound (right breast healing wound). Neurological: Positive for light-headedness. Negative for headaches. IN THE PAST 12 MONTHS HAVE YOU: Fallen more than one time? no Injured yourself as result of the fall? N/A Experienced difficulty with walking/problems with balance? no Do you use any assistive devices? No Any history of collagen vascular diseases:No Any Implanted Devices/Hardware: Implanated port left chestwall If yes please put alert in ARIA patient summary Prior Radiotherapy: No Prior Chemotherapy: Yes ddAC 05/29/19 Prior Hormone Therapy: No LEARNING ASSESSMENT REVIEWED: Yes ADVANCED DIRECTIVE: Not addressed this encounter. PAIN ASSESSMENT: 5 out of 10 Left neck *eD-H Adult PCS Flow Sheet if 4 or above SOCIAL ASSESSMENT: See EDH social assessment information entered. 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 Would like treatments prior to or after work. Referrals/Interventions: FIRE SPRINKLER APPARATUS INSPECTOR RADIATION SPECIFIC TEACHING: [facility] Radiation Therapy and You Site specific teaching : To be done by nursing on day of simulation. Other: PLAN: Per Dr. Rae Chantelle Rae MD - 06/04/2019 10:00 AM EDT Images from the original note were not included. CC: Referred by Dr. Gorman for eval for xrt for breast ca. HPI: 68 y/o f who presented w/R breast abnlty on screening mmg. 02/15/19 screening B mmg: Spiculated nodularity central R breast. 02/21/19 dx'ic R mmg & R breast US: Spiculated 2.2 cm mass @ 9:00, 5 cm from nipple with 3 smaller lesions in UOQ. 02/28/19 US guided needle core bx R breast @ 10:00 & 9:00. Path: A - R breast, 10:00: IDC, ER+IL+, Her2 neg. B - R breast, 9:00: IDC, ER+IL+, Her2 neg. 04/04/19 R mastectomy & SNB. Path: IDC, 2 foci, 10 mm & 24 mm, gr 2, RM neg, 2 sentinel lymph nodes, both involved by macromets, largest met 17 mm, pT2 pN1a. 05/16/19 started dd AC-T. ROS: L sided neck pain, which she localizes to the SCM & tail of parotid area, level 6 (1-10 pain scale), decreased to level 1-2 w/400 mg ibuprofen. No numbness/tingling/weakness. No hand/arm swelling. ROM arms around shoulders good. Appetite & energy level decreased. Energy level 60% nl. No past medical history on file. OA R knee, glaucoma, htn, hyperlipidemia, subclinical hypothyroidism. No scleroderma/lupus. No prior xrt. No past surgical history on file. Appy, tubal ligation. Your Medications Accurate as of 06/04/19 10:24 AM. If you have any questions, ask your nurse or doctor. Continued medications, unchanged Dose Details bimatoprost 0.01 % Drop Commonly known as: LUMIGAN Apply 1 drop to eye nightly. Both eyes 1 drop Refills: 0 COMBIGAN 0.2-0.5 % Drop Apply 1 drop to eye daily. Generic drug: Brimonidine-Timolol 1 drop Refills: 0 dexamethasone 4 mg Tab Commonly known as: DECADRON Starting day after chemo take half tab twice a day for two days then half tab once a day for two days. Quantity: 20 tablet Refills: 1 glucosamine sulfate 500 mg Tab Take 1 tablet by mouth daily. 1 tablet Refills: 0 hydroCHLOROthiazide 12.5 mg Tab Commonly known as: HYDRODIURIL Take 12.5 mg by mouth daily. 12.5 mg Refills: 0 ibuprofen 600 mg Tab Commonly known as: ADVIL;MOTRIN Take 600 mg by mouth daily as needed. 600 mg Refills: 4 LORazepam 0.5 mg Tab Commonly known as: ATIVAN Take 1 tablet by mouth every 6 hours as needed for Anxiety (nausea). 0.5 mg Quantity: 15 tablet Refills: 0 potassium chloride 10 mEq Tbsr Commonly known as: K-DUR/KLOR-CON Take 1 tablet by mouth 2 times daily for 14 days. 10 mEq Quantity: 14 tablet Refills: 0 prochlorperazine 10 mg Tab Commonly known as: COMPAZINE Take 1 tablet by mouth every 6 hours as needed for Nausea. 10 mg Quantity: 30 tablet Refills: 3 Physical Exam Constitutional: She is oriented to person, place, and time. She appears well- developed and well-nourished. No distress. BP 141/70 (Patient Position: Sitting) Pulse 80 Temp 36.9 ??C (98.4 ??F) (Oral) Resp 16 Wt 87.2 kg (192 lb 3.2 oz) Comment: with shoes SpO2 98% BMI 36.32 kg/m?? HENT: Head: Normocephalic and atraumatic. Eyes: Conjunctivae and EOM are normal. Right eye exhibits no discharge. Left eye exhibits no discharge. No scleral icterus. Neck: Normal range of motion. Neck supple. No tracheal deviation present. No thyromegaly present. Pulmonary/Chest: Effort normal. No stridor. No respiratory distress. Left breast exhibits no inverted nipple, no mass (L infraclav port.), no nipple discharge, no skin change and no tenderness. Abdominal: Soft. She exhibits no distension and no mass. There is no tenderness. There is no reboundand no guarding. Musculoskeletal: Normal range of motion. She exhibits no edema or tenderness. Lymphadenopathy: Head (right side): No submental, no submandibular, no preauricular, no posterior auricular and no occipital adenopathy present. Head (left side): No submental, no submandibular, no preauricular, no posterior auricular and no occipital adenopathy present. She has no cervical adenopathy. She has no axillary adenopathy. Right: No supraclavicular adenopathy present. Left: No supraclavicular adenopathy present. Neurological: She is alert and oriented to person, place, and time. No cranial nerve deficit. She exhibits normal muscle tone. Coordination normal. Skin: Skin is warm and dry. She is not diaphoretic. Psychiatric: She has a normal mood and affect. Her behavior is normal. Judgment and thought content normal. A: Breast ca, R, IDC, 2 foci, 24 mm & 10 mm, gr 2, ER+IL+, Her2 neg & ER+IL+, Her2 neg, s/p mastectomy & SNB, mpT2 pN1. P: Xrt to R chest wall & draining lymphatics rec'd to increase likelihood of ca control. Xrt would be given in 30 fxs & would start after chemo completion. Possible side effects of xrt discussed, w/acute/immediate side effects including: Pinkening, soreness & peeling of skin in treated area; swelling of treated area; soreness of treated area; cough; shortness of breath; sore throat; sense of fullness in throat; swelling of R hand/arm, which could be permanent; numbness, tingling, weakness & difficulty coordinating R hand/arm; tiredness. To decrease risk of lymphedema, she was instructed to avoid bp measurement on R upper extremity, avoid needle sticks on R upper extremity, avoid lifting too heavy of objects with R upper extremity & to contact her physician if upper extremity turns pink or starts to swell. Late/rn long term care side effects of xrt discussed include: Treated soft tissue in treated area may tighten, become firmer & sit higher; achiness/stiffness of chest wall on treated side; R sided rib fracture; CT after xrt may show scarring w/in small volume of lung on treated side; permanent swelling ofR hand/arm; small risk of irradiation associated 2nd malignancy. Need for CTsim prior to xrt discussed. She would like to proceed w/plan for xrt & as she nears chemo completion, CTsim will be sched'd. Plain xray of neck rec'd for eval of neck pain; given requisition. 25 mins of 40 min face to face visit w/Nery spent discussing rationale for xrt; hoped for benefit of xrt; possible side effects/complications of xrt; prevention/management of side effects/complications of xrt; logistics of daily xrt; timing of xrt vis a vis chemo; CTsimulation; arm position requiredfor xrt; followup after completion of xrt. Radiation damian:Post mastectomy Radiation boost:Yes Total dose of radiation: 60 Gy documented in this encounter Plan of Treatment Not on filedocumented as of this encounter Visit Diagnoses Diagnosis Malignant neoplasm of upper-outer quadra nt of right female breast, unspecified estrogen receptor status documented in this encounter Care Teams Fire Equipment Inspector Helper Relationship Specialty Start Date End Date Mary Chinchilla APRN PCP - General Geriatric Medicine 04/24/[address] [place] [address] documented as of this encounter
--- OUTSIDE RECORDS SUMMARY | 2022-06-18 00:30 | XMS_ITS | Encounter Summary ---
:1950 Author Organization [facility] Address [address] [place] [address] Care Team Providers Name Role Phone Mary Chinchilla APRN Primary Care Provider Reason for Visit Reason Comments Follow-up Encounter Details Date Type Department Care Team Description 07/03/2019 Office Visit Hematology/Oncology Devijaxy, Breast c ancer 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, unspecified laterality; at [facility] MD Minor Hormone receptor positive malignant neop lasm of breast, unspecified laterality; [address] [place] [address] [facility] Encounter for antineoplastic chemotherapy [place], [place] CENTER [address] HEMATOLOGY/ONCOLO [phone] [place], [place] [address] Social History Tobacco Use Types Packs/Day Years Used Date Never Smoker Smokeless Tobacco: Never Used Alcohol Use Standard Drinks/Week Comments Not Currently 0 (1 standard drink = 0.6 oz pure alcoho l) Sex Assigned at Date Recorded Not on file documented as of this encounter Last Filed Vital Signs Vital Sign Reading Time Taken Comments Blood Pressure 155/80 07/03/2019 1:35 PM EDT Pulse 102 07/03/2019 1:35 PM EDT Temperature 36.7 ??C (98.1 ??F) 07/03/2019 1:35 PM EDT Respiratory Rate 16 07/03/2019 1:35 PM EDT Oxygen Saturation 97% 07/03/2019 1:35 PM EDT Inhaled Oxygen Concentration - - Weight 87.1 kg (192 lb) 07/03/2019 1:35 PM EDT Height 154.9 cm (5' 0.98) 07/03/2019 1:35 PM EDT Body Mass Index 36.3 07/03/2019 1:35 PM EDT documented in this encounter Progress Notes Minor Gorman MD - 07/03/2019 1:30 PM EDT Diagnosis: R IDC 2 foci 24 mm and 10 mm, ER+/TN+ HER2 neg, Gr2, mrg neg, [id number] Subjective:I feel fine HPI: Oncology history -02/15/19 screening mammogram highly suspicious for malignancy - 02/21/19 right mammo and US hypoechoic 2.2 cm spiculated mass 9:00 5 cm from the nipple +3 hypoechoic spiculated masses in the right breast - 02/28/19 Dr. Dot Hull performed biopsy Pathology IDC, ER+ 90% TN 25-50%, HER2 IHC 0 -04/04/19 right breast [...] file Gets together: Not on file Attends jewish service: Not on file Active member of [...] axillary nodes normal Neurologic: Normal Vitals BP 155/80 (Patient Position: Sitting) Pulse (!) 102 Temp 36.7 ??C (98.1 ??F) (Oral) Resp 16 Ht 154.9 cm (5' 0.98) Wt 87.1 kg (192 lb) SpO2 97% BMI 36.30 kg/m?? Pathology: 02/28/19 I - Outside slide(s) labeled [id number], collection date 02/28/2019. A - Needle biopsies: [...] carcinoma in-situ - Fibrocystic changes B - Blackstone lymph node #1, excision: Two lymph nodes positive for metastatic carcinoma (2/2) Synoptic Report Specimen ?Procedure: ??Total mastectomy ?Specimen Laterality: ?? Right Tumor ?Histologic Type: ?? Invasive carcinoma of no special type (ductal, not ? otherwise specified) ?Histologic Grade (Afton Histologic Score) ? Glandular (Acinar) / Tubular [...] ?? Negative for extensive intraductal ?component (EIC) [id number] ? Location: [facility] The signing pathologist has (i) examined the relevant preparation(s) for the specimen(s) and (ii) rendered or confirmed the diagnosis(es). . ? Surgical Pathology DIAGNOSIS CONSULTATION CASE I - Outside slide(s) labeled [id number], collection date 02/28/2019. A - Needle biopsies: [...] (score 0) II - Outside slide(s) labeled [id number], collection date 04/04/2019. A - Right breast, total mastectomy: - Invasive ductal carcinoma, two foci (see Synoptic Report and Discussion) - Ductal carcinoma in-situ - Fibrocystic changes B - Blackstone lymph node #1, excision: Two lymph nodes positive for metastatic carcinoma (2/2) Synoptic Report Specimen ?Procedure: ??Total mastectomy ?Specimen Laterality: ?? Right Tumor ?Histologic Type: ?? Invasive carcinoma of no special type (ductal, not ? otherwise specified) ?Histologic Grade (Afton Histologic Score) ? Glandular (Acinar) / Tubular [...] ?? Cannot be determined ? Number of Blackstone Nodes Examined: ?2 Pathologic Stage Classification (pTNM, AJCC 8th Edition) ?TNM Descriptors: ?? m (multiple foci of invasive carcinoma) ?Primary Tumor (Invasive Carcinoma) (pT): ?pT2 ?Regional Lymph Nodes (pN) ? Modifier: ??(sn): Only sentinel node(s) evaluated. Category (pN): ?? pN1a Tumor Block(s): ?? A7 9 o'clock tumor; ??A10 10 o'clock tumor DISCUSSION The two foci of invasive carcinoma have similar morphology. Labs: 07/03/2019 WBC 5.13, hemoglobin 11.8, platelet count [...] 2 foci 24 mm and 10 mm, ER+/TN+ HER2 neg, Gr2, mrg neg, [id number] Treatment: - 04/04/19 right breast mastectomy with [...] was obtained. We will start paclitaxel weekly in 2 weeks. Plan: 1. AC today 2. Next visit in 2 weeks with blood work and for cycle of weekly Taxol The plan was discussed with [...] unspecified laterality Encounter for antineoplastic chemotherap y documented in this encounter Care Teams Edge Bander Hand Relationship Specialty Start Date End Date Mary Chinchilla APRN PCP - General Geriatric Medicine 04/24/[address] [place] [address] [place] [address] documented as of this encounter
--- OUTSIDE RECORDS SUMMARY | 2022-06-18 00:30 | XMS_ITS | Encounter Summary ---
:1950 [place] [address] Care Team Providers Name Role Phone Nery Maceod APRN Primary Care Provider [phone] Encounter Details Date Type Department Care Team Description 02/24/2016 Ancillary Procedure Radiology Library at Se li[facility] [address] HEMATOLOGY/ONCOLOGY [phone] [place], [place] [address] (Wo rk) Social History Tobacco Use Types Packs/Day Years Used Date Never Assessed Sex Assigned at Date Recorded Not on file documented as of this encounter Plan of Treatment Not on filedocumented as of this encounter Procedures Procedure Name Priority Date/Time Associated Diagnosis Comme nts FILM LIBRARY Routine 02/24/2016 12:00 AM Results for this STORAGE ONLY MAMMO EDT procedure are in the results section. documented in this encounter Results Film Library- Storage Only Mammo (02/24/2016 12:00 AM EDT) Specimen (Source) Anatomical Location Collection Method / Collectio n Time Received Time / Laterality Volume Narrative RAD - 04/19/2019 1:46 PM EDT This exam is auto-finalizing. It's purpo se is for storage only. Minor Gorman MD Noé FILM LIBRARY ORDERABLES Performing Organization Address City/State/ZIP Code Phon e Number RAD [place], [place] documented in this encounter Visit Diagnoses Not on filedocumented in this encounter Care Teams Affiliate Marketing Manager Relationship Specialty Start Date End Date Nery Macedo APRN PCP - General 10/06/10 04/23/[address] [place] [address] documented as of this encounter
--- OUTSIDE RECORDS SUMMARY | 2022-06-18 00:30 | XMS_ITS | Encounter Summary ---
:1950 [place] [address] Care Team Providers Name Role Phone Nery Macedo APRN Primary Care Provider [phone] Encounter Details Date Type Department Care Team Description 02/21/2019 Ancillary Procedure Radiology Library at Se lio Gorman [facility] [place] [address] HEMATOLOGY/ONCOLOGY [phone] [place], [place] [address] (Wo rk) Social History Tobacco Use Types Packs/Day Years Used Date Never Assessed Sex Assigned at Date Recorded Not on file documented as of this encounter Plan of Treatment Not on filedocumented as of this encounter Procedures Procedure Name Priority Date/Time Associated Diagnosis Comme nts FILM LIBRARY Routine 02/21/2019 12:05 AM Results for this STORAGE ONLY MAMMO EDT procedure are in the results section. documented in this encounter Results Film Library- Storage Only Mammo (02/21/2019 12:05 AM EDT) Specimen (Source) Anatomical Location Collection Method / Collectio n Time Received Time / Laterality Volume Narrative RAD - 04/19/2019 1:41 PM EDT This exam is auto-finalizing. It's purpo se is for storage only. Minor Gorman MD Noé FILM LIBRARY ORDERABLES Performing Organization Address City/State/ZIP Code Phon e Number RAD [place], [place] documented in this encounter Visit Diagnoses Not on filedocumented in this encounter Care Teams State Editor Relationship Specialty Start Date End Date Nery Macedo APRN PCP - General 10/06/10 04/23/[address] [place] [address] documented as of this encounter
--- OUTSIDE RECORDS SUMMARY | 2022-06-18 00:30 | XMS_ITS | Encounter Summary ---
:1950 Author Organization [facility] [address] Care Team Providers Name Role Phone Mary Chinchilla APRN Primary Care Provider Encounter Details Date Type Department Care Team Description 05/29/2019 [facility] [address] [place] [address] [facility] [place] [address] [phone] Social History Tobacco Use Types Packs/Day Years Used Date Never Smoker Smokeless Tobacco: Never Used Sex Assigned at Date Recorded Not on file documented as of this encounter Last Filed Vital Signs Vital Sign Reading Time Taken Comments Blood Pressure 153/75 05/29/2019 10:45 AM EDT Pulse 89 05/29/2019 10:45 AM EDT Temperature - - Respiratory Rate 18 05/29/2019 10:45 AM EDT Oxygen Saturation 99% 05/29/2019 10:45 AM EDT Inhaled Oxygen Concentration - - Weight 88.5 kg (195 lb) 05/29/2019 10:45 AM EDT Height 154.9 cm (5' 1) 05/29/2019 10:45 AM EDT Body Mass Index 36.84 05/29/2019 10:45 AM EDT documented in this encounter Progress Notes Soni Amaro APRN - 05/29/2019 11:00 AM EDT Subjective: Patient ID: Nery Rueda is a 68 y.o. female. Diagnosis: R IDC 2 foci 24 mm and 10 mm, ER+/OH+ HER2 neg, Gr2, mrg neg, D0Z1mCt HPI: Oncology history -02/15/19 screening mammogram highly [...] She is currently being treated with dose-dense AC and is s/p cycle 1. She reports feeling good and continues to work. She denies pain, fever, chills, night sweats or [...] behavior is normal. Vitals reviewed. Vitals: BP 153/75 (Patient Position: Sitting) Pulse 89 Resp 18 Ht 154.9 cm (5' 1) Wt 88.5 kg (195 lb) SpO2 99% BMI 36.84 kg/m?? 05/29/19 LABs: WBC 7.65, Hgb./Hct. 12.8/38.5, Plts. 191, ANC 5.05. Chem: Na+/K+ 143/2.9, BUN/Creat. 18/0.7, AST 11, ALT 24, Alk. Phos, 96. Assessment and Plan: 1. Breast Cancer. Currently being treated with dose-dense Adriamycin and Cytoxan. 2. Reviewed lab results with patient. Proceed with chemotherapy infusion today. 3. RTC in 2 weeks for labs and repeat toxicity assessment prior to infusion. Soni Amaro, MSN, ECHOCARDIOGRAPHY RADIOLOGY TECHNOLOGIST, AOCNP documented in this encounter Plan of Treatment Not on filedocumented as of this encounter Visit Diagnoses Diagnosis Hypokalemia Hypopotassemia documented in this encounter Care Teams Flight Engineer Performance Qualified Relationship Specialty Start Date End Date Mary Chinchilla APRN PCP - General Geriatric Medicine 04/24/[address] [place] [address] documented as of this encounter
--- OUTSIDE RECORDS SUMMARY | 2022-06-18 00:30 | XMS_ITS | Encounter Summary ---
:1950 [place] [address] Care Team Providers Name Role Phone Nery Macedo APRN Primary Care Provider [phone] Encounter Details Date Type Department Care Team Description 02/28/2019 Ancillary Procedure Radiology Library at Se lio Gorman [facility] [place] [address] HEMATOLOGY/ONCOLOGY [phone] [place], [place] [address] (Wo rk) Social History Tobacco Use Types Packs/Day Years Used Date Never Assessed Sex Assigned at Date Recorded Not on file documented as of this encounter Plan of Treatment Not on filedocumented as of this encounter Procedures Procedure Name Priority Date/Time Associated Diagnosis Comme nts FILM Routine 02/28/2019 12:00 AM Results for this LIBRARY-STORAGE EDT procedure ar e in ONLY US BREAST the results section. documented in this encounter Results Film Library Storage Only US Breast (02/28/2019 12:00 AM EDT) Specimen (Source) Anatomical Location Collection Method / Collectio n Time Received Time / Laterality Volume Narrative RAD - 04/19/2019 1:39 PM EDT This exam is auto-finalizing. It's purpo se is for storage only. Minor Gorman MD G FILM LIBRARY ORDERABLES Performing Organization Address City/State/ZIP Code Phon e Number [place], [place] documented in this encounter Visit Diagnoses Not on filedocumented in this encounter Care Teams Disability Services Coordinator Relationship Specialty Start Date End Date Nery Macedo APRN PCP - General 10/06/10 04/23/[address] [place] [address] documented as of this encounter
--- OUTSIDE RECORDS SUMMARY | 2022-06-18 00:30 | XMS_ITS | Encounter Summary ---
:1950 Author Organization [place] [address] Care Team Providers Name Role Phone Amor Mary LUCERO Primary Care Provider Reason for Visit Reason Comments IV Access Mediport flush Encounter Details Date Type Department Care Team Description 06/26/2019 Infusion Hematology Oncology at [facility] cancer metastasized [facility] to axillary lymph node, [address] unspecified laterality [place], [place] [phone] Social History Tobacco Use Types Packs/Day Years Used Date Never Smoker Smokeless Tobacco: Never Used Alcohol Use Standard Drinks/Week Comments Not Currently 0 (1 standard drink = 0.6 oz pure alcoho l) Sex Assigned at Date Recorded Not on file documented as of this encounter Progress Notes Nery Abrams RN - 06/26/2019 3:00 PM EDT INFUSION THERAPY ADMINISTRATION NOTES Cycle 4, Day 1 chemotherapy deferred due to low ANC. Will return next week for evaluation. TIME TREATMENT STARTED: 1500 TIME TREATMENT ENDED: 1505 DIAGNOSIS: Breast cancer REASON FOR VISIT: MEDIPORT FLUSH ONLY IV ACCESS: Mediport GAUGE: 19G placed at [facility] infusion. BLOOD RETURN: No. Next week will have labs and if no blood return will receive cathflo. ANY S/S OF INFECTION/EXTRAVASATIONS: no signs of IV complications observed IV FLUSHED WITH: 20cc NS and 500 units Heparin IV DISCONTINUED: yes ASSESSMENT: Patient tolerated treatment well. PLAN: Return to clinic per routine. documented in this encounter Plan of Treatment Not on filedocumented as of this encounter Visit Diagnoses Diagnosis Breast cancer metastasized to axillary l ymph node, unspecified laterality documented in this encounter Care Teams Manager Meat Relationship Specialty Start Date End Date Mary Chinchilla APRN PCP - General Geriatric Medicine 04/24/[address] [place] [address] documented as of this encounter
--- OUTSIDE RECORDS SUMMARY | 2022-06-18 00:30 | XMS_ITS | Encounter Summary ---
:1950 Author Organization [facility] [place] [address] Care Team Providers Name Role Phone Mary Chinchilla APRN Primary Care Provider Encounter Details Date Type Department Care Team Description 06/26/2019 Office Visit Hematology/Oncology Soni Amaro east cancer at [facility] NIC Cooper metastasized to [facility] [address] [place] [address] axillary lymph node, [place], [place] unspeci fied laterality [phone] [phone] Social History Tobacco Use Types Packs/Day Years Used Date Never Smoker Smokeless Tobacco: Never Used Alcohol Use Standard Drinks/Week Comments Not Currently 0 (1 standard drink = 0.6 oz pure alcoho l) Sex Assigned at Date Recorded Not on file documented as of this encounter Last Filed Vital Signs Vital Sign Reading Time Taken Comments Blood Pressure 155/73 06/26/2019 11:04 AM EDT Pulse 86 06/26/2019 11:04 AM EDT Temperature 36.6 ??C (97.9 ??F) 06/26/2019 11:04 AM EDT Respiratory Rate 18 06/26/2019 11:04 AM EDT Oxygen Saturation 99% 06/26/2019 11:04 AM EDT Inhaled Oxygen Concentration - - Weight 86.9 kg (191 lb 9.6 oz) 06/26/2019 11:04 AM EDT Height 154.9 cm (5' 0.98) 06/26/2019 11:04 AM EDT Body Mass Index 36.22 06/26/2019 11:04 AM EDT documented in this encounter Progress Notes Soni Amaro, RN CARE MANAGER - 06/26/2019 11:00 AM EDT Subjective: Patient ID: Nery Rueda is a 69 y.o. female. Diagnosis: R IDC 2 foci 24 mm and 10 mm, ER+/[place]+ HER2 neg, Gr2, mrg neg, [id number] HPI: Oncology history -02/15/19 screening mammogram highly [...] she is due for day 1, cycle #4. She reports feeling fatigued but continues to work. She has a mild non-productive cough, but she denies pain, fever, chills, night sweats or [...] behavior is normal. Vitals reviewed. Vitals: BP 155/73 (Patient Position: Sitting) Pulse 86 Temp 36.6 ??C (97.9 ??F) (Oral) Resp 18 Ht 154.9 cm (5' 0.98) Wt 86.9 kg (191 lb 9.6 oz) SpO2 99% BMI 36.22 kg/m?? / LABs: WBC 0.94, Hgb./Hct. 10.8/32.6, Plts. 209, ANC 0.24. Chem: Na+/K+ 143/3.7, BUN/Creat. 21H/0.7, AST 5L, ALT 17, Alk. Phos. 62, Alb. 3.2L. Assessment and Plan: 1. Invasive ductal carcinoma of right breast. Currently being treated with dose- dense Adriamycin andCytoxan every 2 weeks. 2. Reviewed lab results with patient. Despite Neulasta injection, patient's chemotherapy will be held this week secondary low WBCs and ANC. 3, RTC in 1 week for labs and repeat evaluation prior to infusion. Soni Amaro, MSN, RN CARE MANAGER, AOCNP documented in this encounter Plan of Treatment Not on filedocumented as of this encounter Procedures Procedure Name Priority Date/Time Associated Diagnosis Comme nts LAB SCAN 07/03/2019 12:00 AM Results for this EDT procedure are i n the results section . LAB SCAN 06/26/2019 12:00 AM Results for this EDT procedure are i n the results section . documented in this encounter Results SCAN DOC: LAB (07/03/2019 12:00 AM EDT) Narrative 07/03/2019 12:00 AM EDT This result has an attachment that is no t available. Ordered by an unspecified provider. Scanning Provider MEDIA MGR SCAN EXT ORDR/RSLT SCAN DOC: LAB (06/26/2019 12:00 AM EDT) Narrative 06/26/2019 12:00 AM EDT This result has an attachment that is no t available. Ordered by an unspecified provider. 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
--- OUTSIDE RECORDS SUMMARY | 2022-06-18 00:30 | XMS_ITS | Encounter Summary ---
:1950 Author Organization [facility] [place] [address] Care Team Providers Name Role Phone Mary Chinchilla APRN Primary Care Provider Reason for Visit Reason Onset Date Comments Chemotherapy 05/18/2019 Encounter Details Date Type Department Care Team Description 05/18/2019 Telephone [facility]ology [facility], Chemotherapy [facility] RN [address] [place] [phone] Social History Tobacco Use Types Packs/Day Years Used Date Never Smoker Smokeless Tobacco: Never Used Sex Assigned at Date Recorded Not on file documented as of this encounter Miscellaneous Notes Telephone Encounter - Tawana Mckeon I RN - 05/18/2019 2:13 PM EDT Post chemo call Placed call to patient to assess tolerance of first time chemotherapy treatment. Regimen received: Date of treatment: Assessment: Symptom?? Present (yes[y]/no[n]/ stable[s] from baseline)?? Additional information/Assessment?? GI? Nausea?none ?? Vomiting?? none ?? Nausea medication? Tolerating diet?? yes ?? Maintaining fluid intake (indicate volume)?? yes ?? Bowel movements regular? Diarrhea?none ?? Mouth sores? General? Pain (0 none - 10 high)?? none ?? Using pain medications?? Fever? Neuro? Level of fatigue (0 - 5)?5 ?? Falls? Numbness/tingling in arms/legs? Cognitive changes?none ?? Skin? Skin changes? Pinpoint red dots? Other s/s of bleeding? IV site/VAD problems? Musculoskeletal? Joint swelling or tenderness? Arthralgias or myalgias? Voiding problems? Color and quality of urine? Cardio-pulmonary? Shortness of breath?? none ?? Chest pain?? none ?? Swelling in legs? Calf pain or tenderness? Cough (productive/non-productive)? Psychosocial? Coping? I? Need prescription renewals? Other issues :?? Anxiety. Support provided ?? Education provided: ?? Plan:? 1. 2. Reinforced to patient/care-president and chief executive officer to call facility 06/06 with any new/worsening signs and symptoms or concerns or questions.?? Phone number provided.?? Pt verbalized understanding and is in agreement with plan. ? documented in this encounter Plan of Treatment Not on filedocumented as of this encounter Visit Diagnoses Not on filedocumented in this encounter Care Teams Cuffer Relationship Specialty Start Date End Date Mary Chinchilla APRN PCP - General Geriatric Medicine 04/24/[address] [place] [address] documented as of this encounter
--- OUTSIDE RECORDS SUMMARY | 2022-06-18 00:30 | XMS_ITS | Encounter Summary ---
:1950 Author Organization [facility] [place] [address] Care Team Providers Name Role Phone Mary Chinchilla APRN Primary Care Provider Encounter Details Date Type Department Care Team Description 07/31/2019 Office Visit Hematology/Oncology Soni Amaro east cancer at [facility] NIC Cooper metastasized to [facility] [address] [place] [address] axillary lymph node, [place], [place] unspeci fied laterality [phone] Social History Tobacco Use Types Packs/Day Years Used Date Never Smoker Smokeless Tobacco: Never Used Alcohol Use Standard Drinks/Week Comments Not Currently 0 (1 standard drink = 0.6 oz pure alcoho l) Sex Assigned at Date Recorded Not on file documented as of this encounter Last Filed Vital Signs Vital Sign Reading Time Taken Comments Blood Pressure 147/74 07/31/2019 10:04 AM EDT Pulse 78 07/31/2019 10:04 AM EDT Temperature 36.8 ??C (98.2 ??F) 07/31/2019 10:04 AM EDT Respiratory Rate 18 07/31/2019 10:04 AM EDT Oxygen Saturation 99% 07/31/2019 10:04 AM EDT Inhaled Oxygen Concentration - - Weight 85.5 kg (188 lb 9.6 oz) 07/31/2019 10:04 AM EDT Height 154.9 cm (5' 0.98) 07/31/2019 10:04 AM EDT Body Mass Index 35.65 07/31/2019 10:04 AM EDT documented in this encounter Progress Notes Soni Amaro, BI ANALYST - 07/31/2019 10:00 AM EDT Subjective: Patient ID: Nery Rueda is a 69 y.o. female. Diagnosis: R IDC 2 foci 24 mm and 10 mm, ER+/[place]+ HER2 neg, Gr2, mrg neg, T2N1aM HPI: Oncology history -02/15/19 screening mammogram highly suspicious for malignancy - 02/21/19 right mammo and US hypoechoic 2.2 cm spiculated mass 9:00 5 cm from the nipple +3 hypoechoic spiculated masses in the right breast - 02/28/19 Dr. Dot Hull performed biopsy Pathology IDC, ER+ 90% [place] 25-50%, HER2 IHC 0 -04/04/19 right breast [...] which she uses drops. She denies pain, fever, chills, night sweats, chills or unusual bleeding. PMH, PSH, FH, and SH: Except as mentioned in the interim history, unchanged since last office visit. Review of Systems Constitutional: Positive for fatigue. Eyes: Negative. Respiratory: Negative. Cardiovascular: Negative. Gastrointestinal: Negative. Genitourinary: Negative. Musculoskeletal: Negative. Skin: Negative. Allergic/Immunologic: Negative. Neurological: Negative. Hematological: Negative. Psychiatric/Behavioral: Negative. Objective: Physical Exam Constitutional: She is oriented to person, place, and time. She appears well- developed and well-nourished. HENT: Head: Normocephalic and atraumatic. Nose: Nose normal. Eyes: Conjunctivae and EOM are normal. Neck: Normal range of motion. Neck supple. Pulmonary/Chest: Effort normal and breath sounds normal. Abdominal: Soft. Bowel sounds are normal. Neurological: She is alert and oriented to person, place, and time. Skin: Skin is warm and dry. Psychiatric: She has a normal mood and affect. Her behavior is normal. Vitals reviewed. Vitals: BP 147/74 (Patient Position: Sitting) Pulse 78 Temp 36.8 ??C (98.2 ??F) (Oral) Resp 18 Ht 154.9 cm (5' 0.98) Wt 85.5 kg (188 lb 9.6 oz) SpO2 99% BMI 35.65 kg/m?? 07/31/19 LABs: WBC 2.3, Hgb./Hct. 10.1/31, Plts. 274, ANC 1.47 Chem: Na+/K+ 142/3.9, BUN, Creat. 16/0.8, AST 34, ALT 71H, Alk. Phos. 58, Alb. 3.3. Assessment and Plan: 1. Breast cancer. Currently being treated with weekly Paclitaxel. 2. Review lab results with patient. She asked if Benadryl premed could be reduced to 25mg. Proceed with weekly Paclitaxel today, with reduced Benadryl dose, 3. RTC in 1 week for labs and toxicity assessment prior to infusion. Soni Amaro, MSN, BI ANALYST, AOCNP documented in this encounter Plan of Treatment Not on filedocumented as of this encounter Procedures Procedure Name Priority Date/Time Associated Diagnosis Comme nts LAB SCAN 07/31/2019 12:00 AM Results for this EDT procedure are i n the results section . documented in this encounter Results SCAN DOC: LAB (07/31/2019 12:00 AM EDT) Narrative 07/31/2019 12:00 AM EDT This result has an attachment that is no t available. Ordered by an unspecified provider. 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
--- OUTSIDE RECORDS SUMMARY | 2022-06-18 00:30 | XMS_ITS | Encounter Summary ---
:1950 Author Organization [facility] [place] [address] Care Team Providers Name Role Phone Mary Chinchilla APRN Primary Care Provider Encounter Details Date Type Department Care Team Description 07/24/2019 Office Visit Hematology/Oncology Soni Amaro rmone receptor at [facility] C, RESIDENT BUYER positive malignant [address] neoplasm of breast, [place], [place]speci fied [phone] laterality [phone] (Wo rk) Social History Tobacco Use Types Packs/Day Years Used Date Never Smoker Smokeless Tobacco: Never Used Alcohol Use Standard Drinks/Week Comments Not Currently 0 (1 standard drink = 0.6 oz pure alcoho l) Sex Assigned at Date Recorded Not on file documented as of this encounter Last Filed Vital Signs Vital Sign Reading Time Taken Comments Blood Pressure 150/71 07/24/2019 9:55 AM EDT Pulse 83 07/24/2019 9:55 AM EDT Temperature 36.5 ??C (97.7 ??F) 07/24/2019 9:55 AM EDT Respiratory Rate 18 07/24/2019 9:55 AM EDT Oxygen Saturation 97% 07/24/2019 9:55 AM EDT Inhaled Oxygen Concentration - - Weight 86.9 kg (191 lb 9.6 oz) 07/24/2019 9:55 AM EDT Height 154.9 cm (5' 0.98) 07/24/2019 9:55 AM EDT Body Mass Index 36.23 07/24/2019 9:55 AM EDT documented in this encounter Progress Notes Soni Amaro, RESIDENT BUYER - 07/24/2019 10:00 AM EDT Subjective: Patient ID: Nery Rueda is a 69 y.o. female. Diagnosis: R IDC 2 foci 24 mm and 10 mm, ER+/[place]+ HER2 neg, Gr2, mrg neg, T2N1aM HPI: Oncology history -02/15/19 screening mammogram highly suspicious for malignancy - 02/21/19 right mammo and US hypoechoic 2.2 cm spiculated mass 9:00 5 cm from the nipple +3 hypoechoic spiculated masses in the right breast - 02/28/19 Dr. Dot Hull performed biopsy Pathology IDC, ER+ 90% [place] 25-50%, HER2 IHC 0 -04/04/19 right breast mastectomy with sentinel lymph node biopsy Dr. Hull -05/16/19 satrted dd AC. Interval History: Ms. Rueda is in clinic for follow-up appointment on breast cancer. She received 4 cycles of AC. Sheis now being treated with weekly Taxol x 12 weeks. Overall, she tolerated the 1st treatment well, except for some taste changes. She denies pain, fever, chills, night sweats, chills or unusual bleeding. PMH, PSH, FH, and SH: Except as mentioned in the interim history, unchanged since last office visit. Review of Systems Constitutional: Patient reports taste changes after 1st weekly dose of Taxol. HENT: Negative. Eyes: Negative. Respiratory: Negative. Cardiovascular: [...] behavior is normal. Vitals reviewed. Vitals: BP 150/71 (Patient Position: Sitting) Pulse 83 Temp 36.5 ??C (97.7 ??F) (Oral) Resp 18 Ht 154.9 cm (5' 0.98) Wt 86.9 kg (191 lb 9.6 oz) SpO2 97% BMI 36.23 kg/m?? 07/24/19 LABs: WBC 3.55, Hgb./Hct. 11.1/34,1, Plts. 361, ANC 2.69. Chem: Na+/K+ 142/3.5, BUN/Creat. 23/0.8, AST 18, ALT 29 Alk. Phos. 66. Assessment and Plan: 1. Breast cancer. Currently being treated with weekly Taxol x 12 weeks. 2. Reviewed lab results with patient. Proceed with weekly Taxol infusion today. 3. RTC in 1 week for labs and repeat assessment prior to Taxol. 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
--- OUTSIDE RECORDS SUMMARY | 2022-06-18 00:30 | XMS_ITS | Encounter Summary ---
:1950 [place] [address] Care Team Providers Name Role Phone Mary Chicnhilla APRN Primary Care Provider Reason for Visit Reason Comments Chemotherapy Cycle 1, Day 1 - First of 12 Taxols High Dollar Medication (Routine) - Specialty Diagnoses / Procedures Referred By Contact Refer red To Contact Hematology and Diagnoses Malignant neoplasm of unspecified site of unspecified female breast Secondary and unspecified malignant neoplasm of axilla and upper limb lymph nodes SD @ 930 Taxol (Paclitaxel) - Weekly [facility] [address] Hem Onc Infus ion Oncology Procedures TC PACLITAXEL, 1MG, INJ INFUSION ROOM [address] [place] [phone] HEMATOLOGY/[place] [address] Referral ID Status Reason Start Date Expiration Date Visits V isits Requested Authorized [id number] 07/17/2019 07/16/2020 99 99 Encounter Details Date Type Department Care Team Description 07/17/2019 Infusion Hematology Oncology at [facility] 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, unspecified laterality; [facility] 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, unspecified laterality [address] [place] [phone] Social History Tobacco Use Types Packs/Day Years Used Date Never Smoker Smokeless Tobacco: Never Used Alcohol Use Standard Drinks/Week Comments Not Currently 0 (1 standard drink = 0.6 oz pure alcoho l) Sex Assigned at Date Recorded Not on file documented as of this encounter Progress Notes Nery Abrams RN - 07/17/2019 10:00 AM EDT INFUSION THERAPY ADMINISTRATION NOTES DIAGNOSIS: Breast cancer CYCLE #: Cycle 1, Day 1 - First of 12 planned Paclitaxels REASON FOR VISIT: To receive chemotherapy SUBJECTIVE: Nery offers no complaints. OBJECTIVE: Seen by provider. Ready to treat. LAB DATA: WBC - 4.89, H/H - 10.8/33.5, Plt Ct - 221, ANC - 3.28, Lytes wnl, BUN/CR - 22/0.72 IV ACCESS: Port accessed off site. Flushes readily with brisk blood return. Pre administration: Chemotherapy orders independently verified for drug name, route, and dosage per patient's height, weight and BSA by Leny Abrams RN and Luis Grullon [facility]. REACTIONS (DESCRIPTION, TIME, INTERVENTION AND EFFECTIVENESS) none ASSESSMENT: Nery was awake, alert and tolerated treatment well. Port flushed with 20 cc's of NS and 500 units of heparin and de-accessed. Pt. chemo teaching instructions included: During clinic hours (8am-5pm Tuesday-Tuesday): pt. can call [phone] with questions or concerns. After clinic hours (5pm-8am Tuesday-Tuesday and weekends) pt can call [phone] and ask for the actuary clerk/oncologist contact center analyst. Nery Rueda verbalized understanding of potential chemotherapy [...] medications given for home use after chemotherapy. PLAN: Return to clinic per routine. documented [...] Dose Rate Site dexamethasone (DECADRON) injection Given 07/17/2019 10:37 AM EDT 10 mg 10 mg 10 mg, Intravenous, ONCE, 1 dose, On Tue07/17/19 at 1045, Administer 30 minutes prior to PACLitaxel diphenhydrAMINE (BENADRYL) injection 25 mg Given 07/17/2019 10:37 AM EDT 25 mg 25 mg, Intravenous, ONCE, 1 dose, On Tue07/17/19 at 1045, Administer 30 minutes prior to PACLitaxel, Routine famotidine (PEPCID) injection 20 mg Given 07/17/2019 10:36 AM EDT 20 mg 20 mg, Intravenous, ONCE, 1 dose, On Tue07/17/19 at 1045, Administer 30 minutes prior to PACLitaxel heparin, porcine 100 unit/mL flush 500 Given 07/17/2019 12:41 PM EDT 500 Units Units 500 Units, Intravenous, ONCE PRN, Starting on Tue07/17/19 at 1015, Until Tue07/17/19 at 1701, Line Care, Refer to Intravenous (IV) Procedure: Accessing Implanted Vascular Access Devices (104) procedure and/or Intravenous (IV) Job Aid: Adult Flushing & Catheter Care (4035) job aid for additional information regarding guidelines and administration., Routine ondansetron (ZOFRAN) tablet 8 mg Given 07/17/2019 10:36 AM EDT 8 mg 8 mg, Oral, ONCE, 1 dose, On Tue07/17/19 at 1045, Administer prior to chemotherapy, Routine PACLitaxel (TAXOL) 155 mg in New Bag 07/17/2019 11:26 AM EDT 155 m g 276 mL/hr sodium chloride 0.9% Non-PVC 275.8333 mL chemo infusion 155 mg (rounded from 155.2 mg = 80 mg/m2/dose ? 1.94 m2 Treatment Plan BSA from Recorded weight), Intravenous, ONCE, 1 dose, On Tue07/17/19 at 1115, Administer over 60 Minutes, Warning Vesicant/Irritant Medication sodium chloride 0.9 % (flush) flush 5-20 mL Given 07/17/2019 12:38 PM EDT 20 mLs 5-20 mL, Intravenous, EVERY 1 MIN PRN, Starting on Tue07/17/19 at 1015, Until Tue07/17/19 at 1701, Line Care, Flush pertains to all indwelling lines. Flush per protocol found in the job aid using the link provided on this medication record. Refer to Intravenous (IV) Job Aid: Adult Flushing & Catheter Care (0785) job aid for additional information regarding guidelines and administration., Routine documented in this encounter Care Teams Emergency Department Nurse Relationship Specialty Start Date End Date Mary Chinchilla APRN PCP - General Geriatric Medicine 04/24/[address] [place] [address] documented as of this encounter
--- OUTSIDE RECORDS SUMMARY | 2022-06-18 00:30 | XMS_ITS | Encounter Summary ---
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, unspecified laterality Minor Gorman MD [facility] Hem Onc Office Procedures TC PALONOSETRON HCL, 25MCG, INJECTION (ALOXI) TC APREPITANT, 1 MG, INJECTION TC DOXORUBICIN HCL, 10MG, INJECTION (ADRIAMYCIN) TC CYCLOPHOSPHAMIDE, 100MG (CYTOXAN) TC PEGFILGRASTIM, 6MG, INJECTION [address] HEMATOLOGY/[place] [phone] Fax: Referral ID Status Reason Start Date Expiration Date Visits Requ ested Visits Authorized [id number] Closed 05/10/2019 12/13/2019 99 99 Encounter Details Date Type Department Care Team Description 07/03/2019 Infusion Hematology Oncology at [facility] 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, unspecified laterality; [facility] 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, unspecified laterality [address] [place] [address] [phone] Social History Tobacco Use Types Packs/Day Years Used Date Never Smoker Smokeless Tobacco: Never Used Alcohol Use Standard Drinks/Week Comments Not Currently 0 (1 standard drink = 0.6 oz pure alcoho l) Sex Assigned at Date Recorded Not on file documented as of this encounter Progress Notes Neena Chaparro RN - 07/03/2019 2:00 PM EDT INFUSION THERAPY ADMINISTRATION NOTES DIAGNOSIS: Breast Cancer CYCLE #4 Day 1 REASON FOR VISIT: AC + Onpro SUBJECTIVE Nery offers no complaints. OBJECTIVE LAB DATA: WNL for today's infusion. Seen by Dr. Gorman. IV ACCESS: Mediport accessed at [facility] for lab draw, blood return present, flushes easily. Pre administration: Chemotherapy orders independently verified for drug name, route, and dosage per patient's height, weight and BSA by Neena Chaparro RN & formerly [facility] onsite. REACTIONS (DESCRIPTION, TIME, INTERVENTION AND EFFECTIVENESS) [...] Dose Rate Site aprepitant (CINVANTI) injection Given 07/03/2019 2:40 PM EDT 130 mg Emul 130 mg 130 mg, Intravenous, ONCE, 1 dose, On Tue07/03/19 at 1445, Alternative administration of IV push over 2 minutes is a recommendation from the boat outfitter. Administer prior to chemotherapy., Routine cyclophosphamide (CYTOXAN) 1,146 New Bag 07/03/2019 3:19 PM ED T 1,146 mg 615 mL/hr mg in sodium chloride 0.9% 307.3 mL chemo infusion 1,146 mg (600 mg/m2/dose ? 1.91 m2 Treatment Plan BSA from Recorded weight), Intravenous, ONCE, 1 dose, On Tue07/03/19 at 1545, Administer over 30 Minutes, Warning Vesicant/Irritant Medication dexamethasone (DECADRON) tablet 10 mg Given 07/03/2019 2:38 PM EDT 10 mg 10 mg, Oral, ONCE, 1 dose, On Tue07/03/19 at 1445, Administer prior to chemotherapy, Routine DOXOrubicin (ADRIAMYCIN) chemo injection Given 07/03/2019 3:11 P M EDT 114.6 mg 114.6 mg 114.6 mg (60 mg/m2/dose ? 1.91 m2 Treatment Plan BSA from Recorded weight), Intravenous, ONCE, 1 dose, On Tue07/03/19 at 1545, Administer each syringe over a minimum of 3 minutes per syringe. heparin, porcine 100 unit/mL flush 500 Given 07/03/2019 3:53 PM EDT 500 Units Units 500 Units, Intravenous, ONCE PRN, Starting on Tue07/03/19 at 1424, Until Tue07/03/19 at 1757, Line Care, Refer to Intravenous (IV) Procedure: Accessing Implanted Vascular Access Devices (556) procedure and/or Intravenous (IV) Job Aid: Adult Flushing & Catheter Care (3083) job aid for additional information regarding guidelines and administration., Routine LORazepam (ATIVAN) tablet 0.5 mg Given 07/03/2019 2:39 PM EDT 0.5 mg 0.5 mg, Oral, ONCE, 1 dose, On Tue07/03/19 at 1445, Administer prior to chemotherapy, Routine palonosetron (ALOXI) injection 0.25 mg Given 07/03/2019 2:39 PM EDT 0.25 mg 0.25 mg, Intravenous, ONCE, 1 dose, On Tue07/03/19 at 1445, Administer over 30 seconds. Administer prior to chemotherapy, Routine pegfilgrastim (NEULASTA ONPRO) Given 07/03/2019 3:26 PM EDT 6 mg Right Arm injection kit 6 mg, Subcutaneous, ONCE, 1 dose, On Tue07/03/19 at 1445, Allow the prefilled syringe co-packaged with the on-body injector to reach room temperature at least 30 minutes prior to administration., Routine sodium chloride 0.9 % (flush) flush 5-20 mL Given 07/03/2019 3:53 PM EDT 20 mLs 5-20 mL, Intravenous, EVERY 1 MIN PRN, Starting on Tue07/03/19 at 1424, Until Tue07/03/19 at 1757, Line Care, Flush pertains to all indwelling lines. Flush per protocol found in the job aid using the link provided on this medication record. Refer to Intravenous (IV) Job Aid: Adult Flushing & Catheter Care (1098) job aid for additional information regarding guidelines and administration., Routine documented in this encounter Care Teams Metal Furniture Polisher Relationship Specialty Start Date End Date Mary Chinchilla APRN PCP - General Geriatric Medicine 04/24/[address] [place] [address] documented as of this encounter
--- OUTSIDE RECORDS SUMMARY | 2022-06-18 00:30 | XMS_ITS | Encounter Summary ---
:1950 [place] [address] Care Team Providers Name Role Phone Nery Macedo APRN Primary Care Provider [phone] Encounter Details Date Type Department Care Team Description 10/08/2013 Ancillary Procedure Radiology Library at [facility] [place] [phone] HEMATOLOGY/ONCOLOGY [phone] [place], [place] [address] (Wo rk) Social History Tobacco Use Types Packs/Day Years Used Date Never Assessed Sex Assigned at Date Recorded Not on file documented as of this encounter Plan of Treatment Not on filedocumented as of this encounter Procedures Procedure Name Priority Date/Time Associated Diagnosis Comme nts FILM LIBRARY Routine 10/08/2013 12:00 AM Results for this STORAGE ONLY MAMMO EST procedure are in the results section. documented in this encounter Results Film Library- Storage Only Mammo (10/08/2013 12:00 AM EST) Specimen (Source) Anatomical Location Collection Method / Collectio n Time Received Time / Laterality Volume Narrative RAD - 04/19/2019 1:50 PM EDT This exam is auto-finalizing. It's purpo se is for storage only. Minor Gorman MD Noé FILM LIBRARY ORDERABLES Performing Organization Address City/State/ZIP Code Phon e Number RAD [place], [place] documented in this encounter Visit Diagnoses Not on filedocumented in this encounter Care Teams Car Cleaning Supervisor Relationship Specialty Start Date End Date Nery Macedo APRN PCP - General 10/06/10 04/23/[address] [place] [address] documented as of this encounter
--- OUTSIDE RECORDS SUMMARY | 2022-06-18 00:30 | XMS_ITS | Encounter Summary ---
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 Hem Onc Office Procedures TC PALONOSETRON HCL, 25MCG, INJECTION (ALOXI) TC APREPITANT, 1 MG, INJECTION TC DOXORUBICIN HCL, 10MG, INJECTION (ADRIAMYCIN) TC CYCLOPHOSPHAMIDE, 100MG (CYTOXAN) TC PEGFILGRASTIM, 6MG, INJECTION [address] HEMATOLOGY/[place] [phone] Fax: Referral ID Status Reason Start Date Expiration Date Visits Requ ested Visits Authorized [id number] Closed 05/10/2019 12/13/2019 99 99 Encounter Details Date Type Department Care Team Description 06/12/2019 Infusion Hematology Oncology at [facility] 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, unspecified laterality; [facility] 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, unspecified laterality [address] [place] [phone] Social History Tobacco Use Types Packs/Day Years Used Date Never Smoker Smokeless Tobacco: Never Used Alcohol Use Standard Drinks/Week Comments Not Currently 0 (1 standard drink = 0.6 oz pure alcoho l) Sex Assigned at Date Recorded Not on file documented as of this encounter Progress Notes Michelle Valverde RN - 06/12/2019 11:30 AM EDT INFUSION THERAPY ADMINISTRATION NOTES DIAGNOSIS: Breast Cancer CYCLE #:3 Day 1 REASON FOR VISIT: AC + Onpro SUBJECTIVE Nery offers no complaints. OBJECTIVE LAB DATA: WBC 10.52, Hgb/HCT 11.3/33.8, PLT 242, ANC 8.42, BUN/Cr 17/0.69, K 3.4 IV ACCESS: Mediport accessed at [facility] for lab draw, blood return present, flushes easily. Pre administration: Chemotherapy orders independently verified for drug name, route, and dosage per patient's height, weight and BSA by Tavo Valverde RN & [facility] onsite. REACTIONS (DESCRIPTION, TIME, INTERVENTION AND [...] Dose Rate Site aprepitant (CINVANTI) injection Given 06/12/2019 12:01 PM EDT 13 0 mg Emul 130 mg 130 mg, Intravenous, ONCE, 1 dose, On Tue06/12/19 at 1145, Alternative administration of IV push over 2 minutes is a recommendation from the air traffic control specialist. Administer prior to chemotherapy., Routine cyclophosphamide (CYTOXAN) 1,146 New Bag 06/12/2019 1:12 PM ED T 1,146 mg 615 mL/hr mg in sodium chloride 0.9% 307.3 mL chemo infusion 1,146 mg (600 mg/m2/dose ? 1.91 m2 Treatment Plan BSA from Recorded weight), Intravenous, ONCE, 1 dose, On Tue06/12/19 at 1245, Administer over 30 Minutes, Warning Vesicant/Irritant Medication dexamethasone (DECADRON) tablet 10 mg Given 06/12/2019 11:57 AM EDT 10 mg 10 mg, Oral, ONCE, 1 dose, On Tue06/12/19 at 1145, Administer prior to chemotherapy, Routine DOXOrubicin (ADRIAMYCIN) chemo injection Given 06/12/2019 1:03 P M EDT 114.6 mg 114.6 mg 114.6 mg (60 mg/m2/dose ? 1.91 m2 Treatment Plan BSA from Recorded weight), Intravenous, ONCE, 1 dose, On Tue06/12/19 at 1245, Administer each syringe over a minimum of 3 minutes per syringe. heparin, porcine 100 unit/mL flush 500 Given 06/12/2019 1:48 PM EDT 500 Units Units 500 Units, Intravenous, ONCE PRN, Starting on Tue06/12/19 at 1126, Until Tue06/12/19 at 1601, Line Care, Refer to Intravenous (IV) Procedure: Accessing Implanted Vascular Access Devices (536) procedure and/or Intravenous (IV) Job Aid: Adult Flushing & Catheter Care (5086) job aid for additional information regarding guidelines and administration., Routine LORazepam (ATIVAN) tablet 0.5 mg Given 06/12/2019 11:57 AM EDT 0.5 mg 0.5 mg, Oral, ONCE, 1 dose, On Tue06/12/19 at 1145, Administer prior to chemotherapy, Routine palonosetron (ALOXI) injection 0.25 mg Given 06/12/2019 12:02 PM EDT 0.25 mg 0.25 mg, Intravenous, ONCE, 1 dose, On Tue06/12/19 at 1145, Administer over 30 seconds. Administer prior to chemotherapy, Routine pegfilgrastim (NEULASTA ONPRO) injection Given 06/12/2019 1:13 P M EDT 6 mg Left Arm kit 6 mg, Subcutaneous, ONCE, 1 dose, On Tue06/12/19 at 1145, Allow the prefilled syringe co-packaged with the on-body injector to reach room temperature at least 30 minutes prior to administration., Routine sodium chloride 0.9 % (flush) flush 5-20 mL Given 06/12/2019 1:48 PM EDT 20 mLs 5-20 mL, Intravenous, EVERY 1 MIN PRN, Starting on Tue06/12/19 at 1126, Until Tue06/12/19 at 1601, Line Care, Flush pertains to all indwelling lines. Flush per protocol found in the job aid using the link provided on this medication record. Refer to Intravenous (IV) Job Aid: Adult Flushing & Catheter Care (7724) job aid for additional information regarding guidelines and administration., Routine documented in this encounter Care Teams Furniture Sales Associate Relationship Specialty Start Date End Date Mary Chinchilla APRN PCP - General Geriatric Medicine 04/24/[address] [place] [phone] documented as of this encounter
--- OUTSIDE RECORDS SUMMARY | 2022-06-18 00:31 | XMS_ITS | Encounter Summary ---
:1950 Author Organization [facility] Address [address] [place] [address] Care Team Providers Name Role Phone Unknown, Provider Primary Care Provider Encounter Details Date Type Department Care Team Description 04/04/[address] [facility], [address] [place] [address] [place] [address] (Wo rk) Social History Tobacco Use Types Packs/Day Years Used Date Never Assessed Sex Assigned at Date Recorded Not on file documented as of this encounter Plan of Treatment Not on filedocumented as of this encounter Procedures Procedure Name Priority Date/Time Associated Diagnosis Comme [facility] SURGICAL PATHOLOGY Routine 04/04/2019 17:55 Resul ts for this EDT procedure are i n the results section. documented in this encounter Results SURGICAL PATHOLOGY (04/04/2019 17:55 EDT) Pathology SURGICAL PATHOLOGY REPORT [facility] Report: Reports generated via electronic interface conta in original data; [facility] however they are lacking the format of the original re port. SERVICES Caution should be taken when reading/interpreting unfo rmatted reports. Name: ? NERY RUEDA ? Accession #: ? [id number] ? : ? 1950 (Age: [age]) ??F ? Collect Date: ? 04/04/2019 ? Location: ? [facility] ? Receive Date: ? 04/05/20 19 ? Provider: MAVIS RICO MD Copy to: DAWNABa DIAZ GILL BOX TENDER ? Final Pathologic Diagnosis: ? SUMMARY DIAGNOSIS FOR MALIGNANT BREAST TUMORS AJCC (8th edition): pT2(m) pN1a(sn) Laterality: ??Right ? Procedure: ??Total mastectomy; sentinel lymph node bio psy Histologic Type: Invasive ductal Tumor Size: ??2.4 x 2.1 x 1.7 cm and 1.0 x 1.0 x 0.9 c m Tumor Location: ??Upper outer quadrant; 9 o'clock and upper outer quadrant; 10 o'clock. Cally Combined Histologic Scores: ?Tubular differentiation: Score 3 ?Nuclear pleomorphism: Score 2 ?Mitotic Rate: ??Sco re 2 (actual count 11/10 HPF with field diameter of 0.54 mm) ?Total Score: ??7 Overall Grade: ?Grade II (moderate) Invasive margins: ??Negative (9.0 mm from closest sally in, anterior) DCIS: ??Solid pattern with necrosis, nuclear grade II % DCIS: ??10% of tumor mass DCIS margins: ??Negative (2.0 mm from closest margin, anterior) LVI: ??No definitive Treatment effect in breast: No known presurgical thera py Treatment effect in nodes: ??No known presurgical ther apy Lymph nodes: ?2/2 (positive/total number examin ed) [place] nodes: ?? 2 (examined and included in total) ? 2 nodes with macrometastases ? 0 nodes with micrometastases ? 0 nodes with isolated tumor cell clusters only ER/DC: ? 9 o'clock tu mor: ER positive (greater than 90%); DC positive (50%) ([id number]) ? 10 o'clock t umor: ER positive (greater than 90%); DC positive (25%) ([id number]) Her2/donna: ?Both tumors 0/negative (by immunohistochemistry) ([id number]) FINAL PATHOLOGIC DIAGNOSIS: A. ??BREAST, RIGHT, TOTAL MASTECTOMY: - Adenocarcinoma, invasive, ductal type, moderately di fferentiated. ??See comment. - Tumor location: Upper outer quadrant. - Tumor position: 9 o'clock, 10 cm from nipple and 10 o'clock 6.0 cm from nipple. - Tumor focality: Two foci of invasive carcinoma. - Tumor measures 2.4 cm in greatest dimension (AJCC: pT2(m), pN1a(sn). - Surgical resection margins negative; invasive tumor present: ??- 9.0 mm from anterior margin. ??- Greater than 1.0 cm from deep margin. - Lymphatic vascular invasion: No definitive. ?? - Ductal carcinoma in situ (DCIS), solid pattern, with central necrosis, intermediate II nuclear grade. - DCIS comprises 10% of total tumor mass. - DCIS is present within and adjacent to invasive lenny or mass. - Surgical resection margins negative; DCIS present: ??- 2.0 mm from anterior margin. ??- Greater than 1.0 cm from deep margin. - Fibrocystic changes including: ??- Microcyst. - Apocrine metaplasia. - Interlobular fibrosis. - Intraductal papilloma (2.0 mm in maximum dimension). - Skin: Negative for malignancy. - Nipple: ??Negative for malignancy. - Prior biopsy sites: No definitive. ?? B. LYMPH NODES, SENTINEL, LEFT AXILLA, EXCISIONAL BIOP SY: - Two of two lymph nodes positive for metastatic carci noma (2/2). ??- Largest metastatic focus is 1.4 cm. ??- Extranodal extension is present. Comment: Two distinct tumors are present, both of which h ave similar histology and are moderately differentiated. The larger tumor at 9 o'farhana ck measures 2.4 cm in greatest dimension and is used for staging. The smalle r tumor at 10 o'clock measures 1.0 cm in greatest dimension. The tumors disp lay extensive delayed fixation artifact with artifactual spaces around tumor nests. ??Although lymphvascular invasion may b e present, it is very difficult to assess for in the presence of extensive retrac tion artifact. ??Signal Helper sections were shown at intradepartmental consultation conference on 2018. ??The separately submitted fragment of skin is negative for tumor. Dr. Uribe 04/11/2019 1:25 PM Document reviewed and electronically signed by: RAE NUNEZ MD Report ??Date: 04/11/2019 15:08 By the signature above, the attending physician certif ies that he/she has personally conducted a gross and/or microscopic examin ation of the described specimens and rendered or confirmed the above diagnosi s. Specimen(s) Received: A. ??Right breast; single rose ture superior, large mastectomy piece, double suture inferior B. ??[place] lymph node #1 Clinical History: Malignant carcinoma of R breast, invasive ductal, mult ifocal Gross Description: A. ?Received in formalin labelled with proper p atient identification (initials J, E) and right breast; sutur e superior on mastectomy tissue; small piece single suture superior, double suture inferior, superior edge abuts inferior border of mastectomy specimen is the product of a total mastectomy (935 g, 21.5 cm medial to lateral x 21.5 cm superior t o inferior x 6.0 cm anterior to posterior), that is oriented with a single short black double suture designating superior. There is an overlying ellipse of cortés skin (21.5 cm medial to lateral x 10.0 cm superior to inferior) with a central erect nipple (1.1 x 1.0 x 0.4 cm). ? Within the upper outer quadrant o f the larger mastectomy specimen, at 9 o'clock and 10.5 cm from the nipple there is a firm cortés-white mass (2.4 x 2.1 x 1.7 cm) with irregular spicu lated borders. Sectioning of the mass reveals a cortés white homogenous cut surface. The mass is greate r than 1 cm from the anterior and posterior margins. No definitive biopsy site or clip is identified in the mass. In the upper outer quadrant of the larger mastectomy specimen, at 10 o'clock and 6.5 cm from the nipple, there is a second cortés-wh ite mass (1.0 x 1.0 x 0.9 cm) with irregular spiculated borders. Sectioning of the mass reveals a cortés-white homogenous cut surface. The mass is greater than 1.0 cm from the anterior and posterior margins. The secon d mass is approximately 2.0 cm from the first mass. No definitive biopsy site or clip is identified within the 2nd mass. The remaining cut surface is composed of lobulated a dipose tissue with a moderate amount of cortés-white fibrous tissue. No scars or lesions are identified on the epidermal surface. Received in the same container is a separate piece of oriented skin with attached fibroadipose tissue (19.0 x 1.3 x 7.0 cm). Th ere is a single suture designating superior and a double suture designating i nferior. The overlying cortés-pink ellipse of skin measures 19.0 x 1.3 x 0.5 cm. No scars or lesions are identified on the epidermal surface. Sectioning of the fibroadipose tissue remained reveals a cortés yellow cut surfac e without grossly identifiable nodules or masses. ? Signal Helper sections are submitted as follow s: INK PERRIN Black - deep Blue - superficial ? BLOCK PERRIN A1- ??nipple, perpendicular sections A2- ??lactiferous sinus, en face A3- ??mass at 9 o'clock, nearest anterior margin A4- ??mass at 9 o'clock, nearest posterior margin A5-A7- ??mass at 9 o'clock, additional sections A8-A9- ??mass at 10 o'clock, nearest anterior margin, bisected A10- ??mass at 10 o'clock, additional section from ant erior margin A11- ??mass at 10 o'clock, additional section A12- ??upper inner quadrant, two representative government relations sectio ns A13- ??lower inner quadrant, two representative government relations sectio ns A14- ??lower outer quadrant, two representative government relations sectio ns A15- ??upper outer quadrant, two representative government relations sectio ns A16- ??separately received s kin and fibroadipose tissue, representative government relations sections Time removed from patient: 1105 hrs. 04/04/2019 Time in formalin: 1105 hrs. 04/04/2019 Time out of formalin: 1900 hrs. 04/06/2019 B. ?Received in formalin labelled with proper p atient identification (initials J, L) and sentinel lymph node are two cortés-brown lymph nodes (2.5 x 2.0 x 1.5 cm and 0.6 x 0.6 x 0.5 cm). The larger node is serially sectioned and entirely submitted as B1-B4 and the smaller lymph node is bisected and entirely submitted in B5. Dr. Wheeler 04/06/2019 2:47 PM End of Report Specimen Performing Organization Address City/State/ZIP Code Phon e Number [facility] [address] [place] [address] SERVICES documented in this encounter Visit Diagnoses Not on filedocumented in this encounter Care Teams Marketing Data Specialist Relationship Specialty Start Date End Date Unknown, Provider, PCP - General 03/02/19 documented as of this encounter
--- OUTSIDE RECORDS SUMMARY | 2022-06-18 00:31 | XMS_ITS | Encounter Summary ---
:1950 Author Organization [facility] Address [address] [place] [address] Care Team Providers Name Role Phone Unavailable Primary Care Provider Unavailable Encounter Details Date Type Department Care Team Description 02/28/2019 Results Only [facility]- Mavis Shah, [address] [place] [address] [address], [place] [id number] (Wo rk) Social History Tobacco Use Types Packs/Day Years Used Date Never Assessed Sex Assigned at Date Recorded Not on file documented as of this encounter Plan of Treatment Not on filedocumented as of this encounter Procedures Procedure Name Priority Date/Time Associated Diagnosis Comme nts SURGICAL PATHOLOGY Routine 02/28/2019 15:46 Resul ts for this EDT procedure are i n the results section. documented in this encounter Results SURGICAL PATHOLOGY (02/28/2019 15:46 EDT) Pathology SURGICAL PATHOLOGY REPORT [facility] MEDICAL Report: CENTER Reports generated via electronic interface contain gomez ginal data; LABORATORY however they are lacking the format of the original re port. SERVICES Caution should be taken when reading/interpreting unfo rmatted reports. Name: ? NERY RUEDA ? Accession #: ? [id number] ? : ? 1950 (Age: [age]) ??F ?Collect Date: ? 02/28/2019 ? Location: ? [facility] ? Receive Date: ? 03/01/20 19 ? Provider: MAVIS RICO MD Copy to: DAWNA DIAZ [employer]IC SOURCER ? Final Pathologic Diagnosis: A. ??BREAST, RIGHT, 10 O'CLOCK, ULTRASOUND GUIDED CORE BIOPSY: - Adenocarcinoma, invasive, ductal type, nuclear grade II. ??See comment. B. ??BREAST, RIGHT, 9 O'CLOCK, ULTRASOUND GUIDED CORE BIOPSY: - Adenocarcinoma, invasive, ductal type, nuclear grade II. ??See comment. Comment: Estrogen and progesterone receptor assays and Her2 lily dies on A1 and B1 have been ordered and results will be issued in separ ate procedure reports. ??This case was shown at intradepar tmental consultation conference on 03/02/2019. ??(Dr. López)/mpl ? Document reviewed and electronically signed by: ? RAE LÓPEZ MD ? Report ??Date: 03/02/2019 16:42 By the signature above, the attending physician certif ies that he/she has personally conducted a gross and/or microscopic examin ation of the described specimens and rendered or confirmed the above diagnosi s. Clinical History: Rt breast lesions ? Gross Description: A. ?Received in formalin labelled with proper p atient identification (initials J, E) and RT breast 10 o'clock is a single yellow and white fibrofatty tissue core (0.5 cm in length x 0.2 cm in diameter). Submitted intact in A1. ? Time removed from patient: 03/01/2019 1400 hrs. Time placed in formalin: 03/01/2019 1400 hrs. Time out of formalin: 03/02/2019 0130 hrs. B. ?Received in formalin labelled with proper p atient identification (initials J, E) and RT breast 9 o'clock is a single yellow and white fibrofatty tissue core (1.0 cm in length x 0.2 cm in diameter). Submitted intact in B1. ? Time removed from patient: 03/01/2019 1400 hrs. Time placed in formalin: 03/01/2019 1400 hrs. Time out of formalin: 03/02/2019 0130 hrs. CANDIDA Garcia ([facility]) 03/01/2019 3:57 PM ? ESTROGEN AND PROGESTERONE RECEPTOR IMMUNOPEROXIDASE ST AINS ? Date Ordered: ? 03/05/2019 ? Status: ?? Signed Out ?Date Complete: ? 03/05/2019 ? By: ??Ti honorio Gallardo ? Date Reported: ? 03/05/2019 ? Interpretation A. ??BREAST, RIGHT, 10 O'CLOCK, ULTRASOUND GUIDED CORE BIOPSY: - Adenocarcinoma, invasive. ? - Positive for estrogen receptors (in greater than 90% of tumor cells). ? - Nuclear staining intensity: Strong. ? - Positive for progesterone receptors (in 25% o f tumor cells). ? - Nuclear staining intensity: ??Moderate to str santa. B. ??BREAST, RIGHT, 9 O'CLOCK, ULTRASOUND GUIDED CORE BIOPSY: - Adenocarcinoma, invasive. ? - Positive for estrogen receptors (in greater than 90% of tumor cells). ? - Nuclear staining intensity: Strong. ? - Positive for progesterone receptors (in 50% o f tumor cells). ? - Nuclear staining intensity: ??Moderate to str santa. Comment Cold ischemic time and total formalin fixation time ap propriate: ??Yes ? Description Tissue submitted: Paraffin embedded tissue block labelled [id number] (A1) from [facility] Immunohistochemical assays for estrogen receptors (SP1 , [place]) and progesterone receptors (16, [place]) have been performed on this specimen. Intranuclear receptor comple xes were visualized on tissue sections using an HRP polymer immunohistochemical technique. ??This assay is intended for paraffin-embedded tissue fix ed in 10% neutral buffered formalin for 6-72 hours. ? Results are reported as negative (<1% nuclear staining ) or positive with the proportion of positive cells noted. ??Estrogen recepto r expression in <5% of tumor cells may not have a s milton interaction with estrogen receptor modulators such as Tamoxifen. ?? Reference: ??ASCO-CAP Guidel ine Recommendations for IHC testing of ER and PA. J Clin Oncol 2010;28:3059-6964. NOTE: ??One or more of the reagents used in imm unoperoxidase testing in this case may not have been cleared or approved by the U.S. Food and Drug Administration (FDA). ??The FDA has determined that such clearance or approval is not necessary. ??These tests are used for clinical purposes. ??They should not be regarded as investigational or for research. ??These r eagents' performance characteristics have been de termined by [facility] and/or by the referring labo carline. ??The positive and negative controls worked appropriately. If immunopero xidase staining has been performed on alcohol fixed cytology specimens, which has not been fully validated , the assays should be interpreted with caution and correlated with clinical data. ??This laboratory is certified under the Clinical Laboratory Improvement Amendments of 1988 (CLIA-88) as qualified to perform high complexity clinical labor atory testing. Document reviewed and electronically signed by: ? KAVITHA CAPELLAN MD PHD ? Report date: 03/05/2019 By the signature above, the attending physician certif ies that he/she has personally conducted a gross and/or microscopic examin ation of the described specimens and rendered or confirmed the above diagnosi s. Her 2 IMMUNOPEROXIDASE REPORT ? Date Ordered: ? 03/05/2019 ? Status: ?? Signed Out ?Date Complete: ? 03/05/2019 ? By: ??Samm Gallardo ? Date Reported: ? 03/05/2019 ? Interpretation ? ASSAY RESULTS (A1) Her2 SCORE: ?0/negative TUMOR LOCATION: ??Right breast, 10 o'clock COLD ISCHEMIC TIME AND TOTAL FORMALIN FIXATIVE TIME AP PROPRIATE: ??Yes CELLS WITH COMPLETE MEMBRANE STAINING: ??None MEMBRANE STAINING INTENSITY: ??Faint PARTIAL MEMBRANE STAINING: ??Present in 5% of cells CYTOPLASMIC STAINING: ??Absent STAINING PATTERN: ??Homogeneous STAINING IN BENIGN EPITHELIUM: Absent THE HER2 ASSAY PERFORMED IS INTERPRETED NEGATIVE. ? ASSAY RESULTS (B1) Her2 SCORE: ?0/negative TUMOR LOCATION: ??Right breast, 9 o'clock COLD ISCHEMIC TIME AND TOTAL FORMALIN FIXATIVE TIME AP PROPRIATE: Yes CELLS WITH COMPLETE MEMBRANE STAINING: ??None MEMBRANE STAINING INTENSITY: ??Faint PARTIAL MEMBRANE STAINING: ??Present in 5% of cells CYTOPLASMIC STAINING: ??Absent STAINING PATTERN: ??Homogeneous STAINING IN BENIGN EPITHELIUM: ??Absent THE HER2 ASSAY PERFORMED IS INTERPRETED NEGATIVE. Description Tissue submitted: Paraffin embedded tissue block label led [id number] (A1, B1) from [facility] ? Fixative: ??Formalin ??(This immunohistochemical assay is intended for paraffin-embedded tissue fix ed in 10% neutral buffered formalin for 6-72 hours; 18-24 hours with maximum tis jorge thickness of 3-4 millimeters is recommended for best assay performance. ??He r2 should not be performed on alcohol fixed tissues.) The assay was performed under appropriate conditions a ccording to the [employer] merchant mill's instructions with appropriate assay and tissue controls using an Anti-Her2 (4B5) Rabbit Monoclonal Antibody ([place]). Her2 IHC Scoring Guidelines (invasive tumor component only) 0 ? negative ?No staining or membrane staining in less than 10% of cells 1+ ? negative ?Faint partial membrane staining in more than 10% of cells 2+ ? weakly positive ?Moderate complete membrane staining in more than 10% of cells 3+ ? positive ? Strong complete membrane staining in more than 10% of cells Reference: ??ASCO-CAP Recomm endations for Her2 Testing. J Clin Oncol 2013; epub (www.jco.org Aug 20, 2013) ? NOTE: ??One or more of the reagents used in imm unoperoxidase testing in this case may not have been cleared or approved by the U.S. Food and Drug Administration (FDA). ??The FDA has determined that such clearance or approval is not necessary. ??These tests are used for clinical purposes. ??They should not be regarded as investigational or for research. ??These r eagents' performance characteristics have been de termined by [facility] and/or by the referring labo carline. ??The positive and negative controls worked appropriately. If immunopero xidase staining has been performed on alcohol fixed cytology specimens, which has not been fully validated , the assays should be interpreted with caution and correlated with clinical data. ??This laboratory is certified under the Clinical Laboratory Improvement Amendments of 1988 (CLIA-88) as qualified to perform high complexity clinical labor atory testing. Document reviewed and electronically signed by: ? KAVITHA CAPELLAN MD PHD ? Report date: 03/05/2019 By the signature above, the attending physician certif ies that he/she has personally conducted a gross and/or microscopic examin ation of the described specimens and rendered or confirmed the above diagnosi s. End of Report Specimen Performing Organization Address City/State/ZIP Code Phon e Number [facility] [address] [place] [address] SERVICES documented in this encounter Visit Diagnoses Not on filedocumented in this encounter
--- OUTSIDE RECORDS SUMMARY | 2022-06-18 00:31 | XMS_ITS | Encounter Summary ---
:1950 Author Organization [facility] Address [address] [place] [address] Care Team Providers Name Role Phone Unavailable Primary Care Provider Unavailable Encounter Details Date Type Department Care Team Description 06/30/2010 Results Only [facility] Zoila Macedo, JANNY Laboratory Services - [address] [facility] [address] [phone] [place] [address] [phone] Social History Tobacco Use Types Packs/Day Years Used Date Never Assessed Sex Assigned at Date Recorded Not on file documented as of this encounter Plan of Treatment Not on filedocumented as of this encounter Procedures Procedure Name Priority Date/Time Associated Comments Diagnosis HPV DETECTION, HIGH Routine 06/30/2010 8:50 Resul ts for this RISK TYPES EDT procedure are i n the results section. CYTOPATHOLOGY Routine 06/30/2010 0:00 Results for this EDT procedure are i n the results section. documented in this encounter Results HUMAN PAPILLOMA VIRUS DNA TEST (06/30/2010 8:50 EDT) Specimen Description Cervix, ThinPrep [facility] vial Result Negative for HPV [facility] types 16, 18, 31, 33, 35, 39, 45, 51, 52, 56, 58, 59, and 68. Report Status Final [facility] 07/07/2010 Specimen Performing Organization Address City/State/ZIP Code Phon e Number [facility] [address] [place] [address] SERVICES [facility] [address] [place] [address] CYTOPATHOLOGY (06/30/2010 0:00 EDT) Pathology Report: CYTOPATHOLOGY REPORT ? [facility] ? LAB Reports generated via electr onic interface contain original data; ? however they are lacking the format of the original report. ? Caution should be taken when reading/interpreting unformatted reports. ? Name: ? NERY RUEDA ? Accession #: ? [id number] ? : ? 1950 (Age: 60) ??F ?Collect Date: ? 06/30/2010 ? Location: ? [facility] ? Receive Date: ? 07/02/2010 ? Provider: ?NERY L R OBINSON FORMAL WAITER/WAITRESS ? Copy to: ? Specimen/Source: ? Pap Test, Cervix/Endocervix, ThinPrep Imaging System ? with manual evaluation ? Last Menstrual Period: ? 1990 ? Other: ? HPVDX - HPV testing requeste d regardless of diagnosis on current ThinPrep Pap ?? test. ? SPECIMEN ADEQUACY ? Satisfactory for Eval uation ? - transformation zone compon ent present ? GENERAL CATEGORIZATION ? Negative for Intraepi thelial Lesion or Malignancy ? Document reviewed and electr onically signed by: ? Gallo Stumler, CT( CP) ? Report Date: ??08/20/ 2010 13:53 ? End of Report ? Specimen Performing Organization Address City/State/ZIP Code Phon e Number [facility] [address] [place] [address] SERVICES [facility] [address] [place] [address] documented in this encounter Visit Diagnoses Not on filedocumented in this encounter
--- OUTSIDE RECORDS SUMMARY | 2022-06-18 00:31 | XMS_ITS | Encounter Summary ---
:1950 Author Organization [facility] Address [address] [place] [address] Care Team Providers Name Role Phone Unavailable Primary Care Provider Unavailable Encounter Details Date Type Department Care Team Description 10/01/2004 Results Only [facility] - Jessica Alvarez son, Nery L, CRIMPING PRESS OPERATOR conversion [address] [place] [phone] (Wo rk) Social History Tobacco Use Types Packs/Day Years Used Date Never Assessed Sex Assigned at Date Recorded Not on file documented as of this encounter Plan of Treatment Not on filedocumented as of this encounter Procedures Procedure Name Priority Date/Time Associated Diagnosis Comme nts CYTOPATHOLOGY Routine 10/01/2004 0:00 EST Results for this procedure are i n the results section . documented in this encounter Results CYTOPATHOLOGY (10/01/2004 0:00 EST) Pathology Report: CYTOPATHOLOGY REPORT [facility] Reports generated via electronic interface contain gomez ginal data; however they are lacking the format of the original re port. Caution should be taken when reading/interpreting unfo rmatted reports. Name: ? NERY RUEDA ? Accession #: ? [id number] : ? 1950 (Age: 54) ??F ?Collect Date: ? 09/14 Location: ? [facility] ? Receive Date : ? 10/05/2004 Provider: ?NERY WHITMORE CRIMPING PRESS OPERATOR Copy to: ? Specimen/Source: ?ThinPrep Pap Test, Cervix Last Menstrual Period: ? SPECIMEN ADEQUACY ? Satisfactory for Evaluation - transformation zone component present GENERAL CATEGORIZATION ? Negative for Intraepithelial Lesion or Malignan cy ? Document reviewed and electronically signed by: ? TORREY Ferrer(ASCP) ? Report Date: ??10/13/2004 08:51 End of Report Specimen Performing Organization Address City/State/ZIP Code Phon e Number [facility] [address] [place] [address] SERVICES [facility] [address] [place] [address] documented in this encounter Visit Diagnoses Not on filedocumented in this encounter
--- OUTSIDE RECORDS SUMMARY | 2022-06-18 00:31 | XMS_ITS | Encounter Summary ---
:1950 Author Organization [facility] Address [address] [place] [address] Care Team Providers Name Role Phone Unavailable Primary Care Provider Unavailable Encounter Details Date Type Department Care Team Description 02/28/2019 Hospital Encounter [facility]- Nuria Unknown, Provider, [facility] [address] [facility] [phone] [place] [address] (Work) [phone] Social History Tobacco Use Types Packs/Day Years Used Date Never Assessed Sex Assigned at Date Recorded Not on file documented as of this encounter Discharge Disposition Disposition Code Departure Means Destination Home or Self Long Term documented in this encounter Plan of Treatment Not on filedocumented as of this encounter Visit Diagnoses Not on filedocumented in this encounter
--- OUTSIDE RECORDS SUMMARY | 2022-06-18 00:31 | XMS_ITS | Encounter Summary ---
:1950 Author Organization [facility] Address [address] [place] [address] Care Team Providers Name Role Phone Unavailable Primary Care Provider Unavailable Encounter Details Date Type Department Care Team Description 07/30/2003 Results Only [facility] - Jessica Alvarez son, Nery L, EMBOSSING MACHINE TENDER conversion [address] [place] [phone] (Wo rk) Social History Tobacco Use Types Packs/Day Years Used Date Never Assessed Sex Assigned at Date Recorded Not on file documented as of this encounter Plan of Treatment Not on filedocumented as of this encounter Procedures Procedure Name Priority Date/Time Associated Diagnosis Comme nts CYTOPATHOLOGY Routine 07/30/2003 0:00 EDT Results for this procedure are i n the results section . documented in this encounter Results CYTOPATHOLOGY (07/30/2003 0:00 EDT) Pathology Report: CYTOPATHOLOGY REPORT [facility] Reports generated via electronic interface contain gomez ginal data; however they are lacking the format of the original re port. Caution should be taken when reading/interpreting unfo rmatted reports. Name: ? NERY RUEDA ? Accession #: ? [id number] : ? 1950 (Age: 53) ??F ?Collect Date: ? 07/15 Location: ? [facility] ? Receive Date : ? 08/07/2003 Provider: ?NERY WHITMORE EMBOSSING MACHINE TENDER Copy to: ? Specimen/Source: ?ThinPrep Pap Test, Cervix/ Endocervix Last Menstrual Period: ? Unknown ? SPECIMEN ADEQUACY ? Satisfactory for Evaluation ? - transformation zone component present GENERAL CATEGORIZATION ? Negative for Intraepithelial Lesion or Malignan cy ? Document reviewed and electronically signed by: ? Maryanne Elaine, SCT(ASCP) ? Report Date: ??08/12/2003 07:16 End of Report Specimen Performing Organization Address City/State/ZIP Code Phon e Number [facility] [address] [place] [address] SERVICES [facility] [address] [place] [address] documented in this encounter Visit Diagnoses Not on filedocumented in this encounter
--- OUTSIDE RECORDS SUMMARY | 2022-06-18 00:31 | XMS_ITS | Encounter Summary ---
:1950 Author Organization [facility] Address [address] [place] [address] Care Team Providers Name Role Phone Unavailable Primary Care Provider Unavailable Encounter Details Date Type Department Care Team Description 10/05/2005 Results Only [facility] - Jessica Alvarez son, Nery L, FINISHER DENTURE conversion [address] [place] [phone] (Wo rk) Social History Tobacco Use Types Packs/Day Years Used Date Never Assessed Sex Assigned at Date Recorded Not on file documented as of this encounter Plan of Treatment Not on filedocumented as of this encounter Procedures Procedure Name Priority Date/Time Associated Diagnosis Comme nts CYTOPATHOLOGY Routine 10/05/2005 0:00 EST Results for this procedure are i n the results section . documented in this encounter Results CYTOPATHOLOGY (10/05/2005 0:00 EST) Pathology Report: CYTOPATHOLOGY REPORT [facility] Reports generated via electronic interface contain gomez ginal data; however they are lacking the format of the original re port. Caution should be taken when reading/interpreting unfo rmatted reports. Name: ? NERY RUEDA ? Accession #: ? [id number] : ? 1950 (Age: 55) ??F ?Collect Date: ? 09/15 Location: ? [facility] ? Receive Date : ? 10/08/2005 Provider: ?NERY WHITMORE FINISHER DENTURE Copy to: ? Specimen/Source: ? ThinPrep Pap Test, Cervix/Endocervix, processed on [employer] ThinPrep Imaging System, with manual evaluation Last Menstrual Period: ? Other: ? HPVA - HPV testing requested if ASC-US on the current ThinPrep Pap test. ? SPECIMEN ADEQUACY ? Satisfactory for Evaluation - transformation zone component present GENERAL CATEGORIZATION ? Negative for Intraepithelial Lesion or Malignan cy ? Document reviewed and electronically signed by: ? TORREY [place](ASCP) ? Report Date: ??10/13/2005 07:15 End of Report Specimen Performing Organization Address City/State/ZIP Code Phon e Number [facility] [address] [place] [address] SERVICES [facility] [address] [place] [address] documented in this encounter Visit Diagnoses Not on filedocumented in this encounter
--- OUTSIDE RECORDS SUMMARY | 2022-06-18 00:31 | XMS_ITS | Clinical Summary ---
:1950 Author Organization [facility] Address [address] [place] [address] Care Team Providers Name Role Phone Unknown, Provider Primary Care Provider Social History Tobacco Use Types Packs/Day Years Used Date Never Assessed Sex Assigned at Date Recorded Not on file Plan of Treatment Health Maintenance Due Date Last Done Comments Fall Risk Screening 2014 Care Teams Manager Employee Relations Relationship Specialty Start Date End Date Unknown, Provider, PCP - General 03/02/19
--- NOTE | 2022-06-18 11:34 | DI.DEXA_ITS ---
Exam(s) XR DEXA BONE DENSITY W/WO GARY EXAM: XR DEXA BONE DENSITY W/WO GARY CLINICAL HISTORY: screening with h/o breast cancer assoc tx,RESIDENTIAL USE AROMATASE TECHNIQUE: COMPARISON: DX DEXA BONE DENSITY WITH GARY from 07/08/2010 FINDINGS: Lateral Spine Image: Unremarkable. No compression deformities identified. Left hip: Total T-Score: 0.8. This compares to 1.4 on the prior examination. Total Z-Score: 2.5 T- and Z-scores: Within normal limits. Lumbar Spine: Total T-Score: 3.2. This compares to 2.9 on the prior examination. Total Z-Score: 5.5 T- and Z-scores: Within normal limits. IMPRESSION: No evidence of osteoporosis.
== END ==
PROVIDERS: PCP Nurse Practitioner Adult Health; Visit Provider Nurse Practitioner Adult Health
DX: Z13.820 Encounter for screening for osteoporosis (principal); C50.911 Malignant neoplasm of unspecified site of right female breast; Z79.811 Long term (current) use of aromatase inhibitors; Z78.0 Asymptomatic menopausal state
CPT/HCPCS: 77080

== ENCOUNTER → 2022-07-07 01:38 | Outpatient (CLI) | payer OTHER, SELFPAY ==
--- NOTE | 2022-07-07 06:45 | DI.NM_ITS ---
Exam(s) NM BONE SCAN WHOLE BDY W/SPECT EXAM: NM BONE SCAN WHOLE BDY W/SPECT CLINICAL HISTORY: NEW L2 radiculopathy w/ h/o abn L2 bone scan 2020,r94.8 TECHNIQUE: 26 millicuries IV technetium 99 MDP. Both conventional and fused SPECT imaging performed. COMPARISON: MR MR LUMBAR SPINE WO/W from 11/09/2019 CT,NM NM BONE SCAN WHOLE BODY GRP from 11/23/2019 CR XR DEXA BONE DENSITY W/WO GARY from 06/18/2022 FINDINGS: There is a significant focus of increased uptake now evident in the left 5th rib, without other areas of focal ipsilateral rib uptake and therefore this is suspicious for possible metastatic lesion in t he absence of recent trauma. There is no abnormal uptake seen in the opposite-right rib cage nor in the sternum. Previously described focus of increased uptake in the right-side of L2 vertebral body is actually les s evident on the present study. There is significant uptake seen at this space in the upper lumbosacral spine which is consistent wit h advanced disc space narrowing degenerative change at L1-2 level, as previously present. Uptake in the right knee and both feet consistent with degenerative changes. Also at the 1st carpomet acarpal joints of both wrists, also osteoarthritic/degenerative. IMPRESSION: 1. Compared to the prior nuclear study of 11/23/2019 the main new finding is a focus of abnormal acti vity in the lateral aspect of the left 5th rib, suspicious for possible metastatic lesion although a subacute healing rib fracture at this level might give similar appearance. There is, however, no foca l uptake seen in adjacent left-sided ribs (often multiple contiguous ribs are fractured). Next step r ecommend dedicated plain film series of the left rib cage which may add specificity. 2. Other findings described are most probably degenerative in nature.
== END ==
PROVIDERS: PCP Nurse Practitioner Adult Health; Visit Provider Nurse Practitioner Adult Health
DX: M54.16 Radiculopathy, lumbar region (principal); R94.8 Abnormal results of function studies of other organs and systems; Z85.3 Personal history of malignant neoplasm of breast; Z13.828 Encounter for screening for other musculoskeletal disorder
CPT/HCPCS: 78306; 78830

== ENCOUNTER → 2022-07-13 01:04 | Outpatient (CLI) | payer OTHER, SELFPAY ==
--- NOTE | 2022-07-13 07:30 | DI.RAD_ITS ---
Exam(s) XR RIBS LT W PA LAT CHEST EXAM: XR RIBS LT W PA LAT CHEST CLINICAL HISTORY: abnl activity lateral aspect of L ribs; assess, R94.8, on bone scan TECHNIQUE: COMPARISON: CR XR PORTABLE CHEST AP from 05/15/2019 CT,NM NM BONE SCAN WHOLE BDY W/SPECT from 07/07/2022 FINDINGS: PA and lateral chest and four views of the left ribs were obtained. Recent bone scan showed increase d uptake associated with left 5th rib. Radiographs show expansile left rib lesion laterally, this is not ideally visualized but may represent a healing pathologic fracture with some areas of internal s uspected lucency. No other rib lesion identified. Cardiac size within normal limits. Lungs are lyndsey ar and there is no pleural effusion. IMPRESSION: Indeterminate left rib lesion, suspicious for healing pathologic fracture. Please note that the over all pattern of abnormalities on recent bone scan is somewhat atypical for metastatic disease and the indeterminate rib lesion therefore does not necessarily represent malignancy. RADIATION DOSE DELIVERED: Total DLP
--- NOTE | 2022-07-13 10:48 | DI.MAMMO_ITS ---
Exam(s) MG MAMMO SCREENING 60 MIN DUR EXAM: MG MAMMO SCREENING 60 MIN DUR CLINICAL HISTORY: breast cancer screening, invasive ductal ca breast, Z79.811, C50.919 TECHNIQUE: Mammograms were interpreted according to the usual protocol including computer analysis w [facility] CAD system, tomosynthesis and C-view imaging. COMPARISON: FINDINGS: There has been a prior right mastectomy. No mass or clumped microcalcification identified in the lef t breast. No change in appearance comparison with previous examinations including June 2021. IMPRESSION: No specific evidence of malignancy at this time. Routine screening examinations are suggested at yea rly intervals due to the history of breast carcinoma. BI-RADS Category 1 - Negative Breast Density - Category B - Scattered areas of fibroglandular density
== END ==
PROVIDERS: PCP Nurse Practitioner Adult Health; Visit Provider Nurse Practitioner Adult Health
DX: Z12.31 Encounter for screening mammogram for malignant neoplasm of breast (principal); Z85.3 Personal history of malignant neoplasm of breast; Z90.11 Acquired absence of right breast and nipple; R93.7 Abnormal findings on diagnostic imaging of other parts of musculoskeletal system; Z79.811 Long term (current) use of aromatase inhibitors
CPT/HCPCS: 77063; 77067; 71046; 71100

== ENCOUNTER 2022-09-28 03:37 | Outpatient (CLI) | payer OTHER, SELFPAY ==
[2022-09-28 09:43] LABS: ALT 103 U/L (14-59); AST 132 U/L (15-37); Albumin 3.5 g/dL (3.4-5.0); Alkaline Phosphatase 278 U/L (46-116); Anion Gap 8.3 mmol/L (3-11); BUN 29 mg/dL (7-18); Bilirubin, Total 0.9 mg/dL (0.2-1.0); CO2 27.7 mmol/L (21.0-32.0); Calcium 9.5 mg/dL (8.5-10.1); Chloride 104 mmol/L (98-107); Estimated GFR 59.49 (mL/min/1.73m2); Glucose 85 mg/dL (74-106); Potassium 3.4 mmol/L (3.5-5.1); Sodium 140 mmol/L (136-145); Total Protein 7.4 g/dL (6.4-8.2)
== END 2022-09-28 03:38 | disposition home or self-care (01) ==
LOC: LBO 03:38
PROVIDERS: Nurse Practitioner Family; PCP Nurse Practitioner Adult Health; Visit Provider Internal Medicine
DX: C50.411 Malignant neoplasm of upper-outer quadrant of right female breast (principal); C77.3 Secondary and unspecified malignant neoplasm of axilla and upper limb lymph nodes; Z17.0 Estrogen receptor positive status [ER+]
CPT/HCPCS: 36415; 80053

== ENCOUNTER 2022-10-05 13:00 | Outpatient (CLI) | payer OTHER, SELFPAY ==
[2022-10-05 13:32] LABS: Abs Immature Grans 0.01 10^3/uL (0.0-0.06); Absolute Basophil Count 0.04 10^3/uL (0.0-0.2); Absolute Eosinophil Count 0.04 10^3/uL (0.0-0.7); Absolute Lymphocyte Count 1.31 10^3/uL (1.2-3.4); Absolute Monocyte Count 0.63 10^3/uL (0.1-0.8); Absolute Neutrophil Count 3.16 10^3/uL (1.2-6.7); Basophils % 0.8; Eosinophils % 0.8; HCT 39.5 % (36.0-46.0); HGB 13.2 g/dL (11.2-15.7); Immature Grans % 0.2; Lymphocytes % 25.2; MCH 32.5 pg (27.0-33.0); MCHC 33.4 % (32.0-36.0); MCV 97 fL (80-95); MPV 11.2 fL (8.0-11.0); Monocytes % 12.1; Neutrophils % 60.9; Platelet Count 170 10^3/uL (130-400); RBC 4.06 10^6/uL (3.93-5.22); RDW 13.8 % (11.7-14.6); RDW-SD 49.3 fL; WBC 5.19 10^3/uL (4.4-10.8)
[2022-10-05 13:49] LABS: ALT 111 U/L (14-59); AST 156 U/L (15-37); Albumin 3.5 g/dL (3.4-5.0); Alkaline Phosphatase 269 U/L (46-116); Anion Gap 12.6 mmol/L (3-11); BUN 31 mg/dL (7-18); CO2 24.4 mmol/L (21.0-32.0); CREATININE 1.1 mg/dL (0.55-1.02); Calcium 9.4 mg/dL (8.5-10.1); Chloride 104 mmol/L (98-107); Estimated GFR 53.06 (mL/min/1.73m2); Glucose 81 mg/dL (74-106); Potassium 3.4 mmol/L (3.5-5.1); Sodium 141 mmol/L (136-145); Total Protein 7.1 g/dL (6.4-8.2)
== END 2022-10-05 13:01 | disposition home or self-care (01) ==
LOC: LBO 13:04
PROVIDERS: PCP Nurse Practitioner Adult Health; Visit Provider Nurse Practitioner Adult Health
DX: C50.411 Malignant neoplasm of upper-outer quadrant of right female breast (principal); C77.3 Secondary and unspecified malignant neoplasm of axilla and upper limb lymph nodes; R10.10 Upper abdominal pain, unspecified; R11.0 Nausea; N89.8 Other specified noninflammatory disorders of vagina
CPT/HCPCS: 36415; 80053; 85025

== ENCOUNTER 2022-10-06 06:02 | Emergency (ER) | payer OTHER, SELFPAY ==
[2022-10-06] VITALS (29 sets, daily range): BP systolic 140–167; BP diastolic 67–89; PULSE 72–102; RESP 12–27; TEMP 36.5; O2SAT 96–100
[2022-10-06 06:53] LABS: Absolute Basophil Count 0.04 10^3/uL (0.0-0.2); Absolute Eosinophil Count 0.06 10^3/uL (0.0-0.7); Absolute Lymphocyte Count 0.94 10^3/uL (1.2-3.4); Absolute Monocyte Count 0.51 10^3/uL (0.1-0.8); Absolute Neutrophil Count 2.94 10^3/uL (1.2-6.7); Basophils % 0.9; Eosinophils % 1.3; HCT 40.3 % (36.0-46.0); HGB 13.2 g/dL (11.2-15.7); Lymphocytes % 20.9; MCH 32.2 pg (27.0-33.0); MCHC 32.8 % (32.0-36.0); MCV 98 fL (80-95); MPV 10.9 fL (8.0-11.0); Monocytes % 11.4; Neutrophils % 65.5; Platelet Count 159 10^3/uL (130-400); RDW 13.7 % (11.7-14.6); RDW-SD 50.4 fL; WBC 4.49 10^3/uL (4.4-10.8)
--- NOTE | 2022-10-06 06:54 | W.ED.GENAD ---
Discharge Plan Disposition Patient Disposition: Home Condition: Stable Discharge Details Clinical Impression: Liver metastases, Metastatic cancer to spine, Atypical endometrial hyperplasia Primary Care Provider: Mary Chinchilla ED Provider: Donny Mcgowan Home Meds and New Rx's Prescriptions: No Action Lumigan 0.01 % drops 1 drp OP QPM brimonidine-timolol [Combigan] 0.2-0.5 % drops 1 drp OP QAM vitamin B complex Tablet 1 tab PO DAILY ascorbic acid (vitamin C) 1,000 mg tablet 1 g PO DAILY breast prosthesis and bras 1 unit EXT DAILY Qty: 1 0RF Rx Instructions: dispense one weighted breast prosthesis, right and 3 bras s/p R mastectomy, breast CA Z90.11, C50.911 gabapentin 100 mg capsule 100 mg PO BID Qty: 180 3RF Rx Instructions: R thigh radicular lumbar spine pain (L2) methocarbamol 500 mg tablet 500 - 1,000 mg PO TID PRN (Reason: muscle spasm) Qty: 40 0RF Rx Instructions: Back muscle spasm irbesartan-hydrochlorothiazide 150-12.5 mg tablet 1 tab PO .daily in AM Qty: 90 3RF Rx Instructions: BP letrozole [Femara] 2.5 mg tablet 2.5 mg PO DAILY potassium chloride 10 mEq tablet,ER particles/crystals 10 meq PO DAILY Rx Instructions: [place]08[place] [facility] [place] [facility] (DME) Foot Care and Nail Trim See Rx Instructions .Route .MEDSUPPLY Qty: 1 0RF Rx Instructions: PRN for 1 year (07/26/2022) Thank you. ibuprofen 600 mg tablet 600 mg PO TID-QID PRN (Reason: pain (s) Qty: 60 4RF multivitamin Capsule 1 cap PO DAILY Discharge Instructions Instructions: Endometrial Biopsy (DC), Bone Metastasis (ED) Additional Instructions: Please follow-up closely with your oncologist to be scheduled for next week. Please follow-up with women's health to discuss endometrial thickening and vaginal discharge. Please return to the emergency department for any needs Discharge Data Discharge Date/Time-TO BE ENTERED AT DEPARTURE: 10/06/22 14:58 Medical Decision Making <Ainsley Hansen DO - Last Filed: 10/07/22 05:24> Dr. Hansen 0630 -- 72-year-old female with history of breast cancer with right sided mastectomy with lymph node metastasis presents for CT chest abdomen pelvis per Dr. Smart for right-sided abdominal pain for several months with recently uptrending liver enzymes. Blood pressure moderately elevated. Remainder of vitals within normal limits. Patient appears comfortable and nontoxic. Her abdomen is soft and tender in the right upper quadrant. She has no rebound, rigidity or guarding. Screening labs obtained on arrival. We will also obtain urinalysis and CT chest abdomen and pelvis with p.o. and IV contrast ordered per outpatient recommendations. Patient is declining pain medication at this time. Patient also endorsed right thigh pain since March 2022 worse with sitting. Denies cauda equina symptoms. Considering chronic nature of symptoms and lack of calf pain, DVT appears less likely. Patient is wearing pants, will undress and evaluate lower extremity but she has no obvious focal deficits and is otherwise neurovascularly intact. 0800 --Case endorsed to Dr. Mcgowan to follow-up on labs and imaging and final disposition. Dr. Mcgowan 1: 35 evidence of metastatic disease to liver and mets to L-spine, have discussed case with patient's primary oncologist with scheduled follow-up appointment this coming Tuesday to begin discussion of treatment options. Awaiting callback from [facility] spine/orthopedic surgery to discuss pathologic fracture of L2 spine. Patient has minimal discomfort and paresthesia in the L2 dermatome of her right lower extremity, no issues ambulating no bowel or bladder issues no recent fall/trauma. Patient has been dealing with chronic scant brown vaginal discharge over the past several weeks to months, does have a family history of ovarian cancer, will perform pelvic ultrasound as well as pelvic examination. 2: 22 evidence of thickening of endometrial stripe on ultrasound; normal pelvic examination without discharge or bleeding. Vaginal pathogen swab has been sent to the lab. Patient be given follow-up with women's health for further evaluation of endometrial hypertrophy. Patient resting comfortably hemodynamically stable comfortable. Neurologically intact. Will follow with primary oncologist. Dr. Herring's orthopedic team at [facility] does not see an indication for surgical intervention at this time for spinal lesion, recommending follow-up with primary oncologic team for further imaging and treatment. However if patient were to develop worsening pain or neurologic symptoms orthopedic intervention would be reconsidered. Medical Records Medical records reviewed: Yes I reviewed the patient's medical records. <Donny Mcgowan MD - Last Filed: 10/06/22 14:28> 0630 -- 72-year-old female with history of breast cancer with right sided mastectomy with lymph node metastasis presents for CT chest abdomen pelvis per Dr. Smart for right-sided abdominal pain for several months with recently uptrending liver enzymes. Elevated. Remainder of vitals within normal limits. Patient appears comfortable and nontoxic. Her abdomen is soft and tender in the right upper quadrant. She has no rebound, rigidity or guarding. Screening labs obtained on arrival. We will also obtain urinalysis and CT chest abdomen and pelvis with p.o. and IV contrast ordered per outpatient recommendations. Patient is declining pain medication at this time. 0800 --Case endorsed to Dr. Mcgowan to follow-up on labs and imaging and final disposition. 1: 35 evidence of metastatic disease to liver and mets to L-spine, have discussed case with patient's primary oncologist with scheduled follow-up appointment this coming Tuesday to begin discussion of treatment options. Awaiting callback from [facility] spine/orthopedic surgery to discuss pathologic fracture of L2 spine. Patient has minimal discomfort and paresthesia in the L2 dermatome of her right lower extremity, no issues ambulating no bowel or bladder issues no recent fall/trauma. Patient has been dealing with chronic scant brown vaginal discharge over the past several weeks to months, does have a family history of ovarian cancer, will perform pelvic ultrasound as well as pelvic examination. 2: 22 evidence of thickening of endometrial stripe on ultrasound; normal pelvic examination without discharge or bleeding. Vaginal pathogen swab has been sent to the lab. Patient be given follow-up with women's health for further evaluation of endometrial hypertrophy. Patient resting comfortably hemodynamically stable comfortable. Neurologically intact. Will follow with primary oncologist. Dr. Herring's orthopedic team at [facility] does not see an indication for surgical intervention at this time for spinal lesion, recommending follow-up with primary oncologic team for further imaging and treatment. However if patient were to develop worsening pain or neurologic symptoms orthopedic intervention would be reconsidered. Sign Out No HPI <Ainsley Hansen DO - Last Filed: 10/07/22 05:24> General Mode of arrival: ambulatory. Date/Time Provider Initiated Documentation: 10/06/22 06:27. Limitations to Documentation: no limitations. Information obtained by: patient. HPI Narrative: Patient is a 72-year-old female with a history of breast cancer with metastasis to lymph nodes, hypertension, hyperlipidemia, hypothyroidism, right-sided mastectomy, appendectomy, tubal ligation presents for CT chest abdomen pelvis per Dr. Smart for right-sided abdominal pain for several months and uptrending liver enzymes. She also endorses right side pain since March 2022 that is usually worse with sitting but better with walking and standing. Patient describes her right-sided abdominal pain as intermittent and burning. She states the pain is 8/10 at its worst and is currently 4/10. She last took ibuprofen at noon yesterday. She was advised to hold her letrozole and Tylenol secondary to the transaminitis. She states she last ate at 5 PM last night and denies any vomiting or diarrhea. She does admit to urinary urgency at times but denies any dysuria or hematuria. She denies fever, chest pain, difficulty breathing. Patient also endorsed that she has had right-sided leg pain extending from her hip down to her knee since March 2022. She states she has spoke to her primary care doctor regarding this and not given a specific diagnosis. She states the pain is usually worse with sitting and better when she is walking. She denies any right calf pain. She denies any known injury or significant pain in her lower back. Related Data Home Medications Medication Instructions Recorded Confirmed bimatoprost 0.01 % eye drops 1 drp ophthalmic (eye) QPM 02/09/19 10/06/22 (Lumigan) brimonidine 0.2 %-timolol 0.5 % 1 drp ophthalmic (eye) QAM 02/09/19 10/06/22 eye drops (Combigan) ibuprofen 600 mg tablet 600 mg PO TID-QID PRN pain (s #60 04/05/19 10/06/22 tabs multivitamin 1 cap PO DAILY 05/10/19 10/06/22 letrozole 2.5 mg tablet (Femara) 2.5 mg PO DAILY 10/06/20 10/06/22 potassium chloride 10 mEq 10 meq PO DAILY 04/08/21 10/06/22 tablet,extended release(part/cryst) ascorbic acid (vitamin C) 1,000 mg 1 g PO DAILY 06/01/21 10/06/22 tablet breast prosthesis and bras 1 unit EXT DAILY #1 unit 06/01/21 10/06/22 vitamin B complex 1 tab PO DAILY 06/01/21 10/06/22 irbesartan 150 1 tab PO .daily in AM HTN #90 tabs 06/11/22 10/06/22 mg-hydrochlorothiazide 12.5 mg tablet Foot Care and Nail Trim #1 ea 07/26/22 10/06/22 gabapentin 100 mg capsule 100 mg PO BID neuropathic pain 07/30/22 10/06/22 #180 caps methocarbamol 500 mg tablet 500 - 1,000 mg PO TID PRN muscle 07/30/22 10/06/22 spasm #40 tabs Previous Rx's Medication Instructions Recorded ibuprofen 600 mg tablet 600 mg PO TID-QID PRN pain (s #60 04/05/19 tabs breast prosthesis and bras 1 unit EXT DAILY #1 unit 06/01/21 irbesartan 150 1 tab PO .daily in AM HTN #90 tabs 06/11/22 mg-hydrochlorothiazide 12.5 mg tablet Foot Care and Nail Trim #1 ea 07/26/22 gabapentin 100 mg capsule 100 mg PO BID neuropathic pain 07/30/22 #180 caps methocarbamol 500 mg tablet 500 - 1,000 mg PO TID PRN muscle 07/30/22 spasm #40 tabs Allergies Allergy/AdvReac Type Severity Reaction Status Date / Time No Known Allergies Allergy Verified 10/06/22 06:22 General Stated Complaint: Abd Prob YANETH: 3 Review of Systems <Ainsley Hansen DO - Last Filed: 10/07/22 05:24> All systems reviewed & are unremarkable except as noted in HPI and below Constitutional Constitutional: Reports as per HPI, Denies chills and Denies fever(s) Eyes Eyes: Denies blurry vision ENT Ears, Nose, Mouth, and Throat: Denies dizziness, Denies sore throat and Denies throat swelling Cardiovascular Cardiovascular: Denies chest pain and Denies dyspnea Respiratory Respiratory: Denies cough and Denies dyspnea Gastrointestinal Gastrointestinal: Reports abdominal pain, Denies diarrhea and Denies vomiting Genitourinary Genitourinary: Denies hematuria and Denies dysuria Musculoskeletal Musculoskeletal: Denies back pain and Denies numbness Comments: R leg pain Integumentary/Breasts Skin/Breast: Denies lesions and Denies rash Neurologic Neurologic: Denies dizziness, Denies localized weakness and Denies numbness Allergic/Immunologic Allergic/Immunologic: Denies throat swelling PFSH <Ainsley Hansen, - Last Filed: 10/07/22 05:24> All Active Problems (Updated 10/06/22 @ 14:28 by Donny Mcgowan MD) Liver metastases (Acute) Metastatic cancer to spine (Acute) Atypical endometrial hyperplasia (Acute) 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 (Acute) Abnormal radionuclide bone scan (Acute ~06/2022) L rib Lumbar radiculopathy (Acute ~2021) R ant thigh following L2; degenerative disease on bone scan Right thigh pain (Acute) [facility] current use of aromatase inhibitor (Chronic) [facility] [place] Peripheral polyneuropathy (Chronic) [place] [facility] [place] Osteoarthritis of right knee (Chronic) x-ray 2018 Ortho referral 04/2020 Glaucoma (Chronic) Yasemin Essential hypertension (Chronic 02/13/16) Dx'ed 2015 HCTZ HCTZ-Irbesartan 05/2021 Family history of coronary artery disease (Chronic 10/07/14) Son with PR and stents x3 at 37yo Hyperlipidemia (Chronic 09/14/12) Total 224; LDL 137 Subclinical hypothyroidism (Chronic 09/25/13) 2010 elevated TSH, normal FT4 2012 normalized Medical History Abnormal bone scan of lumbar spine (~11/2019) L2; F/U study 2021 shows degenerative changes without concern for metastatic disease Chemotherapy-induced neuropathy Hands Encounter for central line placement (~05/15/19) PORT (chemo) Invasive ductal carcinoma of breast (~04/04/19) s/p R breast maste[place] [facility] [place]05/2019 chemo, rad tx 11/20/2019 [facility] Onc _Dr Valdes 12/18/19 F/U w [place] Rae [place] [place] S/P [place] [facility] [place]21 Breast 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, 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 heart related. (didn't wake up one morning) Heart disease Alcohol abuse Coronary artery disease Brother Alcohol abuse Coronary artery disease Maternal Grandfather Alcohol abuse Coronary artery disease Son Alcohol abuse Coronary artery disease Myocardial infarction Sister Hypertension Paternal Grandmother Stroke Paternal Grandfather Stroke Other Family history of coronary artery disease Social History Smoking/Tobacco Use Status: Never Smoking risk assessment performed?: Yes Alcohol Intake: current Alcohol Intake frequency: holidays/special occasions only Drug use: Never Substance use type: does not use Adopted: No Caregiver/Support person: No Foster care: No Household members: spouse and family Housing: house Number of Children: 3 number of grandchildren: 9 Communication Needs: None Education Level: master's degree Do you need help understanding health information?: Rarely 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, [employer]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[employer] Pets and animals: Yes (2 cats and dog) Sexually active: No Do you think of yourself as: straight/heterosexual Current gender identity: female What is your relationship status?: How often do you talk on the phone with friends or family?: three or more times per week How often do you get together with friends or relatives?: three or more times per week How often do you attend worship or scientologist services?: 4 or more times per year Do you belong to any clubs or organized social groups?: yes Panel score (0-1 are the most socially isolated patients): 4 What type of physical activity do you participate in: walking Duration: 15-30 minutes/day Frequency: 1-2 times per week Nemo/Scientologist: Sikhism Special nemo needs: No Seatbelt use: always Helmet use: No Drive intox or ride w/intox tank wagon driver: No Do you feel safe at home: Yes Do you feel safe in your relationship?: Yes Exam <Ainsley Hansen DO - Last Filed: 10/07/22 05:24> Const General: cooperative and no acute distress Orientation: alert, awake and oriented x3 HENMT Head: normal to inspection Face and sinus: normal facial exam Eyes General: appearance normal, both eyes and all related structures Pupils: PERRL EOM: EOM intact bilaterally Neck Neck: normal visual inspection and No submandibular swelling Lymphatic: no lymphadenopathy noted Chest Chest: normal inspection of the chest and no tenderness Resp Effort & Inspection: normal respiratory effort and able to speak in complete sentences Auscultation: clear to auscultation bilaterally Cardio Rate: regular rate Rhythm: regular rhythm GI Inspection: normal to inspection Palpation: soft, not firm, not rigid and tender in the RUQ Auscultation: hypoactive bowel sounds Back/Spine/Pelvis Thoracic/Lumbar Spine: thoracic and lumbar spine normal to inspection Pelvis: no pain with anterior-posterior compression Skin General skin exam: no rashes or lesions noted Neuro General: patient alert, patient awake and patient oriented x3 Cognition: normal cognition Speech: speech normal Motor: muscle tone normal throughout Sensory Exam: no sensory deficits noted Extrem General: normal to inspection, full ROM, capillary refill normal, no calf tenderness bilaterally and no edema Psych Appearance: grossly normal Mental Status: mental status grossly normal Speech and Movement: speech and movement normal Affect: normal affect Course <DO Manuel Sorto Last Filed: 10/07/22 05:24> Vital Signs Vital signs: Vital Signs Temperature 97.7 F 10/06/22 06:18 Pulse 78 10/06/22 06:18 Respiratory Rate 16 10/06/22 06:18 Blood Pressure 152/85 H 10/06/22 06:18 Pulse Oximetry 98 10/06/22 06:18 Temperature 97.7 F 10/06/22 06:18 Temperature Source Temporal Artery Scan 10/06/22 06:18 Pulse 78 10/06/22 06:18 Respiratory Rate 16 10/06/22 06:18 Respiratory Effort 10/06/22 06:18 Blood Pressure 152/85 H 10/06/22 06:18 Blood Pressure Position Supine 10/06/22 06:18 Pulse Oximetry 98 10/06/22 06:18 Oxygen Delivery Method Room Air 10/06/22 06:18 Oxygen Flow Rate 0 10/06/22 06:18 Pain Level 4 10/06/22 06:18 Sign Out <DO Manuel Sorto Last Filed: 10/07/22 05:24> Sign Out Data: Sign Out Comment: History of breast cancer with lymph node metastasis. Had outpatient CT chest abdomen and pelvis ordered for 10/14. Her oncologist Dr. Smart sent her here for this CT scan today for uptrending liver enzymes. She has had right-sided abdominal pain for several months and right leg pain since March 2022. Follow-up on CT scan results and final disposition. Last updated by Ainsley Hansen DO at 10/06/22 07:26
[2022-10-06 07:21] LABS: ALT 125 U/L (14-59); AST 177 U/L (15-37); Albumin 3.6 g/dL (3.4-5.0); Alkaline Phosphatase 292 U/L (46-116); Anion Gap 11.7 mmol/L (3-11); BUN 28 mg/dL (7-18); Bilirubin, Total 1.3 mg/dL (0.2-1.0); CO2 27.3 mmol/L (21.0-32.0); CREATININE 1.2 mg/dL (0.55-1.02); Calcium 9.7 mg/dL (8.5-10.1); Chloride 103 mmol/L (98-107); Glucose 85 mg/dL (74-106); Lipase 209 U/L (73-393); Sodium 142 mmol/L (136-145); Total Protein 7.5 g/dL (6.4-8.2)
[2022-10-06 07:36] LABS: Bilirubin Negative (Negative); Blood Trace-intact (Negative); Clarity Clear (Clear); Glucose Negative (Negative); Ketones Negative (Negative); Leukocyte Esterase Negative (Negative); Nitrite Negative (Negative)
[2022-10-06] MEDS: Normal Saline 1,000 ML 150 ML IV (07:38)
[2022-10-06 07:44] LABS: Bacteria Negative HPF (Negative); C & S Indicated? No; Casts Negative LPF (Negative); Crystals Negative HPF (Negative); Epithelial Cells Rare HPF (Negative); Mucus Negative (Negative); RBC 0-2 HPF (0-2); WBC Negative HPF (0-5)
--- NOTE | 2022-10-06 07:45 | RT.EKG_ITS ---
APPROVED REPORT Exam: Resting ECG Reason for Exam: abdominal pain Patient Location: E HR:74 bpm ECG Measurements Heart Rate 74 AXIS TX 199 P 48 QRSd 88 QRS -43 QT 395 T 9 QTc 437 Conclusion Sinus rhythm...normal P axis, V-rate 60- 99 Inferior infarct, old...Q >35mS, II III aVF Consider anterior infarct...Q >30mS in V2-V5 sinus rhythm, left axis, normal inervals, non ischemic
[2022-10-06] MEDS: Omnipaque 350 MG/ML 500 ML BTL-Imaging package IJ (09:08)
[2022-10-06] MEDS: Normal Saline - Diluent 50 ML VIAL IJ (09:10)
[2022-10-06] MEDS: Normal Saline Flush 10 ML SYR IVP (09:11)
[2022-10-06] MEDS: Barium Sulfate 2% W/V-Berry Smoothie 450 ML BTL PO (09:11)
--- NOTE | 2022-10-06 09:15 | DI.CT_ITS ---
Exam(s) CT CHEST PE ABD PELVIS W EXAM: CT CHEST PE ABD PELVIS W CLINICAL HISTORY: R side pain,high liver enzymes,r/o acute process. TECHNIQUE: Imaging Protocol: Axial CT angiography was performed with multi-slice acquisition and mu lti-planar and/or 3D reconstructions. CONTRAST MATERIAL: Intravenous: Omnipaque 350contrast volume:100 mL COMPARISON: CT,NM NM BONE SCAN WHOLE BODY GRP from 11/23/2019 CT,AR NM BONE SCAN WHOLE BDY W/SPECT from 07/07/2022 FINDINGS: CHEST: Tracheobronchial tree: Patent where visualized. Pulmonary parenchyma: No consolidation or dominant measurable mass. No architectural distortion. Atel ectasis is seen in the lung bases. Pulmonary Arteries: No evidence of filling defect to suggest pulmonary emboli. Mediastinum and Malina: No dominant adenopathy or fluid collection. The esophagus is unremarkable. Visualized thyroid gland: Unremarkable. Pleura: No effusion or pneumothorax. Heart: The heart is not dilated. Coronary artery calcifications are present. No pericardial effusion . Aorta: Thoracic aorta non-dilated. No evidence of dissection. Atherosclerosis is present. Bones: There is osseous metastatic disease involving the spine and ribs. Soft tissues: The patient is status post right mastectomy. There is again seen an encapsulated fluid collection along the right anterior chest wall. It is similar in size compared to the bone SPECT sc an from 07/07/2022. ABDOMEN: Liver: Normal density. There are numerous hepatic metastases involving the majority of the hepatic pa renchyma. There is significant coalescence of the metastases. The largest discrete area is seen in the medial aspect of the right lobe and measures at least 8.4 x 6.9 cm. Portal, Superior Mesenteric, and Splenic Veins: Unremarkable. Gallbladder and Biliary Tract: No radiodense calculus or dilation. Pancreas: Normal density, no abnormal calcifications or inflammatory process. Spleen: Normal. Adrenals: No masses seen. Kidneys: Normal size, contour and axis. No radiodense stones or obstructive uropathy. No masses seen. Abdominal Aorta: Abdominal portion non-dilated. Atherosclerosis is present. Bowel: No obstruction or bowel wall thickening. There is no evidence of appendicitis. There is diver ticulosis in the sigmoid colon, but no evidence of acute diverticulitis. Peritoneal Cavity: No ascites, collection or mesenteric inflammatory response. No free air. Lymph Nodes: Within normal limits. Bones: There is osseous metastatic disease present. There is a pathologic fracture of the right pedi lyndsey of L2. There is also loss of height of the L2 vertebral body. There is soft tissue extension in to the spinal canal and right neural foramen. This causes marked right neural foraminal stenosis and mild central spinal canal stenosis. Soft Tissues: There is a small fat containing umbilical hernia. PELVIS: Bladder: Symmetric distention, no gross wall thickening. Reproductive Organs: There is a calcified mass in the uterus likely reflecting a fibroid. Lymph Nodes: Within normal limits. Bones: Within normal limits. IMPRESSION: 1. No evidence pulmonary embolism, thoracic aortic dissection or aneurysm. 2. Osseous metastatic disease including an L2 vertebral metastasis with associated pathologic fractur e and soft tissue component which is causing marked right neural foraminal stenosis and mild central spinal canal stenosis. 3. Marked hepatic metastatic disease. 4. Status post right mastectomy with a stable subcutaneous fluid collection along the right chest wal l. 5. Findings were discussed with Dr. Mcgowan at 10:23 a.m. on 10/06/2022. RADIATION DOSE DELIVERED: Total DLP DATA REPOSITORY: All CT scans at this facility are submitted to the National Radiology Data Registry (NRDR) Dose Index Registry (DIR) with the [employer] (ACR). RADIATION OPTIMIZATION: All CT scans at this facility use at least one of these dose optimization te chniques: automated exposure control; mA and/or kV adjustment per patient size (includes targeted exa ms where dose is matched to clinical indication); or iterative reconstruction.
[2022-10-06] MEDS: POTASSIUM CHLORIDE 20 MEQ/100 ML BAG 50 MEQ IVPB (09:35)
--- NOTE | 2022-10-06 11:50 | DI.US_ITS ---
Exam(s) US PELVIS TRANSVAGINAL EXAM: US PELVIS TRANSVAGINAL CLINICAL HISTORY: metastatic CA (breast?); vag dis fam hx ovar CA. TECHNIQUE: Transabdominal and transvaginal pelvic ultrasound was performed using standard protocol. COMPARISON: No exams were available for comparison FINDINGS: KIDNEYS: Limited renal evaluation is unremarkable. UTERUS: Position: Anteverted. Size: 6.2 long by 3.5 AP by 5.2 transverse cm Endometrium: 0.8 cm. Thickened and heterogeneous in this postmenopausal patient. Myometrium: There is a calcified mass in the fundus corresponding to the the findings on the CT scan. This likely reflects a calcified uterine fibroid. Cervix: There is a cervical nabothian cyst. OVARIES: The ovaries were not visualized on this examination. No suspicious adnexal masses are seen. CUL-DE-SAC: Free fluid: None. Other: Incidental note is again made of multiple hepatic masses consistent with the patient's known m etastatic disease. IMPRESSION: 1. Limited evaluation of the kidneys is unremarkable. 2. Thickened heterogeneous endometrial stripe in this postmenopausal patient. Differential considera tions include neoplasm, hypertrophy or possible polyp. Please correlate with the patient's hormonal status. Gynecologic consult should be considered. 3. Findings were discussed with Dr. Mcgowan at 2:05 p.m. on 10/06/2022. DATA REPOSITORY:
--- NOTE | 2022-10-07 09:21 | NUR.NOTE ---
Nursing Note: REFERRAL TO CM TO SET UP [facility]OM[facility]LL[facility] APPOINTMENT
== END 2022-10-06 14:58 | disposition home or self-care (01) ==
PROVIDERS: Physician Assistant; Emergency Provider Emergency Medicine; PCP Nurse Practitioner Adult Health
DX: N85.00 Endometrial hyperplasia, unspecified (principal); C78.7 Secondary malignant neoplasm of liver and intrahepatic bile duct; C79.49 Secondary malignant neoplasm of other parts of nervous system; C77.9 Secondary and unspecified malignant neoplasm of lymph node, unspecified; I10 Essential (primary) hypertension; E03.9 Hypothyroidism, unspecified; E78.5 Hyperlipidemia, unspecified; Z98.51 Tubal ligation status; Z85.3 Personal history of malignant neoplasm of breast; Z90.11 Acquired absence of right breast and nipple; Z90.49 Acquired absence of other specified parts of digestive tract; Z92.21 Personal history of antineoplastic chemotherapy
CPT/HCPCS: 36415; 71275; 74177; 80053; 83690; 93005; 96360; 96361; 99285; 76830; 76856; 81003; 81015; 85025; 87480; 87510; 87660; 93010; J3480

== ENCOUNTER 2022-10-09 21:34 | Observation (INO) | payer OTHER, SELFPAY ==
[2022-10-09] VITALS (18 sets, daily range): BP systolic 132–169; BP diastolic 62–82; PULSE 75–97; RESP 10–92; O2SAT 81–98
--- NOTE | 2022-10-09 21:30 | DI.CT_ITS ---
Exam(s) CT CERVICAL SPINE WO EXAM: CT CERVICAL SPINE WO CLINICAL HISTORY: met ca to bone, shoulder pain. TECHNIQUE: Imaging Protocol: Axial computed tomography images with coronal and sagittal reformatted images were created and reviewed CONTRAST MATERIAL: Noncontrast COMPARISON: No exams were available for comparison FINDINGS: Bones: No fracture or dislocations are seen. The alignment of the cervical spine is normal including the cervicovertebral junction and cervicothoracic junction. There are abnormally increased areas of sclerosis consistent with patient's history of metastatic disease. Soft Tissues: The soft tissues of the neck are unremarkable. There are degenerative disc changes fro m C4-5 through C6-7. No large disk herniations are identified. The visualized portions of the lung a pices are clear. No pneumothorax is seen. IMPRESSION: Sclerotic bony metastases and degenerative changes. No pathologic fracture. RADIATION DOSE DELIVERED: 503.81mGy.cm Total DLP DATA REPOSITORY: All CT scans at this facility are submitted to the National Radiology Data Registry (NRDR) Dose Index Registry (DIR) with the [employer] (ACR). RADIATION OPTIMIZATION: All CT scans at this facility use at least one of these dose optimization te chniques: automated exposure control; mA and/or kV adjustment per patient size (includes targeted exa ms where dose is matched to clinical indication); or iterative reconstruction.
--- NOTE | 2022-10-09 21:44 | DI.RAD_ITS ---
Exam(s) XR SHOULDER RT COMPLETE 2+V EXAM: XR SHOULDER RT COMPLETE 2+V CLINICAL HISTORY: atraumatic right shoulder pain. TECHNIQUE: 2D digital imaging was performed. Five views. COMPARISON: No exams were available for comparison FINDINGS: BONES: No acute fracture is present. No bony destructive lesion is seen. JOINTS: No dislocation present. Spurring at AC joint and greater tuberosity. Mild spurring at gleno id. Glenohumeral joint space is maintained. SOFT TISSUE: Normal. IMPRESSION: Degenerative changes. DATA REPOSITORY: RADIATION DOSE DELIVERED:
--- NOTE | 2022-10-09 21:44 | DI.RAD_ITS ---
Exam(s) XR CHEST 1V IN DI DEPT EXAM: XR CHEST 1V IN DI DEPT CLINICAL HISTORY: right shoulder pain, hx of met ca to liver TECHNIQUE: 2D digital imaging was performed. COMPARISON: CT CT CHEST PE ABD PELVIS W from 10/06/2022 FINDINGS: LUNGS: Suboptimally inflated but grossly clear. No pleural abnormality seen. HEART: Normal. AORTA: Normal. BONES: Unremarkable for age. Soft tissues: Unremarkable. IMPRESSION: No acute findings. DATA REPOSITORY: RADIATION DOSE DELIVERED:
--- NOTE | 2022-10-09 21:45 | RT.EKG_ITS ---
APPROVED REPORT Exam: Resting ECG Reason for Exam: shoulder pain Patient Location: E HR:81 bpm ECG Measurements Heart Rate 81 AXIS FL 190 P 51 QRSd 88 QRS -37 QT 385 T 17 QTc 446 Conclusion Sinus rhythm...normal P axis, V-rate 60- 99 Inferior infarct, old...Q >35mS, II III aVF sinus rhtyhm, left axis, normal intervals
--- NOTE | 2022-10-09 21:55 | W.ED.GENAD ---
Discharge Plan Disposition Patient Disposition: Admit to [facility] Condition: Stable Discharge Details Chief Complaint: GenMedical Clinical Impression: Intractable pain, Metastatic cancer to spine Primary Care Provider: Mary Chinchilla ED Provider: Donny Mcgowan Home Meds and New Rx's Prescriptions: No Action Lumigan 0.01 % drops 1 drp OP QPM brimonidine-timolol [Combigan] 0.2-0.5 % drops 1 drp OP QAM vitamin B complex Tablet 1 tab PO DAILY ascorbic acid (vitamin C) 1,000 mg tablet 1 g PO DAILY breast prosthesis and bras 1 unit EXT DAILY Qty: 1 0RF Rx Instructions: dispense one weighted breast prosthesis, right and 3 bras s/p R mastectomy, breast CA Z90.11, C50.911 gabapentin 100 mg capsule 100 mg PO BID Qty: 180 3RF Rx Instructions: R thigh radicular lumbar spine pain (L2) methocarbamol 500 mg tablet 500 - 1,000 mg PO TID PRN (Reason: muscle spasm) Qty: 40 0RF Rx Instructions: Back muscle spasm irbesartan-hydrochlorothiazide 150-12.5 mg tablet 1 tab PO .daily in AM Qty: 90 3RF Rx Instructions: BP letrozole [Femara] 2.5 mg tablet 2.5 mg PO DAILY potassium chloride 10 mEq tablet,ER particles/crystals 10 meq PO DAILY Rx Instructions: 04/08/21 per [facility] oncololgy MARTIN (DME) Foot Care and Nail Trim See Rx Instructions .Route .MEDSUPPLY Qty: 1 0RF Rx Instructions: PRN for 1 year (07/26/2022) Thank you. ibuprofen 600 mg tablet 600 mg PO TID-QID PRN (Reason: pain (s) Qty: 60 4RF multivitamin Capsule 1 cap PO DAILY Medical Decision Making 72-year-old female recent diagnosis of metastatic cancer to liver and bone including lumbar spine and ribs, presents with acute onset atraumatic right shoulder discomfort radiating from shoulder into neck, slight nausea without vomiting. No respiratory distress. Afebrile nontoxic however appears mildly uncomfortable. Slightly reproducible with palpation over anterior shoulder, no palpable deformity, no skin changes. No reproduction of symptoms with movement. Pain is still present at rest. Abdomen soft nontender nondistended. Consider referred pain from diaphragmatic irritation due to metastatic disease versus must consider cervical spine involvement given bony mets to lumbar spine versus soft tissue injury such as sprain or strain versus unlikely dislocation or fracture must also consider ACS and pneumothorax however less likely. Screening labs imaging including CT C-spine to assess for bony metastases to cervical region, x-ray chest x-ray right shoulder, EKG, analgesia anti-inflammatory. Close reassessment disposition pending reassessment and results 23: 35 evidence of bony metastasis to likely cervical and thoracic region. Consider source for shoulder discomfort. Hemodynamically stable resting more comfortably after meds. Patient will need admission for pain control and spinal MRI, as well as possible PET scan if available. Patient is followed by oncologic service here in town. Sign Out No HPI General Date/Time Provider Initiated Documentation: 10/09/22 21:35. HPI Narrative: 72-year-old female recent diagnosis of metastatic cancer to liver and bone including her lumbar spine and ribs, presents with acute onset right shoulder pain this evening, atraumatic, denies chest pain or shortness of breath, does have slight nausea pain radiates from right shoulder up into neck. Not worse with movement. Is present at rest. Related Data Home Medications Medication Instructions Recorded Confirmed bimatoprost 0.01 % eye drops 1 drp ophthalmic (eye) QPM 02/09/19 10/06/22 (Lumigan) brimonidine 0.2 %-timolol 0.5 % 1 drp ophthalmic (eye) QAM 02/09/19 10/06/22 eye drops (Combigan) ibuprofen 600 mg tablet 600 mg PO TID-QID PRN pain (s #60 04/05/19 10/06/22 tabs multivitamin 1 cap PO DAILY 05/10/19 10/06/22 letrozole 2.5 mg tablet (Femara) 2.5 mg PO DAILY 10/06/20 10/06/22 potassium chloride 10 mEq 10 meq PO DAILY 04/08/21 10/06/22 tablet,extended release(part/cryst) ascorbic acid (vitamin C) 1,000 mg 1 g PO DAILY 06/01/21 10/06/22 tablet breast prosthesis and bras 1 unit EXT DAILY #1 unit 06/01/21 10/06/22 vitamin B complex 1 tab PO DAILY 06/01/21 10/06/22 irbesartan 150 1 tab PO .daily in AM HTN #90 tabs 06/11/22 10/06/22 mg-hydrochlorothiazide 12.5 mg tablet Foot Care and Nail Trim #1 ea 07/26/22 10/06/22 gabapentin 100 mg capsule 100 mg PO BID neuropathic pain 07/30/22 10/06/22 #180 caps methocarbamol 500 mg tablet 500 - 1,000 mg PO TID PRN muscle 07/30/22 10/06/22 spasm #40 tabs Previous Rx's Medication Instructions Recorded ibuprofen 600 mg tablet 600 mg PO TID-QID PRN pain (s #60 04/05/19 tabs breast prosthesis and bras 1 unit EXT DAILY #1 unit 06/01/21 irbesartan 150 1 tab PO .daily in AM HTN #90 tabs 06/11/22 mg-hydrochlorothiazide 12.5 mg tablet Foot Care and Nail Trim #1 ea 07/26/22 gabapentin 100 mg capsule 100 mg PO BID neuropathic pain 07/30/22 #180 caps methocarbamol 500 mg tablet 500 - 1,000 mg PO TID PRN muscle 07/30/22 spasm #40 tabs Allergies Allergy/AdvReac Type Severity Reaction Status Date / Time No Known Allergies Allergy Verified 10/06/22 06:22 General Stated Complaint: GenMedical YANETH: 3 Review of Systems Narrative: Review of Systems Constitutional: negative Eyes: negative ENT: negative Cardiovascular: negative Respiratory: negative Gastrointestinal: Nausea : negative Musculoskeletal: Shoulder pain Skin: negative Neurologic: negative Psych: negative PFSH All Active Problems (Updated 10/06/22 @ 14:28 by Donny Mcgowan MD) Liver metastases (Acute) Metastatic cancer to spine (Acute) Atypical endometrial hyperplasia (Acute) 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 (Acute) Abnormal radionuclide bone scan (Acute ~06/2022) L rib Lumbar radiculopathy (Acute ~2021) R ant thigh following L2; degenerative disease on bone scan Right thigh pain (Acute) FDC current use of aromatase inhibitor (Chronic) [facility] HEM ONC 09/29/21 note Peripheral polyneuropathy (Chronic) Per [facility] HEM ONC 09/29/21 Osteoarthritis of right knee (Chronic) x-ray 2019 Ortho referral 04/2020 Glaucoma (Chronic) Yasemin Essential hypertension (Chronic 02/13/16) Dx'ed 2015 HCTZ HCTZ-Irbesartan 05/2021 Family history of coronary artery disease (Chronic 10/07/14) Son with OH and stents x3 at 37yo Hyperlipidemia (Chronic 09/14/12) Total 224; LDL 137 Subclinical hypothyroidism (Chronic 09/25/13) 2010 elevated TSH, normal FT4 2012 normalized Medical History Abnormal bone scan of lumbar spine (~11/2019) L2; F/U study 2021 shows degenerative changes without concern for metastatic disease Chemotherapy-induced neuropathy Hands Encounter for central line placement (~05/15/19) PORT (chemo) Invasive ductal carcinoma of breast (~04/04/19) s/p R breast mastectomy [facility] Onc--05/2019 chemo, rad tx 11/20/2019 [facility] Onc _Dr Valdes 12/18/19 F/U w Dr Rae ([facility]) S/P xrt completion [facility] note from 08/10/21 Breast 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, 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 heart related. (didn't wake up one morning) Heart disease Alcohol abuse Coronary artery disease Brother Alcohol abuse Coronary artery disease Maternal Grandfather Alcohol abuse Coronary artery disease Son Alcohol abuse Coronary artery disease Myocardial infarction Sister Hypertension Paternal Grandmother Stroke Paternal Grandfather Stroke Other Family history of coronary artery disease Social History Smoking/Tobacco Use Status: Never Smoking risk assessment performed?: Yes Alcohol Intake: current Alcohol Intake frequency: holidays/special occasions only Drug use: Never Substance use type: does not use Adopted: No Caregiver/Support person: No Foster care: No Household members: spouse and family Housing: house Number of Children: 3 number of grandchildren: 9 Communication Needs: None Education Level: master's degree Do you need help understanding health information?: Rarely 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, [employer]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[employer] Pets and animals: Yes (2 cats and dog) Sexually active: No Do you think of yourself as: straight/heterosexual Current gender identity: female What is your relationship status?: How often do you talk on the phone with friends or family?: three or more times per week How often do you get together with friends or relatives?: three or more times per week How often do you attend pentecostalism or evangelical services?: 4 or more times per year Do you belong to any clubs or organized social groups?: yes Panel score (0-1 are the most socially isolated patients): 4 What type of physical activity do you participate in: walking Duration: 15-30 minutes/day Frequency: 1-2 times per week Nemo/Sikhism: Samaritan Special nemo needs: No Seatbelt use: always Helmet use: No Drive intox or ride w/intox 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 truck 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: No Do you feel safe at home: Yes Do you feel safe in your relationship?: Yes Exam Narrative Exam Narrative: Physical Examination General: alert, awake, cooperative, appears mildly uncomfortable HEENT: normocephalic, atraumatic; PERRL, EOM intact, conjunctiva normal; no nasal discharge; moist mucous membranes, oral and pharyngeal mucosa normal, tolerating secretions Neck: supple, trachea midline; full ROM Chest: normal to inspection Respiratory: normal respiratory effort, speaking in full sentences, clear to auscultation, no wheezing, rales or rhonchi Cardiac: regular rate, regular rhythm, S1S2 intact, no murmurs rubs or gallops GI: abdomen soft, non-tender, non-distended; no palpable mass or hepatosplenomegaly Skin: no lesions, rashes or trauma appreciated Neuro: AAOx3, normal speech, moving all extremities Extremities: Full range of motion right upper extremity, no palpable deformity, no overlying skin changes Psych: Appropriate mood and affect Course Vital Signs Vital signs: Vital Signs Respiratory Rate 92 H 10/09/22 21:41 Blood Pressure 169/82 H 10/09/22 21:41 Pulse Oximetry 98 10/09/22 21:41 Temperature Source Tympanic 10/09/22 21:41 Respiratory Rate 92 H 10/09/22 21:41 Respiratory Effort Non-Labored 10/09/22 21:41 Blood Pressure 169/82 H 10/09/22 21:41 Blood Pressure Position Supine 10/09/22 21:41 Pulse Oximetry 98 10/09/22 21:41 Oxygen Delivery Method Room Air 10/09/22 21:41 Oxygen Flow Rate 0 10/09/22 21:41
[2022-10-09] MEDS: Ondansetron 4 MG/2 ML VIAL IVP (22:00)
[2022-10-09] MEDS: Normal Saline 500 ML 1000 ML IV (22:00)
[2022-10-09 22:03] LABS: Abs Immature Grans 0.02 10^3/uL (0.0-0.06); Absolute Basophil Count 0.05 10^3/uL (0.0-0.2); Absolute Eosinophil Count 0.08 10^3/uL (0.0-0.7); Absolute Lymphocyte Count 1.48 10^3/uL (1.2-3.4); Absolute Monocyte Count 0.74 10^3/uL (0.1-0.8); Absolute Neutrophil Count 4.43 10^3/uL (1.2-6.7); Basophils % 0.7; Eosinophils % 1.2; HCT 40.9 % (36.0-46.0); HGB 13.5 g/dL (11.2-15.7); Immature Grans % 0.3; Lymphocytes % 21.8; MCH 32.1 pg (27.0-33.0); MCV 97 fL (80-95); Monocytes % 10.9; Neutrophils % 65.1; RDW 13.6 % (11.7-14.6); RDW-SD 48.8 fL
[2022-10-09] MEDS: Ketorolac 15 MG/ML VIAL IVP (22:03)
[2022-10-09] MEDS: MORPHine 10 MG/ML VIAL 2 MG IVP (22:10)
[2022-10-09 22:15] LABS: PTT Activated 17.8 sec (21.0-27.5)
[2022-10-09 22:25] LABS: ALT 126 U/L (14-59); AST 207 U/L (15-37); Albumin 3.6 g/dL (3.4-5.0); Alkaline Phosphatase 301 U/L (46-116); Anion Gap 9.8 mmol/L (3-11); BUN 28 mg/dL (7-18); Bilirubin, Total 0.8 mg/dL (0.2-1.0); CO2 27.2 mmol/L (21.0-32.0); CREATININE 1.3 mg/dL (0.55-1.02); Calcium 9.4 mg/dL (8.5-10.1); Chloride 102 mmol/L (98-107); Estimated GFR 43.42 (mL/min/1.73m2); Glucose 114 mg/dL (74-106); Potassium 3.2 mmol/L (3.5-5.1); Sodium 139 mmol/L (136-145); Total Protein 7.5 g/dL (6.4-8.2); Troponin I < 50 ng/L (<or=60)
--- NOTE | 2022-10-09 22:42 | DI.VRAD_ITS ---
PROCEDURE INFORMATION: Exam: CT Cervical Spine Without Contrast Exam date and time: 10/09/2022 10:19 PM Age: 72 years old Clinical indication: Other: Me CA to bone, pain TECHNIQUE: Imaging protocol: Computed tomography of the cervical spine without contrast. COMPARISON: NM BONE SCAN WHOLE BDY W/SPECT 07/07/2022 8:26 AM FINDINGS: Bones/joints: Craniocervical and atlantoaxial articulations are preserved and the odontoid process appears intact. Vertebral body height is grossly preserved throughout cervical levels with no acute fractures or dislocations detected. An abnormal mixed lucent/sclerotic pattern of bony density seen involving the vertebral bodies and posterior elements throughout cervical and upper thoracic levels while nonspecific, raises the possibility of disseminated bony metastases. No pathologic fractures are detected. Lungs: No pneumothorax or consolidation detected at the lung apices. Soft tissues: Unremarkable. IMPRESSION: Question disseminated bony metastases at cervical and upper thoracic levels with no pathologic fractures detected. MRI could provide additional diagnostic information. Dictated and Authenticated by: Durga Su MD. Ordering:PRASHANT Hines MD
--- NOTE | 2022-10-09 22:52 | DI.VRAD_ITS ---
PROCEDURE INFORMATION: Exam: XR Right Shoulder Exam date and time: 10/09/2022 10:34 PM Age: 72 years old Clinical indication: Other: Atraumatic right shoulder pain, TECHNIQUE: Imaging protocol: Radiologic exam of the Right shoulder. Views: 2 or more views. COMPARISON: NM BONE SCAN WHOLE BDY W/SPECT 07/07/2022 8:26 AM FINDINGS: Bones/joints: Acromioclavicular arthropathy is identified with osteophyte formation seen along joint space margins. Right glenohumeral joint appears grossly intact and no acute fractures or dislocations are detected. Soft tissues: Unremarkable. IMPRESSION: Acromioclavicular arthropathy with no acute fracture seen. Dictated and Authenticated by: Durga Su MD. Ordering:PRASHANT Hines MD
--- NOTE | 2022-10-09 22:54 | DI.VRAD_ITS ---
PROCEDURE INFORMATION: Exam: XR Chest Exam date and time: 10/09/2022 10:32 PM Age: 72 years old Clinical indication: Other: HX of met CA to liver, shoulder pain TECHNIQUE: Imaging protocol: Radiologic exam of the chest. Views: 1 view. COMPARISON: CT CHEST PE ABD PELVIS W 10/06/2022 9:09 AM FINDINGS: Lungs: Lungs are grossly clear throughout with no mass or consolidation detected. Pleural spaces: No pneumothorax or pleural effusion detected. Heart/Mediastinum: Heart size is normal and vessel margins are sharply defined. Bones/joints: No acute osseous lesions are detected. Soft tissues: Previous right mastectomy noted. IMPRESSION: No acute cardiopulmonary process. Dictated and Authenticated by: Durga Su MD. Ordering:PRASHANT Hines MD
--- NOTE | 2022-10-09 23:50 | W.PM.HP.N ---
Date of service: 10/09/22 Time of Service: 23:50 Assessment and Plan Assessment and plan (1) Metastatic cancer to spine: Start date: 10/09/22 Status: Acute Assessment and plan: This is 72-year-old lady who presented to the ED with right shoulder pain but is having significant discomfort most likely from her metastatic breast cancer which now involves the liver and bone. Some of her pain in her shoulder may be from referred pain from her liver. The diagnosis of recurrent breast cancer is new with patient status post right mastectomy with lymph node dissection being positive and status post chemotherapy with radiation therapy at the time of her initial treatment. Patient will receive IV morphine initially and convert to oral therapy for pain management during her observation. She will be revisiting oncology for treatment options and discussion. She is a full code at this time. (2) Liver metastases: Status: Acute Assessment and plan: Newly diagnosed with recent evaluation and this may be causing referred pain to the right shoulder. Follow-up oncology to review treatment options. Liver functions are elevated. Liver is also palpable and tender. History of Present Illness History of Present Illness Chief Complaint: Right shoulder pain Narrative: This is a 72-year-old female patient with a recent diagnosis of metastatic breast cancer to liver and bone including her lumbar spine and ribs who presented to the ED with right shoulder discomfort. Imaging of the shoulder revealed no pathologic fracture or bony changes other than arthritis. The patient stated that the shoulder pain was uncomfortable with deep sensation but was not tender to palpation or movement. There is no swelling or redness. She had no trauma. She does have abdominal discomfort from her liver metastases which is mild. She is overweight but active without restrictions and no complaints of significant back pain or change in back discomfort. She does have a history of chronic lumbago with right sciatica for which she is on antispasmodics and Neurontin. Patient was given morphine with some relief but this did not last more than 1 hour and she will continue on IV morphine for pain management and convert to oral pain management for return home. She will be observed for now. She is rethinking treatment options with failing chemotherapy and extra therapy done after her right mastectomy which was positive for lymph nodes at the time. She most likely will require radiation therapy of her back if symptomatic. Presently her abdominal metastases may be causing referred pain to her shoulder with her shoulder exam in the ED unrevealing. Patient is a full code. She lives at home with her who is wheelchair-bound. Review of Systems Narrative: 13 point review of systems otherwise unrevealing or stable. 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 (Acute) Abnormal radionuclide bone scan (Acute ~06/2022) L rib Lumbar radiculopathy (Acute ~2021) R ant thigh following L2; degenerative disease on bone scan Right thigh pain (Acute) alf current use of aromatase inhibitor (Chronic) [facility] [place] HEM ONC 09/29/21 note Peripheral polyneuropathy (Chronic) Per [facility] [place] HEM ONC 09/29/21 Osteoarthritis of right knee (Chronic) x-ray 2018 Ortho referral 04/2020 Glaucoma (Chronic) Yasemin Essential hypertension (Chronic 02/13/16) Dx'ed 2015 HCTZ HCTZ-Irbesartan 05/2021 Family history of coronary artery disease (Chronic 10/07/14) Son with [place] and stents x3 at 37yo Hyperlipidemia (Chronic 09/14/12) Total 224; LDL 137 Subclinical hypothyroidism (Chronic 09/25/13) 2010 elevated TSH, normal FT4 2012 normalized Medical History Abnormal bone scan of lumbar spine (~11/2019) L2; F/U study 2021 shows degenerative changes without concern for metastatic disease Chemotherapy-induced neuropathy Hands Encounter for central line placement (~05/15/19) PORT (chemo) Invasive ductal carcinoma of breast (~04/04/19) s/p R breast mastectomy [facility] Onc--05/2019 chemo, rad tx 11/20/2019 [facility] Rad Onc _Dr Valdes 12/18/19 F/U w Dr Rae ([facility] [place]) S/P xrt completion [facility] note from 08/10/21 Breast 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, Hormone receptor positive malignant neoplasm of breast Port-A-Cath in place Removed Surgical History History of appendectomy History of colonoscopy (~05/28/19) History of mastectomy R, [facility] History of tubal ligation (~1974) Family History Mother , 47 yo,ovarian cancer Ovarian cancer Father , 82 yo. heart related. (didn't wake up one morning) Heart disease Alcohol abuse Coronary artery disease Brother Alcohol abuse Coronary artery disease Maternal Grandfather Alcohol abuse Coronary artery disease Son Alcohol abuse Coronary artery disease Myocardial infarction Sister Hypertension Paternal Grandmother Stroke Paternal Grandfather Stroke Other Family history of coronary artery disease Social History Smoking/Tobacco Use Status: Never Smoking risk assessment performed?: Yes Alcohol Intake: current Alcohol Intake frequency: holidays/special occasions only Drug use: Never Substance use type: does not use Adopted: No Caregiver/Support person: No Foster care: No Household members: spouse and family Housing: house Number of Children: 3 number of grandchildren: 9 Communication Needs: None Education Level: master's degree Do you need help understanding health information?: Rarely 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, [employer] Pets and animals: Yes (2 cats and dog) Sexually active: No Do you think of yourself as: straight/heterosexual Current gender identity: female What is your relationship status?: How often do you talk on the phone with friends or family?: three or more times per week How often do you get together with friends or relatives?: three or more times per week How often do you attend adventism or hoahaoism services?: 4 or more times per year Do you belong to any clubs or organized social groups?: yes Panel score (0-1 are the most socially isolated patients): 4 What type of physical activity do you participate in: walking Duration: 15-30 minutes/day Frequency: 1-2 times per week Nemo/Baptist: Congregational Special nemo needs: No Seatbelt use: always Helmet use: No Drive intox or ride w/intox skip load driver: No Do you feel safe at home: Yes Do you feel safe in your relationship?: Yes Meds Allergies and Home Medications Allergies Allergy/AdvReac Type Severity Reaction Status Date / Time No Known Allergies Allergy Verified 10/06/22 06:22 Home Medications Medication Instructions Recorded Confirmed Type bimatoprost 0.01 % eye drops 1 drp ophthalmic (eye) QPM 02/09/19 10/10/22 History (King) ibuprofen 600 mg tablet 600 mg PO TID-QID PRN pain (s #60 04/05/19 10/10/22 Rx tabs multivitamin 1 cap PO DAILY 05/10/19 10/10/22 History potassium chloride 10 mEq 10 meq PO DAILY 04/08/21 10/10/22 History tablet,extended release(part/cryst) breast prosthesis and bras 1 unit EXT DAILY #1 unit 06/01/21 10/06/22 Rx vitamin B complex 1 tab PO DAILY 06/01/21 10/10/22 History irbesartan 150 1 tab PO .daily in AM HTN #90 tabs 06/11/22 10/10/22 Rx mg-hydrochlorothiazide 12.5 mg tablet Foot Care and Nail Trim #1 ea 07/26/22 10/06/22 Rx gabapentin 100 mg capsule 100 mg PO BID neuropathic pain 07/30/22 10/10/22 Rx #180 caps methocarbamol 500 mg tablet 500 - 1,000 mg PO TID PRN muscle 07/30/22 10/10/22 Rx spasm #40 tabs Exam Narrative Exam Narrative: General: Patient appears slightly older than stated age, alert and oriented x3 in no acute distress. She is moderately obese. HEENT: Normocephalic, eyes with pupils equal reactive light symmetrically, extraocular movement tact and sclera anicteric. Oropharynx with moist mucosa. Neck: Supple without JVD and no tenderness with palpation over the cervical spine. Back: Loss of lordotic curve of lumbar spine and no point tenderness to palpation. Straight leg test negative on the right. No CVA tenderness. Lungs: Fair aeration clear to auscultation percussion. Breast: Status postmastectomy on the right with patient wearing the prosthesis most of the time, left breast exam deferred. Heart: Regular rate and rhythm with no murmurs or gallops appreciated. Abdomen: Obese contour, soft to palpation with slight guarding to palpation of the right upper quadrant and palpable liver edge. No palpable spleen. No other tenderness and no rebound. Bowel sounds positive all quadrants. Genitalia/rectal: Exam deferred. Extremity: Without clubbing, cyanosis or grossly pitting edema. Good capillary refill lower extremities. Skin: Normal color, warm and dry. Neuro: Cranial nerves II through XII gross intact, no focalizing motor deficits. Patient does complain of paresthesias down her right lateral thigh associated with her right sciatica. Psych: Normal affect and mood. No abnormal thought processes. Remote and recent memory grossly intact. Results Imaging Imaging Studies: Exam: XR Chest Exam date and time: 10/09/2022 10:32 PM Age: 72 years old Clinical indication: Other: HX of met CA to liver, shoulder pain TECHNIQUE: Imaging protocol: Radiologic exam of the chest. Views: 1 view. COMPARISON: CT CHEST PE ABD PELVIS W 10/06/2022 9:09 AM FINDINGS: Lungs: Lungs are grossly clear throughout with no mass or consolidation detected. Pleural spaces: No pneumothorax or pleural effusion detected. Heart/Mediastinum: Heart size is normal and vessel margins are sharply defined. Bones/joints: No acute osseous lesions are detected.? Soft tissues: Previous right mastectomy noted. IMPRESSION: No acute cardiopulmonary process. Exam: XR Right Shoulder Exam date and time: 10/09/2022 10:34 PM Age: 72 years old Clinical indication: Other: Atraumatic right shoulder pain, TECHNIQUE: Imaging protocol: Radiologic exam of the Right shoulder. Views: 2 or more views. COMPARISON: NM BONE SCAN WHOLE BDY W/SPECT 07/07/2022 8:26 AM FINDINGS: Bones/joints:? Acromioclavicular arthropathy is identified with osteophyte formation seen along joint space margins.? Right glenohumeral joint appears grossly intact and no acute fractures or dislocations are detected. Soft tissues: Unremarkable. IMPRESSION: Acromioclavicular arthropathy with no acute fracture seen. Exam: CT Cervical Spine Without Contrast Exam date and time: 10/09/2022 10:19 PM Age: 72 years old Clinical indication: Other: Me CA to bone, pain TECHNIQUE: Imaging protocol: Computed tomography of the cervical spine without contrast. COMPARISON: NM BONE SCAN WHOLE BDY W/SPECT 07/07/2022 8:26 AM FINDINGS: Bones/joints: Craniocervical and atlantoaxial articulations are preserved and the odontoid process appears intact. Vertebral body height is grossly preserved throughout cervical levels with no acute fractures or dislocations detected.? An abnormal mixed lucent/sclerotic pattern of bony density seen involving the vertebral bodies and posterior elements throughout cervical and upper thoracic levels while nonspecific, raises the possibility of disseminated bony metastases.? No pathologic fractures are detected. Lungs: No pneumothorax or consolidation detected at the lung apices. Soft tissues: Unremarkable. IMPRESSION: Question disseminated bony metastases at cervical and upper thoracic levels with no pathologic fractures detected. MRI could provide additional diagnostic information. Labs Result diagrams: 10/10/22 05:52 10/09/22 21:55 Labs: Laboratory Results - last 24 hr 10/09/22 10/09/22 10/09/22 21:55 21:55 21:55 WBC 6.80 RBC 4.20 Hgb 13.5 Hct 40.9 MCV 97 H MCH 32.1 MCHC 33.0 RDW 13.6 Plt Count MPV Immature Gran % 0.3 Neutrophils % 65.1 Lymphocytes % 21.8 Monocytes % 10.9 Eosinophils % 1.2 Basophils % 0.7 Nucleated RBC % 0.0 Absolute Neutrophils 4.43 Absolute Lymphocytes 1.48 Absolute Monocytes 0.74 Absolute Eosinophils 0.08 Absolute Basophils 0.05 PT 10.0 INR 1.0 APTT 17.8 L Sodium 139 Potassium 3.2 L Chloride 102 Carbon Dioxide 27.2 Anion Gap 9.8 BUN 28 H Creatinine 1.3 H Est GFR (CKD-EPI 2020) 43.42 Glucose 114 H Calcium 9.4 Total Bilirubin 0.8 AST 207 H ALT 126 H Alkaline Phosphatase 301 H Troponin I < 50 Total Protein 7.5 Albumin 3.6 Last Vital Signs Pulse 75 10/09/22 23:01 Resp 14 10/09/22 23:40 BP 135/66 10/09/22 23:01 Pulse Ox 95 10/09/22 23:40
[2022-10-10] VITALS (11 sets, daily range): BP systolic 98–129; BP diastolic 61–80; PULSE 69–77; RESP 9–19; TEMP 36.2–37.1; O2SAT 90–97
[2022-10-10] MEDS: MORPHine 10 MG/ML VIAL 2 MG IVP
[2022-10-10 00:22] LABS: Source Nasal/Nares
[2022-10-10 00:49] LABS: COVID-19 PCR Negative (Negative)
[2022-10-10] MEDS: Normal Saline 1,000 ML 100 ML IV ×2 (02:20→13:17)
[2022-10-10 06:05] LABS: HCT 35.7 % (36.0-46.0); HGB 11.8 g/dL (11.2-15.7); MCH 32.5 pg (27.0-33.0); MCHC 33.1 % (32.0-36.0); MCV 98 fL (80-95); MPV 11.2 fL (8.0-11.0); Platelet Count 125 10^3/uL (130-400); RBC 3.63 10^6/uL (3.93-5.22); RDW 13.6 % (11.7-14.6); WBC 4.91 10^3/uL (4.4-10.8)
[2022-10-10 06:16] LABS: INR 1.1 (0.9-1.1); Prothrombin Time 10.6 sec (9.3-11.0)
[2022-10-10 06:21] LABS: Magnesium 1.9 mg/dL (1.8-2.4)
[2022-10-10 06:30] LABS: Troponin I < 50 ng/L (<or=60)
[2022-10-10] MEDS: MORPHine 4 MG/ML SYR 2 MG IVP (06:43)
[2022-10-10] MEDS: Heparin 5,000 UNITS/ML VIAL 5000 UNITS SC ×3 (06:52→23:41)
[2022-10-10] MEDS: Multivitamin TAB 1 TAB PO (08:12)
[2022-10-10] MEDS: Gabapentin 100 MG CAP PO ×2 (08:12→20:07)
[2022-10-10] MEDS: Ascorbic Acid 500 MG TAB 1000 MG PO (08:12)
[2022-10-10] MEDS: Potassium Chloride 10 MEQ TABCR 20 MEQ PO ×2 (08:13→20:07)
[2022-10-10] MEDS: Vitamins B Comp w/C TAB 1 TAB PO (08:14)
[2022-10-10] MEDS: hydroCHLOROthiazide 12.5 MG TAB PO (08:38)
[2022-10-10] MEDS: Irbesartan 75 MG TAB 150 MG PO (08:39)
--- NOTE | 2022-10-10 09:03 | IN_ITS ---
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 Inpatient Physical Therapy Evaluation Date: 10/10/22 Referring Doctor: Dr. Cesar PT Orders: PT CONSULT: limited ability to ambulate Precautions: standard Patient Profile/Admitting Diagnosis: Patient admitted 10/09/22 after presenting to ER with severe, atraumatic right shoulder pain, which was felt to be referred pain from metastatic breast cancer, now with mets to bone and liver. Admitted for observation, and PT consult requested to assess mobility. PMHX: All Active Problems? Liver metastases (Acute) Metastatic cancer to spine (Acute) Atypical endometrial hyperplasia (Acute) 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 (Acute) Abnormal radionuclide bone scan (Acute ~06/2022) L ribLumbar radiculopathy (Acute ~2021) R ant thigh following L2; degenerative disease on bone scanRight thigh pain (Acute) shelter current use of aromatase inhibitor (Chronic) [facility]C 09/29/21 notePeripheral polyneuropathy (Chronic) Per [facility]C 09/29/21Osteoarthritis of right knee (Chronic) x-ray 2019 Ortho referral 04/2020Glaucoma (Chronic) PhippsEssential hypertension (Chronic 02/13/16) Dx'ed 2015 HCTZ HCTZ-Irbesartan 05/2021Family history of coronary artery disease (Chronic 10/07/14) Son with [place] and stents x3 at 37yo Hyperlipidemia (Chronic 09/14/12) Total 224; LDL 137 Subclinical hypothyroidism (Chronic 09/25/13) 2010 elevated TSH, normal FT4 2012 normalized Medical History? Abnormal bone scan of lumbar spine (~11/2019) L2; F/U study 2021 shows degenerative changes without concern for metastatic diseaseChemotherapy-induced neuropathy HandsEncounter for central line placement (~05/15/19) PORT (chemo)Invasive ductal carcinoma of breast (~04/04/19) s/p R breast mastectomy [facility] Onc--05/2019 chemo, rad tx 11/20/2019 [facility] Rad Onc _Dr Valdes 12/18/19 F/U w Dr Rae ([facility]) S/P xrt completion [facility] note from 08/10/21 Breast 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, Hormone receptor positive malignant neoplasm of [id number] in place Removed Social History/Home Situation: 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 Lives in a private home with her , who has some mobility issues, but is able to care for himself independently. She generally ambulates without assistive device, drives, and remains generally active. Reports h/o a single fall, which occurred after tripping on a tree root while walking outdoors. Equipment Owned/DME: cane Subjective: Nery states that her pain is much better controlled today. She had pain meds about 90 minutes ago, and now has no shoulder pain to speak of. She is most comfortable lying down due to back pain, particularly in sitting position. States that she has been feeling a little woozy from the meds, but otherwise is feeling good. Objective: General Observation: Resting in bed with IV in LUE. Mental Status: A&Ox3. Pleasant and cooperative. Pain: well managed at time of consult ROM: Right Upper Extremity: Shoulder flexion to 135*, without pain. Otherwise WNL for UEs. Left Upper Extremity:Shoulder flexion to 135*, without pain. Otherwise WNL for UEs. Right Lower Extremity: Grossly WNL Left Lower Extremity: Grossly WNL Strength: Right Upper Extremity: WNL Left Upper Extremity: WNL Right Lower Extremity: Hip flexion 5/5. Quads 5/5. Ankle DF 5/5. Left Lower Extremity: Hip flexion 5/5. Quads 5/5. Ankle DF 5/5. Neuro: Coordination mildly impaired with alternating toe tapping and heel to lutz. Normal for UEs with rapid alternating movements of the forearm. Fine motor intact. 4- Position Balance Test 3/4 Bed Mobility/Transfers: supine-sit: independent sit-supine: independent sit-stand: independent stand-sit: independent Gait: Initially ambulates without device, with CGA and gait deviations. She demonstrates path deviation and frequently reaches for deng and furniture. Transitioned to use of cane in RUE, with marked improvements in gait- able to ambulate 120' with CGA-supervision, no losses of balance. Balance: Static Sitting: normal Dynamic Sitting: normal Static Standing: good Dynamic Standing: fair Special Tests: Mobility Limitations Standardized Measure [facility]-P[facility] 6 clicks Basic Mobility Inpatient Short Form: Raw Score: 24 CMS Score: 0% impairment Informed Consent/Education: Patient instructed in purpose of PT consult and plan of care. Assessment: Patient is a 72 year old female referred to physical therapy services with the diagnosis of limited ability to ambulate during acute care stay for medical management of pain related to metastatic cancer. Patient presents with clinical signs and symptoms consistent with diagnosis, with mild impairments in gait and dynamic balance. She showed good safety and independence with use of cane, and I've strongly recommended she begin consistent use of cane upon return home; she's agreeable to this and has a cane at home she can use. At this time, she demonstrates sufficient safety and independence to allow for safe transition back to community once medically stable. No further PT required in acute care setting. She currently demonstrates the following impairment level findings: 1. decreased dynamic balance 2. gait impairments Impairments are contributing to the following functional limitations: 1. unable to safely ambulate without use of cane Patient is assessed as a Low [id number] complexity based on the following: History: Patient is a 72 year old female presenting with minor gait impairments, easily corrected with use of cane. Pain related to metastatic cancer is well managed at time of consult. No further PT required at this time. Examination: funtional limitations as noted above. Presentation: stable Decision Making: low complexity Plan of Care/Treatment Plan: D/C from PT services. DISCHARGE RECOMMENDATIONS: Home with no services Use cane for all ambulation TREATMENT CODE/TIME: 34537 (9:05-9:30) Ally Maloney, PT, DPT [facility]
--- NOTE | 2022-10-10 09:57 | PDOC.CMIN ---
- If Service Date Differs Date of service: 10/10/22 Time of Service: 09:57 Care Management Initial Assess REASON FOR HOSPITALIZATION:: Metastatic breast cancer to spine, intractable pain PAST MEDICAL HISTORY/PAST SURGICAL HISTORY:: Medical History . Abnormal bone scan of lumbar spine (~11/2019). L2; F/U study 2021 shows degenerative changes without concern for metastatic disease. Chemotherapy-induced neuropathy. Hands. Encounter for central line placement (~05/15/19). PORT (chemo). Invasive ductal carcinoma of breast (~04/04/19). s/p R breast mastectomy. [facility] [place] Onc--05/2019 chemo, rad tx. 11/20/2019 [facility] Rad Onc _Dr Valdes. 12/18/19 F/U w Dr Rae ([facility]) S/P xrt completion. [facility] note from 08/10/21 Breast 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, Hormone receptor positive malignant neoplasm of breast. Port-A-Cath in place. Removed. Surgical History . History of appendectomy. History of colonoscopy (~05/28/19). History of mastectomy. R, [facility]. 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 Ry generally ambulates without assistive device, drives, and remains generally active. She's been battling breast cancer for a few years; now metastatic to bone (spine) and liver. CURRENT FUNCTIONAL STATUS:: Nery presented to the ED with severe, atraumatic right shoulder pain, which was felt to be referred pain from metastatic breast cancer, now with mets to bone and liver. Admitted for observation, and PT consult requested to assess mobility. Nery states that her pain is much better controlled today. She is most comfortable lying down due to back pain, particularly in sitting position. States that she has been feeling a little woozy from the meds, but otherwise is feeling good. Has patient been provided with info about the portal/API?: Yes Did the patient sign up for the portal?: Yes CODE STATUS:: Full Code INSURANCE COVERAGE / FINANCIAL ISSUES:: [place] CURRENT HOME/COMMUNITY SERVICES/EQUIPMENT:: [employer] PRIMARY CARE PHYSICIAN:: Mary Chinchilla POTENTIAL DISCHARGE NEEDS:: Follow up appointments. PATIENT/FAMILY EDUCATION NEEDS:: Review discharge instructions, discuss Ask Me Three. ANTICIPATED BARRIERS TO DISCHARGE:: None identified. TRANSPORTATION:: Via private vehicle with family. PLAN:: Anticipate Nery will return home with outpatient follow up and consideration of Palliative consult. She will transport via private vehicle with family.
--- NOTE | 2022-10-10 13:47 | W.PM.PROGNOT ---
Date of Service Date of service: 10/10/22 Time of Service: 13:48 Assessment and Plan Assessment and plan (1) Metastatic cancer to spine: Status: Acute Assessment and plan: will proceed w/ MRI of entire spine, the right shoulder pain probably is radicular in nature and coming from c spine. I have added oral morphine which seems to be controlling her pain longer than the iv morphine. Once she has been hospitalized for 24hr and we have a handle on how much morphine she has required, I can convert her to longer acting morphine. She has a follow up w/ Dr. Cobos on Tuesday. We will get her MRI of her c spine and t spine as well as her LS spine tomorrow. If her pain is adequately controlled then she can be discharged home tomorrow. Professional time spent interviewing and examining patient, discussion of goals of care with hospital team (care management, nursing and consulting professionals) was 30 minutes. Subjective Subjective Interval history since last seen: patient still have significant pain, particularly in her right shoulder. Patient is s/p right mastectomy March 2019 w/ postive lymph nodes and underwent radiation and chemotherapy. She is followed by Dr. Cobos at [facility]. She was diagnosed w/ lumbar vertebral compression fracture but this was found to be a metastatic lesion including her liver. She is now admitted w/ increased bone pain and has new pain in her right shoulder. Plain film xray of her shoulder showed degenerative arthritis. Patient was admitted for pain control. Exam Narrative Exam Narrative: Nery is lying in bed w/ K pad on her right shoulder. There is no obvious deformity. She has normal ROM. Lungs: clear Heart: RRR Abdomen: soft, nontender Objective Last Vital Signs Temp 36.6 C 10/10/22 10:54 Pulse 72 10/10/22 10:54 Resp 16 10/10/22 10:54 BP 125/80 10/10/22 10:54 Pulse Ox 92 10/10/22 10:54 Laboratory Results - last 24 hr 10/09/22 10/09/22 10/09/22 21:55 21:55 21:55 WBC 6.80 RBC 4.20 Hgb 13.5 Hct 40.9 MCV 97 H MCH 32.1 MCHC 33.0 RDW 13.6 Plt Count MPV Immature Gran % 0.3 Neutrophils % 65.1 Lymphocytes % 21.8 Monocytes % 10.9 Eosinophils % 1.2 Basophils % 0.7 Nucleated RBC % 0.0 Absolute Neutrophils 4.43 Absolute Lymphocytes 1.48 Absolute Monocytes 0.74 Absolute Eosinophils 0.08 Absolute Basophils 0.05 PT 10.0 INR 1.0 APTT 17.8 L Sodium 139 Potassium 3.2 L Chloride 102 Carbon Dioxide 27.2 Anion Gap 9.8 BUN 28 H Creatinine 1.3 H Est GFR (CKD-EPI 2020) 43.42 Glucose 114 H Calcium 9.4 Magnesium Total Bilirubin 0.8 AST 207 H ALT 126 H Alkaline Phosphatase 301 H Troponin I < 50 Total Protein 7.5 Albumin 3.6 COVID-19 Source SARS-CoV-2 (PCR) 10/10/22 10/10/22 10/10/22 00:05 05:52 05:52 WBC RBC Hgb Hct MCV MCH MCHC RDW Plt Count MPV Immature Gran % Neutrophils % Lymphocytes % Monocytes % Eosinophils % Basophils % Nucleated RBC % Absolute Neutrophils Absolute Lymphocytes Absolute Monocytes Absolute Eosinophils Absolute Basophils PT INR APTT Sodium Potassium Chloride Carbon Dioxide Anion Gap BUN Creatinine Est GFR (CKD-EPI 2020) Glucose Calcium Magnesium 1.9 Total Bilirubin AST ALT Alkaline Phosphatase Troponin I < 50 Total Protein Albumin COVID-19 Source Nasal/Nares SARS-CoV-2 (PCR) Negative 10/10/22 10/10/22 05:52 05:52 WBC 4.91 RBC 3.63 L Hgb 11.8 Hct 35.7 L MCV 98 H MCH 32.5 MCHC 33.1 RDW 13.6 Plt Count 125 L MPV 11.2 H Immature Gran % Neutrophils % Lymphocytes % Monocytes % Eosinophils % Basophils % Nucleated RBC % Absolute Neutrophils Absolute Lymphocytes Absolute Monocytes Absolute Eosinophils Absolute Basophils PT 10.6 INR 1.1 APTT Sodium Potassium Chloride Carbon Dioxide Anion Gap BUN Creatinine Est GFR (CKD-EPI 2020) Glucose Calcium Magnesium Total Bilirubin AST ALT Alkaline Phosphatase Troponin I Total Protein Albumin COVID-19 Source SARS-CoV-2 (PCR)
[2022-10-11] MEDS: Ondansetron 4 MG/2 ML VIAL IVP (00:37)
[2022-10-11] MEDS: Normal Saline 1,000 ML 100 ML IV (00:37)
[2022-10-11 00:53] VITALS: BP 133/74; PULSE 71; RESP 12; O2SAT 83
[2022-10-11 03:15] VITALS: BP 151/78; PULSE 71; RESP 16; TEMP 37.3; O2SAT 93
--- NOTE | 2022-10-11 06:39 | NUR.NOTE ---
Nursing Note: IV REPORT Normal Saline 100ml's an hour infiltration. Earlier on the morning of 10/11/22 MD came in to place in IV ultrasound placement IV. prior to starting IV fluids back at approximately 0100 am. positive blood return was noted in the IV. at 0636 am. [employer] broadcasted to notify that pts arm has signifant swelling around the iv site. the pt reports. no pain at this time. iv's removed. pts arm elevated. NS is isotonic.
--- NOTE | 2022-10-11 07:00 | DI.MRI_ITS ---
Exam(s) MR LUMBAR SPINE WO/W EXAM: MR LUMBAR SPINE WO/W CLINICAL HISTORY: metastatic breast cancer TECHNIQUE: Multiplanar multisequence MRI of the Lumbar Spine was performed. CONTRAST MATERIAL: IV Contrast: 17 mL of Dotarem contrast administered. COMPARISON: MR MR LUMBAR SPINE WO/W from 11/09/2019 CT,NM NM BONE SCAN WHOLE BDY W/SPECT from 07/07/[address] CHEST PE ABD PELVIS W from 10/06/2022 CR,XR XR SHOULDER RT COMPLETE 2+V from 10/09/2022 FINDINGS: Abnormal signal and postcontrast enhancement are seen within the T11 and T12 vertebral bodies. The L 1 vertebral body shows a mild amount of enhanced on the right-side. The T2 vertebral body is involve d by a expansile, destructive mass which extends posteriorly into the canal and significantly reducin g the AP dimension of the canal, 10 millimeters in AP dimension. There is also some is extension inf eriorly to the T2 vertebral body as well as extension into adjacent soft tissues as well as right ped icle, spinous process and transverse process. there is severe neural foraminal narrowing greater on t he right. There is enhancement in the posterior soft tissues at the L1 and L2 levels. Small focus o f abnormal enhancement is seen in the bilateral pedicles of L4. There is a tiny focus of active enha ncement in the inferior L5 vertebral body. Patchy areas of abnormal enhancement is noted in the S1. The urinary bladder is noted to be abnormally distended. Several uterine fibroids are noted. There is free fluid in the pelvis. Degenerative disc changes are noted greatest at L1-2 and L2-3. Facet d egenerative changes are also present. IMPRESSION: Metastatic lesion in the L2 vertebral body is a is expansile and extends into the central canal by 10 millimeters, causing central canal stenosis as well as right-sided neural foraminal narrowing. Ther e is also extension into the adjacent paraspinal muscles. Multiple other metastatic foci are noted. Abnormal enhancement is seen in the posterior subcutaneous fat. DATA REPOSITORY:
--- NOTE | 2022-10-11 07:00 | DI.MRI_ITS ---
Exam(s) MR CERVICAL SPINE WO/W EXAM: MR CERVICAL SPINE WO/W CLINICAL HISTORY: metastatic breast cancer TECHNIQUE: Multiplanar multisequence MRI of the cervical spine was performed. CONTRAST MATERIAL: IV Contrast: 17 ML of Dotarem contrast administered. COMPARISON: CT CT CERVICAL SPINE WO from 10/09/2022 FINDINGS: The exam is limited by patient motion. The overall marrow signal is mottled. There is abnormal high signal involving C3 vertebral body whic h shows a focus of postcontrast enhancement toward the right of the vertebral body. There is some increased enhancement in the right side of the 6 vertebral body. T7 also shows signifi cantly increased enhancement. There is no abnormal head cord enhancement. There is no extension into the central canal. There are degenerative disc changes with endplate osteophytes and and disc bulging greatest at C5-6. This is not appear appear to impinge on the cord. IMPRESSION: Multiple foci of bony metastases. DATA REPOSITORY:
--- NOTE | 2022-10-11 07:00 | DI.MRI_ITS ---
Exam(s) MR THORACIC SPINE WO/W EXAM: MR THORACIC SPINE WO/W CLINICAL HISTORY: metastatic breast cancer. TECHNIQUE: Multiplanar multisequence MRI of the Thoracic spine was performed. CONTRAST MATERIAL: IV Contrast: 17 mL of Dotarem contrast administered. COMPARISON: CT,NM NM BONE SCAN WHOLE BDY W/SPECT from 07/07/[address] CHEST PE ABD PELVIS W from 10/06/2022 MR MR CERVICAL SPINE WO/W from 10/11/2022 FINDINGS: The cord signal is normal throughout. Mottled marrow signal throughout. Mild heterogeneous enhancem ent is seen in T2 and T3. Small focus of enhancement seen left side of T4 vertebral body. Small foc us of enhancement right posterior T5 small focus of enhancement superior posterior endplate T6. Larg er focus of enhancement mid body T7. Large area of abnormal in and enhancement involving the T10 kamini tebral body abnormal enhancement in the T11 and superior endplate of T 12 vertebral bodies. There is no evidence of a extension into the central canal. There is no abnormal dural enhancement. IMPRESSION: Widespread bony metastatic disease with the most affected vertebral body being T10. No extension int o the central canal. Thoracic spinal cord is normal. DATA REPOSITORY:
[2022-10-11 07:15] VITALS: BP 115/71; PULSE 75; RESP 17; TEMP 37; O2SAT 90
[2022-10-11] MEDS: Letrozole 2.5 MG TAB PO (08:47)
[2022-10-11] MEDS: Gabapentin 100 MG CAP PO (08:47)
[2022-10-11] MEDS: Ascorbic Acid 500 MG TAB 1000 MG PO (08:47)
[2022-10-11] MEDS: Irbesartan 75 MG TAB 150 MG PO (08:48)
[2022-10-11] MEDS: Potassium Chloride 10 MEQ TABCR 20 MEQ PO (08:48)
[2022-10-11] MEDS: hydroCHLOROthiazide 12.5 MG TAB PO (08:48)
[2022-10-11] MEDS: Vitamins B Comp w/C TAB 1 TAB PO (08:48)
[2022-10-11] MEDS: Multivitamin TAB 1 TAB PO (08:49)
[2022-10-11] MEDS: Heparin 5,000 UNITS/ML VIAL 5000 UNITS SC (08:49)
--- NOTE | 2022-10-11 09:16 | CMPROGNOTE_ITS ---
- If Service Date Differs Date of service: 10/11/22 Time of Service: 09:16 Care Management Progress Note S/O: Nery is feeling well, she is independent in her room and is planning on seeing her Oncologist Dr. Marte from [facility] tomorrow. Per MD, patient is progressing back to baseline. MRI is ordered for today. PT consult is ordered. Pt may benefit from a Palliative consult. Nery is discharged this evening with a Mid-Line. CM contacted [facility], [facility] indicating that midline is in place for infusion. Per MD, Midline to be removed after her infusion. [facility] to discuss terminal worker options for continued IV infusions. A: 72 year old female admitted to [facility] on 10/09/22 for Metastatic breast cancer to spine, intractable pain P: Anticipate Nery will return home with outpatient follow up and consideration of Palliative consult. She will transport via private vehicle with family.
--- NOTE | 2022-10-11 09:16 | PDOC.CMPRO ---
- If Service Date Differs Date of service: 10/11/22 Time of Service: 09:16 Care Management Progress Note S/O: Nery is feeling well, she is independent in her room and is planning on seeing her Oncologist Dr. Marte from [facility] tomorrow. Per MD, patient is progressing back to baseline. MRI is ordered for today. PT consult is ordered. Pt may benefit from a Palliative consult. Nery is discharged this evening with a Mid-Line. CM contacted [facility], [facility] indicating that midline is in place for infusion. Per MD, Midline to be removed after her infusion. [facility] to discuss buttermaker continuous churn options for continued IV infusions. A: 72 year old female admitted to [facility] on 10/09/22 for Metastatic breast cancer to spine, intractable pain P: Anticipate Nery will return home with outpatient follow up and consideration of Palliative consult. She will transport via private vehicle with family.
[2022-10-11 12:43] VITALS: BP 158/88; PULSE 81; RESP 18; TEMP 37.4; O2SAT 98
--- NOTE | 2022-10-11 14:00 | DI.US_ITS ---
Exam(s) US UPPER EXTREMITY VENOUS LT EXAM: US UPPER EXTREMITY VENOUS LT CLINICAL HISTORY: DVT. TECHNIQUE: Ultrasound examination of the left upper extremity venous system(s) is performed using gr ayscale, color-flow, and spectral Doppler analysis. COMPARISON: US POCUS EXAM from 10/11/2022 FINDINGS: Thrombus noted distally in the cephalic vein measuring 2.5 cm in length. Thrombus visible in median cubital vein measuring 4.3 cm in length. Remaining veins are free of thrombus. IMPRESSION: Deep venous thrombosis in the distal cephalic and median cubital veins. DATA REPOSITORY:
[2022-10-11 14:48] VITALS: BP 149/81; PULSE 81; RESP 18; TEMP 37.2; O2SAT 93
--- NOTE | 2022-10-11 14:56 | W.ANESVAS ---
Midline Placement Date Performed: 10/11/22 Procedure Time: 14:23 Requesting Provider: Gee Cesar Procedure Location: Med/Surg Sedation Given (Indicate Dose Given): No Sedation given Patient Mental Status: Awake Sterility: Hand Hygiene, Surgical Cap, Surgical Mask, Sterile Gloves and Chlorhexidine Laterality: Right Insertion Site: Basilic Midline Device: PowerGlide Pro 20G Catheter Length: 10 cm Midline Procedure Procedure: 1% Lidocaine to skin and subcutaneous tissue with 25g needle, Vessel accessed with catheter over needle, Guidewire placed with ease, Catheter placed without resistance and Guidewire removed Dressing: Tegaderm Applied and Statlock Applied Blood Return: Present Flushes: Easily Ultrasound: Sterile probe cover and gel used Ultrasound Image Saved?: Yes Number of Attempts (See previous attempts in note section): 1 Procedure Tolerated: No Complications and Patient tolerated well Procedure Outcome: Successful Procedure Comment:: Called to place IV for MRI. Upon ultrasound exam of the left upper arm, noted multiple veins that appear to have blood clots in them, notably brachial and cephalic. Notified hospitalist of this who will follow up. Given need for access, discussed with patient and decisison to place midline in right arm, despite history of mastectomy and node removal. No history of lymphedema. Pt. also has infusion appointment tomorrow and was requesting to keep midline in place for this. Midline placed with ease. Performed By: Alban Han
[2022-10-11] MEDS: Normal Saline Flush 10 ML SYR IVP ×2 (15:26→17:53)
[2022-10-11] MEDS: Gadoterate meglumine 20 ML VIAL 17 ML IVP (15:27)
--- NOTE | 2022-10-11 17:36 | W.PM.DS.N ---
Date of service: 10/11/22 Time of Service: 17:36 DS: Diagnosis Discharge Diagnosis (1) Metastatic cancer to spine: Status: Acute Asessment and Plan: Patient presented w/ uncontrolled right shoulder pain, plain film xray of her right shoulder showed DJD. She has known metastatic breast cancer w/ liver and rib mets. Workup included a xary of her right shoulder, chest xray (no acute process), CT of her c-spine (sclerotic bony metastasis and DJD). She was admitted for pain control including iv NSAID and morphine. She was switched to oral morphine but did not tolerate this d/t nausea. She was then put on Tramadol. Further evaluation for spinal mets was done including MRI of her c-spine, T-spine and LS spine. This confirmed multiple bony metastatic disease at multiple levels in the cervical, thoracic and lumbar levels including an expansile mass at L2 causing central canal stenosis. Due to inablity to maintain peripheral iv for her enhanced MRI study, anesthesia was consulted to place a midline. After venous compression US of her left arm, she was found to have a thrombus in her distal left cephalic and median veins. A midline was subsequently placed in her right arm. See anesthesia's notes for details. Patient had formal US of her left arm which then confirmed the thrombus in her cephalic and median veins. She was started on Eliquis 10 mg and dc home on Eliquis 10 mg bid x 7 days then 5 mg bid thereafter. She was given an Rx for Tramadol for her pain. She was discharged w/ the midline left in place for her infusion at the [facility] for tomorrow. After the infusion she is to have the midline removed. She will need referral to Dr. Hull for placement of a Groshong or Mediport for future infusions. (2) Deep vein thrombosis (DVT) of left upper extremity: Status: Acute Asessment and Plan: patient will need to be on Elquis 5 mg bid for 3 months after her initial first week of Eliquis 10 mg bid Discharge Plan Disposition Patient Disposition: Home Condition: Fair Discharge Details Reason For Visit: Metastatic Breast Cancer to Spine,Intractable Pain Admit Date/Time: 10/09/22 23:51 Admit Provider: Cruz León Attending Provider: Cruz León Primary Care Provider: Mary Chinchilla Home Meds and New Rx's Prescriptions: New tramadol 50 mg tablet See Rx Instructions .ROUTE .COMPLEX PRNQty: 40 0RF Rx Instructions: 50 to 100 mg qid prn pain naloxone 4 mg/actuation spray,non-aerosol 1 spray intranasal Q2-3M PRNQty: 2 0RF Rx Instructions: spray 1 dose into ONE nostril; alternate nostrils w each dose until help arrives apixaban 5 mg (74 tabs) tablets,dose pack See Rx Instructions .ROUTE .COMPLEX Qty: 74 0RF Rx Instructions: orally per package directions Continued Lumigan 0.01 % drops 1 drp OP QPM vitamin B complex Tablet 1 tab PO DAILY breast prosthesis and bras 1 unit EXT DAILY Qty: 1 0RF Rx Instructions: dispense one weighted breast prosthesis, right and 3 bras s/p R mastectomy, breast CA Z90.11, C50.911 gabapentin 100 mg capsule 100 mg PO BID Qty: 180 3RF Rx Instructions: R thigh radicular lumbar spine pain (L2) methocarbamol 500 mg tablet 500 - 1,000 mg PO TID PRN (Reason: muscle spasm) Qty: 40 0RF Rx Instructions: Back muscle spasm irbesartan-hydrochlorothiazide 150-12.5 mg tablet 1 tab PO .daily in AM Qty: 90 3RF Rx Instructions: BP potassium chloride 10 mEq tablet,ER particles/crystals 10 meq PO DAILY Rx Instructions: 04/08/21 per [facility] [place] MARTIN (DME) Foot Care and Nail Trim See Rx Instructions .Route .MEDSUPPLY Qty: 1 0RF Rx Instructions: PRN for 1 year (07/26/2022) Thank you. ibuprofen 600 mg tablet 600 mg PO TID-QID PRN (Reason: pain (s) Qty: 60 4RF multivitamin Capsule 1 cap PO DAILY Discharge Instructions Instructions: Tramadol (By mouth), Apixaban (By mouth), Naloxone (Into the nose), Deep Vein Thrombosis (DC) Additional Instructions: You developed DVT of your left arm at a prior iv site. You have been prescribed Eliquis (apixaban) an oral blood thinner to prevent propagation of the clot and further clots. You need to take this for at least 3 months. You also had a midline placed in your right arm for purpose of giving contrast for your MRI. You are being sent home w/ the midline in place so that you can get your infusion done at [facility]. They should remove the midline tomorrow after your infusion. You should discuss w/ your oncologist about getting a Groshong or Mediport placed for continued iv infusions. You have been prescribed Tramadol for breakthrough bone pain from your metastatic disease. You have also been prescribed narcan to be used in the event of inadvertent/accidental overdose. Stand Alone Forms: Nursing Discharge Form Referrals: Minor Gorman [ NON-[facility] STAFF PHYSICIAN] - (keep your follow up tomorrow w/ Dr. Cobos) Mary Chinchilla, [employer] MANAGER [Primary Care Provider] - (Please call to make an Appointment Tuesday for a follow up in the next 2 weeks ) Activity:: Activity as Tolerated Equipment/Supplies:: No Equipment Needed Diet:: Normal Diet Discharge Orders Discharge Orders: Discharge Order (Routine); Ordered 10/11/22 Ordered By: Gee Cesar Discharge Data Discharge Date/Time-TO BE ENTERED AT DEPARTURE: 10/11/22 18:28 DS: Summary Time Spent with Patient providing and/or coordinating discharge services: Less than 30 minutes Specific discharge activities: Interview/exam of patient; review of discharge instructions, completion of prescriptions/discharge instructions; discussion w/ nursing and CM; documentation of hospital visit Status at Discharge Functional status at discharge: independent ambulation Overall status at discharge: patient is progressing back to baseline Mental Status: mental status grossly normal Speech and Movement: speech and movement normal Mood: congruent mood Affect: normal affect Exam Narrative Exam Narrative: Nery has some right shoulder pain but does not want anymore morphine as it upsets her stomach Left arm is inspected and the prior iv site does not appear reddened nor swollen. pulses are intact, hand and arm w/out edema or coolness. Psych Mental Status: mental status grossly normal Speech and Movement: speech and movement normal Mood: congruent mood Affect: normal affect DS: Data Vitals/I&O Vitals and I&O: Vital Signs Temperature 37.2 C 10/11/22 14:48 Temperature Source Tympanic 10/11/22 14:48 Pulse 81 10/11/22 14:48 Pulse Rhythm Regular 10/11/22 09:00 Pulse 71 10/10/22 00:30 Respiratory Rate 18 10/11/22 14:48 Respiratory Effort Non-Labored 10/11/22 09:00 Respiratory Depth Normal 10/11/22 09:00 Respiratory Pattern Normal 10/11/22 09:00 Blood Pressure 149/81 H 10/11/22 14:48 Blood Pressure Mean 79 10/10/22 00:01 Blood Pressure Position Supine 10/09/22 21:41 Pulse Oximetry 93 10/11/22 14:48 Oxygen Delivery Method Room Air 10/11/22 14:48 Oxygen Flow Rate 0 10/11/22 14:48 Pain Level 0 10/11/22 14:48 Comment 10/11/22 12:43 Intake & Output 10/10/22 10/11/22 10/11/22 23:59 11:59 23:59 Intake Total 2000 / 3530 726.667 / 726.667 Output Total 400 / 650 650 / 1200 550 / 1200 Balance 1600 / 2880 76.667 / -473.333 -550 / -473.333 Weight 84.3 kg Intake: IV 2000 / 2500 726.667 / 726.667 Output: Urine 400 / 650 650 / 1200 550 / 1200 Other: Urine Color Yellow Yellow Urine Appearance Clear Clear Clear Urine Odor None None Comment toilet insert emptied. toilet insert emptied. at this time. 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 inhibitor (Chronic) [facility]EM [facility]C 09/29/21 note Peripheral polyneuropathy (Chronic) Per [facility] HEM [facility]C 09/29/21 Osteoarthritis of right knee (Chronic) x-ray 2019 Ortho referral 04/2020 Glaucoma (Chronic) Yasemin Essential hypertension (Chronic 02/13/16) Dx'ed 2016 HCTZ HCTZ-Irbesartan 05/2021 Family history of coronary artery disease (Chronic 10/07/14) Son with [place] and stents x3 at 37yo Hyperlipidemia (Chronic 09/14/12) Total 224; LDL 137 Subclinical hypothyroidism (Chronic 09/25/13) 2010 elevated TSH, normal FT4 2012 normalized Medical History Abnormal bone scan of lumbar spine (~11/2019) L2; F/U study 2021 shows degenerative changes without concern for metastatic disease Chemotherapy-induced neuropathy Hands Encounter for central line placement (~05/15/19) PORT (chemo) Invasive ductal carcinoma of breast (~04/04/19) s/p R breast mastectomy [facility] Onc--05/2019 chemo, rad tx 11/20/2019 [facility] Onc _Dr Valdes 12/18/19 F/U w Dr Rae ([facility]) S/P xrt completion [facility] note from 08/10/21 Breast 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, 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 heart related. (didn't wake up one morning) Heart disease Alcohol abuse Coronary artery disease Brother Alcohol abuse Coronary artery disease Maternal Grandfather Alcohol abuse Coronary artery disease Son Alcohol abuse Coronary artery disease Myocardial infarction Sister Hypertension Paternal Grandmother Stroke Paternal Grandfather Stroke Other Family history of coronary artery disease Social History Smoking/Tobacco Use Status: Never Smoking risk assessment performed?: Yes Alcohol Intake: current Alcohol Intake frequency: holidays/special occasions only Drug use: Never Substance use type: does not use Adopted: No Caregiver/Support person: No Foster care: No Household members: spouse and family Housing: house Number of Children: 3 number of grandchildren: 9 Communication Needs: None Education Level: master's degree Do you need help understanding health information?: Rarely 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, [employer]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 Pets and animals: Yes (2 cats and dog) Sexually active: No Do you think of yourself as: straight/heterosexual Current gender identity: female What is your relationship status?: How often do you talk on the phone with friends or family?: three or more times per week How often do you get together with friends or relatives?: three or more times per week How often do you attend adventist or taoist services?: 4 or more times per year Do you belong to any clubs or organized social groups?: yes Panel score (0-1 are the most socially isolated patients): 4 What type of physical activity do you participate in: walking Duration: 15-30 minutes/day Frequency: 1-2 times per week Nemo/Orthodoxy: Scientology Special nemo needs: No Seatbelt use: always Helmet use: No Drive intox or ride w/intox restaurant delivery driver: No Do you feel safe at home: Yes Do you feel safe in your relationship?: Yes
[2022-10-11] MEDS: Apixaban 5 MG TAB 10 MG PO (17:37)
--- NOTE | 2022-10-11 17:55 | CMDISCH_ITS ---
- If Service Date Differs Date of service: 10/11/22 Time of Service: 17:55 LACE Index Scoring Tool - Questions: Length of Stay (in days): 2 Acuity (Admit via E.D.?): Yes Comorbidities: Metastatic Solid Tumor (Metastatic Breast Ca) E.D. Visits: 2 - Answers: Total Score: 12 Risk of Readmission: High Risk Care Management Discharge Reason for Hospitalization: Metastatic breast cancer to spine, intractable pain Discharge Plan: Nery is discharge home via private vehicle with family. New RX's are printed. Nery will call her PCP office in the morning to schedule a follow up appointment within 2 weeks. No [facility] services are ordered. Nery will follow up with Dr. Cobos from [facility] tomorrow and is discharged with a mid-line to receive her infusion @ [facility]. Patient/Family Education Needs: Review discharge instructions, limitations, medications and plan to follow up with community providers. Discuss ask me three, goals of self care and plan for Mid-Line. Services Needed at Discharge: Infusion Therapy (CM contacted [facility], LMOM indicating patient is being discharged with a mid-line for her infusion tomorrow. Per MD, Midline to be removed after her infusion. [facility] to discuss usp options for continued IV infusions.)
== END 2022-10-11 18:28 | disposition home or self-care (01) ==
LOC: ER 10-10 00:02 → MS 10-11 08:19
PROVIDERS: Admitting Provider Family Medicine; Emergency Provider Emergency Medicine; PCP Nurse Practitioner Adult Health; Visit Provider Family Medicine
DX: G89.3 Neoplasm related pain (acute) (chronic) (principal); C79.51 Secondary malignant neoplasm of bone; C78.7 Secondary malignant neoplasm of liver and intrahepatic bile duct; I82.622 Acute embolism and thrombosis of deep veins of left upper extremity; M54.41 Lumbago with sciatica, right side; Z79.899 Other long term (current) drug therapy; C50.911 Malignant neoplasm of unspecified site of right female breast; C77.3 Secondary and unspecified malignant neoplasm of axilla and upper limb lymph nodes; G62.9 Polyneuropathy, unspecified; I10 Essential (primary) hypertension; E78.5 Hyperlipidemia, unspecified; M84.58XA Pathological fracture in neoplastic disease, other specified site, initial encounter for fracture; M50.30 Other cervical disc degeneration, unspecified cervical region; M19.011 Primary osteoarthritis, right shoulder; Z20.822 Contact with and (suspected) exposure to COVID-19; I25.2 Old myocardial infarction
CPT/HCPCS: 36415; 72158; 76942; 80053; 85027; 87635; 93005; 96361; 96372; 96374; 96375; 96376; 97161; 99285; 71045; 72125; 72156; 72157; 73030; 83735; 84484; 85025; 85610; 85730; 93010; 93971; 99217; 99219; 99225; G0378; J1644; J1885; J2270; J2405

== ENCOUNTER 2022-10-11 19:40 | Outpatient (REF) | payer OTHER, SELFPAY ==
[2022-10-13 13:54] LABS: Cancer Ag 15-3 174 U/mL (<30)
== END 2022-10-11 19:41 | disposition home or self-care (01) ==
LOC: LBN 19:40
PROVIDERS: PCP Nurse Practitioner Adult Health; Visit Provider Internal Medicine
DX: C79.81 Secondary malignant neoplasm of breast (principal)
CPT/HCPCS: 86304; 86300

== ENCOUNTER 2022-10-18 11:13 | Day surgery (SDC) | payer OTHER, SELFPAY ==
--- NOTE | 2022-10-18 06:45 | HPE_ITS ---
Assessment and Plan Assessment and plan (1) Metastatic breast cancer: Status: Acute Assessment and plan: Mrs. Rueda is a pleasant 72 year old with metastatic Breast Cancer who is in need of another port-a-cath placement. We discussed the procedure in detail. Risks, benefits, complications of Mediport placement were reviewed with the patient. Complications include but are not limited to bleeding, infection, wound dehiscence, skin necrosis, seroma, hematoma, injury to subclavian vein or superior vena cava, pneumothorax, venous thrombosis and malfunction of the port. Questions were entertained and answered to his satisfaction and he wished to p roceed. No guarantees were given or implied. Proceed with port placement in the right or left subclavian vein. Will try the left side first. History of Present Illness Narrative: Nery is a 72 year old with a Hx of Breast cancer, s/p mastectomy and chemotherapy. Patient now unfortunately with metastatic disease and in need for further chemotherapy. I was asked to place another port-a-cath. She denies any chest pain or SOB. She did receive Radiation today and feels nauseated and has had a couple of bouts of emesis. She was given Zofran 8 mg Oral Review of Systems All systems reviewed & are unremarkable except as noted in HPI and below PFSH All Active Problems Metastatic breast cancer (Acute) Subclinical hypothyroidism (Chronic 09/25/13) 2010 elevated TSH, normal FT4 2012 normalized Hyperlipidemia (Chronic 09/14/12) Total 224; LDL 137 Family history of coronary artery disease (Chronic 10/07/14) Son with [place] and stents x3 at 37yo Essential hypertension (Chronic 02/13/16) Dx'ed 2016 HCTZ HCTZ-Irbesartan 05/2021 Glaucoma (Chronic) Yasemin Osteoarthritis of right knee (Chronic) x-ray 2019 Ortho referral 04/2020 Peripheral polyneuropathy (Chronic) 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 current use of aromatase inhibitor (Chronic) [facility] HEM [facility]C 09/29/21 note Right thigh pain (Acute) Lumbar radiculopathy (Acute ~2021) R ant thigh following L2; degenerative disease on bone scan Abnormal radionuclide bone scan (Acute ~06/2022) L rib 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 (Acute) Liver metastases (Acute ~09/2022) Metastatic cancer to spine (Acute ~09/2022) C-T-L Atypical endometrial hyperplasia (Acute) Deep vein thrombosis (DVT) of left upper extremity (Acute ~09/2022) Medical History Abnormal bone scan of lumbar spine (~11/2019) L2; F/U study 2021 shows degenerative changes without concern for metastatic disease Chemotherapy-induced neuropathy Hands Encounter for central line placement (~05/15/19) PORT (chemo) Invasive ductal carcinoma of breast (~04/04/19) s/p R breast mastectomy [facility] Onc--05/2019 chemo, rad tx 11/20/2019 [facility] Onc _Dr Valdes 12/18/19 F/U w Dr Rae ([facility]) S/P xrt completion [facility] note from 08/10/21 Breast 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, Hormone receptor positive malignant neoplasm of breast Port-A-Cath in place Removed Surgical History History of appendectomy History of colonoscopy (~05/28/19) History of mastectomy R, [facility] History of tubal ligation Family History Mother , 47 yo,ovarian cancer Ovarian cancer Father , 82 yo. heart related. (didn't wake up one morning) Heart disease Alcohol abuse Coronary artery disease Brother Alcohol abuse Coronary artery disease Maternal Grandfather Alcohol abuse Coronary artery disease Son Alcohol abuse Coronary artery disease Myocardial infarction Sister Hypertension Paternal Grandmother Stroke Paternal Grandfather Stroke Other Family history of coronary artery disease Social History Smoking/Tobacco Use Status: Never Smoking risk assessment performed?: Yes Alcohol Intake: current Alcohol Intake frequency: holidays/special occasions only Drug use: Never Substance use type: does not use Adopted: No Caregiver/Support person: No Foster care: No Household members: spouse and family Housing: house Number of Children: 3 number of grandchildren: 9 Communication Needs: None Education Level: master's degree Do you need help understanding health information?: Rarely 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, [employer]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 Pets and animals: Yes (2 cats and dog) Sexually active: No Do you think of yourself as: straight/heterosexual Current gender identity: female What is your relationship status?: How often do you talk on the phone with friends or family?: three or more times per week How often do you get together with friends or relatives?: three or more times per week How often do you attend yazdanism or gnosticist services?: 4 or more times per year Do you belong to any clubs or organized social groups?: yes Panel score (0-1 are the most socially isolated patients): 4 What type of physical activity do you participate in: walking Duration: 15-30 minutes/day Frequency: 1-2 times per week Nemo/Baptist: Denominational Special nemo needs: No Seatbelt use: always Helmet use: No Drive intox or ride w/intox 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 Do you feel safe at home: Yes Do you feel safe in your relationship?: Yes Meds Allergies and Home Medications Allergies Allergy/AdvReac Type Severity Reaction Status Date / Time No Known Allergies Allergy Verified 10/18/22 12:05 Home Medications Medication Instructions Recorded Confirmed Type bimatoprost 0.01 % eye drops 1 drp ophthalmic (eye) QPM 02/09/19 10/18/22 History (Lumigan) ibuprofen 600 mg tablet 600 mg PO TID-QID PRN pain (s #60 04/05/19 10/18/22 Rx tabs multivitamin 1 cap PO DAILY 05/10/19 10/18/22 History potassium chloride 10 mEq 10 meq PO DAILY 04/08/21 10/18/22 History tablet,extended release(part/cryst) breast prosthesis and bras 1 unit EXT DAILY #1 unit 06/01/21 10/06/22 Rx vitamin B complex 1 tab PO DAILY 06/01/21 10/18/22 History irbesartan 150 1 tab PO .daily in AM HTN #90 tabs 06/11/22 10/18/22 Rx mg-hydrochlorothiazide 12.5 mg tablet Foot Care and Nail Trim #1 ea 07/26/22 10/06/22 Rx gabapentin 100 mg capsule 100 mg PO BID neuropathic pain 07/30/22 10/18/22 Rx #180 caps methocarbamol 500 mg tablet 500 - 1,000 mg PO TID PRN muscle 07/30/22 10/18/22 Rx spasm #40 tabs apixaban 5 mg (74 tabs) tablets in See Rx Instructions PO .COMPLEX 10/11/22 10/18/22 Rx a dose pack #74 dose pk naloxone 4 mg/actuation nasal spray 1 spray intranasal Q2-3M PRN #2 ea 10/11/22 10/18/22 Rx tramadol 50 mg tablet See Rx Instructions .Route 10/11/22 10/18/22 Rx .COMPLEX PRN #40 tabs Exam Const General: comfortable and no acute distress HENMT Head: normocephalic and atraumatic Resp Effort & Inspection: normal respiratory effort Auscultation: clear to auscultation bilaterally Cardio Rate: regular rate Rhythm: regular rhythm
--- NOTE | 2022-10-18 06:57 | W.PM.OP ---
Date of service: 10/18/22 Time of Service: 14:48 Operative Note Operative Note DATE OF PROCEDURE: 10/18/22 PRE-OP DIAGNOSIS: Metastatic Breast cancer POST-OP DIAGNOSIS: same PROCEDURE: Right Subclavian vein port-a-cath placement SURGEON: Dot Hull ANESTHESIA TYPE: Local By Surgeon and MAC Refer to Anesthesia Record PATHOLOGY: none sent COMPLICATIONS: None Patient was transported to: same day Patient's condition: stable Indications: Nery is a pleasant 72 year old female with metastatic Breast cancer who comes in today for another Port. Risks, benefits, complications of Mediport placement were reviewed with the patient. Complications include but are not limited to bleeding, infection, wound dehiscence, skin necrosis, seroma, hematoma, injury to subclavian vein or superior vena cava, pneumothorax, venous thrombosis and malfunction of the port. Questions were entertained and answered to his satisfaction and he wished to proceed. No guarantees were given or implied. Findings: unable to canulate the left subclavian vein with the guidewire Procedure Description: After informed consent was obtained the patient was taken to the operating room and placed in supine position. The patient was placed under deep sedation and once comfortable the right and left chest were prepped and draped in a sterile surgical fashion. At this point a timeout was done. The patient's name, date of , procedure to be done, potential complications, DVT prophylaxis, antibiotic given were all reviewed. Fire risk was assessed. Next 2% lidocaine mixed with half percent Marcaine with epi was injected around the clavicle on the left side as well as along the dermis and into the subcutaneous tissue of her chest wall. A power port kit was opened and using the large 18-gauge needle the subclavian vein was found and venous blood was easily aspirated. The syringe was removed and the guidewire was placed, but would only go in slightly before there was resistance. A second attempt was done and the guidewire met with resistance. The procedure was aborted on the left. 2% lidocaine mixed with half percent Marcaine with epi was then injected around the clavicle on the right side as well as along the dermis and into the subcutaneous tissue of her chest wall. The large 18-gauge needle was placed into the subclavian vein and venous blood was easily aspirated. The syringe was removed and the guidewire was placed without any difficulty into the subclavian vein. The needle was removed. Fluoroscopy was then done which confirmed the placement of the guidewire. A small incision was made in the skin with the guidewire entered. An incision was made with a 15 blade. Using cautery a pocket was created for the port. Using the tunneler the catheter was tunneled from the newly created pocket to the guidewire. The dilator and sheath were then placed over the guidewire into the subclavian vein. The dilator and guidewire were removed. The catheter was then advanced through the sheath into the subclavian vein. While holding the catheter in place at the skin the sheath was removed. Fluoroscopy was then used again and the catheter was noted to be within the ventricle and so it was pulled up until it was just above the atrium. The catheter was then cut to the right length and attached to the port. The port was placed into the pocket and fit snugly. Blood was aspirated from the port without difficulty. The port was then flushed with another 10 cc of heparin. The skin was closed using 4-0 Vicryl. The skin was cleaned and dried and skin affix was applied to the port site as well as to the small stab incision underneath the clavicle. The patient was woken up and taken back to same day surgery in stable condition. Sponge, instrument, and needle counts were correct at the end of the case. A stat chest x-ray was ordered and was pending at the time of this dictation.
--- NOTE | 2022-10-18 06:59 | W.PM.DSUDISC ---
Date of service: 10/18/22 Time of Service: 14:54 Discharge Plan Disposition Patient Disposition: Home Discharge Details Reason For Visit: mediport placement Attending Provider: Dot Hull Primary Care Provider: Mary Chinchilla Home Meds and New Rx's Prescriptions: Continued Lumigan 0.01 % drops 1 drp OP QPM vitamin B complex Tablet 1 tab PO DAILY breast prosthesis and bras 1 unit EXT DAILY Qty: 1 0RF Rx Instructions: dispense one weighted breast prosthesis, right and 3 bras s/p R mastectomy, breast CA Z90.11, C50.911 gabapentin 100 mg capsule 100 mg PO BID Qty: 180 3RF Rx Instructions: R thigh radicular lumbar spine pain (L2) methocarbamol 500 mg tablet 500 - 1,000 mg PO TID PRN (Reason: muscle spasm) Qty: 40 0RF Rx Instructions: Back muscle spasm irbesartan-hydrochlorothiazide 150-12.5 mg tablet 1 tab PO .daily in AM Qty: 90 3RF Rx Instructions: BP potassium chloride 10 mEq tablet,ER particles/crystals 10 meq PO DAILY Rx Instructions: 04/08/21 per [facility] [place] [facility] [place] Foot Care and Nail Trim See Rx Instructions .Route .MEDSUPPLY Qty: 1 0RF Rx Instructions: PRN for 1 year (07/26/2022) Thank you. ibuprofen 600 mg tablet 600 mg PO TID-QID PRN (Reason: pain (s) Qty: 60 4RF multivitamin Capsule 1 cap PO DAILY tramadol 50 mg tablet See Rx Instructions .ROUTE .COMPLEX PRNQty: 40 0RF Rx Instructions: 50 to 100 mg qid prn pain naloxone 4 mg/actuation spray,non-aerosol 1 spray intranasal Q2-3M PRNQty: 2 0RF Rx Instructions: spray 1 dose into ONE nostril; alternate nostrils w each dose until help arrives apixaban 5 mg (74 tabs) tablets,dose pack See Rx Instructions .ROUTE .COMPLEX Qty: 74 0RF Rx Instructions: orally per package directions Discharge Instructions Additional Instructions: Activity at Home after surgery: 1. As tolerated 2. do not keep the right arm above your head for a long period of time as it may kink the catheter and cause a clot Diet, Nutrition, & wound healin. As tolerated Pain Medications: 1. Tylenol 650mg every 6 hours as needed and Ibuprofen 600 mg every 6 hours as needed. You may alternate between the 2 medications every 3 hours 2. If a narcotic has been prescribed take as directed only for breakthrough pain For Constipation: 1. Take Milk of Magnesia or MiraLax as needed for constipation Other: 1. You may shower daily. Do not scrub the incisions 2. Do not soak the incisions for 1 week 3. You may alternate ice and heat as needed for pain and swelling Wound Care: 1. Keep the incisions clean and dry Please call our office if you develop: 1. Fevers >101.5 2. Nausea or Vomiting 3. Worsening pain 4. Redness and thick discharge from the wounds If after hours please call the Hospital at and ask to speak to the on-call surgeon Stand Alone Forms: Anesthesia Discharge InstJose Partida (DSU) Activity:: Activity as Tolerated Diet:: As Tolerated Discharge Orders Discharge Orders: Discharge Order (Routine); Ordered 10/18/22 Ordered By: Dot Hull DS: Diagnosis Discharge Diagnosis (1) Metastatic breast cancer: Status: Acute
[2022-10-18 11:51] VITALS: BP 136/86; PULSE 100; RESP 20; TEMP 36.5; O2SAT 97
[2022-10-18] MEDS: Ondansetron O.D.T. 4 MG TABEF 8 MG PO (12:04)
[2022-10-18] MEDS: Lactated Ringers 1,000 ML 80 ML IV (12:40)
--- NOTE | 2022-10-18 12:41 | ANES.PREOP_ITS ---
General Info Date of Service Date Performed: 10/18/22 Height: 5 ft Weight: 82.5 kg Body Mass Index (BMI): 35.5 Surgical Procedure: Operation Date: 10/18/22 12:40 Proposed Procedure Side Surgeon p Subclavian Port-A-Cath Placement Right Dot Hull MD Meds Allergies and Home Medications Allergies Allergy/AdvReac Type Severity Reaction Status Date / Time No Known Allergies Allergy Verified 10/18/22 12:05 Home Medication Medication Instructions Recorded bimatoprost 0.01 % eye drops 1 drp ophthalmic (eye) QPM 02/09/19 (Lumigan) ibuprofen 600 mg tablet 600 mg PO TID-QID PRN pain (s #60 04/05/19 tabs multivitamin 1 cap PO DAILY 05/10/19 potassium chloride 10 mEq 10 meq PO DAILY 04/08/21 tablet,extended release(part/cryst) breast prosthesis and bras 1 unit EXT DAILY #1 unit 06/01/21 vitamin B complex 1 tab PO DAILY 06/01/21 irbesartan 150 1 tab PO .daily in AM HTN #90 tabs 06/11/22 mg-hydrochlorothiazide 12.5 mg tablet Foot Care and Nail Trim #1 ea 07/26/22 gabapentin 100 mg capsule 100 mg PO BID neuropathic pain 07/30/22 #180 caps methocarbamol 500 mg tablet 500 - 1,000 mg PO TID PRN muscle 07/30/22 spasm #40 tabs apixaban 5 mg (74 tabs) tablets in See Rx Instructions PO .COMPLEX 10/11/22 a dose pack #74 dose pk naloxone 4 mg/actuation nasal spray 1 spray intranasal Q2-3M PRN #2 ea 10/11/22 tramadol 50 mg tablet See Rx Instructions .Route 10/11/22 .COMPLEX PRN #40 tabs Current Visit Medications: Current Medications Generic Name Dose Route Start Last Admin Trade Name Freq PRN Reason Stop Dose Admin Ringer's Solution 1,000 mls @ 80 mls/hr 10/18/22 06:00 IV 11/14/22 23:59 INFUSION AN Cefazolin Sodium/Dextrose 2 gm in 50 mls @ 100 mls/hr 10/18/22 06:00 Ancef Duplex IVPB 10/18/22 16:00 PREOP AN Ondansetron HCl 4 mg/ Sodium 52 mls @ 200 mls/hr 10/18/22 07:00 Chloride IVPB Q6H PRN PRN IV Miscellaneous Supplies 1 each 10/18/22 06:00 Iv Access IV 11/14/22 23:59 DIRECTED AN Sodium Chloride 0 ml 10/18/22 06:00 Normal Saline Flush 10 Ml Syr IV 11/14/22 23:59 PRN PRN Sodium Chloride 0 ml 10/18/22 06:00 Normal Saline 10 Ml Vial IJ 11/14/22 23:59 DIRECTED PRN Sterile Water 0 ml 10/18/22 06:00 Water,Injection,Sterile 10 Ml Vial IJ 11/14/22 23:59 DIRECTED PRN Tramadol HCl 50 mg 10/18/22 07:00 Tramadol 50 Mg Tab PO Q6H PRN PRN Pain PFSH Active Problems Active Problems: Problem Status Onset Code Metastatic breast cancer C50.919 Subclinical hypothyroidism 09/25/13 E03.9 Hyperlipidemia 09/14/12 E78.5 Family history of coronary artery disease 10/07/14 Z82.49 Essential hypertension 02/13/16 I10 Glaucoma H40.9 Osteoarthritis of right knee M17.11 Peripheral polyneuropathy G62.9 jail current use of aromatase inhibitor Z79.811 Right thigh pain M79.651 Lumbar radiculopathy ~2021 M54.16 Abnormal radionuclide bone scan ~06/2022 R94.8 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 C77.3 Liver metastases ~09/2022 C78.7 Metastatic cancer to spine ~09/2022 C79.51 Atypical endometrial hyperplasia N85.02 Deep vein thrombosis (DVT) of left upper extremity ~09/2022 I82.622 Medical History Medical History Abnormal bone scan of lumbar spine (~11/2019) L2; F/U study 2021 shows degenerative changes without concern for metastatic disease Chemotherapy-induced neuropathy Hands Encounter for central line placement (~05/15/19) PORT (chemo) Invasive ductal carcinoma of breast (~04/04/19) s/p R breast mastectomy [facility] [place] Onc--05/2019 chemo, rad tx 11/20/2019 [facility] Onc _Dr Valdes 12/18/19 F/U w Dr Rae ([facility] [place]) S/P xrt completion [facility] [place] note from 08/10/21 Breast 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, Hormone receptor positive malignant neoplasm of breast Port-A-Cath in place Removed Surgical History Surgical History History of appendectomy History of colonoscopy (~05/28/19) History of mastectomy R, [facility] [place] History of tubal ligation Tobacco Smoking/Tobacco Use Status: Never Passive smoking exposure: No Alcohol Alcohol Intake: current Alcohol intake frequency: holidays/special occasions only Substance Use Substance use: Never Substance use type: does not use Vital Signs and Lab Results Vital Signs Most Recent Vital Signs in EMR: Most Recent Vital Signs Temp Pulse Resp BP Pulse Ox 36.5 C 100 H 20 136/86 97 10/18/22 11:51 10/18/22 11:51 10/18/22 11:51 10/18/22 11:51 10/18/22 11:51 Lab Results Blood Type / Crossmatch: No Data to Display Complete Blood Count: White Blood Count 4.91 10^3/uL (4.4-10.8) 10/10/22 05:52 Red Blood Count 3.63 10^6/uL (3.93-5.22) L 10/10/22 05:52 Hemoglobin 11.8 g/dL (11.2-15.7) 10/10/22 05:52 Hematocrit 35.7 % (36.0-46.0) L 10/10/22 05:52 Platelet Count 125 10^3/uL (130-400) L 10/10/22 05:52 Complete Metabolic Panel: Sodium 139 mmol/L (136-145) 10/09/22 21:55 Potassium 3.2 mmol/L (3.5-5.1) L 10/09/22 21:55 Chloride 102 mmol/L (98-107) 10/09/22 21:55 Carbon Dioxide 27.2 mmol/L (21.0-32.0) 10/09/22 21:55 BUN 28 mg/dL (7-18) H 10/09/22 21:55 Creatinine 1.3 mg/dL (0.55-1.02) H 10/09/22 21:55 Est GFR (CKD-EPI 2020) 43.42 (mL/min/1.73m2) 10/09/22 21:55 Magnesium 1.9 mg/dL (1.8-2.4) 10/10/22 05:52 Calcium 9.4 mg/dL (8.5-10.1) 10/09/22 21:55 Albumin 3.6 g/dL (3.4-5.0) 10/09/22 21:55 Glucose 114 mg/dL (74-106) H 10/09/22 21:55 Liver Function Panel: Alanine Aminotransferase (ALT/SGPT) 126 U/L (14-59) H 10/09/22 21:55 Aspartate Amino Transf (AST/SGOT) 207 U/L (15-37) H 10/09/22 21 :55 Coagulation Panel: INR International Normalized Ratio 1.1 (0.9-1.1) 10/10/22 05:5 2 Prothrombin Time 10.6 sec (9.3-11.0) 10/10/22 05:52 Activated Partial Thromboplast Time 17.8 sec (21.0-27.5) L 10/09/22 21:55 Cardiac Panel: Troponin I < 50 ng/L (<or=60) 10/10/22 Arterial Blood Gas: No Data to Display Venous Blood Gas: No Data to Display Pancreas Panel: Lipase 209 U/L (73-393) 10/06/22 06:45 Thyroid Panel: No Data to Display Infectious Disease: Coronavirus (COVID-19)(PCR) Negative (Negative) 10/10/22 00:05 Coronavirus 2019 Source Nasal/Nares 10/10/22 00:05 Blood Cultures: No Data to Display Toxicology Panel: No Data to Display Imaging and Studies Imaging and Studies Study information below may be from another EMR and interpreted by another provider. Please see original notes in EMR for more complete details. EKG Summary: 10/09/2022: Conclusion Sinus rhythm...normal P axis, V-rate 60- 99 Inferior infarct, old...Q >35mS, II III aVF sinus rhtyhm, left axis, normal intervals Echocardiogram Summary: 05/11/2019: Summary: 1. Left ventricle: The cavity size was normal. Wall thickness was normal. Systolic function was normal. The estimated ejection fraction was 60-65%. Wall motion was normal; there were no regional wall motion abnormalities. Diastolic parameters were normal. Global longitudinal strain was normal, -17%. 2. Mitral valve: There was mild regurgitation. 3. Right ventricle: The cavity size was normal. Wall thickness was normal. Systolic function was normal. Anesthesia Assessment and Plan Anesthesia History Personal History: No History of Anesthesia Complications Family History: No Family History of Anesthesia Complications Exercise Tolerance Exercise Tolerance: Metabolic Equivalents>4 Pertinent Negatives Pertinent Negatives: No Symptoms of GERD, No Major Cardiovascular Symptoms or Complaints and No Major Pulmonary Symptoms or Complaints Cardiac & Pulmonary Exam Cardiac Exam: Normal S1/S2 Heart Sounds Pulmonary Exam: Clear Bilateral Breath Sounds Implantable Cardiac Device Does patient have a Pacemaker or an ICD?: No Airway Exam Known Difficult Airway: No Mallampati Class: 1 Mouth Opening: Normal (> 3cm) Thyromental Distance: Greater than 3 cm Neck Range of Motion: Full ROM Neck Circumference: Normal Teeth Condition: Normal Dentition ASA Classification ASA Score: ASA 3 Emergency Case?: No NPO Status NPO Status: NPO Clears >2 hours, Solids >8 hours Anesthesia Plan Resuscitation Status: Full Code Anesthesia Technique: MAC Anesthesia Airway Planned: Natural Airway Monitors Used: Standard Monitors
[2022-10-18 12:58] VITALS: BMI 35.5
[2022-10-18] MEDS: ceFAZolin 2 GM/50 ML BAG IVPB (13:50)
--- NOTE | 2022-10-18 14:23 | DI.RAD_ITS ---
Exam(s) RF LINE PLACEMENT OR EXAM: RF LINE PLACEMENT OR CLINICAL HISTORY: METASTATIC BREAST CANCER. TECHNIQUE: 2D and realtime digital imaging was performed. COMPARISON: CR,XR XR CHEST 1V IN DI DEPT from 10/09/2022 FINDINGS: Fluoroscopy was provided for Dr. Hull for guidance with placing a central venous catheter. A sing le hard copy image shows a right subclavian catheter with tip extending into the IVC. Please see procedure note for details. Fluoro time: 22.1seconds RADIATION DOSE DELIVERED: sarah Roman=2.0 mGy
[2022-10-18] MEDS: Lidocaine 2% Multi-Dose 50 ML VIAL (14:30)
[2022-10-18] MEDS: Bupivacaine 0.5% Pres-Free W/EPI 30 ML VIAL (14:30)
[2022-10-18] MEDS: Heparin 500 UNITS/5 ML SYRINGE (14:30)
[2022-10-18 14:42] VITALS: BP 127/79; PULSE 94; RESP 18; TEMP 36.2; O2SAT 96
--- NOTE | 2022-10-18 15:00 | DI.RAD_ITS ---
Exam(s) XR PORTABLE CHEST AP POST LINE EXAM: XR PORTABLE CHEST AP POST LINE CLINICAL HISTORY: port placement TECHNIQUE: 2D digital imaging was performed. COMPARISON: CR,XR XR CHEST 1V IN DI DEPT from 10/09/2022 FINDINGS: A port has been placed over the right chest with the tip projecting in the superior vena cava. LUNGS: Clear. No pleural abnormality seen. HEART: Normal size. AORTA: Normal diameter. BONES: Unremarkable for age. Soft tissues: Stable elevated right diaphragm. IMPRESSION: Satisfactory port placement. DATA REPOSITORY: RADIATION DOSE DELIVERED:
[2022-10-18 15:06] VITALS: BP 126/82; PULSE 92; RESP 18; TEMP 36.5; O2SAT 95
--- NOTE | 2022-10-18 15:06 | W.ANESPOSTOP ---
Postoperative Evaluation Date, Time and Location Date Performed: 10/18/22 Time Performed: 14:45 Patient Location: Day Surgery Unit Vital Signs Most Recent Imported Vital Signs: Most Recent Vital Signs Temp Pulse Resp BP Pulse Ox 36.2 C L 94 H 18 127/79 96 10/18/22 14:42 10/18/22 14:42 10/18/22 14:42 10/18/22 14:42 10/18/22 14:42 Pain Score Most Recent Pain Score: Most Recent Pain Score Pain Level 0 10/18/22 14:42 Assessment Mental Status: Awake (Alert & Oriented to Patient Baseline) Airway and Respiratory Function: Patent airway with normal (patient baseline) respiratory exam Cardiovascular Function: Hemodynamically Stable Hydration Status: Adequately Hydrated Nausea & Vomiting: No Nausea or Vomiting Pain: Pt. Denies Any Pain Peripheral Nerve Block: Patient did not receive a nerve block
== END 2022-10-18 15:30 | disposition home or self-care (01) ==
PROVIDERS: PCP Nurse Practitioner Adult Health; Visit Provider Surgery
PROC: (CPT 36561; principal; 2022-10-18 12:30)
DX: C78.7 Secondary malignant neoplasm of liver and intrahepatic bile duct (principal); C79.51 Secondary malignant neoplasm of bone; C77.3 Secondary and unspecified malignant neoplasm of axilla and upper limb lymph nodes; I10 Essential (primary) hypertension; E03.9 Hypothyroidism, unspecified; Z85.3 Personal history of malignant neoplasm of breast
CPT/HCPCS: 36561; 71045; 77001; C1788; J0690; J2250; J3010

== ENCOUNTER → 2022-10-19 02:27 | Outpatient (CLI) | payer OTHER, SELFPAY ==
--- NOTE | 2022-10-19 07:45 | DI.MRI_ITS ---
Exam(s) MR BRAIN WO/W EXAM: MR BRAIN WO/W CLINICAL HISTORY: METASTATIC BREAST CA, C50.919, ? INTRACRANIAL METASTATIC DISEASE TECHNIQUE: Multiplanar multisequence MRI of the brain was performed. CONTRAST MATERIAL: IV Contrast: 17 mL of Dotarem contrast administered. COMPARISON: No exams were available for comparison FINDINGS: VENTRICLES AND EXTRA AXIAL SPACES: Normal in size and morphology for the patient's age. HEMORRHAGE: None. CEREBRAL PARENCHYMA: No focus of restricted diffusion to suggest acute infarct. No space-occupying le john identified. There are multiple areas of hyperintense signal in the white matter on the T2 FLAIR images consistent with small vessel ischemic disease. MIDLINE SHIFT: None. BRAINSTEM/CEREBELLUM: Normal. CALVARIUM: Normal. ENHANCEMENT: No suspicious enhancement identified. VISUALIZED PARANASAL SINUSES/MASTOIDS: Clear. HOH OF PASTOR: Normal flow void. PITUITARY GLAND: Unremarkable. OTHER FINDINGS: IMPRESSION: 1. Age-related cerebral atrophy and small vessel ischemic disease. 2. No evidence of intracranial metastatic disease. DATA REPOSITORY:
[2022-10-19] MEDS: Normal Saline Flush 10 ML SYR IVP (07:57)
[2022-10-19] MEDS: Gadoterate meglumine 20 ML VIAL 17 ML IVP (07:58)
== END ==
PROVIDERS: PCP Nurse Practitioner Adult Health; Visit Provider Internal Medicine
DX: G31.1 Senile degeneration of brain, not elsewhere classified (principal); I67.89 Other cerebrovascular disease
CPT/HCPCS: 70553

== ENCOUNTER 2022-11-09 03:23 | Outpatient (RCR) | payer OTHER, SELFPAY ==
[2022-10-19] MEDS: Normal Saline Flush 10 ML SYR IVP (07:25)
[2022-10-19 12:23] LABS: Abs Immature Grans 0.03 10^3/uL (0.0-0.06); Absolute Basophil Count 0.04 10^3/uL (0.0-0.2); Absolute Eosinophil Count 0.03 10^3/uL (0.0-0.7); Absolute Lymphocyte Count 1.05 10^3/uL (1.2-3.4); Absolute Neutrophil Count 3.73 10^3/uL (1.2-6.7); Basophils % 0.7; Eosinophils % 0.5; HCT 39.1 % (36.0-46.0); HGB 12.9 g/dL (11.2-15.7); Immature Grans % 0.5; Lymphocytes % 18.5; MCH 32.4 pg (27.0-33.0); MCV 98 fL (80-95); MPV 11.5 fL (8.0-11.0); Monocytes % 14.1; Neutrophils % 65.7; Platelet Count 164 10^3/uL (130-400); RBC 3.98 10^6/uL (3.93-5.22); RDW 14.6 % (11.7-14.6); RDW-SD 53.1 fL; WBC 5.68 10^3/uL (4.4-10.8)
[2022-10-19 12:38] LABS: ALT 112 U/L (14-59); AST 207 U/L (15-37); Albumin 3.1 g/dL (3.4-5.0); Alkaline Phosphatase 315 U/L (46-116); Anion Gap 9.8 mmol/L (3-11); BUN 19 mg/dL (7-18); Bilirubin, Total 1.3 mg/dL (0.2-1.0); CO2 26.2 mmol/L (21.0-32.0); CREATININE 0.9 mg/dL (0.55-1.02); Calcium 8.3 mg/dL (8.5-10.1); Chloride 102 mmol/L (98-107); Glucose 97 mg/dL (74-106); Potassium 3.5 mmol/L (3.5-5.1); Sodium 138 mmol/L (136-145); Total Protein 6.8 g/dL (6.4-8.2)
[2022-10-26] MEDS: Normal Saline Flush 10 ML SYR IVP (08:17)
[2022-10-26 08:30] LABS: Abs Immature Grans 0.03 10^3/uL (0.0-0.06); Absolute Eosinophil Count 0.02 10^3/uL (0.0-0.7); Absolute Neutrophil Count 4.25 10^3/uL (1.2-6.7); Eosinophils % 0.4; HCT 40.3 % (36.0-46.0); HGB 13.4 g/dL (11.2-15.7); Immature Grans % 0.6; Lymphocytes % 9.4; MCH 32.5 pg (27.0-33.0); MCHC 33.3 % (32.0-36.0); MCV 98 fL (80-95); MPV 11.5 fL (8.0-11.0); Monocytes % 9.4; Neutrophils % 80.2; Platelet Count 144 10^3/uL (130-400); RBC 4.12 10^6/uL (3.93-5.22); RDW 14.8 % (11.7-14.6); RDW-SD 52.9 fL
[2022-10-26 08:48] LABS: ALT 122 U/L (14-59); AST 276 U/L (15-37); Albumin 2.9 g/dL (3.4-5.0); Alkaline Phosphatase 350 U/L (46-116); Anion Gap 10.2 mmol/L (3-11); BUN 24 mg/dL (7-18); CO2 25.8 mmol/L (21.0-32.0); CREATININE 1.1 mg/dL (0.55-1.02); Calcium 8.4 mg/dL (8.5-10.1); Chloride 102 mmol/L (98-107); Estimated GFR 53.06 (mL/min/1.73m2); Glucose 147 mg/dL (74-106); Potassium 3.2 mmol/L (3.5-5.1); Sodium 138 mmol/L (136-145); Total Protein 6.6 g/dL (6.4-8.2)
[2022-11-02] MEDS: Normal Saline Flush 10 ML SYR IVP (12:29)
[2022-11-02 12:47] LABS: Abs Immature Grans 0.01 10^3/uL (0.0-0.06); HCT 38.9 % (36.0-46.0); MCH 32.5 pg (27.0-33.0); MCHC 33.4 % (32.0-36.0); MCV 97 fL (80-95); MPV 12.5 fL (8.0-11.0); RDW-SD 50.4 fL; WBC 2.26 10^3/uL (4.4-10.8)
[2022-11-02 12:51] LABS: ALT 201 U/L (14-59); AST 314 U/L (15-37); Albumin 2.7 g/dL (3.4-5.0); Alkaline Phosphatase 411 U/L (46-116); Anion Gap 7.8 mmol/L (3-11); BUN 34 mg/dL (7-18); Bilirubin, Total 1.3 mg/dL (0.2-1.0); CO2 27.2 mmol/L (21.0-32.0); Calcium 8.4 mg/dL (8.5-10.1); Chloride 107 mmol/L (98-107); Estimated GFR 59.49 (mL/min/1.73m2); Glucose 112 mg/dL (74-106); Potassium 3.6 mmol/L (3.5-5.1); Sodium 142 mmol/L (136-145); Total Protein 6.4 g/dL (6.4-8.2)
[2022-11-02 13:06] LABS: Absolute Lymphocyte Count 0.93 10^3/uL (1.2-3.4); Absolute Monocyte Count 0.25 10^3/uL (0.1-0.8); Absolute Neutrophil Count 1.06 10^3/uL (1.2-6.7); Platelet Count 59 10^3/uL (130-400)
[2022-11-02 13:07] LABS: Absolute Basophil Count 0.02 10^3/uL (0.0-0.2); Diff Comment Manual Differential; Polychromasia Present
[2022-11-09] MEDS: Normal Saline Flush 10 ML SYR IVP (09:48)
[2022-11-09 10:10] LABS: Abs Immature Grans 0.02 10^3/uL (0.0-0.06); Absolute Basophil Count 0.01 10^3/uL (0.0-0.2); Absolute Eosinophil Count 0.03 10^3/uL (0.0-0.7); Absolute Lymphocyte Count 0.79 10^3/uL (1.2-3.4); Absolute Monocyte Count 0.93 10^3/uL (0.1-0.8); Absolute Neutrophil Count 3.32 10^3/uL (1.2-6.7); Basophils % 0.2; Eosinophils % 0.6; HCT 36.6 % (36.0-46.0); HGB 12.2 g/dL (11.2-15.7); Immature Grans % 0.4; Lymphocytes % 15.5; MCH 33.2 pg (27.0-33.0); MCHC 33.3 % (32.0-36.0); MCV 100 fL (80-95); MPV 11.8 fL (8.0-11.0); Monocytes % 18.2; Neutrophils % 65.1; Nucleated RBC 0.4 % (0.0-0.3); Platelet Count 193 10^3/uL (130-400); RBC 3.68 10^6/uL (3.93-5.22); RDW 16.5 % (11.7-14.6); RDW-SD 51.4 fL
[2022-11-09 10:27] LABS: ALT 156 U/L (14-59); AST 239 U/L (15-37); Albumin 2.5 g/dL (3.4-5.0); Alkaline Phosphatase 396 U/L (46-116); Anion Gap 9.6 mmol/L (3-11); BUN 47 mg/dL (7-18); Bilirubin, Total 1.3 mg/dL (0.2-1.0); CO2 27.4 mmol/L (21.0-32.0); CREATININE 1.6 mg/dL (0.55-1.02); Calcium 8.1 mg/dL (8.5-10.1); Chloride 107 mmol/L (98-107); Estimated GFR 33.84 (mL/min/1.73m2); Glucose 127 mg/dL (74-106); Potassium 3.3 mmol/L (3.5-5.1); Sodium 144 mmol/L (136-145); Total Protein 6.1 g/dL (6.4-8.2)
== END 2022-11-13 23:59 | disposition home or self-care (01) ==
LOC: INF 03:23
PROVIDERS: PCP Nurse Practitioner Adult Health; Visit Provider Internal Medicine
DX: C50.919 Malignant neoplasm of unspecified site of unspecified female breast (principal); Z45.2 Encounter for adjustment and management of vascular access device
CPT/HCPCS: 36591; 80053; 96523; 85025

== ENCOUNTER 2022-11-25 11:10 | Inpatient (IN) | payer OTHER, SELFPAY ==
[2022-11-25] VITALS (7 sets, daily range): BP systolic 101–152; BP diastolic 58–75; PULSE 80–113; RESP 12–20; TEMP 36.2–37.3; O2SAT 89–98
--- NOTE | 2022-11-25 11:29 | W.ED.GENAD ---
Discharge Plan Disposition Patient Disposition: Admit to [facility] Condition: Stable Discharge Details Clinical Impression: Generalized weakness, Liver metastases, Metastatic breast cancer, Bone metastases, Acute dehydration, Bilateral pleural effusion Admit Date/Time: 11/28/22 17:30 Admit Provider: Kerri Barbosa Attending Provider: Kerri Barbosa Primary Care Provider: Mary Chinchilla ED Provider: Ainsley Hansen Discharge Data Discharge Date/Time-TO BE ENTERED AT DEPARTURE: 11/25/22 16:42 Medical Decision Making 1130 -- 72-year-old female with a history of metastatic breast cancer to liver and bone, DVTs of the left arm on apixaban with chronic shoulder and back pain presents with shortness of breath and worsening back pain over the past week, generalized weakness and decreased appetite over the past 2 days since her last chemotherapy treatment. Heart rate elevated to 113. Blood pressure moderately elevated. Patient appears generally fatigued. She has dry mucous membranes. Abdomen minimally distended but nontender. Back is normal to inspection. She does appear to have nonpitting edema to bilateral lower extremities. We will place an IV, bolus IV fluids, screening labs, Fluvid, ct chest, abdomen, and pelvis and give IV dilaudid, IV zofran and reassess. 1530 -- Labs and imaging reviewed. Normal white blood cell count. Stable elevation of liver enzymes. Bilirubin 6.2, compared to 2.9 two days ago. Troponin negative. Urinalysis negative for infection. Fluvid negative. CT chest abdomen pelvis notes bilateral pleural effusions and ascites but no other acute findings. Patient assessed at bedside and her pain has improved. Daughter Quita at bedside who notes that she is concerned about patient going home due to her decreased p.o. intake and generalized weakness. Patient does agree that she would benefit from IV fluids, PT and palliative care consult. Oxygen saturation noted to be 89% on room air. She denies any chest pain or shortness of breath. This may be secondary to pleural effusions and after Dilaudid. We will place patient on 1 L nasal cannula oxygen to keep oxygen saturation above 90%. Case discussed with hospitalist who accepts patient for admission. Medical Records Medical records reviewed: Yes I reviewed the patient's medical records. Imaging Data Radiologic Study: Radiologist's impression: CT Chest PE ABD PELVIS W CLINICAL HISTORY: ? . mid back pain, sob, r/o PE, worsening mets TECHNIQUE:? Imaging Protocol:? Axial CT angiography was performed with multi-slice acquisition and multi-planar and/or 3D reconstructions. CONTRAST MATERIAL:? Intravenous:? Omnipaque 350contrast volume:100 mL COMPARISON:? CT CT CHEST PE ABD ? PELVIS W from 10/06/2022 CR XR PORTABLE CHEST AP POST LINE from 10/18/2022 FINDINGS: CHEST: Tracheobronchial tree: Patent where visualized. Pulmonary parenchyma: There is poor inspiration.? There are bilateral pleural effusions.? There is a large left and moderate right pleural effusion.? There is consolidation seen in both the right and left lobes.? There are areas of air trapping in the lungs.? No architectural distortion. Pulmonary Arteries: No evidence of filling defect to suggest pulmonary emboli. Mediastinum and Malina: No dominant adenopathy or fluid collection. The esophagus is unremarkable. Visualized thyroid gland: Unremarkable.? Pleura: There is no pneumothorax. Heart: The heart is not dilated. Coronary artery calcifications are present. No pericardial effusion. Aorta: Thoracic aorta non-dilated. No evidence of dissection.? Atherosclerosis is present. Bones: There is again seen osseous sclerotic metastatic disease. Soft tissues: The fluid collection in the soft tissues in the right anterior chest wall is unchanged. Tubes, Catheters, and Lines: There is a right sided central venous catheter in place.? ABDOMEN: Liver: There is diffuse hepatic metastatic disease again noted. Portal, Superior Mesenteric, and Splenic Veins: Unremarkable.? Gallbladder and Biliary Tract: No radiodense calculus or dilation. Pancreas: Normal density, no abnormal calcifications or inflammatory process. Spleen: Normal. Adrenals: No masses seen. Kidneys: Normal size, contour and axis. No radiodense stones or obstructive uropathy. No masses seen. Abdominal Aorta: Abdominal portion non-dilated. Atherosclerosis is present. Bowel: No obstruction or bowel wall thickening. Appendix is unremarkable. There is diverticulosis of the colon but no evidence of acute diverticulitis. Peritoneal Cavity: Interval development of moderate amount of abdominal pelvic ascites. No free air. Lymph Nodes: Within normal limits. Bones: There is osseous metastatic disease present. There is again seen an L2 compression fracture. Soft Tissues: There is a small fat containing umbilical hernia. PELVIS: Bladder: Symmetric distention, no gross wall thickening. Reproductive Organs: A calcified uterine fibroid is present. Lymph Nodes: Within normal limits. Bones: Within normal limits. IMPRESSION: 1. No evidence of a pulmonary embolism or thoracic aortic dissection. 2. Interval development of bilateral pleural effusions and basilar infiltrates which may represent atelectasis or pneumonia. 3. Interval development of moderate abdominal pelvic ascites. 4. Osseous and hepatic metastatic disease. 5. No acute pulmonary process. 6. No acute abdominal or pelvic process. Lab Data Lab results reviewed: Yes I reviewed the patient's lab results. Labs: Laboratory Tests Range/Units 11/25/22 11/25/22 11/25/22 12:18 12:18 14:40 WBC (4.4-10.8) 10^3/uL 8.95 RBC (3.93-5.22) 10^6/uL 3.36 L Hgb (11.2-15.7) g/dL 11.7 Hct (36.0-46.0) % 34.0 L MCV (80-95) fL 101 H MCH (27.0-33.0) pg 34.8 H MCHC (32.0-36.0) % 34.4 RDW (11.7-14.6) % 21.5 H Plt Count (130-400) 10^3/uL 144 MPV (8.0-11.0) fL 11.2 H Immature Gran % 0.4 Neutrophils % 94.5 Lymphocytes % 2.6 Monocytes % 2.0 Eosinophils % 0.3 Basophils % 0.2 Nucleated RBC % (0.0-0.3) % 0.0 Absolute Neutrophils (1.2-6.7) 10^3/uL 8.45 H Absolute Lymphocytes (1.2-3.4) 10^3/uL 0.23 L Absolute Monocytes (0.1-0.8) 10^3/uL 0.18 Absolute Eosinophils (0.0-0.7) 10^3/uL 0.03 Absolute Basophils (0.0-0.2) 10^3/uL 0.02 RBC Morphology See Below Anisocytosis 2+ Sodium (136-145) mmol/L 140 Potassium (3.5-5.1) mmol/L 4.2 Chloride (98-107) mmol/L 107 Carbon Dioxide (21.0-32.0) mmol/L 24.5 Anion Gap (3-11) mmol/L 8.5 BUN (7-18) mg/dL 38 H Creatinine (0.55-1.02) mg/dL 1.0 Est GFR (CKD-EPI 2020) (mL/min/1.73m2) 59.49 Glucose (74-106) mg/dL 106 Calcium (8.5-10.1) mg/dL 8.3 L Magnesium (1.8-2.4) mg/dL 2.4 Total Bilirubin (0.2-1.0) mg/dL 6.2 H AST (15-37) U/L 311 H ALT (14-59) U/L 128 H Alkaline Phosphatase (46-116) U/L 465 H Troponin I (<or=60) ng/L < 50 Total Protein (6.4-8.2) g/dL 6.0 L Albumin (3.4-5.0) g/dL 2.1 L Urine Color (Yellow) Yellow Urine Clarity (Clear) Clear Urine pH (5-8) 5.5 Ur Specific [place] (1.005-1.025) <= 1.005 Urine Protein (Negative) mg/dL Trace H Urine Ketones (Negative) mg/dL 15 H Urine Blood (Negative) Trace-intact H Urine Nitrite (Negative) Negative Urine Bilirubin (Negative) Small H Urine Urobilinogen (Up TO 0.2) EU/dL 2.0 H Ur Leukocyte Esterase (Negative) Negative Urine RBC (0-2) HPF 0-2 Urine WBC (0-5) HPF 0-2 Ur Epithelial Cells (Negative) HPF Few Urine Crystals (Negative) HPF Negative Urine Bacteria (Negative) HPF Negative Urine Casts (Negative) LPF Negative Urine Mucus (Negative) Trace Ur Culture Indicated? No Urine Glucose (Negative) mg/dL Negative ECG Data Attestation: I personally reviewed and interpreted this ECG (s) as follows: Interpretation: rate of 94, sinus, no stemi. HPI General Mode of arrival: wheelchair. Date/Time Provider Initiated Documentation: 11/25/22 11:22. Limitations to Documentation: no limitations. Information obtained by: patient. HPI Narrative: Patient is a 72-year-old female with a history of metastatic breast cancer to liver and bone, DVT of the left arm on apixaban with chronic shoulder and back pain presents for shortness of breath and increasing pain in her mid back for the past week, and generalized weakness and decreased appetite over the past 2 days. Her last chemotherapy treatment was 2 days ago. Patient states she has had chronic back pain but states it has been worse over the past week. She states she took tramadol earlier today with some relief. She does also admit to occasional lower abdominal pain. She also admits to occasional right leg pain. She states she last ate this morning but has not been drinking much water. She denies any known fever, sore throat, chest pain, vomiting, diarrhea or urinary symptoms. Related Data Home Medications Medication Instructions Recorded Confirmed bimatoprost 0.01 % eye drops 1 drp ophthalmic (eye) QPM 02/09/19 11/25/22 (Lumigan) multivitamin 1 cap PO DAILY 05/10/19 11/25/22 potassium chloride 10 mEq 10 meq PO DAILY 04/08/21 11/25/22 tablet,extended release(part/cryst) breast prosthesis and bras 1 unit EXT DAILY #1 unit 06/01/21 11/25/22 vitamin B complex 1 tab PO DAILY 06/01/21 11/25/22 irbesartan 150 1 tab PO .daily in AM HTN #90 tabs 06/11/22 11/25/22 mg-hydrochlorothiazide 12.5 mg tablet Foot Care and Nail Trim #1 ea 07/26/22 11/25/22 methocarbamol 500 mg tablet 500 - 1,000 mg PO TID PRN muscle 07/30/22 11/25/22 spasm #40 tabs apixaban 5 mg (74 tabs) tablets in See Rx Instructions PO .COMPLEX 10/11/22 11/25/22 a dose pack #74 dose pk naloxone 4 mg/actuation nasal spray 1 spray intranasal Q2-3M PRN #2 ea 10/11/22 11/25/22 tramadol 50 mg tablet See Rx Instructions .Route 10/11/22 11/25/22 .COMPLEX PRN #40 tabs ondansetron HCl 4 mg tablet 4 mg PO Q8H PRN nausea and 10/29/22 11/25/22 vomiting #30 tabs dexamethasone 4 mg tablet 4 mg PO BID 11/18/22 11/25/22 lorazepam 0.5 mg tablet 0.5 mg PO Q6H PRN 11/18/22 11/25/22 prochlorperazine maleate 10 mg 10 mg PO Q6H PRN 11/18/22 11/25/22 tablet (Compazine) gabapentin 100 mg capsule 100 mg PO BID 11/25/22 11/25/22 ibuprofen 600 mg tablet 600 mg PO BID 11/25/22 Previous Rx's Medication Instructions Recorded breast prosthesis and bras 1 unit EXT DAILY #1 unit 06/01/21 irbesartan 150 1 tab PO .daily in AM HTN #90 tabs 06/11/22 mg-hydrochlorothiazide 12.5 mg tablet Foot Care and Nail Trim #1 ea 07/26/22 methocarbamol 500 mg tablet 500 - 1,000 mg PO TID PRN muscle 07/30/22 spasm #40 tabs apixaban 5 mg (74 tabs) tablets in See Rx Instructions PO .COMPLEX 10/11/22 a dose pack #74 dose pk naloxone 4 mg/actuation nasal spray 1 spray intranasal Q2-3M PRN #2 ea 10/11/22 tramadol 50 mg tablet See Rx Instructions .Route 10/11/22 .COMPLEX PRN #40 tabs ondansetron HCl 4 mg tablet 4 mg PO Q8H PRN nausea and 10/29/22 vomiting #30 tabs Allergies Allergy/AdvReac Type Severity Reaction Status Date / Time paclitaxel Allergy Unknown Unverified 11/25/22 12:21 General Stated Complaint: GenMedical YANETH: 3 Review of Systems All systems reviewed & are unremarkable except as noted in HPI and below Constitutional Constitutional: Reports as per HPI, Denies chills, Reports fatigue, Denies fever(s), Reports poor appetite and Reports weakness Eyes Eyes: Denies blurry vision ENT Ears, Nose, Mouth, and Throat: Denies dizziness, Denies sore throat and Denies throat swelling Cardiovascular Cardiovascular: Denies chest pain and Reports dyspnea Respiratory Respiratory: Denies cough and Reports dyspnea Gastrointestinal Gastrointestinal: Denies abdominal pain, Denies diarrhea and Denies vomiting Genitourinary Genitourinary: Denies hematuria and Denies dysuria Musculoskeletal Musculoskeletal: Reports back pain and Denies numbness Integumentary/Breasts Skin/Breast: Denies lesions and Denies rash Neurologic Neurologic: Denies dizziness, Denies localized weakness, Denies numbness and Reports weakness Endocrine Endocrine: Reports fatigue Allergic/Immunologic Allergic/Immunologic: Denies throat swelling PFSH All Active Problems (Updated 11/28/22 @ 16:08 by Gee Cesar MD) Anemia (Chronic) Goals of care, counseling/discussion (Acute) Palliative care patient (Acute) Hypoxia (Acute) Discharge planning issues (Acute) Ascites (Acute) Generalized weakness (Acute) Liver metastases (Acute) Metastatic breast cancer (Acute) Bone metastases (Acute) Bilateral pleural effusion (Acute) Hyperbilirubinemia (Acute) Liver metastases (Acute ~09/2022) [facility] [place]. Osseous metastasis (Acute ~09/2022) Metastatic breast cancer (Acute ~09/2022) Subclinical hypothyroidism (Chronic 09/25/13) 2010 elevated TSH, normal FT4 2012 normalized Hyperlipidemia (Chronic 09/14/12) Total 224; LDL 137 Family history of coronary artery disease (Chronic 10/07/14) Son with ID and stents x3 at 37yo Essential hypertension (Chronic 02/13/16) Dx'ed 2015 HCTZ HCTZ-Irbesartan 05/2021 Glaucoma (Chronic) Yasemin Osteoarthritis of right knee (Chronic) x-ray 2018 Ortho referral 04/2020 Peripheral polyneuropathy (Chronic) Per [facility]/21 longterm current use of aromatase inhibitor (Chronic) [facility] [place]21 note Lumbar radiculopathy (Acute ~2021) R ant thigh following L2; degenerative disease on bone scan 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 (Acute) Deep vein thrombosis (DVT) of left upper extremity (Acute ~09/2022) Medical History Abnormal bone scan of lumbar spine (~11/2019) L2; F/U study 2021 shows degenerative changes without concern for metastatic disease Abnormal radionuclide bone scan (~06/2022) L rib Chemotherapy-induced neuropathy Hands Encounter for central line placement (~05/15/19) PORT (chemo) Invasive ductal carcinoma of breast (~04/04/19) s/p R breast mastectomy [facility] [place]--05/2019 chemo, rad tx 11/20/2019 [facility] Onc _Dr Valdes 12/18/19 F/U w Dr Rae [place] S/P xrt completion [facility] [place]/10/21 Breast 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, 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 heart related. (didn't wake up one morning) Heart disease Alcohol abuse Coronary artery disease Brother Alcohol abuse Coronary artery disease Maternal Grandfather Alcohol abuse Coronary artery disease Son Alcohol abuse Coronary artery disease Myocardial infarction Sister Hypertension Paternal Grandmother Stroke Paternal Grandfather Stroke Other Family history of coronary artery disease Social History Smoking/Tobacco Use Status: Never Smoking risk assessment performed?: Yes Alcohol Intake: current Alcohol Intake frequency: holidays/special occasions only Drug use: Never Substance use type: does not use Adopted: No Caregiver/Support person: No Foster care: No Household members: spouse and family Housing: house Number of Children: 3 number of grandchildren: 9 Communication Needs: None Education Level: master's degree Do you need help understanding health information?: Rarely 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, [facility]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 Pets and animals: Yes (2 cats and dog) Sexually active: No Do you think of yourself as: straight/heterosexual Current gender identity: female What is your relationship status?: How often do you talk on the phone with friends or family?: three or more times per week How often do you get together with friends or relatives?: three or more times per week How often do you attend mandaeism or druze services?: 4 or more times per year Do you belong to any clubs or organized social groups?: yes Panel score (0-1 are the most socially isolated patients): 4 What type of physical activity do you participate in: walking Duration: 15-30 minutes/day Frequency: 1-2 times per week Nemo/Spiritism: Christianity Special nemo needs: No Seatbelt use: always Helmet use: No Drive intox or ride w/intox catering truck driver: No Do you feel safe at home: Yes Do you feel safe in your relationship?: Yes Exam Const General: cooperative Nutritional Appearance: obese centrally obese Orientation: alert, awake and oriented x3 HENMT Head: normal to inspection Face and sinus: normal facial exam Mouth: mucous membranes dry Eyes General: appearance normal, both eyes and all related structures Pupils: PERRL EOM: EOM intact bilaterally Neck Neck: normal visual inspection and No submandibular swelling Lymphatic: no lymphadenopathy noted Chest Chest: normal inspection of the chest and no tenderness Resp Effort & Inspection: normal respiratory effort and able to speak in complete sentences Auscultation: clear to auscultation bilaterally Cardio Rate: tachycardic Rhythm: regular rhythm GI Inspection: normal to inspection Palpation: soft, not firm, not rigid and nontender Auscultation: normal bowel sounds Back/Spine/Pelvis Thoracic/Lumbar Spine: thoracic and lumbar spine normal to inspection, No thoracic spinal tenderness and No lumbar spinal tenderness Skin General skin exam: no rashes or lesions noted Neuro General: patient alert, patient awake and patient oriented x3 Cognition: normal cognition Speech: speech normal Motor: muscle tone normal throughout Sensory Exam: no sensory deficits noted Extrem General: normal to inspection, full ROM, capillary refill normal, no calf tenderness bilaterally and no edema Psych Appearance: grossly normal Mental Status: mental status grossly normal Speech and Movement: speech and movement normal Affect: normal affect Course Vital Signs Vital signs: Vital Signs Temperature 97.7 F 11/25/22 11:14 Pulse 113 H 11/25/22 11:14 Respiratory Rate 18 11/25/22 11:14 Blood Pressure 152/75 H 11/25/22 11:14 Pulse Oximetry 92 11/25/22 11:14 Temperature 97.7 F 11/25/22 11:14 Temperature Source Temporal Artery Scan 11/25/22 11:14 Pulse 113 H 11/25/22 11:14 Respiratory Rate 18 11/25/22 11:14 Respiratory Effort 11/25/22 11:16 Blood Pressure 152/75 H 11/25/22 11:14 Blood Pressure Position Supine 11/25/22 11:14 Pulse Oximetry 92 11/25/22 11:14 Oxygen Delivery Method Room Air 11/25/22 11:14 Oxygen Flow Rate 0 11/25/22 11:14 Pain Level 6 11/25/22 11:14
--- NOTE | 2022-11-25 12:00 | DI.CT_ITS ---
Exam(s) CT CHEST PE ABD PELVIS W EXAM: CT Chest PE ABD PELVIS W CLINICAL HISTORY: . mid back pain, sob, r/o PE, worsening mets TECHNIQUE: Imaging Protocol: Axial CT angiography was performed with multi-slice acquisition and mu lti-planar and/or 3D reconstructions. CONTRAST MATERIAL: Intravenous: Omnipaque 350contrast volume:100 mL COMPARISON: CT CT CHEST PE ABD PELVIS W from 10/06/2022 CR XR PORTABLE CHEST AP POST LINE from 10/18/2022 FINDINGS: CHEST: Tracheobronchial tree: Patent where visualized. Pulmonary parenchyma: There is poor inspiration. There are bilateral pleural effusions. There is a large left and moderate right pleural effusion. There is consolidation seen in both the right and le ft lobes. There are areas of air trapping in the lungs. No architectural distortion. Pulmonary Arteries: No evidence of filling defect to suggest pulmonary emboli. Mediastinum and Malina: No dominant adenopathy or fluid collection. The esophagus is unremarkable. Visualized thyroid gland: Unremarkable. Pleura: There is no pneumothorax. Heart: The heart is not dilated. Coronary artery calcifications are present. No pericardial effusion. Aorta: Thoracic aorta non-dilated. No evidence of dissection. Atherosclerosis is present. Bones: There is again seen osseous sclerotic metastatic disease. Soft tissues: The fluid collection in the soft tissues in the right anterior chest wall is unchanged. Tubes, Catheters, and Lines: There is a right sided central venous catheter in place. ABDOMEN: Liver: There is diffuse hepatic metastatic disease again noted. Portal, Superior Mesenteric, and Splenic Veins: Unremarkable. Gallbladder and Biliary Tract: No radiodense calculus or dilation. Pancreas: Normal density, no abnormal calcifications or inflammatory process. Spleen: Normal. Adrenals: No masses seen. Kidneys: Normal size, contour and axis. No radiodense stones or obstructive uropathy. No masses seen. Abdominal Aorta: Abdominal portion non-dilated. Atherosclerosis is present. Bowel: No obstruction or bowel wall thickening. Appendix is unremarkable. There is diverticulosis of the colon but no evidence of acute diverticulitis. Peritoneal Cavity: Interval development of moderate amount of abdominal pelvic ascites. No free air. Lymph Nodes: Within normal limits. Bones: There is osseous metastatic disease present. There is again seen an L2 compression fracture. Soft Tissues: There is a small fat containing umbilical hernia. PELVIS: Bladder: Symmetric distention, no gross wall thickening. Reproductive Organs: A calcified uterine fibroid is present. Lymph Nodes: Within normal limits. Bones: Within normal limits. IMPRESSION: 1. No evidence of a pulmonary embolism or thoracic aortic dissection. 2. Interval development of bilateral pleural effusions and basilar infiltrates which may represent at electasis or pneumonia. 3. Interval development of moderate abdominal pelvic ascites. 4. Osseous and hepatic metastatic disease. 5. No acute pulmonary process. 6. No acute abdominal or pelvic process. 7. Findings were discussed with Dr. Hansen at 2:40 p.m. on 11/25/2022. RADIATION DOSE DELIVERED: 1,994.53mGy.cm Total DLP DATA REPOSITORY: All CT scans at this facility are submitted to the National Radiology Data Registry (NRDR) Dose Index Registry (DIR) with the [employer] (ACR). RADIATION OPTIMIZATION: All CT scans at this facility use at least one of these dose optimization te chniques: automated exposure control; mA and/or kV adjustment per patient size (includes targeted exa ms where dose is matched to clinical indication); or iterative reconstruction.
--- NOTE | 2022-11-25 12:00 | RT.EKG_ITS ---
APPROVED REPORT Exam: Resting ECG Reason for Exam: sob Patient Location: E HR:94 bpm ECG Measurements Heart Rate [address] 183 P 40 QRSd 80 QRS -23 QT 356 T 41 QTc 446 Conclusion Age and gender not entered, assume 49 yo male for purpose of ECG interpretation Sinus rhythm...normal P axis, V-rate 60- 99 Inferior infarct, old...Q >35mS, II III aVF Consider anterior infarct...Q >30mS in V2-V5. Sinus. No STEMI. I have reviewed and interpreted ECG and agree with software generated interpretation.
[2022-11-25 12:29] LABS: Abs Immature Grans 0.04 10^3/uL (0.0-0.06); Absolute Basophil Count 0.02 10^3/uL (0.0-0.2); Absolute Eosinophil Count 0.03 10^3/uL (0.0-0.7); Absolute Lymphocyte Count 0.23 10^3/uL (1.2-3.4); Absolute Monocyte Count 0.18 10^3/uL (0.1-0.8); Absolute Neutrophil Count 8.45 10^3/uL (1.2-6.7); Basophils % 0.2; Eosinophils % 0.3; HGB 11.7 g/dL (11.2-15.7); Immature Grans % 0.4; Lymphocytes % 2.6; MCH 34.8 pg (27.0-33.0); MCHC 34.4 % (32.0-36.0); MCV 101 fL (80-95); MPV 11.2 fL (8.0-11.0); Neutrophils % 94.5; Platelet Count 144 10^3/uL (130-400); RBC 3.36 10^6/uL (3.93-5.22); RDW 21.5 % (11.7-14.6); RDW-SD 74.1 fL; WBC 8.95 10^3/uL (4.4-10.8)
[2022-11-25 12:48] LABS: ALT 128 U/L (14-59); AST 311 U/L (15-37); Albumin 2.1 g/dL (3.4-5.0); Alkaline Phosphatase 465 U/L (46-116); Anion Gap 8.5 mmol/L (3-11); BUN 38 mg/dL (7-18); Bilirubin, Total 6.2 mg/dL (0.2-1.0); CO2 24.5 mmol/L (21.0-32.0); Calcium 8.3 mg/dL (8.5-10.1); Chloride 107 mmol/L (98-107); Estimated GFR 59.49 (mL/min/1.73m2); Glucose 106 mg/dL (74-106); Magnesium 2.4 mg/dL (1.8-2.4); Potassium 4.2 mmol/L (3.5-5.1); Sodium 140 mmol/L (136-145); Troponin I < 50 ng/L (<or=60)
[2022-11-25] MEDS: Ondansetron 4 MG/2 ML VIAL (13:10)
[2022-11-25] MEDS: HYDROmorphone 2 MG/ML SYR (13:11)
[2022-11-25] MEDS: Normal Saline 500 ML IV ×2 (13:31→15:58)
[2022-11-25 14:46] LABS: Bilirubin Small (Negative); Blood Trace-intact (Negative); Clarity Clear (Clear); Glucose Negative (Negative); Ketones 15 mg/dL (Negative); Leukocyte Esterase Negative (Negative); Nitrite Negative (Negative); Specific Gravity <= 1.005 (1.005-1.025); pH 5.5 (5-8)
[2022-11-25] MEDS: Omnipaque 350 MG/ML 100 ML BTL IJ (14:47)
[2022-11-25] MEDS: Normal Saline - Diluent 50 ML VIAL IJ (14:48)
[2022-11-25 14:53] LABS: Bacteria Negative HPF (Negative); Crystals Negative HPF (Negative); Epithelial Cells Few HPF (Negative); Mucus Trace (Negative); RBC 0-2 HPF (0-2); WBC 0-2 HPF (0-5)
[2022-11-25 14:54] LABS: C & S Indicated? No; Casts Negative LPF (Negative)
[2022-11-25 14:54] LABS: Anisocytosis 2+; Diff Comment RBC Morph Reviewed
[2022-11-25 15:37] LABS: COVID-19 PCR Negative (Negative); Influenza A PCR Negative (Negative); Influenza B PCR Negative (Negative); RSV PCR Negative (Negative)
[2022-11-25 15:54] LABS: Source Nasopharynx
[2022-11-25 16:40] LABS: Lipase 94 U/L (73-393)
[2022-11-25] MEDS: Lactated Ringers 1,000 ML 75 ML IV (17:03)
[2022-11-25] MEDS: Normal Saline Flush 10 ML SYR IVP ×2 (17:04→20:56)
--- NOTE | 2022-11-25 17:32 | HPE_ITS ---
Date of service: 11/25/22 Time of Service: 17:32 Assessment and Plan Assessment and plan (1) Acute dehydration: Status: Acute Assessment and plan: Will cautiously hydrate. I do worry about IVF worsening her B pleural effusions and ascites, so after the initial IVF, I think we should consider switching to albumin. (2) Metastatic breast cancer: Status: Acute Assessment and plan: On palliative chemo/XRT. C/s palliative care. (3) Ascites: Status: Acute Assessment and plan: No evidence of SBP. Likely related to portal hypertension and hypoalbuminemic state. Cautious hydration. Switch to albumin early. Consider paracenthesis. (4) Bilateral pleural effusion: Status: Acute Assessment and plan: As above. Consider thoracenthesis (whether inpatient or outpatient). (5) Generalized weakness: Status: Acute Assessment and plan: PT c/s. (6) Deep vein thrombosis (DVT) of left upper extremity: Status: Acute Assessment and plan: Continue anticoagulation Qualifiers: Affected thrombotic vein of extremity: other upper extremity vein Chronicity: acute Qualified Code(s): I82.622 - Acute embolism and thrombosis of deep veins of left upper extremity (7) Discharge planning issues: Status: Acute Assessment and plan: C/s palliative care and PT. Full code per my conversation with Nery. History of Present Illness History of Present Illness Chief Complaint: Weakness, poor PO intake, increased shortness of breath after chemotherapy Narrative: Ms Rueda is a 72 year old female with PMHx of Stage IV breast cancer with mets to bone and liver, on palliative chemo with weekly gemcitabine and radiation, who received her last gemcitabine treatment (day 15) on 11/23/21, as well as h/o hypertension, hyperlipidemia, DVT LUE on eliquis, who presented to [facility] ED today with weakness, poor PO intake, increased shortness of breath. Some of this started before her last treatment with chemotherapy, but it got worse since. She has had some nausea, but no vomiting. She has not had diarrhea. Actually, she feels constipated. She has had a nonproductive cough x 2 weeks, but this has almost completely resolved now. She denies fevers. Her clinical picture in ER was consistent with dehydration. CTA of the chest ruled out an acute PE but does show bilateral pleural effusions and ascites. She required oxygen in the ED but only after receiving a dose of 0.5 mg of IV dilaudid. She felt better after receiving zofran, fluids, and dilaudid. Family expressed interest in meeting with palliative care. Review of Systems All systems reviewed & are unremarkable except as noted in HPI and below PFSH All Active Problems (Updated 11/25/22 @ 17:44 by Kerri Barbosa MD) Discharge planning issues (Acute) Ascites (Acute) Generalized weakness (Acute) Liver metastases (Acute) Metastatic breast cancer (Acute) Bone metastases (Acute) Acute dehydration (Acute) Bilateral pleural effusion (Acute) Hyperbilirubinemia (Acute) Liver metastases (Acute ~09/2022) [facility] Hem Onc note 11/02/22. Osseous metastasis (Acute ~09/2022) Metastatic breast cancer (Acute ~09/2022) Subclinical hypothyroidism (Chronic 09/25/13) 2010 elevated TSH, normal FT4 2012 normalized Hyperlipidemia (Chronic 09/14/12) Total 224; LDL 137 Family history of coronary artery disease (Chronic 10/07/14) Son with [place] and stents x3 at 37yo Essential hypertension (Chronic 02/13/16) Dx'ed 2015 HCTZ HCTZ-Irbesartan 05/2021 Glaucoma (Chronic) Yasemin Osteoarthritis of right knee (Chronic) x-ray 2019 Ortho referral 04/2020 Peripheral polyneuropathy (Chronic) Per [facility] HEM ONC 09/29/21 skilled nursing current use of aromatase inhibitor (Chronic) [facility] HEM ONC 09/29/21 note Lumbar radiculopathy (Acute ~2021) R ant thigh following L2; degenerative disease on bone scan 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 (Acute) Deep vein thrombosis (DVT) of left upper extremity (Acute ~09/2022) Medical History (Updated 11/25/22 @ 17:44 by Kerri Barbosa MD) Abnormal bone scan of lumbar spine (~11/2019) L2; F/U study 2021 shows degenerative changes without concern for metastatic disease Abnormal radionuclide bone scan (~06/2022) L rib Chemotherapy-induced neuropathy Hands Encounter for central line placement (~05/15/19) PORT (chemo) Invasive ductal carcinoma of breast (~04/04/19) s/p R breast mastectomy [facility] Onc--05/2019 chemo, rad tx 11/20/2019 [facility] Rad Onc _Dr Valdes 2/4/20 F/U w Dr Rae ([facility]) S/P xrt completion [facility] note from 08/10/21 Breast 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, Hormone receptor positive malignant neoplasm of breast Port-A-Cath in place Removed Surgical History History of appendectomy History of colonoscopy (~05/28/19) History of mastectomy , [facility] History of tubal ligation Family History Mother , 47 yo,ovarian cancer Ovarian cancer Father , 82 yo. heart related. (didn't wake up one morning) Heart disease Alcohol abuse Coronary artery disease Brother Alcohol abuse Coronary artery disease Maternal Grandfather Alcohol abuse Coronary artery disease Son Alcohol abuse Coronary artery disease Myocardial infarction Sister Hypertension Paternal Grandmother Stroke Paternal Grandfather Stroke Other Family history of coronary artery disease Social History Smoking/Tobacco Use Status: Never Smoking risk assessment performed?: Yes Alcohol Intake: current Alcohol Intake frequency: holidays/special occasions only Drug use: Never Substance use type: does not use Adopted: No Caregiver/Support person: No Foster care: No Household members: spouse and family Housing: house Number of Children: 3 number of grandchildren: 9 Communication Needs: None Education Level: master's degree Do you need help understanding health information?: Rarely 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, [employer] Pets and animals: Yes (2 cats and dog) Sexually active: No Do you think of yourself as: straight/heterosexual Current gender identity: female What is your relationship status?: How often do you talk on the phone with friends or family?: three or more times per week How often do you get together with friends or relatives?: three or more times per week How often do you attend confucianist or pentecostalism services?: 4 or more times per year Do you belong to any clubs or organized social groups?: yes Panel score (0-1 are the most socially isolated patients): 4 What type of physical activity do you participate in: walking Duration: 15-30 minutes/day Frequency: 1-2 times per week Nemo/Restoration: [employer] Special nemo needs: No Seatbelt use: always Helmet use: No Drive intox or ride w/intox nascar driver: No Do you feel safe at home: Yes Do you feel safe in your relationship?: Yes Meds Allergies and Home Medications Allergies Allergy/AdvReac Type Severity Reaction Status Date / Time paclitaxel Allergy Unknown Unverified 11/25/22 12:21 Home Medications Medication Instructions Recorded Confirmed Type bimatoprost 0.01 % eye drops 1 drp ophthalmic (eye) QPM 02/09/19 11/25/22 History (Lumigan) multivitamin 1 cap PO DAILY 05/10/19 11/25/22 History potassium chloride 10 mEq 10 meq PO DAILY 04/08/21 11/25/22 History tablet,extended release(part/cryst) breast prosthesis and bras 1 unit EXT DAILY #1 unit 06/01/21 11/25/22 Rx vitamin B complex 1 tab PO DAILY 06/01/21 11/25/22 History irbesartan 150 1 tab PO .daily in AM HTN #90 tabs 06/11/22 11/25/22 Rx mg-hydrochlorothiazide 12.5 mg tablet Foot Care and Nail Trim #1 ea 07/26/22 11/25/22 Rx methocarbamol 500 mg tablet 500 - 1,000 mg PO TID PRN muscle 07/30/22 11/25/22 Rx spasm #40 tabs apixaban 5 mg (74 tabs) tablets in See Rx Instructions PO .COMPLEX 10/11/22 11/25/22 Rx a dose pack #74 dose pk naloxone 4 mg/actuation nasal spray 1 spray intranasal Q2-3M PRN #2 ea 10/11/22 11/25/22 Rx tramadol 50 mg tablet See Rx Instructions .Route 10/11/22 11/25/22 Rx .COMPLEX PRN #40 tabs ondansetron HCl 4 mg tablet 4 mg PO Q8H PRN nausea and 10/29/22 11/25/22 Rx vomiting #30 tabs dexamethasone 4 mg tablet 4 mg PO BID 11/18/22 11/25/22 History lorazepam 0.5 mg tablet 0.5 mg PO Q6H PRN 11/18/22 11/25/22 History prochlorperazine maleate 10 mg 10 mg PO Q6H PRN 11/18/22 11/25/22 History tablet (Compazine) gabapentin 100 mg capsule 100 mg PO BID 11/25/22 11/25/22 History ibuprofen 600 mg tablet 600 mg PO BID 11/25/22 11/25/22 History Exam Narrative Exam Narrative: General: Pleasant female who looks weak and tired, A&Ox3 Neurological: A&Ox3, no focal deficits Psychiatric: Appropriate speech pattern/content Skin: mild erythema around infusaport R chest; otherwise clean/dry/intact; no rashes/bruises HEENT: Atraumatic, normocephalic, EOMI, dry MM, clear oropharynx, no subma ndibular or cervical lymphadenopathy, no goiter or JVD Cardiovascular: RRR, no m/r/g Lungs: CTAB Gastrointestinal: soft, nontender, distended with mild ascites Genitourinary: deferred Extremities: trace edema BLEs, trace pedal pulses B, no c/c, no lesions on B feet. Results Imaging Additional studies: CT chest/abdomen/pelvis: 1. No evidence of a pulmonary embolism or thoracic aortic dissection. 2. Interval development of bilateral pleural effusions and basilar infiltrates which may represent atelectasis or pneumonia. 3. Interval development of moderate abdominal pelvic ascites. 4. Osseous and hepatic metastatic disease. 5. No acute pulmonary process. 6. No acute abdominal or pelvic process. EKG: ST, HR 94, no acute ischemia Labs Result diagrams: 11/25/22 12:18 11/25/22 12:18 Labs: Laboratory Results - last 24 hr 11/25/22 11/25/22 11/25/22 11:22 11:22 11:22 WBC Cancelled RBC Cancelled Hgb Cancelled Hct Cancelled MCV Cancelled MCH Cancelled MCHC Cancelled RDW Cancelled Plt Count Cancelled MPV Cancelled Immature Gran % Cancelled Neutrophils % Cancelled Band Neutrophils % Cancelled Lymphocytes % Cancelled Atypical Lymphs % Cancelled Monocytes % Cancelled Eosinophils % Cancelled Basophils % Cancelled Metamyelocytes % Cancelled Myelocytes % Cancelled Promyelocytes % Cancelled Other Cells % Cancelled Nucleated RBC % Cancelled Absolute Neutrophils Cancelled Absolute Lymphocytes Cancelled Absolute Monocytes Cancelled Absolute Eosinophils Cancelled Absolute Basophils Cancelled RBC Morphology Cancelled Polychromasia Cancelled Hypochromasia Cancelled Poikilocytosis Cancelled Basophilic Stippling Cancelled Anisocytosis Cancelled Microcytosis Cancelled Macrocytosis Cancelled Spherocytes Cancelled Tear Drop Cells Cancelled Ovalocytes Cancelled Stomatocytes Cancelled [place] Rim Bodies Cancelled Daniel Cells/Echinocytes Cancelled Acanthocytes (Spur) Cancelled Schistocytes Cancelled Sodium Cancelled Potassium Cancelled Chloride Cancelled Carbon Dioxide Cancelled Anion Gap Cancelled BUN Cancelled Creatinine Cancelled Est GFR (CKD-EPI 2020) Cancelled Glucose Cancelled Calcium Cancelled Magnesium Cancelled Total Bilirubin Cancelled AST Cancelled ALT Cancelled Alkaline Phosphatase Cancelled Troponin I Cancelled Total Protein Cancelled Albumin Cancelled Lipase Urine Color Urine Clarity Urine pH Ur Specific [place] Urine Protein Urine Ketones Urine Blood Urine Nitrite Urine Bilirubin Urine Urobilinogen Ur Leukocyte Esterase Urine RBC Urine WBC Ur Epithelial Cells Urine Crystals Urine Bacteria Urine Casts Urine Mucus Ur Culture Indicated? Urine Glucose COVID-19 Source Cancelled SARS-CoV-2 (PCR) Cancelled Influenza Type A (PCR) Cancelled Influenza Type B (PCR) Cancelled RSV (PCR) Cancelled 11/25/22 11/25/22 11/25/22 12:18 12:18 12:18 WBC 8.95 RBC 3.36 L Hgb 11.7 Hct 34.0 L MCV 101 H MCH 34.8 H MCHC 34.4 RDW 21.5 H Plt Count 144 MPV 11.2 H Immature Gran % 0.4 Neutrophils % 94.5 Band Neutrophils % Lymphocytes % 2.6 Atypical Lymphs % Monocytes % 2.0 Eosinophils % 0.3 Basophils % 0.2 Metamyelocytes % Myelocytes % Promyelocytes % Other Cells % Nucleated RBC % 0.0 Absolute Neutrophils 8.45 H Absolute Lymphocytes 0.23 L Absolute Monocytes 0.18 Absolute Eosinophils 0.03 Absolute Basophils 0.02 RBC Morphology See Below Polychromasia Hypochromasia Poikilocytosis Basophilic Stippling Anisocytosis 2+ Microcytosis Macrocytosis Spherocytes Tear Drop Cells Ovalocytes Stomatocytes [place] Rim Bodies Daniel Cells/Echinocytes Acanthocytes (Spur) Schistocytes Sodium 140 Potassium 4.2 Chloride 107 Carbon Dioxide 24.5 Anion Gap 8.5 BUN 38 H Creatinine 1.0 Est GFR (CKD-EPI 2020) 59.49 Glucose 106 Calcium 8.3 L Magnesium 2.4 Total Bilirubin 6.2 H AST 311 H ALT 128 H Alkaline Phosphatase 465 H Troponin I < 50 Total Protein 6.0 L Albumin 2.1 L Lipase 94 Urine Color Urine Clarity Urine pH Ur Specific [place] Urine Protein Urine Ketones Urine Blood Urine Nitrite Urine Bilirubin Urine Urobilinogen Ur Leukocyte Esterase Urine RBC Urine WBC Ur Epithelial Cells Urine Crystals Urine Bacteria Urine Casts Urine Mucus Ur Culture Indicated? Urine Glucose COVID-19 Source SARS-CoV-2 (PCR) Influenza Type A (PCR) Influenza Type B (PCR) RSV (PCR) 11/25/22 11/25/22 12:28 14:40 WBC RBC Hgb Hct MCV MCH MCHC RDW Plt Count MPV Immature Gran % Neutrophils % Band Neutrophils % Lymphocytes % Atypical Lymphs % Monocytes % Eosinophils % Basophils % Metamyelocytes % Myelocytes % Promyelocytes % Other Cells % Nucleated RBC % Absolute Neutrophils Absolute Lymphocytes Absolute Monocytes Absolute Eosinophils Absolute Basophils RBC Morphology Polychromasia Hypochromasia Poikilocytosis Basophilic Stippling Anisocytosis Microcytosis Macrocytosis Spherocytes Tear Drop Cells Ovalocytes Stomatocytes [place] Rim Bodies [place] Cells/Echinocytes Acanthocytes (Spur) Schistocytes Sodium Potassium Chloride Carbon Dioxide Anion Gap BUN Creatinine Est GFR (CKD-EPI 2020) Glucose Calcium Magnesium Total Bilirubin AST ALT Alkaline Phosphatase Troponin I Total Protein Albumin Lipase Urine Color Yellow Urine Clarity Clear Urine pH 5.5 Ur Specific [place] <= 1.005 Urine Protein Trace H Urine Ketones 15 H Urine Blood Trace-intact H Urine Nitrite Negative Urine Bilirubin Small H Urine Urobilinogen 2.0 H Ur Leukocyte Esterase Negative Urine RBC 0-2 Urine WBC 0-2 Ur Epithelial Cells Few Urine Crystals Negative Urine Bacteria Negative Urine Casts Negative Urine Mucus Trace Ur Culture Indicated? No Urine Glucose Negative COVID-19 Source Nasopharynx SARS-CoV-2 (PCR) Negative Influenza Type A (PCR) Negative Influenza Type B (PCR) Negative RSV (PCR) Negative Last Vital Signs Temp 36.5 C 11/25/22 11:14 Pulse 80 11/25/22 16:29 Resp 20 11/25/22 16:29 BP 112/58 L 11/25/22 16:29 Pulse Ox 96 11/25/22 16:29 Time Spent Time spent with Patient: 40-54 minutes Time was spent: preparing to see the patient(eg.review tests), obtaining and/or reviewing separately otained hiistory, ordering medications,tests, procedures, referring, communicating with other health home child care provider, indepentently interpreting results, counseling the patient and care coordination
--- NOTE | 2022-11-25 18:34 | HPE_ITS ---
Date of service: 11/25/22 Time of Service: 18:34 Assessment and Plan Assessment and plan (1) Ascites: Assessment and plan: This patient is presenting with increased fatigue, weakness and inability to complete her ADLs after chemotherapy. Anemia might be a sign of malignancy but I tis a common cause of limitation in daily activities in patients getting chemotherapy . At 11.7 and 34.0 of hemoglobin and hematocrit (H&H), the patient is presenting extensive symptoms for numbers slightly below the threshold of normal H&H . The patient might have an infectious process but ?normal WBC, urine analysis and the CT could not confirm any acute process at this time . Immunocompromised patients might not be able to build a full inflammatory respon se to infection initially, thus we will keep trending those values . My preceptor mentioned that the patient might lack volume to show an infectious pulmonary process due to ?the CT mentioning atelectasis versus pneumonia. The patient reports poor fluid and food? intake, decreased voids as well as d izziness and progressive weakness. Skin turgor is poor and oral mucous membranes are dry. Those signs and symptoms could be indicative of dehydration . BUN is elevated and the creatinine is barely normal. Dehydration is one of the cause of fatigue in patients with advanced cancer. IV or subcutaneous hydration is the recommended treatment. Admit to the medical floor LR at 75cc/hr VS q 4hrs BRP with assistance Diet as tolerated Continue home meds Hold , irbesartan 150 mg-hydrochlorothiazide 12.5 mg Hydromorphone 0.5 mg IVP for breakthrough pain not relieved by home pain meds. Dronabinol 2.5 mg before lunch and dinner Palliative care consult CBC and BMP in AM (2) Deep vein thrombosis (DVT) prophylaxis declined: Assessment and plan: DVT prophylaxis: Patient is on Eliquis (3) Discharge planning issues: Status: Deleted Assessment and plan: Discharge home when medically stable Discussed with Dr. Barbosa. History of Present Illness History of Present Illness Chief Complaint: Increased weakness, sleepiness, unable to ambulate to get her labs drawn Narrative: This 72 years old female with a history of right breast CA with bone and liver metastases, HTN, hypothyroidism, eft upper extremity DVT, presented to the ED with c/o increased weakness starting post-chemotherapy on Tuesday, sleepiness and the inability to go get her labs drawn. she reported SOB, dizziness at times, lower abdominal tenderness. She denies fevers, no chills, no NVD, no hematochezia, no change in vision, no sore throat, no vertigo.She report dry mouth, decreased sens of thirst and poor appetite. She reports bilateral lower extremity swelling starting 2 days ago.She feels that her pain was well controlled with Tramodol and NSAIDs and report that her provider told her not to take the ibuprofen anymore.She is also on Eliquis 5 mg oral daily for left upper extremity DVT. Review of Systems Constitutional Comments: Patient in bed in no acute distress at the time of the encounter Eyes Comments: Denies change in vision ENT Ears, Nose, Mouth, and Throat: Denies change in voice, Reports dry mouth, Denies mouth lesions, Denies nasal congestion, Denies tinnitus, Denies sore throat and Denies tongue swelling Cardiovascular Cardiovascular: Denies chest pain, Reports leg edema (right > left) and Reports dyspnea on exertion Respiratory Respiratory: Denies cough, Denies pain on inspiration and Reports dyspnea on exertion Gastrointestinal Gastrointestinal: Reports abdominal pain (post meal : increased lower abdominal tenderness), Denies melena and Denies hematochezia Allergic/Immunologic Allergic/Immunologic: Denies tongue swelling PFSH All Active Problems Pathologic fracture of lumbar vertebra (Acute) Cancer related pain (Acute) Malignant pleural effusion (Acute) Goals of care, counseling/discussion (Acute) Palliative care patient (Acute) Generalized weakness (Acute) Liver metastases (Acute ~09/2022) [facility] Hem Onc note 11/02/22. 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 (Acute) Deep vein thrombosis (DVT) of left upper extremity (Acute ~09/2022) Medical History Abnormal bone scan of lumbar spine (~11/2019) L2; F/U study 2021 shows degenerative changes without concern for metastatic disease Abnormal radionuclide bone scan (~06/2022) L rib Ascites Bilateral pleural effusion Chemotherapy-induced neuropathy Hands Deep vein thrombosis (DVT) prophylaxis declined Encounter for central line placement (~05/15/19) PORT (chemo) Glaucoma Yasemin Hyperbilirubinemia Invasive ductal carcinoma of breast (~04/04/19) s/p R breast mastectomy [facility] Onc--05/2019 chemo, rad tx 11/20/2019 [facility] Onc _Dr Valdes 12/18/19 F/U w Dr Rae ([facility]) S/P xrt completion [facility] note from 08/10/21 Breast 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, 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 heart related. (didn't wake up one morning) Heart disease Alcohol abuse Coronary artery disease Brother Alcohol abuse Coronary artery disease Maternal Grandfather Alcohol abuse Coronary artery disease Son Alcohol abuse Coronary artery disease Myocardial infarction Sister Hypertension Paternal Grandmother Stroke Paternal Grandfather Stroke Other Family history of coronary artery disease Social History Smoking/Tobacco Use Status: Never Smoking risk assessment performed?: Yes Alcohol Intake: current Alcohol Intake frequency: holidays/special occasions only Drug use: Never Substance use type: does not use Adopted: No Caregiver/Support person: No Foster care: No Household members: spouse and family Housing: house Number of Children: 3 number of grandchildren: 9 Communication Needs: None Education Level: master's degree Do you need help understanding health information?: Rarely 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, [employer]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[employer] Pets and animals: Yes (2 cats and dog) Sexually active: No Do you think of yourself as: straight/heterosexual Current gender identity: female What is your relationship status?: How often do you talk on the phone with friends or family?: three or more times per week How often do you get together with friends or relatives?: three or more times per week How often do you attend episcopal or pentecostalism services?: 4 or more times per year Do you belong to any clubs or organized social groups?: yes Panel score (0-1 are the most socially isolated patients): 4 What type of physical activity do you participate in: walking Duration: 15-30 minutes/day Frequency: 1-2 times per week Nemo/Latter-Day: Congregational Special nemo needs: No Seatbelt use: always Helmet use: No Drive intox or ride w/intox local delivery driver: No Do you feel safe at home: Yes Do you feel safe in your relationship?: Yes Meds Allergies and Home Medications Allergies Allergy/AdvReac Type Severity Reaction Status Date / Time paclitaxel Allergy Unknown Unverified 12/13/22 15:57 Home Medications Medication Instructions Recorded Confirmed Type bimatoprost 0.01 % eye drops 1 drp ophthalmic (eye) QPM 02/09/19 12/17/22 History (Lumigan) multivitamin 1 cap PO DAILY 05/10/19 12/17/22 History breast prosthesis and bras 1 unit EXT DAILY #1 unit 06/01/21 12/17/22 Rx vitamin B complex 1 tab PO DAILY 06/01/21 12/17/22 History Foot Care and Nail Trim #1 ea 07/26/22 12/17/22 Rx tramadol 50 mg tablet See Rx Instructions .Route 10/11/22 12/17/22 Rx .COMPLEX PRN #40 tabs ondansetron HCl 4 mg tablet 4 mg PO Q8H PRN nausea and 10/29/22 12/17/22 Rx vomiting #30 tabs dexamethasone 4 mg tablet 4 mg PO BID 11/18/22 12/17/22 History lorazepam 0.5 mg tablet 0.5 mg PO Q6H PRN 11/18/22 12/17/22 History prochlorperazine maleate 10 mg 10 mg PO Q6H PRN 11/18/22 12/17/22 History tablet (Compazine) gabapentin 100 mg capsule 100 mg PO BID 11/25/22 12/17/22 History naloxone 8 mg/actuation nasal spray 8 mg (0.1 mL) intranasal Q2M PRN 12/02/22 12/17/22 Rx #2 ea fentanyl 12 mcg/hr transdermal 1 patch transdermal Q72H #5 ea 12/13/22 12/17/22 Rx patch furosemide 20 mg tablet 20 mg PO DAILY PRN #30 tabs 12/13/22 12/17/22 Rx potassium chloride 10 mEq 10 meq PO DAILY #30 caps 12/13/22 12/17/22 Rx capsule,extended release lorazepam 1 mg tablet 1 mg PO QID PRN PRN anxiety #10 12/16/22 12/17/22 Rx tabs morphine concentrate 100 mg/5 mL See Rx Instructions PO Q1H PRN 12/16/22 12/17/22 Rx (20 mg/mL) oral solution pain or dyspnea #30 mL Exam Narrative Exam Narrative: Patient is lying in bed during the interview.She is cooperative Alert and oriented X 4 without neurological deficit. Head is atraumatic normocephalic. Eyes are well aligned, no nasal obstruction, no adenopathy Chest is symmetrical, right mastectomy noticed Lungs are diminished to the bases but clear otherwise. S1,S2 heard, no? cardiac murmur, trace edema to anterior ,tibial aspect of legs. Skin is pink, dry and intact, with reduced turgor Abdomen is round, tenderness to palpation to lower abdomen without rebound tenderness. No CVA tenderness. ? Patient is congruent Results Labs Result diagrams: 11/30/22 06:30 12/02/22 06:37 Labs: Laboratory Results - last 24 hr 11/25/22 11/25/22 11/25/22 11:22 11:22 11:22 WBC Cancelled RBC Cancelled Hgb Cancelled Hct Cancelled MCV Cancelled MCH Cancelled MCHC Cancelled RDW Cancelled Plt Count Cancelled MPV Cancelled Immature Gran % Cancelled Neutrophils % Cancelled Band Neutrophils % Cancelled Lymphocytes % Cancelled Atypical Lymphs % Cancelled Monocytes % Cancelled Eosinophils % Cancelled Basophils % Cancelled Metamyelocytes % Cancelled Myelocytes % Cancelled Promyelocytes % Cancelled Other Cells % Cancelled Nucleated RBC % Cancelled Absolute Neutrophils Cancelled Absolute Lymphocytes Cancelled Absolute Monocytes Cancelled Absolute Eosinophils Cancelled Absolute Basophils Cancelled RBC Morphology Cancelled Polychromasia Cancelled Hypochromasia Cancelled Poikilocytosis Cancelled Basophilic Stippling Cancelled Anisocytosis Cancelled Microcytosis Cancelled Macrocytosis Cancelled Spherocytes Cancelled Tear Drop Cells Cancelled Ovalocytes Cancelled Stomatocytes Cancelled [place] Bodies Cancelled Daniel Cells/Echinocytes Cancelled Acanthocytes (Spur) Cancelled Schistocytes Cancelled Sodium Cancelled Potassium Cancelled Chloride Cancelled Carbon Dioxide Cancelled Anion Gap Cancelled BUN Cancelled Creatinine Cancelled Est GFR (CKD-EPI 2020) Cancelled Glucose Cancelled Calcium Cancelled Magnesium Cancelled Total Bilirubin Cancelled AST Cancelled ALT Cancelled Alkaline Phosphatase Cancelled Troponin I Cancelled Total Protein Cancelled Albumin Cancelled Lipase Urine Color Urine Clarity Urine pH Ur Specific [place] Urine Protein Urine Ketones Urine Blood Urine Nitrite Urine Bilirubin Urine Urobilinogen Ur Leukocyte Esterase Urine RBC Urine WBC Ur Epithelial Cells Urine Crystals Urine Bacteria Urine Casts Urine Mucus Ur Culture Indicated? Urine Glucose COVID-19 Source Cancelled SARS-CoV-2 (PCR) Cancelled Influenza Type A (PCR) Cancelled Influenza Type B (PCR) Cancelled RSV (PCR) Cancelled 11/25/22 11/25/22 11/25/22 12:18 12:18 12:18 WBC 8.95 RBC 3.36 L Hgb 11.7 Hct 34.0 L MCV 101 H MCH 34.8 H MCHC 34.4 RDW 21.5 H Plt Count 144 MPV 11.2 H Immature Gran % 0.4 Neutrophils % 94.5 Band Neutrophils % Lymphocytes % 2.6 Atypical Lymphs % Monocytes % 2.0 Eosinophils % 0.3 Basophils % 0.2 Metamyelocytes % Myelocytes % Promyelocytes % Other Cells % Nucleated RBC % 0.0 Absolute Neutrophils 8.45 H Absolute Lymphocytes 0.23 L Absolute Monocytes 0.18 Absolute Eosinophils 0.03 Absolute Basophils 0.02 RBC Morphology See Below Polychromasia Hypochromasia Poikilocytosis Basophilic Stippling Anisocytosis 2+ Microcytosis Macrocytosis Spherocytes Tear Drop Cells Ovalocytes Stomatocytes [place] Bodies Mobile Cells/Echinocytes Acanthocytes (Spur) Schistocytes Sodium 140 Potassium 4.2 Chloride 107 Carbon Dioxide 24.5 Anion Gap 8.5 BUN 38 H Creatinine 1.0 Est GFR (CKD-EPI 2020) 59.49 Glucose 106 Calcium 8.3 L Magnesium 2.4 Total Bilirubin 6.2 H AST 311 H ALT 128 H Alkaline Phosphatase 465 H Troponin I < 50 Total Protein 6.0 L Albumin 2.1 L Lipase 94 Urine Color Urine Clarity Urine pH Ur Specific [place] Urine Protein Urine Ketones Urine Blood Urine Nitrite Urine Bilirubin Urine Urobilinogen Ur Leukocyte Esterase Urine RBC Urine WBC Ur Epithelial Cells Urine Crystals Urine Bacteria Urine Casts Urine Mucus Ur Culture Indicated? Urine Glucose COVID-19 Source SARS-CoV-2 (PCR) Influenza Type A (PCR) Influenza Type B (PCR) RSV (PCR) 11/25/22 11/25/22 12:28 14:40 WBC RBC Hgb Hct MCV MCH MCHC RDW Plt Count MPV Immature Gran % Neutrophils % Band Neutrophils % Lymphocytes % Atypical Lymphs % Monocytes % Eosinophils % Basophils % Metamyelocytes % Myelocytes % Promyelocytes % Other Cells % Nucleated RBC % Absolute Neutrophils Absolute Lymphocytes Absolute Monocytes Absolute Eosinophils Absolute Basophils RBC Morphology Polychromasia Hypochromasia Poikilocytosis Basophilic Stippling Anisocytosis Microcytosis Macrocytosis Spherocytes Tear Drop Cells Ovalocytes Stomatocytes [place] Bodies Mobile Cells/Echinocytes Acanthocytes (Spur) Schistocytes Sodium Potassium Chloride Carbon Dioxide Anion Gap BUN Creatinine Est GFR (CKD-EPI 2020) Glucose Calcium Magnesium Total Bilirubin AST ALT Alkaline Phosphatase Troponin I Total Protein Albumin Lipase Urine Color Yellow Urine Clarity Clear Urine pH 5.5 Ur Specific [place] <= 1.005 Urine Protein Trace H Urine Ketones 15 H Urine Blood Trace-intact H Urine Nitrite Negative Urine Bilirubin Small H Urine Urobilinogen 2.0 H Ur Leukocyte Esterase Negative Urine RBC 0-2 Urine WBC 0-2 Ur Epithelial Cells Few Urine Crystals Negative Urine Bacteria Negative Urine Casts Negative Urine Mucus Trace Ur Culture Indicated? No Urine Glucose Negative COVID-19 Source Nasopharynx SARS-CoV-2 (PCR) Negative Influenza Type A (PCR) Negative Influenza Type B (PCR) Negative RSV (PCR) Negative Last Vital Signs Temp 99.1 F 11/25/22 17:10 Pulse 98 H 11/25/22 17:10 Resp 12 11/25/22 17:10 BP 113/74 11/25/22 17:10 Pulse Ox 98 11/25/22 17:10 PAWSS Have you Been Recently Intoxicated or Drunk Within the Last 30 days?: No Have you Ever Experienced Previous Episodes of Alcohol Withdrawal?: No Have you ever Experienced Withdrawal Seizures?: No Have you ever Experienced Delirium Tremens(DT)s?: No Evidence of Increased Autonomic Activity (i.e. HR>120, tremor, sweating, agitation, nausea)?: No Result: 0 Time Spent Time spent with Patient: 55-74 minutes Time was spent: preparing to see the patient(eg.review tests), obtaining and/or reviewing separately otained hiistory, referring, communicating with other health care professional, indepentently interpreting results, counseling the patient and care coordination
[2022-11-25] MEDS: Docusate Sodium 100 MG CAP PO (19:51)
[2022-11-25] MEDS: HYDROmorphone 2 MG/ML SYR 0.5 MG IVP (20:54)
[2022-11-25] MEDS: Gabapentin 100 MG CAP PO (21:22)
[2022-11-26] VITALS (7 sets, daily range): BP systolic 100–132; BP diastolic 63–81; PULSE 80–108; RESP 14–20; TEMP 36.7–37; O2SAT 88–96
[2022-11-26] MEDS: Lactated Ringers 1,000 ML 75 ML IV (06:18)
[2022-11-26] MEDS: Normal Saline Flush 10 ML SYR IVP ×4 (06:33→18:32)
[2022-11-26 07:12] LABS: Abs Immature Grans 0.06 10^3/uL (0.0-0.06); Absolute Basophil Count 0.02 10^3/uL (0.0-0.2); Absolute Eosinophil Count 0.02 10^3/uL (0.0-0.7); Absolute Lymphocyte Count 0.27 10^3/uL (1.2-3.4); Absolute Monocyte Count 0.23 10^3/uL (0.1-0.8); Absolute Neutrophil Count 9.12 10^3/uL (1.2-6.7); Basophils % 0.2; Eosinophils % 0.2; HCT 30.3 % (36.0-46.0); HGB 10.4 g/dL (11.2-15.7); Immature Grans % 0.6; Lymphocytes % 2.8; MCH 35.1 pg (27.0-33.0); MCHC 34.3 % (32.0-36.0); MCV 102 fL (80-95); MPV 11.1 fL (8.0-11.0); Monocytes % 2.4; Neutrophils % 93.8; Platelet Count 129 10^3/uL (130-400); RBC 2.96 10^6/uL (3.93-5.22); RDW 21.5 % (11.7-14.6); WBC 9.72 10^3/uL (4.4-10.8)
[2022-11-26 07:27] LABS: ALT 126 U/L (14-59); AST 294 U/L (15-37); Albumin 1.9 g/dL (3.4-5.0); Alkaline Phosphatase 402 U/L (46-116); BUN 36 mg/dL (7-18); Bilirubin, Direct 4.8 mg/dL (0.0-0.2); Bilirubin, Total 6.1 mg/dL (0.2-1.0); Calcium 7.6 mg/dL (8.5-10.1); Chloride 107 mmol/L (98-107); Estimated GFR 59.49 (mL/min/1.73m2); Glucose 100 mg/dL (74-106); Magnesium 2.3 mg/dL (1.8-2.4); Potassium 4.1 mmol/L (3.5-5.1); Sodium 138 mmol/L (136-145); Total Protein 5.4 g/dL (6.4-8.2)
[2022-11-26 07:36] LABS: Anisocytosis 2+; Diff Comment RBC Morph Reviewed
[2022-11-26] MEDS: Docusate Sodium 100 MG CAP PO ×2 (08:28→19:45)
[2022-11-26] MEDS: Gabapentin 100 MG CAP PO ×2 (08:28→19:45)
[2022-11-26] MEDS: Multivitamin TAB 1 TAB PO (08:28)
[2022-11-26] MEDS: Vitamins B Comp w/C TAB 1 TAB PO (08:28)
[2022-11-26] MEDS: Apixaban 5 MG TAB PO ×2 (08:28→19:45)
[2022-11-26] MEDS: Potassium Chloride 10 MEQ TABCR PO (08:28)
--- NOTE | 2022-11-26 09:17 | PDOC.CMIN ---
- If Service Date Differs Date of service: 11/26/22 Time of Service: 09:18 Care Management Initial Assess REASON FOR HOSPITALIZATION:: Dehydration, Metastatic Breast Cancer PAST MEDICAL HISTORY/PAST SURGICAL HISTORY:: All Active Problems (Updated 11/25/22 @ 17:44 by Kerir Barbosa MD). Discharge planning issues (Acute). Ascites (Acute). Generalized weakness (Acute). Liver metastases (Acute). Metastatic breast cancer (Acute). Bone metastases (Acute). Acute dehydration (Acute). Bilateral pleural effusion (Acute). Hyperbilirubinemia (Acute). Liver metastases (Acute ~09/2022). [facility] Hem Onc note 11/02/22. Osseous metastasis (Acute ~09/2022). Metastatic breast cancer (Acute ~09/2022). Subclinical hypothyroidism (Chronic 09/25/13). 2010 elevated TSH, normal FT4. 2012 normalized. Hyperlipidemia (Chronic 09/14/12). Total 224; LDL 137. Family history of coronary artery disease (Chronic 10/07/14). Son with PR and stents x3 at 37yo. Essential hypertension (Chronic 02/13/16). Dx'ed 2016 HCTZ. HCTZ-Irbesartan 05/2021. Glaucoma (Chronic). Yasemin. Osteoarthritis of right knee (Chronic). x-ray 2018. Ortho referral 04/2020. Peripheral polyneuropathy (Chronic). Per [facility] HEM ONC 09/29/21. [facility] current use of aromatase inhibitor (Chronic). [facility] HEM ONC 09/29/21 note. Lumbar radiculopathy (Acute ~2021). R ant thigh following L2; degenerative disease on bone scan. 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 Deep vein thrombosis (DVT) of left upper extremity (Acute ~09/2022). Medical History (Updated 11/25/22 @ 17:44 by Kerri Barbosa MD). Abnormal bone scan of lumbar spine (~11/2019). L2; F/U study 2021 shows degenerative changes without concern for metastatic disease. Abnormal radionuclide bone scan (~06/2022). L rib. Chemotherapy-induced neuropathy. Hands. Encounter for central line placement (~05/15/19). PORT (chemo). Invasive ductal carcinoma of breast (~04/04/19). s/p R breast mastectomy. [facility] Onc--05/2019 chemo, rad tx. 11/20/2019 [facility] _Dr Valdes. 12/18/19 F/U w Dr Rae ([facility]) S/P xrt completion. [facility] note from 08/10/21 Breast 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, Hormone receptor positive malignant neoplasm of breast. Port-A-Cath in place. Removed. Surgical History . History of appendectomy. History of colonoscopy (~05/28/19). History of mastectomy. R, [facility]. History of tubal ligation PREVIOUS FUNCTIONAL STATUS/SOCIAL/FAMILY SUPPORTS:: Nery resides in a private home in [place] with Conner. 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 Nery is receiving palliative chemo for metastatic breast cancer. Until recently she was able to ambulate without assistive devices and drive. CURRENT FUNCTIONAL STATUS:: Nery is lying in bed when CM met with her. She is awake, alert and able to engage in conversation. Nery shares that she is receiving Chemo at [facility], and feels her treatment is going well. Per pt, her next scheduled treatment is Tuesday (11/30/22). Nery plans to discharge home with her when medically ready. ADVANCE DIRECTIVES:: On file, [facility] is [facility] Has patient been provided with info about the portal/API?: Yes Did the patient sign up for the portal?: Yes (Prior to admission) CODE STATUS:: Full Code INSURANCE COVERAGE / FINANCIAL ISSUES:: [employer] CURRENT HOME/COMMUNITY SERVICES/EQUIPMENT:: [employer] Gorman at [facility]/Palliative Chemo PRIMARY CARE PHYSICIAN:: Mary Chinchilla POTENTIAL DISCHARGE NEEDS:: Follow up appointments, D/C plan of care. PATIENT/FAMILY EDUCATION NEEDS:: Review discharge instructions, limitations, medications and plan to follow up with community providers. Discuss Ask Me Three and goals of self care. TRANSPORTATION:: Via private vehicle with family. PLAN:: Nery is being closely monitored and treated and PT is ordered. A Palliative consult is scheduled for today. CM will continue to support patient and her discharge planning considerations Anticipate, she will discharge home via private vehicle with family when medically ready with new [facility] services (if indicated). CM will follow.
[2022-11-26] MEDS: HYDROmorphone 2 MG/ML SYR 0.5 MG IVP (09:58)
--- NOTE | 2022-11-26 10:45 | IN_ITS ---
Date of service: 11/26/22 Time of Service: 10:44 PT Notes Visit Reasons: Dehydration,Metastatic Breast Cancer Physical Therapy Inpatient Initial Evaluation Date: 11/26/2022 Referring Doctor: Kerri Barbosa MD PT Orders: PT CONSULT: limited ability to ambulate Precautions: Standard. Activity as tolerated Patient Profile/Admitting Diagnosis:?? Patient is a 72-year-old female with past medical history sent significant for breast cancer with disease to the liver and bone who was admitted on 11/25/22 for management of acute dehydration, ascites, bilateral pleural effusion, and generalized weakness. PMHX:? All Active Problems?(Updated 11/25/22 @ 17:44 by Kerri Barbosa MD) Discharge planning issues (Acute) Ascites (Acute) Generalized weakness (Acute) Liver metastases (Acute) Metastatic breast cancer (Acute) Bone metastases (Acute) Acute dehydration (Acute) Bilateral pleural effusion (Acute) Hyperbilirubinemia (Acute) Liver metastases (Acute ~09/2022) [facility] [place] Hem Onc note 11/02/22. 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 current use of aromatase inhibitor (Chronic) [facility] [place] HEM ONC 09/29/21 note Lumbar radiculopathy (Acute ~2021) R ant thigh following L2; degenerative disease on bone scan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 (Acute) Deep vein thrombosis (DVT) of left upper extremity (Acute ~09/2022) Medical History?(Updated 11/25/22 @ 17:44 by Kerri Barbosa MD) Abnormal bone scan of lumbar spine (~11/2019) L2; F/U study 2021 shows degenerative changes without concern for metastatic disease Abnormal radionuclide bone scan (~06/2022) L rib Chemotherapy-induced neuropathy Hands Encounter for central line placement (~05/15/19) PORT (chemo)Invasive ductal carcinoma of breast (~04/04/19) s/p R breast mastectomy [facility] [place] [place] Onc--05/2019 chemo, rad tx 11/20/2019 [facility] Rad Onc _Dr Valdes 12/18/19 F/U w Dr Rae ([facility] [place]) S/P xrt completion [facility] note from 08/10/21 Breast 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, 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 Lives in a private home with her , who has some mobility issues, but is able to care for himself independently. Equipment Owned/DME: Cane Subjective: Reports new onset back pain with walking activity using FWW. Mildly lightheaded. Denies headache and chest pain. Objective:? General Observation: Resting in bed with IV in LUE. Mental Status: A&Ox3. Pleasant and cooperative. Pain: 3-4/10 pain in low back after ambualtion using FWW ROM: Right Upper Extremity: Shoulder Flexion lacks the last 25% of AROM. Shoulder abduction lacks the last 25% of AROM. Elbow flexion WFL. Wrist flexion WFL. Functional opening and closing of hand WFL. Left Upper Extremity: Shoulder Flexion lacks the last 25% of AROM. Shoulder abduction lacks the last 25% of AROM. Elbow flexion WFL. Wrist flexion WFL. Functional opening and closing of hand WFL. Right Lower Extremity: Hip flexion WFL. Hip abduction WFL. Knee flexion WFL. Ankle dorsiflexion WFL. Ankle plantarflexion WFL. Left Lower Extremity: Hip flexion WFL. Hip abduction WFL. Knee flexion WFL. Ankle dorsiflexion WFL. Ankle plantarflexion WFL Strength: Right Upper Extremity: Shoulder flexors 3-/5. Shoulder abductors 3-/5. Elbow fle xors 4/5. Elbow extensors 4/5. Marklogic Developer strong. Left Upper Extremity: Shoulder flexors 3-/5. Shoulder abductors 3-/5. Elbow flexors 4/5. Elbow extensors 4/5. Mark[employer] Developer strong. Right Lower Extremity: Hip flexors 4-/5. Hip abductors 4-/5. Knee flexors 4-/5. Knee extensors 4-/5. Ankle dorsiflexors 4-/5. Ankle plantarflexors 4-/5. Left Lower Extremity:Hip flexors 3+/5. Hip abductors 3+/5. Knee flexors 53+5. Knee extensors 3+/5. Ankle dorsiflexors 3+/5. Ankle plantarflexors 3+/5. Bed Mobility/Transfers: supine-sit: stand by assist sit-supine: stand by assist sit-stand: stand by assist stand-sit: stand by assist Gait:? 200 feet using FWW with front-wheeled walker. reported fatigue and low back pain after ambulation that rexolved with rest. Balance:? Static Sitting: Normal Dynamic Sitting: Normal Static Standing: Fair Dynamic Standing: Fair Special Tests: Mobility Limitations Standardized Measure [facility] 6 clicks Basic Mobility Inpatient Short Form: Raw Score: 22? CMS Score: 21% impairment ? ? ? Informed Consent/Education:? Patient instructed in purpose of PT consult and plan of care. Assessment:?? Patient is a 72-year-old female with past medical history sent significant for breast cancer with disease to the liver and bone who was admitted on 11/25/22 for management of acute dehydration, ascites, bilateral pleural effusion, and generalized weakness. Patient presents with clinical signs and symptoms consistent with current/admitting diagnoses that have resulted to mobility limitations, gait instability, generalized weakness, and overall ADL decline as demonstrated by the following impairment level findings: 1. Decreased strength to B UE/LE major muscle groups with L UE/LE more affected 2. Impaired standing balance 3. Impaired activity tolerance 4. Limitation of joint range of motion in B shoulders and hips 5. Fatigue Impairments are contributing to the following functional limitations: 1. Difficulty with ambulation without assistive device 2. Increased completion time for mobility ADL performance 3. Increased risk for falls 4. Difficulty with managing steps alone safely Patient is assessed as a moderate complexity based on the following: History: 72-year-old female with past medical history as indicated above Examination: Demonstrable impairment in strength, balance, and mobility level with underlying impairments and functional limitations as exhibited above as well as deficit score of 21% utilizing the [facility] Mobility Inpatient Short Form Presentation: Evolving Decision Makin moderate complexity Goals: Goals X1 week 1. Supine-Sit independent 2. Sit-Supine independent 3. Sit-Stand independent 4. Stand-Sit independent with SPC 5. Bed-Chair independent with SPC 6. Chair-Bed independent with SPC 7. Independent gait on level surface with use of SPC for at least 300 feet without report of pain nor dyspnea 8. Independent stair negotiation while holding onto B rails for at least 3 steps without report of pain nor dyspnea 9. Independent with home exercise program 10. Good static and dynamic standing balance/tolerance Plan of Care/Treatment Plan: 1-2x/day, 7 days/week x 1 week. Plan of care has been reviewed with the TAKE DOWN SORTER providing the service under Physical Therapy direction. Initiate Physical Therapy intervention for pain management as needed, strengthening, bed mobility, transfers, gait, stairs, balance training, and use of assistive device. DISCHARGE RECOMMENDATIONS: [] Home with no services [] [X] Home with services. Home when medically cleared by hospitalist. Recommend home health PT services in order to progress mobility level using least restrictive assistive ambulatory device, assess home safety, identify additional equipment needs, and establish a functional maintenance program that will increase ability of patient to remain at home. [] Home with outpatient PT [] [] SNF for continued rehabilitation [] [] Residential Care [] [] SNF versus LTC based on ability to participate and progress [] TREATMENT CODE/TIME: 73002 x 24 minutes beginning at 10:45 AM. Thank you for the opportunity to participate in the care of this patient. Arminda Huynh PT, DPT, CLT [facility] [place], [place]
[2022-11-26] MEDS: Dronabinol 2.5 MG CAP PO (12:08)
--- NOTE | 2022-11-26 13:47 | W.PALLCONSUL ---
Date of service: 11/26/22 Time of Service: 13:47 [facility] All Active Problems (Updated 11/25/22 @ 17:44 by Kerri Barbosa MD) Discharge planning issues (Acute) Ascites (Acute) Generalized weakness (Acute) Liver metastases (Acute) Metastatic breast cancer (Acute) Bone metastases (Acute) Acute dehydration (Acute) Bilateral pleural effusion (Acute) Hyperbilirubinemia (Acute) Liver metastases (Acute ~09/2022) [facility] [place]. 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 current use of aromatase inhibitor (Chronic) [facility] [place] 09/29/21 note Lumbar radiculopathy (Acute ~2021) R ant thigh following L2; degenerative disease on bone scan 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 (Acute) Deep vein thrombosis (DVT) of left upper extremity (Acute ~09/2022) Medical History (Updated 11/25/22 @ 17:44 by Kerri Barbosa MD) Abnormal bone scan of lumbar spine (~11/2019) L2; F/U study 2021 shows degenerative changes without concern for metastatic disease Abnormal radionuclide bone scan (~06/2022) L rib Chemotherapy-induced neuropathy Hands Encounter for central line placement (~05/15/19) PORT (chemo) Invasive ductal carcinoma of breast (~04/04/19) s/p R breast mastectomy [facility] [place]--05/2019 chemo, rad tx 11/20/2019 [facility] Rad Onc _Dr Valdes 12/18/19 F/U w Dr Rae ([facility] S/P xrt completion [facility] [place] 08/10/21 Breast 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, Hormone receptor positive malignant neoplasm of breast Port-A-Cath in place Removed Surgical History History of appendectomy History of colonoscopy (~05/28/19) History of mastectomy [facility] History of tubal ligation Family History Mother , 47 yo,ovarian cancer Ovarian cancer Father , 82 yo. heart related. (didn't wake up one morning) Heart disease Alcohol abuse Coronary artery disease Brother Alcohol abuse Coronary artery disease Maternal Grandfather Alcohol abuse Coronary artery disease Son Alcohol abuse Coronary artery disease Myocardial infarction Sister Hypertension Paternal Grandmother Stroke Paternal Grandfather Stroke Other Family history of coronary artery disease Social History Smoking/Tobacco Use Status: Never Smoking risk assessment performed?: Yes Alcohol Intake: current Alcohol Intake frequency: holidays/special occasions only Drug use: Never Substance use type: does not use Adopted: No Caregiver/Support person: No Foster care: No Household members: spouse and family Housing: house Number of Children: 3 number of grandchildren: 9 Communication Needs: None Education Level: master's degree Do you need help understanding health information?: Rarely 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, [employer]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 Pets and animals: Yes (2 cats and dog) Sexually active: No Do you think of yourself as: straight/heterosexual Current gender identity: female What is your relationship status?: How often do you talk on the phone with friends or family?: three or more times per week How often do you get together with friends or relatives?: three or more times per week How often do you attend sabianism or voodoo services?: 4 or more times per year Do you belong to any clubs or organized social groups?: yes Panel score (0-1 are the most socially isolated patients): 4 What type of physical activity do you participate in: walking Duration: 15-30 minutes/day Frequency: 1-2 times per week Nemo/Quaker: Episcopalian Special nemo needs: No Seatbelt use: always Helmet use: No Drive intox or ride w/intox class b truck driver: No Do you feel safe at home: Yes Do you feel safe in your relationship?: Yes Results Last Vital Signs Temp 37 C 11/26/22 11:13 Pulse 85 11/26/22 11:13 Resp 14 11/26/22 11:13 BP 108/70 11/26/22 11:13 Pulse Ox 91 L 11/26/22 11:13 Labs Result diagrams: 11/26/22 06:40 11/26/22 06:40 Labs: Laboratory Results - last 24 hr 11/25/22 11/25/22 11/25/22 11:22 11:22 11:22 WBC Cancelled RBC Cancelled Hgb Cancelled Hct Cancelled MCV Cancelled MCH Cancelled MCHC Cancelled RDW Cancelled Plt Count Cancelled MPV Cancelled Immature Gran % Cancelled Neutrophils % Cancelled Band Neutrophils % Cancelled Lymphocytes % Cancelled Atypical Lymphs % Cancelled Monocytes % Cancelled Eosinophils % Cancelled Basophils % Cancelled Metamyelocytes % Cancelled Myelocytes % Cancelled Promyelocytes % Cancelled Other Cells % Cancelled Nucleated RBC % Cancelled Absolute Neutrophils Cancelled Absolute Lymphocytes Cancelled Absolute Monocytes Cancelled Absolute Eosinophils Cancelled Absolute Basophils Cancelled RBC Morphology Cancelled Polychromasia Cancelled Hypochromasia Cancelled Poikilocytosis Cancelled Basophilic Stippling Cancelled Anisocytosis Cancelled Microcytosis Cancelled Macrocytosis Cancelled Spherocytes Cancelled Tear Drop Cells Cancelled Ovalocytes Cancelled Stomatocytes Cancelled Lazaro-Bronaugh Bodies Cancelled Daniel Cells/Echinocytes Cancelled Acanthocytes (Spur) Cancelled Schistocytes Cancelled Sodium Cancelled Potassium Cancelled Chloride Cancelled Carbon Dioxide Cancelled Anion Gap Cancelled BUN Cancelled Creatinine Cancelled Est GFR (CKD-EPI 2020) Cancelled Glucose Cancelled Calcium Cancelled Magnesium Cancelled Total Bilirubin Cancelled Conjugated Bilirubin AST Cancelled ALT Cancelled Alkaline Phosphatase Cancelled Troponin I Cancelled Total Protein Cancelled Albumin Cancelled Lipase Urine Color Urine Clarity Urine pH Ur Specific Sheridan Urine Protein Urine Ketones Urine Blood Urine Nitrite Urine Bilirubin Urine Urobilinogen Ur Leukocyte Esterase Urine RBC Urine WBC Ur Epithelial Cells Urine Crystals Urine Bacteria Urine Casts Urine Mucus Ur Culture Indicated? Urine Glucose COVID-19 Source Cancelled SARS-CoV-2 (PCR) Cancelled Influenza Type A (PCR) Cancelled Influenza Type B (PCR) Cancelled RSV (PCR) Cancelled 11/25/22 11/25/22 11/25/22 12:18 12:18 12:28 WBC 8.95 RBC 3.36 L Hgb 11.7 Hct 34.0 L MCV 101 H MCH 34.8 H MCHC 34.4 RDW 21.5 H Plt Count 144 MPV 11.2 H Immature Gran % 0.4 Neutrophils % 94.5 Band Neutrophils % Lymphocytes % 2.6 Atypical Lymphs % Monocytes % 2.0 Eosinophils % 0.3 Basophils % 0.2 Metamyelocytes % Myelocytes % Promyelocytes % Other Cells % Nucleated RBC % 0.0 Absolute Neutrophils 8.45 H Absolute Lymphocytes 0.23 L Absolute Monocytes 0.18 Absolute Eosinophils 0.03 Absolute Basophils 0.02 RBC Morphology See Below Polychromasia Hypochromasia Poikilocytosis Basophilic Stippling Anisocytosis 2+ Microcytosis Macrocytosis Spherocytes Tear Drop Cells Ovalocytes Stomatocytes Lazaro-Bronaugh Bodies Daniel Cells/Echinocytes Acanthocytes (Spur) Schistocytes Sodium Potassium Chloride Carbon Dioxide Anion Gap BUN Creatinine Est GFR (CKD-EPI 2020) Glucose Calcium Magnesium Total Bilirubin Conjugated Bilirubin AST ALT Alkaline Phosphatase Troponin I Total Protein Albumin Lipase 94 Urine Color Urine Clarity Urine pH Ur Specific Sheridan Urine Protein Urine Ketones Urine Blood Urine Nitrite Urine Bilirubin Urine Urobilinogen Ur Leukocyte Esterase Urine RBC Urine WBC Ur Epithelial Cells Urine Crystals Urine Bacteria Urine Casts Urine Mucus Ur Culture Indicated? Urine Glucose COVID-19 Source Nasopharynx SARS-CoV-2 (PCR) Negative Influenza Type A (PCR) Negative Influenza Type B (PCR) Negative RSV (PCR) Negative 11/25/22 11/26/22 11/26/22 14:40 06:40 06:40 WBC 9.72 RBC 2.96 L Hgb 10.4 L Hct 30.3 L MCV 102 H MCH 35.1 H MCHC 34.3 RDW 21.5 H Plt Count 129 L MPV 11.1 H Immature Gran % 0.6 Neutrophils % 93.8 Band Neutrophils % Lymphocytes % 2.8 Atypical Lymphs % Monocytes % 2.4 Eosinophils % 0.2 Basophils % 0.2 Metamyelocytes % Myelocytes % Promyelocytes % Other Cells % Nucleated RBC % 0.0 Absolute Neutrophils 9.12 H Absolute Lymphocytes 0.27 L Absolute Monocytes 0.23 Absolute Eosinophils 0.02 Absolute Basophils 0.02 RBC Morphology See Below Polychromasia Hypochromasia Poikilocytosis Basophilic Stippling Anisocytosis 2+ Microcytosis Macrocytosis Spherocytes Tear Drop Cells Ovalocytes Stomatocytes Lazaro-Bronaugh Bodies Daniel Cells/Echinocytes Acanthocytes (Spur) Schistocytes Sodium 138 Potassium 4.1 Chloride 107 Carbon Dioxide 25.0 Anion Gap 6.0 BUN 36 H Creatinine 1.0 Est GFR (CKD-EPI 2020) 59.49 Glucose 100 Calcium 7.6 L Magnesium 2.3 Total Bilirubin 6.1 H Conjugated Bilirubin 4.8 H AST 294 H ALT 126 H Alkaline Phosphatase 402 H Troponin I Total Protein 5.4 L Albumin 1.9 L Lipase Urine Color Yellow Urine Clarity Clear Urine pH 5.5 Ur Specific Sheridan <= 1.005 Urine Protein Trace H Urine Ketones 15 H Urine Blood Trace-intact H Urine Nitrite Negative Urine Bilirubin Small H Urine Urobilinogen 2.0 H Ur Leukocyte Esterase Negative Urine RBC 0-2 Urine WBC 0-2 Ur Epithelial Cells Few Urine Crystals Negative Urine Bacteria Negative Urine Casts Negative Urine Mucus Trace Ur Culture Indicated? No Urine Glucose Negative COVID-19 Source SARS-CoV-2 (PCR) Influenza Type A (PCR) Influenza Type B (PCR) RSV (PCR)
--- NOTE | 2022-11-26 14:10 | CHAPLAIN ---
Nery was resting in bed when I visited. Her two daughters, Kianna and Quita were with her. 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 They were waiting for Bety Guallpa NP from Palliative [facility] to arrive for a consult. When Bety arrives, they willc all Nery's so he can be included in the conversation by speaker phone. Nery mentioned that she hopes PC would be able to help with pain control. I will continue to visit if Nery remains here. She is currently receiving chemo therapy for breast cancer following a mastectomy, and now metastatic cancer.
--- NOTE | 2022-11-26 14:57 | PCNE_ITS ---
Date of service: 11/26/22 Time of Service: 15:39 History of Present Illness Narrative: Nery was seen in her hospital room with her daughters, Quita and Kianna present. Her , Virgil was also present by phone. Nery has a past medical history significant for R breast cancer Dx in 2018. She was treated and went on to have RLE pain last summer (2021). She had further testing that revealed metastatic disease to her bones and liver- Dx in 09/2022. Discussed what Palliative can offer. Discussed pain control. she is taking Gabapentin 100 mg bid and tramadol bid at home- helps some but could be better. She has been receiving hydromorphone in the hospital (only 2 doses) but it makes her sleepy. Discussed different options for home regimen for pain control, however, she prefers not to make changes yet- to be discussed outpatient. She does not have an appetite. She has nausea at times, zofran helps. She has low energy. She is weak. Discussed the possibility of adding Dexamethasone- to hopefully help with pain, nausea, energy level and appetite. Discussed thoracentesis and paracentesis- if she would ever want them. She states she would consider either for comfort, not for further testing. She is clear she wants to be comfortable and wants medications to keep her comfortable. She wants to in her home. She does not know what the plan is for oncology at this point. She has follow up with oncology next week. She is followed by Dr. Gorman To this point, her treatments have been ordered weekly but she has only qualified (based on labs) to have treatments every other week. Discussed CODE status. She was listed as a FULL code, however she is clear that she want to have a peaceful . Reviewed CODEs/intubation, etc. She would like to change her CODE status to DNR/DNI. Her daughters agree with her decision. She was sleepy and choose to defer completing COLST form until her next Palliative visit. Discussed Hospice extensively. She prefers to f/u with oncology and continue with Palliative for now. She has difficulty getting out of the house. Will have Palliative receptionist telephone operator offer- visit at [facility], office visit, home visit. Assessment and Plan Assessment and plan (1) Metastatic breast cancer: Status: Acute (2) Bone metastases: Status: Acute (3) Liver metastases: Status: Acute (4) Ascites: Status: Acute (5) Generalized weakness: Status: Acute (6) Deep vein thrombosis (DVT) of left upper extremity: Status: Acute Qualifiers: Affected thrombotic vein of extremity: other upper extremity vein Chronicity: acute Qualified Code(s): I82.622 - Acute embolism and thrombosis of deep veins of left upper extremity (7) Goals of care, counseling/discussion: Status: Acute (8) Palliative care patient: Status: Acute Assessment and plan: Nery is a very pleasant 72 year old female with a past medical history significant for R breast cancer Dx in 2019. She was treated and went on to have RLE pain last summer (2021). She had further testing that revealed metastatic disease to her bones and liver- Dx in 09/2022. She is found to have pleural effusions bilaterally and ascites. She has been referred to Palliative but has not met with a provider until now. One of her concerns is pain control. she is taking Gabapentin 100 mg bid and tramadol bid at home- helps some but could be better. She has been receiving hydromorphone in the hospital (only 2 doses) but it makes her sleepy. Discussed different options for home regimen for pain control, however, she prefers not to make changes yet- to be discussed outpatient. She has poor appetite, nausea at times, zofran helps. She has low energy. She is weak. Discussed the possibility of adding Dexamethasone- to hopefully help with pain, nausea, energy level and appetite. She and her daughters will discuss with oncology. She would only want thoracentesis and/or paracentesis for comfort, not for further testing. She is clear she wants to be comfortable and wants medications to keep her comfortable. She wants to in her home. She does not know what the plan is for oncology at this point. She has follow up with oncology next week. She is followed by Dr. Gorman To this point, her treatments have been ordered weekly but she has only qualified (based on labs) to have treatments every other week. Reviewed CODE status- She would like to change her CODE status to DNR/DNI. Her daughters agree with her decision. She was sleepy and choose to defer completing COLST form until her next Palliative visit. She has a supportive family. Her daughters, Quita and Kianna were present for the visit in the room and her , Ed was on speaker phone. Discussed Hospice extensively. She prefers to f/u with oncology and continue with Palliative for now. She has difficulty getting out of the house. Will have Palliative receptionist telephone operator offer- visit at [facility], office visit, home visit. Review of Systems Narrative: PER HPI PFSH All Active Problems (Updated 11/27/22 @ 13:42 by Beyt Connors NP) Goals of care, counseling/discussion (Acute) Palliative care patient (Acute) Hypoxia (Acute) Discharge planning issues (Acute) Ascites (Acute) Generalized weakness (Acute) Liver metastases (Acute) Metastatic breast cancer (Acute) Bone metastases (Acute) Acute dehydration (Acute) Bilateral pleural effusion (Acute) Hyperbilirubinemia (Acute) Liver metastases (Acute ~09/2022) [facility] Hem Onc note 11/02/22. 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 current use of aromatase inhibitor (Chronic) [facility] HEM ONC 09/29/21 note Lumbar radiculopathy (Acute ~2021) R ant thigh following L2; degenerative disease on bone scan 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 (Acute) Deep vein thrombosis (DVT) of left upper extremity (Acute ~09/2022) Medical History Abnormal bone scan of lumbar spine (~11/2019) L2; F/U study 2021 shows degenerative changes without concern for metastatic disease Abnormal radionuclide bone scan (~06/2022) L rib Chemotherapy-induced neuropathy Hands Encounter for central line placement (~05/15/19) PORT (chemo) Invasive ductal carcinoma of breast (~04/04/19) s/p R breast mastectomy [facility] Onc--05/2019 chemo, rad tx 11/20/2019 [facility] Rad Onc _Dr Valdes 12/18/19 F/U w Dr Rae ([facility]) S/P xrt completion [facility] note from 08/10/21 Breast 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, 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 heart related. (didn't wake up one morning) Heart disease Alcohol abuse Coronary artery disease Brother Alcohol abuse Coronary artery disease Maternal Grandfather Alcohol abuse Coronary artery disease Son Alcohol abuse Coronary artery disease Myocardial infarction Sister Hypertension Paternal Grandmother Stroke Paternal Grandfather Stroke Other Family history of coronary artery disease Social History Smoking/Tobacco Use Status: Never Smoking risk assessment performed?: Yes Alcohol Intake: current Alcohol Intake frequency: holidays/special occasions only Drug use: Never Substance use type: does not use Adopted: No Caregiver/Support person: No Foster care: No Household members: spouse and family Housing: house Number of Children: 3 number of grandchildren: 9 Communication Needs: None Education Level: master's degree Do you need help understanding health information?: Rarely 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, [employer] Pets and animals: Yes (2 cats and dog) Sexually active: No Do you think of yourself as: straight/heterosexual Current gender identity: female What is your relationship status?: How often do you talk on the phone with friends or family?: three or more times per week How often do you get together with friends or relatives?: three or more times per week How often do you attend yarsani or muslim services?: 4 or more times per year Do you belong to any clubs or organized social groups?: yes Panel score (0-1 are the most socially isolated patients): 4 What type of physical activity do you participate in: walking Duration: 15-30 minutes/day Frequency: 1-2 times per week Nemo/Anabaptist: Adventist Special nemo needs: No Seatbelt use: always Helmet use: No Drive intox or ride w/intox utility driver: No Do you feel safe at home: Yes Do you feel safe in your relationship?: Yes Exam Narrative Exam Narrative: General: very pleasant, well-nourished, elderly female, laying in bed, she is awake but appears to be dozing off at times during the visit. HEENT: normocephalic, atraumatic, EOMI, mm dry. Neck: supple. Respiratory: respirations appear even and unlabored. Extremities: moves BUE extremities freely. Results Last Vital Signs Temp 37 C 11/26/22 11:13 Pulse 85 11/26/22 11:13 Resp 14 11/26/22 11:13 BP 108/70 11/26/22 11:13 Pulse Ox 91 L 11/26/22 11:13 Labs Result diagrams: 11/26/22 06:40 11/27/22 05:26 Labs: Laboratory Results - last 24 hr 11/25/22 11/25/22 11/25/22 11:22 11:22 11:22 WBC Cancelled RBC Cancelled Hgb Cancelled Hct Cancelled MCV Cancelled MCH Cancelled MCHC Cancelled RDW Cancelled Plt Count Cancelled MPV Cancelled Immature Gran % Cancelled Neutrophils % Cancelled Band Neutrophils % Cancelled Lymphocytes % Cancelled Atypical Lymphs % Cancelled Monocytes % Cancelled Eosinophils % Cancelled Basophils % Cancelled Metamyelocytes % Cancelled Myelocytes % Cancelled Promyelocytes % Cancelled Other Cells % Cancelled Nucleated RBC % Cancelled Absolute Neutrophils Cancelled Absolute Lymphocytes Cancelled Absolute Monocytes Cancelled Absolute Eosinophils Cancelled Absolute Basophils Cancelled RBC Morphology Cancelled Polychromasia Cancelled Hypochromasia Cancelled Poikilocytosis Cancelled Basophilic Stippling Cancelled Anisocytosis Cancelled Microcytosis Cancelled Macrocytosis Cancelled Spherocytes Cancelled Tear Drop Cells Cancelled Ovalocytes Cancelled Stomatocytes Cancelled [place] Bodies Cancelled Daniel Cells/Echinocytes Cancelled Acanthocytes (Spur) Cancelled Schistocytes Cancelled Sodium Cancelled Potassium Cancelled Chloride Cancelled Carbon Dioxide Cancelled Anion Gap Cancelled BUN Cancelled Creatinine Cancelled Est GFR (CKD-EPI 2020) Cancelled Glucose Cancelled Calcium Cancelled Magnesium Cancelled Total Bilirubin Cancelled Conjugated Bilirubin AST Cancelled ALT Cancelled Alkaline Phosphatase Cancelled Troponin I Cancelled Total Protein Cancelled Albumin Cancelled Lipase COVID-19 Source Cancelled SARS-CoV-2 (PCR) Cancelled Influenza Type A (PCR) Cancelled Influenza Type B (PCR) Cancelled RSV (PCR) Cancelled 11/25/22 11/25/22 11/26/22 12:18 12:28 06:40 WBC RBC Hgb Hct MCV MCH MCHC RDW Plt Count MPV Immature Gran % Neutrophils % Band Neutrophils % Lymphocytes % Atypical Lymphs % Monocytes % Eosinophils % Basophils % Metamyelocytes % Myelocytes % Promyelocytes % Other Cells % Nucleated RBC % Absolute Neutrophils Absolute Lymphocytes Absolute Monocytes Absolute Eosinophils Absolute Basophils RBC Morphology Polychromasia Hypochromasia Poikilocytosis Basophilic Stippling Anisocytosis Microcytosis Macrocytosis Spherocytes Tear Drop Cells Ovalocytes Stomatocytes [place] Bodies Daniel Cells/Echinocytes Acanthocytes (Spur) Schistocytes Sodium 138 Potassium 4.1 Chloride 107 Carbon Dioxide 25.0 Anion Gap 6.0 BUN 36 H Creatinine 1.0 Est GFR (CKD-EPI 2020) 59.49 Glucose 100 Calcium 7.6 L Magnesium 2.3 Total Bilirubin 6.1 H Conjugated Bilirubin 4.8 H AST 294 H ALT 126 H Alkaline Phosphatase 402 H Troponin I Total Protein 5.4 L Albumin 1.9 L Lipase 94 COVID-19 Source Nasopharynx SARS-CoV-2 (PCR) Negative Influenza Type A (PCR) Negative Influenza Type B (PCR) Negative RSV (PCR) Negative 11/26/22 06:40 WBC 9.72 RBC 2.96 L Hgb 10.4 L Hct 30.3 L MCV 102 H MCH 35.1 H MCHC 34.3 RDW 21.5 H Plt Count 129 L MPV 11.1 H Immature Gran % 0.6 Neutrophils % 93.8 Band Neutrophils % Lymphocytes % 2.8 Atypical Lymphs % Monocytes % 2.4 Eosinophils % 0.2 Basophils % 0.2 Metamyelocytes % Myelocytes % Promyelocytes % Other Cells % Nucleated RBC % 0.0 Absolute Neutrophils 9.12 H Absolute Lymphocytes 0.27 L Absolute Monocytes 0.23 Absolute Eosinophils 0.02 Absolute Basophils 0.02 RBC Morphology See Below Polychromasia Hypochromasia Poikilocytosis Basophilic Stippling Anisocytosis 2+ Microcytosis Macrocytosis Spherocytes Tear Drop Cells Ovalocytes Stomatocytes [place] Bodies Widen Cells/Echinocytes Acanthocytes (Spur) Schistocytes Sodium Potassium Chloride Carbon Dioxide Anion Gap BUN Creatinine Est GFR (CKD-EPI 2020) Glucose Calcium Magnesium Total Bilirubin Conjugated Bilirubin AST ALT Alkaline Phosphatase Troponin I Total Protein Albumin Lipase COVID-19 Source SARS-CoV-2 (PCR) Influenza Type A (PCR) Influenza Type B (PCR) RSV (PCR)
--- NOTE | 2022-11-26 15:38 | PT.INTREAT ---
PT Notes Visit Reasons: Dehydration,Metastatic Breast Cancer Date: 11/26/2022 PRECAUTIONS: Fall, activity as tolerated SUBJECTIVE: Pt in bed when approached for therapy this afternoon, pt agreed to participating with therapy. OBJECTIVE:? PAIN: Patient denies pain ? BED MOBILITY/TRANSFERS? ? Supine to EOB: min A EOB to supine: min A ? Sit-stand: min A? Stand-sit: SBA? GAIT? Assistive Device: FWW ? Weight bearing: Full Assist: CGA ? Distance: 150'? Deviation: Ledy decreased. Step height decreased. Step length decreased.? ASSESSMENT: pt gait trained without O2 support with pt sa02 staying at 92-93% during gait training. PLAN: Continue with general conditioning for improved activity tolerance. TREATMENT CODE/TIME: 30 minutes 30885 (2:05-2:35pm)
[2022-11-26] MEDS: traMADol 50 MG TAB PO (17:04)
[2022-11-26] MEDS: Ondansetron 4 MG/2 ML VIAL IVP (17:10)
--- NOTE | 2022-11-26 18:11 | PGE_ITS ---
Date of Service Date of service: 11/26/22 Time of Service: 18:11 Assessment and Plan Assessment and plan (1) Acute dehydration: Status: Acute Assessment and plan: Continue cautious IV hydration. Encourage PO fluids. Antiemetics and start PPI. I spoke with Nery about the IVF possibly worsening her pleural effusions and ascites. We are not at that point yet. (2) Hypoxia: Status: Acute Assessment and plan: No pneumonia or PE. I suspect that bilateral pleural effusions are contributing as is atelectasis. We discussed how doing a thoracenthesis might help Nery get off of oxygen. Will assess ambulatory pulse ox tomorrow. If continues to require O2, I think th is discussion needs to be repeated. (3) Metastatic breast cancer: Status: Acute Assessment and plan: On palliative chemo/XRT. Seen by palliative care. Code status changed to DNR/DNI. Will need follow up as outpatient. (4) Ascites: Status: Acute Assessment and plan: No evidence of SBP. Likely related to portal hypertension and hypoalbuminemic state. Cautious hydration. Switch to albumin early. Consider paracenthesis. (5) Bilateral pleural effusion: Status: Acute Assessment and plan: As above. Consider thoracenthesis (whether inpatient or outpatient). (6) Generalized weakness: Status: Acute Assessment and plan: PT Consulted (7) Deep vein thrombosis (DVT) of left upper extremity: Status: Acute Assessment and plan: Continue anticoagulation Qualifiers: Affected thrombotic vein of extremity: other upper extremity vein Chronicity: acute Qualified Code(s): I82.622 - Acute embolism and thrombosis of deep veins of left upper extremity (8) Discharge planning issues: Status: Acute Assessment and plan: DNR/DNI Met with palliative care. Patient is not on oxygen at home, so oxygen would be new. Subjective Subjective Interval history since last seen: Ms Rueda got nauseated today from the smell of the soup. She did not vomit and is feeling better now. She denies dizziness, chest pain, shortness of breath, abdominal pain. She does endorse symptoms of heart burn. Exam Narrative Exam Narrative: General: Pleasant female who looks weak and tired, A&Ox3 HEENT: EOMI, dry MM Cardiovascular: RRR, no m/r/g Lungs: CTAB Gastrointestinal: soft, nontender, distended with mild ascites Extremities: trace edema BLEs, trace pedal pulses B, no c/c, no lesions on B feet. Objective Last Vital Signs Temp 36.7 C 11/26/22 15:44 Pulse 81 11/26/22 15:44 Resp 20 11/26/22 15:44 BP 100/63 11/26/22 15:44 Pulse Ox 94 11/26/22 15:44 Laboratory Results - last 24 hr 11/26/22 11/26/22 06:40 06:40 WBC 9.72 RBC 2.96 L Hgb 10.4 L Hct 30.3 L MCV 102 H MCH 35.1 H MCHC 34.3 RDW 21.5 H Plt Count 129 L MPV 11.1 H Immature Gran % 0.6 Neutrophils % 93.8 Lymphocytes % 2.8 Monocytes % 2.4 Eosinophils % 0.2 Basophils % 0.2 Nucleated RBC % 0.0 Absolute Neutrophils 9.12 H Absolute Lymphocytes 0.27 L Absolute Monocytes 0.23 Absolute Eosinophils 0.02 Absolute Basophils 0.02 RBC Morphology See Below Anisocytosis 2+ Sodium 138 Potassium 4.1 Chloride 107 Carbon Dioxide 25.0 Anion Gap 6.0 BUN 36 H Creatinine 1.0 Est GFR (CKD-EPI 2020) 59.49 Glucose 100 Calcium 7.6 L Magnesium 2.3 Total Bilirubin 6.1 H Conjugated Bilirubin 4.8 H AST 294 H ALT 126 H Alkaline Phosphatase 402 H Total Protein 5.4 L Albumin 1.9 L PAWSS Have you Been Recently Intoxicated or Drunk Within the Last 30 days?: No Have you Ever Experienced Previous Episodes of Alcohol Withdrawal?: No Have you ever Experienced Withdrawal Seizures?: No Have you ever Experienced Delirium Tremens(DT)s?: No Evidence of Increased Autonomic Activity (i.e. HR>120, tremor, sweating, agitation, nausea)?: No Result: 0 Time Spent with Patient Time Spent with Patient: 25-34 minutes Time was spent: preparing to see the patient(eg.review tests), obtaining and/or reviewing separately otained hiistory, ordering medications,tests, procedures, referring, communicating with other health care information associate, indepentently interpreting results, counseling the patient and care coordination
[2022-11-26] MEDS: Pantoprazole 40 MG VIAL IVP (18:32)
[2022-11-26] MEDS: Bimatoprost 0.01% 2.5 ML BTL OP (19:45)
[2022-11-26] MEDS: Prochlorperazine 10 MG TAB PO (19:58)
[2022-11-27] VITALS (8 sets, daily range): BP systolic 92–112; BP diastolic 60–70; PULSE 82–88; RESP 12–16; TEMP 36.3–36.9; O2SAT 90–96
[2022-11-27] MEDS: Normal Saline Flush 10 ML SYR IVP (00:11)
[2022-11-27] MEDS: HYDROmorphone 2 MG/ML SYR 0.5 MG IVP (00:11)
[2022-11-27 06:42] LABS: Anion Gap 6.3 mmol/L (3-11); BUN 43 mg/dL (7-18); CO2 25.7 mmol/L (21.0-32.0); CREATININE 1.1 mg/dL (0.55-1.02); Calcium 7.7 mg/dL (8.5-10.1); Chloride 107 mmol/L (98-107); Estimated GFR 53.06 (mL/min/1.73m2); Glucose 79 mg/dL (74-106); Magnesium 2.4 mg/dL (1.8-2.4); Potassium 4.5 mmol/L (3.5-5.1); Sodium 139 mmol/L (136-145)
[2022-11-27] MEDS: traMADol 50 MG TAB PO (08:41)
[2022-11-27] MEDS: Potassium Chloride 10 MEQ TABCR PO (08:41)
[2022-11-27] MEDS: Gabapentin 100 MG CAP PO ×2 (08:41→19:37)
[2022-11-27] MEDS: Pantoprazole 40 MG TABCR PO (08:41)
[2022-11-27] MEDS: Dronabinol 2.5 MG CAP PO ×2 (08:41→11:39)
[2022-11-27] MEDS: Apixaban 5 MG TAB PO ×2 (08:42→19:37)
[2022-11-27] MEDS: Multivitamin TAB 1 TAB PO (08:42)
[2022-11-27] MEDS: Vitamins B Comp w/C TAB 1 TAB PO (08:42)
--- NOTE | 2022-11-27 09:13 | PT.INTREAT ---
PT Notes Visit Reasons: Dehydration,Metastatic Breast Cancer Date: 11/27/2022 PRECAUTIONS: Fall, activity as tolerated SUBJECTIVE: Pt in bed when approached for therapy this morning, pt agreed to participating with therapy. OBJECTIVE:? PAIN: Patient denies pain ? BED MOBILITY/TRANSFERS? ? Supine to EOB: Supervision EOB to supine: min A ? Sit-stand: SBA? Stand-sit: SBA? GAIT? Assistive Device: FWW ? Weight bearing: Full Assist: SBA ? Distance: 70' x2 ? Deviation: Ledy decreased. Step height decreased. Step length decreased.? Stair negotiation training 4 steps x6 / 6 steps x4 bilateral handrail step through gait pattern. ? ASSESSMENT: pt gait trained without O2 support with pt sa02 staying at 92-93% during gait training. pt returned to bed after therapy. PLAN: DC to home with home health PT. TREATMENT CODE/TIME: 25 minutes [id number] (8:40-9:05pm)
[2022-11-27] MEDS: Lactated Ringers 1,000 ML 85 ML IV (11:47)
--- NOTE | 2022-11-27 18:26 | PGE_ITS ---
Date of Service Date of service: 11/27/22 Time of Service: 18:27 Assessment and Plan Assessment and plan (1) Acute dehydration: Status: Acute Assessment and plan: continue iv fluid hydration but I have decreased the rate. I will give albumin as she is hypoalbuminemic and seems to be 3rd spacing fluid. I will also put her on protein supplements. I encouraged her to increase her oral intake so we can get rid of the iv fluids. It has been 3 1/2 yrs since her last echo. I will repeat this on Tuesday to be sure there is no component of CHF contributing to her peripheral edema. (2) Hypoxia: Status: Acute Assessment and plan: No clinical evidence for pneumonia and no evidence for P.E. although she has hx of LUE DVT however she has been on apixaban. I think her hypoxia is secondary to pleural effusion and atelectasis. At present she is not ready to accept thorace ntesis although I think this would at least temporarily help and also may give us diagnostic information if this turns out to be malignant effusion. (3) Metastatic breast cancer: Status: Acute Assessment and plan: On palliative chemo/XRT. Seen by palliative care. Code status changed to DNR/DNI. Will need follow up as outpatient. (4) Ascites: Status: Acute Assessment and plan: No evidence of SBP. Likely related to portal hypertension and hypoalbuminemic state and possible malignant ascites given her liver and bone mets. Cautious hydration. I have added albumen trial. Consider paracenthesis. (5) Bilateral pleural effusion: Status: Acute Assessment and plan: As above. Consider thoracenthesis, I will ask for pulmonary consult on Tuesday (6) Generalized weakness: Status: Acute Assessment and plan: PT Consulted (7) Deep vein thrombosis (DVT) of left upper extremity: Status: Acute Assessment and plan: Continue anticoagulation w/ apixaban Qualifiers: Affected thrombotic vein of extremity: other upper extremity vein Chronicity: acute Qualified Code(s): I82.622 - Acute embolism and thrombosis of deep veins of left upper extremity (8) Discharge planning issues: Status: Acute Assessment and plan: DNR/DNI Met with palliative care. Patient is not on oxygen at home, so oxygen would be new. Subjective Subjective Interval history since last seen: Nery states that her pain is reasonably controlled right now. However, her daughters have expressed concern that the Tramadol which she is getting regularly is causing her dry mouth and nausea which limits her po intake. They would like a pain patch that would give a more slower controlled release. She has not been tried on fentanyl patch. I told them that we could try low dose fentanyl patch but that I would dc her hydromorphone iv order so as not to overdose her w/ too many different narcotics. As for her breathing, she is not dyspneic at rest although she still needs supplemental oxygen. Her CT scan of her chest demonstrated significant bilateral pleural effusions w/ left >> right. she also has bilateral basilar infiltrates; however, clinically she does not behave like this is pneumonia. She has no fever, no productive cough. She has metastatic breast cancer w/ liver and bone mets and now w/ ascites and pleural effusions, I am concerned that this is malignant effusions. I discussed w/ her possible thoracentesis for both diagnostic and therapeutic purposes. She wants to wait on this. I told her that I would get pulmonary consult on Tuesday to see if Dr. Valdivia would recommend thoracentesis. Her daughters feel that a pulmonary consult would be good. The family is also concerned that Nery was scheduled to meet w/ Dr. Cobos on Tuesday. Nery has only had 3 chemo treatments for her metastatic breast cancer. However, it seems to me that it is rather aggressive and may not be amenable to continued treatments. I told them that if Nery is not able to be discharged by Tuesday to meet w/ Dr. Cobos that we would arrange a phone call w/ him on Tuesday. Exam Narrative Exam Narrative: Nery appears fatigued she is able to to participate in the conversation with the family regarding her care. Lungs are clear anteriorly posteriorly she has bibasilar rales no rhonchi or wheezing Heart is regular rate and rhythm Abdomen slightly distended soft mild tenderness with palpation, palpable hepatomegaly Lower extremities with 2+ pitting edema to the mid tibia Objective Last Vital Signs Temp 36.9 C 11/27/22 16:34 Pulse 88 11/27/22 16:34 Resp 16 11/27/22 16:34 BP 104/68 11/27/22 16:34 Pulse Ox 93 11/27/22 16:34 Laboratory Results - last 24 hr 11/27/22 05:26 Sodium 139 Potassium 4.5 Chloride 107 Carbon Dioxide 25.7 Anion Gap 6.3 BUN 43 H Creatinine 1.1 H Est GFR (CKD-EPI 2020) 53.06 Glucose 79 Calcium 7.7 L Magnesium 2.4 PAWSS Have you Been Recently Intoxicated or Drunk Within the Last 30 days?: No Have you Ever Experienced Previous Episodes of Alcohol Withdrawal?: No Have you ever Experienced Withdrawal Seizures?: No Have you ever Experienced Delirium Tremens(DT)s?: No Evidence of Increased Autonomic Activity (i.e. HR>120, tremor, sweating, agitation, nausea)?: No Result: 0 Time Spent with Patient Time Spent with Patient: 25-34 minutes Time was spent: preparing to see the patient(eg.review tests), obtaining and/or reviewing separately otained hiistory, ordering medications,tests, procedures, counseling the patient and care coordination
[2022-11-27] MEDS: ALBUMIN HUMAN 25 GM/100 ML BTL IV (19:31)
[2022-11-27] MEDS: Docusate Sodium 100 MG CAP PO (19:37)
[2022-11-27] MEDS: fentaNYL 12 MCG PATCH TD (19:39)
[2022-11-27] MEDS: Protein Nutritional Supplement 16 GM 1 OUNCE PACKET PO (20:16)
[2022-11-27] MEDS: Bimatoprost 0.01% 2.5 ML BTL OP (22:39)
[2022-11-28] VITALS (7 sets, daily range): BP systolic 89–110; BP diastolic 54–72; PULSE 78–86; RESP 14–16; TEMP 36.2–36.7; O2SAT 93–98
[2022-11-28] MEDS: Lactated Ringers 1,000 ML 50 ML IV (04:00)
[2022-11-28] MEDS: ALBUMIN HUMAN 25 GM/100 ML BTL IV ×3 (04:42→17:02)
[2022-11-28 07:14] LABS: Abs Immature Grans 0.03 10^3/uL (0.0-0.06); Absolute Basophil Count 0.02 10^3/uL (0.0-0.2); Absolute Lymphocyte Count 0.39 10^3/uL (1.2-3.4); Absolute Monocyte Count 0.12 10^3/uL (0.1-0.8); Absolute Neutrophil Count 4.07 10^3/uL (1.2-6.7); Basophils % 0.4; Eosinophils % 2.1; HCT 25.5 % (36.0-46.0); HGB 8.6 g/dL (11.2-15.7); Immature Grans % 0.6; Lymphocytes % 8.2; MCH 34.4 pg (27.0-33.0); MCHC 33.7 % (32.0-36.0); MCV 102 fL (80-95); MPV 11.5 fL (8.0-11.0); Monocytes % 2.5; Neutrophils % 86.2; RDW 21.3 % (11.7-14.6); RDW-SD 76.3 fL; WBC 4.73 10^3/uL (4.4-10.8)
[2022-11-28 07:59] LABS: ALT 92 U/L (14-59); AST 184 U/L (15-37); Albumin 2.9 g/dL (3.4-5.0); Alkaline Phosphatase 324 U/L (46-116); Anion Gap 7.8 mmol/L (3-11); BUN 37 mg/dL (7-18); Bilirubin, Total 5.8 mg/dL (0.2-1.0); CO2 26.2 mmol/L (21.0-32.0); Calcium 7.8 mg/dL (8.5-10.1); Chloride 107 mmol/L (98-107); Estimated GFR 59.49 (mL/min/1.73m2); Folate 14.7 ng/mL (8.6-20.0); Glucose 81 mg/dL (74-106); Potassium 3.9 mmol/L (3.5-5.1); Sodium 141 mmol/L (136-145); Total Protein 5.8 g/dL (6.4-8.2)
[2022-11-28 08:01] LABS: Vitamin B12 > 2000 pg/mL (193-986)
[2022-11-28] MEDS: Protein Nutritional Supplement 16 GM 1 OUNCE PACKET PO ×2 (08:09→14:19)
[2022-11-28] MEDS: Docusate Sodium 100 MG CAP PO ×2 (08:09→21:43)
[2022-11-28] MEDS: Apixaban 5 MG TAB PO ×2 (08:09→21:42)
[2022-11-28] MEDS: Potassium Chloride 10 MEQ TABCR PO (08:10)
[2022-11-28] MEDS: Vitamins B Comp w/C TAB 1 TAB PO (08:10)
[2022-11-28] MEDS: Pantoprazole 40 MG TABCR PO ×2 (08:10→21:42)
[2022-11-28] MEDS: Dronabinol 2.5 MG CAP PO ×2 (08:10→11:07)
[2022-11-28] MEDS: Gabapentin 100 MG CAP PO ×2 (08:10→21:42)
[2022-11-28] MEDS: Multivitamin TAB 1 TAB PO (08:11)
[2022-11-28 08:13] LABS: Anisocytosis 2+; Basophilic Stippling Present; Diff Comment Diff Reviewed; Hypochromasia 2+; Platelet Count 109 10^3/uL (130-400)
[2022-11-28 08:14] LABS: Poikilocytes 2+
[2022-11-28 08:23] LABS: NT-proBNP 475 pg/mL (<300)
[2022-11-28 08:25] LABS: Procalcitonin 1.5 ng/mL
[2022-11-28 10:02] LABS: Bilirubin Small (Negative); Blood Negative (Negative); Clarity Sl Cloudy (Clear); Glucose Negative (Negative); Ketones Negative (Negative); Leukocyte Esterase Negative (Negative); Nitrite Negative (Negative); Specific Gravity 1.015 (1.005-1.025); Urobilinogen >=8.0 EU/dL (Up TO 0.2); pH 5.5 (5-8)
[2022-11-28 10:17] LABS: Epithelial Cells Moderate HPF (Negative); RBC 0-2 HPF (0-2)
[2022-11-28 10:18] LABS: Other Cells Few Transitional (Negative)
[2022-11-28 10:19] LABS: Bacteria Moderate HPF (Negative); Crystals Negative HPF (Negative); Mucus Negative (Negative)
[2022-11-28 10:20] LABS: C & S Indicated? No/Sq. Contamination; Casts 3-5 Coarse Granular LPF (Negative)
--- NOTE | 2022-11-28 10:56 | W.PM.PROGNOT ---
Date of Service Date of service: 11/28/22 Time of Service: 10:56 Assessment and Plan Assessment and plan (1) Acute dehydration: Status: Resolved Assessment and plan: dc iv fluids given her ascites and pleural effusions and leg edema. she seems to be drinking adequately that she should not need further iv fluids. Her Hb has dropped 3 gm in 3 day. A lot is d/t dilutional however she has been on Eliquis for LUE DVT since 10/11/22. She has had no overt GI bleeding but at times has complained of nausea. I will recheck her hemoglobin this afternoon and again in the a.m. and check stool for O.B. she says that her last BM was 2 days ago. I will increase her GI protection w/ protonix bid and carafate AC/HS. Professional time spent interviewing and examining patient, discussion of goals of care with hospital team (care management, nursing and consulting professionals) was 40 minutes. (2) Hypoxia: Status: Acute Assessment and plan: No clinical evidence for pneumonia (no fever, sputum production or leukocytosis although her procalcitonin is mildly elevated at 1.5 possibly from her cancer). She has atelectasis and bilateral pleural effusions. I will ask Dr. Valdivia to see her tomorrow and consider thoracentesis. (3) Anemia: Status: Chronic Assessment and plan: she was admitted w/ Hb of 11.7 gm and has steadily dropped over past 3 days. She has been mildly anemic dating back to late October. Hb is now at 8.6 gm. Some is undoubtedly d/t dilution from iv fluids. she is now positive by 4 liters. I would try to diurese her but I think she is third spacing her fluids and is mildly hypotensive w/ BP in the 90's. I have added albumin infusions and stopped her LR. If her BP and Hb remain stable, then consider one or two doses of low dose lasix now that is taking po well enough to not need iv fluids. (4) Metastatic breast cancer: Status: Acute Assessment and plan: On palliative chemo/XRT. Seen by palliative care. Code status changed to DNR/DNI. Will need follow up as outpatient. (5) Bilateral pleural effusion: Status: Acute Assessment and plan: As above. Consider thoracenthesis, I will ask for pulmonary consult on Tuesday (6) Ascites: Status: Acute Assessment and plan: No evidence of SBP. Likely related to portal hypertension and hypoalbuminemic state and possible malignant ascites given her liver and bone mets. I have added albumen trial. Consider paracenthesis. (7) Generalized weakness: Status: Acute Assessment and plan: PT Consulted (8) Deep vein thrombosis (DVT) of left upper extremity: Status: Acute Assessment and plan: Continue anticoagulation w/ apixaban with increased GI protection as noted above Qualifiers: Affected thrombotic vein of extremity: other upper extremity vein Chronicity: acute Qualified Code(s): I82.622 - Acute embolism and thrombosis of deep veins of left upper extremity (9) Discharge planning issues: Status: Acute Assessment and plan: DNR/DNI Met with palliative care. Patient is not on oxygen at home, so oxygen would be new. Subjective Subjective Interval history since last seen: Nery denies any dyspnea. Still on oxygen @ 1 lpm w/ SPO2 of 98%. I asked her whether or not she has given thoracentesis any more consideration and she says that she has not. She does have some low back pains but seems fairly comfortable at present. Duragesic patch 12.5 mcg was just started last night and she has prn Tramadol for breakthrough pain. Patient has had some post void residuals of up to 500 mL, Dr. Barbosa has ordered prn straight cath but patient has declined ceron at present. Exam Narrative Exam Narrative: Nery is alert and oriented and visiting w/ a friend at present. Able to converse w/out dyspnea Lungs: bibasilar rales Heart: RRR Abdomen: soft, slight distension but nontender, normal bowel sounds B/L leg edema 2+ Objective Last Vital Signs Temp 36.7 C 11/28/22 07:48 Pulse 81 11/28/22 07:48 Resp 16 11/28/22 07:48 BP 104/65 11/28/22 07:48 Pulse Ox 98 11/28/22 07:48 Laboratory Results - last 24 hr 11/28/22 11/28/22 11/28/22 06:22 06:22 06:22 WBC 4.73 RBC 2.50 L Hgb 8.6 L Hct 25.5 L MCV 102 H MCH 34.4 H MCHC 33.7 RDW 21.3 H Plt Count 109 L MPV 11.5 H Immature Gran % 0.6 Neutrophils % 86.2 Lymphocytes % 8.2 Monocytes % 2.5 Eosinophils % 2.1 Basophils % 0.4 Nucleated RBC % 0.0 Absolute Neutrophils 4.07 Absolute Lymphocytes 0.39 L Absolute Monocytes 0.12 Absolute Eosinophils 0.10 Absolute Basophils 0.02 RBC Morphology See Below Hypochromasia 2+ Poikilocytosis 2+ Basophilic Stippling Present Anisocytosis 2+ Sodium 141 Potassium 3.9 Chloride 107 Carbon Dioxide 26.2 Anion Gap 7.8 BUN 37 H Creatinine 1.0 Est GFR (CKD-EPI 2020) 59.49 Glucose 81 Calcium 7.8 L Total Bilirubin 5.8 H AST 184 H ALT 92 H Alkaline Phosphatase 324 H NT-Pro-B Natriuret Pep 475 H Total Protein 5.8 L Albumin 2.9 L Vitamin B12 > 2000 H Folate 14.7 Procalcitonin 1.5 Urine Color Urine Clarity Urine pH Ur Specific [place] Urine Protein Urine Ketones Urine Blood Urine Nitrite Urine Bilirubin Urine Urobilinogen Ur Leukocyte Esterase Urine RBC Urine WBC Ur Epithelial Cells Urine Crystals Urine Bacteria Urine Casts Urine Mucus Urine Other Ur Culture Indicated? Urine Glucose 11/28/22 09:40 WBC RBC Hgb Hct MCV MCH MCHC RDW Plt Count MPV Immature Gran % Neutrophils % Lymphocytes % Monocytes % Eosinophils % Basophils % Nucleated RBC % Absolute Neutrophils Absolute Lymphocytes Absolute Monocytes Absolute Eosinophils Absolute Basophils RBC Morphology Hypochromasia Poikilocytosis Basophilic Stippling Anisocytosis Sodium Potassium Chloride Carbon Dioxide Anion Gap BUN Creatinine Est GFR (CKD-EPI 2020) Glucose Calcium Total Bilirubin AST ALT Alkaline Phosphatase NT-Pro-B Natriuret Pep Total Protein Albumin Vitamin B12 Folate Procalcitonin Urine Color Lexi Urine Clarity Sl Cloudy Urine pH 5.5 Ur Specific [place] 1.015 Urine Protein Trace H Urine Ketones Negative Urine Blood Negative Urine Nitrite Negative Urine Bilirubin Small H Urine Urobilinogen >=8.0 Ur Leukocyte Esterase Negative Urine RBC 0-2 Urine WBC 3-5 Ur Epithelial Cells Moderate Urine Crystals Negative Urine Bacteria Moderate Urine Casts 3-5 Coarse Granular Urine Mucus Negative Urine Other Few Transitional Ur Culture Indicated? No/Sq. Contamination Urine Glucose Negative PAWSS Have you Been Recently Intoxicated or Drunk Within the Last 30 days?: No Have you Ever Experienced Previous Episodes of Alcohol Withdrawal?: No Have you ever Experienced Withdrawal Seizures?: No Have you ever Experienced Delirium Tremens(DT)s?: No Evidence of Increased Autonomic Activity (i.e. HR>120, tremor, sweating, agitation, nausea)?: No Result: 0 Time Spent with Patient Time Spent with Patient: 35-49 minutes Time was spent: preparing to see the patient(eg.review tests), obtaining and/or reviewing separately otained hiistory, ordering medications,tests, procedures, indepentently interpreting results, counseling the patient and care coordination
[2022-11-28] MEDS: traMADol 50 MG TAB PO (11:10)
--- NOTE | 2022-11-28 12:02 | PTTR_ITS ---
PT Notes Visit Reasons: Dehydration,Metastatic Breast Cancer Date: 11/27/2022 PRECAUTIONS: Fall, activity as tolerated SUBJECTIVE: Pt in bed when approached for therapy this morning, pt with O2 support at 1.5 and IV line, pt agreed to participate with therapy. OBJECTIVE:? PAIN: Patient denies pain ? BED MOBILITY/TRANSFERS? ? Supine to EOB: Supervision EOB to supine: min A ? Sit-stand: SBA? Stand-sit: SBA? GAIT? Assistive Device: Holding on to I.V pole for support? Weight bearing: Full Assist: SBA ? Distance: 50' x5 ? Deviation: Ledy decreased. Step height decreased. Step length decreased.? ASSESSMENT: pt gait trained withO2 support @1L NC with pt sa02 staying at 94- 95% during gait training. pt taking standing rest break every 50' to allow for SA02 reading. Plan: Continue with global strengthening and general conditioning for improved mobility and activity tolerance. TREATMENT CODE/TIME: 30 minutes [id number] (9:35-10:05am)
[2022-11-28 16:29] LABS: HCT 23.3 % (36.0-46.0); HGB 8.1 g/dL (11.2-15.7)
[2022-11-28] MEDS: Sucralfate 1 GM TAB PO ×2 (17:51→21:43)
[2022-11-28] MEDS: LORazepam 0.5 MG TAB PO (19:38)
[2022-11-28] MEDS: Prochlorperazine 10 MG TAB PO (19:38)
[2022-11-28] MEDS: Bimatoprost 0.01% 2.5 ML BTL OP (22:30)
[2022-11-29] VITALS (7 sets, daily range): BP systolic 99–118; BP diastolic 60–74; PULSE 81–114; RESP 14–23; TEMP 36.1–37.1; O2SAT 90–97
[2022-11-29] MEDS: ALBUMIN HUMAN 25 GM/100 ML BTL IV ×2 (00:05→08:57)
[2022-11-29] MEDS: Normal Saline Flush 10 ML SYR IVP ×2 (00:05→06:41)
[2022-11-29] MEDS: Dronabinol 2.5 MG CAP PO ×2 (06:29→11:49)
[2022-11-29 06:49] LABS: Abs Immature Grans 0.03 10^3/uL (0.0-0.06); Absolute Basophil Count 0.04 10^3/uL (0.0-0.2); Absolute Eosinophil Count 0.05 10^3/uL (0.0-0.7); Absolute Lymphocyte Count 0.43 10^3/uL (1.2-3.4); Absolute Monocyte Count 0.16 10^3/uL (0.1-0.8); Absolute Neutrophil Count 1.99 10^3/uL (1.2-6.7); Basophils % 1.5; Eosinophils % 1.9; HCT 24.4 % (36.0-46.0); HGB 8.4 g/dL (11.2-15.7); Immature Grans % 1.1; Lymphocytes % 15.9; MCH 34.7 pg (27.0-33.0); MCHC 34.4 % (32.0-36.0); MCV 101 fL (80-95); MPV 10.7 fL (8.0-11.0); Monocytes % 5.9; Neutrophils % 73.7; RBC 2.42 10^6/uL (3.93-5.22); RDW 21.3 % (11.7-14.6)
[2022-11-29 07:05] LABS: ALT 75 U/L (14-59); AST 161 U/L (15-37); Albumin 3.3 g/dL (3.4-5.0); Alkaline Phosphatase 266 U/L (46-116); Anion Gap 7.5 mmol/L (3-11); Anisocytosis 2+; BUN 27 mg/dL (7-18); Bilirubin, Total 5.6 mg/dL (0.2-1.0); CO2 24.5 mmol/L (21.0-32.0); CREATININE 0.7 mg/dL (0.55-1.02); Calcium 7.9 mg/dL (8.5-10.1); Chloride 108 mmol/L (98-107); Diff Comment Diff Reviewed; Estimated GFR 91.26 (mL/min/1.73m2); Glucose 74 mg/dL (74-106); Platelet Count 81 10^3/uL (130-400); Potassium 3.6 mmol/L (3.5-5.1); Sodium 140 mmol/L (136-145); Total Protein 5.6 g/dL (6.4-8.2)
[2022-11-29 07:36] LABS: Iron 88 ug/dL (50-170); Total Iron Binding Capacity 83 ug/dL (250-450); Transferrin Sat 106 % (15-50)
[2022-11-29] MEDS: Apixaban 5 MG TAB PO (07:53)
[2022-11-29] MEDS: Gabapentin 100 MG CAP PO ×2 (07:53→20:50)
[2022-11-29] MEDS: Vitamins B Comp w/C TAB 1 TAB PO (07:53)
[2022-11-29] MEDS: Sucralfate 1 GM TAB PO ×3 (07:54→16:31)
[2022-11-29] MEDS: Potassium Chloride 10 MEQ TABCR PO (07:54)
[2022-11-29] MEDS: Docusate Sodium 100 MG CAP PO ×2 (07:54→20:50)
[2022-11-29] MEDS: Multivitamin TAB 1 TAB PO (07:54)
[2022-11-29] MEDS: Pantoprazole 40 MG TABCR PO ×2 (07:54→20:50)
[2022-11-29 08:11] LABS: Ferritin > 2000 ng/mL (8-252)
--- NOTE | 2022-11-29 08:43 | W.PULMCON ---
General Date Of Service Date of service: 11/29/22 Time of Service: 08:30 Reason for Consult: Pleural effusion Assessment and Plan Assessment and plan (1) Metastatic breast cancer: Status: Acute (2) Bilateral pleural effusion: Status: Acute Assessment and plan: This is a 72 yo whom I saw for pleural effusion. The right sided effusion appears simple on ultrasound, but the larger, left effusion seems more complex. Given her breast cancer, it is possible that this may represent metastatic disease. Alternatively, this could be third spacing given her liver mets and ascites. Alternatively, she did have port placed 10/18/22 so potentially (although less likely) this could by a chylothorax. The only way to know for sure is to sample the fluid. I discussed a thoracentesis of the left effusion with the patient along with risks. She understands and has chosen to move forward with the procedure. I was bhavesh that this may not change her treatment plan moving forward in any way, but would tell us whether there has been a spread of the cancer to her pleural space. She is on Eliquis for a DVT and did take her dose this morning. The earliest I feel comfortable performing this procedure would be 12/01/22. We have her scheduled for a thoracentesis on this day at 2pm. Bilateral pleural effusions - planned for thoracentesis 12/01/22 at 2pm of left pleural effusion - will plan to send for cell diff, bacterial and fungal cultures, LDH, protein, cytopathology, pH, triglycerides - please obtain total protein and LDH on 12/01/22 - hold Eliquis starting now - no need for NPO on day of procedure History of Present Illness Narrative: This is a 72 yo with metastatic breast cancer to bone and liver who is on palliative chemo, who I was consulted on for consideration of a thoracentesis given pleural effusions. From what I can gather from records, she has never had a concern for pulmonary metastasis and based on my review on her available imaging, she has not have a prior pleural effusion. She has a CXR from 10/18/22 that shows no relevantly sized effusion. Upon admission for dehydration a CTPE found what seems to be vascular congestion as well as bilateral pleural effusions (L>R). She is on Eliquis for LUE DVT and did receive her dose this morning. She feels tired, but does not feel as though her breathing is overly under stress. Review of Systems All systems reviewed & are unremarkable except as noted in HPI and below PFSH All Active Problems (Updated 11/28/22 @ 16:08 by Gee Cesar MD) Anemia (Chronic) Goals of care, counseling/discussion (Acute) Palliative care patient (Acute) Hypoxia (Acute) Discharge planning issues (Acute) Ascites (Acute) Generalized weakness (Acute) Liver metastases (Acute) Metastatic breast cancer (Acute) Bone metastases (Acute) Bilateral pleural effusion (Acute) Hyperbilirubinemia (Acute) Liver metastases (Acute ~09/2022) [facility] 11/02/22. 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 inhibitor (Chronic) [facility] [place]C 09/29/21 note Lumbar radiculopathy (Acute ~2021) R ant thigh following L2; degenerative disease on bone scan 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 (Acute) Deep vein thrombosis (DVT) of left upper extremity (Acute ~09/2022) Medical History Abnormal bone scan of lumbar spine (~11/2019) L2; F/U study 2021 shows degenerative changes without concern for metastatic disease Abnormal radionuclide bone scan (~06/2022) L rib Chemotherapy-induced neuropathy Hands Encounter for central line placement (~05/15/19) PORT (chemo) Invasive ductal carcinoma of breast (~04/04/19) s/p R breast mastectomy [facility] Onc--05/2019 chemo, rad tx 11/20/2019 [facility] Onc _Dr Valdes 12/18/19 F/U w Dr Rae ([facility]) S/P xrt completion [facility] [place] from 08/10/21 Breast 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, Hormone receptor positive malignant neoplasm of breast Port-A-Cath in place Removed Surgical History History of appendectomy History of colonoscopy (~05/28/19) History of mastectomy R, [facility] History of tubal ligation Family History Mother , 47 yo,ovarian cancer Ovarian cancer Father , 82 yo. heart related. (didn't wake up one morning) Heart disease Alcohol abuse Coronary artery disease Brother Alcohol abuse Coronary artery disease Maternal Grandfather Alcohol abuse Coronary artery disease Son Alcohol abuse Coronary artery disease Myocardial infarction Sister Hypertension Paternal Grandmother Stroke Paternal Grandfather Stroke Other Family history of coronary artery disease Social History Smoking/Tobacco Use Status: Never Smoking risk assessment performed?: Yes Alcohol Intake: current Alcohol Intake frequency: holidays/special occasions only Drug use: Never Substance use type: does not use Adopted: No Caregiver/Support person: No Foster care: No Household members: spouse and family Housing: house Number of Children: 3 number of grandchildren: 9 Communication Needs: None Education Level: master's degree Do you need help understanding health information?: Rarely 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, [employer]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[employer] Pets and animals: Yes (2 cats and dog) Sexually active: No Do you think of yourself as: straight/heterosexual Current gender identity: female What is your relationship status?: How often do you talk on the phone with friends or family?: three or more times per week How often do you get together with friends or relatives?: three or more times per week How often do you attend scientology or sikh services?: 4 or more times per year Do you belong to any clubs or organized social groups?: yes Panel score (0-1 are the most socially isolated patients): 4 What type of physical activity do you participate in: walking Duration: 15-30 minutes/day Frequency: 1-2 times per week Nemo/Sikhism: Caodaism Special nemo needs: No Seatbelt use: always Helmet use: No Drive intox or ride w/intox 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: No Do you feel safe at home: Yes Do you feel safe in your relationship?: Yes Visit Medication and Allergies Active Medications Generic Name Dose Route Start Last Admin Trade Name Freq PRN Reason Stop Dose Admin Acetaminophen 0 mg 11/25/22 15:26 Acetaminophen 325 Mg Tab PO Q4H PRN PRN Al Hydrox/Mg Hydrox/Simethicone 30 ml 11/25/22 15:26 Mylanta Suspension 30 Ml Cup PO Q2H PRN PRN Apixaban 5 mg 11/26/22 08:30 11/29/22 07:53 Apixaban 5 Mg Tab PO 5 mg BID AN Administration Bimatoprost 0 ml 11/26/22 20:00 11/28/22 22:30 Bimatoprost 0.01% 2.5 Ml Btl OP 1 drp QPM AN Administration Bisacodyl 5 mg 11/25/22 18:10 Bisacodyl 5 Mg Tabec PO DAILY PRN PRN Dimethicone/Zinc Oxide 0 gm 11/25/22 15:26 Harvey Protect Cream 142 Gm Tube TP PRN PRN Docusate Sodium 100 mg 11/25/22 20:00 11/29/22 07:54 Docusate Sodium 100 Mg Cap PO 100 mg BID AN Administration Dronabinol 2.5 mg 11/26/22 11:00 11/29/22 06:29 Dronabinol 2.5 Mg Cap PO 2.5 mg BID@0700,1100 AN Administration Fentanyl 12 mcg 11/27/22 19:00 11/27/22 19:39 Fentanyl 12 Mcg Patch TD 12 mcg Q72H AN Administration Gabapentin 100 mg 11/26/22 08:30 11/29/22 07:53 Gabapentin 100 Mg Cap PO 100 mg BID AN Administration Sodium Chloride 500 mls @ 0 mls/hr 11/25/22 11:23 11/25/22 23:24 Saline 500ml Bag IV Infused PRN PRN Infusion As Directed IV Miscellaneous Supplies 1 each 11/25/22 11:30 Iv Access IV DIRECTED AN Lorazepam 0.5 mg 11/26/22 07:16 11/28/22 19:38 Lorazepam 0.5 Mg Tab PO 0.5 mg Q6H PRN PRN Administration Magnesium Hydroxide 30 ml 11/25/22 15:26 Milk Of Magnesia 30 Ml Cup PO DAILY PRN PRN Methocarbamol 500 - 1,000 mg 11/26/22 07:16 Methocarbamol 500 Mg Tab PO TID PRN PRN muscle spasm Multi-Ingredient Supplement 1 ounce 11/27/22 20:00 11/29/22 07:54 Protein Nutritional Supplement 16 Gm 1 Ounce Packet PO Not Given TID AN Multivitamins 1 tab 11/26/22 08:30 11/29/22 07:54 Multivitamin Tab PO 1 tab DAILY AN Administration Ondansetron HCl 4 mg 11/25/22 15:35 11/26/22 17:10 Ondansetron 4 Mg/2 Ml Vial IVP 4 mg Q6H PRN PRN Administration Ondansetron HCl 4 mg 11/26/22 07:16 Ondansetron 4 Mg Tab PO Q8H PRN PRN nausea and vomiting Pantoprazole Sodium 40 mg 11/28/22 20:00 11/29/22 07:54 Pantoprazole 40 Mg Tabcr PO 40 mg BID@0730,2000 AN Administration Polyethylene Glycol 17 gm 11/25/22 18:10 Polyethylene Glycol 3350 17 Gm Packet PO BID PRN PRN Potassium Chloride 10 meq 11/26/22 08:30 11/29/22 07:54 Potassium Chloride 10 Meq Tabcr PO 10 meq DAILY AN Administration Prochlorperazine Maleate 10 mg 11/26/22 07:16 11/28/22 19:38 Prochlorperazine 10 Mg Tab PO 10 mg Q6H PRN PRN Administration Sodium Chloride 0 ml 11/25/22 11:23 11/29/22 06:41 Normal Saline Flush 10 Ml Syr IVP 40 ml PRN PRN Administration Sucralfate 1 gm 11/28/22 16:30 11/29/22 07:54 Sucralfate 1 Gm Tab PO 1 gm AC & HS AN Administration Tramadol HCl 50 - 100 mg 11/25/22 20:51 11/28/22 11:10 Tramadol 50 Mg Tab PO 50 mg QID PRN PRN Administration PAIN Vitamin B Complex/Vitamin C 1 tab 11/26/22 08:30 11/29/22 07:53 Vitamins B Comp W/C Tab PO 1 tab DAILY AN Administration Allergies paclitaxel Allergy (Unknown, Unverified 11/25/22 12:21) Exam Narrative Exam Narrative: Left pleural effusion: Right pleural effusion: Gen: NAD, normal respiratory effort, well-nourished HENT: PERRL Chest: No respiratory distress, normal appearance of chest, clear to auscultation bilaterally, no crackles or wheezes, normal inspiratory effort Heart: regular rate and rhythym, no murmurs, rubs or gallops Abdomen: Non-distended, soft, non tender Extremities: No clubbing, + LE edema, no cyanosis, rashes Neuro: AAOx3 , non focal Psych: cooperative, appropriate mental affect Results Last Vital Signs Temp 36.6 C 11/29/22 07:26 Pulse 85 11/29/22 07:26 Resp 16 11/29/22 07:26 BP 100/61 11/29/22 07:26 Pulse Ox 97 11/29/22 07:26 Labs Result diagrams: 11/29/22 06:30 11/29/22 06:30 Labs: Laboratory Results - last 24 hr 11/28/22 11/28/22 11/28/22 09:40 15:50 15:50 WBC RBC Hgb 8.1 L Hct 23.3 L MCV MCH MCHC RDW Plt Count MPV Immature Gran % Neutrophils % Lymphocytes % Monocytes % Eosinophils % Basophils % Nucleated RBC % Absolute Neutrophils Absolute Lymphocytes Absolute Monocytes Absolute Eosinophils Absolute Basophils RBC Morphology Anisocytosis Sodium Potassium Chloride Carbon Dioxide Anion Gap BUN Creatinine Est GFR (CKD-EPI 2020) Glucose Calcium Iron TIBC Transferrin % Sat Ferritin Total Bilirubin AST ALT Alkaline Phosphatase Total Protein Albumin Urine Color Lexi Urine Clarity Sl Cloudy Urine pH 5.5 Ur Specific Vinson 1.015 Urine Protein Trace H Urine Ketones Negative Urine Blood Negative Urine Nitrite Negative Urine Bilirubin Small H Urine Urobilinogen >=8.0 Ur Leukocyte Esterase Negative Urine RBC 0-2 Urine WBC 3-5 Ur Epithelial Cells Moderate Urine Crystals Negative Urine Bacteria Moderate Urine Casts 3-5 Coarse Granular Urine Mucus Negative Urine Other Few Transitional Ur Culture Indicated? No/Sq. Contamination Urine Glucose Negative Patient ABO/Rh AB Positive Antibody Screen NEGATIVE 11/29/22 11/29/22 11/29/22 06:30 06:30 06:30 WBC RBC Hgb Hct MCV MCH MCHC RDW Plt Count MPV Immature Gran % Neutrophils % Lymphocytes % Monocytes % Eosinophils % Basophils % Nucleated RBC % Absolute Neutrophils Absolute Lymphocytes Absolute Monocytes Absolute Eosinophils Absolute Basophils RBC Morphology Anisocytosis Sodium 140 Potassium 3.6 Chloride 108 H Carbon Dioxide 24.5 Anion Gap 7.5 BUN 27 H Creatinine 0.7 Est GFR (CKD-EPI 2020) 91.26 Glucose 74 Calcium 7.9 L Iron 88 TIBC 83 L Transferrin % Sat 106 H Ferritin > 2000 H Total Bilirubin 5.6 H AST 161 H ALT 75 H Alkaline Phosphatase 266 H Total Protein 5.6 L Albumin 3.3 L Urine Color Urine Clarity Urine pH Ur Specific Vinson Urine Protein Urine Ketones Urine Blood Urine Nitrite Urine Bilirubin Urine Urobilinogen Ur Leukocyte Esterase Urine RBC Urine WBC Ur Epithelial Cells Urine Crystals Urine Bacteria Urine Casts Urine Mucus Urine Other Ur Culture Indicated? Urine Glucose Patient ABO/Rh Antibody Screen 11/29/22 06:30 WBC 2.70 L RBC 2.42 L Hgb 8.4 L Hct 24.4 L MCV 101 H MCH 34.7 H MCHC 34.4 RDW 21.3 H Plt Count 81 L MPV 10.7 Immature Gran % 1.1 Neutrophils % 73.7 Lymphocytes % 15.9 Monocytes % 5.9 Eosinophils % 1.9 Basophils % 1.5 Nucleated RBC % 0.0 Absolute Neutrophils 1.99 Absolute Lymphocytes 0.43 L Absolute Monocytes 0.16 Absolute Eosinophils 0.05 Absolute Basophils 0.04 RBC Morphology See Below Anisocytosis 2+ Sodium Potassium Chloride Carbon Dioxide Anion Gap BUN Creatinine Est GFR (CKD-EPI 2020) Glucose Calcium Iron TIBC Transferrin % Sat Ferritin Total Bilirubin AST ALT Alkaline Phosphatase Total Protein Albumin Urine Color Urine Clarity Urine pH Ur Specific Vinson Urine Protein Urine Ketones Urine Blood Urine Nitrite Urine Bilirubin Urine Urobilinogen Ur Leukocyte Esterase Urine RBC Urine WBC Ur Epithelial Cells Urine Crystals Urine Bacteria Urine Casts Urine Mucus Urine Other Ur Culture Indicated? Urine Glucose Patient ABO/Rh Antibody Screen Imaging Chest x-ray: report reviewed and image reviewed CT scan - chest: report reviewed and image reviewed
--- NOTE | 2022-11-29 11:58 | DI.US_ITS ---
APPROVED REPORT EXAM: Comprehensive 2D, Doppler, and color-flow Echocardiogram Patient Location: In-Patient Room/Bed: 225 Rn Progressive Care Unit: [facility] RD[facility] (AE) Indications: Pleural effusion, Evaluate LV and RV function Other Information Study Quality: Fair. Technically limited study due to body habitus, inability to position patient exa m done supine bedside. Conclusion Technically difficult and suboptimal study Left ventricle appears grossly normal in size and systolic function. Ejection fraction is 55 to 60%. Segmental wall motion abnormalities could not be excluded Right ventricle was not well visualized Both atria are normal in size There is no structural or hemodynamically significant valvular disease Trivial pericardial effusion Wall motion Left Ventricle The left ventricle is normal size. The left ventricular systolic function is normal. The left ventric ular ejection fraction is within the normal range. There is normal left ventricular wall thickness. T here is normal LV segmental wall motion. There is no ventricular septal defect visualized. LVEF is 58 %. Right Ventricle Right ventricle is not well visualized. Right ventricular systolic function is grossly normal. The RV SP is 37.3mmHg. Atria The left atrium size is normal. The right atrium size is normal. The interatrial septum is intact wit h no evidence for an atrial septal defect. Aortic Valve The aortic valve is normal in structure. There is no aortic valvular stenosis. No aortic regurgitatio n is present. Mitral Valve The mitral valve is normal in structure. No evidence of mitral valve stenosis. Mild mitral regurgitat ion. Tricuspid Valve The tricuspid valve is normal in structure. There is no tricuspid valve stenosis. Mild tricuspid regu rgitation. Pulmonic Valve The pulmonary valve is normal in structure. There is no pulmonic valvular stenosis. There is no pulmo saira valvular regurgitation. Great Vessels The aortic root is normal in size. Ascending aorta is not well visualized. Aortic arch is normal in c aliber. The IVC collapses <50% with inspiration. Pericardium Trace pericardial effusion. 2D Dimensions IVSD d PLAX 0.94 cm F: 0.6-1.0 LV Vol A2C d MOD 76.3 mL LVPW d PLAX 0.93 cm F: 0.6 - 1.0 LV Vol A4C d MOD 86.4 mL LVID d PLAX 4.33 cm F: 3.8 - 5.2 LV EF A4C MOD 57.4 % LVDs 3.00 cm F: 2.2 - 3.5 LV EF A2C MOD 57.6 % Ao Root d 2.90 cm F: 2.7 - 3.3 LV EF Biplane MOD 55.0 % LV EF Teichholz 58.3 % SV 44.34 mL LVEF (Gardner's) 55.02 % F: 54 - 74 SV Index 24.33 mL/m2 LV Volume 62.40 mL F: 46 - 106 LV Volume Index 34.28 mL/m2 F: 29 - 61 LV Vol Biplane MOD 80.6 mL FS 30.55 % M-Mode TAPSE 1.83 cm (M/F) >1.7 LV Diastology MV E' medial 0.104 (>0.07 m/s) E/A Ratio 1.2 LV E/e MED 7.20 (<14) MV E Vmax 0.75 (0.4-1.3 m/s) MV E' lateral 0.106 (>0.1 m/s) MV A Vmax 0.65 (0.4-1.3 m/s) LV E/e LAT 7.00 (<14) MV E/A Ratio 1.15 MV E/E' medial 7.22 MV E/E' lateral 7.05 Aortic Valve LVOT Area 2.86 cm2 AoV Area Vmax 2.29 cm2 LVOT Vmax 1.05 m/s AoV Area/ BSA (Vmax) 1.26 cm2/m2 LVOT Mean Jose. 0.65 m/s REVA Mean Jose. 2.01 cm2 LVOT Peak Grad 4.4 mmHg REVA Mean Jose. Index 1.10 cm2/m2 LVOT Mean Grad 2.1 mmHg LVOT VTI 0.227 m LVOT Diam s 1.90 cm AoV Vmax 1.31 m/s Velocity Ratio 0.80 AoV Mean Jose. 0.93 m/s AoV Peak Grad 6.9 mmHg LVOT SV 64.87 mL AoV Mean Grad 3.8 mmHg AoV VTI 0.263 m AoV Area VTI 2.47 cm2 AoV Area/ BSA (VTI) 1.35 cm/m2 Mitral Valve MV DT 203 (160-240 msec) MV PHT 59 msec MV Area PHT 3.74 cm2 MV VTI 0.226 m MV Area VTI 2.87 (4.0-6.0 cm2) Pulmonary Valve PV Vmax 0.94 (0.5-1.5 m/s) RVOT Peak Gr. 1.53 mmHg PV Peak Grad 3.5 mmHg RVOT Mean Gr. 0.80 mmHg PV Mean Grad 2.1 mmHg RVOT VTI 0.142 m PV VTI 0.199 m RVOT Vmax 0.62 m/s Tricuspid Valve TR Peak Grad 29.3 mmHg TR Vmax 2.71 m/s RA Pressure 8.00 mmHg RVSP (TR) 37.3 mmHg
--- NOTE | 2022-11-29 13:59 | PGE_ITS ---
Date of Service Date of service: 11/29/22 Time of Service: 13:59 Assessment and Plan Assessment and plan (1) Hypoxia: Status: Acute Assessment and plan: No clinical evidence for pneumonia (no fever, sputum production or leukocytosis although her procalcitonin is mildly elevated at 1.5 possibly from her cancer). She has atelectasis and bilateral pleural effusions. Dr. Valdivia plans for left sided thoracentesis on 12/01. Patient not on oxygen at present and her SPO2 is 93 to 96% on RA Professional time spent interviewing and examining patient, discussion of goals of care with hospital team (care management, nursing and consulting professionals) was 40 minutes. (2) Anemia: Status: Chronic Assessment and plan: Hb stable over 24 hr at 8.4 gm but is 3 gm lower than on admission. Partly d/t dilution. I think she needs slight diuresis as she appears to be in anasarca. Iron studies c/w anemia of chronic disease (i.e. high iron, high ferrtin, low TIBC, and high transferrin % saturation). Patient is on GI protection. Apixaban held for her thoracentesis. Will monitor her blood counts. (3) Metastatic breast cancer: Status: Acute Assessment and plan: On palliative chemo/XRT. Seen by palliative care. Code status changed to DNR/DNI. Await tomorrow telephone consultation w/ Dr. Cobos regarding prognosis, further treatement vs entering into hospice (4) Bone metastases: Status: Acute Assessment and plan: patient now on low dose duragesic patch 12.5 mcg and prn Tramadol. She is using Tramadol about once per day. I will keep the Duragesic patch dose the same for now as her pain seems reasonably controlled. (5) Bilateral pleural effusion: Status: Acute Assessment and plan: patient agreeble to thoracentesis, Dr. Valdivia will perform on Tuesday (6) Ascites: Status: Acute Assessment and plan: cont. albumin and trial of diuresis, if not successful then consider paracentesis but I would only perform if this will make her comfortable (7) Generalized weakness: Status: Acute Assessment and plan: PT Consulted (8) Deep vein thrombosis (DVT) of left upper extremity: Status: Acute Assessment and plan: apixaban on hold for paracentesis Qualifiers: Affected thrombotic vein of extremity: other upper extremity vein Chronicity: acute Qualified Code(s): I82.622 - Acute embolism and thrombosis of deep veins of left upper extremity (9) Discharge planning issues: Status: Acute Assessment and plan: DNR/DNI Met with palliative care. Patient is not on oxygen at home, so oxygen would be new. Subjective Subjective Interval history since last seen: Patient states that her pain is reasonably controlled since going on the fentanyl patch. she has only had to use the Tramadol twice over past 24hr. She still gets dyspneic w/ any activity but not dyspneic at rest. I asked her about whether she has considered hospice and she says that no she has not considered that option yet. Her daughter, Ally, told me that the family would just like her to be comfortable and for her to be at home. Ally has been working to get a hospital bed at home for her mother. She has set up a telephone visit w/ her oncologist, Dr. Cobos for tomorrow to occur here in the hospital so he can explain to Nery her prognosis and what her options are. Nery states that she has not had a BM since admission. However, it appears that she had a small smear 3 days ago. She is on docusate scheduled but her miralax is prn and she has not been given any. I will give her Relistor and miralax and dulcolax now and put her on daily Miralax and senna. If she does not have a BM then I will have nursing give her an enema. Nery met w/ Dr. Valdivia who reviewed her CT chest findings and is agreeable to performing left sided thoracentesis for diagnostic and therapeutic purposes. Nery is agreeable to this. This will be done Wed. Patient's Eliquis has to be held for 2 days prior to reduce risk for bleeding complications. Exam Narrative Exam Narrative: Nery appears tired. She is sitting up in her chair, she is awake and interactive w/ me but she does not seem very animated and seems content to just sit quietly and not say much. She denies any current pain and denies dyspnea at presetn Lungs: bilaterally dimininshed breath sounds at the bases w/ resonance w/ percussion over bases, L>R w/ egophony. No wheezing or rhonchi Heart: RRR Abdomen: soft, nontender, slight distension w/ active bowel sounds; postive ascites Legs: 3+ edema Objective Last Vital Signs Temp 36.1 C L 11/29/22 12:41 Pulse 82 11/29/22 12:41 Resp 18 11/29/22 12:41 BP 99/60 L 11/29/22 12:41 Pulse Ox 93 11/29/22 12:41 Laboratory Results - last 24 hr 11/28/22 11/28/22 11/29/22 15:50 15:50 06:30 WBC RBC Hgb 8.1 L Hct 23.3 L MCV MCH MCHC RDW Plt Count MPV Immature Gran % Neutrophils % Lymphocytes % Monocytes % Eosinophils % Basophils % Nucleated RBC % Absolute Neutrophils Absolute Lymphocytes Absolute Monocytes Absolute Eosinophils Absolute Basophils RBC Morphology Anisocytosis Sodium Potassium Chloride Carbon Dioxide Anion Gap BUN Creatinine Est GFR (CKD-EPI 2020) Glucose Calcium Iron 88 TIBC 83 L Transferrin % Sat 106 H Ferritin Total Bilirubin AST ALT Alkaline Phosphatase Total Protein Albumin Patient ABO/Rh AB Positive Antibody Screen NEGATIVE 11/29/22 11/29/22 11/29/22 06:30 06:30 06:30 WBC 2.70 L RBC 2.42 L Hgb 8.4 L Hct 24.4 L MCV 101 H MCH 34.7 H MCHC 34.4 RDW 21.3 H Plt Count 81 L MPV 10.7 Immature Gran % 1.1 Neutrophils % 73.7 Lymphocytes % 15.9 Monocytes % 5.9 Eosinophils % 1.9 Basophils % 1.5 Nucleated RBC % 0.0 Absolute Neutrophils 1.99 Absolute Lymphocytes 0.43 L Absolute Monocytes 0.16 Absolute Eosinophils 0.05 Absolute Basophils 0.04 RBC Morphology See Below Anisocytosis 2+ Sodium 140 Potassium 3.6 Chloride 108 H Carbon Dioxide 24.5 Anion Gap 7.5 BUN 27 H Creatinine 0.7 Est GFR (CKD-EPI 2020) 91.26 Glucose 74 Calcium 7.9 L Iron TIBC Transferrin % Sat Ferritin > 2000 H Total Bilirubin 5.6 H AST 161 H ALT 75 H Alkaline Phosphatase 266 H Total Protein 5.6 L Albumin 3.3 L Patient ABO/Rh Antibody Screen PAWSS Have you Been Recently Intoxicated or Drunk Within the Last 30 days?: No Have you Ever Experienced Previous Episodes of Alcohol Withdrawal?: No Have you ever Experienced Withdrawal Seizures?: No Have you ever Experienced Delirium Tremens(DT)s?: No Evidence of Increased Autonomic Activity (i.e. HR>120, tremor, sweating, agitation, nausea)?: No Result: 0 Time Spent with Patient Time Spent with Patient: 35-49 minutes Time was spent: preparing to see the patient(eg.review tests), ordering medications,tests, procedures, referring, communicating with other health occasional caregiver, indepentently interpreting results, counseling the patient and care coordination
[2022-11-29] MEDS: Polyethylene Glycol 3350 17 GM PACKET PO (14:27)
[2022-11-29] MEDS: Senna TAB 1 TAB PO (14:27)
--- NOTE | 2022-11-29 14:36 | CMPROGNOTE_ITS ---
- If Service Date Differs Date of service: 11/29/22 Time of Service: 14:36 Care Management Progress Note S/O: Nery is sitting in her chair, talking on her phone when CM met with her. She is awake and able to engage in conversation. Nery has an appointment with oncology via phone, tomorrow. Her daughter Quita is going to assist with the phone call. Dr. Valdivia is planning on doing a Thoracetesis on Tuesday. In addition, Quita is in the process of getting a hospital bed for home. An ticipate, Nery will discharge home when ready per MD, with [facility] services and close Palliative follow up. A: 72 year old female admitted to [facility] on 11/25/22 for Dehydration, Metastatic Breast Cancer P: Nery is being closely monitored and treated. Anticipate, Nery will discharge home when ready per MD, with [facility] services and Palliative follow up. Transportation will be dependant on mobility at time of discharge, via private vehicle vs. EMS. CM to continue to provide support and assess for discharge needs and services.
[2022-11-29] MEDS: Furosemide 20 MG/2 ML VIAL IVP (14:52)
--- NOTE | 2022-11-29 15:25 | PT.INTREAT ---
Date of service: 11/29/22 Time of Service: 08:30 PT Notes Visit Reasons: Dehydration,Metastatic Breast Cancer Inpatient Physical Therapy Treatment Note [facility] Date: 11/29/2022 PRECAUTIONS: Activity as tolerated SUBJECTIVE: Stephenie is pleasant and agreeable to participating in PT. She does not offer much for conversation at this time. OBJECTIVE: PAIN: No c/o pain BED MOBILITY/TRANSFERS Stand-sit: I Sit-stand: I GAIT Assistive Device: FWW Weight bearing: Full Assist: SBA Distance: 200' Deviation: Slow pacing, fatigue VITALS: SaO2: 89-92% on RA with gait training TOILETING: Patient toileted independently ASSESSMENT: Patient tolerated session well, although she demonstrates slow pacing and fatigue with gait training. PLAN: Gait training without assistive device, if appropriate, for continued progression toward baseline level of function. TREATMENT CODE/TIME: Session 1: 17 minutes; [id number] (08:30) Session 2: Patient not available x2
[2022-11-29] MEDS: Ondansetron 4 MG/2 ML VIAL IVP (16:42)
--- NOTE | 2022-11-29 17:39 | PHA.REVIEW2 ---
Pharmacy Admission Review - Admission Clinical Review (Last Reviewed 11/27/22 @ 13:38 by Bety Connors NP) Goals of care, counseling/discussion (Acute) Palliative care patient (Acute) Hypoxia (Acute) Discharge planning issues (Acute) Ascites (Acute) Generalized weakness (Acute) Liver metastases (Acute) Metastatic breast cancer (Acute) Bone metastases (Acute) Bilateral pleural effusion (Acute) Deep vein thrombosis (DVT) of left upper extremity (Acute ~09/2022) paclitaxel Allergy (Unknown, Unverified 11/25/22 12:21) Resuscitation Status DNR/DNI Height 5 ft Weight 85.91 kg - Renal Dosing Renal Dosing: BUN 27 mg/dL (7-18) H 11/29/22 06:30 Creatinine 0.7 mg/dL (0.55-1.02) 11/29/22 06:30 Medications needing adjustments: Reviewed List of meds needing interventions: eCrCl 48 ml/min, current orders ok - Anticoagulation Anticoagulation: Hgb 8.4 g/dL (11.2-15.7) L 11/29/22 06:30 Hct 24.4 % (36.0-46.0) L 11/29/22 06:30 Plt Count 81 10^3/uL (130-400) L 11/29/22 06:30 Creatinine 0.7 mg/dL (0.55-1.02) 11/29/22 06:30 Therapeutic Anticoagulation: Reviewed Medications: Apixaban - Opiate Usage Evaluate Pain Scale/Pains Meds: Reviewed (fentanyl 12mcg/hr patch + tramadol prn) Scheduled Bowel Reg ordered if on Opiates?: Yes - Relevant Labs Sodium 140 mmol/L (136-145) 11/29/22 06:30 Potassium 3.6 mmol/L (3.5-5.1) 11/29/22 06:30 Chloride 108 mmol/L (98-107) H 11/29/22 06:30 Magnesium 2.4 mg/dL (1.8-2.4) 11/27/22 05:26 Electrolytes, C-Reactive P, ESR: Reviewed - DM Control DM Control: Glucose 74 mg/dL (74-106) 11/29/22 06:30 DM Control: N/A - Cardiac Review Cardiac Review: Troponin I < 50 ng/L (<or=60) 11/25/22 12:18 NT-Pro-B Natriuret Pep 475 pg/mL (<300) H 11/28/22 06:22 BP, HR, EF%: Reviewed - Qtc Review QTc: N/A - IV to PO Switch IV Medications: Reviewed - Home Meds Home Med List reviewed: Reviewed Relevent Home Meds Not ordered & why?: not ordered: irbesartan+hctz (BPs have been normal/low) - Current meds Current Medication Order Review: Reviewed (eliquis is on hold in anticipation of thoracentesis on 12/01)
[2022-11-29] MEDS: Protein Nutritional Supplement 16 GM 1 OUNCE PACKET PO (20:50)
[2022-11-29] MEDS: Bimatoprost 0.01% 2.5 ML BTL OP (20:57)
[2022-11-30 02:24] VITALS: BP 118/72; PULSE 95; RESP 18; TEMP 37.8; O2SAT 92
[2022-11-30] MEDS: Acetaminophen 325 MG TAB PO (02:33)
[2022-11-30] MEDS: Dronabinol 2.5 MG CAP PO ×2 (06:19→10:43)
[2022-11-30 07:15] LABS: HCT 25.3 % (36.0-46.0); HGB 8.8 g/dL (11.2-15.7); MCH 34.5 pg (27.0-33.0); MCHC 34.8 % (32.0-36.0); MCV 99 fL (80-95); MPV 11.6 fL (8.0-11.0); RBC 2.55 10^6/uL (3.93-5.22); RDW 21.2 % (11.7-14.6); RDW-SD 75.1 fL
[2022-11-30 07:21] LABS: Anion Gap 8.5 mmol/L (3-11); BUN 23 mg/dL (7-18); CO2 26.5 mmol/L (21.0-32.0); CREATININE 0.8 mg/dL (0.55-1.02); Calcium 7.9 mg/dL (8.5-10.1); Chloride 107 mmol/L (98-107); Estimated GFR 77.75 (mL/min/1.73m2); Glucose 75 mg/dL (74-106); Potassium 3.4 mmol/L (3.5-5.1); Sodium 142 mmol/L (136-145)
[2022-11-30 07:30] VITALS: BP 118/75; PULSE 81; RESP 16; TEMP 36.5; O2SAT 92
[2022-11-30 07:37] LABS: Absolute Lymphocyte Count 0.59 10^3/uL (1.2-3.4); Absolute Neutrophil Count 1.12 10^3/uL (1.2-6.7); Atypical Lymphocytes % 9; Bands % 0; Platelet Count 78 10^3/uL (130-400)
[2022-11-30 07:38] LABS: Absolute Monocyte Count 0.19 10^3/uL (0.1-0.8); Anisocytosis 1+; Diff Comment Manual Differential
--- NOTE | 2022-11-30 07:40 | W.PULMPROG ---
Assessment and Plan Assessment and plan (1) Metastatic breast cancer: Status: Acute (2) Bilateral pleural effusion: Status: Acute Assessment and plan: This is a 72 yo whom I saw for pleural effusion. The right sided effusion appears simple on ultrasound, but the larger, left effusion seems more complex. Given her breast cancer, it is possible that this may represent metastatic disease. Alternatively, this could be third spacing given her liver mets and ascites. Alternatively, she did have port placed 10/18/22 so potentially (although less likely) this could by a chylothorax. The only way to know for sure is to sample the fluid. I discussed a thoracentesis of the left effusion with the patient along with risks. She understands and has chosen to move forward with the procedure. I was bhavesh that this may not change her treatment plan moving forward in any way, but would tell us whether there has been a spread of the cancer to her pleural space. Bilateral pleural effusions - planned for thoracentesis 12/01/22 at 2pm of left pleural effusion - will plan to send for cell diff, bacterial and fungal cultures, LDH, protein, cytopathology, pH, triglycerides - please obtain total protein and LDH on 12/01/22 - holding Eliquis for procedure - no need for NPO on day of procedure General Date Of Service Date of service: 11/30/22 Time of Service: 07:40 Reason for Consult: Pleural effusion Subjective Note Note: Nery says she is feeling better today than previously. No pain. Exam Narrative Exam Narrative: Gen:?NAD, normal respiratory effort, well-nourished HENT:?PERRL Chest:?No respiratory distress, normal appearance of chest, clear to auscultation bilaterally, no crackles or wheezes, normal inspiratory effort Heart:?regular rate and rhythym, no murmurs, rubs or gallops Abdomen:?Non-distended, soft, non tender Extremities:?No clubbing, + LE edema, no cyanosis, rashes Neuro:?AAOx3 , non focal Psych:?cooperative, appropriate mental affect Objective Last Vital Signs Temp 36.5 C 11/30/22 07:30 Pulse 81 11/30/22 07:30 Resp 16 11/30/22 07:30 BP 118/75 11/30/22 07:30 Pulse Ox 92 11/30/22 07:30 Laboratory Results - last 24 hr 11/29/22 11/30/22 11/30/22 06:30 06:30 06:30 WBC 1.90 L* RBC 2.55 L Hgb 8.8 L Hct 25.3 L MCV 99 H MCH 34.5 H MCHC 34.8 RDW 21.2 H Plt Count 78 L MPV 11.6 H Immature Gran % 0.0 Neutrophils % 59.0 Band Neutrophils % 0 Lymphocytes % 22.0 Atypical Lymphs % 9 Monocytes % 10.0 Eosinophils % 0.0 Basophils % 0.0 Nucleated RBC % 0.0 Absolute Neutrophils 1.12 L Absolute Lymphocytes 0.59 L Absolute Monocytes 0.19 Absolute Eosinophils 0.00 Absolute Basophils 0.00 RBC Morphology See Below Anisocytosis 1+ Sodium 142 Potassium 3.4 L Chloride 107 Carbon Dioxide 26.5 Anion Gap 8.5 BUN 23 H Creatinine 0.8 Est GFR (CKD-EPI 2020) 77.75 Glucose 75 Calcium 7.9 L Ferritin > 2000 H Results Medications Medications: Active Medications Generic Name Dose Route Start Last Admin Trade Name Freq PRN Reason Stop Dose Admin Acetaminophen 0 mg 11/25/22 15:26 11/30/22 02:33 Acetaminophen 325 Mg Tab PO 650 mg Q4H PRN PRN Administration Al Hydrox/Mg Hydrox/Simethicone 30 ml 11/25/22 15:26 Mylanta Suspension 30 Ml Cup PO Q2H PRN PRN Apixaban 5 mg 11/26/22 08:30 11/29/22 07:53 Apixaban 5 Mg Tab PO 5 mg BID AN Administration Bimatoprost 0 ml 11/26/22 20:00 11/29/22 20:57 Bimatoprost 0.01% 2.5 Ml Btl OP 1 drp QPM AN Administration Bisacodyl 5 mg 11/25/22 18:10 Bisacodyl 5 Mg Tabec PO DAILY PRN PRN Bisacodyl 10 mg 11/29/22 14:09 Bisacodyl 10 Mg Supp RI DAILY PRN PRN Dimethicone/Zinc Oxide 0 gm 11/25/22 15:26 Harvey Protect Cream 142 Gm Tube TP PRN PRN Docusate Sodium 100 mg 11/25/22 20:00 11/29/22 20:50 Docusate Sodium 100 Mg Cap PO 100 mg BID AN Administration Dronabinol 2.5 mg 11/26/22 11:00 11/30/22 06:19 Dronabinol 2.5 Mg Cap PO 2.5 mg BID@0700,1100 AN Administration Fentanyl 12 mcg 11/27/22 19:00 11/27/22 19:39 Fentanyl 12 Mcg Patch TD 12 mcg Q72H AN Administration Gabapentin 100 mg 11/26/22 08:30 11/29/22 20:50 Gabapentin 100 Mg Cap PO 100 mg BID AN Administration Sodium Chloride 500 mls @ 0 mls/hr 11/25/22 11:23 11/25/22 23:24 Saline 500ml Bag IV Infused PRN PRN Infusion As Directed IV Miscellaneous Supplies 1 each 11/25/22 11:30 Iv Access IV DIRECTED [facility] Lorazepam 0.5 mg 11/26/22 07:16 11/28/22 19:38 Lorazepam 0.5 Mg Tab PO 0.5 mg Q6H PRN PRN Administration Magnesium Hydroxide 30 ml 11/25/22 15:26 Milk Of Magnesia 30 Ml Cup PO DAILY PRN PRN Methocarbamol 500 - 1,000 mg 11/26/22 07:16 Methocarbamol 500 Mg Tab PO TID PRN PRN muscle spasm Multi-Ingredient Supplement 1 ounce 11/27/22 20:00 11/29/22 20:50 Protein Nutritional Supplement 16 Gm 1 Ounce Packet PO 1 ounce TID [facility] Administration Multivitamins 1 tab 11/26/22 08:30 11/29/22 07:54 Multivitamin Tab PO 1 tab DAILY AN Administration Ondansetron HCl 4 mg 11/25/22 15:35 11/29/22 16:42 Ondansetron 4 Mg/2 Ml Vial IVP 4 mg Q6H PRN PRN Administration Ondansetron HCl 4 mg 11/26/22 07:16 Ondansetron 4 Mg Tab PO Q8H PRN PRN nausea and vomiting Pantoprazole Sodium 40 mg 11/28/22 20:00 11/29/22 20:50 Pantoprazole 40 Mg Tabcr PO 40 mg BID@0730,2000 AN Administration Polyethylene Glycol 17 gm 11/30/22 08:30 Polyethylene Glycol 3350 17 Gm Packet PO DAILY AN Potassium Chloride 10 meq 11/26/22 08:30 11/29/22 07:54 Potassium Chloride 10 Meq Tabcr PO 10 meq DAILY AN Administration Potassium Chloride 20 meq 11/30/22 08:30 Potassium Chloride 10 Meq Capcr PO 11/30/22 20:01 TID AN Prochlorperazine Maleate 10 mg 11/26/22 07:16 11/28/22 19:38 Prochlorperazine 10 Mg Tab PO 10 mg Q6H PRN PRN Administration Sennosides 1 tab 11/29/22 22:00 11/29/22 21:14 Senna Tab PO Not Given HS AN Sodium Chloride 0 ml 11/25/22 11:23 11/29/22 06:41 Normal Saline Flush 10 Ml Syr IVP 40 ml PRN PRN Administration Sucralfate 1 gm 11/28/22 16:30 11/29/22 21:14 Sucralfate 1 Gm Tab PO Not Given AC & HS AN Tramadol HCl 50 - 100 mg 11/25/22 20:51 11/28/22 11:10 Tramadol 50 Mg Tab PO 50 mg QID PRN PRN Administration PAIN Vitamin B Complex/Vitamin C 1 tab 11/26/22 08:30 11/29/22 07:53 Vitamins B Comp W/C Tab PO 1 tab DAILY AN Administration Allergies paclitaxel Allergy (Unknown, Unverified 11/25/22 12:21) Labs Result Diagrams: 11/30/22 06:30 11/30/22 06:30 Labs: 11/25/22 18:39 Blood Blood Culture - Preliminary NO GROWTH 96 HOURS 11/25/22 18:39 Blood Blood Culture - Preliminary NO GROWTH 96 HOURS Laboratory Tests Range/Units 11/25/22 11/25/22 11/25/22 11:22 11:22 11:22 WBC Cancelled RBC Cancelled Hgb Cancelled Hct Cancelled MCV Cancelled MCH Cancelled MCHC Cancelled RDW Cancelled Plt Count Cancelled MPV Cancelled Immature Gran % Cancelled Neutrophils % Cancelled Band Neutrophils % Cancelled Lymphocytes % Cancelled Atypical Lymphs % Cancelled Monocytes % Cancelled Eosinophils % Cancelled Basophils % Cancelled Metamyelocytes % Cancelled Myelocytes % Cancelled Promyelocytes % Cancelled Other Cells % Cancelled Nucleated RBC % Cancelled Absolute Neutrophils Cancelled Absolute Lymphocytes Cancelled Absolute Monocytes Cancelled Absolute Eosinophils Cancelled Absolute Basophils Cancelled RBC Morphology Cancelled Polychromasia Cancelled Hypochromasia Cancelled Poikilocytosis Cancelled Basophilic Stippling Cancelled Anisocytosis Cancelled Microcytosis Cancelled Macrocytosis Cancelled Spherocytes Cancelled Tear Drop Cells Cancelled Ovalocytes Cancelled Stomatocytes Cancelled [place] Bodies Cancelled [place] Cells/Echinocytes Cancelled Acanthocytes (Spur) Cancelled Schistocytes Cancelled Sodium Cancelled Potassium Cancelled Chloride Cancelled Carbon Dioxide Cancelled Anion Gap Cancelled BUN Cancelled Creatinine Cancelled Est GFR (CKD-EPI 2020) Cancelled Glucose Cancelled Calcium Cancelled Magnesium Cancelled Iron (50-170) ug/dL TIBC (250-450) ug/dL Transferrin % Sat (15-50) % Ferritin (8-252) ng/mL Total Bilirubin Cancelled Conjugated Bilirubin (0.0-0.2) mg/dL AST Cancelled ALT Cancelled Alkaline Phosphatase Cancelled Troponin I Cancelled NT-Pro-B Natriuret Pep (<300) pg/mL Total Protein Cancelled Albumin Cancelled Lipase (73-393) U/L Vitamin B12 (193-986) pg/mL Folate (8.6-20.0) ng/mL Procalcitonin ng/mL Urine Color (Yellow) Urine Clarity (Clear) Urine pH (5-8) Ur Specific [place] (1.005-1.025) Urine Protein (Negative) mg/dL Urine Ketones (Negative) mg/dL Urine Blood (Negative) Urine Nitrite (Negative) Urine Bilirubin (Negative) Urine Urobilinogen (Up TO 0.2) EU/dL Ur Leukocyte Esterase (Negative) Urine RBC (0-2) HPF Urine WBC (0-5) HPF Ur Epithelial Cells (Negative) HPF Urine Crystals (Negative) HPF Urine Bacteria (Negative) HPF Urine Casts (Negative) LPF Urine Mucus (Negative) Urine Other (Negative) Ur Culture Indicated? Urine Glucose (Negative) mg/dL COVID-19 Source Cancelled SARS-CoV-2 (PCR) Cancelled Influenza Type A (PCR) Cancelled Influenza Type B (PCR) Cancelled RSV (PCR) Cancelled Patient ABO/Rh Antibody Screen Range/Units 11/25/22 11/25/22 11/25/22 12:18 12:18 12:18 WBC 8.95 RBC 3.36 L Hgb 11.7 Hct 34.0 L MCV 101 H MCH 34.8 H MCHC 34.4 RDW 21.5 H Plt Count 144 MPV 11.2 H Immature Gran % 0.4 Neutrophils % 94.5 Band Neutrophils % Lymphocytes % 2.6 Atypical Lymphs % Monocytes % 2.0 Eosinophils % 0.3 Basophils % 0.2 Metamyelocytes % Myelocytes % Promyelocytes % Other Cells % Nucleated RBC % 0.0 Absolute Neutrophils 8.45 H Absolute Lymphocytes 0.23 L Absolute Monocytes 0.18 Absolute Eosinophils 0.03 Absolute Basophils 0.02 RBC Morphology See Below Polychromasia Hypochromasia Poikilocytosis Basophilic Stippling Anisocytosis 2+ Microcytosis Macrocytosis Spherocytes Tear Drop Cells Ovalocytes Stomatocytes [place] Bodies Daniel Cells/Echinocytes Acanthocytes (Spur) Schistocytes Sodium 140 Potassium 4.2 Chloride 107 Carbon Dioxide 24.5 Anion Gap 8.5 BUN 38 H Creatinine 1.0 Est GFR (CKD-EPI 2020) 59.49 Glucose 106 Calcium 8.3 L Magnesium 2.4 Iron (50-170) ug/dL TIBC (250-450) ug/dL Transferrin % Sat (15-50) % Ferritin (8-252) ng/mL Total Bilirubin 6.2 H Conjugated Bilirubin (0.0-0.2) mg/dL AST 311 H ALT 128 H Alkaline Phosphatase 465 H Troponin I < 50 NT-Pro-B Natriuret Pep (<300) pg/mL Total Protein 6.0 L Albumin 2.1 L Lipase (73-393) U/L 94 Vitamin B12 (193-986) pg/mL Folate (8.6-20.0) ng/mL Procalcitonin ng/mL Urine Color (Yellow) Urine Clarity (Clear) Urine pH (5-8) Ur Specific [place] (1.005-1.025) Urine Protein (Negative) mg/dL Urine Ketones (Negative) mg/dL Urine Blood (Negative) Urine Nitrite (Negative) Urine Bilirubin (Negative) Urine Urobilinogen (Up TO 0.2) EU/dL Ur Leukocyte Esterase (Negative) Urine RBC (0-2) HPF Urine WBC (0-5) HPF Ur Epithelial Cells (Negative) HPF Urine Crystals (Negative) HPF Urine Bacteria (Negative) HPF Urine Casts (Negative) LPF Urine Mucus (Negative) Urine Other (Negative) Ur Culture Indicated? Urine Glucose (Negative) mg/dL COVID-19 Source SARS-CoV-2 (PCR) Influenza Type A (PCR) Influenza Type B (PCR) RSV (PCR) Patient ABO/Rh Antibody Screen Range/Units 11/25/22 11/25/22 11/26/22 12:28 14:40 06:40 WBC RBC Hgb Hct MCV MCH MCHC RDW Plt Count MPV Immature Gran % Neutrophils % Band Neutrophils % Lymphocytes % Atypical Lymphs % Monocytes % Eosinophils % Basophils % Metamyelocytes % Myelocytes % Promyelocytes % Other Cells % Nucleated RBC % Absolute Neutrophils Absolute Lymphocytes Absolute Monocytes Absolute Eosinophils Absolute Basophils RBC Morphology Polychromasia Hypochromasia Poikilocytosis Basophilic Stippling Anisocytosis Microcytosis Macrocytosis Spherocytes Tear Drop Cells Ovalocytes Stomatocytes [place] Bodies [place] Cells/Echinocytes Acanthocytes (Spur) Schistocytes Sodium 138 Potassium 4.1 Chloride 107 Carbon Dioxide 25.0 Anion Gap 6.0 BUN 36 H Creatinine 1.0 Est GFR (CKD-EPI 2020) 59.49 Glucose 100 Calcium 7.6 L Magnesium 2.3 Iron (50-170) ug/dL TIBC (250-450) ug/dL Transferrin % Sat (15-50) % Ferritin (8-252) ng/mL Total Bilirubin 6.1 H Conjugated Bilirubin (0.0-0.2) mg/dL 4.8 H AST 294 H ALT 126 H Alkaline Phosphatase 402 H Troponin I NT-Pro-B Natriuret Pep (<300) pg/mL Total Protein 5.4 L Albumin 1.9 L Lipase (73-393) U/L Vitamin B12 (193-986) pg/mL Folate (8.6-20.0) ng/mL Procalcitonin ng/mL Urine Color (Yellow) Yellow Urine Clarity (Clear) Clear Urine pH (5-8) 5.5 Ur Specific [place] (1.005-1.025) <= 1.005 Urine Protein (Negative) mg/dL Trace H Urine Ketones (Negative) mg/dL 15 H Urine Blood (Negative) Trace-intact H Urine Nitrite (Negative) Negative Urine Bilirubin (Negative) Small H Urine Urobilinogen (Up TO 0.2) EU/dL 2.0 H Ur Leukocyte Esterase (Negative) Negative Urine RBC (0-2) HPF 0-2 Urine WBC (0-5) HPF 0-2 Ur Epithelial Cells (Negative) HPF Few Urine Crystals (Negative) HPF Negative Urine Bacteria (Negative) HPF Negative Urine Casts (Negative) LPF Negative Urine Mucus (Negative) Trace Urine Other (Negative) Ur Culture Indicated? No Urine Glucose (Negative) mg/dL Negative COVID-19 Source Nasopharynx SARS-CoV-2 (PCR) Negative Influenza Type A (PCR) Negative Influenza Type B (PCR) Negative RSV (PCR) Negative Patient ABO/Rh Antibody Screen Range/Units 11/26/22 11/27/22 11/28/22 06:40 05:26 06:22 WBC 9.72 RBC 2.96 L Hgb 10.4 L Hct 30.3 L MCV 102 H MCH 35.1 H MCHC 34.3 RDW 21.5 H Plt Count 129 L MPV 11.1 H Immature Gran % 0.6 Neutrophils % 93.8 Band Neutrophils % Lymphocytes % 2.8 Atypical Lymphs % Monocytes % 2.4 Eosinophils % 0.2 Basophils % 0.2 Metamyelocytes % Myelocytes % Promyelocytes % Other Cells % Nucleated RBC % 0.0 Absolute Neutrophils 9.12 H Absolute Lymphocytes 0.27 L Absolute Monocytes 0.23 Absolute Eosinophils 0.02 Absolute Basophils 0.02 RBC Morphology See Below Polychromasia Hypochromasia Poikilocytosis Basophilic Stippling Anisocytosis 2+ Microcytosis Macrocytosis Spherocytes Tear Drop Cells Ovalocytes Stomatocytes [place] Bodies Daniel Cells/Echinocytes Acanthocytes (Spur) Schistocytes Sodium 139 141 Potassium 4.5 3.9 Chloride 107 107 Carbon Dioxide 25.7 26.2 Anion Gap 6.3 7.8 BUN 43 H 37 H Creatinine 1.1 H 1.0 Est GFR (CKD-EPI 2020) 53.06 59.49 Glucose 79 81 Calcium 7.7 L 7.8 L Magnesium 2.4 Iron (50-170) ug/dL TIBC (250-450) ug/dL Transferrin % Sat (15-50) % Ferritin (8-252) ng/mL Total Bilirubin 5.8 H Conjugated Bilirubin (0.0-0.2) mg/dL AST 184 H ALT 92 H Alkaline Phosphatase 324 H Troponin I NT-Pro-B Natriuret Pep (<300) pg/mL 475 H Total Protein 5.8 L Albumin 2.9 L Lipase (73-393) U/L Vitamin B12 (193-986) pg/mL > 2000 H Folate (8.6-20.0) ng/mL 14.7 Procalcitonin ng/mL Urine Color (Yellow) Urine Clarity (Clear) Urine pH (5-8) Ur Specific [place] (1.005-1.025) Urine Protein (Negative) mg/dL Urine Ketones (Negative) mg/dL Urine Blood (Negative) Urine Nitrite (Negative) Urine Bilirubin (Negative) Urine Urobilinogen (Up TO 0.2) EU/dL Ur Leukocyte Esterase (Negative) Urine RBC (0-2) HPF Urine WBC (0-5) HPF Ur Epithelial Cells (Negative) HPF Urine Crystals (Negative) HPF Urine Bacteria (Negative) HPF Urine Casts (Negative) LPF Urine Mucus (Negative) Urine Other (Negative) Ur Culture Indicated? Urine Glucose (Negative) mg/dL COVID-19 Source SARS-CoV-2 (PCR) Influenza Type A (PCR) Influenza Type B (PCR) RSV (PCR) Patient ABO/Rh Antibody Screen Range/Units 11/28/22 11/28/22 11/28/22 06:22 06:22 09:40 WBC 4.73 RBC 2.50 L Hgb 8.6 L Hct 25.5 L MCV 102 H MCH 34.4 H MCHC 33.7 RDW 21.3 H Plt Count 109 L MPV 11.5 H Immature Gran % 0.6 Neutrophils % 86.2 Band Neutrophils % Lymphocytes % 8.2 Atypical Lymphs % Monocytes % 2.5 Eosinophils % 2.1 Basophils % 0.4 Metamyelocytes % Myelocytes % Promyelocytes % Other Cells % Nucleated RBC % 0.0 Absolute Neutrophils 4.07 Absolute Lymphocytes 0.39 L Absolute Monocytes 0.12 Absolute Eosinophils 0.10 Absolute Basophils 0.02 RBC Morphology See Below Polychromasia Hypochromasia 2+ Poikilocytosis 2+ Basophilic Stippling Present Anisocytosis 2+ Microcytosis Macrocytosis Spherocytes Tear Drop Cells Ovalocytes Stomatocytes [place] Bodies [place] Cells/Echinocytes Acanthocytes (Spur) Schistocytes Sodium Potassium Chloride Carbon Dioxide Anion Gap BUN Creatinine Est GFR (CKD-EPI 2020) Glucose Calcium Magnesium Iron (50-170) ug/dL TIBC (250-450) ug/dL Transferrin % Sat (15-50) % Ferritin (8-252) ng/mL Total Bilirubin Conjugated Bilirubin (0.0-0.2) mg/dL AST ALT Alkaline Phosphatase Troponin I NT-Pro-B Natriuret Pep (<300) pg/mL Total Protein Albumin Lipase (73-393) U/L Vitamin B12 (193-986) pg/mL Folate (8.6-20.0) ng/mL Procalcitonin ng/mL 1.5 Urine Color (Yellow) Lexi Urine Clarity (Clear) Sl Cloudy Urine pH (5-8) 5.5 Ur Specific [place] (1.005-1.025) 1.015 Urine Protein (Negative) mg/dL Trace H Urine Ketones (Negative) mg/dL Negative Urine Blood (Negative) Negative Urine Nitrite (Negative) Negative Urine Bilirubin (Negative) Small H Urine Urobilinogen (Up TO 0.2) EU/dL >=8.0 Ur Leukocyte Esterase (Negative) Negative Urine RBC (0-2) HPF 0-2 Urine WBC (0-5) HPF 3-5 Ur Epithelial Cells (Negative) HPF Moderate Urine Crystals (Negative) HPF Negative Urine Bacteria (Negative) HPF Moderate Urine Casts (Negative) LPF 3-5 Coarse Granular Urine Mucus (Negative) Negative Urine Other (Negative) Few Transitional Ur Culture Indicated? No/Sq. Contamination Urine Glucose (Negative) mg/dL Negative COVID-19 Source SARS-CoV-2 (PCR) Influenza Type A (PCR) Influenza Type B (PCR) RSV (PCR) Patient ABO/Rh Antibody Screen Range/Units 11/28/22 11/28/22 11/29/22 15:50 15:50 06:30 WBC RBC Hgb 8.1 L Hct 23.3 L MCV MCH MCHC RDW Plt Count MPV Immature Gran % Neutrophils % Band Neutrophils % Lymphocytes % Atypical Lymphs % Monocytes % Eosinophils % Basophils % Metamyelocytes % Myelocytes % Promyelocytes % Other Cells % Nucleated RBC % Absolute Neutrophils Absolute Lymphocytes Absolute Monocytes Absolute Eosinophils Absolute Basophils RBC Morphology Polychromasia Hypochromasia Poikilocytosis Basophilic Stippling Anisocytosis Microcytosis Macrocytosis Spherocytes Tear Drop Cells Ovalocytes Stomatocytes [place] Bodies [place] Cells/Echinocytes Acanthocytes (Spur) Schistocytes Sodium Potassium Chloride Carbon Dioxide Anion Gap BUN Creatinine Est GFR (CKD-EPI 2020) Glucose Calcium Magnesium Iron (50-170) ug/dL 88 TIBC (250-450) ug/dL 83 L Transferrin % Sat (15-50) % 106 H Ferritin (8-252) ng/mL Total Bilirubin Conjugated Bilirubin (0.0-0.2) mg/dL AST ALT Alkaline Phosphatase Troponin I NT-Pro-B Natriuret Pep (<300) pg/mL Total Protein Albumin Lipase (73-393) U/L Vitamin B12 (193-986) pg/mL Folate (8.6-20.0) ng/mL Procalcitonin ng/mL Urine Color (Yellow) Urine Clarity (Clear) Urine pH (5-8) Ur Specific [place] (1.005-1.025) Urine Protein (Negative) mg/dL Urine Ketones (Negative) mg/dL Urine Blood (Negative) Urine Nitrite (Negative) Urine Bilirubin (Negative) Urine Urobilinogen (Up TO 0.2) EU/dL Ur Leukocyte Esterase (Negative) Urine RBC (0-2) HPF Urine WBC (0-5) HPF Ur Epithelial Cells (Negative) HPF Urine Crystals (Negative) HPF Urine Bacteria (Negative) HPF Urine Casts (Negative) LPF Urine Mucus (Negative) Urine Other (Negative) Ur Culture Indicated? Urine Glucose (Negative) mg/dL COVID-19 Source SARS-CoV-2 (PCR) Influenza Type A (PCR) Influenza Type B (PCR) RSV (PCR) Patient ABO/Rh AB Positive Antibody Screen NEGATIVE Range/Units 11/29/22 11/29/22 11/29/22 06:30 06:30 06:30 WBC 2.70 L RBC 2.42 L Hgb 8.4 L Hct 24.4 L MCV 101 H MCH 34.7 H MCHC 34.4 RDW 21.3 H Plt Count 81 L MPV 10.7 Immature Gran % 1.1 Neutrophils % 73.7 Band Neutrophils % Lymphocytes % 15.9 Atypical Lymphs % Monocytes % 5.9 Eosinophils % 1.9 Basophils % 1.5 Metamyelocytes % Myelocytes % Promyelocytes % Other Cells % Nucleated RBC % 0.0 Absolute Neutrophils 1.99 Absolute Lymphocytes 0.43 L Absolute Monocytes 0.16 Absolute Eosinophils 0.05 Absolute Basophils 0.04 RBC Morphology See Below Polychromasia Hypochromasia Poikilocytosis Basophilic Stippling Anisocytosis 2+ Microcytosis Macrocytosis Spherocytes Tear Drop Cells Ovalocytes Stomatocytes [place] Bodies Daniel Cells/Echinocytes Acanthocytes (Spur) Schistocytes Sodium 140 Potassium 3.6 Chloride 108 H Carbon Dioxide 24.5 Anion Gap 7.5 BUN 27 H Creatinine 0.7 Est GFR (CKD-EPI 2020) 91.26 Glucose 74 Calcium 7.9 L Magnesium Iron (50-170) ug/dL TIBC (250-450) ug/dL Transferrin % Sat (15-50) % Ferritin (8-252) ng/mL > 2000 H Total Bilirubin 5.6 H Conjugated Bilirubin (0.0-0.2) mg/dL AST 161 H ALT 75 H Alkaline Phosphatase 266 H Troponin I NT-Pro-B Natriuret Pep (<300) pg/mL Total Protein 5.6 L Albumin 3.3 L Lipase (73-393) U/L Vitamin B12 (193-986) pg/mL Folate (8.6-20.0) ng/mL Procalcitonin ng/mL Urine Color (Yellow) Urine Clarity (Clear) Urine pH (5-8) Ur Specific [place] (1.005-1.025) Urine Protein (Negative) mg/dL Urine Ketones (Negative) mg/dL Urine Blood (Negative) Urine Nitrite (Negative) Urine Bilirubin (Negative) Urine Urobilinogen (Up TO 0.2) EU/dL Ur Leukocyte Esterase (Negative) Urine RBC (0-2) HPF Urine WBC (0-5) HPF Ur Epithelial Cells (Negative) HPF Urine Crystals (Negative) HPF Urine Bacteria (Negative) HPF Urine Casts (Negative) LPF Urine Mucus (Negative) Urine Other (Negative) Ur Culture Indicated? Urine Glucose (Negative) mg/dL COVID-19 Source SARS-CoV-2 (PCR) Influenza Type A (PCR) Influenza Type B (PCR) RSV (PCR) Patient ABO/Rh Antibody Screen Range/Units 11/30/22 11/30/22 06:30 06:30 WBC 1.90 L* RBC 2.55 L Hgb 8.8 L Hct 25.3 L MCV 99 H MCH 34.5 H MCHC 34.8 RDW 21.2 H Plt Count 78 L MPV 11.6 H Immature Gran % 0.0 Neutrophils % 59.0 Band Neutrophils % 0 Lymphocytes % 22.0 Atypical Lymphs % 9 Monocytes % 10.0 Eosinophils % 0.0 Basophils % 0.0 Metamyelocytes % Myelocytes % Promyelocytes % Other Cells % Nucleated RBC % 0.0 Absolute Neutrophils 1.12 L Absolute Lymphocytes 0.59 L Absolute Monocytes 0.19 Absolute Eosinophils 0.00 Absolute Basophils 0.00 RBC Morphology See Below Polychromasia Hypochromasia Poikilocytosis Basophilic Stippling Anisocytosis 1+ Microcytosis Macrocytosis Spherocytes Tear Drop Cells Ovalocytes Stomatocytes [place] Bodies [place] Cells/Echinocytes Acanthocytes (Spur) Schistocytes Sodium 142 Potassium 3.4 L Chloride 107 Carbon Dioxide 26.5 Anion Gap 8.5 BUN 23 H Creatinine 0.8 Est GFR (CKD-EPI 2020) 77.75 Glucose 75 Calcium 7.9 L Magnesium Iron (50-170) ug/dL TIBC (250-450) ug/dL Transferrin % Sat (15-50) % Ferritin (8-252) ng/mL Total Bilirubin Conjugated Bilirubin (0.0-0.2) mg/dL AST ALT Alkaline Phosphatase Troponin I NT-Pro-B Natriuret Pep (<300) pg/mL Total Protein Albumin Lipase (73-393) U/L Vitamin B12 (193-986) pg/mL Folate (8.6-20.0) ng/mL Procalcitonin ng/mL Urine Color (Yellow) Urine Clarity (Clear) Urine pH (5-8) Ur Specific [place] (1.005-1.025) Urine Protein (Negative) mg/dL Urine Ketones (Negative) mg/dL Urine Blood (Negative) Urine Nitrite (Negative) Urine Bilirubin (Negative) Urine Urobilinogen (Up TO 0.2) EU/dL Ur Leukocyte Esterase (Negative) Urine RBC (0-2) HPF Urine WBC (0-5) HPF Ur Epithelial Cells (Negative) HPF Urine Crystals (Negative) HPF Urine Bacteria (Negative) HPF Urine Casts (Negative) LPF Urine Mucus (Negative) Urine Other (Negative) Ur Culture Indicated? Urine Glucose (Negative) mg/dL COVID-19 Source SARS-CoV-2 (PCR) Influenza Type A (PCR) Influenza Type B (PCR) RSV (PCR) Patient ABO/Rh Antibody Screen
--- NOTE | 2022-11-30 08:17 | CMPROGNOTE_ITS ---
- If Service Date Differs Date of service: 11/30/22 Time of Service: 08:17 Care Management Progress Note S/O: Nery was sitting up in her chair talking on the phone with her daughter Quita, when CM met with her. Per Quita, Nery's appointment with [facility] that was scheduled for today via phone is cancelled. A Thorcentesis is still planned for tomorrow and pts next chemo treatment is tentatively planned for Tuesday. Nery agrees to this plan. CM will follow. A: 72 year old female admitted to [facility] on 11/25/22 for Dehydration, Metastatic Breast Cancer P: Nery is being closely monitored and treated. Anticipate, Nery will discharge home when ready per MD, with New [facility] services and Palliative follow up. Transportation will be dependant on mobility at time of discharge, via private vehicle vs. EMS. CM to continue to provide support and assess for discharge needs and services.
[2022-11-30] MEDS: Vitamins B Comp w/C TAB 1 TAB PO (09:14)
[2022-11-30] MEDS: Gabapentin 100 MG CAP PO ×2 (09:14→20:26)
[2022-11-30] MEDS: Docusate Sodium 100 MG CAP PO ×2 (09:14→20:26)
[2022-11-30] MEDS: Polyethylene Glycol 3350 17 GM PACKET PO (09:14)
[2022-11-30] MEDS: Pantoprazole 40 MG TABCR PO ×2 (09:14→20:26)
[2022-11-30] MEDS: Potassium Chloride 10 MEQ CAPCR 20 MEQ PO ×3 (09:15→20:27)
[2022-11-30] MEDS: Potassium Chloride 10 MEQ TABCR PO (09:15)
[2022-11-30] MEDS: Multivitamin TAB 1 TAB PO (09:15)
[2022-11-30] MEDS: Sucralfate 1 GM TAB PO ×4 (09:15→22:57)
--- NOTE | 2022-11-30 10:49 | CHAPLAIN ---
Nery was up in the chair visiting with her when stopped in. She said she has gradually felt a bit better each day she's been here, about 4 days. Tomorrow, Dr. Valdivia will perform a thoracentesis at the bedside. 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 She has had a palliative care consult and will be discharged home with home health and PC following her, according to Care Managment notes.
[2022-11-30 11:23] VITALS: BP 107/70; PULSE 93; RESP 16; TEMP 36.5; O2SAT 91
--- NOTE | 2022-11-30 12:18 | PT.INTREAT ---
Date of service: 11/30/22 Time of Service: 11:38 PT Notes Visit Reasons: Dehydration,Metastatic Breast Cancer Inpatient Physical Therapy Treatment Note [facility] Date: 11/30/2022 PRECAUTIONS: Activity as tolerated SUBJECTIVE: Nery is pleasant and agreeable to participating in PT. She reports that she is feeling somewhat better today. She states that she wants to continue to use the FWW even at home, she feels better with it. OBJECTIVE: PAIN: No c/o pain BED MOBILITY/TRANSFERS Stand-sit: I Sit-stand: I GAIT Assistive Device: FWW Weight bearing: Full Assist: SBA Distance: 250' Deviation: Slow pacing, fatigue STAIRS: Up/down 3x4 and 2x6 using B rails and a step-to pattern with supervision ASSESSMENT: Patient tolerated session well, although she demonstrates slow pacing and increasing fatigue with gait training. PLAN: Continue with general strengthening for continued progression toward baseline level of function. TREATMENT CODE/TIME: 15 minutes; 76339 (11:38)
--- NOTE | 2022-11-30 13:00 | W.PM.PROGNOT ---
Date of Service Date of service: 11/30/22 Time of Service: 13:00 Assessment and Plan Assessment and plan (1) Hypoxia: Status: Acute Assessment and plan: Secondary to combination of bilateral pleural effusions, pulmonary atelectasis, fluid overload. Not currently hypoxemic at rest. We will give some more IV diuretics today and patient will undergo left-sided thoracentesis tomorrow by Dr. Sharif with plans for cell cell count, cytology, fungal and bacterial cultures. I will check ambulatory pulse oximetry prior to discharge but after her thoracentesis to see if she need home oxygen. Professional time spent interviewing and examining patient, discussion of goals of care with hospital team (care management, nursing and consulting professionals) was 20 minutes. (2) Anemia: Status: Chronic Assessment and plan: Combination of delusional superimposed on anemia of chronic disease from her cancer. (3) Metastatic breast cancer: Status: Acute Assessment and plan: On palliative chemo/XRT. Seen by palliative care. Code status changed to DNR/DNI. Telephone consultation with Dr. Cobos was not held today as a daughter indicated that their office indicated that he could not perform telephone consult while the patient is currently an inpatient. (4) Bone metastases: Status: Acute Assessment and plan: patient now on low dose duragesic patch 12.5 mcg and prn Tramadol. She is using Tramadol about once per day. I will keep the Duragesic patch dose the same for now as her pain seems reasonably controlled. (5) Bilateral pleural effusion: Status: Acute Assessment and plan: patient agreeble to thoracentesis, Dr. Valdivia will perform left-sided thoracentesis on Tuesday (6) Ascites: Status: Acute Assessment and plan: cont. albumin and trial of diuresis, if not successful then consider paracentesis but I would only perform if this will make her comfortable (7) Generalized weakness: Status: Acute Assessment and plan: PT Consulted (8) Deep vein thrombosis (DVT) of left upper extremity: Status: Acute Assessment and plan: apixaban on hold for paracentesis Qualifiers: Affected thrombotic vein of extremity: other upper extremity vein Chronicity: acute Qualified Code(s): I82.622 - Acute embolism and thrombosis of deep veins of left upper extremity (9) Discharge planning issues: Status: Acute Assessment and plan: DNR/DNI Met with palliative care. Patient is not on oxygen at home, so oxygen would be new. Subjective Subjective Interval history since last seen: Nery feels better today. Her pain is well controlled. Still gets mildly dyspneic with any physical activity but at rest she is not dyspneic and not requiring any supplemental oxygen. She was visiting with her cousin when I came into the room this afternoon. Exam Narrative Exam Narrative: Nery is alert and oriented person place time circumstance seems pleasant and conversant today Lungs are clear anteriorly posteriorly she has bibasilar rales and diminished breath sounds particularly at the left lung base no rhonchi or wheezes Heart is regular rate and rhythm Abdomen soft nontender normal bowel sounds palpable fluid wave consistent with ascites Lower extremities 3+ edema of her legs and feet Objective Last Vital Signs Temp 36.5 C 11/30/22 11:23 Pulse 93 H 11/30/22 11:23 Resp 16 11/30/22 11:23 BP 107/70 11/30/22 11:23 Pulse Ox 91 L 11/30/22 11:23 Laboratory Results - last 24 hr 11/30/22 11/30/22 06:30 06:30 WBC 1.90 L* RBC 2.55 L Hgb 8.8 L Hct 25.3 L MCV 99 H MCH 34.5 H MCHC 34.8 RDW 21.2 H Plt Count 78 L MPV 11.6 H Immature Gran % 0.0 Neutrophils % 59.0 Band Neutrophils % 0 Lymphocytes % 22.0 Atypical Lymphs % 9 Monocytes % 10.0 Eosinophils % 0.0 Basophils % 0.0 Nucleated RBC % 0.0 Absolute Neutrophils 1.12 L Absolute Lymphocytes 0.59 L Absolute Monocytes 0.19 Absolute Eosinophils 0.00 Absolute Basophils 0.00 RBC Morphology See Below Anisocytosis 1+ Sodium 142 Potassium 3.4 L Chloride 107 Carbon Dioxide 26.5 Anion Gap 8.5 BUN 23 H Creatinine 0.8 Est GFR (CKD-EPI 2020) 77.75 Glucose 75 Calcium 7.9 L PAWSS Have you Been Recently Intoxicated or Drunk Within the Last 30 days?: No Have you Ever Experienced Previous Episodes of Alcohol Withdrawal?: No Have you ever Experienced Withdrawal Seizures?: No Have you ever Experienced Delirium Tremens(DT)s?: No Evidence of Increased Autonomic Activity (i.e. HR>120, tremor, sweating, agitation, nausea)?: No Result: 0 Time Spent with Patient Time Spent with Patient: <25 minutes Time was spent: preparing to see the patient(eg.review tests), ordering medications,tests, procedures, referring, communicating with other health health care marketing specialist, indepentently interpreting results and care coordination
[2022-11-30 15:37] VITALS: BP 109/68; PULSE 89; RESP 16; TEMP 36.5; O2SAT 93
[2022-11-30] MEDS: Furosemide 20 MG/2 ML VIAL IVP (15:50)
[2022-11-30] MEDS: Normal Saline Flush 10 ML SYR IVP (15:51)
[2022-11-30] MEDS: fentaNYL 12 MCG PATCH TD (18:18)
--- NOTE | 2022-11-30 18:32 | NUR.NOTE ---
Nursing Note: Fentanyl patch was changed to left outer upper arm tonight. patient has experienced relief with the patch thus far
[2022-11-30 19:30] VITALS: BP 115/61; PULSE 84; RESP 16; TEMP 36.8; O2SAT 92
[2022-11-30] MEDS: Bimatoprost 0.01% 2.5 ML BTL OP (20:28)
[2022-11-30] MEDS: Senna TAB 1 TAB PO (22:57)
[2022-11-30 23:26] VITALS: BP 110/65; PULSE 85; RESP 16; TEMP 36.9; O2SAT 96
[2022-12-01 02:42] VITALS: BP 129/83; PULSE 98; RESP 19; TEMP 37; O2SAT 92
[2022-12-01 07:13] LABS: Anion Gap 2.8 mmol/L (3-11); BUN 18 mg/dL (7-18); CO2 26.2 mmol/L (21.0-32.0); CREATININE 0.8 mg/dL (0.55-1.02); Calcium 8.1 mg/dL (8.5-10.1); Chloride 108 mmol/L (98-107); Estimated GFR 77.75 (mL/min/1.73m2); Glucose 75 mg/dL (74-106); LDH 659 U/L (81-234); Potassium 3.6 mmol/L (3.5-5.1); Sodium 137 mmol/L (136-145); Total Protein 5.4 g/dL (6.4-8.2)
--- NOTE | 2022-12-01 07:31 | W.PULMPROG ---
Assessment and Plan Assessment and plan (1) Metastatic breast cancer: Status: Acute (2) Bilateral pleural effusion: Status: Acute Assessment and plan: This is a 72 yo whom I saw for pleural effusion. The right sided effusion appears simple on ultrasound, but the larger, left effusion seems more complex. Given her breast cancer, it is possible that this may represent metastatic disease. Alternatively, this could be third spacing given her liver mets and ascites. Alternatively, she did have port placed 10/18/22 so potentially (although less likely) this could by a chylothorax. The only way to know for sure is to sample the fluid. I discussed a thoracentesis of the left effusion with the patient along with risks. She understands and has chosen to move forward with the procedure, for which consent was signed today. I was bhavesh that this may not change her treatment plan moving forward in any way, but would tell us whether there has been a spread of the cancer to her pleural space. Bilateral pleural effusions - planned for thoracentesis today at 2pm of left pleural effusion - will plan to send for cell diff, bacterial and fungal cultures, LDH, protein, cytopathology, pH, triglycerides - total protein and LDH measured today - holding Eliquis for procedure - no need for NPO today General Date Of Service Date of service: 12/01/22 Time of Service: 07:31 Reason for Consult: Pleural effusion Subjective Note Note: Nery is feeling slightly more short of breath today. Otherwise she is doing well. Good appetite. Exam Narrative Exam Narrative: Gen:?NAD, normal respiratory effort, well-nourished HENT:?PERRL Chest:?No respiratory distress, normal appearance of chest, diminished left basilar breath sounds Heart:?regular rate and rhythym, no murmurs, rubs or gallops Abdomen:?Non-distended, soft, non tender Extremities:?No clubbing, + LE edema, no cyanosis, rashes Neuro:?AAOx3 , non focal Psych:?cooperative, appropriate mental affect Objective Last Vital Signs Temp 37.0 C 12/01/22 02:42 Pulse 98 H 12/01/22 02:42 Resp 19 12/01/22 02:42 BP 129/83 12/01/22 02:42 Pulse Ox 92 12/01/22 02:42 Laboratory Results - last 24 hr 11/30/22 12/01/22 06:30 06:20 WBC 1.90 L* RBC 2.55 L Hgb 8.8 L Hct 25.3 L MCV 99 H MCH 34.5 H MCHC 34.8 RDW 21.2 H Plt Count 78 L MPV 11.6 H Immature Gran % 0.0 Neutrophils % 59.0 Band Neutrophils % 0 Lymphocytes % 22.0 Atypical Lymphs % 9 Monocytes % 10.0 Eosinophils % 0.0 Basophils % 0.0 Nucleated RBC % 0.0 Absolute Neutrophils 1.12 L Absolute Lymphocytes 0.59 L Absolute Monocytes 0.19 Absolute Eosinophils 0.00 Absolute Basophils 0.00 RBC Morphology See Below Anisocytosis 1+ Sodium 137 Potassium 3.6 Chloride 108 H Carbon Dioxide 26.2 Anion Gap 2.8 L BUN 18 Creatinine 0.8 Est GFR (CKD-EPI 2020) 77.75 Glucose 75 Calcium 8.1 L Lactate Dehydrogenase 659 H Total Protein 5.4 L Results Medications Medications: Active Medications Generic Name Dose Route Start Last Admin Trade Name Freq PRN Reason Stop Dose Admin Acetaminophen 0 mg 11/25/22 15:26 11/30/22 02:33 Acetaminophen 325 Mg Tab PO 650 mg Q4H PRN PRN Administration Al Hydrox/Mg Hydrox/Simethicone 30 ml 11/25/22 15:26 Mylanta Suspension 30 Ml Cup PO Q2H PRN PRN Apixaban 5 mg 11/26/22 08:30 11/29/22 07:53 Apixaban 5 Mg Tab PO 5 mg BID AN Administration Bimatoprost 0 ml 11/26/22 20:00 11/30/22 20:28 Bimatoprost 0.01% 2.5 Ml Btl OP 1 drp QPM AN Administration Bisacodyl 5 mg 11/25/22 18:10 Bisacodyl 5 Mg Tabec PO DAILY PRN PRN Bisacodyl 10 mg 11/29/22 14:09 Bisacodyl 10 Mg Supp OR DAILY PRN PRN Dimethicone/Zinc Oxide 0 gm 11/25/22 15:26 Harvey Protect Cream 142 Gm Tube TP PRN PRN Docusate Sodium 100 mg 11/25/22 20:00 11/30/22 20:26 Docusate Sodium 100 Mg Cap PO 100 mg BID AN Administration Dronabinol 2.5 mg 11/26/22 11:00 11/30/22 10:43 Dronabinol 2.5 Mg Cap PO 2.5 mg BID@0700,1100 AN Administration Fentanyl 12 mcg 11/27/22 19:00 11/30/22 18:18 Fentanyl 12 Mcg Patch TD 12 mcg Q72H AN Administration Furosemide 20 mg 11/30/22 16:00 11/30/22 15:50 Furosemide 20 Mg/2 Ml Vial IVP 12/01/22 08:01 20 mg BID@0800,1600 AN Administration Gabapentin 100 mg 11/26/22 08:30 11/30/22 20:26 Gabapentin 100 Mg Cap PO 100 mg BID AN Administration Sodium Chloride 500 mls @ 0 mls/hr 11/25/22 11:23 11/25/22 23:24 Saline 500ml Bag IV Infused PRN PRN Infusion As Directed IV Miscellaneous Supplies 1 each 11/25/22 11:30 Iv Access IV DIRECTED [facility] Lorazepam 0.5 mg 11/26/22 07:16 11/28/22 19:38 Lorazepam 0.5 Mg Tab PO 0.5 mg Q6H PRN PRN Administration Magnesium Hydroxide 30 ml 11/25/22 15:26 Milk Of Magnesia 30 Ml Cup PO DAILY PRN PRN Methocarbamol 500 - 1,000 mg 11/26/22 07:16 Methocarbamol 500 Mg Tab PO TID PRN PRN muscle spasm Multi-Ingredient Supplement 1 ounce 11/27/22 20:00 11/30/22 20:28 Protein Nutritional Supplement 16 Gm 1 Ounce Packet PO Not Given TID [facility] Multivitamins 1 tab 11/26/22 08:30 11/30/22 09:15 Multivitamin Tab PO 1 tab DAILY AN Administration Ondansetron HCl 4 mg 11/25/22 15:35 11/29/22 16:42 Ondansetron 4 Mg/2 Ml Vial IVP 4 mg Q6H PRN PRN Administration Ondansetron HCl 4 mg 11/26/22 07:16 Ondansetron 4 Mg Tab PO Q8H PRN PRN nausea and vomiting Pantoprazole Sodium 40 mg 11/28/22 20:00 11/30/22 20:26 Pantoprazole 40 Mg Tabcr PO 40 mg BID@0730,2000 AN Administration Polyethylene Glycol 17 gm 11/30/22 08:30 11/30/22 09:14 Polyethylene Glycol 3350 17 Gm Packet PO 17 gm DAILY AN Administration Potassium Chloride 20 meq 12/01/22 08:30 Potassium Chloride 10 Meq Tabcr PO DAILY AN Prochlorperazine Maleate 10 mg 11/26/22 07:16 11/28/22 19:38 Prochlorperazine 10 Mg Tab PO 10 mg Q6H PRN PRN Administration Sennosides 1 tab 11/29/22 22:00 11/30/22 22:57 Senna Tab PO 1 tab HS AN Administration Sodium Chloride 0 ml 11/25/22 11:23 11/30/22 15:51 Normal Saline Flush 10 Ml Syr IVP 10 ml PRN PRN Administration Sucralfate 1 gm 11/28/22 16:30 11/30/22 22:57 Sucralfate 1 Gm Tab PO 1 gm AC & HS AN Administration Tramadol HCl 50 - 100 mg 11/25/22 20:51 11/28/22 11:10 Tramadol 50 Mg Tab PO 50 mg QID PRN PRN Administration PAIN Vitamin B Complex/Vitamin C 1 tab 11/26/22 08:30 11/30/22 09:14 Vitamins B Comp W/C Tab PO 1 tab DAILY AN Administration Allergies paclitaxel Allergy (Unknown, Unverified 11/25/22 12:21) Labs Result Diagrams: 11/30/22 06:30 12/01/22 06:20 Labs: 11/25/22 18:39 Blood Blood Culture - Final NO GROWTH 120 HOURS 11/25/22 18:39 Blood Blood Culture - Final NO GROWTH 120 HOURS Laboratory Tests Range/Units 11/25/22 11/25/22 11/25/22 11:22 11:22 11:22 WBC Cancelled RBC Cancelled Hgb Cancelled Hct Cancelled MCV Cancelled MCH Cancelled MCHC Cancelled RDW Cancelled Plt Count Cancelled MPV Cancelled Immature Gran % Cancelled Neutrophils % Cancelled Band Neutrophils % Cancelled Lymphocytes % Cancelled Atypical Lymphs % Cancelled Monocytes % Cancelled Eosinophils % Cancelled Basophils % Cancelled Metamyelocytes % Cancelled Myelocytes % Cancelled Promyelocytes % Cancelled Other Cells % Cancelled Nucleated RBC % Cancelled Absolute Neutrophils Cancelled Absolute Lymphocytes Cancelled Absolute Monocytes Cancelled Absolute Eosinophils Cancelled Absolute Basophils Cancelled RBC Morphology Cancelled Polychromasia Cancelled Hypochromasia Cancelled Poikilocytosis Cancelled Basophilic Stippling Cancelled Anisocytosis Cancelled Microcytosis Cancelled Macrocytosis Cancelled Spherocytes Cancelled Tear Drop Cells Cancelled Ovalocytes Cancelled Stomatocytes Cancelled [place] Bodies Cancelled Daniel Cells/Echinocytes Cancelled Acanthocytes (Spur) Cancelled Schistocytes Cancelled Sodium Cancelled Potassium Cancelled Chloride Cancelled Carbon Dioxide Cancelled Anion Gap Cancelled BUN Cancelled Creatinine Cancelled Est GFR (CKD-EPI 2020) Cancelled Glucose Cancelled Calcium Cancelled Magnesium Cancelled Iron (50-170) ug/dL TIBC (250-450) ug/dL Transferrin % Sat (15-50) % Ferritin (8-252) ng/mL Total Bilirubin Cancelled Conjugated Bilirubin (0.0-0.2) mg/dL AST Cancelled ALT Cancelled Alkaline Phosphatase Cancelled Lactate Dehydrogenase (81-234) U/L Troponin I Cancelled NT-Pro-B Natriuret Pep (<300) pg/mL Total Protein Cancelled Albumin Cancelled Lipase (73-393) U/L Vitamin B12 (193-986) pg/mL Folate (8.6-20.0) ng/mL Procalcitonin ng/mL Urine Color (Yellow) Urine Clarity (Clear) Urine pH (5-8) Ur Specific [place] (1.005-1.025) Urine Protein (Negative) mg/dL Urine Ketones (Negative) mg/dL Urine Blood (Negative) Urine Nitrite (Negative) Urine Bilirubin (Negative) Urine Urobilinogen (Up TO 0.2) EU/dL Ur Leukocyte Esterase (Negative) Urine RBC (0-2) HPF Urine WBC (0-5) HPF Ur Epithelial Cells (Negative) HPF Urine Crystals (Negative) HPF Urine Bacteria (Negative) HPF Urine Casts (Negative) LPF Urine Mucus (Negative) Urine Other (Negative) Ur Culture Indicated? Urine Glucose (Negative) mg/dL COVID-19 Source Cancelled SARS-CoV-2 (PCR) Cancelled Influenza Type A (PCR) Cancelled Influenza Type B (PCR) Cancelled RSV (PCR) Cancelled Patient ABO/Rh Antibody Screen Range/Units 11/25/22 11/25/22 11/25/22 12:18 12:18 12:18 WBC 8.95 RBC 3.36 L Hgb 11.7 Hct 34.0 L MCV 101 H MCH 34.8 H MCHC 34.4 RDW 21.5 H Plt Count 144 MPV 11.2 H Immature Gran % 0.4 Neutrophils % 94.5 Band Neutrophils % Lymphocytes % 2.6 Atypical Lymphs % Monocytes % 2.0 Eosinophils % 0.3 Basophils % 0.2 Metamyelocytes % Myelocytes % Promyelocytes % Other Cells % Nucleated RBC % 0.0 Absolute Neutrophils 8.45 H Absolute Lymphocytes 0.23 L Absolute Monocytes 0.18 Absolute Eosinophils 0.03 Absolute Basophils 0.02 RBC Morphology See Below Polychromasia Hypochromasia Poikilocytosis Basophilic Stippling Anisocytosis 2+ Microcytosis Macrocytosis Spherocytes Tear Drop Cells Ovalocytes Stomatocytes [place] Bodies Daniel Cells/Echinocytes Acanthocytes (Spur) Schistocytes Sodium 140 Potassium 4.2 Chloride 107 Carbon Dioxide 24.5 Anion Gap 8.5 BUN 38 H Creatinine 1.0 Est GFR (CKD-EPI 2020) 59.49 Glucose 106 Calcium 8.3 L Magnesium 2.4 Iron (50-170) ug/dL TIBC (250-450) ug/dL Transferrin % Sat (15-50) % Ferritin (8-252) ng/mL Total Bilirubin 6.2 H Conjugated Bilirubin (0.0-0.2) mg/dL AST 311 H ALT 128 H Alkaline Phosphatase 465 H Lactate Dehydrogenase (81-234) U/L Troponin I < 50 NT-Pro-B Natriuret Pep (<300) pg/mL Total Protein 6.0 L Albumin 2.1 L Lipase (73-393) U/L 94 Vitamin B12 (193-986) pg/mL Folate (8.6-20.0) ng/mL Procalcitonin ng/mL Urine Color (Yellow) Urine Clarity (Clear) Urine pH (5-8) Ur Specific [place] (1.005-1.025) Urine Protein (Negative) mg/dL Urine Ketones (Negative) mg/dL Urine Blood (Negative) Urine Nitrite (Negative) Urine Bilirubin (Negative) Urine Urobilinogen (Up TO 0.2) EU/dL Ur Leukocyte Esterase (Negative) Urine RBC (0-2) HPF Urine WBC (0-5) HPF Ur Epithelial Cells (Negative) HPF Urine Crystals (Negative) HPF Urine Bacteria (Negative) HPF Urine Casts (Negative) LPF Urine Mucus (Negative) Urine Other (Negative) Ur Culture Indicated? Urine Glucose (Negative) mg/dL COVID-19 Source SARS-CoV-2 (PCR) Influenza Type A (PCR) Influenza Type B (PCR) RSV (PCR) Patient ABO/Rh Antibody Screen Range/Units 11/25/22 11/25/22 11/26/22 12:28 14:40 06:40 WBC RBC Hgb Hct MCV MCH MCHC RDW Plt Count MPV Immature Gran % Neutrophils % Band Neutrophils % Lymphocytes % Atypical Lymphs % Monocytes % Eosinophils % Basophils % Metamyelocytes % Myelocytes % Promyelocytes % Other Cells % Nucleated RBC % Absolute Neutrophils Absolute Lymphocytes Absolute Monocytes Absolute Eosinophils Absolute Basophils RBC Morphology Polychromasia Hypochromasia Poikilocytosis Basophilic Stippling Anisocytosis Microcytosis Macrocytosis Spherocytes Tear Drop Cells Ovalocytes Stomatocytes [place] Bodies Daniel Cells/Echinocytes Acanthocytes (Spur) Schistocytes Sodium 138 Potassium 4.1 Chloride 107 Carbon Dioxide 25.0 Anion Gap 6.0 BUN 36 H Creatinine 1.0 Est GFR (CKD-EPI 2020) 59.49 Glucose 100 Calcium 7.6 L Magnesium 2.3 Iron (50-170) ug/dL TIBC (250-450) ug/dL Transferrin % Sat (15-50) % Ferritin (8-252) ng/mL Total Bilirubin 6.1 H Conjugated Bilirubin (0.0-0.2) mg/dL 4.8 H AST 294 H ALT 126 H Alkaline Phosphatase 402 H Lactate Dehydrogenase (81-234) U/L Troponin I NT-Pro-B Natriuret Pep (<300) pg/mL Total Protein 5.4 L Albumin 1.9 L Lipase (73-393) U/L Vitamin B12 (193-986) pg/mL Folate (8.6-20.0) ng/mL Procalcitonin ng/mL Urine Color (Yellow) Yellow Urine Clarity (Clear) Clear Urine pH (5-8) 5.5 Ur Specific [place] (1.005-1.025) <= 1.005 Urine Protein (Negative) mg/dL Trace H Urine Ketones (Negative) mg/dL 15 H Urine Blood (Negative) Trace-intact H Urine Nitrite (Negative) Negative Urine Bilirubin (Negative) Small H Urine Urobilinogen (Up TO 0.2) EU/dL 2.0 H Ur Leukocyte Esterase (Negative) Negative Urine RBC (0-2) HPF 0-2 Urine WBC (0-5) HPF 0-2 Ur Epithelial Cells (Negative) HPF Few Urine Crystals (Negative) HPF Negative Urine Bacteria (Negative) HPF Negative Urine Casts (Negative) LPF Negative Urine Mucus (Negative) Trace Urine Other (Negative) Ur Culture Indicated? No Urine Glucose (Negative) mg/dL Negative COVID-19 Source Nasopharynx SARS-CoV-2 (PCR) Negative Influenza Type A (PCR) Negative Influenza Type B (PCR) Negative RSV (PCR) Negative Patient ABO/Rh Antibody Screen Range/Units 11/26/22 11/27/22 11/28/22 06:40 05:26 06:22 WBC 9.72 RBC 2.96 L Hgb 10.4 L Hct 30.3 L MCV 102 H MCH 35.1 H MCHC 34.3 RDW 21.5 H Plt Count 129 L MPV 11.1 H Immature Gran % 0.6 Neutrophils % 93.8 Band Neutrophils % Lymphocytes % 2.8 Atypical Lymphs % Monocytes % 2.4 Eosinophils % 0.2 Basophils % 0.2 Metamyelocytes % Myelocytes % Promyelocytes % Other Cells % Nucleated RBC % 0.0 Absolute Neutrophils 9.12 H Absolute Lymphocytes 0.27 L Absolute Monocytes 0.23 Absolute Eosinophils 0.02 Absolute Basophils 0.02 RBC Morphology See Below Polychromasia Hypochromasia Poikilocytosis Basophilic Stippling Anisocytosis 2+ Microcytosis Macrocytosis Spherocytes Tear Drop Cells Ovalocytes Stomatocytes [place] Bodies Mobile Cells/Echinocytes Acanthocytes (Spur) Schistocytes Sodium 139 141 Potassium 4.5 3.9 Chloride 107 107 Carbon Dioxide 25.7 26.2 Anion Gap 6.3 7.8 BUN 43 H 37 H Creatinine 1.1 H 1.0 Est GFR (CKD-EPI 2020) 53.06 59.49 Glucose 79 81 Calcium 7.7 L 7.8 L Magnesium 2.4 Iron (50-170) ug/dL TIBC (250-450) ug/dL Transferrin % Sat (15-50) % Ferritin (8-252) ng/mL Total Bilirubin 5.8 H Conjugated Bilirubin (0.0-0.2) mg/dL AST 184 H ALT 92 H Alkaline Phosphatase 324 H Lactate Dehydrogenase (81-234) U/L Troponin I NT-Pro-B Natriuret Pep (<300) pg/mL 475 H Total Protein 5.8 L Albumin 2.9 L Lipase (73-393) U/L Vitamin B12 (193-986) pg/mL > 2000 H Folate (8.6-20.0) ng/mL 14.7 Procalcitonin ng/mL Urine Color (Yellow) Urine Clarity (Clear) Urine pH (5-8) Ur Specific [place] (1.005-1.025) Urine Protein (Negative) mg/dL Urine Ketones (Negative) mg/dL Urine Blood (Negative) Urine Nitrite (Negative) Urine Bilirubin (Negative) Urine Urobilinogen (Up TO 0.2) EU/dL Ur Leukocyte Esterase (Negative) Urine RBC (0-2) HPF Urine WBC (0-5) HPF Ur Epithelial Cells (Negative) HPF Urine Crystals (Negative) HPF Urine Bacteria (Negative) HPF Urine Casts (Negative) LPF Urine Mucus (Negative) Urine Other (Negative) Ur Culture Indicated? Urine Glucose (Negative) mg/dL COVID-19 Source SARS-CoV-2 (PCR) Influenza Type A (PCR) Influenza Type B (PCR) RSV (PCR) Patient ABO/Rh Antibody Screen Range/Units 11/28/22 11/28/22 11/28/22 06:22 06:22 09:40 WBC 4.73 RBC 2.50 L Hgb 8.6 L Hct 25.5 L MCV 102 H MCH 34.4 H MCHC 33.7 RDW 21.3 H Plt Count 109 L MPV 11.5 H Immature Gran % 0.6 Neutrophils % 86.2 Band Neutrophils % Lymphocytes % 8.2 Atypical Lymphs % Monocytes % 2.5 Eosinophils % 2.1 Basophils % 0.4 Metamyelocytes % Myelocytes % Promyelocytes % Other Cells % Nucleated RBC % 0.0 Absolute Neutrophils 4.07 Absolute Lymphocytes 0.39 L Absolute Monocytes 0.12 Absolute Eosinophils 0.10 Absolute Basophils 0.02 RBC Morphology See Below Polychromasia Hypochromasia 2+ Poikilocytosis 2+ Basophilic Stippling Present Anisocytosis 2+ Microcytosis Macrocytosis Spherocytes Tear Drop Cells Ovalocytes Stomatocytes [place] Bodies Mobile Cells/Echinocytes Acanthocytes (Spur) Schistocytes Sodium Potassium Chloride Carbon Dioxide Anion Gap BUN Creatinine Est GFR (CKD-EPI 2020) Glucose Calcium Magnesium Iron (50-170) ug/dL TIBC (250-450) ug/dL Transferrin % Sat (15-50) % Ferritin (8-252) ng/mL Total Bilirubin Conjugated Bilirubin (0.0-0.2) mg/dL AST ALT Alkaline Phosphatase Lactate Dehydrogenase (81-234) U/L Troponin I NT-Pro-B Natriuret Pep (<300) pg/mL Total Protein Albumin Lipase (73-393) U/L Vitamin B12 (193-986) pg/mL Folate (8.6-20.0) ng/mL Procalcitonin ng/mL 1.5 Urine Color (Yellow) Lexi Urine Clarity (Clear) Sl Cloudy Urine pH (5-8) 5.5 Ur Specific [place] (1.005-1.025) 1.015 Urine Protein (Negative) mg/dL Trace H Urine Ketones (Negative) mg/dL Negative Urine Blood (Negative) Negative Urine Nitrite (Negative) Negative Urine Bilirubin (Negative) Small H Urine Urobilinogen (Up TO 0.2) EU/dL >=8.0 Ur Leukocyte Esterase (Negative) Negative Urine RBC (0-2) HPF 0-2 Urine WBC (0-5) HPF 3-5 Ur Epithelial Cells (Negative) HPF Moderate Urine Crystals (Negative) HPF Negative Urine Bacteria (Negative) HPF Moderate Urine Casts (Negative) LPF 3-5 Coarse Granular Urine Mucus (Negative) Negative Urine Other (Negative) Few Transitional Ur Culture Indicated? No/Sq. Contamination Urine Glucose (Negative) mg/dL Negative COVID-19 Source SARS-CoV-2 (PCR) Influenza Type A (PCR) Influenza Type B (PCR) RSV (PCR) Patient ABO/Rh Antibody Screen Range/Units 11/28/22 11/28/22 11/29/22 15:50 15:50 06:30 WBC RBC Hgb 8.1 L Hct 23.3 L MCV MCH MCHC RDW Plt Count MPV Immature Gran % Neutrophils % Band Neutrophils % Lymphocytes % Atypical Lymphs % Monocytes % Eosinophils % Basophils % Metamyelocytes % Myelocytes % Promyelocytes % Other Cells % Nucleated RBC % Absolute Neutrophils Absolute Lymphocytes Absolute Monocytes Absolute Eosinophils Absolute Basophils RBC Morphology Polychromasia Hypochromasia Poikilocytosis Basophilic Stippling Anisocytosis Microcytosis Macrocytosis Spherocytes Tear Drop Cells Ovalocytes Stomatocytes [place] Bodies Mobile Cells/Echinocytes Acanthocytes (Spur) Schistocytes Sodium Potassium Chloride Carbon Dioxide Anion Gap BUN Creatinine Est GFR (CKD-EPI 2020) Glucose Calcium Magnesium Iron (50-170) ug/dL 88 TIBC (250-450) ug/dL 83 L Transferrin % Sat (15-50) % 106 H Ferritin (8-252) ng/mL Total Bilirubin Conjugated Bilirubin (0.0-0.2) mg/dL AST ALT Alkaline Phosphatase Lactate Dehydrogenase (81-234) U/L Troponin I NT-Pro-B Natriuret Pep (<300) pg/mL Total Protein Albumin Lipase (73-393) U/L Vitamin B12 (193-986) pg/mL Folate (8.6-20.0) ng/mL Procalcitonin ng/mL Urine Color (Yellow) Urine Clarity (Clear) Urine pH (5-8) Ur Specific [place] (1.005-1.025) Urine Protein (Negative) mg/dL Urine Ketones (Negative) mg/dL Urine Blood (Negative) Urine Nitrite (Negative) Urine Bilirubin (Negative) Urine Urobilinogen (Up TO 0.2) EU/dL Ur Leukocyte Esterase (Negative) Urine RBC (0-2) HPF Urine WBC (0-5) HPF Ur Epithelial Cells (Negative) HPF Urine Crystals (Negative) HPF Urine Bacteria (Negative) HPF Urine Casts (Negative) LPF Urine Mucus (Negative) Urine Other (Negative) Ur Culture Indicated? Urine Glucose (Negative) mg/dL COVID-19 Source SARS-CoV-2 (PCR) Influenza Type A (PCR) Influenza Type B (PCR) RSV (PCR) Patient ABO/Rh AB Positive Antibody Screen NEGATIVE Range/Units 11/29/22 11/29/22 11/29/22 06:30 06:30 06:30 WBC 2.70 L RBC 2.42 L Hgb 8.4 L Hct 24.4 L MCV 101 H MCH 34.7 H MCHC 34.4 RDW 21.3 H Plt Count 81 L MPV 10.7 Immature Gran % 1.1 Neutrophils % 73.7 Band Neutrophils % Lymphocytes % 15.9 Atypical Lymphs % Monocytes % 5.9 Eosinophils % 1.9 Basophils % 1.5 Metamyelocytes % Myelocytes % Promyelocytes % Other Cells % Nucleated RBC % 0.0 Absolute Neutrophils 1.99 Absolute Lymphocytes 0.43 L Absolute Monocytes 0.16 Absolute Eosinophils 0.05 Absolute Basophils 0.04 RBC Morphology See Below Polychromasia Hypochromasia Poikilocytosis Basophilic Stippling Anisocytosis 2+ Microcytosis Macrocytosis Spherocytes Tear Drop Cells Ovalocytes Stomatocytes [place] Bodies Daniel Cells/Echinocytes Acanthocytes (Spur) Schistocytes Sodium 140 Potassium 3.6 Chloride 108 H Carbon Dioxide 24.5 Anion Gap 7.5 BUN 27 H Creatinine 0.7 Est GFR (CKD-EPI 2020) 91.26 Glucose 74 Calcium 7.9 L Magnesium Iron (50-170) ug/dL TIBC (250-450) ug/dL Transferrin % Sat (15-50) % Ferritin (8-252) ng/mL > 2000 H Total Bilirubin 5.6 H Conjugated Bilirubin (0.0-0.2) mg/dL AST 161 H ALT 75 H Alkaline Phosphatase 266 H Lactate Dehydrogenase (81-234) U/L Troponin I NT-Pro-B Natriuret Pep (<300) pg/mL Total Protein 5.6 L Albumin 3.3 L Lipase (73-393) U/L Vitamin B12 (193-986) pg/mL Folate (8.6-20.0) ng/mL Procalcitonin ng/mL Urine Color (Yellow) Urine Clarity (Clear) Urine pH (5-8) Ur Specific [place] (1.005-1.025) Urine Protein (Negative) mg/dL Urine Ketones (Negative) mg/dL Urine Blood (Negative) Urine Nitrite (Negative) Urine Bilirubin (Negative) Urine Urobilinogen (Up TO 0.2) EU/dL Ur Leukocyte Esterase (Negative) Urine RBC (0-2) HPF Urine WBC (0-5) HPF Ur Epithelial Cells (Negative) HPF Urine Crystals (Negative) HPF Urine Bacteria (Negative) HPF Urine Casts (Negative) LPF Urine Mucus (Negative) Urine Other (Negative) Ur Culture Indicated? Urine Glucose (Negative) mg/dL COVID-19 Source SARS-CoV-2 (PCR) Influenza Type A (PCR) Influenza Type B (PCR) RSV (PCR) Patient ABO/Rh Antibody Screen Range/Units 11/30/22 11/30/22 12/01/22 06:30 06:30 06:20 WBC 1.90 L* RBC 2.55 L Hgb 8.8 L Hct 25.3 L MCV 99 H MCH 34.5 H MCHC 34.8 RDW 21.2 H Plt Count 78 L MPV 11.6 H Immature Gran % 0.0 Neutrophils % 59.0 Band Neutrophils % 0 Lymphocytes % 22.0 Atypical Lymphs % 9 Monocytes % 10.0 Eosinophils % 0.0 Basophils % 0.0 Metamyelocytes % Myelocytes % Promyelocytes % Other Cells % Nucleated RBC % 0.0 Absolute Neutrophils 1.12 L Absolute Lymphocytes 0.59 L Absolute Monocytes 0.19 Absolute Eosinophils 0.00 Absolute Basophils 0.00 RBC Morphology See Below Polychromasia Hypochromasia Poikilocytosis Basophilic Stippling Anisocytosis 1+ Microcytosis Macrocytosis Spherocytes Tear Drop Cells Ovalocytes Stomatocytes [place] Bodies Daniel Cells/Echinocytes Acanthocytes (Spur) Schistocytes Sodium 142 137 Potassium 3.4 L 3.6 Chloride 107 108 H Carbon Dioxide 26.5 26.2 Anion Gap 8.5 2.8 L BUN 23 H 18 Creatinine 0.8 0.8 Est GFR (CKD-EPI 2020) 77.75 77.75 Glucose 75 75 Calcium 7.9 L 8.1 L Magnesium Iron (50-170) ug/dL TIBC (250-450) ug/dL Transferrin % Sat (15-50) % Ferritin (8-252) ng/mL Total Bilirubin Conjugated Bilirubin (0.0-0.2) mg/dL AST ALT Alkaline Phosphatase Lactate Dehydrogenase (81-234) U/L 659 H Troponin I NT-Pro-B Natriuret Pep (<300) pg/mL Total Protein 5.4 L Albumin Lipase (73-393) U/L Vitamin B12 (193-986) pg/mL Folate (8.6-20.0) ng/mL Procalcitonin ng/mL Urine Color (Yellow) Urine Clarity (Clear) Urine pH (5-8) Ur Specific [place] (1.005-1.025) Urine Protein (Negative) mg/dL Urine Ketones (Negative) mg/dL Urine Blood (Negative) Urine Nitrite (Negative) Urine Bilirubin (Negative) Urine Urobilinogen (Up TO 0.2) EU/dL Ur Leukocyte Esterase (Negative) Urine RBC (0-2) HPF Urine WBC (0-5) HPF Ur Epithelial Cells (Negative) HPF Urine Crystals (Negative) HPF Urine Bacteria (Negative) HPF Urine Casts (Negative) LPF Urine Mucus (Negative) Urine Other (Negative) Ur Culture Indicated? Urine Glucose (Negative) mg/dL COVID-19 Source SARS-CoV-2 (PCR) Influenza Type A (PCR) Influenza Type B (PCR) RSV (PCR) Patient ABO/Rh Antibody Screen
[2022-12-01 07:40] VITALS: BP 101/64; PULSE 85; RESP 16; TEMP 37; O2SAT 95
--- NOTE | 2022-12-01 07:48 | NUR.NOTE ---
Nursing Note: Accessed patient chart to determine how many EKG orders were in the chart from the ED. There was an outstanding EKG in ordered status. There are no EKG's in the [facility] system that are outstanding.
[2022-12-01] MEDS: Protein Nutritional Supplement 16 GM 1 OUNCE PACKET PO (07:58)
[2022-12-01] MEDS: Polyethylene Glycol 3350 17 GM PACKET PO (07:58)
[2022-12-01] MEDS: Potassium Chloride 10 MEQ TABCR 20 MEQ PO (07:59)
[2022-12-01] MEDS: Dronabinol 2.5 MG CAP PO ×2 (07:59→10:32)
[2022-12-01] MEDS: Multivitamin TAB 1 TAB PO (08:00)
[2022-12-01] MEDS: Pantoprazole 40 MG TABCR PO ×2 (08:00→19:41)
[2022-12-01] MEDS: Gabapentin 100 MG CAP PO ×2 (08:00→19:42)
[2022-12-01] MEDS: Vitamins B Comp w/C TAB 1 TAB PO (08:00)
[2022-12-01] MEDS: Sucralfate 1 GM TAB PO ×4 (08:00→22:02)
[2022-12-01] MEDS: Docusate Sodium 100 MG CAP PO ×2 (08:00→19:43)
[2022-12-01] MEDS: Furosemide 20 MG/2 ML VIAL IVP ×2 (08:00→14:55)
[2022-12-01] MEDS: Ondansetron 4 MG/2 ML VIAL IVP (08:04)
--- NOTE | 2022-12-01 10:11 | CMPROGNOTE_ITS ---
- If Service Date Differs Date of service: 12/01/22 Time of Service: 10:11 Care Management Progress Note S/O: Nery is sitting up in her chair when CM met with her. She is awake, alert and able to engage in conversation. Per Pt, she is planning on going down to the OR to have the thoracentesis at 2pm. Per provider, Nery will likely discharge tomorrow with new [facility] services and Palliative to follow. Her next treatment @ [facility] is tentatively scheduled for Tuesday. CM will follow. A: 72 year old female admitted to [facility] on 11/25/22 for Dehydration, Metastatic Breast Cancer P: Nery is being closely monitored and treated. Anticipate, Nery will discharge home when ready per MD, with New [facility] services with Palliative following. Transportation will be dependant on mobility at time of discharge, via private vehicle vs. EMS. CM to continue to provide support and assess for discharge needs and services.
[2022-12-01 11:35] VITALS: BP 98/60; PULSE 92; RESP 16; TEMP 36.9; O2SAT 94
--- NOTE | 2022-12-01 14:35 | PGE_ITS ---
Date of Service Date of service: 12/01/22 Time of Service: 14:36 Assessment and Plan Assessment and plan (1) Hypoxia: Status: Acute Assessment and plan: combo of atelectasis and pleural effusions, anasarc from metastatic breast CA; may be some component from her initial iv fluid resuscitation from when she presented in dehydrated state. She has been diuresing w/ iv lasix 20 mg IV bid. She may need to go home on some diuretics. Per the patient, Dr. Valdivia re- imaged her and decided not to perform the thoracentesis, telling her that there was not enough fluid to tap. Professional time spent interviewing and examining patient, discussion of goals of care with hospital team (care management, nursing and consulting professionals) was 30 minutes. (2) Anemia: Status: Chronic Assessment and plan: Combination of delusional superimposed on anemia of chronic disease from her cancer. (3) Metastatic breast cancer: Status: Acute Assessment and plan: On palliative chemo/XRT. Seen by palliative care. Code status changed to DNR/DNI. Telephone consultation with Dr. Cobos was not held yesterday as a daughter indicated that their office indicated that he could not perform telephone consult while the patient is currently an inpatient. (4) Bone metastases: Status: Acute Assessment and plan: patient now on low dose duragesic patch 12.5 mcg and prn Tramadol. she has not required any Tramadol since 11/28. I will dc her home on Fentanyl patch and recommend continued use at home. This does not seem to make her excessively sleepy. (5) Bilateral pleural effusion: Status: Acute Assessment and plan: thoracentesis cancelled (6) Ascites: Status: Acute Assessment and plan: continue diuretics. I will keep her on diuretics when she return home. (7) Generalized weakness: Status: Acute Assessment and plan: PT Consulted (8) Deep vein thrombosis (DVT) of left upper extremity: Status: Acute Assessment and plan: apixaban on hold for paracentesis Qualifiers: Affected thrombotic vein of extremity: other upper extremity vein Chronicity: acute Qualified Code(s): I82.622 - Acute embolism and thrombosis of deep veins of left upper extremity (9) Discharge planning issues: Status: Acute Assessment and plan: DNR/DNI Met with palliative care. Patient is not on oxygen at home, so oxygen would be new. Subjective Subjective Interval history since last seen: Nery feels better today she is less dyspneic. She went down to surgery for a ultrasound-guided thoracentesis of her left pleural effusion. However the procedure was not performed. Patient states that Dr. Valdivia told her there was not enough fluid to justify performing the thoracentesis. Exam Narrative Exam Narrative: Nery sitting in bed she is alert and oriented person place time circumstance n o acute respiratory distress no accessory respiratory muscle use. Neck supple no JVD Lungs are clear anteriorly in the upper damian however at the bases she has diminished breath sounds left more so than the right posteriorly upper damian are clear Heart is regular rate and rhythm Abdomen soft nontender nondistended normal active bowel sounds she does have a positive fluid wave consistent with ascites Legs with 3+ edema of her tibia feet and ankles Objective Last Vital Signs Temp 36.9 C 12/01/22 11:35 Pulse 92 H 12/01/22 11:35 Resp 16 12/01/22 11:35 BP 98/60 L 12/01/22 11:35 Pulse Ox 94 12/01/22 11:35 Laboratory Results - last 24 hr 12/01/22 06:20 Sodium 137 Potassium 3.6 Chloride 108 H Carbon Dioxide 26.2 Anion Gap 2.8 L BUN 18 Creatinine 0.8 Est GFR (CKD-EPI 2020) 77.75 Glucose 75 Calcium 8.1 L Lactate Dehydrogenase 659 H Total Protein 5.4 L PAWSS Have you Been Recently Intoxicated or Drunk Within the Last 30 days?: No Have you Ever Experienced Previous Episodes of Alcohol Withdrawal?: No Have you ever Experienced Withdrawal Seizures?: No Have you ever Experienced Delirium Tremens(DT)s?: No Evidence of Increased Autonomic Activity (i.e. HR>120, tremor, sweating, agitation, nausea)?: No Result: 0 Time Spent with Patient Time Spent with Patient: 25-34 minutes Time was spent: preparing to see the patient(eg.review tests), ordering medications,tests, procedures, referring, communicating with other health manager wound care, indepentently interpreting results, counseling the patient and care coordination
--- NOTE | 2022-12-01 14:48 | W.PM.OP ---
Date of service: 12/01/22 Time of Service: 14:48 Operative Note Operative Note Procedure Description: Patient brought to the OR for planned left thoracentesis. Patient signed informed consent and was positioned for the procedure. On my ultrasound assessment the pleural fluid on both the left and the right side had significantly decreased in size. The effusion was not of an appropriate size to proceed with thoracentesis. Findings discussed with patient who understands. Given improvement in effusion with diuresis points to a transudative etiology and less likely to be malignant.
[2022-12-01] MEDS: Potassium Chloride 20 MEQ TABCR PO ×2 (14:55→19:43)
[2022-12-01 15:25] VITALS: BP 98/65; PULSE 104; RESP 16; TEMP 37.4; O2SAT 91
[2022-12-01] MEDS: traMADol 50 MG TAB PO (15:43)
--- NOTE | 2022-12-01 16:22 | CHAPLAIN ---
Nery has just returned from the OR when I visited. She was in the OR for a thoracentesis. She said Dr. Valdivia didn't take any fluid off because the amount of fluid had decreased that it wasn't worth trying to drain any out. God is good, Nery said. I left when Dr. Cesar arrived to check on Nery. According to Care Management notes, Nery will likely go home tomorrow.
--- NOTE | 2022-12-01 16:31 | PT.INTREAT ---
Date of service: 12/01/22 Time of Service: 16:31 PT Notes Visit Reasons: Dehydration,Metastatic Breast Cancer Inpatient Physical Therapy Treatment Note [facility] Date: 12/01/2022 PRECAUTIONS: Activity as tolerated. SUBJECTIVE: States that she is going home tomorrow. Scheduled thoracentesis did not push through per patient as the fluid in her lungs have subsided to an amount low enough that will not require the procedure. Agreeable to walking with PT for this session. Preferred to go back to bed to rest before suppoer comes. OBJECTIVE: ? PAIN: Denies ? BED MOBILITY/TRANSFERS? Sit to supine: independent Supine to sit: independent ? Stand-sit: independent? Sit-stand: independent? GAIT? Assistive Device: FWW? Weight bearing: FWB Assist: Supervision ? Distance: 250' ? Deviation: Unable to bring feet as high up as she has been doing due to fatigue THERA EX: Deferred. ASSESSMENT:? Schedules thoracentesis was deferred by binding dyer due to significant reduction in pleural effusion as shown through ultrasound with just medical management. Patient potentially will be discharged tomorrow morning. PLAN: Will provided front-wheeled walker prior to discharge. DISCHARGE RECOMMENDATIONS: [] [] Home with no services [] [X] Home with services. Home when medically cleared by hospitalist. Will benefit from PT services to ensure a smooth transistion to home with mobility performance. Will need front wheeled walker to maximize independence, reduce fall risk and minimize report of fatigue at home. [] Home with outpatient PT [] [] SNF for continued rehabilitation [] [] [facility] [] [] SNF versus LTC based on ability to participate and progress [] TREATMENT CODE/TIME: 43320 x 15 minutes beginning at 16:31 PM.
[2022-12-01 19:15] VITALS: BP 97/64; PULSE 91; RESP 16; TEMP 36.8; O2SAT 90
[2022-12-01] MEDS: Bimatoprost 0.01% 2.5 ML BTL OP (19:49)
[2022-12-01] MEDS: Apixaban 5 MG TAB PO (20:07)
[2022-12-01] MEDS: Senna TAB 1 TAB PO (22:02)
[2022-12-01] MEDS: Normal Saline Flush 10 ML SYR IVP (23:41)
[2022-12-01 23:46] VITALS: BP 111/74; PULSE 86; RESP 14; TEMP 36.4; O2SAT 94
[2022-12-02 03:15] VITALS: BP 119/74; PULSE 86; RESP 19; TEMP 36.2; O2SAT 93
[2022-12-02 07:25] LABS: Anion Gap 7.1 mmol/L (3-11); BUN 21 mg/dL (7-18); CO2 26.9 mmol/L (21.0-32.0); CREATININE 1.1 mg/dL (0.55-1.02); Calcium 8.3 mg/dL (8.5-10.1); Chloride 110 mmol/L (98-107); Estimated GFR 53.06 (mL/min/1.73m2); Glucose 75 mg/dL (74-106); Potassium 4.1 mmol/L (3.5-5.1); Sodium 144 mmol/L (136-145)
--- NOTE | 2022-12-02 07:25 | DSE_ITS ---
Date of service: 12/02/22 Time of Service: 07:25 DS: Diagnosis Discharge Diagnosis (1) Hypoxia: Status: Resolved Asessment and Plan: Secondary to bilateral pleural effusions and atelectasis of the left lower lobe improved after IV diuretics. Repeat ultrasound along showed marked decrease in her moderate size left pleural effusion. Patient no longer requiring supplemental oxygen. (2) Anemia: Status: Chronic Asessment and Plan: Stable anemia of chronic disease. No evidence of acute bleeding. H&H upon discharge was 8.8 g and 25%. Patient also has thrombocytopenia 78,000 and leukopenia at 1900 probably secondary to recent palliative chemotherapy. Repeat CBC next week. Follow-up with her oncologist next week. (3) Metastatic breast cancer: Status: Chronic Asessment and Plan: Monitor liver metastasis. Patient is on palliative chemotherapy with gemcitabine. Follow-up with oncology next week. (4) Bone metastases: Status: Acute (5) Bilateral pleural effusion: Status: Acute Asessment and Plan: Improving. Per Dr. Valdivia not enough effusion to justify thoracentesis. (6) Ascites: Status: Acute (7) Generalized weakness: Status: Acute Asessment and Plan: Generalized weakness is improving. Physical therapy recommends use of a front wheel walker at home and continued home physical therapy to increase her strength and balance. (8) Deep vein thrombosis (DVT) of left upper extremity: Status: Acute Asessment and Plan: Patient was resumed on her apixaban. (9) Discharge planning issues: Status: Resolved Asessment and Plan: Patient will be discharge home with home health services including home nursing and home physical therapy and biomedical equipment tech. Discharge Plan Disposition Patient Disposition: Home W/Home Health Services Condition: Stable Discharge Details Reason For Visit: Dehydration,Metastatic Breast Cancer Admit Date/Time: 11/28/22 17:30 Admit Provider: Kerri Barbosa Attending Provider: Kerri Barbosa Primary Care Provider: Mary Chinchilla Hospital Course Hospital Course: 72-year-old female with history of stage IV breast cancer with subsequent bone and liver metastasis, hypertension, hypothyroidism, left upper extremity DVT chronically anticoagulated with Eliquis present emergency department with increasing weakness after palliative chemotherapy (gemcitabine) on the Tuesday prior to admission she was having increased sleepiness normal shortness of breath, nonproductive cough not associated with any fever, nausea but no vomiting decreased appetite. CT of the chest was performed to rule out acute pulmonary embolus. No embolus was seen however she was found to have bilateral pleural effusions and ascites and left lower lobe atelectasis. Clinically she was felt to be dehydrated and was started on IV fluids and admitted to the hospitalist service. Palliative care was consulted see Bety Connors's note from 11/26/2022 hospice was discussed but patient prefers to follow-up with her oncologist and continue with palliative treatment for now. Patient was found to have hypoalbuminemia with an albumin level 1.9 and was placed on oral protein supplements and given IV albumin infusions. However w/ iv hydration she became more dyspneic and required oxygen supplementation up to 2 lpm to maintain her saturation. Dr. Samra Valdivia from pulmonary was consulted regarding performing a left sided thoracentesis to alleviate her dyspnea, diagnose whether or not she had a malignant pleural effusion and improve her LLL atelectasis. Dr. Valdivia set her up for thoracentesis for 12/01 after holding the patient's Eliquis for two days. However, in the interim the patient was placed on iv lasix to control her anasarca. With the albumin infusions and the iv lasix the patient diuresed adequately to the point the patient was no longer dyspneic and when the thoracentesis procedure was to be done, repeat [place]. imaging of her left pleural effusion demonstrated marked decreasse in the amount of fluid to the point that Dr. Valdivia did not feel that the benefit of thoracentesis justified any risks. The procedure was cancelled. At discharge the patient's weight was 86.8 kg and although she still had signficant bilateral leg edema (3+) it was no longer taut, but her legs were soft, her dyspnea had resolved and her abdominal ascites was improved (her abdomen still had a fluid wave but now is no longer taut and distended). The patient's pain from her metastasis was controlled w/ Duragesic patch 12.5 mcg and her need for supplemental Tramadol was reduced. Druagesic patch was prescribed for the patient at discharge. She will go home on lasix 20 mg every other day w/ follow up BMP in one week. Her CBC demonstrated an anemia which worsened after her inital iv fluid resuscitation for her dehydration but at discharge was stable at 8.8 gm and 25.3% HCT. Repeat CBC has been ordered in one week. She is to follow up w/ Dr. Cobos next week. Telephone consult while she was hospitalized was set up by her daughter but Dr. Cobos's office indicated they could not accomodate as that would have been considered a telehealth visit which is not allowed while patient is an inpatient. Home Meds and New Rx's Prescriptions: New furosemide 20 mg tablet 20 mg PO Q OTHER DAY Qty: 30 0RF fentanyl 12 mcg/hr patch 72 hour 1 patch transdermal Q72H Qty: 5 0RF naloxone 8 mg/actuation spray,non-aerosol 8 mg intranasal Q2M PRNQty: 2 0RF Rx Instructions: spray 1 dose into ONE nostril; alternate nostrils w each dose until help arrives Continued Lumigan 0.01 % drops 1 drp OP QPM vitamin B complex Tablet 1 tab PO DAILY breast prosthesis and bras 1 unit EXT DAILY Qty: 1 0RF Rx Instructions: dispense one weighted breast prosthesis, right and 3 bras s/p R mastectomy, breast CA Z90.11, C50.911 methocarbamol 500 mg tablet 500 - 1,000 mg PO TID PRN (Reason: muscle spasm) Qty: 40 0RF Rx Instructions: Back muscle spasm ondansetron HCl 4 mg tablet 4 mg PO Q8H PRN (Reason: nausea and vomiting) Qty: 30 1RF irbesartan-hydrochlorothiazide 150-12.5 mg tablet 1 tab PO .daily in AM Qty: 90 3RF Rx Instructions: BP potassium chloride 10 mEq tablet,ER particles/crystals 10 meq PO DAILY Rx Instructions: 04/08/21 per [facility] oncololgy MARTIN (DME) Foot Care and Nail Trim See Rx Instructions .Route .MEDSUPPLY Qty: 1 0RF Rx Instructions: PRN for 1 year (07/26/2022) Thank you. dexamethasone 4 mg tablet 4 mg PO BID Rx Instructions: Take 4mg BID a day the day before your chemotherapy treatment. [facility] Hem Onc [facility] prochlorperazine maleate [Compazine] 10 mg tablet 10 mg PO Q6H PRN Rx Instructions: Take 1 tablet by mouth every 6 hours as needed for nausea. [facility] Hem Onc [facility] lorazepam 0.5 mg tablet 0.5 mg PO Q6H PRN Rx Instructions: Take 1 tablet by mouth every 6 hours as needed for anxiety (nausea). [facility] Hem Onc [facility]. multivitamin Capsule 1 cap PO DAILY tramadol 50 mg tablet See Rx Instructions .ROUTE .COMPLEX PRNQty: 40 0RF Rx Instructions: 50 to 100 mg qid prn pain naloxone 4 mg/actuation spray,non-aerosol 1 spray intranasal Q2-3M PRNQty: 2 0RF Rx Instructions: spray 1 dose into ONE nostril; alternate nostrils w each dose until help arrives apixaban 5 mg (74 tabs) tablets,dose pack See Rx Instructions .ROUTE .COMPLEX Qty: 74 0RF Rx Instructions: orally per package directions- Take 5 mg PO BID gabapentin 100 mg capsule 100 mg PO BID Rx Instructions: R thigh radicular lumbar spine pain (L2) ibuprofen 600 mg tablet 600 mg PO BID Rx Instructions: PCP told her not to take it due to potential for renal compromise Discharge Instructions Instructions: Fentanyl (Absorbed through the skin), Naloxone (Into the nose) Additional Instructions: Initially when you presented to the hospital you were in acute dehydration required IV fluids however during hospital course you were found to have anasarca including ascites and bilateral pleural effusions as well as bilateral leg edema. You required IV diuretics and IV albumin to mobilize your fluid. A pulmonary consult w/ Dr. Samra Valdivia was obtained but she found that your pleural effusions had diminished w/ the diuretics and that you no longer needed a thoracentesis. You is still have some residual pleural effusions and ascites and leg edema but showed marked improvement in your physical tolerance as well as resolution of your hypoxemia. Recommend that you continue a low-dose diuretic every other day and has been prescribed furosemide 20 mg every other day. Follow-up BMP will be ordered within the next week to ensure that your not dehydrated. Should you find your appetite off and you are not eating and smitha naranjo as much is normal please stop the diuretic. You have metastatic breast cancer with bone metastasis and liver metastasis which has caused you significant pain. Previously your pain was reasonably controlled with tramadol but you were requiring increased frequency of dosing which was causing excess sedation and dry mouth and for that reason we started on low-dose fentanyl patch 12.5 mcg. This seems to have controlled your pain and kept it under reasonable control and resulted in a decreased frequency of your need for tramadol. I have prescribed fentanyl patch as well as naloxone nasal spray as a rescue medication in the event that you become excessively sedated from the narcotics. Your family as well as you should become familiar with how to use the naloxone in an emergency. Palliative care was consulted during your hospital stay and they will follow up with you. Physical therapy is recommending home physical therapy and as such we have ordered visiting nurse to come out to the home to evaluate how you are doing monitor your vital signs as well as draw lab work and request physical therapy to do home PT. Please use your walker to assist you in ambulating and to prevent any falls. Stand Alone Forms: Nursing Discharge Form Referrals: Minor Gorman [ NON-[facility] STAFF PHYSICIAN] - (Please keep your appointment you slready have set up.) Mary Chinchilla NP [Primary Care Provider] - 12/15/22 10:00 am Activity:: Activity as Tolerated Equipment/Supplies:: Walker Diet:: Low Sodium Discharge Orders Discharge Orders: Discharge Order (Routine); Ordered 12/02/22 Ordered By: Gee Cesar Other Ambulatory Orders: Basic Metabolic Panel (Routine) Timeframe: 1 Week Facility: [facility] - Location: Laboratory Outpatient - [place] Ordered By: Gee Cesar Complete Blood Count w/Diff (Routine) Timeframe: 1 Week Facility: [facility] - Location: Laboratory Outpatient - [facility] Ordered By: Gee Cesar Discharge Data Discharge Date/Time-TO BE ENTERED AT DEPARTURE: 12/02/22 09:43 DS: Summary Time Spent with Patient providing and/or coordinating discharge services: Less than 30 minutes Specific discharge activities: Interview/exam of patient; review of discharge instructions, completion of prescriptions/discharge instructions; discussion w/ nursing and CM; documentation of hospital visit Status at Discharge Functional status at discharge: uses cane/walker Overall status at discharge: patient is progressing back to baseline Mental Status: mental status grossly normal Speech and Movement: speech and movement normal Mood: congruent mood Affect: normal affect Exam Narrative Exam Narrative: Nery is alert and oriented person place time circumstance she is lying in bed watching TV she is looking forward to going home. She states she feels better today not having any dyspnea pain is well controlled. Lungs are clear anteriorly posterior still some faint rales no rhonchi or wheezing Heart is regular rate and rhythm Abdomen soft nondistended nontender normal bowel sounds Legs with 2+ pitting edema legs are no longer tense and they are nontender Psych Mental Status: mental status grossly normal Speech and Movement: speech and movement normal Mood: congruent mood Affect: normal affect DS: Data Vitals/I&O Vitals and I&O: Vital Signs Temperature 36.2 C L 12/02/22 03:15 Temperature Source Tympanic 12/02/22 03:15 Pulse 86 12/02/22 03:15 Pulse Rhythm Regular 12/01/22 23:50 Respiratory Rate 19 12/02/22 03:15 Respiratory Effort 12/01/22 23:50 Respiratory Depth Normal 12/01/22 23:50 Respiratory Pattern Normal 12/01/22 23:50 Blood Pressure 119/74 12/02/22 03:15 Blood Pressure Mean 78 11/25/22 15:03 Blood Pressure Position Supine 11/25/22 15:03 Pulse Oximetry 93 12/02/22 03:15 Oxygen Delivery Method Room Air 12/02/22 03:15 Oxygen Flow Rate 0 12/02/22 03:15 Pain Level 0 12/02/22 03:15 Comment 11/27/22 11:24 Intake & Output 12/01/22 12/01/22 12/02/22 11:59 23:59 11:59 Intake Total 420 / 420 Output Total 550 / 550 Balance -550 / -130 420 / -130 Weight 86.8 kg Intake: IV 20 / 20 Oral 400 / 400 Output: Urine 550 / 550 Other: Urine Color Dark Lexi Yellow Urine Appearance Clear Clear Urine Odor Normal Comment amount not measured pt refused to use the toileting assistance Emesis Description None Voiding Methods Toilet Bedside Commode Data Completed and Pending Labs on day of discharge: Labs from last 24 hours 12/02/22 12/01/22 12/01/22 06:37 Unknown 14:00 Sodium Pending Potassium Pending Chloride Pending Carbon Dioxide Pending Anion Gap Pending BUN Pending Creatinine Pending Est GFR (CKD-EPI 2020) Pending Glucose Pending Calcium Pending Fluid Type Cancelled Fluid Source Fluid Color Fluid Clarity Fluid pH Fluid WBC Fld Polynuclear WBCs % Fluid Mononuclear Cell Fluid Other Cells Fluid Glucose Fluid Total Protein Fluid LDH Fluid Triglycerides Cancelled AFB Source AFB Culture Final Res Fungal Specimen Source Cancelled Fungal Culture Status Cancelled Fungal Culture Final Cancelled Fungal Smear Result Cancelled M. Tuberculosis PCR Path Cons Comment AFB Smear (Ref Lab) 12/01/22 12/01/22 12/01/22 08:55 08:54 08:52 Sodium Potassium Chloride Carbon Dioxide Anion Gap BUN Creatinine Est GFR (CKD-EPI 2020) Glucose Calcium Fluid Type Cancelled Cancelled Fluid Source Cancelled Fluid Color Fluid Clarity Fluid pH Cancelled Fluid WBC Fld Polynuclear WBCs % Fluid Mononuclear Cell Fluid Other Cells Fluid Glucose Fluid Total Protein Cancelled Fluid LDH Cancelled Fluid Triglycerides AFB Source Cancelled AFB Culture Final Res Cancelled Fungal Specimen Source Fungal Culture Status Fungal Culture Final Fungal Smear Result M. Tuberculosis PCR Cancelled Path Cons Comment AFB Smear (Ref Lab) Cancelled 12/01/22 12/01/22 08:52 08:52 Sodium Potassium Chloride Carbon Dioxide Anion Gap BUN Creatinine Est GFR (CKD-EPI 2020) Glucose Calcium Fluid Type Fluid Source Cancelled Fluid Color Cancelled Fluid Clarity Cancelled Fluid pH Fluid WBC Cancelled Fld Polynuclear WBCs % Cancelled Fluid Mononuclear Cell Cancelled Fluid Other Cells Cancelled Fluid Glucose Cancelled Fluid Total Protein Fluid LDH Fluid Triglycerides AFB Source AFB Culture Final Res Fungal Specimen Source Fungal Culture Status Fungal Culture Final Fungal Smear Result M. Tuberculosis PCR Path Cons Comment Cancelled AFB Smear (Ref Lab) PFSH All Active Problems (Updated 12/02/22 @ 12:04 by Gee Cesar MD) Medication monitoring encounter (Acute) Anemia (Chronic) Goals of care, counseling/discussion (Acute) Palliative care patient (Acute) Ascites (Acute) Generalized weakness (Acute) Liver metastases (Acute) Metastatic breast cancer (Chronic) Bone metastases (Acute) Bilateral pleural effusion (Acute) Hyperbilirubinemia (Acute) Liver metastases (Acute ~09/2022) [facility] Hem Onc note 11/02/22. Osseous metastasis (Acute ~09/2022) Metastatic breast cancer (Acute ~09/2022) Subclinical hypothyroidism (Chronic 09/25/13) 2010 elevated TSH, normal FT4 2013 normalized Hyperlipidemia (Chronic 09/14/12) Total 224; LDL 137 Family history of coronary artery disease (Chronic 10/07/14) Son with IN and stents x3 at 37yo Essential hypertension (Chronic 02/13/16) Dx'ed 2016 HCTZ HCTZ-Irbesartan 05/2021 Glaucoma (Chronic) Yasemin Osteoarthritis of right knee (Chronic) x-ray 2019 Ortho referral 04/2020 Peripheral polyneuropathy (Chronic) Per [facility] HEM ONC 09/29/21 alf current use of aromatase inhibitor (Chronic) [facility] HEM ONC 09/29/21 note Lumbar radiculopathy (Acute ~2021) R ant thigh following L2; degenerative disease on bone scan 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 (Acute) Deep vein thrombosis (DVT) of left upper extremity (Acute ~09/2022) Medical History Abnormal bone scan of lumbar spine (~11/2019) L2; F/U study 2021 shows degenerative changes without concern for metastatic disease Abnormal radionuclide bone scan (~06/2022) L rib Chemotherapy-induced neuropathy Hands Encounter for central line placement (~05/15/19) PORT (chemo) Invasive ductal carcinoma of breast (~04/04/19) s/p R breast mastectomy [facility] Onc--05/2019 chemo, rad tx 11/20/2019 [facility] Rad Onc _Dr Valdes 12/18/19 F/U w Dr Rae ([facility]) S/P xrt completion [facility] note from 08/10/21 Breast 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, 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 heart related. (didn't wake up one morning) Heart disease Alcohol abuse Coronary artery disease Brother Alcohol abuse Coronary artery disease Maternal Grandfather Alcohol abuse Coronary artery disease Son Alcohol abuse Coronary artery disease Myocardial infarction Sister Hypertension Paternal Grandmother Stroke Paternal Grandfather Stroke Other Family history of coronary artery disease Social History Smoking/Tobacco Use Status: Never Smoking risk assessment performed?: Yes Alcohol Intake: current Alcohol Intake frequency: holidays/special occasions only Drug use: Never Substance use type: does not use Adopted: No Caregiver/Support person: No Foster care: No Household members: spouse and family Housing: house Number of Children: 3 number of grandchildren: 9 Communication Needs: None Education Level: master's degree Do you need help understanding health information?: Rarely 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, [employer]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[employer] Pets and animals: Yes (2 cats and dog) Sexually active: No Do you think of yourself as: straight/heterosexual Current gender identity: female What is your relationship status?: How often do you talk on the phone with friends or family?: three or more times per week How often do you get together with friends or relatives?: three or more times per week How often do you attend cheondoism or moravian services?: 4 or more times per year Do you belong to any clubs or organized social groups?: yes Panel score (0-1 are the most socially isolated patients): 4 What type of physical activity do you participate in: walking Duration: 15-30 minutes/day Frequency: 1-2 times per week Nemo/Adventism: Jew Special nemo needs: No Seatbelt use: always Helmet use: No Drive intox or ride w/intox marine engine driver: No Do you feel safe at home: Yes Do you feel safe in your relationship?: Yes Time Spent with Patient Time Spent with Patient: <45 minutes Time was spent: preparing to see the patient(eg.review tests), obtaining and/or reviewing separately otained hiistory, ordering medications,tests, procedures, indepentently interpreting results, counseling the patient and care coordination
[2022-12-02 07:38] VITALS: BP 97/63; PULSE 88; RESP 18; TEMP 36.5; O2SAT 90
--- NOTE | 2022-12-02 07:47 | PDOC.HHF2F ---
Home Health Referral Home Health Orders Clinical synopsis of why skilled professionals are needed: Patient has metastatic breast cancer and presented to the hospital acutely dehydrated, undernourished, but w/ anasarca including ascites, bilateral pleural effusions and bilateral leg edema and was hypoxic with any kind of activity. She required resuscitation w/ iv fluids initially, and iv albumin but later required iv diuretics to remove her excess 3rd spaced fluid. Patient has considerable pain w/ movement due to her bone metastasis from her breast cancer. She needs nursing monitoring of her vitals, her hydration status, drawing of blood work and monitoring her electrolytes and renal functio as well as monitoring of recent medication changes. This included the addition of fentanyl patch 12.5 mcg which is controlling her bone pain. The addition of low dose furosemide 20 mg every other day to help reduce her edema. Medical diagnosis necessitation home health referral: metastatic breast cancer, with bone and liver metastasis, anasarca, ambulatory dysfunction, generalized weakness from her cancer and her anemia of chronic disease Registered Nurse: Check all that apply Instruct on new or changed medication(s)/assess compliance: Ordered Assess for exacerbation of medical condition, instruct patient/caregivers on signs and symptoms to report for early detection: Ordered Physical Therapist: Check all that apply Increase strength & endurance for safe mobility at home: Ordered To design/establish home maintenance program: Ordered Fall reduction therapy program for patient with history of frequent falls: Ordered Home safety evaluation and teaching/gait training including stair management (if applicable): Ordered Product Info Specialist: Assist with community resources: Ordered Assist with half-way care planning: Ordered Home Bound Status Requires the aid of supportive device (check all that apply): Walker Patient has a condition such that leaving home is medically contraindicated (Describe): increased pain from metastatic breast cancer along with anasarca cause increased dyspnea and pain such that travel outside her home is deleterious to her health Describe why leaving home would require a considerable and taxing effort: Side effects from pain medication (sedation/drowsiness), Requires frequent rest periods and Safety Concerns: describe (increased risk of falls) Encounter Date and Reason: I certify that a FTF encounter for this patient was performed on December 02, 2022 and that such encounter was related to the primary reason the patient requires home health services. The encounter was conducted in the following manner: By me as the certifying physician, SLOT MACHINE KEY PERSON, PA or By an inpatient physician, SLOT MACHINE KEY PERSON or PA during an inpatient stay who communicated findings to me, Certification And Authentication I certify that I composed the above information based on my clinical judgment relating to this patient's medical condition and, if applicable, clinical findings communicated to me by the NPP or inpatient physician who performed the FTF encounter. Name of Provider that will be monitoring home health services: Mary Chinchilla
[2022-12-02] MEDS: Gabapentin 100 MG CAP PO (08:38)
[2022-12-02] MEDS: Dronabinol 2.5 MG CAP PO (08:38)
[2022-12-02] MEDS: Vitamins B Comp w/C TAB 1 TAB PO (08:38)
[2022-12-02] MEDS: Sucralfate 1 GM TAB PO (08:38)
[2022-12-02] MEDS: Potassium Chloride 20 MEQ TABCR PO (08:38)
[2022-12-02] MEDS: Apixaban 5 MG TAB PO (08:39)
[2022-12-02] MEDS: Pantoprazole 40 MG TABCR PO (08:39)
[2022-12-02] MEDS: Docusate Sodium 100 MG CAP PO (08:39)
[2022-12-02] MEDS: Multivitamin TAB 1 TAB PO (08:39)
[2022-12-02] MEDS: Ondansetron 4 MG/2 ML VIAL IVP (08:47)
[2022-12-02] MEDS: Normal Saline Flush 10 ML SYR IVP ×2 (08:48→09:34)
[2022-12-02] MEDS: Heparin 500 UNITS/5 ML SYRINGE IV (09:34)
--- NOTE | 2022-12-02 09:46 | PDOC.CMDIS ---
- If Service Date Differs Date of service: 12/02/22 Time of Service: 09:46 LACE Index Scoring Tool - Questions: Length of Stay (in days): 4 - 6 Acuity (Admit via E.D.?): Yes Care Management Discharge Reason for Hospitalization: Dehydration, Metastatic Breast Cancer Discharge Plan: Nery is discharged home via private vehicle with family. Nery will follow up with community providers and discharge plan of care as prescribed. New [facility] services are ordered and new RX's are transmitted to [facility]. Nery will follow up with her PCP on 12/15/[address] Gorman as scheduled. Outpatient palliative to follow. Patient/Family Education Needs: Review discharge instructions, limitations, medications and plan to follow up with community providers. Discuss Ask Me Three and goals of self care. Services Needed at Discharge: Home Health Care Services ([facility] RN/PT/MSW. ACEVEDO notified Juan @ [facility] of discharge.)
--- NOTE | 2022-12-02 16:48 | INDS_ITS ---
Date of service: 12/02/22 PT Notes Visit Reasons: Dehydration,Metastatic Breast Cancer Physical Therapy Inpatient Discharge Summary Date: 12/02/2022 Dates of Service: 11/26/2022 through 12/01/2022 This is a clinical summary of care provided for the duration of dates listed above. No charge was made in the completion of this documentation. Referring Doctor: Kerri Barbosa MD PT Orders: PT CONSULT: limited ability to ambulate Precautions: Standard.? Activity as tolerated? Patient Profile/Admitting Diagnosis:?? Patient is a 72-year-old female with past medical history sent significant for breast cancer with disease to the liver and bone who was admitted on 11/25/22 for management of acute dehydration, ascites, bilateral pleural effusion, and generalized weakness. PMHX:? All Active Problems?(Updated 11/25/22 @ 17:44 by Kerri Barbosa MD) Discharge planning issues (Acute) Ascites (Acute) Generalized weakness (Acute) Liver metastases (Acute) Metastatic breast cancer (Acute) Bone metastases (Acute) Acute dehydration (Acute) Bilateral pleural effusion (Acute) Hyperbilirubinemia (Acute) Liver metastases (Acute ~09/2022) [facility] [place] 11/02/22. Osseous metastasis (Acute ~09/2022) Metastatic breast cancer (Acute ~09/2022) Subclinical hypothyroidism (Chronic 09/25/13) 2010 elevated TSH, normal FT4 2012 normalized Hyperlipidemia (Chronic 09/14/12) Total 224; LDL 137 Family history of coronary artery disease (Chronic 10/07/14) Son with IA and stents x3 at 37yo Essential hypertension (Chronic 02/13/16) Dx'ed 2015 HCTZ HCTZ-Irbesartan 05/2021 Glaucoma (Chronic) PhippsOsteoarthritis of right knee (Chronic) x-ray 2019 Ortho referral 04/2020Peripheral polyneuropathy (Chronic) Per [facility] 09/29/21 USP current use of aromatase inhibitor (Chronic) [facility] 09/29/21 note Lumbar radiculopathy (Acute ~2021) R ant thigh following L2; degenerative disease on bone scan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 (Acute) Deep vein thrombosis (DVT) of left upper extremity (Acute ~09/2022) Medical History?(Updated 11/25/22 @ 17:44 by Kerri Barbosa MD) Abnormal bone scan of lumbar spine (~11/2019) L2; F/U study 2021 shows degenerative changes without concern for metastatic disease Abnormal radionuclide bone scan (~06/2022) L rib Chemotherapy-induced neuropathy Hands Encounter for central line placement (~05/15/19) PORT (chemo)Invasive ductal carcinoma of breast (~04/04/19) s/p R breast mastectomy [facility] Onc--05/2019 chemo, rad tx 11/20/2019 [facility] Rad Onc _Dr Valdes 12/18/19 F/U w Dr Rae ([facility] S/P xrt completion [facility] note from 08/10/21 Breast 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, 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 Lives in a private home with her , who has some mobility issues, but is able to care for himself independently. Equipment Owned/DME: Cane Subjective: NT. See most recent DEMENTIA PROGRAM DIRECTOR notes. Objective:? General Observation: NT. See most recent DEMENTIA PROGRAM DIRECTOR notes. Mental Status: NT. See most recent DEMENTIA PROGRAM DIRECTOR notes. Pain: NT. See most recent DEMENTIA PROGRAM DIRECTOR notes. ROM: Right Upper Extremity: ? Shoulder Flexion lacks the last 25% of AROM. Shoulder abduction lacks the last 25% of AROM. Elbow flexion WFL. Wrist flexion WFL. Functional opening and closing of hand WFL. Left Upper Extremity:? Shoulder Flexion lacks the last 25% of AROM. Shoulder abduction lacks the last 25% of AROM. Elbow flexion WFL. Wrist flexion WFL. Functional opening and closing of hand WFL. Right Lower Extremity: Hip flexion WFL. Hip abduction WFL. Knee flexion WFL. Ankle dorsiflexion WFL. Ankle plantarflexion WFL. Left Lower Extremity: Hip flexion WFL. Hip abduction WFL. Knee flexion WFL. Ankle dorsiflexion WFL. Ankle plantarflexion WFL Strength: Right Upper Extremity: Shoulder flexors 3-/5. Shoulder abductors 3-/5. Elbow flexors 4/5. Elbow extensors 4/5. Pre K Teacher strong. Left Upper Extremity: Shoulder flexors 3-/5. Shoulder abductors 3-/5. Elbow flexors 4/5. Elbow extensors 4/5. Pre K Teacher strong. Right Lower Extremity: Hip flexors 4-/5. Hip abductors 4-/5. Knee flexors 4-/5. Knee extensors 4-/5. Ankle dorsiflexors 4-/5. Ankle plantarflexors 4-/5. Left Lower Extremity:Hip flexors 3+/5. Hip abductors 3+/5. Knee flexors 53+5. Knee extensors 3+/5. Ankle dorsiflexors 3+/5. Ankle plantarflexors 3+/5. BED MOBILITY/TRANSFERS? Sit to supine: independent Supine to sit:? independent ? Stand-sit: independent? Sit-stand: independent? GAIT? Assistive Device: FWW? Weight bearing: FWB Assist: Supervision ? Distance: 250' ? Deviation: Unable to bring feet as high up as she has been doing due to fatigue Balance:? Static Sitting: Normal Dynamic Sitting: Normal Static Standing: Fair Dynamic Standing: Fair Assessment:?? Patient is a 72-year-old female with past medical history sent significant for breast cancer with disease to the liver and bone who was admitted on 11/25/22 for management of acute dehydration, ascites, bilateral pleural effusion, and generalized weakness. Patient presents with clinical signs and symptoms consistent with current/admitting diagnoses that have resulted to mobility limitations, gait instability, generalized weakness, and overall ADL decline as demonstrated by the following impairment level findings: 1.? Decreased strength to B UE/LE major muscle groups with L UE/LE more affected 2.? Impaired standing balance 3.? Impaired activity tolerance 4.? Limitation of joint range of motion in B shoulders and hips 5.? Fatigue Impairments are contributing to the following functional limitations: 1.? Difficulty with ambulation without assistive device 2.? Increased completion time for mobility ADL performance 3.? Increased risk for falls 4.? Difficulty with managing steps alone safely Goals: Goals X1 week 1. Supine-Sit independent MET 2. Sit-Supine independent MET 3. Sit-Stand independent MET 4. Stand-Sit independent with SPC NOT MET 5. Bed-Chair independent with SPC NOT MET 6. Chair-Bed independent with SPC NOT MET 7. Independent gait on level surface with use of SPC for at least 300 feet without report of pain nor dyspnea NOT MET 8. Independent stair negotiation while holding onto B rails for at least 3 steps without report of pain nor dyspnea NOT MET 9. Independent with home exercise program NOT MET 10. Good static and dynamic standing balance/tolerance NOT MET DISCHARGE RECOMMENDATIONS: [] ? Home with no services [] [X] ? Home with services.? Home when medically cleared by hospitalist.? Recommend home health PT services in order to progress mobility level using least restrictive assistive ambulatory device, assess home safety, identify additional equipment needs, and establish a functional maintenance program that will increase ability of patient to remain at home. [] ? Home with outpatient PT [] [] ? SNF for continued rehabilitation [] [] ? [facility] [] [] ? SNF versus LTC based on ability to participate and progress [] TREATMENT CODE/TIME: NC Thank you for the opportunity to participate in the care of this patient. Arminda Huynh PT, DPT, CLT [facility] [place], [place]
== END 2022-12-02 09:43 | disposition home health service (06) | DRG 187 ==
LOC: ER 15:32 → MS 16:51
PROVIDERS: Internal Medicine; Student in an Organized Health Care Education/Training Program; Admitting Provider Internal Medicine; Emergency Provider Physician Assistant; PCP Nurse Practitioner Adult Health; Visit Provider Internal Medicine
PROC: (CPT 32554; principal; 2022-12-01 14:15)
DX: J90 Pleural effusion, not elsewhere classified (principal); C77.3 Secondary and unspecified malignant neoplasm of axilla and upper limb lymph nodes; C78.7 Secondary malignant neoplasm of liver and intrahepatic bile duct; C79.51 Secondary malignant neoplasm of bone; R18.8 Other ascites; K76.6 Portal hypertension; J98.11 Atelectasis; E86.0 Dehydration; G89.3 Neoplasm related pain (acute) (chronic); C50.911 Malignant neoplasm of unspecified site of right female breast; Z79.899 Other long term (current) drug therapy; R09.02 Hypoxemia; R53.1 Weakness; E03.9 Hypothyroidism, unspecified; E78.5 Hyperlipidemia, unspecified; I10 Essential (primary) hypertension; H40.9 Unspecified glaucoma; M17.11 Unilateral primary osteoarthritis, right knee; G62.9 Polyneuropathy, unspecified; Z79.811 Long term (current) use of aromatase inhibitors; Z86.718 Personal history of other venous thrombosis and embolism; Z90.11 Acquired absence of right breast and nipple; Z79.01 Long term (current) use of anticoagulants; E88.09 Other disorders of plasma-protein metabolism, not elsewhere classified; I95.9 Hypotension, unspecified; D69.59 Other secondary thrombocytopenia; T45.1X5A Adverse effect of antineoplastic and immunosuppressive drugs, initial encounter; D70.1 Agranulocytosis secondary to cancer chemotherapy; D63.8 Anemia in other chronic diseases classified elsewhere
CPT/HCPCS: 32554; 36410; 71275; 74177; 80048; 80053; 80076; 83690; 84145; 86850; 86900; 86901; 87040; 87102; 87116; 87206; 87637; 93005; 93306; 94618; 96361; 96374; 96375; 97162; 97530; 99285; 81003; 81015; 81373; 82607; 82728; 82746; 83540; 83550; 83615; 83735; 83880; 83986; 84155; 84157; 84484; 85014; 85018; 85025; 87070; 87075; 87205; 89051; 93010; 99223; 99231; 99232; 99238; J1170; J1941; J2405; J3490

== ENCOUNTER 2022-12-07 03:07 | Outpatient (RCR) | payer OTHER, SELFPAY ==
[2022-11-16] MEDS: Normal Saline Flush 10 ML SYR IVP (08:18)
[2022-11-16 08:32] LABS: Abs Immature Grans 0.09 10^3/uL (0.0-0.06); Absolute Basophil Count 0.03 10^3/uL (0.0-0.2); Absolute Eosinophil Count 0.01 10^3/uL (0.0-0.7); Absolute Lymphocyte Count 0.61 10^3/uL (1.2-3.4); Absolute Monocyte Count 0.51 10^3/uL (0.1-0.8); Absolute Neutrophil Count 0.94 10^3/uL (1.2-6.7); Basophils % 1.4; Eosinophils % 0.5; HCT 36.9 % (36.0-46.0); HGB 12.5 g/dL (11.2-15.7); Immature Grans % 4.1; Lymphocytes % 27.9; MCH 34.1 pg (27.0-33.0); MCHC 33.9 % (32.0-36.0); MCV 101 fL (80-95); MPV 11.1 fL (8.0-11.0); Monocytes % 23.3; Neutrophils % 42.8; Nucleated RBC 11.4 % (0.0-0.3); Platelet Count 137 10^3/uL (130-400); RBC 3.67 10^6/uL (3.93-5.22); RDW 16.5 % (11.7-14.6); RDW-SD 57.1 fL; WBC 2.19 10^3/uL (4.4-10.8)
[2022-11-16 08:48] LABS: ALT 226 U/L (14-59); AST 405 U/L (15-37); Albumin 2.4 g/dL (3.4-5.0); Alkaline Phosphatase 426 U/L (46-116); Anion Gap 7.9 mmol/L (3-11); BUN 34 mg/dL (7-18); Bilirubin, Total 2.6 mg/dL (0.2-1.0); CO2 26.1 mmol/L (21.0-32.0); CREATININE 1.2 mg/dL (0.55-1.02); Calcium 8.4 mg/dL (8.5-10.1); Chloride 111 mmol/L (98-107); Glucose 132 mg/dL (74-106); Potassium 3.3 mmol/L (3.5-5.1); Sodium 145 mmol/L (136-145); Total Protein 6.5 g/dL (6.4-8.2)
[2022-11-16 08:53] LABS: Diff Comment Diff Reviewed
[2022-11-16 08:54] LABS: Polychromasia Present
[2022-11-23 09:12] LABS: Abs Immature Grans 0.03 10^3/uL (0.0-0.06); Absolute Basophil Count 0.04 10^3/uL (0.0-0.2); Absolute Eosinophil Count 0.02 10^3/uL (0.0-0.7); Absolute Lymphocyte Count 0.55 10^3/uL (1.2-3.4); Absolute Monocyte Count 0.96 10^3/uL (0.1-0.8); Absolute Neutrophil Count 5.59 10^3/uL (1.2-6.7); Basophils % 0.6; Eosinophils % 0.3; HCT 37.8 % (36.0-46.0); HGB 12.6 g/dL (11.2-15.7); Immature Grans % 0.4; Lymphocytes % 7.6; MCH 33.9 pg (27.0-33.0); MCHC 33.3 % (32.0-36.0); MCV 102 fL (80-95); Monocytes % 13.4; Neutrophils % 77.7; Platelet Count 141 10^3/uL (130-400); RBC 3.72 10^6/uL (3.93-5.22); RDW 20.9 % (11.7-14.6); RDW-SD 67.5 fL; WBC 7.19 10^3/uL (4.4-10.8)
[2022-11-23] MEDS: Normal Saline Flush 10 ML SYR IVP (09:23)
[2022-11-23 09:28] LABS: ALT 127 U/L (14-59); AST 250 U/L (15-37); Albumin 2.4 g/dL (3.4-5.0); Alkaline Phosphatase 499 U/L (46-116); Anion Gap 13.5 mmol/L (3-11); BUN 44 mg/dL (7-18); Bilirubin, Total 2.9 mg/dL (0.2-1.0); CO2 22.5 mmol/L (21.0-32.0); CREATININE 1.2 mg/dL (0.55-1.02); Calcium 8.8 mg/dL (8.5-10.1); Chloride 103 mmol/L (98-107); Glucose 89 mg/dL (74-106); Potassium 3.8 mmol/L (3.5-5.1); Sodium 139 mmol/L (136-145); Total Protein 6.4 g/dL (6.4-8.2)
[2022-11-23 09:41] LABS: Anisocytosis 2+; Diff Comment Diff Reviewed; Polychromasia Present
[2022-12-07] MEDS: Normal Saline Flush 10 ML SYR IVP (08:45)
[2022-12-07 09:04] LABS: Absolute Basophil Count 0.01 10^3/uL (0.0-0.2); Absolute Eosinophil Count 0.07 10^3/uL (0.0-0.7); Absolute Lymphocyte Count 0.71 10^3/uL (1.2-3.4); Absolute Neutrophil Count 9.92 10^3/uL (1.2-6.7); Basophils % 0.1; Eosinophils % 0.6; HCT 30.3 % (36.0-46.0); HGB 10.9 g/dL (11.2-15.7); Immature Grans % 0.8; MCH 36.2 pg (27.0-33.0); MCV 101 fL (80-95); MPV 11.9 fL (8.0-11.0); Monocytes % 9.2; Neutrophils % 83.3; Nucleated RBC 1.1 % (0.0-0.3); Platelet Count 146 10^3/uL (130-400); RBC 3.01 10^6/uL (3.93-5.22); RDW 25.9 % (11.7-14.6); RDW-SD 75.6 fL; WBC 11.91 10^3/uL (4.4-10.8)
[2022-12-07 09:19] LABS: ALT 106 U/L (14-59); AST 292 U/L (15-37); Albumin 3.1 g/dL (3.4-5.0); Alkaline Phosphatase 453 U/L (46-116); Anion Gap 13.6 mmol/L (3-11); BUN 28 mg/dL (7-18); Bilirubin, Total 10.4 mg/dL (0.2-1.0); CO2 22.4 mmol/L (21.0-32.0); CREATININE 1.4 mg/dL (0.55-1.02); Calcium 8.4 mg/dL (8.5-10.1); Chloride 105 mmol/L (98-107); Estimated GFR 39.73 (mL/min/1.73m2); Glucose 89 mg/dL (74-106); Potassium 3.6 mmol/L (3.5-5.1); Sodium 141 mmol/L (136-145); Total Protein 6.2 g/dL (6.4-8.2)
[2022-12-07 09:47] LABS: Anisocytosis 2+; Diff Comment RBC Morph Reviewed; Target Cells 2+
[2022-12-08 14:45] LABS: Cancer Ag 15-3 488 U/mL (<30)
== END 2022-12-14 23:59 | disposition home or self-care (01) ==
LOC: INF 03:07
PROVIDERS: PCP Nurse Practitioner Adult Health; Visit Provider Internal Medicine
DX: Z45.2 Encounter for adjustment and management of vascular access device (principal); C50.919 Malignant neoplasm of unspecified site of unspecified female breast
CPT/HCPCS: 36591; 80053; 86304; 85025; 86300

== ENCOUNTER 2022-12-19 14:56 | Outpatient (REF) | payer OTHER, SELFPAY ==
[2022-12-19 15:38] LABS: Bilirubin Large (Negative); Blood Trace-intact (Negative); Clarity Cloudy (Clear); Glucose 100 mg/dL (Negative); Ketones 15 mg/dL (Negative); Leukocyte Esterase Negative (Negative); Nitrite Negative (Negative); pH 5.5 (5-8)
[2022-12-19 15:46] LABS: Bacteria Few HPF (Negative); C & S Indicated? Yes; Casts 3-5 Hyaline LPF (Negative); Crystals Negative HPF (Negative); Epithelial Cells Few HPF (Negative); Mucus Trace (Negative)
== END 2022-12-19 14:57 | disposition home or self-care (01) ==
LOC: LBN 14:56
PROVIDERS: PCP Nurse Practitioner Adult Health; Visit Provider Nurse Practitioner Adult Health
DX: R30.0 Dysuria (principal)
CPT/HCPCS: 81003; 81015; 87086